=== PATIENT | female | born 1940 ===

== ENCOUNTER 2017-04-15 13:18 | Emergency (ER) | payer MEDICARE ==
[2017-04-15 13:19] VITALS: PULSE 72
[2017-04-15 13:28] VITALS: BP 117/62; PULSE 80; RESP 20; TEMP 98.1; O2SAT 99; BMI 23.0
--- NOTE | 2017-04-15 13:42 | ED PDOC ---
Arrival/HPI - General Historian: Patient - General Chief Complaint: Trauma Time Seen by Provider: 04/15/17 13:34 - History of Present Illness Narrative History of Present Illness (Text): 04/15/17 13:38 77 y/o female, pmh including htn/gerd/chf/copd, allergic to sulfa medication, c/ o lt. wrist injury and pain s/p fall and landed on the lt. wrist last night while slipped in the bathroom. Pt. has no head or neck injury, no numbness or tingling, no palpitation, no rash, no dizziness, no difficulty moving the lt. hand and lt. hand 5 digits, no palpitation, no chest pain or shortness of breath , no change in vision, no other medical or psychological complaints. (José Miguel Og) Past Medical History - Provider Review Nursing Documentation Reviewed: Yes - Infectious Disease Hx of Infectious Diseases: None - Tetanus Immunization Tetanus Immunization: Unknown - Cardiac Hx Pacemaker: Yes - Pulmonary Hx Asthma: Yes Hx Chronic Obstructive Pulmonary Disease (COPD): Yes - Neurological Hx Seizures: Yes - HEENT Hx HEENT Disorder: Yes Hx Cataracts: Yes (sx b/l) Other/Comment: eye glasses - Renal Hx Renal Disorder: No - Endocrine/Metabolic Hx Diabetes Mellitus Type 1: Yes Hx Diabetes Mellitus Type 2: Yes Hx Hypothyroidism: Yes - Hematological/Oncological Hx Blood Disorders: Yes Hx Anemia: Yes (iron deficiency-IRON INFUSIONS) - Integumentary Hx Dermatological Disorder: No - Musculoskeletal/Rheumatological Hx Arthritis: Yes - Gastrointestinal Hx Gastrointestinal Disorders: Yes (gastritis/ hiatal hernia, gi bleed) - Genitourinary/Gynecological Hx Genitourinary Disorders: No - Psychiatric Hx Psychophysiologic Disorder: Yes (SMOKES 5 CIG A DAY. SMOKED FOR 50 YRS) Hx Anxiety: Yes Hx Substance Use: No - Surgical History Hx Cardiac Catheterization: Yes (5 stents) - Anesthesia Hx Anesthesia Reactions: No Hx Malignant Hyperthermia: No - Suicidal Assessment Feels Threatened In Home Enviroment: No Family/Social History - Physician Review Nursing Documentation Reviewed: Yes Family/Social History: Unknown Family HX Smoking Status: Current Some Days Smoker Hx Alcohol Use: No Hx Substance Use: No Hx Substance Use Treatment: No Allergies/Home Meds Allergies/Adverse Reactions: Allergies Sulfa (Sulfonamide Antibiotics) Allergy (Mild, Verified 08/08/16 02:44) RASH Home Medications: Home Meds Medication Instructions Recorded Confirmed Furosemide [Lasix] 40 mg PO QAM 05/26/12 03/13/17 Levothyroxine Sodium 75 mcg PO QAM 05/26/12 03/13/17 Warfarin [Coumadin] 4 mg PO DAILY 05/26/12 03/13/17 Gabapentin [Neurontin] 100 mg PO TID 05/22/15 03/13/17 Omeprazole [PrilOSEC] 40 mg PO DAILY 05/22/15 03/13/17 Simvastatin 40 mg PO QAM 05/22/15 03/13/17 ALPRAZolam [Xanax] 1 tab PO QPM 12/01/15 03/13/17 Carvedilol [Coreg] 1 tab PO BID 12/01/15 03/13/17 Cyclobenzaprine [Flexeril] 1 tab PO DAILY 12/01/15 03/13/17 Digoxin [Digitek] 1 tab PO DAILY 12/01/15 03/13/17 Isosorbide Mononitrate [Imdur] 2 tab PO DAILY 12/01/15 03/13/17 Lisinopril [Zestril] 1 tab PO DAILY 12/01/15 03/13/17 Meclizine [Antivert] 2.5 mg PO TID 12/01/15 03/13/17 Metformin HCl [Glucophage] 500 mg PO BID 12/01/15 03/13/17 Montelukast [Singulair] 1 tab PO HS 12/01/15 03/13/17 Naproxen Sodium [Naproxen Sodium 1 tab PO BID 12/01/15 03/13/17 ER] Oxycodone HCl/Acetaminophen 1 tab PO Q6H PRN 12/01/15 03/13/17 [Oxycodone-Acetaminophen 5-325] Prednisone 5 mg PO DAILY 12/01/15 03/13/17 Prochlorperazine [Compazine Tab] 5 tab PO Q4 12/01/15 03/13/17 Zolpidem [Ambien] 10 mg PO HS 12/01/15 03/13/17 Ergocalciferol (Vitamin D2) 50,000 units PO .WEEKLY 08/02/16 03/13/17 [Vitamin D] amLODIPine [Norvasc] 5 mg PO DAILY 08/02/16 03/13/17 traMADol [Ultram] 50 mg PO DAILY 08/02/16 03/13/17 Albuterol HFA [Ventolin HFA 90 0.09 mg IH Q8 PRN 03/13/17 03/13/17 mcg/actuation (8 g)] Review of Systems - Review of Systems Constitutional: absent: Fatigue, Fevers Eyes: absent: Vision Changes ENT: absent: Hearing Changes Respiratory: absent: SOB, Cough Cardiovascular: absent: Chest Pain Gastrointestinal: absent: Abdominal Pain, Diarrhea, Nausea, Vomiting Musculoskeletal: Arthralgias. absent: Back Pain, Neck Pain, Joint Swelling, Myalgias Skin: absent: Rash, Pruritis, Skin Lesions, Laceration, Abscess, Ulcer, Cellulitis Neurological: absent: Headache, Dizziness, Focal Weakness Psychiatric: absent: Anxiety, Depression, Suicidal Ideation Physical Exam Appearance: Positive for: Well-Appearing, Non-Toxic, Comfortable Pain Distress: Mild - Systems Exam Head: Present: Atraumatic, Normocephalic Pupils: Present: PERRL Extroacular Muscles: Present: EOMI Conjunctiva: Present: Normal Mouth: Present: Moist Mucous Membranes Neck: Present: Normal Range of Motion Respiratory/Chest: Present: Clear to Auscultation, Good Air Exchange. No: Respiratory Distress, Accessory Muscle Use Cardiovascular: Present: Regular Rate and Rhythm, Normal S1, S2. No: Murmurs Abdomen: Present: Normal Bowel Sounds. No: Tenderness, Distention, Peritoneal Signs Back: Present: Normal Inspection Upper Extremity: Present: Normal Inspection, Other (Lt. wrist/hand: +ttp on the distal radial region with skin intact, visible ecchymosis, no scaphoid tenderness, no hand or finger tenderness, FROM without limitation, sensation intact, motor 5/5, +radial pulse, capillary refill< 2 seconds, neurovascular intact. ). No: Cyanosis, Edema Lower Extremity: Present: Normal Inspection. No: Edema Neurological: Present: GCS=15, CN II-XII Intact, Speech Normal Skin: Present: Warm, Dry, Normal Color. No: Rashes Psychiatric: Present: Alert, Oriented x 3, Normal Insight, Normal Concentration Vital Signs Temp Pulse Resp BP Pulse Ox 04/15/17 13:26 98.1 F 80 20 117/62 99 04/15/17 13:23 80 18 100 Medical Decision Making - RAD Interpretation Hall Manager: Radiologist ED Course and Treatment: I was available for consultation during PA evaluation. The chart was reviewed by me, and I agree with disposition. The documented history was done by the physician retail manager in training. The documented physical exam was done by the physician retail manager in training. The documented procedures were done by the physician retail manager in training. (Aaron Bañuelos) 04/15/17 13:41 -pt. refused pain meds -Lt. wrist xray ordered. -acewrap applied with neurovascular intact, closed skin injury -Discharge home with brant wrap, sling, ice compression, tylenol for pain, follow up with your own pmd and orthopedic within 2 days, return to the ER for any new or worsening signs or symptoms. (José Miguel Og) - RAD Interpretation Radiology Orders: 04/15/17 13:38 WRIST, LEFT 3 VIEWS [RAD] Stat HISTORY: lt. wrist injury s/p fall last night COMPARISON: None. FINDINGS: BONES: Normal. No fracture. JOINTS: Normal. No dislocation. SOFT TISSUES: Normal. OTHER FINDINGS: None. IMPRESSION: Normal left wrist radiographs. (José Miguel Og) - PA / TAFFY PULLER / Resident Statement / has reviewed & agrees with the documentation as recorded. Disposition/Present on Arrival - Present on Arrival Any Indicators Present on Arrival: No History of DVT/PE: No History of Uncontrolled Diabetes: Yes Urinary Catheter: No History of Decub. Ulcer: No History Surgical Site Infection Following: None - Disposition Have Diagnosis and Disposition been Completed?: Yes Disposition Time: 13:42 Patient Plan: Discharge - Disposition Diagnosis: Accidental fall, Wrist pain Disposition: HOME/ ROUTINE Patient Problems: Current Active Problems Problem Status Onset Accidental fall Acute Condition: GOOD Additional Instructions: -Discharge home with brant wrap, sling, ice compression, tylenol for pain, follow up with your own pmd and orthopedic within 2 days, return to the ER for any new or worsening signs or symptoms. Prescriptions: Acetaminophen [Tylenol 325mg tab] 2 tab PO QID PRN #30 tab PRN Reason: Other Referrals: Christian Oliveros MD [Primary Care Provider] - Follow up with primary Rod Leiva DO [Staff Provider] - Follow up with primary Forms: WORK NOTE
--- NOTE | 2017-04-15 14:43 | RAD ---
PROCEDURE: Left Wrist Radiographs. HISTORY: lt. wrist injury s/p fall last night COMPARISON: None. FINDINGS: BONES: Normal. No fracture. JOINTS: Normal. No dislocation. SOFT TISSUES: Normal. OTHER FINDINGS: None. IMPRESSION: Normal left wrist radiographs.
== END 2017-04-15 15:38 | disposition home or self-care (01) ==
LOC: ED 13:18
DX: M25.532 Pain in left wrist (principal); W01.0XXA Fall on same level from slipping, tripping and stumbling without subsequent striking against object, initial encounter; Y93.E8 Activity, other personal hygiene; Y92.002 Bathroom of unspecified non-institutional (private) residence as the place of occurrence of the external cause

== ENCOUNTER 2017-08-26 16:25 | Observation (INO) | payer MEDICARE, MEDICAID ==
[2017-08-26 16:31] VITALS: BMI 22.6
[2017-08-26] MEDS ORDERED: Albuterol-Ipratrop 3 mg / 0.5 (3 ml) UD IH STA ×4 (16:38→18:58)
--- NOTE | 2017-08-26 17:00 | ED PDOC ---
Arrival/HPI - General Time Seen by Provider: 08/26/17 16:26 Historian: Patient - History of Present Illness Narrative History of Present Illness (Text): 08/26/17 16:55 A 77 year old female, whose past medical history includes COPD and CHF, brought into the emergency department by EMS for shortness of breath. Patient reports she was feeling fine until yesterday when she developed a non-productive cough. She states while ambulating around her shortness of breath worsened causing her to call EMS. Patient received Duoneb treatments on route to emergency room with mild improvement of symptoms. Patient notes chest tightness which is consistent with prior COPD exacerbations. Patient denies any fever, chills, nausea, vomiting, abdominal pain or any other complaints. PMD: Dr. Oliveros Hemtaologist: Dr. Newman Time/Duration: Other (yesterday) Symptom Course: Worsening Quality: Other Context: Home Past Medical History - Provider Review Nursing Documentation Reviewed: Yes - Infectious Disease Hx of Infectious Diseases: None - Tetanus Immunization Tetanus Immunization: Unknown - Cardiac Hx Pacemaker: Yes - Pulmonary Hx Asthma: Yes Hx Chronic Obstructive Pulmonary Disease (COPD): Yes - Neurological Hx Seizures: Yes - HEENT Hx HEENT Disorder: Yes Hx Cataracts: Yes (sx b/l) Other/Comment: eye glasses - Renal Hx Renal Disorder: No - Endocrine/Metabolic Hx Diabetes Mellitus Type 1: Yes Hx Diabetes Mellitus Type 2: Yes Hx Hypothyroidism: Yes - Hematological/Oncological Hx Blood Disorders: Yes Hx Anemia: Yes (iron deficiency-IRON INFUSIONS) - Integumentary Hx Dermatological Disorder: No - Musculoskeletal/Rheumatological Hx Arthritis: Yes - Gastrointestinal Hx Gastrointestinal Disorders: Yes (gastritis/ hiatal hernia, gi bleed) - Genitourinary/Gynecological Hx Genitourinary Disorders: No - Psychiatric Hx Psychophysiologic Disorder: Yes (SMOKES 5 CIG A DAY. SMOKED FOR 50 YRS) Hx Anxiety: Yes Hx Substance Use: No - Surgical History Hx Cardiac Catheterization: Yes (5 stents) - Anesthesia Hx Anesthesia Reactions: No Hx Malignant Hyperthermia: No - Suicidal Assessment Feels Threatened In Home Enviroment: No Family/Social History - Physician Review Nursing Documentation Reviewed: Yes Family/Social History: No Known Family HX Smoking Status: Current Some Days Smoker Hx Alcohol Use: No Hx Substance Use: No Hx Substance Use Treatment: No Allergies/Home Meds Allergies/Adverse Reactions: Allergies Sulfa (Sulfonamide Antibiotics) Allergy (Mild, Verified 08/08/16 02:44) RASH Home Medications: Home Meds Medication Instructions Recorded Confirmed Furosemide [Lasix] 40 mg PO DAILY 05/26/12 08/26/17 Levothyroxine Sodium 50 mcg PO DAILY 05/26/12 08/26/17 Warfarin [Coumadin] 4 mg PO DAILY 05/26/12 08/26/17 Omeprazole [PrilOSEC] 40 mg PO DAILY 05/22/15 08/26/17 Simvastatin 40 mg PO QAM 05/22/15 08/26/17 ALPRAZolam [Xanax] 1 tab PO QPM 12/01/15 08/26/17 Carvedilol [Coreg] 1 tab PO BID 12/01/15 08/26/17 Cyclobenzaprine [Flexeril] 1 tab PO DAILY 12/01/15 08/26/17 Digoxin [Digitek] 1 tab PO DAILY 12/01/15 08/26/17 Isosorbide Mononitrate [Imdur] 60 mg PO DAILY 12/01/15 08/26/17 Lisinopril [Zestril] 1 tab PO DAILY 12/01/15 08/26/17 Meclizine [Antivert] 2.5 mg PO TID 12/01/15 08/26/17 Metformin HCl [Glucophage] 500 mg PO BID 12/01/15 08/26/17 Montelukast [Singulair] 1 tab PO HS 12/01/15 08/26/17 Naproxen Sodium [Naproxen Sodium 1 tab PO BID 12/01/15 08/26/17 ER] Oxycodone HCl/Acetaminophen 1 tab PO Q6H PRN 12/01/15 08/26/17 [Oxycodone-Acetaminophen 5-325] Prochlorperazine [Compazine Tab] 5 tab PO Q4 12/01/15 08/26/17 Zolpidem [Ambien] 10 mg PO HS 12/01/15 08/26/17 Ergocalciferol (Vitamin D2) 50,000 units PO .WEEKLY 08/02/16 08/26/17 [Vitamin D] amLODIPine [Norvasc] 5 mg PO DAILY 08/02/16 08/26/17 traMADol [Ultram] 50 mg PO DAILY 08/02/16 08/26/17 Albuterol HFA [Ventolin HFA 90 0.09 mg IH Q8 PRN 03/13/17 08/26/17 mcg/actuation (8 g)] Allopurinol [Zyloprim] 100 mg PO BID 08/26/17 08/26/17 Lubiprostone [Amitiza] 24 mcg PO BID 08/26/17 08/26/17 Potassium Chloride [K-Dur 20] 20 meq PO DAILY 08/26/17 08/26/17 Sucralfate [Carafate] 1 gm PO Q12H 08/26/17 08/26/17 Review of Systems - Physician Review All systems were reviewed & negative as marked: Yes - Review of Systems Constitutional: absent: Fevers, Night Sweats Respiratory: SOB, Cough. absent: Sputum Cardiovascular: Chest Pain Gastrointestinal: absent: Abdominal Pain, Nausea, Vomiting Physical Exam Vital Signs Reviewed: Yes Vital Signs Temp Pulse Resp BP Pulse Ox 08/26/17 17:02 12 100 08/26/17 16:25 98.2 F 80 12 126/71 100 Temperature: Afebrile Blood Pressure: Normal Pulse: Regular Respiratory Rate: Normal Appearance: Positive for: Well-Appearing, Non-Toxic, Comfortable Pain Distress: None Mental Status: Positive for: Alert and Oriented X 3 - Systems Exam Head: Present: Atraumatic, Normocephalic Pupils: Present: PERRL Extroacular Muscles: Present: EOMI Conjunctiva: Present: Normal Mouth: Present: Moist Mucous Membranes Neck: Present: Normal Range of Motion Respiratory/Chest: Present: Good Air Exchange, Wheezes (wheezing bilaterally, speaking in full sentences), Other ([place] to right chest wall). No: Respiratory Distress, Accessory Muscle Use Cardiovascular: Present: Regular Rate and Rhythm, Normal S1, S2. No: Murmurs Abdomen: Present: Normal Bowel Sounds. No: Tenderness, Distention, Peritoneal Signs Back: Present: Normal Inspection Upper Extremity: Present: Normal Inspection, NORMAL PULSES. No: Cyanosis, Edema Lower Extremity: Present: Normal Inspection, NORMAL PULSES. No: Edema, CALF TENDERNESS Neurological: Present: GCS=15, CN II-XII Intact, Speech Normal Skin: Present: Warm, Dry, Normal Color. No: Rashes Psychiatric: Present: Alert, Oriented x 3, Normal Insight, Normal Concentration Medical Decision Making ED Course and Treatment: 08/26/17 16:55 Impression: A 77 year old female with shortness of breath. Patient notes non-productive cough and chest tightness. Plan: -- Chest xray -- EKG -- Labs -- Duoneb, Aspirin and Solumedrol -- Reassess and disposition Progress Notes: EKG shows paced rhythm at 80 BPM with no acute changes from prior on 08/02/16. Interpreted by me. 08/26/17 18:04 Chest xray read and interpreted by me, which shows negative for pneumonia or pulmonary venous congestion. Patients wheezing has improved after duoneb treatments. Labs reviewed, normal wbc, troponin x1 negative, although BNP elevated. Symptoms consistent more with COPD rather than CHF. Case discussed with Dr. Lincoln, states to admit to telemetry observation. - Lab Interpretations Lab Results: 08/26/17 16:57 08/26/17 16:57 Lab Results 08/26/17 16:57: Sodium 141, Potassium 4.0, Chloride 105, Carbon Dioxide 30, Anion Gap 10, BUN 23 H, Creatinine 1.2, Est GFR ( Amer) 53, Est GFR (Non- Af Amer) 44, Random Glucose 99, Calcium 9.6, Phosphorus 2.4 L, Magnesium 1.7, Total Bilirubin 1.4 H, AST 22, ALT 29, Alkaline Phosphatase 162 H, Total Creatine Kinase 23 L, Troponin I < 0.01 D, NT-Pro-B Natriuret Pep 6530 H, Total Protein 6.9, Albumin 4.1, Globulin 2.8, Albumin/Globulin Ratio 1.5 08/26/17 16:57: PT 15.8 H, INR 1.44 H, APTT 36.8 H 08/26/17 16:57: WBC 5.0, RBC 3.64, Hgb 12.2, Hct 37.3, MCV 102.5, MCH 33.5, MCHC 32.7, RDW 15.4 H, Plt Count 124, MPV 9.6, Gran % 74.6 H, Lymph % (Auto) 17.0 L, [place] % (Auto) 4.6, Eos % (Auto) 3.6, Baso % (Auto) 0.2, Gran # 3.73, Lymph # 0.9 L, [place] # 0.2, Eos # 0.2, Baso # 0.01 I have reviewed the lab results: Yes - RAD Interpretation Radiology Orders: 08/26/17 16:35 CHEST PORTABLE [RAD] Stat - Medication Orders Current Medication Orders: Discontinued Medications Albuterol/Ipratropium (Duoneb 3 Mg/0.5 Mg (3 Ml) Ud) 3 ml IH STAT STA Stop: 08/26/17 16:39 Last Admin: 08/26/17 16:38 Dose: 3 ml Albuterol/Ipratropium (Duoneb 3 Mg/0.5 Mg (3 Ml) Ud) 3 ml IH STAT STA Stop: 08/26/17 16:40 Last Admin: 08/26/17 17:00 Dose: 3 ml Albuterol/Ipratropium (Duoneb 3 Mg/0.5 Mg (3 Ml) Ud) 3 ml IH STAT STA Stop: 08/26/17 18:05 Aspirin (Aspirin Chewable) 324 mg PO STAT STA Stop: 08/26/17 16:41 Last Admin: 08/26/17 17:11 Dose: 324 mg Methylprednisolone (Solu-Medrol) 125 mg IVP STAT STA Stop: 08/26/17 16:39 Last Admin: 08/26/17 17:10 Dose: IVP Administration Document 08/26/17 17:10 RG (Rec: 08/26/17 17:10 RG [id number]) Charges for Administration # of IVP Administrations 1 - Scribe Statement The provider has reviewed the documentation as recorded by the Lolis Gilbert Provider Scribe Attestation: All medical record entries made by the Scribe were at my direction and personally dictated by me. I have reviewed the chart and agree that the record accurately reflects my personal performance of the history, physical exam, medical decision making, and the department course for this patient. I have also personally directed, reviewed, and agree with the discharge instructions and disposition. Disposition/Present on Arrival - Present on Arrival Any Indicators Present on Arrival: No History of DVT/PE: No History of Uncontrolled Diabetes: Yes Urinary Catheter: No History Surgical Site Infection Following: None - Disposition Have Diagnosis and Disposition been Completed?: Yes Diagnosis: COPD exacerbation Disposition: HOSPITALIZED Disposition Time: 18:04 Patient Plan: Observation Condition: FAIR Referrals: Alexandra Newman MD [Primary Care Provider] - Follow up with primary
[2017-08-26 17:25] LABS: BASO # 0.01 K/mm3 (0.0-2.0); BASO % 0.2 % (0.0-3.0); EOS # 0.2 (0.0-0.7); EOS % 3.6 % (1.5-5.0); GRAN # 3.73 (1.4-6.5); GRAN % 74.6 % (50.0-68.0); HEMATOCRIT 37.3 % (36.0-48.0); LYMPH # 0.9 (1.2-3.4); MEAN CELL VOLUME 102.5 fl (80.0-105.0); MEAN CORPUSCULAR HEMOGLOBIN 33.5 pg (25.0-35.0); MEAN CORPUSCULAR HGB CONC 32.7 g/dl (31.0-37.0); MEAN PLATELET VOLUME 9.6 fl (7.0-11.0); MONO # 0.2 (0.1-0.6); MONO % 4.6 % (1.0-6.0); RED CELL DISTRIBUTION WIDTH 15.4 % (11.5-14.5)
[2017-08-26 17:28] LABS: ALB/GLOB RATIO 1.5 (1.1-1.8); ALKALINE PHOSPHATASE 162 U/L (38-126); ALT/SGPT 29 U/L (7-56); AST/SGOT 22 U/L (14-36); BILIRUBIN,TOTAL 1.4 mg/dL (0.2-1.3); BLOOD UREA NITROGEN 23 mg/dL (7-21); CALCIUM 9.6 mg/dL (8.4-10.5); CARBON DIOXIDE 30 mmol/L (21-33); CHLORIDE 105 mmol/L (98-107); GFR AFRICAN-AMERICAN 53; GLUCOSE,RANDOM 99 mg/dL (70-110); MAGNESIUM 1.7 mg/dL (1.7-2.2); PHOSPHOROUS 2.4 mg/dL (2.5-4.5); SODIUM 141 mmol/L (132-148); TOTAL PROTEIN 6.9 g/dL (5.8-8.3)
[2017-08-26 17:37] LABS: INR 1.44 (0.93-1.08); PARTIAL THROMBOPLASTIN TIME 36.8 Seconds (25.1-36.5)
[2017-08-26 17:40] LABS: TROPONIN I < 0.01 ng/mL
--- NOTE | 2017-08-26 18:22 | RAD ---
HISTORY: Shortness of breath. COMPARISON: No prior. FINDINGS: LUNGS: No active pulmonary disease. PLEURA: No significant pleural effusion identified, no pneumothorax apparent. CARDIOVASCULAR: No radiographic findings to suggest acute or significant cardiovascular disease. Venous access catheter in stable, satisfactory position. Position/ configuration of pacemaker device: Satisfactory. OSSEOUS STRUCTURES: No significant abnormalities. VISUALIZED UPPER ABDOMEN: Normal. OTHER FINDINGS: None. IMPRESSION: No active disease. No significant interval change compared to the prior examination(s).
[2017-08-26] MEDS ORDERED: Albuterol-Ipratrop 3 mg / 0.5 (3 ml) UD IH PRN (21:23)
[2017-08-26] MEDS ORDERED: Albuterol-Ipratrop 3 mg / 0.5 (3 ml) UD IH SCH (21:30)
[2017-08-26 23:44] VITALS: RESP 20
[2017-08-27 00:09] VITALS: O2SAT 96
[2017-08-27 06:28] VITALS: BP 130/66; TEMP 98.5
[2017-08-27 09:33] VITALS: PULSE 80
[2017-08-27] MEDS ORDERED: Levothyroxine 50 MCG TAB PO SCH (10:00)
[2017-08-27] MEDS ORDERED: Digoxin 125 mcg (0.125 mg) Tab PO SCH (10:00)
[2017-08-27] MEDS ORDERED: Furosemide 40 mg/5 mL Oral Soln UD PO SCH (10:00)
[2017-08-27] MEDS ORDERED: MethylPREDNISolone 40 mg Vial IVP SCH (10:00)
--- NOTE | 2017-08-27 22:27 | CARD ---
APPROVED REPORT EKG Measurement Heart [id number] <Conclusion> Biventricular paced rhythm. Abnormal ECG
--- NOTE | 2017-08-28 00:08 | HP ---
CHIEF COMPLAINT AND HISTORY OF PRESENT ILLNESS: This is a 77-year-old female who is coming into the hospital with complaints of shortness of breath. She has history of COPD and CHF. The patient states that she became short of breath. She was feeling well up until yesterday before she came in to the ER. She was started developing a cough that was nonproductive. She was able to walk, but was having more shortness of breath. She was concerned about her breathing, so came in for further evaluation. The patient was found to be wheezing and had been given nebulizer treatments. She was not improving as quickly as anticipated. So, she was admitted to the hospice for further evaluation. She said this morning that she is feeling much better. Her breathing has improved. She has no complaint of any chest pain. No shortness of breath after she received morning treatment of her DuoNeb. She has no nausea or vomiting. No fever or chills. The patient is feeling comfortable. She is asking to be discharged home. She states she has nebulizers at home that she can use. She states she feels well. She will follow up with her primary care doctor. REVIEW OF SYSTEMS: All other review of systems are within normal limits except as mentioned. ALLERGIES: SHE IS ALLERGIC TO SULFA. SOCIAL HISTORY: The patient was a smoker, 5 cigarettes a day, but she quit about 50 years ago. HOME MEDICATIONS: Reviewed on the [facility]. PAST MEDICAL HISTORY: 1. Coronary artery disease, status post CABG with stents, pacemaker defibrillator. 2. Dyslipidemia. 3. Hypertension. 4. Atrial fibrillation. 5. Diabetes type 2. 6. Anxiety. 7. Iron deficiency. FAMILY HISTORY: Noncontributory. PHYSICAL EXAMINATION VITAL SIGNS: She has a temperature of 98.5, pulse of 80, blood pressure 130/66, respiration is 20. GENERAL: The patient lying in bed, uncomfortable, and in no acute distress. HEENT: Atraumatic and normocephalic. Anicteric sclerae. Moist mucosa. [place] conjunctivae. No oral lesions. NECK: No JVD, anterior and posterior adenopathy, thyromegaly, or bruits. CARDIOVASCULAR: S1 and S2 regular. No murmur, rubs, or gallop. LUNGS: Clear to auscultation bilaterally. No wheezes, rales, or rhonchi. ABDOMEN: Bowel sounds are positive. Soft, nontender and nondistended. No hepatosplenomegaly. No rebound and no guarding EXTREMITIES: No cyanosis, clubbing, or edema. NEUROLOGIC: No facial asymmetry. Tongue is midline. No uvula deviation. Power is 5/5 upper extremity and lower extremity. Sensation intact in upper extremity and lower extremity. PSYCHIATRIC: She is awake, alert and oriented x3. No anxiety or depression. She has normal affect. GENITOURINARY: No CVA tenderness. VASCULAR: 2+ pulses in the carotid pulses and pedal pulses. SKIN: No erythema or nodules SPINE: Shows normal curvature. EXTREMITIES: No Cyanosis and clubbing, no edema. LABORATORY DATA: Labs have been reviewed. Her white count is 5.0, she had hemoglobin of 12.2. Creatinine is 1.2. She has INR 1.44. Chest x-ray done shows no acute disease. EKG shows paced rhythm at 80. ASSESSMENT: 1. Acute chronic obstructive pulmonary exacerbation. 2. Atrial fibrillation, on Coumadin. 3. Diabetes type 2. 4. Coronary artery disease. 5. Hypothyroidism. 6. Hypertension. PLAN: The patient is currently comfortable after receiving nebulizer treatment. She will continue her nebulizer treatment. I will give her IV steroids. She states she is able to ambulate and her breathing has much improved. She is asking being discharged home. I will discharge the patient to home today. She will get her morning IV steroids and then follow up with Dr. Oliveros. I will give her Medrol Dosepak and she will continue to use nebulizers at home. She was advised to follow up and back to the ER if her symptoms worsen. She is going to continue her amlodipine for her hypertension. She is on levothyroxine for her hypothyroidism. The patient is continuing on her carvedilol for her coronary artery disease. She is on simvastatin for her dyslipidemia. She is going to get insulin sliding scale and fingerstick. CONDITION: Stable. ACTIVITIES: Increase as tolerated. Joaquín Lincoln MD
== END 2017-08-27 12:17 | disposition home or self-care (01) ==
LOC: ED 16:25 → ERH 18:03 → 2RNO 22:19
PROVIDERS: ADMIT Internal Medicine Nephrology; ATTEND Internal Medicine Nephrology
DX: J44.1 Chronic obstructive pulmonary disease with (acute) exacerbation (principal); I50.9 Heart failure, unspecified; I25.10 Atherosclerotic heart disease of native coronary artery without angina pectoris; I11.0 Hypertensive heart disease with heart failure; E78.5 Hyperlipidemia, unspecified; E11.9 Type 2 diabetes mellitus without complications; I48.91 Unspecified atrial fibrillation; Z79.01 Long term (current) use of anticoagulants; F41.9 Anxiety disorder, unspecified; E03.9 Hypothyroidism, unspecified; Z95.1 Presence of aortocoronary bypass graft; Z87.891 Personal history of nicotine dependence; Z95.0 Presence of cardiac pacemaker
CPT/HCPCS: 71010; 80053; 82550; 83735; 83880; 84100; 84484; 85025; 85610; 85730; 93005; 94640; 96374; 99285; G0378; J1940; J2920

== ENCOUNTER 2018-01-29 13:27 | Emergency (ER) | payer MEDICARE, MEDICAID ==
[2018-01-29 13:27] VITALS: PULSE 80
--- NOTE | 2018-01-29 13:52 | ED PDOC ---
Arrival/HPI - General Time Seen by Provider: 01/29/18 13:35 Historian: Patient - History of Present Illness Narrative History of Present Illness (Text): 01/29/18 13:49 A 77 year old female, whose past medical history includes CHF, COPD, pacemaker and defibrillator, open heart surgery (few years ago), presents to the emergency department complaining of weakness. Patient reports also experiencing bilateral arm pain, lower back pain, and wheezing. Patient denies any other complaints at this time. PMD: Dr. Oliveros Oncologist: Dr. Newman Past Medical History - Provider Review Nursing Documentation Reviewed: Yes - Infectious Disease Hx of Infectious Diseases: None - Tetanus Immunization Tetanus Immunization: Unknown - Cardiac Hx Cardiac Arrhythmia: Yes (afib) Hx Circulatory Problems: Yes Hx Congestive Heart Failure: Yes Hx Hypertension: Yes Hx Internal Defibrillator: Yes Hx Pacemaker: Yes - Pulmonary Hx Asthma: Yes Hx Chronic Obstructive Pulmonary Disease (COPD): Yes - Neurological Hx Seizures: Yes Hx Transient Ischemic Attacks (TIA): Yes - HEENT Hx HEENT Disorder: Yes Hx Cataracts: Yes (sx b/l) Other/Comment: eye glasses - Renal Hx Renal Disorder: No Hx Renal Failure: Yes - Endocrine/Metabolic Hx Diabetes Mellitus Type 1: Yes Hx Diabetes Mellitus Type 2: Yes Hx Hypothyroidism: Yes - Hematological/Oncological Hx Blood Disorders: Yes Hx Anemia: Yes (iron deficiency-IRON INFUSIONS) - Integumentary Hx Dermatological Disorder: No - Musculoskeletal/Rheumatological Hx Arthritis: Yes Hx Back Pain: Yes Hx Falls: Yes Hx Unsteady Gait: Yes - Gastrointestinal Hx Gastrointestinal Disorders: Yes (gastritis/ hiatal hernia, gi bleed) Other/Comment: hiatal hernia:GI Bleed;gastritis - Genitourinary/Gynecological Hx Genitourinary Disorders: No - Psychiatric Hx Psychophysiologic Disorder: Yes (SMOKES 5 CIG A DAY. SMOKED FOR 50 YRS) Hx Anxiety: Yes Hx Depression: Yes Hx Substance Use: No - Surgical History Hx Cardiac Catheterization: Yes (5 stents) Hx Coronary Stent: Yes (5) Hx Open Heart Surgery: Yes - Anesthesia Hx Anesthesia Reactions: No Hx Malignant Hyperthermia: No - Suicidal Assessment Feels Threatened In Home Enviroment: No Family/Social History - Physician Review Nursing Documentation Reviewed: Yes Family/Social History: No Known Family HX Smoking Status: Current Some Days Smoker Hx Alcohol Use: No Hx Substance Use: No Hx Substance Use Treatment: No Allergies/Home Meds Allergies/Adverse Reactions: Allergies Sulfa (Sulfonamide Antibiotics) Allergy (Mild, Verified 01/29/18 15:09) RASH Home Medications: Home Meds Medication Instructions Recorded Confirmed Furosemide [Lasix] 40 mg PO DAILY 05/26/12 01/29/18 Levothyroxine Sodium 50 mcg PO DAILY 05/26/12 01/29/18 Warfarin [Coumadin] 4 mg PO DAILY 05/26/12 01/29/18 Omeprazole [PrilOSEC] 40 mg PO DAILY 05/22/15 01/29/18 Simvastatin 40 mg PO QAM 05/22/15 01/29/18 ALPRAZolam [Xanax] 1 tab PO QPM 12/01/15 01/29/18 Carvedilol [Coreg] 1 tab PO BID 12/01/15 01/29/18 Cyclobenzaprine [Flexeril] 1 tab PO DAILY 12/01/15 01/29/18 Digoxin [Digitek] 1 tab PO DAILY 12/01/15 01/29/18 Isosorbide Mononitrate [Imdur] 60 mg PO DAILY 12/01/15 01/29/18 Lisinopril [Zestril] 1 tab PO DAILY 12/01/15 01/29/18 Meclizine [Antivert] 2.5 mg PO TID 12/01/15 01/29/18 Metformin HCl [Glucophage] 500 mg PO BID 12/01/15 01/29/18 Montelukast [Singulair] 1 tab PO HS 12/01/15 01/29/18 Naproxen Sodium [Naproxen Sodium 1 tab PO BID 12/01/15 01/29/18 ER] Oxycodone HCl/Acetaminophen 1 tab PO Q6H PRN 12/01/15 01/29/18 [Oxycodone-Acetaminophen 5-325] Prochlorperazine [Compazine Tab] 5 tab PO Q4 12/01/15 01/29/18 Zolpidem [Ambien] 10 mg PO HS 12/01/15 01/29/18 Ergocalciferol (Vitamin D2) 50,000 units PO .WEEKLY 08/02/16 01/29/18 [Vitamin D] amLODIPine [Norvasc] 5 mg PO DAILY 08/02/16 01/29/18 traMADol [Ultram] 50 mg PO DAILY 08/02/16 01/29/18 Albuterol HFA [Ventolin HFA 90 0.09 mg IH Q8 PRN 03/13/17 01/29/18 mcg/actuation (8 g)] Allopurinol [Zyloprim] 100 mg PO BID 08/26/17 01/29/18 Lubiprostone [Amitiza] 24 mcg PO BID 08/26/17 01/29/18 Potassium Chloride [K-Dur 20] 20 meq PO DAILY 08/26/17 01/29/18 Sucralfate [Carafate] 1 gm PO Q12H 08/26/17 01/29/18 Review of Systems - Physician Review All systems were reviewed & negative as marked: Yes - Review of Systems Constitutional: Normal Eyes: Normal ENT: Normal Respiratory: Wheezing Cardiovascular: Normal Gastrointestinal: Normal Genitourinary Female: Normal Musculoskeletal: Back Pain (lower), Other (bilateral arm pain) Skin: Normal Neurological: Normal Endocrine: Normal Hemo/Lymphatic: Normal Psychiatric: Normal Physical Exam Vital Signs Reviewed: Yes Vital Signs Temp Pulse Resp BP Pulse Ox 01/29/18 15:28 79 18 141/63 98 01/29/18 14:20 146/65 01/29/18 13:57 98.0 F 86 18 146/65 98 Temperature: Afebrile Blood Pressure: Normal Pulse: Regular Respiratory Rate: Normal Appearance: Positive for: Well-Appearing, Non-Toxic, Comfortable Pain Distress: None Mental Status: Positive for: Alert and Oriented X 3 - Systems Exam Head: Present: Atraumatic, Normocephalic Pupils: Present: PERRL Extroacular Muscles: Present: EOMI Conjunctiva: Present: Other (pale) Mouth: Present: Moist Mucous Membranes Neck: Present: Normal Range of Motion Respiratory/Chest: Present: Good Air Exchange, Wheezes (bilaterally). No: Clear to Auscultation, Respiratory Distress, Accessory Muscle Use, Rales, Rhonchi Cardiovascular: Present: Regular Rate and Rhythm, Normal S1, S2. No: Murmurs Abdomen: No: Tenderness, Distention, Peritoneal Signs Back: Present: Paraspinal Tenderness (right lower lumbar bilaterally). No: CVA Tenderness Upper Extremity: Present: Normal Inspection. No: Cyanosis, Edema Lower Extremity: Present: Normal Inspection. No: Edema Neurological: Present: GCS=15, CN II-XII Intact, Speech Normal Skin: Present: Warm, Normal Color. No: Rashes Psychiatric: Present: Alert, Oriented x 3, Normal Insight, Normal Concentration Medical Decision Making ED Course and Treatment: 01/29/18 13:54 Impression: 77 year old female with weakness, bilateral arm pain, and lower back pain. Physical exam shows bilateral wheezing, no rhonchi/rales; bilateral paraspinal tenderness to right lower lumbar region. Differential Diagnosis included but are not limited to: Anemia; COPD; Lumbar Strain Plan: -- EKG -- Chest X-ray -- Labs -- Venous Blood Gas -- Tylenol -- Duoneb -- Lasix -- SOLU-Medrol -- Urinalysis -- Blood Culture -- Urine Culture -- Reassess and disposition Progress Notes: EKG: Ordered, reviewed, and independently interpreted the EKG. Rate : 80 BPM Rhythm : Pacemaker Interpretation : No ST-segment elevations or depressions, no T-wave inversions, normal intervals. Comparison : No previous EKG for comparison. Report Date : 01/29/2018 15:34:52 Procedure: Chest xray Dictator : Daniel Carlson MD IMPRESSION: No active disease. No significant interval change compared to the prior examination(s). Case discussed with Dr. Newman, agrees with patient admission to telemetry for observation. The patient is choosing to leave against medical advice. She has capacity to make decisions as based by my evaluation. I have personally explained to the patient that choosing to do so may result in permanent bodily harm or . I have discussed at great length that without further evaluation and monitoring there may be unforeseen circumstances and/or deterioration causing permanent bodily harm or as a result of their choice. The patient is alert, oriented , and shows the mental capacity to make clear decisions regarding the patients health care at this time. The patient continues to wish to leave against medical advice. In light of the patients decision to leave against medical advice, follow-up has been arranged and the patient is aware of the importance to following up as instructed. The patient has been advised that they should return to the emergency room immediately if they change their mind at any time, or if their condition begins to change or worsen in any way. Dr. Oneal informed that patient was leaving AMA. - Lab Interpretations Lab Results: 01/29/18 15:14 01/29/18 15:14 Lab Results 01/29/18 16:46: Urine Color Yellow, Urine Appearance Sl cloudy, Urine pH 6.0, Ur Specific Raymond 1.010, Urine Protein Negative, Urine Glucose (UA) Negative, Urine Ketones Negative, Urine Blood Negative, Urine Nitrate Negative, Urine Bilirubin Negative, Urine Urobilinogen 0.2, Ur Leukocyte Esterase Small H, Urine RBC Negative, Urine WBC 5 - 10, Ur Epithelial Cells 3 - 4, Urine Bacteria Few 01/29/18 15:18: Blood Type AB POSITIVE, Antibody Screen Negative, BBK History Checked Patient has bt 01/29/18 15:14: Sodium 134, Chloride 92 L, Potassium 3.9, Carbon Dioxide 32, Anion Gap 14, BUN 37 H, Creatinine 1.8 H, Est GFR ( Amer) 33, Est GFR ( Non-Af Amer) 27, Random Glucose 109, Calcium 9.0, Total Bilirubin 1.6 H, AST 25 , ALT 32, Alkaline Phosphatase 157 H D, Lactate Dehydrogenase 606, Total Creatine Kinase 22 L, Troponin I 0.06 D, NT-Pro-B Natriuret Pep 5250 H, Total Protein 7.2, Albumin 4.2, Globulin 2.9, Albumin/Globulin Ratio 1.4 01/29/18 15:14: pO2 117 H, VBG pH 7.41, VBG pCO2 54.0, VBG HCO3 34.2 H, VBG Total CO2 35.9 H, VBG O2 Sat (Calc) 98.7 H, VBG Base Excess 7.8 H, VBG Potassium 3.8, Sodium 134.0, Chloride 96.0 L, Glucose 110 H, Lactate 0.8, FiO2 21.0, Venous Blood Potassium 3.8 01/29/18 15:14: PT 26.3 H, INR 2.27 H, APTT 40.8 H 01/29/18 15:14: WBC 7.3 D, RBC 3.68, Hgb 12.5, Hct 35.5 L, MCV 96.5 D, MCH 34.0, MCHC 35.2, RDW 13.4, Plt Count 160, MPV 10.0, Gran % 80.9 H, Lymph % (Auto ) 11.8 L, [place] % (Auto) 7.1 H, Eos % (Auto) 0.1 L, Baso % (Auto) 0.1, Gran # 5.91, Lymph # (Auto) 0.9 L, [place] # (Auto) 0.5, Eos # (Auto) 0.0, Baso # (Auto) 0.01 - RAD Interpretation Radiology Orders: 01/29/18 13:58 CHEST PORTABLE [RAD] Stat - Medication Orders Current Medication Orders: Discontinued Medications Acetaminophen (Tylenol 325mg Tab) 650 mg PO STAT STA Stop: 01/29/18 13:59 Last Admin: 01/29/18 14:17 Dose: 650 mg MAR Pain/Vitals Document 01/29/18 14:17 JOVITA (Rec: 01/29/18 14:18 JOVITA [id number]) Pain Reassessment Is This A Pain ReAssessment? Yes Presence of Pain Presence of Pain Yes Pain Scale Used Pain Scale Used Numeric Location Pain Location Body Site low back Description Acute Intensity 6 Albuterol/Ipratropium (Duoneb 3 Mg/0.5 Mg (3 Ml) Ud) 3 ml IH Q15M HECTOR Stop: 01/29/18 14:31 Last Admin: 01/29/18 15:00 Dose: 3 ml Furosemide (Lasix) 40 mg IVP STAT STA Stop: 01/29/18 13:59 Last Admin: 01/29/18 14:20 Dose: 40 mg MAR Blood Pressure Document 01/29/18 14:20 JOVITA (Rec: 01/29/18 14:21 JOVITA [id number]) Blood Pressure Blood Pressure (100/60-150/90) 146/65 IVP Administration Document 01/29/18 14:20 JOVITA (Rec: 01/29/18 14:21 JOVITA [id number]) Charges for Administration # of IVP Administrations 1 Methylprednisolone (Solu-Medrol) 125 mg IVP STAT STA Stop: 01/29/18 13:59 Last Admin: 01/29/18 14:17 Dose: 125 mg IVP Administration Document 01/29/18 14:17 JOVITA (Rec: 01/29/18 14:19 JOVITA [id number]) Charges for Administration # of IVP Administrations 1 - Scribe Statement The provider has reviewed the documentation as recorded by the Lolis Morgan Provider Scribe Attestation: All medical record entries made by the Leonelibe were at my direction and personally dictated by me. I have reviewed the chart and agree that the record accurately reflects my personal performance of the history, physical exam, medical decision making, and the department course for this patient. I have also personally directed, reviewed, and agree with the discharge instructions and disposition. Disposition/Present on Arrival - Present on Arrival Any Indicators Present on Arrival: Yes History of DVT/PE: No History of Uncontrolled Diabetes: Yes Urinary Catheter: No History Surgical Site Infection Following: None - Disposition Have Diagnosis and Disposition been Completed?: Yes Diagnosis: COPD exacerbation, CHF (congestive heart failure) Disposition: AGAINST MEDICAL ADVICE Disposition Time: 16:50 Patient Problems: Current Active Problems Problem Status Onset CHF (congestive heart failure) Acute COPD exacerbation Acute Condition: FAIR
[2018-01-29 13:57] VITALS: BMI 22.8
[2018-01-29] MEDS: Albuterol-Ipratrop 3 mg / 0.5 (3 ml) UD IH SCH ×3 (14:18→15:00)
[2018-01-29 15:18] LABS: BASO # 0.01 K/mm3 (0.0-2.0); BASO % 0.1 % (0.0-3.0); EOS % 0.1 % (1.5-5.0); GRAN # 5.91 (1.4-6.5); GRAN % 80.9 % (50.0-68.0); HEMOGLOBIN 12.5 g/dL (12.0-16.0); LYMPH # 0.9 (1.2-3.4); LYMPH % 11.8 % (22.0-35.0); MEAN CELL VOLUME 96.5 fl (80.0-105.0); MEAN CORPUSCULAR HGB CONC 35.2 g/dl (31.0-37.0); MONO # 0.5 (0.1-0.6); MONO % 7.1 % (1.0-6.0); RBC 3.68 10^6/uL (3.5-6.1); RED CELL DISTRIBUTION WIDTH 13.4 % (11.5-14.5); WHITE BLOOD COUNT 7.3 10^3/ul (4.5-11.0)
[2018-01-29 15:22] LABS: VENOUS BLOOD GAS BASE EXCESS 7.8 mmol/L (0.0-2.0); VENOUS BLOOD GAS PO2 117 mm/Hg (30-55); VENOUS BLOOD PH 7.41 (7.32-7.43)
[2018-01-29 15:37] LABS: ALB/GLOB RATIO 1.4 (1.1-1.8); ALBUMIN 4.2 g/dL (3.0-4.8)
[2018-01-29 15:43] LABS: TROPONIN I 0.06 ng/mL
[2018-01-29 15:45] LABS: INR 2.27 (0.93-1.08); PARTIAL THROMBOPLASTIN TIME 40.8 Seconds (25.1-36.5); PROTHROMBIN TIME 26.3 SECONDS (9.4-12.5)
--- NOTE | 2018-01-29 15:48 | RAD ---
HISTORY: sob COMPARISON: 08/26/2017. FINDINGS: LUNGS: No active pulmonary disease. PLEURA: No significant pleural effusion identified, no pneumothorax apparent. CARDIOVASCULAR: Shortness of breath Cardiomegaly. No evidence of acute, significant cardiovascular disease. Position/ configuration of pacemaker device: Satisfactory. Venous access catheter in stable, satisfactory position. OSSEOUS STRUCTURES: No significant abnormalities. VISUALIZED UPPER ABDOMEN: Normal. OTHER FINDINGS: None. IMPRESSION: No active disease. No significant interval change compared to the prior examination(s).
[2018-01-29 17:04] LABS: URINE BILIRUBIN NEGATIVE (NEGATIVE); URINE BLOOD NEGATIVE (NEGATIVE); URINE GLUCOSE (UA) NEGATIVE (NEGATIVE); URINE LEUKOCYTE ESTERASE SMALL Leu/uL (NEGATIVE); URINE PROTEIN NEGATIVE mg/dL (<30 mg/dL); URINE UROBILINOGEN 0.2 E.U./dL (<1 E.U./dL)
[2018-01-29 17:09] LABS: URINE APPEARANCE SL CLOUDY (CLEAR); URINE COLOR YELLOW (YELLOW)
[2018-01-29 17:20] LABS: URINE BACTERIA FEW (NEG); URINE RBC NEGATIVE /hpf (0-2)
[2018-01-29 17:56] VITALS: BP 139/88; PULSE 82; RESP 16; TEMP 97.9; O2SAT 96
--- NOTE | 2018-01-29 22:09 | CARD ---
APPROVED REPORT EKG Measurement Heart [id number] <Conclusion> Biventricular paced rhythm. Abnormal ECG
== END 2018-01-29 17:20 | disposition left against medical advice (07) ==
LOC: ED 13:27 → ERH 16:54 → UNDOADMOB 16:54 → ED 17:20
DX: M54.5 Low back pain (principal); M79.601 Pain in right arm; J44.1 Chronic obstructive pulmonary disease with (acute) exacerbation; I50.9 Heart failure, unspecified; I10 Essential (primary) hypertension; E11.9 Type 2 diabetes mellitus without complications; F17.200 Nicotine dependence, unspecified, uncomplicated; I48.91 Unspecified atrial fibrillation; E03.9 Hypothyroidism, unspecified
CPT/HCPCS: 71045; 80053; 81001; 82550; 82803; 83615; 83880; 84484; 85025; 85610; 85730; 86850; 86900; 87040; 87086; 93005; 96374; 96375; 99285; J1940; J2930

== ENCOUNTER 2018-01-30 13:21 | Inpatient (IN) | payer MEDICARE, MEDICAID ==
[2018-01-30 13:22] VITALS: PULSE 80
[2018-01-30] MEDS ORDERED: Sodium Chloride 0.9% 500 ML IV STA (13:42)
[2018-01-30] MEDS ORDERED: Morphine 4 mg/ml ISec IVP STA (13:43)
[2018-01-30] MEDS ORDERED: Sodium Chloride 0.9% 1,000 ML IV SCH (13:45)
--- NOTE | 2018-01-30 13:46 | ED PDOC ---
Arrival/HPI - General Chief Complaint: Back Pain Time Seen by Provider: 01/30/18 13:38 Historian: Patient - History of Present Illness Narrative History of Present Illness (Text): 01/30/18 13:30 77 year old female, whose PMH includes CHF, COPD, hypertension, and diabetes, who presents to the emergency department complaining of severe lower back pain since one day ago and became worse this morning. Patient rates pain greater than 10 out 10 and states she currently cannot move from the bed due to worsening pain and discomfort. Pt states any movement, position changes, causes her back pain to act up; pt took her medications without any relief; Patient denies fever, shortness of breath, chest pain, abd pain, nausea/vomiting, dysuria, hematuria, flank pain, urinary bowel inconsistency, rectal or vaginal tingling or other complaints. Additionally, patient states her home medication is not helping her relief pain. pt is here for further eval pt's without other complaints. PMD: Dr. Domo Hernandez pt lives alone with caregiver occasionally Time/Duration: 24 hours Symptom Onset: Sudden Symptom Course: Worsening Severity Level: Severe Activities at Onset: Rest Context: Home Past Medical History - Provider Review Nursing Documentation Reviewed: Yes - Travel History Have you recently traveled outside [place] w/in the past 3 mons?: No - Past History Past History: No Previous - Infectious Disease Hx of Infectious Diseases: None - Tetanus Immunization Tetanus Immunization: Unknown - Reproductive Menopause: Yes Currently : No - Cardiac Hx Cardiac Disorders: Yes Hx Cardiac Arrhythmia: Yes (afib) Hx Circulatory Problems: Yes Hx Congestive Heart Failure: Yes Hx Hypertension: Yes Hx Internal Defibrillator: Yes Hx Pacemaker: Yes - Pulmonary Hx Respiratory Disorders: Yes Hx Asthma: Yes Hx Chronic Obstructive Pulmonary Disease (COPD): Yes - Neurological Hx Neurological Disorder: Yes Hx Seizures: Yes Hx Transient Ischemic Attacks (TIA): Yes - HEENT Hx HEENT Disorder: Yes Hx Cataracts: Yes (sx b/l) Other/Comment: eye glasses - Renal Hx Renal Disorder: Yes Hx Renal Failure: Yes - Endocrine/Metabolic Hx Endocrine Disorders: Yes Hx Diabetes Mellitus Type 1: Yes Hx Diabetes Mellitus Type 2: Yes Hx Hypothyroidism: Yes - Hematological/Oncological Hx Blood Disorders: Yes Hx Anemia: Yes (iron deficiency-IRON INFUSIONS) - Integumentary Hx Dermatological Disorder: No - Musculoskeletal/Rheumatological Hx Arthritis: Yes Hx Back Pain: Yes Hx Falls: Yes Hx Unsteady Gait: Yes - Gastrointestinal Hx Gastrointestinal Disorders: Yes (gastritis/ hiatal hernia, gi bleed) Other/Comment: hiatal hernia:GI Bleed;gastritis - Genitourinary/Gynecological Hx Genitourinary Disorders: No - Psychiatric Hx Psychophysiologic Disorder: Yes (SMOKES 5 CIG A DAY. SMOKED FOR 50 YRS) Hx Anxiety: Yes Hx Depression: Yes Hx Substance Use: No - Surgical History Hx Cardiac Catheterization: Yes (5 stents) Hx Coronary Stent: Yes (5) Hx Open Heart Surgery: Yes - Anesthesia Hx Anesthesia Reactions: No Hx Malignant Hyperthermia: No - Suicidal Assessment Feels Threatened In Home Enviroment: No Family/Social History - Physician Review Nursing Documentation Reviewed: Yes Family/Social History: Unknown Family HX Smoking Status: Current Some Days Smoker Hx Alcohol Use: No Hx Substance Use: No Hx Substance Use Treatment: No Allergies/Home Meds Allergies/Adverse Reactions: Allergies Sulfa (Sulfonamide Antibiotics) Allergy (Mild, Verified 01/29/18 15:09) RASH Home Medications: Home Meds Medication Instructions Recorded Confirmed Furosemide [Lasix] 40 mg PO DAILY 05/26/12 01/29/18 Levothyroxine Sodium 50 mcg PO DAILY 05/26/12 01/29/18 Warfarin [Coumadin] 4 mg PO DAILY 05/26/12 01/29/18 Omeprazole [PrilOSEC] 40 mg PO DAILY 05/22/15 01/29/18 Simvastatin 40 mg PO QAM 05/22/15 01/29/18 ALPRAZolam [Xanax] 1 tab PO QPM 12/01/15 01/29/18 Carvedilol [Coreg] 1 tab PO BID 12/01/15 01/29/18 Cyclobenzaprine [Flexeril] 1 tab PO DAILY 12/01/15 01/29/18 Digoxin [Digitek] 1 tab PO DAILY 12/01/15 01/29/18 Isosorbide Mononitrate [Imdur] 60 mg PO DAILY 12/01/15 01/29/18 Lisinopril [Zestril] 1 tab PO DAILY 12/01/15 01/29/18 Meclizine [Antivert] 2.5 mg PO TID 12/01/15 01/29/18 Metformin HCl [Glucophage] 500 mg PO BID 12/01/15 01/29/18 Montelukast [Singulair] 1 tab PO HS 12/01/15 01/29/18 Naproxen Sodium [Naproxen Sodium 1 tab PO BID 12/01/15 01/29/18 ER] Oxycodone HCl/Acetaminophen 1 tab PO Q6H PRN 12/01/15 01/29/18 [Oxycodone-Acetaminophen 5-325] Prochlorperazine [Compazine Tab] 5 tab PO Q4 12/01/15 01/29/18 Zolpidem [Ambien] 10 mg PO HS 12/01/15 01/29/18 Ergocalciferol (Vitamin D2) 50,000 units PO .WEEKLY 08/02/16 01/29/18 [Vitamin D] amLODIPine [Norvasc] 5 mg PO DAILY 08/02/16 01/29/18 traMADol [Ultram] 50 mg PO DAILY 08/02/16 01/29/18 Albuterol HFA [Ventolin HFA 90 0.09 mg IH Q8 PRN 03/13/17 01/29/18 mcg/actuation (8 g)] Allopurinol [Zyloprim] 100 mg PO BID 08/26/17 01/29/18 Lubiprostone [Amitiza] 24 mcg PO BID 08/26/17 01/29/18 Potassium Chloride [K-Dur 20] 20 meq PO DAILY 08/26/17 01/29/18 Sucralfate [Carafate] 1 gm PO Q12H 08/26/17 01/29/18 Review of Systems - Review of Systems Constitutional: absent: Fevers Eyes: absent: Vision Changes ENT: absent: Sore Throat Respiratory: absent: SOB, Cough Cardiovascular: absent: Chest Pain Gastrointestinal: absent: Abdominal Pain, Nausea Genitourinary Female: absent: Dysuria, Frequency, Vaginal Bleeding, Vaginal Discharge Musculoskeletal: Back Pain (lower back pain ) Skin: absent: Rash Neurological: absent: Headache Endocrine: absent: Diaphoresis Hemo/Lymphatic: Normal Psychiatric: Normal Physical Exam Vital Signs Reviewed: Yes Vital Signs Temp Pulse Resp BP Pulse Ox 01/30/18 14:11 80 18 125/68 95 01/30/18 13:30 98.4 F 80 18 123/62 95 Temperature: Afebrile Blood Pressure: Normal Pulse: Regular Respiratory Rate: Normal Appearance: Positive for: Well-Appearing, Non-Toxic, Uncomfortable, Other (alert /awake, uncomfortable, resting in bed, cooperative, oriented x 3; moderate distress due to pain) Pain Distress: Moderate Mental Status: Positive for: Alert and Oriented X 3 - Systems Exam Head: Present: Atraumatic, Normocephalic, Other (bi-temporal wasting) Pupils: Present: PERRL, Other (no nystagmus, no photophobia, sclera anicteric, visual field intact b/l) Extroacular Muscles: Present: EOMI Conjunctiva: Present: Normal Ears: Present: Normal Mouth: Present: Dry, Other (dry oral mucosa, fair dentitions, no drooling/ stridor, no exudate/lesions, uvula/tongue are midline) Pharnyx: Present: Normal Nose (External): Present: Atraumatic Nose (Internal): Present: Normal Inspection Neck: Present: Normal Range of Motion, Trachea Midline, Other (intact ROM, no midline tenderness, no nuchal rigidity, no meningeal signs; no step off). No: Meningeal Signs, MIDLINE TENDERNESS Respiratory/Chest: Present: Clear to Auscultation, Good Air Exchange, Other ( CTA b/l, no w/r/r, no tachypenia). No: Respiratory Distress, Accessory Muscle Use, Wheezes, Rales, Rhonchi Cardiovascular: Present: Regular Rate and Rhythm, Normal S1, S2, Other (+ left upper chest cardiac device placement; right vanessa-cath placement - well healed skin, no skin erythema noted). No: Murmurs Abdomen: Present: Normal Bowel Sounds, Other (thin female, no focal tenderness, no meléndez's sign, no mcburney's point tenderness, no masses/rebound/guarding/ rigidity). No: Tenderness, Distention, Peritoneal Signs, Rebound, Guarding Back: Present: Paraspinal Tenderness, Pain with Leg Raise, Other (slight kyphotic, no midline tenderness, no step off; diffuse lower lumbar/para-lumbar tenderness, no gross deformities, no ecchymosis noted). No: CVA Tenderness Upper Extremity: Present: Normal Inspection, Normal ROM, NORMAL PULSES, Neurovascularly Intact. No: Deformity Lower Extremity: Present: Normal Inspection, NORMAL PULSES, Normal ROM, Neurovascularly Intact. No: Deformity Neurological: Present: GCS=15, CN II-XII Intact, Speech Normal Skin: Present: Warm, Dry, Other (cap refill < 1sec, no ulcerations, no petechiae , no rashes, no lesions, mild pallor). No: Rashes Psychiatric: Present: Alert, Oriented x 3, Normal Insight, Normal Concentration Medical Decision Making ED Course and Treatment: 01/30/18 Impression: 77 year old female complaining of lower back severe pain for one day Differential Diagnosis included but are not limited to: r/o acute changes (fx) ; r/o infection Plan: -- EKG -- CT Lumbar spin -- Labs -- Morphine, Toradol, Sodium Chloride -- Urinalysis -- Reassess and disposition Progress Notes: 01/30/18 15:44 pt felt no gross improvement from medications prescribed for her low back pain from the ED pt states her pain remains ~ 9-10/10 given patient's continued discomfort and inability to stand/walk, with abnl lab results, will recommend patient for admission pt is made aware of her medical results pt agrees with admission I spoke to Dr Hernandez, made aware, agrees with ED mgt/txt, agrees with admission (likely obs admission), would like patient admitted to Dr Vega 1600 pt's vital signs are stable currently Re-evaluation Time: 15:50 Reassessment Condition: Unchanged - Lab Interpretations Lab Results: 01/30/18 14:07 01/30/18 14:07 Lab Results 01/30/18 14:07: pO2 66 H, VBG pH 7.43, VBG pCO2 48.0, VBG HCO3 31.9 H, VBG Total CO2 33.4 H, VBG O2 Sat (Calc) 95.8 H, VBG Base Excess 6.4 H, VBG Potassium 4.0, Sodium 133.0, Chloride 96.0 L, Glucose 120 H, Lactate 1.5, FiO2 21.0, Venous Blood Potassium 4.0 01/30/18 14:07: Digoxin 3.9 H* 01/30/18 14:07: Sodium 133, Chloride 93 L, Potassium 4.2, Carbon Dioxide 30, Anion Gap 15, BUN 49 H, Creatinine 2.1 H, Est GFR ( Amer) 28, Est GFR ( Non-Af Amer) 23, Random Glucose 116 H, Calcium 8.8, Total Bilirubin 0.9, AST 30 , ALT 27, Alkaline Phosphatase 153 H, Troponin I 0.08 D, Total Protein 6.9, Albumin 4.2, Globulin 2.7, Albumin/Globulin Ratio 1.6, Lipase 65 01/30/18 14:07: PT 27.2 H, INR 2.34 H, APTT 38.2 H 01/30/18 14:07: WBC 10.5 D, RBC 3.61, Hgb 12.3, Hct 34.3 L, MCV 95.0, MCH 34.1 , MCHC 35.9, RDW 13.3, Plt Count 182, MPV 10.2, Gran % 91.4 H, Lymph % (Auto) 4.5 L, [place] % (Auto) 4.1, Eos % (Auto) 0.0 L, Baso % (Auto) 0.0, Gran # 9.56 H, Lymph # (Auto) 0.5 L, [place] # (Auto) 0.4, Eos # (Auto) 0.0, Baso # (Auto) 0.00, Neutrophils % (Manual) 91 H, Lymphocytes % (Manual) 5 L, Monocytes % (Manual) 4 , Platelet Evaluation Normal, Anisocytosis (manual) Slight I have reviewed the lab results: Yes Interpretation: Abnormal lab values (elevated TROP/dig; elevated BUN/creat ( chronic)) - RAD Interpretation Narrative RAD Interpretations (Text): 01/30/18 16:57 PROCEDURE: CT Lumbar Spine without contrast HISTORY: lower back pain, severe COMPARISON: Lumbar spine radiographs 07/03/[address] examination 06/07/2016. TECHNIQUE: Axial computed tomography images were obtained of the lumbar spine without the use of intravenous contrast. Coronal and sagittal reformatted images were created and reviewed. Radiation dose: Total exam DLP = 294.37 mGy-cm. This CT exam was performed using one or more of the following dose reduction techniques: Automated exposure control, adjustment of the mA and/or kV according to patient size, and/or use of iterative reconstruction technique. FINDINGS: VERTEBRAE: Normal lumbar curvature is reiterated. There is a subtle anterior wedge compression fracture of the L1 vertebral body in the interval with remaining lumbar vertebral bodies normal in height overall. No fragmentation or retropulsion is identified related to this fracture. Local soft tissues grossly appear unremarkable as imaged. MRI is more sensitive and can be performed for additional detailed evaluation if clinically warranted. No spondylolisthesis. No destructive bony changes are appreciated otherwise with the posterior elements reflecting multilevel facet arthropathy concentrated at the lower lumbar levels. Intervertebral disc heights are normal above L5 with marked disc height loss identified at L5-S1 including vacuum disc changes. Prevertebral paraspinal soft tissues reflect non aneurysmal atherosclerotic aortic changes. DISCS/SPINAL CANAL/NEURAL FORAMINA: L1-2: Unremarkable. L2-3: Limited disc bulging is appreciated combining with facet arthropathy encroaching the lateral recesses without generalized central canal stenosis resulting. Borderline bilateral degenerative neural foraminal stenosis noted. L3-4: Minimal generalized disc bulging combines with mild facet to moderate facet joint degenerative changes encroaching the lateral recesses bilaterally without significant central stenosis otherwise evident. Borderline bilateral degenerative foraminal stenosis evident. L4-5: Prominent disc osteophyte complex is appreciated circumferential at this level combined with facet joint arthropathy causing mild central canal stenosis and moderate bilateral neural foraminal stenosis. L5-S1: A stable generalized disc bulge is appreciate with marked disc height loss and osteophyte development resulting in [id number] bilateral neural foraminal stenoses and left greater than right lateral recess stenosis. Borderline generalized central canal stenosis. PARASPINAL SOFT TISSUES: Unremarkable. OTHER FINDINGS: None. IMPRESSION: 1. A minimal compression fracture of L1 is suspected, age indeterminate but occurring in the interval compared to 06/07/2016 CT Lumbar Spine. No spondylolisthesis or retropulsion of fracture fragment. 2. Multilevel degenerative disc disease without severe stenosis resulting. Facet arthropathy combines with degenerative disc bulging at multiple levels. A mild central stenosis identified at L4-5 with moderate bilateral neural foraminal stenoses with stable [id number] bilateral neural foraminal stenosis at L5-S1, also on a degenerative basis. Radiology Orders: 01/30/18 13:42 LUMBAR SPINE W/O CONTRAST [CT] Stat Head Of Mobile: Radiologist - EKG Interpretation EKG Interpretation (Text): 01/30/18 15:36 paced rhythm at 80 bpm, RBBB?, no ectopy, ABNL EKG; unchanged compare with old ekg 01/2018 Interpreted by ED Physician: Yes Type: 12 lead EKG Comparison: Similar to previous EKG - Medication Orders Current Medication Orders: Sodium Chloride (Sodium Chloride 0.9%) 1,000 mls @ 100 mls/hr IV .Q10H HECTOR Last Admin: 01/30/18 14:14 Dose: 100 mls/hr eMAR Start Stop Document 01/30/18 14:14 SF (Rec: 01/30/18 14:15 SF [email or web address] Intravenous Solution Start Date 01/30/18 Start Time 14:15 End Date 01/30/18 Discontinued Medications Diazepam (Valium) 2 mg PO ONCE ONE PRN Reason: Protocol Stop: 01/30/18 13:44 Last Admin: 01/30/18 14:12 Dose: 2 mg Sodium Chloride (Sodium Chloride 0.9%) 500 mls @ 999 mls/hr IV .Q31M STA Stop: 01/30/18 14:12 Last Admin: 01/30/18 14:00 Dose: 999 mls/hr eMAR Start Stop Document 01/30/18 14:00 SF (Rec: 01/30/18 14:50 SF [email or web address] Intravenous Solution Start Date 01/30/18 Start Time 14:00 End Date 01/30/18 End time 14:30 Total Infusion Time 30 Ketorolac Tromethamine (Toradol) 15 mg IVP STAT STA Stop: 01/30/18 13:44 Last Admin: 01/30/18 14:12 Dose: 15 mg MAR Pain Assessment Document 01/30/18 14:12 SF (Rec: 01/30/18 14:13 SF [email or web address] Pain Reassessment Is this a pain reassessment? Yes Sleep Is patient sleeping during reassessment? No Presence of Pain Presence of Pain Yes IVP Administration Document 01/30/18 14:12 SF (Rec: 01/30/18 14:13 SF [email or web address] Charges for Administration # of IVP Administrations 1 Lidocaine (Lidoderm) 1 ea TD ONCE ONE Stop: 01/30/18 16:03 Morphine Sulfate (Morphine) 4 mg IVP STAT STA Stop: 01/30/18 13:44 Last Admin: 01/30/18 14:12 Dose: 4 mg MAR Pain Assessment Document 01/30/18 14:12 SF (Rec: 01/30/18 14:12 SF [email or web address] Pain Reassessment Is this a pain reassessment? Yes Sleep Is patient sleeping during reassessment? No Presence of Pain Presence of Pain Yes IVP Administration Document 01/30/18 14:12 SF (Rec: 01/30/18 14:12 SF [email or web address] Charges for Administration # of IVP Administrations 1 Oxycodone/Acetaminophen (Percocet 5/325 Mg Tab) 2 tab PO STAT STA Stop: 01/30/18 15:55 - Scribe Statement The provider has reviewed the documentation as recorded by the Scribe Vinita Gregorio Provider Scribe Attestation: All medical record entries made by the Scribe were at my direction and personally dictated by me. I have reviewed the chart and agree that the record accurately reflects my personal performance of the history, physical exam, medical decision making, and the department course for this patient. I have also personally directed, reviewed, and agree with the discharge instructions and disposition. Disposition/Present on Arrival - Present on Arrival Any Indicators Present on Arrival: No History of DVT/PE: No History of Uncontrolled Diabetes: Yes Urinary Catheter: No History of Decub. Ulcer: No History Surgical Site Infection Following: None - Disposition Have Diagnosis and Disposition been Completed?: Yes Diagnosis: Intractable low back pain, Ambulatory dysfunction, Elevated digoxin level, Weakness, Dehydration, Elevated troponin, Chronic renal insufficiency Diagnosis: (Ruled Out): Dehydration due to radiation Disposition: HOSPITALIZED Disposition Time: 16:00 Patient Plan: Admission, Observation Patient Problems: Current Active Problems Problem Status Onset Dehydration Acute Intractable low back pain Acute Ambulatory dysfunction Acute Elevated digoxin level Acute Weakness Acute Elevated troponin Acute Condition: STABLE Discharge Instructions (ExitCare): Weakness (ED) Forms: [employer] (Urdu)
[2018-01-30 14:16] LABS: VENOUS BLOOD GAS BASE EXCESS 6.4 mmol/L (0.0-2.0); VENOUS BLOOD GAS PO2 66 mm/Hg (30-55); VENOUS BLOOD PH 7.43 (7.32-7.43)
[2018-01-30 14:25] LABS: GRAN # 9.56 (1.4-6.5); GRAN % 91.4 % (50.0-68.0); HEMOGLOBIN 12.3 g/dL (12.0-16.0); LYMPH # 0.5 (1.2-3.4); LYMPH % 4.5 % (22.0-35.0); MEAN CORPUSCULAR HEMOGLOBIN 34.1 pg (25.0-35.0); MEAN CORPUSCULAR HGB CONC 35.9 g/dl (31.0-37.0); MEAN PLATELET VOLUME 10.2 fl (7.0-11.0); MONO # 0.4 (0.1-0.6); MONO % 4.1 % (1.0-6.0); PLATELET COUNT 182 10^3/uL (120.0-450.0); RBC 3.61 10^6/uL (3.5-6.1); RED CELL DISTRIBUTION WIDTH 13.3 % (11.5-14.5); WHITE BLOOD COUNT 10.5 10^3/ul (4.5-11.0)
[2018-01-30 14:31] LABS: ALB/GLOB RATIO 1.6 (1.1-1.8); ALBUMIN 4.2 g/dL (3.0-4.8); CALCIUM 8.8 mg/dL (8.4-10.5); INR 2.34 (0.93-1.08); PARTIAL THROMBOPLASTIN TIME 38.2 Seconds (25.1-36.5); PROTHROMBIN TIME 27.2 SECONDS (9.4-12.5)
[2018-01-30 14:37] LABS: TROPONIN I 0.08 ng/mL
[2018-01-30 14:44] LABS: ANISOCYTOSIS SLIGHT; LYMPHOCYTE 5 % (22.0-35.0); MONOCYTE 4 % (1.0-6.0); NEUTROPHIL 91 % (50.0-70.0); PLATELET ESTIMATE NORMAL (NORMAL)
--- NOTE | 2018-01-30 15:27 | CT ---
PROCEDURE: CT Lumbar Spine without contrast HISTORY: lower back pain, severe COMPARISON: Lumbar spine radiographs 07/03/[address] examination 06/07/2016. TECHNIQUE: Axial computed tomography images were obtained of the lumbar spine without the use of intravenous contrast. Coronal and sagittal reformatted images were created and reviewed. Radiation dose: Total exam DLP = 294.37 mGy-cm. This CT exam was performed using one or more of the following dose reduction techniques: Automated exposure control, adjustment of the mA and/or kV according to patient size, and/or use of iterative reconstruction technique. FINDINGS: VERTEBRAE: Normal lumbar curvature is reiterated. There is a subtle anterior wedge compression fracture of the L1 vertebral body in the interval with remaining lumbar vertebral bodies normal in height overall. No fragmentation or retropulsion is identified related to this fracture. Local soft tissues grossly appear unremarkable as imaged. MRI is more sensitive and can be performed for additional detailed evaluation if clinically warranted. No spondylolisthesis. No destructive bony changes are appreciated otherwise with the posterior elements reflecting multilevel facet arthropathy concentrated at the lower lumbar levels. Intervertebral disc heights are normal above L5 with marked disc height loss identified at L5-S1 including vacuum disc changes. Prevertebral paraspinal soft tissues reflect non aneurysmal atherosclerotic aortic changes. DISCS/SPINAL CANAL/NEURAL FORAMINA: L1-2: Unremarkable. L2-3: Limited disc bulging is appreciated combining with facet arthropathy encroaching the lateral recesses without generalized central canal stenosis resulting. Borderline bilateral degenerative neural foraminal stenosis noted. L3-4: Minimal generalized disc bulging combines with mild facet to moderate facet joint degenerative changes encroaching the lateral recesses bilaterally without significant central stenosis otherwise evident. Borderline bilateral degenerative foraminal stenosis evident. L4-5: Prominent disc osteophyte complex is appreciated circumferential at this level combined with facet joint arthropathy causing mild central canal stenosis and moderate bilateral neural foraminal stenosis. L5-S1: A stable generalized disc bulge is appreciate with marked disc height loss and osteophyte development resulting in [id number] bilateral neural foraminal stenoses and left greater than right lateral recess stenosis. Borderline generalized central canal stenosis. PARASPINAL SOFT TISSUES: Unremarkable. OTHER FINDINGS: None. IMPRESSION: 1. A minimal compression fracture of L1 is suspected, age indeterminate but occurring in the interval compared to 06/07/2016 CT Lumbar Spine. No spondylolisthesis or retropulsion of fracture fragment. 2. Multilevel degenerative disc disease without severe stenosis resulting. Facet arthropathy combines with degenerative disc bulging at multiple levels. A mild central stenosis identified at L4-5 with moderate bilateral neural foraminal stenoses with stable [id number] bilateral neural foraminal stenosis at L5-S1, also on a degenerative basis.
[2018-01-30] MEDS ORDERED: Oxycodone/Acetaminophen 5/325 mg Tab PO STA (15:54)
[2018-01-30] MEDS ORDERED: Lidocaine 5% Patch TD ONE (16:02)
--- NOTE | 2018-01-30 21:11 | CARD ---
APPROVED REPORT EKG Measurement Heart [id number] <Conclusion> Biventricular paced rhythm. Abnormal ECG
[2018-01-30] MEDS: Sodium Chloride 0.9% 1,000 ML IV SCH (21:45)
[2018-01-30] MEDS: Insulin Reg-LOW-Coverage SC SCH (22:30)
[2018-01-30] MEDS: Sucralfate 1 gm/10 ml Oral Susp UD PO SCH (22:34)
[2018-01-30] MEDS: Morphine 5 MG/ML SYRINGE IVP PRN (22:34)
[2018-01-31 01:10] VITALS: BMI 23.0
[2018-01-31] MEDS: Morphine 5 MG/ML SYRINGE IVP PRN ×2 (05:57→18:17)
[2018-01-31] MEDS ORDERED: Levothyroxine 50 MCG TAB PO SCH (06:00)
[2018-01-31 07:10] LABS: EOS % 0.2 % (1.5-5.0); GRAN # 5.37 (1.4-6.5); GRAN % 83.4 % (50.0-68.0); HEMOGLOBIN 10.7 g/dL (12.0-16.0); LYMPH # 0.7 (1.2-3.4); MEAN CELL VOLUME 96.3 fl (80.0-105.0); MEAN CORPUSCULAR HEMOGLOBIN 33.1 pg (25.0-35.0); MEAN CORPUSCULAR HGB CONC 34.4 g/dl (31.0-37.0); MEAN PLATELET VOLUME 10.2 fl (7.0-11.0); MONO # 0.4 (0.1-0.6); MONO % 5.4 % (1.0-6.0); RBC 3.23 10^6/uL (3.5-6.1); RED CELL DISTRIBUTION WIDTH 13.5 % (11.5-14.5); WHITE BLOOD COUNT 6.4 10^3/ul (4.5-11.0)
[2018-01-31 07:21] LABS: INR 2.47 (0.93-1.08); PROTHROMBIN TIME 28.9 SECONDS (9.4-12.5)
[2018-01-31 07:35] LABS: TROPONIN I 0.07 ng/mL
[2018-01-31 07:36] LABS: ALB/GLOB RATIO 1.3 (1.1-1.8); ALBUMIN 3.4 g/dL (3.0-4.8); CALCIUM 7.8 mg/dL (8.4-10.5)
[2018-01-31] MEDS ORDERED: Arformoterol 15 mcg/2 ml Inh Sol IH SCH (08:00)
--- NOTE | 2018-01-31 08:35 | HP ---
For Dr. Newman. CHIEF COMPLAINT: Intractable pain of her back. HISTORY OF PRESENT ILLNESS: The patient is a 77-year-old female admitted by the emergency room today after signing against medical advice yesterday, now complaining of severe back pain, which is intractable despite her use of narcotic analgesics to control it. Yesterday, the patient was recommended for admission after a troponin was noted to be elevated with the patient then insisting on discharge home, however, relenting today, coming back because of severe pain in her back. She was known to have a history of severe anemia with angiodysplasias in the past, has a hypercoagulable state on Coumadin with a significant cardiac history for which she sees Dr. Naranjo and Dr. Ferrari. With this, patient is otherwise now feeling minimally improved after narcotic analgesics were given for her pain. ALLERGIES: SULFA MEDICATIONS: Her medicines at this point after review of medications from [facility] include morphine sulfate, Ambien, metformin, Carafate, Percocet, Synthroid, omeprazole, digoxin, Imdur, Coumadin, Xanax, prednisone, Lasix, carvedilol, Amitiza, Zofran. She also was taking vitamin D with nebulizer treatment, which she at times is not compliant with. PAST MEDICAL HISTORY: As above with history of transfusions and IV iron given for severe angiodysplasia of bowel with severe anemia, now corrected recently with PPIs and Carafate. She also has a history of pacemaker, defibrillator, COPD, diabetes mellitus, peripheral neuropathy, status post mastectomy for breast cancer with compression fractures, on Coumadin for hypercoagulable state, history of MO, history of CVA. SOCIAL HISTORY: Patient is a non-ethanolic, nonsmoker, former [employer] [facility] [employer]3] employee, otherwise noncontributory. REVIEW OF SYSTEMS: Twelve-point review of systems is done, which is negative to questioning except for items mentioned in history of present illness as above. OBJECTIVE AND PHYSICAL EXAMINATION VITAL SIGNS: Temperature is 98.3, pulse 81, respirations 18, blood pressure 127/66, pulse ox of 95%. HEENT: Unremarkable. NECK: Supple. HEART: Paced, regular rate. LUNGS: Rare rhonchi. ABDOMEN: Soft, nontender. EXTREMITIES: No edema. SKIN: Warm and dry. NEUROLOGIC: Awake, alert with significant pain, with decreased range of motion to lower extremities for she cannot stand due to pain in her lower back. LABORATORY DATA: Patient's labs were done. White blood cell count of 10.5, hemoglobin 12.3, hematocrit of 34.3, platelet count of 182,000. INR of 2.34. Chem metabolic panel showed a BUN of 49, creatinine of 2.1 with a digoxin level of 3.9 for which dig will be held. It should be noted that the patient did have a B-natriuretic peptide done yesterday of 5250 with a troponin level that was elevated at 0.06 and 0.08 on repeat today with a T bili of 1.6 yesterday and 0.9 today. Patient had chest x-ray done yesterday, was read as no active disease, no significant interval change compared to prior examinations. Her EKG will be read today. A CT scan of her lumbar spine was read as a minimal compression fracture at L1, suspected age indeterminate, but compared to 06/07/2016. No spondylosis or retropulsed fracture fragment, multilevel degenerative disk disease without severe stenosis resulting. Facet arthropathy combined with degenerative disk bulging at multiple levels, mild central canal stenosis L4-L5 with degenerative changes. Her EKG from yesterday was read as biventricular paced rhythm, abnormal EKG. ASSESSMENT: The assessment for this patient is that of intractable pain of compression fracture, unrelieved by oral narcotic analgesics with intravenous analgesics needed to control her pain. Severe chronic obstructive pulmonary disease; anemia of chronic disease, now corrected; atherosclerotic cardiovascular disease with pacer; insomnia; anxiety; prosthetic valve metallic stent; hypercoagulable state; gait disturbance; rule out myocardial infarction. PLAN: After conversation with doctor is to admit to the remote telemetry floor. We will ask for consult with Dr. Naranjo, Cardiology; Dr. Schwartz, Neurology; Dr. Justice, Pulmonary. We will continue present medical regimen. We will do fingerstick blood sugars with sliding scale coverage with low-flow IV fluids for now. We will be rechecking her labs in the morning and monitoring clinically. We will also give her morphine sulfate 5 mg IV every 6 hours for her severe pain or Percocet 10/325 p.r.n. for her moderate pain with Tylenol for mild pain. With this, the patient's condition is guarded. She is complex patient with a comprehensive medically necessary and appropriate visit carried out in excess of 1 hour [id number] time including yesterday's visit when the patient signed against medical advice. Conversations were held with her pharmacy where her medicines were obtained, in addition to conversation with Dr. Walden, Niall Vega MD
[2018-01-31] MEDS: Insulin Reg-LOW-Coverage SC SCH ×2 (08:46→18:38)
[2018-01-31] MEDS ORDERED: Potassium Chloride 20 mEq ER Tab PO ONE (09:40)
[2018-01-31] MEDS: Oxycodone/Acetaminophen 10/325 mg Tab PO PRN (10:24)
[2018-01-31] MEDS: Sucralfate 1 gm/10 ml Oral Susp UD PO SCH ×2 (11:07→18:18)
[2018-01-31] MEDS: POLYETHYLENE GLYCOL 3350 17 GM/Dose PACKET PO SCH (11:07)
[2018-01-31] MEDS: Pantoprazole 40 mg EC Tab PO SCH (11:08)
--- NOTE | 2018-01-31 12:14 | RAD ---
HISTORY: constipation COMPARISON: No prior. FINDINGS: BOWEL: Normal. No obstruction. No free air. BONES: Normal. OTHER FINDINGS: None. IMPRESSION: No significant or acute findings to account for/ related to the clinical presentation.
--- NOTE | 2018-01-31 12:17 | CP.PCM.PN ---
Subjective - Date & Time of Evaluation Date of Evaluation: 01/31/18 Time of Evaluation: 08:00 - Subjective Subjective: PGY-[address] Newman's service Patient seen and examined at bedside. No acute distress. Patient states that she is in alot of pain and can not moev without shooting pain. She also states that she has not had bowel movement in 5 days and is uncertain of the last time she urinated. Patient states that she is forgetful. She states that she has not been able to urinate or pass stool, despite the feeling of having to go. she states that her abd is somewhat tender. She denies pain anywhere else. She denies fever, chills, chest pain, sob, abd pain, n/v. Objective - Vital Signs/Intake and Output Vital Signs (last 24 hours): Temp Pulse Resp BP Pulse Ox 97.8 F 79 20 130/70 96 01/31/18 06:00 01/31/18 06:00 01/31/18 06:00 01/31/18 11:07 01/31/18 06:00 Intake and Output: 01/31/18 01/31/18 06:59 18:59 Intake Total 240 Balance 240 - Medications Medications: Current Medications Acetaminophen (Tylenol 325mg Tab) 650 mg PO Q4 PRN PRN Reason: Fever >100.4 F Alprazolam (Xanax) 0.25 mg PO Q8H PRN; Protocol PRN Reason: Anxiety Stop: 02/06/18 19:57 Arformoterol Tartrate (Brovana) 15 mcg IH [id number] [facility] Carvedilol (Coreg) 3.125 mg PO BID [facility] Last Admin: 01/31/18 11:07 Dose: 3.125 mg Digoxin (Digoxin) 0.125 mg PO 1400 [facility] Docusate Sodium (Colace) 100 mg PO DAILY [facility] Last Admin: 01/31/18 11:07 Dose: 100 mg Furosemide (Lasix) 40 mg PO DAILY [facility] Last Admin: 01/31/18 11:07 Dose: 40 mg Sodium Chloride (Sodium Chloride 0.9%) 1,000 mls @ 50 mls/hr IV .Q20H [facility] Last Admin: 01/30/18 21:45 Dose: 50 mls/hr Insulin Human Regular (Humulin R Low) 0 units SC ACHS [facility] PRN Reason: Protocol Last Admin: 01/31/18 08:46 Dose: Not Given Isosorbide Mononitrate (Imdur) 60 mg PO DAILY [facility] Last Admin: 01/31/18 11:07 Dose: 60 mg Levothyroxine Sodium (Synthroid) 125 mcg PO 0600 [facility] Morphine Sulfate (Morphine) 5 mg IVP Q6H PRN PRN Reason: Pain, severe (8-10) Last Admin: 01/31/18 05:57 Dose: 5 mg Oxycodone/Acetaminophen (Percocet 10/325 Mg Tab) 1 tab PO Q6H PRN PRN Reason: Pain, moderate (4-7) Last Admin: 01/31/18 10:24 Dose: 1 tab Oxycodone/Acetaminophen (Percocet 5/325 Mg Tab) 1 tab PO Q4H PRN PRN Reason: Pain, moderate (4-7) Stop: 02/03/18 09:53 Pantoprazole Sodium (Protonix Ec Tab) 40 mg PO DAILY [facility] Last Admin: 01/31/18 11:08 Dose: 40 mg Polyethylene Glycol (Miralax) 17 gm PO DAILY [facility] Last Admin: 01/31/18 11:07 Dose: 17 gm Prednisone (Prednisone Tab) 10 mg PO DAILY [facility] Last Admin: 01/31/18 11:08 Dose: 10 mg Sucralfate (Carafate Oral Susp) 1 gm PO BID [facility] Last Admin: 01/31/18 11:07 Dose: 1 gm Warfarin Sodium (Coumadin) 4 mg PO 1800 [facility] PRN Reason: Protocol Zolpidem Tartrate (Ambien) 5 mg PO HS PRN; Protocol PRN Reason: Insomnia Last Admin: 01/31/18 00:23 Dose: 5 mg - Labs Labs: 01/31/18 05:50 01/31/18 05:50 PT 28.9 SECONDS (9.4-12.5) H 01/31/18 05:50 INR 2.47 (0.93-1.08) H 01/31/18 05:50 APTT 38.2 Seconds (25.1-36.5) H 01/30/18 14:07 - Constitutional Appears: Other (uncomfortable) - Head Exam Head Exam: ATRAUMATIC, NORMOCEPHALIC - Eye Exam Eye Exam: Normal appearance Pupil Exam: NORMAL ACCOMODATION - ENT Exam ENT Exam: Mucous Membranes Moist - Respiratory Exam Respiratory Exam: Clear to Ausculation Bilateral, NORMAL BREATHING PATTERN. absent: Rhonchi, Wheezes, Respiratory Distress - Cardiovascular Exam Cardiovascular Exam: REGULAR RHYTHM, +S1, +S2. absent: Tachycardia, Murmur - GI/Abdominal Exam GI & Abdominal Exam: Distended, Tenderness, Normal Bowel Sounds. absent: Firm - Extremities Exam Extremities Exam: Normal Inspection. absent: Pedal Edema, Tenderness - Neurological Exam Neurological Exam: Alert, Awake, Oriented x3 - Skin Skin Exam: Dry, Intact, Normal Color, Warm Assessment and Plan - Assessment and Plan (Free Text) Assessment: 77 yo female with PMH of CHF, CPOD, diabetes, a. fib, iron deficiency anemia, pacemaker, defibrillator, CAD, seizure , hypothyroidism presented with intractable back pain with compression fracture unrelieved by oral narcotic compression fracture of L1 urinary retention copd CHF CPOD diabetes A. fib iron deficiency anemia Plan: CT lumbar spine showed minimal compression fracture of L1, multilevel degenerative disc disease without severe stenosis, mild central stenosis at L4- 5 can not get MRI due to pacemaker bone scan pending IR consulted Morphine 5mg q6h, percocet 10/325 will add lidoderm patch 2 side by side to lumbar back will consult pain management Neurology consulted ISS with finger stick achs Cardiology consulted, h/o pacemaker, cad, chf Echo pending urinary retention, bladder scan showed more then 1 l Fritz catheter inserted elevated creatinine on admission, improved nephrology consult Pulmonary consulted PT evaluation case reviewed and discussed with Dr. Newman
[2018-01-31] MEDS ORDERED: Digoxin 125 mcg (0.125 mg) Tab PO SCH (14:00)
--- NOTE | 2018-01-31 17:52 | CARD ---
APPROVED REPORT EXAM: Two-dimensional and M-mode echocardiogram with Doppler and color Doppler. INDICATION 2D DIMENSIONS Left Atrium (2D)4.4 (1.6-4.0cm)IVSd1.4 (0.7-1.1cm) LVDd4.8 (3.9-5.9cm)LVOT Diameter1.9 (1.8-2.4cm) PWd0.9 (0.7-1.1cm)LVDs3.7 (2.5-4.0cm) FS (%) 23.5 %LVEF (%)46.9 (>50%) M-Mode DIMENSIONS Aortic Root2.50 (2.2-3.7cm)Aortic Cusp Exc.1.10 (1.5-2.0cm) Aortic Valve AoV Peak Qfpwctwi344.0cm/sAoV VTI34.5cmAO Peak GR.20mmHg LVOT Peak Cdsujaor45.7cm/sLVOT VTI10.60cmAO Mean GR.8mmHg LIGIA (VMAX)0.96bd9RWA (VTI)0.26vb5BM P 1/2 Ffwe699or Mitral Valve MV E Bbfoaaow722.0cm/sMV E Peak Gr.223mmHg TDI Lateral E' Peak V8.19cm/sMedial E' Peak V9.55cm/sE/Lateral E'14.4 E/Medial E'12.4 Tricuspid Valve TR Peak Vdqmzflk740hl/sRAP KPCCELVT24cqDnDP Peak Gr.32mmHg [id number] LEFT VENTRICLE The left ventricle is normal size. There is mild concentric left ventricular hypertrophy. The systolic function is mildly impaired.EF-40-45% M<ultiple wall motion abnormalities C/w CAD Septal motion consistent with conduction abnormality. There is severe hypokinesis in the basal anterolateral wall. A fib, V -paced rhythm No left ventricle thrombus noted on this study. There is no ventricular septal defect visualized. There is no left ventricular aneurysm. There is no mass noted in the left ventricle. RIGHT VENTRICLE The right ventricle is normal size. There is normal right ventricular wall thickness. Systolic function is borderline reduced. There is a pacemaker lead in the right ventricle. ATRIA The left atrium is moderately dilated. The right atrium is borderline dilated. There is a catheter/pacemaker lead seen in the right atrium. The interatrial septum is intact with no evidence for an atrial septal defect. AORTIC VALVE The aortic valve is calcified and displays decreased opening. There is mild aortic regurgitation. There is moderate valvular aortic stenosis. There is no aortic valvular vegetation. MITRAL VALVE Mitral regurgitation is trace. There is a mechanical mitral valve., normal functioning TRICUSPID VALVE The tricuspid valve leaflets are thickened or calcified, but open well. There is mild to moderate tricuspid regurgitation.RVSP-42 mm of hg. There is mild pulmonary hypertension. There is no tricuspid valve stenosis. There is no tricuspid valve prolapse or vegetation. PULMONIC VALVE The pulmonary valve is normal in structure. There is trace pulmonic valvular regurgitation. There is no pulmonic valvular stenosis. GREAT VESSELS The aortic root is normal in size. The ascending aorta is normal in size. The pulmonary artery is normal. The IVC is normal in size and collapses >50% with inspiration. PERICARDIAL EFFUSION There is no pleural effusion. There is no pericardial effusion. <Conclusion> The left ventricle is normal size. There is mild concentric left ventricular hypertrophy. The systolic function is mildly impaired.EF-40-45% There is mild aortic regurgitation. There is moderate valvular aortic stenosis. There is a mechanical mitral valve., normal functioning Mitral regurgitation is trace. There is mild to moderate tricuspid regurgitation.RVSP-42 mm of hg. There is mild pulmonary hypertension. The IVC is normal in size and collapses >50% with inspiration. There is no pericardial effusion. No vegetation or thrombus noted. AICD lead in Ra/RV noted.
--- NOTE | 2018-01-31 21:16 | CON ---
DATE: 01/31/2018 CARDIOLOGY CONSULTATION REASON FOR CONSULTATION AND FOLLOWUP: Intractable back pain, status post fall; coronary artery disease, CABG, status post AICD. BRIEF CLINICAL HISTORY: This is a 77-year-old female with past medical history significant for coronary artery disease, status post CABG, status post AICD, history of angiodysplasias, multiple GI bleed, on IV blood product infusion, who fell down over a period of one week twice and now admitted with intractable back pain. Denies any chest pain. Denies shortness of breath. Denies any palpitations. PAST MEDICAL HISTORY: Significant for coronary artery disease; history of myocardial infarction; history of chronic atrial fibrillation; history of cardiomyopathy, ischemic; status post AICD; status post mechanical valve repair; multiple packed RBC transfusion; infusion of blood and blood products, iron at Hem/Onc clinic; history of angiodysplasia of colon; history of multiple GI bleed; hypertension; hyperlipidemia; history of CVA; history of TIA; history of diabetes; history of peripheral neuropathy; history of mastectomy and breast CA. PREVIOUS CARDIAC WORKUP: As follows: History of atrial fibrillation, history of multiple failed VIMAL cardioversion. Most recent echo 03/24/2015, ejection fraction 25% to 30%, trace aortic regurgitation, oros-[id number] aortic stenosis, trace mitral regurgitation, status post MVR mechanical, moderate tricuspid regurgitation, RV systolic pressure of 40, pacemaker/AICD lead noted in RA and RV. Last stress test on 04/25/2015 shows multiple fixed defect, no reversible ischemia, ejection fraction of 25%; history of chronic atrial fibrillation. EKG shows V-paced rhythm. Patient's repeat stress test dated 03/13/2017, that showed abnormal myocardial perfusion study, fixed defect, no reversible ischemia, severe LV dysfunction, ejection fraction 20%. CURRENT MEDICATIONS: Patient at home was taking tramadol, amlodipine, Zolpidem, Ambien 4 mg, Coumadin, Carafate, simvastatin, potassium chloride, oxycodone, omeprazole, Naprosyn, Singulair, metformin, meclizine, lisinopril, levothyroxine, isosorbide , Lasix, vitamin D, Coreg. REVIEW OF SYSTEMS: As per HPI. PHYSICAL EXAMINATION: VITAL SIGNS: Temperature afebrile, heart rate 79, blood pressure 189/84. HEENT: PERRLA. Extraocular muscles intact. NECK: Supple. No carotid bruit or thyromegaly. CHEST: Clear to auscultation. HEART: S1 and S2, regular. ABDOMEN: Soft. EXTREMITIES: Clubbing and cyanosis negative. LABORATORY DATA: Blood workup as follows: WBC 6.4, hemoglobin 10, hematocrit 31.1, platelet count 138. Chemistry shows sodium 137, potassium 3.6, chloride 91, carbon dioxide 31, BUN 40, creatinine 1.4. TSH 72.3. IMPRESSION: Acute kidney injury, yesterday patient came in with creatinine of 2.1, today is 1.4, INR therapeutic; diabetes; hypertension; hyperlipidemia; coronary artery disease, status post coronary artery bypass graft, status post mechanical valve repair; angiodysplasia; multiple blood product transfusion; history of multiple transfusions; history of multiple gastrointestinal bleed; angiodysplasia of the colon; cardiomyopathy, ischemic; last stress test in 2016, essentially fixed defect, no reversible ischemia; status post mitral valve repair for mitral regurgitation, acute kidney injury, severe hypothyroidism. RECOMMENDATIONS: We will get lipid profile. Continue Coumadin. Continue Coreg. Continue gentle hydration. Patient with 50 mcg of Levoxyl. We will increase to 125 because TSH is very high. Borderline troponin, secondary to acute kidney injury. No evidence of ischemia. We will get echo to assess LV function and we will repeat TSH in three to four days. We will get lipid profile and hemoglobin A1c. We will follow with you. We will supplement potassium as well and will discontinue levothyroxine 50 and increase to 125. Thank you, Dr. Vega, for providing us the opportunity in taking care of the patient, Franchesca Ohara. Cyril Naranjo MD
--- NOTE | 2018-02-01 00:26 | CON ---
DATE: 01/31/2018 PULMONARY CONSULT REFERRING PHYSICIAN: Niall Vega MD. REASON FOR CONSULT: Chronic obstructive lung disease. HISTORY OF PRESENT ILLNESS: This is a 77-year-old female with multiple medical issues including chronic obstructive lung disease; severe anemia; history of angiodysplasia, on anticoagulation; cardiac arrhythmia requiring pacemaker; chronic obstructive lung disease; diabetes; peripheral neuropathy; history of breast cancer requiring mastectomy; multiple compression fractures; history of stroke; PR. Comes in to emergency room with intractable pain while on opioids, short of breath with exertion. No nausea. No vomiting. No diarrhea. No leg swelling. PAST MEDICAL HISTORY: As per history present illness. ALLERGY: SULFA. SOCIAL HISTORY: She is smoker. Denies any alcohol use. FAMILY HISTORY: No significant cardiopulmonary disease reported. MEDICATIONS: She is on Ambien 5 mg at bedtime p.r.n., Brovana inhaled twice a day, Carafate 1 g twice a day, Colace 100 mg daily, Coreg 3.125 mg twice a day, Coumadin 4 mg will be given today, digoxin 0.125 mg daily, insulin coverage, Imdur 60 mg daily, Lasix 40 mg daily, lidocaine patch to affected area daily, MiraLax 17 g daily morphine 5 mg IV every 6 hours p.r.n., Percocet 10/325 one tab every 6 hours p.r.n., prednisone 10 mg daily, Protonix 40 mg daily, IV fluid normal saline 50 mL/hour, Synthroid 125 mcg daily, Tylenol p.r.n., Xanax 0.25 mg every 8 hours p.r.n. REVIEW OF SYSTEMS: No headache. No rhinitis. Mild cough and shortness of breath. No chest pain. No nausea. No vomiting. No abdominal pain. Has a back pain. No dysuria. No leg swelling. PHYSICAL EXAMINATION: GENERAL: Lying in the bed, no acute distress. VITAL SIGNS: Temp is 98, heart rate is 80, respiratory rate is 20, blood pressure 113/58, pulse ox 94% on room air. HEENT: Moist mucous membrane. Crowded airway. NECK: Supple. No JVD. LUNGS: Have a few scattered rhonchi. HEART: S1 and S2. ABDOMEN: Soft, nontender. No organomegaly. EXTREMITIES: There is no edema. NEUROLOGICAL: Awake, alert. Follows simple command, but forgetful. LABORATORY DATA: Shows hemoglobin 10.7, hematocrit 31.1, WBC 6.4, platelet count is 138. INR is 2.47. VBG on admission was pH 7.43, pCO2 of 48, O2 of 66. Sodium 137, potassium 3.6, chloride 98, bicarbonate 31, BUN 40, creatinine 1.4, glucose is 88, calcium is 7.8, AST 22, ALT 29, alk phos is 117, albumin is 3.4. TSH is 72. Digoxin level 3.1. IMPRESSION AND PLAN: Chronic obstructive lung disease; history of obstructive sleep apnea syndrome in the past, but noncompliant with the continuous positive airway pressure; cardiomyopathy; diabetes; atrial fibrillation; anemia; cardiac arrhythmia requiring pacemaker; seizure disorder; hypothyroid; history of stroke in the remote past; multiple compression fractures; steroids dependent; opioids dependent. Case discussed with Dr. Newman. Pulmonary point of view, she is doing well. Continue steroids, inhaled bronchodilator. Keep head at 45 degrees. Gastric prophylaxis. On anticoagulation. Follow up H and H. May benefit from therapy. Thank you and we will follow with you. Cyril Justice MD
[2018-02-01] MEDS: Levothyroxine 125 MCG TAB PO SCH (05:32)
[2018-02-01 06:54] LABS: EOS % 0.2 % (1.5-5.0); GRAN # 4.99 (1.4-6.5); GRAN % 89.6 % (50.0-68.0); HEMOGLOBIN 11.5 g/dL (12.0-16.0); LYMPH # 0.3 (1.2-3.4); LYMPH % 6.1 % (22.0-35.0); MEAN CELL VOLUME 97.7 fl (80.0-105.0); MEAN CORPUSCULAR HEMOGLOBIN 33.4 pg (25.0-35.0); MEAN CORPUSCULAR HGB CONC 34.2 g/dl (31.0-37.0); MEAN PLATELET VOLUME 10.1 fl (7.0-11.0); MONO # 0.2 (0.1-0.6); MONO % 4.1 % (1.0-6.0); RBC 3.44 10^6/uL (3.5-6.1); RED CELL DISTRIBUTION WIDTH 13.8 % (11.5-14.5); WHITE BLOOD COUNT 5.6 10^3/ul (4.5-11.0)
[2018-02-01 06:55] LABS: ALB/GLOB RATIO 1.4 (1.1-1.8); ALBUMIN 3.8 g/dL (3.0-4.8); CALCIUM 8.6 mg/dL (8.4-10.5)
[2018-02-01 07:12] LABS: INR 2.32 (0.93-1.08); PROTHROMBIN TIME 27.1 SECONDS (9.4-12.5)
[2018-02-01] MEDS: Pantoprazole 40 mg EC Tab PO SCH (09:27)
[2018-02-01] MEDS: Lidocaine 5% Patch TD SCH (09:27)
[2018-02-01] MEDS: POLYETHYLENE GLYCOL 3350 17 GM/Dose PACKET PO SCH (09:27)
[2018-02-01] MEDS: Insulin Reg-LOW-Coverage SC SCH ×4 (09:28→21:54)
[2018-02-01] MEDS: Sucralfate 1 gm/10 ml Oral Susp UD PO SCH ×2 (09:39→18:13)
[2018-02-01] MEDS: Sodium Chloride 0.9% 1,000 ML IV SCH (13:10)
--- NOTE | 2018-02-01 15:26 | PN ---
DATE: 02/01/2018 PULMONARY PROGRESS NOTE REFERRING PHYSICIAN: Niall Vega MD SUBJECTIVE: She is lying in the bed, head at 45 degrees. Night was unremarkable, having still low back pain, also have requiring Fritz catheter. No leg pain or leg swelling. OBJECTIVE: GENERAL: In no acute distress. VITAL SIGNS: Temperature is 98, heart rate is 80, respiratory rate is 20, blood pressure 110/60, pulse ox 94% on room air. HEENT: Moist mucous membrane. Crowded airway. NECK: Supple. No JVD. LUNGS: Fair airflow with rhonchi. HEART: S1 and S2. ABDOMEN: Soft, nontender. No organomegaly. EXTREMITIES: No edema. NEUROLOGIC: Awake and alert, follows simple command. MEDICATIONS: She is on Ambien 5 mg at bedtime p.r.n., Brovana inhaled twice a day, Carafate 1 g twice a day, Colace 100 mg daily, Coreg 3.125 mg twice a day, Coumadin 4 mg will be given tonight, digoxin 0.125 mg daily, Imdur 60 mg daily, Lasix 40 mg daily, lidocaine patch daily, MiraLax 17 g daily, morphine 5 mg IV every 6 hours p.r.n., Percocet one tablet every 6 hours p.r.n., prednisone 10 mg daily, Protonix 40 mg daily, IV flow normal saline 50 mL per hour, Synthroid 125 mcg daily, Tylenol p.r.n., Xanax 0.25 mg every 8 hours p.r.n. LABORATORY DATA: Shows hemoglobin 11.5, hematocrit 33.6, WBC 5.6, platelets 157. INR 2.32. Sodium 138, potassium 2.9, chloride 100, bicarbonate 29. BUN 28, creatinine 1.1. Glucose is 108. Calcium is 8.6, phosphorus 2.7, magnesium 1.6. AST 23, ALT 29, alk phos is 125, albumin is 3.8. IMPRESSION AND PLAN: Chronic obstructive lung disease, obstructive sleep apnea syndrome, noncompliant with continuous positive airway pressure, cardiomyopathy, diabetes, atrial fibrillation, anemia, cardiac arrhythmia requiring pacemaker, seizure disorder, hypothyroid, history of stroke in the past, multiple compression fractures, steroids dependent, opioids dependent. Pulmonary point of view, doing okay. Keep head at 45 degrees. Sleep apnea precautions, sedation, continue anticoagulation. Gastric prophylaxis. Fall precaution. Thank you and we will follow with you. Cyril Justice MD
--- NOTE | 2018-02-01 20:58 | PN ---
DATE: ONCOLOGY PROGRESS NOTE LOCATION: Patient is in room 370, bed 2. PROBLEM: This is a 77-year-old female who was admitted to the hospital with multiple medical issues with worsening back pain; chronic obstructive lung disease; severe anemia; history of angiodysplasia; on anticoagulation for mechanical prosthetic valve; cardiac arrhythmia, requiring pacemaker; chronic diabetes; peripheral neuropathy; history of massive stroke with left-sided weakness; history of breast cancer, requiring mastectomy; multiple compression fractures of lower back associated with spinal stenosis; history of stroke; history of [place], came into the ER complaining of significant severe back pain while on opioids; short of breath with minimal exertion. No nausea. No vomiting. No diarrhea. No leg swelling. SUBJECTIVE: Patient feels better. She is sitting out of bed in the chair with a combination of medicines she is getting including the lidocaine patch. Patient did not even get out of bed or could not even have the head end of bed raised yesterday because of severe pain. With the combination of the Lidoderm patches and the IV narcotics, patient feels a whole lot improved today. OBJECTIVE: GENERAL: Patient is awake, alert, and oriented. She tells me her vision is not the greatest and she would like to have her eyes checked out. I told her we will have her do that once she gets discharged after this acute situation that she can be seen by an lvn. VITAL SIGNS: Stable. T-max is 98.4, heart rate is 80, respirations 20, blood pressure is 120/58, pulse ox is 98% on room air. HEENT: Head is normocephalic, atraumatic. Conjunctivae pale. Sclerae are anicteric. Pupils are equally reactive to light and accommodation. Examination of the oropharynx reveals no oropharyngeal lesion. Tongue is moist. No ulcerations are noted. NECK: Supple. There is no adenopathy. Jugular venous distention noted. LUNGS: Relatively clear to percussion and auscultation with prolonged expiratory phase. Scattered wheezes are heard. HEART: Reveals S1 and S2 to be normal. Patient has a pacemaker in the left upper chest wall. ABDOMEN: Soft, nontender, scaphoid. Liver and spleen are not palpable. EXTREMITIES: Reveal no cyanosis, clubbing, or edema. SPINE: Reveals significant improvement of the pain. Patient has a Lidoderm patch through side by side for the lumbosacral area. NEUROLOGIC: Patient is awake, alert, and oriented. Responsive to time, place, and person. Patient is forgetful, but overall significantly improved. LABORATORY DATA: Shows hemoglobin of 10, hematocrit 31, white count 6.4, platelet count is 138. INR is 2.43. Sodium is 137, K is 3.6, chloride is 98, bicarbonate 31. BUN is 40, creatinine 1.4, glucose is 88, calcium is 7.8. AST 12, ALT 19, alk phos is 107, albumin is 3.4. TSH is 72, which is being corrected . Digoxin level is 3.1. Patient's digoxin level was high and the medication is on hold. TSH was high; patient's Synthroid levels have been increased. Patient is on bronchial toilet. ASSESSMENT NOTES AND PLAN: Patient has chronic obstructive lung disease; sleep apnea at home, noncompliant; cardiomyopathy; diabetes; atrial fibrillation; prosthetic valve; anemia. Pacemaker; seizure disorder; hypothyroid; history of stroke; multiple compression fractures with spinal stenosis. Opioid dependent, steroid dependent. Continue inhaled bronchodilators. Synthroid has been increased by Cardiology. We will continue to monitor her pain medication intake and follow the patient's hemoglobin and hematocrit. Once the patient's condition improves, we will sign the patient for transfer to TCU for further physical rehab prior to discharge. talking to the patient. Patient had requested a consultation with both Neurology and pain specialist, which have been obtained while continuing our treatment plan. Labs for the a.m. have been requested. PT/INR will be monitored on a careful basis. Patient's medications also include Ambien, Brovana, Carafate, Colace, Coreg, warfarin 4 mg daily, digoxin is on hold, insulin coverage, Imdur, Lasix. We will try to keep her on minimum medication for pain as needed at this point in time not to increase. If necessary, we will give her morphine or Percocet as needed. Routine post-exam instructions have been given to the patient. Alexandra Newman MD
[2018-02-01 21:35] LABS: PH,URINE 5.5 (4.7-8.0); URINE BILIRUBIN NEGATIVE (NEGATIVE); URINE BLOOD MODERATE (NEGATIVE); URINE GLUCOSE (UA) NEGATIVE (NEGATIVE); URINE LEUKOCYTE ESTERASE SMALL Leu/uL (NEGATIVE); URINE PROTEIN NEGATIVE mg/dL (<30 mg/dL); URINE UROBILINOGEN 0.2 E.U./dL (<1 E.U./dL)
[2018-02-01 21:38] LABS: URINE APPEARANCE CLEAR (CLEAR); URINE COLOR YELLOW (YELLOW)
[2018-02-01 21:46] LABS: URINE BACTERIA MOD (NEG)
--- NOTE | 2018-02-02 00:57 | CON ---
DATE: 02/01/2018 REASON FOR CONSULTATION: Acute kidney injury, low back pain, dehydration. HISTORY OF PRESENT ILLNESS: This 77-year lady, previously unknown to me, was admitted on 01/30 with complaints of severe low back pain. Patient reports fall at home. Patient gives a history of severe anemia, angiodysplasia, hypercoagulable state. In the emergency room, she was found to have an elevated creatinine of 2.1. Hence consultation is requested. Currently, patient feels better. She reports that her back is feeling better. She denies any chest tightness. She denies any palpitations. She denies any nausea, vomiting, or diarrhea. PAST MEDICAL AND SURGICAL HISTORY: Severe anemia, angiodysplasias of the bowel, NIDDM, COPD, AICD, mastectomy for breast cancer, compression fractures, chronic back pain, hypercoagulable state, CAD, CVA. FAMILY HISTORY: Noncontributory. SOCIAL HISTORY: No smoking, no alcohol use, no IV drug abuse. ALLERGIES: SULFA. CURRENT MEDICATIONS: Ambien, Brovana, Carafate, Colace, Coumadin 4 mg, digoxin, insulin, Lasix 40 p. o. daily, MiraLax, morphine, Percocet, prednisone, Protonix, normal saline at 50, Synthroid, Tylenol, Xanax. REVIEW OF SYSTEMS: All systems are reviewed, pertinent positives as mentioned in the history of presenting illness, rest unremarkable. PHYSICAL EXAMINATION: GENERAL: Elderly lady sitting in bed, in no acute distress at this time. VITAL SIGNS: Blood pressure 110/60, heart rate 80, respiratory rate 20, temperature 98.7. HEENT: Normocephalic, atraumatic. NECK: Supple, no JVD. LUNGS: Bilateral equal air entry, bilateral equal expansion, no rales. CARDIAC: S1, S2, regular rate and rhythm, no murmur, no rubs. ABDOMEN: Soft, nondistended, nontender, bowel sounds present. EXTREMITIES: No lower extremity edema. INTAKE AND OUTPUT: Not charted. LABORATORY DATA: WBC 5.6, hemoglobin 11.5, hematocrit 34, platelets 157; INR 2.3. Sodium 138, potassium 3.9, chloride 100, CO2 of 29, BUN 28, creatinine 1.1, glucose 108, calcium 8.6, phosphorus 2.7, magnesium 1.6, troponin 0.08 at the time of admission. Albumin 3.8, triglycerides 390, cholesterol 322, LDL 184. CT of the lumbar spine, minimal compression fracture of L1, multilevel DJD, central stenosis identified between L4-L5, moderate bilateral neuroforaminal stenosis. ASSESSMENT: 1. Acute kidney injury superimposed on chronic kidney disease stage II, resolved/resolving acute kidney injury. Creatinine has come down from 2.1 to 1.1. 2. Prerenal azotemia suspect in the setting of severe chronic back pain, fall. 3. Hypertension. 4. History of coronary artery disease. 5. History of breast cancer. 6. History of anemia with angiodysplasias. 7. Severe hyperlipidemia. 8. History of hypercoagulable state. PLAN: 1. Okay to discontinue IV fluids, patient appears euvolemic now, creatinine has come down from 2.1 to 1.1. 2. Okay to restart lisinopril in a.m. 3. Avoid nephrotoxins. 4. Continue lipid lowering therapy. Thank you for the courtesy of this consultation. We will follow this patient closely with you. Litzy Ocasio MD
[2018-02-02] MEDS: Oxycodone/Acetaminophen 10/325 mg Tab PO PRN (02:14)
[2018-02-02] MEDS: Levothyroxine 125 MCG TAB PO SCH (05:28)
[2018-02-02 06:49] LABS: ALB/GLOB RATIO 1.4 (1.1-1.8); ALBUMIN 3.7 g/dL (3.0-4.8)
[2018-02-02 06:55] LABS: INR 3.13 (0.93-1.08); PROTHROMBIN TIME 36.9 SECONDS (9.4-12.5)
[2018-02-02 07:01] LABS: EOS # 0.1 (0.0-0.7); EOS % 1.2 % (1.5-5.0); GRAN # 3.78 (1.4-6.5); GRAN % 72.6 % (50.0-68.0); LYMPH # 0.9 (1.2-3.4); LYMPH % 17.9 % (22.0-35.0); MEAN CELL VOLUME 95.8 fl (80.0-105.0); MEAN CORPUSCULAR HEMOGLOBIN 33.3 pg (25.0-35.0); MEAN CORPUSCULAR HGB CONC 34.8 g/dl (31.0-37.0); MEAN PLATELET VOLUME 9.9 fl (7.0-11.0); MONO # 0.4 (0.1-0.6); MONO % 8.3 % (1.0-6.0); RBC 3.3 10^6/uL (3.5-6.1); RED CELL DISTRIBUTION WIDTH 13.4 % (11.5-14.5); WHITE BLOOD COUNT 5.2 10^3/ul (4.5-11.0)
[2018-02-02] MEDS: Insulin Reg-LOW-Coverage SC SCH ×4 (07:55→22:08)
[2018-02-02] MEDS: Sucralfate 1 gm/10 ml Oral Susp UD PO SCH ×2 (09:22→17:54)
[2018-02-02] MEDS: Pantoprazole 40 mg EC Tab PO SCH (09:40)
[2018-02-02] MEDS: POLYETHYLENE GLYCOL 3350 17 GM/Dose PACKET PO SCH (09:44)
[2018-02-02] MEDS: Lidocaine 5% Patch TD SCH (09:45)
[2018-02-02] MEDS ORDERED: Sodium Chloride 0.9% 1,000 ML IV STA (12:33)
[2018-02-02] MEDS: Oxycodone/Acetaminophen 5/325 mg Tab PO PRN ×2 (13:02→22:10)
--- NOTE | 2018-02-02 16:14 | PN ---
DATE: 02/02/2018 SUBJECTIVE: The patient is seen lying in bed. Family member is at bedside. The patient has a poor appetite. She did not eat breakfast. PHYSICAL EXAMINATION: GENERAL: Elderly lady, lying in bed. VITAL SIGNS: Blood pressure 121/80, heart rate 80, respiratory rate 18, temperature 98. HEENT: Normocephalic, atraumatic. NECK: Supple, no JVD. LUNGS: Bilateral equal air entry, bilateral equal expansion, no rales. CARDIAC: S1 and S2, regular rate and rhythm, no murmur, no rub. ABDOMEN: Soft, nondistended, nontender, bowel sounds present. EXTREMITIES: No lower extremity edema. INTAKE AND OUTPUT: Not charted. LABORATORY DATA: WBC 5, hemoglobin 11, hematocrit 32, platelets 138. Sodium 136, potassium 4, chloride 96, CO2 of 33, BUN 32, creatinine 1.4, glucose 92, calcium 9, albumin 3.7. Urinalysis: Yellow, clear, pH 5.5, specific gravity 1.020, protein negative, glucose negative, ketones negative, blood moderate, leukocyte esterase small. CURRENT MEDICATIONS: Ambien, Brovana, Carafate, Colace, Coreg 3.125 b.i.d., Coumadin, digoxin, insulin, Imdur, Lasix, Lidoderm, MiraLax, morphine, Protonix, normal saline started this afternoon, Synthroid, Tylenol, Xanax, Zestril. ASSESSMENT: 1. Acute kidney injury, prerenal azotemia, the patient has a poor p.o. intake. 2. History of chronic obstructive pulmonary disease. 3. History of chronic back pain. 4. Remote history of breast cancer. 5. Compression fractures. PLAN: 1. Push p.o. intake. 2. Agree with interim IV fluids. 3. Perhaps hold Lasix. 4. Okay to continue lisinopril. 5. Avoid nephrotoxins. Litzy Ocasio MD
--- NOTE | 2018-02-02 22:02 | PN ---
DATE: 02/02/2018 PULMONARY PROGRESS NOTE REFERRING PHYSICIAN: Niall Vega MD SUBJECTIVE: She is lying in the bed, head at 45 degrees. Refused to use CPAP and BiPAP. Tired and sleepy. No nausea, no vomiting or diarrhea. No leg pain or leg swelling. OBJECTIVE: GENERAL: In no acute distress. VITAL SIGNS: Temperature is 98, heart rate is 66, respiratory rate is 20, blood pressure 98/52. HEENT: Moist mucous membrane. No ulcer or thrush. NECK: Supple. No JVD. LUNGS: Fair airflow with rhonchi. HEART: S1 and S2. ABDOMEN: Soft, nontender. No organomegaly. EXTREMITIES: No edema. NEUROLOGIC: Awake, alert, and follows simple command. MEDICATIONS: She is on Ambien 5 mg at bedtime p.r.n., Brovana inhaled twice a day, Carafate 1 g twice a day, Colace 100 mg daily, Coreg 3.125 mg twice a day, Coumadin 4 mg daily, digoxin 0.125 mg daily, insulin coverage, Imdur 60 mg daily, Lasix 40 mg daily, lidocaine patch to affected area, MiraLax 17 g p.o. daily, morphine 5 mg every 6 hours p.r.n., Percocet 10/325 one tab every 6 hours p.r.n., also Percocet 5/325 one tab every 4 hours p.r.n., prednisone 10 mg daily, Protonix 40 mg daily, IV fluid normal saline 60 mL per hour, Synthroid 125 mcg daily, Tylenol p.r.n., Xanax 0.25 mg every 8 hours p.r.n., Zestril 5 mg daily, Zofran p.r.n. basis. LABORATORY DATA: Shows hemoglobin 11, hematocrit 31.6, WBC of 5.2, platelet is 138. INR 3.13. Sodium 136, potassium 4.0, chloride 96, bicarbonate 33. BUN 32, creatinine 1.4. Glucose 108. Calcium 9. AST 22, ALT 25, alk phos is 118, albumin is 3.7. IMPRESSION AND PLAN: Chronic obstructive lung disease, obstructive sleep apnea syndrome, noncompliant with continuous positive airway pressure, cardiomyopathy, diabetes, atrial fibrillation, anemia, cardiac arrhythmia requiring pacemaker, seizure disorder, hypothyroid, history of stroke, multiple compression fractures, steroid dependent, opioids dependent, benzodiazepine dependent. Pulmonary point of view, she is doing okay. Continue gastric prophylaxis, anticoagulation. We will try to decrease some of the benzodiazepine. Fall precaution. Out of bed to chair though. Thank you and we will follow with you. Cyril Justice MD cc:
[2018-02-03] MEDS: Levothyroxine 125 MCG TAB PO SCH (05:06)
[2018-02-03 06:58] LABS: EOS # 0.1 (0.0-0.7); EOS % 1.6 % (1.5-5.0); GRAN # 2.75 (1.4-6.5); GRAN % 71.8 % (50.0-68.0); LYMPH # 0.8 (1.2-3.4); LYMPH % 19.8 % (22.0-35.0); MEAN CORPUSCULAR HEMOGLOBIN 33.8 pg (25.0-35.0); MEAN CORPUSCULAR HGB CONC 34.8 g/dl (31.0-37.0); MEAN PLATELET VOLUME 9.9 fl (7.0-11.0); MONO # 0.3 (0.1-0.6); MONO % 6.8 % (1.0-6.0); RBC 2.96 10^6/uL (3.5-6.1); RED CELL DISTRIBUTION WIDTH 13.7 % (11.5-14.5); WHITE BLOOD COUNT 3.8 10^3/ul (4.5-11.0)
[2018-02-03 07:34] LABS: ALB/GLOB RATIO 1.3 (1.1-1.8); ALBUMIN 3.2 g/dL (3.0-4.8); CALCIUM 8.1 mg/dL (8.4-10.5)
--- NOTE | 2018-02-03 07:48 | CP.PCM.PN ---
Subjective - Date & Time of Evaluation Date of Evaluation: 02/03/18 Time of Evaluation: 06:45 - Subjective Subjective: Denies chest pain, denies shortness of breath, looks better than last saturday, feels better Reason for consult and follow up: Intractable back pain, status post fall, history of coronary artery disease,post CABG,post AICD. History of myocardial infarction, ischemic cardiomyopathy,mechanical valve repai, multiple blood transfusion, Iron/oncology clinic, history of angioplasia of colon, hypertension , hyperlipidemia, CVA left side weakness, TIA, diabetes mellitus, peripheral neuropathy, breast cancer post mastectomy. right subclavian vanessa cath. Objective - Vital Signs/Intake and Output Vital Signs (last 24 hours): Temp Pulse Resp BP Pulse Ox 98.1 F 80 18 98/52 L 95 02/02/18 08:12 02/02/18 18:00 02/02/18 08:12 02/02/18 17:54 02/02/18 08:12 Intake and Output: 02/03/18 02/03/18 06:59 18:59 Intake Total 0 Output Total 475 Balance -475 - Medications Medications: Current Medications Acetaminophen (Tylenol 325mg Tab) 650 mg PO Q4 PRN PRN Reason: Fever >100.4 F Alprazolam (Xanax) 0.125 mg PO Q8H PRN; Protocol PRN Reason: Anxiety Stop: 02/06/18 19:57 Arformoterol Tartrate (Brovana) 15 mcg IH [id number] [facility] Last Admin: 02/03/18 07:37 Dose: 15 mcg Calcium/Vitamin D (Oscal-D 250 Mg-125 Units Tab) 1 tab PO DAILY [facility] Carvedilol (Coreg) 3.125 mg PO BID [facility] Last Admin: 02/02/18 17:54 Dose: Not Given Digoxin (Digoxin) 0.125 mg PO 1400 [facility] Docusate Sodium (Colace) 100 mg PO DAILY [facility] Last Admin: 02/02/18 09:38 Dose: 100 mg Furosemide (Lasix) 40 mg PO DAILY [facility] Last Admin: 02/02/18 09:41 Dose: 40 mg Insulin Human Regular (Humulin R Low) 0 units SC ACHS [facility] PRN Reason: Protocol Last Admin: 02/02/18 22:08 Dose: Not Given Isosorbide Mononitrate (Imdur) 60 mg PO DAILY [facility] Last Admin: 02/02/18 09:39 Dose: 60 mg Levothyroxine Sodium (Synthroid) 125 mcg PO 0600 [facility] Last Admin: 02/03/18 05:06 Dose: 125 mcg Lidocaine (Lidoderm) 2 ea TD DAILY [facility] Last Admin: 02/02/18 09:45 Dose: 2 ea Lisinopril (Zestril) 5 mg PO DAILY [facility] Last Admin: 02/02/18 09:39 Dose: 5 mg Morphine Sulfate (Morphine) 5 mg IVP Q6H PRN PRN Reason: Pain, severe (8-10) Last Admin: 01/31/18 18:17 Dose: 5 mg Ondansetron HCl (Zofran Inj) 4 mg IVP Q6H PRN PRN Reason: Nausea/Vomiting Last Admin: 02/02/18 13:01 Dose: 4 mg Oxycodone/Acetaminophen (Percocet 5/325 Mg Tab) 1 tab PO Q4H PRN PRN Reason: Pain, moderate (4-7) Stop: 02/03/18 09:53 Last Admin: 02/02/18 22:10 Dose: 1 tab Pantoprazole Sodium (Protonix Ec Tab) 40 mg PO DAILY [facility] Last Admin: 02/02/18 09:40 Dose: 40 mg Polyethylene Glycol (Miralax) 17 gm PO DAILY [facility] Last Admin: 02/02/18 09:44 Dose: 17 gm Prednisone (Prednisone Tab) 10 mg PO DAILY [facility] Last Admin: 02/02/18 09:39 Dose: 10 mg Sucralfate (Carafate Oral Susp) 1 gm PO BID [facility] Last Admin: 02/02/18 17:54 Dose: 1 gm Warfarin Sodium (Coumadin) 2 mg PO 1800 [facility] PRN Reason: Protocol Zolpidem Tartrate (Ambien) 5 mg PO HS PRN; Protocol PRN Reason: Insomnia Last Admin: 02/01/18 21:53 Dose: 5 mg - Labs Labs: 02/03/18 05:45 02/03/18 05:45 PT 36.9 SECONDS (9.4-12.5) H 02/02/18 05:30 INR 3.13 (0.93-1.08) H 02/02/18 05:30 APTT 38.2 Seconds (25.1-36.5) H 01/30/18 14:07 - Constitutional Appears: No Acute Distress - Head Exam Head Exam: NORMAL INSPECTION - Eye Exam Eye Exam: Normal appearance Pupil Exam: NORMAL ACCOMODATION - ENT Exam ENT Exam: Mucous Membranes Moist, Normal Exam - Respiratory Exam Respiratory Exam: Clear to Ausculation Bilateral, NORMAL BREATHING PATTERN - Cardiovascular Exam Cardiovascular Exam: +S1, +S2 Additional comments: right subclavian vanessa cath accessed IV infusing - GI/Abdominal Exam GI & Abdominal Exam: Soft, Normal Bowel Sounds - Extremities Exam Extremities Exam: Normal Capillary Refill Additional comments: left sided weakness due to history of CVA - Back Exam Additional comments: lower back pain due to history of fall - Neurological Exam Neurological Exam: Alert, Awake, Oriented x3 - Psychiatric Exam Psychiatric exam: Normal Affect, Normal Mood - Skin Skin Exam: Dry, Intact, Normal Color Assessment and Plan - Assessment and Plan (Free Text) Assessment: IMPRESSION:Intractable back pain, status post fall, history of coronary artery disease,post CABG,post AICD. History of myocardial infarction, ischemic cardiomyopathy,mechanical valve repai, multiple blood transfusion, Iron/ oncology clinic, history of angioplasia of colon, hypertension, hyperlipidemia, CVA left side weakness, TIA, diabetes mellitus, peripheral neuropathy, breast cancer post mastectomy. right subclavian vanessa cath. Plan: Stable cardiac status Back pain claimed to be better ECHO done 01/31/18-LVEF- 40-45%, mild aortic regurgitation, moderate valvular aortic stenosis, mild to moderate tricuspid regurgitation, No vwegetation, AICD lead intact ( full report in chart) Continue current medications Will repeat TSH on Saturday Continue current treatment Potassium level today 3.4, will cover with KCL 40 meq today Will follow up Plan and treatment discussed with Dr. Naranjo
[2018-02-03] MEDS ORDERED: Potassium Chloride 40 mEq/30 ml LIQ UD PO ONE (08:06)
[2018-02-03] MEDS ORDERED: Potassium Chloride 20 mEq ER Tab PO ONE (09:16)
[2018-02-03] MEDS: Sucralfate 1 gm/10 ml Oral Susp UD PO SCH ×2 (09:37→18:34)
[2018-02-03] MEDS: Insulin Reg-LOW-Coverage SC SCH ×4 (09:41→22:19)
[2018-02-03] MEDS: Lidocaine 5% Patch TD SCH (09:42)
[2018-02-03] MEDS: POLYETHYLENE GLYCOL 3350 17 GM/Dose PACKET PO SCH (09:42)
[2018-02-03] MEDS: Pantoprazole 40 mg EC Tab PO SCH (09:43)
[2018-02-03] MEDS: Morphine 5 MG/ML SYRINGE IVP PRN (09:43)
[2018-02-03] MEDS: Calcium-Vit D 250 mg-125 Units Tab UD PO SCH (09:43)
--- NOTE | 2018-02-03 10:43 | NM ---
PROCEDURE: Whole Body Bone Scan HISTORY: Severe back pain. Eval L1 comp fx for uptake COMPARISON: 11/01/2017 CT lumbar spine TECHNIQUE: Following administration of 15.6 miCu of Tc MDP multiplanar whole body images were obtained. FINDINGS: Evidence for bony metastatic disease: None. Degenerative uptake: None. Physiologic uptake: Normal physiologic activity in the kidneys. Other findings: Faint increased uptake in the L1 vertebral body consistent with old compression fracture. IMPRESSION: No evidence of acute osseous abnormality. Faint increased uptake L1 compared remaining thoracolumbar vertebral bodies consistent with old fracture.
--- NOTE | 2018-02-03 10:53 | CP.PCM.PN ---
Subjective - Date & Time of Evaluation Date of Evaluation: 02/03/18 Time of Evaluation: 09:00 - Subjective Subjective: PGY-[address] Newman's service Patient seen and examined at bedside. No acute distress. Patient states that her back pain has greatly improved and she can now move without great pain. She denies abd pain, and is tolertaing her diet. She denies pain. She denies fever, chills, chest pain, sob, abd pain, n/v. Objective - Vital Signs/Intake and Output Vital Signs (last 24 hours): Temp Pulse Resp BP Pulse Ox 98.2 F 82 20 140/77 96 02/03/18 08:13 02/03/18 08:13 02/03/18 08:13 02/03/18 09:41 02/03/18 08:13 Intake and Output: 02/03/18 02/03/18 06:59 18:59 Intake Total 0 Output Total 475 Balance -475 - Medications Medications: Current Medications Acetaminophen (Tylenol 325mg Tab) 650 mg PO Q4 PRN PRN Reason: Fever >100.4 F Alprazolam (Xanax) 0.125 mg PO Q8H PRN; Protocol PRN Reason: Anxiety Stop: 02/06/18 19:57 Arformoterol Tartrate (Brovana) 15 mcg IH [id number] [facility] Calcium/Vitamin D (Oscal-D 250 Mg-125 Units Tab) 1 tab PO DAILY [facility] Last Admin: 02/03/18 09:43 Dose: 1 tab Carvedilol (Coreg) 3.125 mg PO BID [facility] Last Admin: 02/03/18 09:40 Dose: 3.125 mg Digoxin (Digoxin) 0.125 mg PO 1400 [facility] Docusate Sodium (Colace) 100 mg PO DAILY [facility] Last Admin: 02/03/18 09:38 Dose: 100 mg Furosemide (Lasix) 40 mg PO DAILY [facility] Last Admin: 02/03/18 09:41 Dose: 40 mg Insulin Human Regular (Humulin R Low) 0 units SC ACHS [facility] PRN Reason: Protocol Last Admin: 02/03/18 09:41 Dose: Not Given Isosorbide Mononitrate (Imdur) 60 mg PO DAILY [facility] Last Admin: 02/03/18 09:41 Dose: 60 mg Levothyroxine Sodium (Synthroid) 125 mcg PO 0600 [facility] Last Admin: 02/03/18 05:06 Dose: 125 mcg Lidocaine (Lidoderm) 2 ea TD DAILY [facility] Last Admin: 02/03/18 09:42 Dose: 2 ea Lisinopril (Zestril) 5 mg PO DAILY [facility] Last Admin: 02/03/18 09:44 Dose: 5 mg Morphine Sulfate (Morphine) 5 mg IVP Q6H PRN PRN Reason: Pain, severe (8-10) Last Admin: 02/03/18 09:43 Dose: 5 mg Ondansetron HCl (Zofran Inj) 4 mg IVP Q6H PRN PRN Reason: Nausea/Vomiting Last Admin: 02/02/18 13:01 Dose: 4 mg Pantoprazole Sodium (Protonix Ec Tab) 40 mg PO DAILY [facility] Last Admin: 02/03/18 09:43 Dose: 40 mg Polyethylene Glycol (Miralax) 17 gm PO DAILY [facility] Last Admin: 02/03/18 09:42 Dose: 17 gm Prednisone (Prednisone Tab) 10 mg PO DAILY [facility] Last Admin: 02/03/18 09:43 Dose: 10 mg Sucralfate (Carafate Oral Susp) 1 gm PO BID [facility] Last Admin: 02/03/18 09:37 Dose: 1 gm Warfarin Sodium (Coumadin) 2 mg PO 1800 [facility] PRN Reason: Protocol Zolpidem Tartrate (Ambien) 5 mg PO HS PRN; Protocol PRN Reason: Insomnia Last Admin: 02/01/18 21:53 Dose: 5 mg - Labs Labs: 02/03/18 05:45 02/03/18 05:45 PT 36.9 SECONDS (9.4-12.5) H 02/02/18 05:30 INR 3.13 (0.93-1.08) H 02/02/18 05:30 APTT 38.2 Seconds (25.1-36.5) H 01/30/18 14:07 - Constitutional Appears: No Acute Distress - Head Exam Head Exam: ATRAUMATIC, NORMOCEPHALIC - Eye Exam Eye Exam: EOMI, Normal appearance - ENT Exam ENT Exam: Mucous Membranes Moist - Respiratory Exam Respiratory Exam: Clear to Ausculation Bilateral, NORMAL BREATHING PATTERN. absent: Rales, Rhonchi, Wheezes, Respiratory Distress - Cardiovascular Exam Cardiovascular Exam: REGULAR RHYTHM, +S1, +S2. absent: Bradycardia, Tachycardia , Irregular Rhythm, Murmur - GI/Abdominal Exam GI & Abdominal Exam: Soft, Normal Bowel Sounds. absent: Distended, Firm, Tenderness - Extremities Exam Extremities Exam: Normal Inspection. absent: Pedal Edema, Tenderness - Neurological Exam Neurological Exam: Alert, Oriented x3 - Skin Skin Exam: Dry, Intact, Normal Color, Warm Assessment and Plan - Assessment and Plan (Free Text) Assessment: 77 yo female with PMH of CHF, CPOD, diabetes, a. fib, iron deficiency anemia, pacemaker, defibrillator, CAD, seizure , hypothyroidism presented with intractable back pain with compression fracture unrelieved by oral narcotic compression fracture of L1 urinary retention copd CHF CPOD diabetes A. fib iron deficiency anemia Plan: CT lumbar spine showed minimal compression fracture of L1, multilevel degenerative disc disease without severe stenosis, mild central stenosis at L4- 5 can not get MRI due to pacemaker bone scan showed old fracture of L1 IR consulted Morphine 5mg q6h, percocet 10/325 continue lidoderm patch 2 side by side to lumbar back pain management consulted Neurology consulted ISS with finger stick achs Cardiology consulted, h/o pacemaker, cad, chf Echo showed E of 40-45%, moderate aortic stenosis Synthriod was increased due to elevated TSH levels urinary retention, s/p Cordova catheter inserted consider d/c cordova elevated creatinine on admission, nephrology consult, recommended to hold lasix and lisinopril and encourage PO intake for prerenal azotemia Pulmonary consulted PT evaluation pending case reviewed and discussed with Dr. Newman
[2018-02-03] MEDS ORDERED: Morphine 5 MG/ML SYRINGE IVP PRN (16:17)
[2018-02-03] MEDS ORDERED: Phytonadione 10 mg/ml Inj (Adult) SC ONE (16:55)
--- NOTE | 2018-02-03 19:48 | PN ---
DATE: 02/03/2018 SUBJECTIVE: The patient is seen lying in bed. She is awake. She is alert. She reports her pain is somewhat better today. She reports that she ate. PHYSICAL EXAMINATION: GENERAL: Elderly lady, lying in bed. VITAL SIGNS: Blood pressure 140/77, heart rate 82, respiratory rate 20, temperature 98.2. HEENT: Normocephalic, atraumatic. NECK: Supple, no JVD. LUNGS: Bilateral equal air entry, bilateral equal expansion. CARDIAC: S1 and S2, regular rate and rhythm, no murmur, no rub. ABDOMEN: Soft, nondistended, nontender, bowel sounds present. EXTREMITIES: No lower extremity edema. INTAKE AND OUTPUT: 600/925. LABORATORY DATA: Hemoglobin 10. Sodium 139, potassium 3.4, BUN 29, creatinine 1.3, glucose 81, calcium 8.1. CURRENT MEDICATIONS: Ambien, Brovana, Carafate, Colace, Coreg 3.125 b.i.d., Coumadin 2 mg, digoxin 0.125, insulin, Imdur 60, Lasix 40, MiraLax 17 g, morphine, Os-Dhaval, prednisone, Protonix, Synthroid, lisinopril 5, Zofran. ASSESSMENT: 1. Acute kidney injury superimposed on chronic kidney disease stage 2/3, mild acute kidney injury. 2. Hypokalemia. 3. Chronic pain. 4. Congestive heart failure. 5. Chronic obstructive pulmonary disease. PLAN: 1. Replace potassium. 2. Avoid nephrotoxins. 3. Okay to continue CHRYSTAL inhibitor. 4. Pain management. 5. Monitor fingersticks and continue insulin. 6. Continue . Litzy Ocasio MD
[2018-02-03] MEDS: Morphine 15 mg SR Tab PO SCH (22:15)
--- NOTE | 2018-02-04 03:26 | CON ---
DATE: 02/03/2018 CHIEF COMPLAINT/HISTORY OF PRESENT ILLNESS: This is a 77-year-old female with multiple medial problems, who was admitted to the hospital post fall with severe lumbar back pain. She has a history of compression fractures. Her recent imaging includes a CT scan which demonstrates a linear compression fracture in the superior aspect of the L1 vertebral body, which is mild. She cannot have an MRI due to a defibrillator. Bone scan revealed increased uptake at L1. The patient has significant tenderness of the mid lumbar spine. She is requiring Lidoderm patches and opiates. I spoke with Dr. Newman. If we could get her some relief and improve her mobility, he would like to consider a kyphoplasty. PAST MEDICAL HISTORY: Significant for a mechanical prosthetic valve on anticoagulation. She has a history of angiodysplasias and severe anemia. Other issues include COPD, previous stroke, history of breast cancer requiring mastectomy, and multiple compression fractures. PLAN: I will speak with the patient about an L1 kyphoplasty. This is a relatively noninvasive procedure, which could give her some relief from her acute L1 fracture. Unfortunately, this will not change her issues with her chronic degenerative changes of the lower lumbar spine. Hopefully, we will improve her pain and increase her mobility. Marcial Childers MD [facility]
[2018-02-04] MEDS: Sodium Chloride 0.45% 1,000 ML IV SCH ×2 (05:12→17:37)
[2018-02-04] MEDS: Levothyroxine 125 MCG TAB PO SCH (05:15)
--- NOTE | 2018-02-04 06:05 | CP.PCM.PN ---
Subjective - Date & Time of Evaluation Date of Evaluation: 02/04/18 Time of Evaluation: 06:40 - Subjective Subjective: Feels better, less back pain, denies chest pain, denies shortness of breath, verbalized going for procedure for her back Reason for consult and follow up: Intractable back pain, history of coronary artery disease,post CABG, post AICD. History of myocardial infarction, ischemic cardiomyopathy,mechanical valve repair ,multiple blood transfusion, Iron/ oncology clinic, history of angioplasia of colon, hypertension, hyperlipidemia, CVA left side weakness, TIA, diabetes mellitus, peripheral neuropathy, breast cancer post mastectomy. right subclavian vanessa cath. Seen and examined by me and Dr. Naranjo Objective - Vital Signs/Intake and Output Vital Signs (last 24 hours): Temp Pulse Resp BP Pulse Ox 98.2 F 80 20 109/58 L 95 02/04/18 00:00 02/04/18 02:00 02/04/18 00:00 02/04/18 00:00 02/04/18 00:00 Intake and Output: 02/03/18 02/04/18 18:59 06:59 Intake Total 540 Output Total 1000 Balance -460 - Medications Medications: Current Medications Acetaminophen (Tylenol 325mg Tab) 650 mg PO Q4 PRN PRN Reason: Fever >100.4 F Alprazolam (Xanax) 0.125 mg PO Q8H PRN; Protocol PRN Reason: Anxiety Stop: 02/06/18 19:57 Arformoterol Tartrate (Brovana) 15 mcg IH [id number] [facility] Calcium/Vitamin D (Oscal-D 250 Mg-125 Units Tab) 1 tab PO DAILY [facility] Last Admin: 02/03/18 09:43 Dose: 1 tab Carvedilol (Coreg) 3.125 mg PO BID [facility] Last Admin: 02/03/18 18:34 Dose: Not Given Digoxin (Digoxin) 0.125 mg PO 1400 [facility] Docusate Sodium (Colace) 100 mg PO DAILY [facility] Last Admin: 02/03/18 09:38 Dose: 100 mg Furosemide (Lasix) 40 mg PO DAILY [facility] Last Admin: 02/03/18 09:41 Dose: 40 mg Sodium Chloride (Sodium Chloride 0.45%) 1,000 mls @ 80 mls/hr IV .[id number] [facility] Last Admin: 02/04/18 05:12 Dose: 80 mls/hr Insulin Human Regular (Humulin R Low) 0 units SC ACHS [facility] PRN Reason: Protocol Last Admin: 02/03/18 22:19 Dose: Not Given Isosorbide Mononitrate (Imdur) 60 mg PO DAILY [facility] Last Admin: 02/03/18 09:41 Dose: 60 mg Levothyroxine Sodium (Synthroid) 125 mcg PO 0600 [facility] Last Admin: 02/04/18 05:15 Dose: 125 mcg Lidocaine (Lidoderm) 2 ea TD DAILY [facility] Last Admin: 02/03/18 09:42 Dose: 2 ea Lisinopril (Zestril) 5 mg PO DAILY [facility] Last Admin: 02/03/18 09:44 Dose: 5 mg Morphine Sulfate (Morphine Extended Release Tab) 15 mg PO Q12 [facility] Last Admin: 02/03/18 22:15 Dose: 15 mg Morphine Sulfate (Morphine) 2 mg IVP Q6H PRN PRN Reason: Pain, severe (8-10) Ondansetron HCl (Zofran Inj) 4 mg IVP Q6H PRN PRN Reason: Nausea/Vomiting Last Admin: 02/02/18 13:01 Dose: 4 mg Pantoprazole Sodium (Protonix Ec Tab) 40 mg PO DAILY [facility] Last Admin: 02/03/18 09:43 Dose: 40 mg Polyethylene Glycol (Miralax) 17 gm PO DAILY [facility] Last Admin: 02/03/18 09:42 Dose: 17 gm Prednisone (Prednisone Tab) 10 mg PO DAILY [facility] Last Admin: 02/03/18 09:43 Dose: 10 mg Sucralfate (Carafate Oral Susp) 1 gm PO BID [facility] Last Admin: 02/03/18 18:34 Dose: 1 gm Warfarin Sodium (Coumadin) 2 mg PO 1800 [facility] PRN Reason: Protocol Zolpidem Tartrate (Ambien) 5 mg PO HS PRN; Protocol PRN Reason: Insomnia Last Admin: 02/01/18 21:53 Dose: 5 mg - Labs Labs: 02/03/18 05:45 02/03/18 05:45 PT 36.9 SECONDS (9.4-12.5) H 02/02/18 05:30 INR 3.13 (0.93-1.08) H 02/02/18 05:30 APTT 38.2 Seconds (25.1-36.5) H 01/30/18 14:07 - Constitutional Appears: No Acute Distress - Head Exam Head Exam: NORMAL INSPECTION - Eye Exam Eye Exam: Normal appearance Pupil Exam: NORMAL ACCOMODATION - ENT Exam ENT Exam: Mucous Membranes Moist - Respiratory Exam Respiratory Exam: Clear to Ausculation Bilateral, NORMAL BREATHING PATTERN - Cardiovascular Exam Cardiovascular Exam: REGULAR RHYTHM, +S1, +S2 - GI/Abdominal Exam GI & Abdominal Exam: Soft, Normal Bowel Sounds - Extremities Exam Extremities Exam: Full ROM, Normal Capillary Refill - Neurological Exam Neurological Exam: Alert, Awake, Oriented x3 - Psychiatric Exam Psychiatric exam: Normal Affect, Normal Mood - Skin Skin Exam: Intact, Normal Color, Warm Assessment and Plan - Assessment and Plan (Free Text) Assessment: IMPRESSION: Intractable back pain, status post fall, history of coronary artery disease,post CABG,post AICD. History of myocardial infarction, ischemic cardiomyopathy,mechanical valve repair,hypertension, hyperlipidemia, CVA left side weakness, TIA, diabetes mellitus, peripheral neuropathy, breast cancer post mastectomy. right subclavian vanessa cath. multiple blood transfusion, Iron/ oncology clinic, history of angioplasia of colon, Plan: Less pain on her back Stable cardiac status Seen by IR for her back and possible L1 Kyphoplasty Will repeat TSH on tomorrow (synthroid dose increased few day ago) Continue current treatment Potassium level today 3.9. Will follow up Plan and treatment discussed with Dr. Naranjo
[2018-02-04 06:24] LABS: EOS % 0.7 % (1.5-5.0); GRAN # 3.35 (1.4-6.5); GRAN % 74.7 % (50.0-68.0); HEMOGLOBIN 10.5 g/dL (12.0-16.0); LYMPH # 0.8 (1.2-3.4); LYMPH % 18.8 % (22.0-35.0); MEAN CELL VOLUME 97.4 fl (80.0-105.0); MEAN CORPUSCULAR HEMOGLOBIN 33.5 pg (25.0-35.0); MEAN CORPUSCULAR HGB CONC 34.4 g/dl (31.0-37.0); MONO # 0.3 (0.1-0.6); MONO % 5.8 % (1.0-6.0); RBC 3.13 10^6/uL (3.5-6.1); RED CELL DISTRIBUTION WIDTH 13.6 % (11.5-14.5); WHITE BLOOD COUNT 4.5 10^3/ul (4.5-11.0)
[2018-02-04 06:49] LABS: CALCIUM 8.9 mg/dL (8.4-10.5)
[2018-02-04 07:03] LABS: INR 1.93 (0.93-1.08); PARTIAL THROMBOPLASTIN TIME 42.5 Seconds (25.1-36.5); PROTHROMBIN TIME 22.5 SECONDS (9.4-12.5)
[2018-02-04] MEDS: Insulin Reg-LOW-Coverage SC SCH ×4 (08:05→22:00)
--- NOTE | 2018-02-04 08:24 | PN ---
DATE: 02/03/2018 PULMONARY PROGRESS NOTE REFERRING PHYSICIAN: Niall Vega MD. SUBJECTIVE: She is sitting at the side of the bed, having dinner. Night was unremarkable. Feels a little better today. No headache, no rhinitis. No nausea, no vomiting, no diarrhea. No leg pain or leg swelling. OBJECTIVE: GENERAL: In no acute distress. VITAL SIGNS: Temperature is 98, heart rate is 80, respiratory rate is 20, blood pressure 103/66, pulse ox 95% on room air. HEENT: Moist mucous membranes. No ulcer or thrush. NECK: Supple. No JVD. LUNGS: Have fair airflow with a few rhonchi. HEART: S1, S2. ABDOMEN: Soft, nontender. No organomegaly. EXTREMITIES: There is no edema. NEUROLOGIC: Awake, alert, follows simple command. MEDICATIONS: She is on Ambien 5 mg at bedtime p.r.n., Brovana inhaled twice a day, Carafate 1 g twice a day, Colace 100 mg daily, Coreg 3.125 mg twice a day, Coumadin 3 mg which is held today, digoxin 0.125 mg daily, insulin coverage,Imdur 60 mg daily, Lasix 40 mg daily, lidocaine patch to the affected area, MiraLax 17 g daily, morphine 2 mg IV every 6 hour p.r.n. and also morphine extended release 50 mg every 12 hour, calcium plus vitamin D daily, prednisone 10 mg daily, Protonix 40 mg daily, IV fluid half-normal saline 80 mL/hour, Synthroid 125 mcg daily, Tylenol p.r.n. basis, Xanax 0.125 mg every 8 hour p.r.n., Zestril 5 mg daily, Zofran on a p.r.n. basis. LABORATORY DATA: Shows hemoglobin 10, hematocrit 28.7, WBC 3.8, platelet is 123. Sodium 139, potassium 3.4, chloride 101, bicarbonate 28, BUN 29, creatinine 1.3, glucose 134, calcium is 8.1. AST 20, ALT 26, alk phos is 107. Albumin is 3.2. IMPRESSION AND PLAN: Chronic obstructive lung disease, obstructive sleep apnea syndrome, noncompliant with the CPAP/BiPAP, cardiomyopathy, diabetes, atrial fibrillation, anemia, cardiac arrhythmia requiring pacemaker, seizure disorder, hypothyroid, history of stroke, multiple compression fracture of the spine, steroids dependent, opiate dependent, benzodiazepine dependent. From pulmonary point of view, she feels little better. Keep head elevated at 45 degrees. Bronchodilator, fall precaution. High risk for thromboembolic disease because of atrial fibrillation, also recurrent anemia. Follow up labs in the morning. Thank you and we will follow with you. Cyril Justice MD
[2018-02-04] MEDS ORDERED: Magnesium Sulfate 2 GM in Sodium Chloride 0.9% 100 ML IVPB ONE (09:11)
[2018-02-04] MEDS ORDERED: Morphine 4 mg/ml ISec IVP PRN (09:32)
[2018-02-04] MEDS: Sucralfate 1 gm/10 ml Oral Susp UD PO SCH ×2 (09:41→17:31)
[2018-02-04] MEDS: Lidocaine 5% Patch TD SCH (09:43)
[2018-02-04] MEDS: POLYETHYLENE GLYCOL 3350 17 GM/Dose PACKET PO SCH (09:43)
[2018-02-04] MEDS: Calcium-Vit D 250 mg-125 Units Tab UD PO SCH (09:44)
[2018-02-04] MEDS: Pantoprazole 40 mg EC Tab PO SCH (09:44)
[2018-02-04] MEDS: Morphine 15 mg SR Tab PO SCH ×2 (09:44→21:28)
[2018-02-04] MEDS ORDERED: Lidocaine 2% Inj (20ml) ONE (12:54)
[2018-02-04] MEDS ORDERED: Midazolam 2 MG/2 ML VIAL ONE ×2 (12:55→13:06)
[2018-02-04] MEDS ORDERED: Iodixanol 320 MG/ML 100 ML BOTTLE IV ONE (13:02)
[2018-02-04] MEDS ORDERED: Flumazenil 0.1 mg/ml Inj (5ml) IVP ONE (13:37)
[2018-02-04] MEDS ORDERED: Naloxone 0.4 mg/ml Inj (Adult) ONE (13:39)
--- NOTE | 2018-02-04 14:05 | VASCULAR ---
PROCEDURE: 1. L1 kyphoplasty. 2. L1 vertebral body biopsy. HISTORY: Severe, refractory back pain. Unresponsive to bed rest and analgesics. Acute L1 compression fracture on CT imaging and bone scan PHYSICIAN(S): Marcial Childers MD. TECHNIQUE: he relative risks and indications of the procedure were explained to the patient and informed written consent obtained. The patient was placed prone on the arteriography table and the thoracolumbar spine prepped and draped in the usual sterile fashion. Conscious sedation and monitoring were provided throughout the procedure by a nurse. The L1 vertebral body was carefully localized with fluoroscopy. The skin and soft tissues were anesthetized with 1% Xylocaine. Under direct fluoroscopic guidance, bilateral transpedicular bone needles were placed into the posterior aspect of the L1 vertebral body. Through the right needle, a biopsy of the [id number] body was performed. The specimen was sent to histology. Next bilateral 15mm bone balloons were placed in the superior and anterior portion of the L1 vertebral body. They were inflated to approximately 3 cc apiece with dilute contrast. The balloons were removed and 4.5 cc of barium-impregnated PMMA cement instilled into the L1 vertebral body. No extravasation was seen. The bone needles were removed. The patient tolerated the procedure well. IMPRESSION: 1. Fluoroscopically-guided L1 kyphoplasty. 2. Fluoroscopic L1 vertebral body biopsy.
[2018-02-04] MEDS: Magnesium Oxide 400 mg Tab UD PO SCH (17:34)
[2018-02-04] MEDS: Potassium & Sodium Phosphate PO SCH (17:35)
[2018-02-04] MEDS ORDERED: Levothyroxine 175 MCG TAB PO SCH (22:36)
[2018-02-05 02:51] VITALS: RESP 16
[2018-02-05 03:01] VITALS: TEMP 98.3
--- NOTE | 2018-02-05 04:13 | PN ---
DATE: ONCOLOGY PROGRESS NOTE LOCATION: The patient is in room 370, bed 2. SUBJECTIVE: A 77-year-old female, who has history of CA of the breast, history of multiple angiodysplasias of bowel with iron deficiency, declining intermittent IV iron therapy and blood transfusion, history of coronary artery disease, post coronary artery bypass surgery, post AICD, history of myocardial infarction, ischemic cardiomyopathy, mechanical valve repair, multiple blood transfusions, hypertension, hyperlipidemia, status post CVA with left-sided weakness, TIA, diabetes mellitus, peripheral neuropathy, right subclavian Port-A-Cath, who was admitted to the hospital with progressively worsening back pain that has been not manageable at all at home with a pain at pain scale of 0 to 10 being 10/10. Workup in the hospital revealed the patient has compression fracture at L1-L2 and bone scan was positive in that area. The patient could not be a candidate for an MRI because of the ICD, and after discussions with Dr. Marcial Childers in Vascular, we thought the patient will be a candidate for kyphoplasty to alleviate the severe pain the patient was having. The patient could not be even made to sit up in the bed; as soon as the head of the bed was raised to more than 45 degrees, the patient will be in excruciating pain. She has been receiving IV narcotics for pain and the patient is currently status post kyphoplasty done earlier this afternoon. The patient feels that pain is significantly better since it came back, though it is too soon to say. The patient still has a Fritz catheter in place, which has not been removed. PHYSICAL EXAMINATION: VITAL SIGNS: Stable. T-max is 98.4, pulse is 80, respirations 20, blood pressure 109/58, pulse ox is 96%. The patient is on nasal cannula. GENERAL: The patient is in no acute distress. Vital signs are stable. HEENT: Head is normocephalic, atraumatic. Conjunctivae pale. Sclerae are anicteric. Pupils are equally reactive to light and accommodation. Examination of the oropharynx reveals no oropharyngeal lesions. The patient has poor dentition. NECK: Supple. There is no adenopathy. No jugular venous distention noted. LUNGS: Clear to percussion and auscultation. HEART: Reveals S1 and S2 to be normal. The patient has a prosthetic valve sound. ABDOMEN: Soft, nontender. Bowel sounds are present. The patient is status post mastectomy on the left side. Right breast is unremarkable. Abdominal exam reveals liver and spleen to be not palpable. No rebound, rigidity or guarding is noted. Bowel sounds are present and normal. EXTREMITIES: Reveal full range of motions. No cyanosis, clubbing or edema is noted. NEUROLOGIC: Reveals higher functions to be normal. No focal deficits are noted. The patient has mild left-sided weakness that is old. The patient complained that she is forgetting a lot, especially recent events. PSYCHIATRIC: The patient has normal affect and normal mood. SKIN: Turgor is normal. No skin lesions are noted. ASSESSMENT, NOTES AND PLAN: The patient has intractable back pain secondary to post fall, status post kyphoplasty, history of coronary artery disease, status post coronary artery bypass graft, post automatic implantable cardioverter-defibrillator, history of myocardial infarction, ischemic cardiomyopathy, mechanical valve repair, hypertension, hyperlipidemia, cerebrovascular accident, left-sided weakness, transient ischemic attack, diabetes mellitus, peripheral neuropathy, breast cancer, status post mastectomy, right subclavian port, status post multiple transfusions, status post IV iron therapy. Plan, we will continue narcotics for pain control now. I told the patient that with the kyphoplasty over the next 48 to 72 hours, she should start feeling better. We will start mobilizing and moving, and the patient is being assessed for transitional care unit post-kyphoplasty. The patient's TSH, which was elevated, is being replaced with Synthroid, and we will check a repeat TSH to see if TSH has come down. Currently, otherwise we will continue the current treatments. Potassium within normal range at this point in time. Plan, routine post exam instructions have been given to the patient. We will continue to monitor the blood counts and follow the patient. Time spent with the patient was greater than 45 minutes. Alexandra Newman MD
--- NOTE | 2018-02-05 04:19 | PN ---
DATE: PULMONPULMONARY PROGRESS NOTE REFERRING PHYSICIAN: Dr. Newman SUBJECTIVE: She is lying in the bed, head at 45 degrees. Night was unremarkable. Status post kyphoplasty. No nausea. No vomiting, diarrhea. No leg pain or leg swelling. OBJECTIVE: GENERAL: In no acute distress. VITAL SIGNS: Temp is 98, heart rate is 80, respiratory rate is 20, blood pressure 115/60, pulse ox 92% on 2 liter nasal cannula. HEENT: Moist mucous membrane. No ulcer or thrush noted. NECK: Supple. No JVD. LUNGS: Have fair airflow with rhonchi. HEART: S1 and S2. ABDOMEN: Soft, nontender. No organomegaly. EXTREMITIES: No edema. NEUROLOGIC: Awake, alert. Follows simple command. MEDICATIONS: She is on Ambien is 5 mg at bedtime p.r.n., Brovana inhaled twice a day, Carafate 1 twice a day, Colace 100 mg twice a day, Coreg 3.125 mg twice a day, Coumadin 2 mg will be given today, digoxin 0.125 mg daily, insulin coverage, Imdur 60 mg daily, Lasix 40 mg daily, Lidoderm patch to the affected area, magnesium oxide 400 mg twice a day, MiraLax 17 g daily, morphine 2 mg every 6 hours p.r.n., morphine extended release 50 mg twice a day, K-Phos 1 pack twice a day, calcium plus vitamin one tab daily, Protonix 40 mg daily, IV fluid half-normal saline 80 mL/hour, Synthroid 125 mcg daily, Tylenol p.r.n. basis, Xanax 0.125 mg every 8 hours p.r.n., Zestril 5 mg daily and Zofran p.r.n. basis. LABORATORY DATA: Shows hemoglobin 10.5, hematocrit 30.5, WBC 4.5, platelet count is 143. INR 1.93, PTT 42. Sodium 136, potassium 2.9, chloride 97, bicarbonate 32, BUN 26, creatinine 1.1, glucose 134, calcium 8.9, phosphorus 2.4, magnesium 1.5. TSH is 62.6. IMPRESSION AND PLAN: Chronic obstructive lung disease, obstructive sleep apnea syndrome, noncompliant with the continuous positive airway pressure/bilevel positive airway pressure, cardiomyopathy, diabetes, atrial fibrillation, anemia, cardiac arrhythmia requiring pacemaker, seizure disorder, hypothyroid, history of smoking, multiple compression fractures of spine, steroids dependent, opiate dependent, benzodiazepine dependent, status post kyphoplasty. Pulmonary point of view, doing okay. May give Coumadin. Follow up INR in the morning. Bronchodilator. Fall precaution. Follow up labs in the morning. Thank you and we will follow with you. Cyril Justice MD
[2018-02-05 06:27] LABS: EOS # 0.1 (0.0-0.7); EOS % 0.9 % (1.5-5.0); GRAN # 4.61 (1.4-6.5); HEMOGLOBIN 10.4 g/dL (12.0-16.0); LYMPH # 0.7 (1.2-3.4); MEAN CELL VOLUME 96.5 fl (80.0-105.0); MEAN CORPUSCULAR HEMOGLOBIN 33.5 pg (25.0-35.0); MEAN CORPUSCULAR HGB CONC 34.8 g/dl (31.0-37.0); MEAN PLATELET VOLUME 9.8 fl (7.0-11.0); MONO # 0.3 (0.1-0.6); MONO % 5.1 % (1.0-6.0); RBC 3.1 10^6/uL (3.5-6.1); RED CELL DISTRIBUTION WIDTH 13.7 % (11.5-14.5); WHITE BLOOD COUNT 5.7 10^3/ul (4.5-11.0)
[2018-02-05 06:39] LABS: ALB/GLOB RATIO 1.3 (1.1-1.8); ALBUMIN 3.4 g/dL (3.0-4.8); CALCIUM 8.7 mg/dL (8.4-10.5)
[2018-02-05 06:42] LABS: INR 1.16 (0.93-1.08); PARTIAL THROMBOPLASTIN TIME 30.8 Seconds (25.1-36.5); PROTHROMBIN TIME 13.4 SECONDS (9.4-12.5)
--- NOTE | 2018-02-05 07:03 | CP.PCM.PN ---
Subjective - Date & Time of Evaluation Date of Evaluation: 02/05/18 Time of Evaluation: 06:45 - Subjective Subjective: Sleeping but easily awaken, less back pain, went to IR for procedure, denies chest pain, denies shortness of breath Reason for consult and follow up: Intractable back pain, history of coronary artery disease,post CABG, post AICD. History of myocardial infarction, ischemic cardiomyopathy,mechanical valve repair ,multiple blood transfusion, Iron/ oncology clinic, history of angioplasia of colon, hypertension, hyperlipidemia, CVA left side weakness, TIA, diabetes mellitus, peripheral neuropathy, breast cancer post mastectomy. right subclavian vanessa cath. Seen and examined by me and Dr. Naranjo Objective - Vital Signs/Intake and Output Vital Signs (last 24 hours): Temp Pulse Resp BP Pulse Ox 98.3 F 80 16 119/69 98 02/05/18 00:00 02/05/18 05:11 02/05/18 00:00 02/05/18 00:00 02/05/18 00:00 Intake and Output: 02/04/18 02/05/18 18:59 06:59 Intake Total 2160 Output Total 1400 Balance 760 - Medications Medications: Current Medications Acetaminophen (Tylenol 325mg Tab) 650 mg PO Q4 PRN PRN Reason: Fever >100.4 F Alprazolam (Xanax) 0.125 mg PO Q8H PRN; Protocol PRN Reason: Anxiety Stop: 02/06/18 19:57 Arformoterol Tartrate (Brovana) 15 mcg IH [id number] [facility] Calcium/Vitamin D (Oscal-D 250 Mg-125 Units Tab) 1 tab PO DAILY [facility] Last Admin: 02/04/18 09:44 Dose: 1 tab Carvedilol (Coreg) 3.125 mg PO BID [facility] Last Admin: 02/04/18 17:33 Dose: 3.125 mg Digoxin (Digoxin) 0.125 mg PO 1400 [facility] Docusate Sodium (Colace) 100 mg PO DAILY [facility] Last Admin: 02/04/18 09:42 Dose: 100 mg Furosemide (Lasix) 40 mg PO DAILY [facility] Last Admin: 02/04/18 09:43 Dose: 40 mg Insulin Human Regular (Humulin R Low) 0 units SC ACHS [facility] PRN Reason: Protocol Last Admin: 02/04/18 22:00 Dose: Not Given Isosorbide Mononitrate (Imdur) 60 mg PO DAILY [facility] Last Admin: 02/04/18 09:42 Dose: 60 mg Levothyroxine Sodium (Synthroid) 175 mcg PO 0600 [facility] Last Admin: 02/05/18 05:46 Dose: 175 mcg Lidocaine (Lidoderm) 2 ea TD DAILY [facility] Last Admin: 02/04/18 09:43 Dose: 2 ea Lisinopril (Zestril) 5 mg PO DAILY [facility] Last Admin: 02/04/18 09:44 Dose: 5 mg Magnesium Oxide (Mag-Ox) 400 mg PO BID [facility] Last Admin: 02/04/18 17:34 Dose: 400 mg Morphine Sulfate (Morphine Extended Release Tab) 15 mg PO Q12 [facility] Last Admin: 02/04/18 21:28 Dose: 15 mg Morphine Sulfate (Morphine) 2 mg IVP Q6H PRN PRN Reason: Pain, severe (8-10) Ondansetron HCl (Zofran Inj) 4 mg IVP Q6H PRN PRN Reason: Nausea/Vomiting Last Admin: 02/02/18 13:01 Dose: 4 mg Pantoprazole Sodium (Protonix Ec Tab) 40 mg PO DAILY [facility] Last Admin: 02/04/18 09:44 Dose: 40 mg Polyethylene Glycol (Miralax) 17 gm PO DAILY [facility] Last Admin: 02/04/18 09:43 Dose: 17 gm Potassium Phos/Sodium Phos (Neutra-Phos) 1 pkt PO BID [facility] Last Admin: 02/04/18 17:35 Dose: 1 pkt Prednisone (Prednisone Tab) 5 mg PO DAILY [facility] Prednisone (Prednisone Tab) 2 mg PO DAILY [facility] Sucralfate (Carafate Oral Susp) 1 gm PO BID [facility] Last Admin: 02/04/18 17:31 Dose: 1 gm Warfarin Sodium (Coumadin) 2 mg PO 1800 [facility] PRN Reason: Protocol Last Admin: 02/04/18 17:34 Dose: Not Given Zolpidem Tartrate (Ambien) 5 mg PO HS PRN; Protocol PRN Reason: Insomnia Last Admin: 02/01/18 21:53 Dose: 5 mg - Labs Labs: 02/05/18 06:00 02/05/18 06:00 PT 13.4 SECONDS (9.4-12.5) H 02/05/18 06:00 INR 1.16 (0.93-1.08) H 02/05/18 06:00 APTT 30.8 Seconds (25.1-36.5) 02/05/18 06:00 - Constitutional Appears: No Acute Distress - Head Exam Head Exam: NORMAL INSPECTION - Eye Exam Eye Exam: Normal appearance - ENT Exam ENT Exam: Mucous Membranes Moist - Respiratory Exam Respiratory Exam: Clear to Ausculation Bilateral, NORMAL BREATHING PATTERN - Cardiovascular Exam Cardiovascular Exam: +S1, +S2 Additional comments: right subclavian vanessa cath, left subclavian AICD/PPM - GI/Abdominal Exam GI & Abdominal Exam: Soft, Normal Bowel Sounds - Exam Additional comments: cordova catheter - Extremities Exam Extremities Exam: Normal Capillary Refill - Back Exam Additional comments: some mild back pain - Neurological Exam Neurological Exam: Alert, Awake, Oriented x3 - Psychiatric Exam Psychiatric exam: Normal Affect, Normal Mood - Skin Skin Exam: Intact, Normal Color, Warm Assessment and Plan - Assessment and Plan (Free Text) Assessment: IMPRESSION: Intractable back pain, status post fall, history of coronary artery disease,post CABG,post AICD. History of myocardial infarction, ischemic cardiomyopathy,mechanical valve repair,hypertension, hyperlipidemia, CVA left side weakness, TIA, diabetes mellitus, peripheral neuropathy, breast cancer post mastectomy. right subclavian vanessa cath. multiple blood transfusion, Iron/ oncology clinic, history of angioplasia of colon, Post L1 kyphoplasty. Plan: Post L1 Kyphoplasty yesterday Less pain on her back Stable cardiac status TSH level yesterday-62.60, Synthroid dose was increased to 175mcg daily On Coreg 3.125 mg BID, digoxin 0.125 mg daily, Lasix 40 mg daily,Imdur 60 mg daily,Zestril 5 mg daily, Coumadin 2 mg daily Continue current medications Physical therapy Will follow up Plan and treatment discussed with Dr. Naranjo
[2018-02-05] MEDS ORDERED: Arformoterol 15 mcg/2 ml Inh Sol IH SCH (08:00)
[2018-02-05] MEDS: Insulin Reg-LOW-Coverage SC SCH ×2 (08:03→11:38)
--- NOTE | 2018-02-05 08:05 | CP.PCM.PN ---
Subjective - Date & Time of Evaluation Date of Evaluation: 02/05/18 Time of Evaluation: 08:02 - Subjective Subjective: PGY-[address] Newman's service Patient seen and examined at bedside. No acute distress. Patient states that her back pain has greatly improved and is 3/10. She states that she has not been ambulating much because of the pain however she reports that the pain medication does help. She continues to have cordova in place but report constipation. She denies abd pain, N/V and is tolerating her diet. She denies fever, chills, dizziness, chest pain, sob. Objective - Vital Signs/Intake and Output Vital Signs (last 24 hours): Temp Pulse Resp BP Pulse Ox 98.3 F 80 16 119/69 98 02/05/18 00:00 02/05/18 05:11 02/05/18 00:00 02/05/18 00:00 02/05/18 00:00 Intake and Output: 02/05/18 02/05/18 06:59 18:59 Intake Total 2160 Output Total 1400 Balance 760 - Medications Medications: Current Medications Acetaminophen (Tylenol 325mg Tab) 650 mg PO Q4 PRN PRN Reason: Fever >100.4 F Alprazolam (Xanax) 0.125 mg PO Q8H PRN; Protocol PRN Reason: Anxiety Stop: 02/06/18 19:57 Arformoterol Tartrate (Brovana) 15 mcg IH [id number] [facility] Last Admin: 02/05/18 07:55 Dose: Not Given Calcium/Vitamin D (Oscal-D 250 Mg-125 Units Tab) 1 tab PO DAILY [facility] Last Admin: 02/04/18 09:44 Dose: 1 tab Carvedilol (Coreg) 3.125 mg PO BID [facility] Last Admin: 02/04/18 17:33 Dose: 3.125 mg Digoxin (Digoxin) 0.125 mg PO 1400 [facility] Docusate Sodium (Colace) 100 mg PO DAILY [facility] Last Admin: 02/04/18 09:42 Dose: 100 mg Furosemide (Lasix) 40 mg PO DAILY [facility] Last Admin: 02/04/18 09:43 Dose: 40 mg Insulin Human Regular (Humulin R Low) 0 units SC ACHS [facility] PRN Reason: Protocol Last Admin: 02/04/18 22:00 Dose: Not Given Isosorbide Mononitrate (Imdur) 60 mg PO DAILY [facility] Last Admin: 02/04/18 09:42 Dose: 60 mg Levothyroxine Sodium (Synthroid) 175 mcg PO 0600 [facility] Last Admin: 02/05/18 05:46 Dose: 175 mcg Lidocaine (Lidoderm) 2 ea TD DAILY [facility] Last Admin: 02/04/18 09:43 Dose: 2 ea Lisinopril (Zestril) 5 mg PO DAILY [facility] Last Admin: 02/04/18 09:44 Dose: 5 mg Magnesium Oxide (Mag-Ox) 400 mg PO BID [facility] Last Admin: 02/04/18 17:34 Dose: 400 mg Morphine Sulfate (Morphine Extended Release Tab) 15 mg PO Q12 [facility] Last Admin: 02/04/18 21:28 Dose: 15 mg Morphine Sulfate (Morphine) 2 mg IVP Q6H PRN PRN Reason: Pain, severe (8-10) Ondansetron HCl (Zofran Inj) 4 mg IVP Q6H PRN PRN Reason: Nausea/Vomiting Last Admin: 02/02/18 13:01 Dose: 4 mg Pantoprazole Sodium (Protonix Ec Tab) 40 mg PO DAILY [facility] Last Admin: 02/04/18 09:44 Dose: 40 mg Polyethylene Glycol (Miralax) 17 gm PO DAILY [facility] Last Admin: 02/04/18 09:43 Dose: 17 gm Potassium Phos/Sodium Phos (Neutra-Phos) 1 pkt PO BID [facility] Last Admin: 02/04/18 17:35 Dose: 1 pkt Prednisone (Prednisone Tab) 5 mg PO DAILY [facility] Prednisone (Prednisone Tab) 2 mg PO DAILY [facility] Sucralfate (Carafate Oral Susp) 1 gm PO BID [facility] Last Admin: 02/04/18 17:31 Dose: 1 gm Warfarin Sodium (Coumadin) 2 mg PO 1800 [facility] PRN Reason: Protocol Last Admin: 02/04/18 17:34 Dose: Not Given Zolpidem Tartrate (Ambien) 5 mg PO HS PRN; Protocol PRN Reason: Insomnia Last Admin: 02/01/18 21:53 Dose: 5 mg - Labs Labs: 02/05/18 06:00 02/05/18 06:00 PT 13.4 SECONDS (9.4-12.5) H 02/05/18 06:00 INR 1.16 (0.93-1.08) H 02/05/18 06:00 APTT 30.8 Seconds (25.1-36.5) 02/05/18 06:00 - Constitutional Appears: Well, No Acute Distress - Head Exam Head Exam: ATRAUMATIC, NORMOCEPHALIC - Eye Exam Eye Exam: Normal appearance - ENT Exam ENT Exam: Mucous Membranes Moist - Respiratory Exam Respiratory Exam: Clear to Ausculation Bilateral, NORMAL BREATHING PATTERN. absent: Rhonchi, Wheezes, Respiratory Distress - Cardiovascular Exam Cardiovascular Exam: REGULAR RHYTHM, +S1, +S2. absent: Bradycardia, Tachycardia , Murmur - GI/Abdominal Exam GI & Abdominal Exam: Normal Bowel Sounds. absent: Distended, Firm, Soft, Tenderness - Extremities Exam Extremities Exam: Normal Inspection. absent: Pedal Edema - Neurological Exam Neurological Exam: Alert, Awake, Oriented x3 - Skin Skin Exam: Dry, Normal Color, Warm Assessment and Plan - Assessment and Plan (Free Text) Assessment: 77 yo female with PMH of CHF, CPOD, diabetes, a. fib, iron deficiency anemia, pacemaker, defibrillator, CAD, seizure , hypothyroidism presented with intractable back pain with compression fracture unrelieved by oral narcotic. Patient is s/p kyphoplasty. compression fracture of L1 urinary retention copd CHF CPOD diabetes A. fib iron deficiency anemia Plan: CT lumbar spine showed minimal compression fracture of L1, multilevel degenerative disc disease without severe stenosis, mild central stenosis at L4- 5 patient is unable to have MRI due to pacemaker, bone scan was done showed old fracture of L1 IR consulted patient s/p kyphoplasty POD #1 Continue pain managements with morphine ER 15mg q12 and Morphine 2mg q6h continue lidoderm patch pain management consulted Neurology consulted ISS with finger stick achs Cardiology consulted, h/o pacemaker, cad, chf Echo showed EF of 40-45%, moderate aortic stenosis Synthriod was increased due to elevated TSH levels, repeat TSH is down trending urinary retention, s/p Cordova catheter inserted consider d/c cordova once patient is in TCU elevated creatinine on admission, nephrology consult, recommended encourage PO intake for prerenal azotemia Pulmonary consulted patient warfarin was reduced yesterday due to blood tinged urine. patient is no longer having blood tinged urine INR 1.16 this morning will increase warfarin to 3mg for today, and start 2mg tomorrow PT evaluation recommended TCU pending TCU case reviewed and discussed with Dr. Newman
--- NOTE | 2018-02-05 08:30 | PN ---
DATE: 02/04/2018 SUBJECTIVE: The patient is currently seen leaving for a planned kyphoplasty with Dr. Marcial Childers. Her creatinine is back to her baseline at 1.1. MEDICATIONS: Medication list reviewed. The patient is currently on Ambien, Brovana is on hold, Carafate, Colace, Coreg, Coumadin, digoxin on hold, insulin, Imdur, oral Lasix, Lidoderm, MiraLax, morphine, Os-Dhaval, prednisone, Protonix, half normal saline 80 mL an hour, Synthroid, Tylenol, Xanax, Zestril, and Zofran p.r.n. OBJECTIVE: INTAKE/OUTPUT: Intake 540, output 1000. VITAL SIGNS: Blood pressure is 145/80, temperature 98, respiratory rate 20 with a pulse of 81. HEENT: Normocephalic, atraumatic. Conjunctivae are pink. Sclerae are nonicteric. NECK: Supple. No neck vein distention. CHEST: Clear to auscultation and percussion. No rales, rhonchi or wheezing. CARDIOVASCULAR: Shows a regular rate and rhythm without murmurs, rubs or gallops. ABDOMEN: Soft. Bowel sounds normal. No rebound, guarding or masses. EXTREMITIES: Show no lower extremity edema. No cyanosis or clubbing. LABORATORY DATA AND IMAGING: CBC, white blood cell count today 4.5, hemoglobin 10.5 with a platelet count of 143,000. Chemistry showed normal electrolytes. BUN is 26, down from a high of 49, this at only her baseline range. Creatinine is down from a high of 2.1 to 1.1, this is at her baseline range. Calcium was 8.9. Phosphorus was low at 2.4 with magnesium level of 1.5. TSH was elevated at 62. The patient is apparently back on Levoxyl at 125 mcg a day. ASSESSMENT: 1. Acute renal failure superimposed on chronic kidney disease stage II. The patient is back to baseline levels. She remains on hydration IV for her procedure today, her kyphoplasty. 2. Status post mild hypokalemia. Potassium level today is excellent at 3.9. 3. History of hypophosphatemia and hypomagnesemia. These will be supplemented. 4. History of low back pain secondary to degenerative disc disease of lumbar sacral spine. The patient is going for her planned kyphoplasty. The patient remains on pain medications. 5. History of congestive heart failure with arteriosclerotic heart disease, currently stable. 6. History of chronic obstructive lung disease, currently stable. PLAN: 1. Continue to monitor labs over the next couple of days. 2. Supplement phosphorus and magnesium in light of the low levels. 3. From my standpoint, may discontinue half normal saline post procedure. 4. Continue present blood pressure medication. 5. Continue low-dose Lasix therapy. Danielito Son MD
[2018-02-05] MEDS ORDERED: POLYETHYLENE GLYCOL 3350 17 GM/Dose PACKET PO SCH (10:00)
[2018-02-05] MEDS: Sucralfate 1 gm/10 ml Oral Susp UD PO SCH (11:03)
[2018-02-05] MEDS: Lidocaine 5% Patch TD SCH (11:04)
[2018-02-05] MEDS: Morphine 15 mg SR Tab PO SCH (11:05)
[2018-02-05] MEDS: Pantoprazole 40 mg EC Tab PO SCH (11:05)
[2018-02-05] MEDS: Magnesium Oxide 400 mg Tab UD PO SCH (11:06)
[2018-02-05] MEDS: Potassium & Sodium Phosphate PO SCH (11:06)
[2018-02-05] MEDS: Calcium-Vit D 250 mg-125 Units Tab UD PO SCH (11:06)
[2018-02-05 11:07] VITALS: BP 112/57; PULSE 79
[2018-02-05 13:10] VITALS: O2SAT 99
--- NOTE | 2018-02-05 14:35 | PN ---
DATE: 02/05/2018 SUBJECTIVE: The patient is seen lying in bed. She is awake. She is alert. She is comfortable. PHYSICAL EXAMINATION: VITAL SIGNS: Blood pressure 112/57, heart rate 79, respiratory rate 18, temperature 98. HEENT: Normocephalic, atraumatic. NECK: Supple, no JVD. LUNGS: Bilateral equal air entry, bilateral equal expansion. EXTREMITIES: No lower extremity edema. INTAKE AND OUTPUT: 2160/1400. LABORATORY DATA: WBC 5.7, hemoglobin 10.4, hematocrit 30, platelets 142. Sodium 133, potassium 3.8, chloride 94, CO2 of 31, BUN 24, creatinine 1.1, glucose 90, calcium 8.7, phosphorus 2.4, magnesium 1.9, albumin 3.4. TSH 62.6. CURRENT MEDICATIONS: Ambien, Brovana, Carafate, Colace, Coreg, Coumadin, digoxin, insulin, mag oxide, Os-Dhaval, prednisone, Synthroid, Tylenol, Xanax, Zestril. ASSESSMENT: 1. Acute kidney injury, mild, resolving. 2. Resolved hypokalemia. 3. Mild hypophosphatemia. 4. Chronic low back pain secondary to disk disease. 5. Congestive heart failure. 6. Chronic obstructive pulmonary disease. PLAN: 1. Start Neutra-Phos. 2. Push p.o. intake. 3. Increase Synthroid. Litzy Ocasio MD
--- NOTE | 2018-02-05 16:18 | PN ---
DATE: 02/05/2018 PULMONARY PROGRESS NOTE REFERRING PHYSICIAN: Dr. Newman. SUBJECTIVE: The patient is sitting side of the bed, having lunch. Night was unremarkable. Feels much better, status post kyphoplasty. Pain is much better. No cough, no sputum production, no nausea, no leg pain or leg swelling. PHYSICAL EXAMINATION: GENERAL: In no acute distress. VITAL SIGNS: Temperature is 98, heart rate is 79, respiratory rate is 16, blood pressure 112/57, pulse ox 99% on room air. HEENT: Moist mucous membrane. Small oral cavity. Crowded airway. NECK: Supple. No JVD. LUNGS: Have a fair airflow with rhonchi. HEART: S1 and S2. ABDOMEN: Soft, nontender. No organomegaly. EXTREMITIES: No edema. NEUROLOGIC: Awake, alert, follows simple command. MEDICATIONS: She is on Ambien 5 mg at bedtime p.r.n., Brovana inhaled twice a day, Carafate 1 g twice a day, Colace 100 mg daily, Coreg 3.125 mg twice a day, Coumadin 3 mg will be given tonight, digoxin 0.125 mg daily, insulin coverage, Imdur 60 mg daily, Lasix 40 mg daily, lidocaine patch daily, magnesium oxide 400 mg twice a day, MiraLax 17 g twice a day, morphine 2 mg every 6 hours p.r.n., morphine extended release 50 mg every 12 hours, Neutra-Phos one pack twice a day, calcium plus vitamin one tablet daily, prednisone is decreased to 7 mg daily, Protonix 40 mg daily, Synthroid 175 mcg daily, Tylenol p.r.n., Xanax 0.125 mg every 8 hours, Zestril 5 mg daily, and Zofran p.r.n. basis. LABORATORY DATA: Shows hemoglobin 10.4, hematocrit 29.9, WBC 5.7, platelet count is 142. INR 1.16. PTT is 31. Sodium 133, potassium 2.8, chloride 94, bicarbonate 31, BUN 24, creatinine 1.1, glucose is 90, calcium is 8.7, phosphorus 2.4, magnesium 1.9. AST 26, ALT is 21, alkaline phosphatase is 130. Albumin is 3.4. IMPRESSION AND PLAN: Chronic obstructive lung disease; obstructive sleep apnea syndrome, noncompliant with CPAP; cardiomyopathy; diabetes; atrial fibrillation; anemia; cardiac arrhythmia requiring pacemaker; seizure disorder; hypothyroid; history of smoking; multiple compression fractures, status post kyphoplasty. Pulmonary point of view, she is doing pretty well. I will suggest to keep prednisone 7 if tolerates okay. Getting steroid-induced complications including osteoporosis, fractures, and high risk for fall. Also, need to continue work to cut down benzodiazepine and pain medication as much possible. Sleep apnea precaution, fall precaution. Thank you and we will follow with you. Cyril Justice MD
--- NOTE | 2018-02-06 02:22 | CON ---
DATE: ENDOCRINOLOGY CONSULTATION LOCATION: Room 370. HISTORY OF PRESENT ILLNESS: This is a 77-year-old female with known history of type 2 diabetes and hypertension, presenting here with severe lower back pain intractable to outpatient pain management, and is being referred now for endocrine evaluation because of abnormal thyroid function studies. PAST MEDICAL HISTORY: As mentioned above, history of type 2 diabetes, on metformin given as 500 mg b.i.d., history of hypertension and dyslipidemia, history of cardiac tachyarrhythmias with chronic atrial fibrillation and previous admissions for congestive heart failure. She has to receive since then a pacemaker and an internal defibrillator as noted. History of sudden onset of severe lower back pain intractable in nature with apparent no relief from [id number] and prescription narcotic analgesics as given. There is a recent evaluation for generalized osteoporosis and the MRI evidence of compression fracture in the lumbar vertebrae. She also has significant history of diffuse osteoarthritis in multiple vertebrae disc levels. History of hypothyroidism, taking levothyroxine at 50 mcg once daily. History of COPD with previous admissions for exacerbations of the same. FAMILY HISTORY: Positive for hypertension and diabetes. SOCIAL HISTORY: The patient is admitted to ongoing nicotine dependence and daily use of cigarettes. REVIEW OF SYSTEMS: As mentioned above, admits to generalized body weakness with episodic bouts of dizziness and lightheadedness, worse on the day of admission. No chest pains or palpitations, but admits to progressive shortness of breath, especially on exertion. Her oral intake has been variable with nausea, dyspepsia and habitual constipation. No recent alterations of bowel and urinary patterns. Admits to severe sudden onset of lower back pain localized in the lumbar vertebral area as noted. Also admits to episodic bouts of painful radiculopathy in both lower extremities. PHYSICAL EXAMINATION: GENERAL: Average built female, in no apparent distress. VITAL SIGNS: Blood pressure of 140/80, pulse of 70 beats per minute and regular, temperature 98, respirations 20, height is 5 feet 2 inches, weight is 126 pounds. HEENT: Head normocephalic. Eyes anicteric with pink conjunctivae. Funduscopy not possible at this time. Ears, nose and throat otherwise normal. NECK: Supple. Thyroid gland is normal in size. No carotid bruits or any cervical adenopathy. CARDIOPULMONARY: Some adynamic precordium. S1 and S2 is rapid and regular. LUNGS: Clear to auscultation. ABDOMEN: Flat, soft, with positive bowel sounds. EXTREMITIES: No peripheral edema. Pulses are +2 bilaterally. LABORATORIES: Her chemistry showed a BUN of 24, sodium 133, potassium 3.8, chloride 94, CO2 of 31, glucose 90, creatinine 1.1. Her TSH is 62.6. ASSESSMENT: This is a 77-year-old female with overt hypothyroidism both historically, clinically and biochemically, most likely related to subtherapeutic levothyroxine replacement therapy with some degree of drug omission as the patient admits to occasional bouts of forgetfulness regarding the intake of her thyroid medications at home. She most likely has underlying autoimmune thyroiditis with no overt palpable thyroid nodules or thyromegaly. PLAN OF MANAGEMENT: We will continue the low-dose correction scale using regular insulin as given and observe her glycemic fluctuations, and if hyperglycemic levels supervene, then we will start her on a low-dose oral hypoglycemic therapy as indicated. We will hold off metformin especially with advanced age of the patient and previous history of nephropathy. We will start her on levothyroxine given at a higher dose of 75 mcg daily before breakfast to start tomorrow morning. With the underlying cardiac tachyarrhythmias and previous history of congestive heart failure, we will be very prudent in giving her a much higher dosing of the levothyroxine replacement therapy to obviate cardiac decompensation. We will discontinue the levothyroxine given as 175 mcg daily as ordered. We will obtain a comprehensive thyroid hormonal profile to include thyroid antibodies, which will confirm and/or indicate the presence of thyroid autoimmunity. We will obtain serial chemistries and supplement accordingly needed. We will follow. Emelia Tracey MD
[2018-02-06] MEDS ORDERED: Levothyroxine 25 MCG TAB PO SCH (06:00)
[2018-02-06] MEDS ORDERED: Levothyroxine 75 MCG TAB PO SCH (06:30)
--- NOTE | 2018-02-06 09:02 | PN ---
DATE: 02/05/2018 SUBJECTIVE: The patient is seen lying in bed. PHYSICAL EXAMINATION: VITAL SIGNS: Blood pressure 112/57, heart rate 79, respiratory rate 16, temperature 98.3. HEENT: Normocephalic, atraumatic, positive pallor. NECK: Supple, no JVD. LUNGS: Bilateral equal air entry, no rales. EXTREMITIES: No lower extremity edema. INTAKE AND OUTPUT: 2160/1400. LABORATORY DATA: WBC 7, hemoglobin 9.5, hematocrit 30, platelets 214. Sodium 142, potassium 4.1, chloride 101, CO2 26, BUN 32, creatinine 6.6, glucose 119, calcium 7, phosphorus 4.7, magnesium 1.8, albumin 4.3. 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 CURRENT MEDICATIONS: Drisdol, Hectorol, insulin, Lipitor, Lopressor, PhosLo, Protonix, Zofran. ASSESSMENT: 1.. End-stage renal disease, secondary to focal segmental glomerulosclerosis, which was untreated. 2. Anemia of chronic kidney disease. 3. Secondary hyperparathyroidism. 4. Hypertension. 5. Hyperphosphatemia. PLAN: 1. Discontinue oral Hectorol. 2. Need outpatient hemodialysis spot. 3. Stable for discharge from renal standpoint. Litzy Ocasio MD
== END 2018-02-05 15:53 | DRG 477 ==
LOC: ED 13:21 → ERH 15:55 → OBSVTOIN 17:54 → ERH 20:34 → 3RSO 21:53
PROVIDERS: ADMIT Family Medicine; ATTEND Family Medicine
PROC: 0QS03ZZ Reposition Lumbar Vertebra, Percutaneous Approach (ICD-10-PCS; principal; 2018-02-04)
PROC: 0QB03ZX Excision of Lumbar Vertebra, Percutaneous Approach, Diagnostic (ICD-10-PCS; 2018-02-04)
PROC: 0QU03JZ Supplement Lumbar Vertebra with Synthetic Substitute, Percutaneous Approach (ICD-10-PCS; 2018-02-04)
DX: M48.56XA Collapsed vertebra, not elsewhere classified, lumbar region, initial encounter for fracture (principal); N18.6 End stage renal disease; N17.9 Acute kidney failure, unspecified; I13.2 Hypertensive heart and chronic kidney disease with heart failure and with stage 5 chronic kidney disease, or end stage renal disease; D68.59 Other primary thrombophilia; F11.20 Opioid dependence, uncomplicated; I69.354 Hemiplegia and hemiparesis following cerebral infarction affecting left non-dominant side; N25.81 Secondary hyperparathyroidism of renal origin; I50.9 Heart failure, unspecified; D50.9 Iron deficiency anemia, unspecified; D63.1 Anemia in chronic kidney disease; E06.3 Autoimmune thyroiditis; E10.22 Type 1 diabetes mellitus with diabetic chronic kidney disease; E10.42 Type 1 diabetes mellitus with diabetic polyneuropathy; E78.5 Hyperlipidemia, unspecified; E83.39 Other disorders of phosphorus metabolism; E86.0 Dehydration; E87.6 Hypokalemia; F17.200 Nicotine dependence, unspecified, uncomplicated; F41.9 Anxiety disorder, unspecified; G40.909 Epilepsy, unspecified, not intractable, without status epilepticus; G47.00 Insomnia, unspecified; G47.33 Obstructive sleep apnea (adult) (pediatric); G89.29 Other chronic pain; I25.10 Atherosclerotic heart disease of native coronary artery without angina pectoris; I25.2 Old myocardial infarction; I25.5 Ischemic cardiomyopathy; I48.2 Chronic atrial fibrillation; J44.9 Chronic obstructive pulmonary disease, unspecified; K59.00 Constipation, unspecified; M46.90 Unspecified inflammatory spondylopathy, site unspecified; M48.061 Spinal stenosis, lumbar region without neurogenic claudication; N26.9 Renal sclerosis, unspecified; T38.0X5A Adverse effect of glucocorticoids and synthetic analogues, initial encounter; W19.XXXA Unspecified fall, initial encounter; Y92.009 Unspecified place in unspecified non-institutional (private) residence as the place of occurrence of the external cause; Z79.01 Long term (current) use of anticoagulants; Z79.4 Long term (current) use of insulin; Z79.52 Long term (current) use of systemic steroids; Z85.3 Personal history of malignant neoplasm of breast; Z90.10 Acquired absence of unspecified breast and nipple; Z91.19 Patient's noncompliance with other medical treatment and regimen; Z95.0 Presence of cardiac pacemaker; Z95.1 Presence of aortocoronary bypass graft; Z95.5 Presence of coronary angioplasty implant and graft; Z95.810 Presence of automatic (implantable) cardiac defibrillator; I08.3 Combined rheumatic disorders of mitral, aortic and tricuspid valves

== ENCOUNTER 2018-02-05 15:53 | Inpatient (IN) | payer MEDICARE, MEDICAID ==
[2018-02-05 16:17] VITALS: RESP 18
[2018-02-05] MEDS ORDERED: Morphine 2 mg/2 mL syringe IVP PRN (16:53)
[2018-02-05] MEDS: Insulin Reg-LOW-Coverage SC SCH ×2 (17:22→21:56)
[2018-02-05] MEDS ORDERED: Morphine 4 mg/ml ISec IVP PRN (17:25)
[2018-02-05] MEDS: POLYETHYLENE GLYCOL 3350 17 GM/Dose PACKET PO SCH (17:41)
[2018-02-05] MEDS: Potassium & Sodium Phosphate PO SCH (18:06)
[2018-02-05] MEDS: Magnesium Oxide 400 mg Tab UD PO SCH (18:06)
[2018-02-05] MEDS: Morphine 15 mg SR Tab PO SCH (21:58)
[2018-02-05] MEDS: Arformoterol 15 mcg/2 ml Inh Sol IH SCH (22:00)
[2018-02-06] MEDS: Levothyroxine 175 MCG TAB PO SCH (05:40)
[2018-02-06] MEDS: Pantoprazole 40 mg EC Tab PO SCH (05:40)
[2018-02-06] MEDS: Insulin Reg-LOW-Coverage SC SCH ×4 (06:47→21:45)
[2018-02-06 08:39] LABS: EOS # 0.1 (0.0-0.7); EOS % 0.9 % (1.5-5.0); GRAN # 5.75 (1.4-6.5); GRAN % 83.4 % (50.0-68.0); HEMOGLOBIN 10.9 g/dL (12.0-16.0); LYMPH # 0.8 (1.2-3.4); LYMPH % 11.5 % (22.0-35.0); MEAN CELL VOLUME 96.9 fl (80.0-105.0); MEAN CORPUSCULAR HEMOGLOBIN 33.6 pg (25.0-35.0); MEAN CORPUSCULAR HGB CONC 34.7 g/dl (31.0-37.0); MEAN PLATELET VOLUME 9.8 fl (7.0-11.0); MONO # 0.3 (0.1-0.6); MONO % 4.2 % (1.0-6.0); RBC 3.24 10^6/uL (3.5-6.1); RED CELL DISTRIBUTION WIDTH 13.7 % (11.5-14.5); WHITE BLOOD COUNT 6.9 10^3/ul (4.5-11.0)
--- NOTE | 2018-02-06 08:53 | CP.PCM.CON ---
History of Present Illness - History of Present Illness History of Present Illness: I feel okay, denies chest pain and shortness of breath Reason for consult: Continuity of care in TCU. Initially admitted for intractable back pain due to lumbar fracture unrelieved with oral pain medicines. L1 Kyphoplasty which relieved some of the back pain, history of breast cancer with mastectomy, Atrial fibrillation, AICD/PPM, seizure disorder , COPD,cardiomyopathy,steroid induced osteoporosis, IDDM, hyperthyroidism, now transferred to TCU for deconditioning Review of Systems - Review of Systems Review of Systems: no distress - Breasts Additional comments: history of mastectomy - Cardiovascular Additional comments: denies chest pain, denies shortness of breath - Respiratory Additional comments: denies dyspnea, - Gastrointestinal Additional comments: denies nausea and vomiting, addomen soft non tender - Genitourinary Genitourinary: Difficulty Urinating Additional comments: with cordova catheter - Reproductive: Female Reproductive:Female: Post Menopausal - Musculoskeletal Musculoskeletal: Back Pain - Integumentary Additional comments: no lesions or rashes - Neurological Additional comments: weakness on lower extremities Past Patient History - Infectious Disease Hx of Infectious Diseases: None - Tetanus Immunizations Tetanus Immunization: Unknown - Past Social History Smoking Status: Former Smoker - CARDIAC Hx Cardiac Disorders: Yes Hx Congestive Heart Failure: Yes Hx Hypertension: Yes - PULMONARY Hx Chronic Obstructive Pulmonary Disease (COPD): Yes - NEUROLOGICAL HX Cerebrovascular Accident: Yes - HEENT Hx HEENT Problems: Yes Hx Cataracts: Yes (sx b/l) Other/Comment: eye glasses - RENAL Hx Renal Failure: No (denied) - ENDOCRINE/METABOLIC Hx Diabetes Mellitus Type 1: Yes Hx Diabetes Mellitus Type 2: Yes Hx Hypothyroidism: Yes - HEMATOLOGICAL/ONCOLOGICAL Hx Blood Disorders: Yes Hx Anemia: Yes (iron deficiency-IRON INFUSIONS) - INTEGUMENTARY Hx Dermatological Problems: No - MUSCULOSKELETAL/RHEUMATOLOGICAL Hx Arthritis: Yes Hx Falls: Yes - GASTROINTESTINAL Hx Gastrointestinal Disorders: Yes (gastritis/ hiatal hernia, gi bleed) Hx Pancreatitis: Yes Other/Comment: hiatal hernia:GI Bleed;gastritis - GENITOURINARY/GYNECOLOGICAL Hx Genitourinary Disorders: No - PSYCHIATRIC Hx Psychophysiologic Disorder: Yes (SMOKES 5 CIG A DAY. SMOKED FOR 50 YRS) Hx Anxiety: Yes Hx Depression: Yes - SURGICAL HISTORY Hx Surgeries: Yes - ANESTHESIA Hx Anesthesia Reactions: No Hx Malignant Hyperthermia: No Meds Allergies/Adverse Reactions: Allergies Allergy/AdvReac Type Severity Reaction Status Date / Time Sulfa (Sulfonamide Allergy Mild RASH Verified 01/29/18 15:09 Antibiotics) - Medications Medications: Current Medications Alprazolam (Xanax) 0.125 mg PO Q8H PRN; Protocol PRN Reason: Anxiety Stop: 02/12/18 16:10 Arformoterol Tartrate (Brovana) 15 mcg IH [id number] [facility] PRN Reason: Protocol Last Admin: 02/05/18 22:00 Dose: Not Given Calcium/Vitamin D (Oscal-D 250 Mg-125 Units Tab) 1 tab PO DAILY [facility] PRN Reason: Protocol Carvedilol (Coreg) 3.125 mg PO 0800,1800 [facility] PRN Reason: Protocol Last Admin: 02/05/18 17:22 Dose: Not Given Docusate Sodium (Colace) 100 mg PO DAILY [facility] PRN Reason: Protocol Furosemide (Lasix) 40 mg PO 0630 [facility] PRN Reason: Protocol Last Admin: 02/06/18 05:40 Dose: 40 mg Insulin Human Regular (Humulin R Low) 0 units SC ACHS [facility] PRN Reason: Protocol Last Admin: 02/06/18 06:47 Dose: Not Given Isosorbide Mononitrate (Imdur) 60 mg PO 0630 [facility] PRN Reason: Protocol Last Admin: 02/06/18 05:39 Dose: 60 mg Levothyroxine Sodium (Synthroid) 175 mcg PO 0600 [facility] PRN Reason: Protocol Last Admin: 02/06/18 05:40 Dose: 175 mcg Lidocaine (Lidoderm) 2 ea TD DAILY [facility] PRN Reason: Protocol Lisinopril (Zestril) 5 mg PO DAILY [facility] PRN Reason: Protocol Magnesium Oxide (Mag-Ox) 400 mg PO BID [facility] PRN Reason: Protocol Last Admin: 02/05/18 18:06 Dose: 400 mg Morphine Sulfate (Morphine Extended Release Tab) 15 mg PO 1000,2200 [facility] PRN Reason: Protocol Last Admin: 02/05/18 21:58 Dose: 15 mg Morphine Sulfate (Morphine) 2 mg IVP Q6 PRN; Protocol PRN Reason: PAIN,SEVERE [8-10] Ondansetron HCl (Zofran Inj) 4 mg IVP Q6H PRN; Protocol PRN Reason: Nausea/Vomiting Pantoprazole Sodium (Protonix Ec Tab) 40 mg PO 0600 [facility] PRN Reason: Protocol Last Admin: 02/06/18 05:40 Dose: 40 mg Polyethylene Glycol (Miralax) 17 gm PO BID [facility] PRN Reason: Protocol Last Admin: 02/05/18 17:41 Dose: Not Given Potassium Phos/Sodium Phos (Neutra-Phos) 1 pkt PO BID [facility] PRN Reason: Protocol Last Admin: 02/05/18 18:06 Dose: 1 pkt Prednisone (Prednisone Tab) 7 mg PO 0800 [facility] PRN Reason: Protocol Sucralfate (Carafate Tab) 1 gm PO 0600,2000 [facility] PRN Reason: Protocol Last Admin: 02/06/18 05:39 Dose: 1 gm Warfarin Sodium (Coumadin) 2 mg PO 1800 [facility] PRN Reason: Protocol Zolpidem Tartrate (Ambien) 10 mg PO HS [facility] PRN Reason: Protocol Last Admin: 02/05/18 23:59 Dose: Not Given Physical Exam - Constitutional Appears: No Acute Distress - Eye Exam Eye Exam: Normal appearance - ENT Exam ENT Exam: Mucous Membranes Moist - Respiratory Exam Respiratory Exam: Decreased Breath Sounds, Clear to Auscultation Bilateral, NORMAL BREATHING PATTERN - Cardiovascular Exam Cardiovascular Exam: +S1, +S2 Additional comments: No JVD - GI/Abdominal Exam GI & Abdominal Exam: Normal Bowel Sounds, Soft - Extremities Exam Extremities exam: Positive for: normal capillary refill - Neurological Exam Neurological exam: Alert, Oriented x3 - Psychiatric Exam Psychiatric exam: Normal Affect, Normal Mood - Skin Skin Exam: Intact, Normal Color, Warm Results - Vital Signs Recent Vital Signs: Last Vital Signs Temp 98.2 F 02/05/18 16:05 Pulse 80 02/05/18 17:22 Resp 18 02/05/18 16:05 BP 103/64 02/06/18 05:40 Pulse Ox - Labs Result Diagrams: 02/06/18 08:30 Labs: Laboratory Results - last 24 hr 02/05/18 02/06/18 02/06/18 21:46 04:38 08:30 WBC 6.9 D RBC 3.24 L Hgb 10.9 L Hct 31.4 L MCV 96.9 MCH 33.6 MCHC 34.7 RDW 13.7 Plt Count 168 MPV 9.8 Gran % 83.4 H Lymph % (Auto) 11.5 L Crowley % (Auto) 4.2 Eos % (Auto) 0.9 L Baso % (Auto) 0.0 Gran # 5.75 Lymph # (Auto) 0.8 L Crowley # (Auto) 0.3 Eos # (Auto) 0.1 Baso # (Auto) 0.00 POC Glucose (mg/dL) 115 H 89 Assessment & Plan - Assessment and Plan (Free Text) Assessment: IMPRESSION: Deconditioning, continuity of care in TCU. Initially admitted for intractable back pain due to lumbar fracture unrelieved with oral pain medicines. L1 Kyphoplasty which relieved some of the back pain, history of breast cancer with mastectomy, Atrial fibrillation, AICD/PPM, seizure disorder COPD,cardiomyopathy,steroid induced osteoporosis, hyperthyroidism,IDDM. Plan: Physical therapy Cardiac status stable Back pain better after kyphoplasty Continue Coreg 3.125 mg BID,Lasix 40 mg daily,Imdur 60 mg daily,Zestril 5 mg daily Coumadin 2 mg OD, Synthroid 175 mcg daily Stable blood pressure Continue current medications Continue current treatment Will repeat TSH level in few days Will follow up Plan and treatment discussed with Dr. Naranjo - Date & Time Date: 02/06/18 Time: 06:50
[2018-02-06 09:01] LABS: ALB/GLOB RATIO 1.3 (1.1-1.8); ALBUMIN 3.6 g/dL (3.0-4.8)
[2018-02-06] MEDS: Arformoterol 15 mcg/2 ml Inh Sol IH SCH ×3 (09:15→20:22)
--- NOTE | 2018-02-06 10:03 | CP.PCM.PN ---
Subjective - Date & Time of Evaluation Date of Evaluation: 02/06/18 Time of Evaluation: 09:00 - Subjective Subjective: PGY-[address] Newman's service Patient seen and examined at bedside in TCU. No acute distress. Patient states that her back pain is a 3/10. She states that she is ready to go home. She in encouraged to participate in PT. She continues to have cordova in place. She denies abd pain, N/V and is tolerating her diet. She denies fever, chills, dizziness, chest pain, sob. Objective - Vital Signs/Intake and Output Vital Signs (last 24 hours): Temp Pulse Resp BP Pulse Ox 98.2 F 80 18 59/47 L 02/05/18 16:05 02/05/18 17:22 02/05/18 16:05 02/06/18 09:01 Intake and Output: 02/06/18 02/06/18 06:59 18:59 Intake Total 240 Output Total 300 Balance -60 - Medications Medications: Current Medications Alprazolam (Xanax) 0.125 mg PO Q8H PRN; Protocol PRN Reason: Anxiety Stop: 02/12/18 16:10 Arformoterol Tartrate (Brovana) 15 mcg IH [id number] HECTOR PRN Reason: Protocol Last Admin: 02/06/18 09:19 Dose: Not Given Calcium/Vitamin D (Oscal-D 250 Mg-125 Units Tab) 1 tab PO DAILY HECTOR PRN Reason: Protocol Carvedilol (Coreg) 3.125 mg PO 0800,1800 HECTOR PRN Reason: Protocol Last Admin: 02/06/18 09:01 Dose: Not Given Docusate Sodium (Colace) 100 mg PO DAILY HECTOR PRN Reason: Protocol Furosemide (Lasix) 40 mg PO 0630 HECTOR PRN Reason: Protocol Last Admin: 02/06/18 05:40 Dose: 40 mg Insulin Human Regular (Humulin R Low) 0 units SC ACHS HECTOR PRN Reason: Protocol Last Admin: 02/06/18 06:47 Dose: Not Given Isosorbide Mononitrate (Imdur) 60 mg PO 0630 HECTOR PRN Reason: Protocol Last Admin: 02/06/18 05:39 Dose: 60 mg Levothyroxine Sodium (Synthroid) 175 mcg PO 0600 HECTOR PRN Reason: Protocol Last Admin: 02/06/18 05:40 Dose: 175 mcg Lidocaine (Lidoderm) 2 ea TD DAILY HECTOR PRN Reason: Protocol Lisinopril (Zestril) 5 mg PO DAILY HECTOR PRN Reason: Protocol Magnesium Oxide (Mag-Ox) 400 mg PO BID HECTOR PRN Reason: Protocol Last Admin: 02/05/18 18:06 Dose: 400 mg Morphine Sulfate (Morphine Extended Release Tab) 15 mg PO 1000,2200 [facility] PRN Reason: Protocol Last Admin: 02/05/18 21:58 Dose: 15 mg Morphine Sulfate (Morphine) 2 mg IVP Q6 PRN; Protocol PRN Reason: PAIN,SEVERE [8-10] Ondansetron HCl (Zofran Inj) 4 mg IVP Q6H PRN; Protocol PRN Reason: Nausea/Vomiting Pantoprazole Sodium (Protonix Ec Tab) 40 mg PO 0600 [facility] PRN Reason: Protocol Last Admin: 02/06/18 05:40 Dose: 40 mg Polyethylene Glycol (Miralax) 17 gm PO BID [facility] PRN Reason: Protocol Last Admin: 02/05/18 17:41 Dose: Not Given Potassium Phos/Sodium Phos (Neutra-Phos) 1 pkt PO BID [facility] PRN Reason: Protocol Last Admin: 02/05/18 18:06 Dose: 1 pkt Prednisone (Prednisone Tab) 7 mg PO 0800 [facility] PRN Reason: Protocol Sucralfate (Carafate Tab) 1 gm PO 0600,2000 [facility] PRN Reason: Protocol Last Admin: 02/06/18 05:39 Dose: 1 gm Warfarin Sodium (Coumadin) 2 mg PO 1800 [facility] PRN Reason: Protocol Zolpidem Tartrate (Ambien) 10 mg PO HS [facility] PRN Reason: Protocol Last Admin: 02/05/18 23:59 Dose: Not Given - Labs Labs: 02/06/18 08:30 02/06/18 08:30 - Constitutional Appears: No Acute Distress - Head Exam Head Exam: ATRAUMATIC, NORMOCEPHALIC - Eye Exam Eye Exam: Normal appearance - ENT Exam ENT Exam: Mucous Membranes Moist - Respiratory Exam Respiratory Exam: Clear to Ausculation Bilateral, NORMAL BREATHING PATTERN. absent: Decreased Breath Sounds, Rales, Rhonchi, Wheezes, Respiratory Distress - Cardiovascular Exam Cardiovascular Exam: REGULAR RHYTHM, +S1, +S2. absent: Bradycardia, Tachycardia , Murmur - GI/Abdominal Exam GI & Abdominal Exam: Soft, Normal Bowel Sounds. absent: Distended, Firm, Tenderness - Extremities Exam Extremities Exam: Normal Inspection. absent: Pedal Edema, Tenderness - Neurological Exam Neurological Exam: Alert, Awake, Oriented x3 - Skin Skin Exam: Dry, Intact, Normal Color, Warm Assessment and Plan - Assessment and Plan (Free Text) Assessment: 77 yo female with PMH of CHF, CPOD, diabetes, a. fib, iron deficiency anemia, pacemaker, defibrillator, CAD, seizure , hypothyroidism presented with intractable back pain with compression fracture unrelieved by oral narcotic. Patient is s/p kyphoplasty. compression fracture of L1 urinary retention copd CHF CPOD diabetes A. fib iron deficiency anemia Plan: CT lumbar spine showed minimal compression fracture of L1, multilevel degenerative disc disease without severe stenosis, mild central stenosis at L4- 5 bone scan was done showed old fracture of L1 IR consulted patient s/p kyphoplasty POD #2 Continue pain managements with morphine ER 15mg q12 and Morphine 2mg q6h continue lidoderm patch ISS with finger stick achs Cardiology consulted, h/o pacemaker, cad, chf Echo showed EF of 40-45%, moderate aortic stenosis Synthriod was increased due to elevated TSH levels, repeat TSH is down trending urinary retention, s/p Cordova catheter inserted d/c cordova will continue to monitor for urinary retention, bladder scan prn yesterday INR was 1.16 and warfarin to 3mg for today, will start warfarin 2mg today continue PT case reviewed and discussed with Dr. Newman
[2018-02-06] MEDS: Lidocaine 5% Patch TD SCH (10:24)
[2018-02-06] MEDS: POLYETHYLENE GLYCOL 3350 17 GM/Dose PACKET PO SCH ×2 (10:25→17:47)
[2018-02-06] MEDS: Magnesium Oxide 400 mg Tab UD PO SCH ×2 (10:25→17:47)
[2018-02-06] MEDS: Morphine 15 mg SR Tab PO SCH ×2 (10:27→21:42)
[2018-02-06] MEDS: Potassium & Sodium Phosphate PO SCH ×2 (10:27→17:47)
[2018-02-06] MEDS: Calcium-Vit D 250 mg-125 Units Tab UD PO SCH (10:27)
[2018-02-06 11:38] LABS: INR 1.04 (0.93-1.08)
[2018-02-06] MEDS ORDERED: Morphine 2 mg/2 mL syringe IVP PRN (13:36)
--- NOTE | 2018-02-06 19:32 | PN ---
DATE: 02/06/2018 ENDOCRINOLOGY FOLLOWUP NOTE LOCATION: In room 313. SUBJECTIVE: This is a 77-year-old female with intractable lower back pain despite outpatient medical pain management and also epidural injections and yet continues to have the lower back pain as noted thereof. She is being followed closely also along for recent management of overt hypothyroidism, most likely related to drug omission as noted. There was a correction as to her previous dosing because the prior medical record in the medical floor showed that she was only taking low-dose levothyroxine given as 50 mcg daily, but it was clarified that she was actually taking levothyroxine 150 mcg daily as noted. However, we need to see the documentation thereof. She remains hemodynamically stable at this time. Her latest chemistries showed a BUN of 29, sodium 133, potassium 3.94, CO2 of 31, glucose 143 and creatinine 1.2 with glucose levels have ranged from 89 to mg/dL. The last TSH is 62.6. ASSESSMENT: A 77-year-old female with overt hypothyroidism both historically and biochemically related to drug omission with concomitant underlying autoimmune thyroiditis as noted thereof. There are no overt palpable thyroid nodules at this time present. PLAN OF MANAGEMENT: As discussed with the patient and the staff. We will continue the levothyroxine given as 175 mcg daily as ordered. We will titrate incrementally as indicated to optimize metabolic control. We will obtain serial chemistries and supplement accordingly as needed. We will also obtain thyroid antibodies to include a thyroid peroxidase and thyroglobulin antibody, which will confirm and/or indicate the presence of underlying thyroid autoimmunity. We will obtain serial chemistries and supplement accordingly as needed. We will follow. Emelia Tracey MD
[2018-02-07] MEDS: Pantoprazole 40 mg EC Tab PO SCH (05:32)
[2018-02-07] MEDS: Levothyroxine 175 MCG TAB PO SCH (05:32)
--- NOTE | 2018-02-07 06:01 | CP.PCM.PN ---
Subjective - Date & Time of Evaluation Date of Evaluation: 02/07/18 Time of Evaluation: 07:05 - Subjective Subjective: Lying in bed, comfortable, easily awaken, denies shortness of breath,denies chest pain Reason for consult and follow up: Continuity of care in TCU, Atrial fibrillation, AICD/PPM, seizure disorder ,COPD,cardiomyopathy, Seen and examined by me and Dr. Naranjo Objective - Vital Signs/Intake and Output Vital Signs (last 24 hours): Temp Pulse Resp BP Pulse Ox 98.2 F 81 18 102/52 L 95 02/06/18 17:57 02/06/18 17:57 02/06/18 17:57 02/07/18 05:32 02/06/18 17:57 Intake and Output: 02/06/18 02/07/18 18:59 06:59 Intake Total 240 240 Output Total 400 400 Balance -160 -160 - Medications Medications: Current Medications Alprazolam (Xanax) 0.125 mg PO Q8H PRN; Protocol PRN Reason: Anxiety Stop: 02/12/18 16:10 Arformoterol Tartrate (Brovana) 15 mcg IH [id number] HECTOR PRN Reason: Protocol Last Admin: 02/06/18 20:22 Dose: Not Given Calcium/Vitamin D (Oscal-D 250 Mg-125 Units Tab) 1 tab PO DAILY HECTOR PRN Reason: Protocol Last Admin: 02/06/18 10:27 Dose: 1 tab Carvedilol (Coreg) 3.125 mg PO 0800,1800 HECTOR PRN Reason: Protocol Last Admin: 02/06/18 17:46 Dose: Not Given Docusate Sodium (Colace) 100 mg PO DAILY HECTOR PRN Reason: Protocol Last Admin: 02/06/18 10:24 Dose: 100 mg Furosemide (Lasix) 40 mg PO 0630 HECTOR PRN Reason: Protocol Last Admin: 02/07/18 05:32 Dose: 40 mg Insulin Human Regular (Humulin R Low) 0 units SC ACHS HECTOR PRN Reason: Protocol Last Admin: 02/06/18 21:45 Dose: Not Given Isosorbide Mononitrate (Imdur) 60 mg PO 0630 HECTOR PRN Reason: Protocol Last Admin: 02/07/18 05:32 Dose: 60 mg Levothyroxine Sodium (Synthroid) 175 mcg PO 0600 [facility]ECTOR PRN Reason: Protocol Last Admin: 02/07/18 05:32 Dose: 175 mcg Lidocaine (Lidoderm) 2 ea TD DAILY HECTOR PRN Reason: Protocol Last Admin: 02/06/18 10:24 Dose: 2 ea Lisinopril (Zestril) 5 mg PO DAILY HECTOR PRN Reason: Protocol Last Admin: 02/06/18 10:28 Dose: Not Given Magnesium Oxide (Mag-Ox) 400 mg PO BID HECTOR PRN Reason: Protocol Last Admin: 02/06/18 17:47 Dose: 400 mg Morphine Sulfate (Morphine Extended Release Tab) 15 mg PO 1000,2200 HECTOR PRN Reason: Protocol Last Admin: 02/06/18 21:42 Dose: 15 mg Morphine Sulfate (Morphine) 2 mg IVP Q6 PRN; Protocol PRN Reason: PAIN,SEVERE [8-10] Ondansetron HCl (Zofran Inj) 4 mg IVP Q6H PRN; Protocol PRN Reason: Nausea/Vomiting Pantoprazole Sodium (Protonix Ec Tab) 40 mg PO 0600 HECTOR PRN Reason: Protocol Last Admin: 02/07/18 05:32 Dose: 40 mg Polyethylene Glycol (Miralax) 17 gm PO BID HECTOR PRN Reason: Protocol Last Admin: 02/06/18 17:47 Dose: 17 gm Potassium Phos/Sodium Phos (Neutra-Phos) 1 pkt PO BID HECTOR PRN Reason: Protocol Last Admin: 02/06/18 17:47 Dose: 1 pkt Prednisone (Prednisone Tab) 7 mg PO 0800 HECTOR PRN Reason: Protocol Sucralfate (Carafate Tab) 1 gm PO 0600,2000 HECTOR PRN Reason: Protocol Last Admin: 02/07/18 05:32 Dose: 1 gm Warfarin Sodium (Coumadin) 2 mg PO 1800 HECTOR PRN Reason: Protocol Last Admin: 02/06/18 17:46 Dose: 2 mg Zolpidem Tartrate (Ambien) 10 mg PO HS HECTOR PRN Reason: Protocol Last Admin: 02/06/18 21:41 Dose: 10 mg - Labs Labs: 02/06/18 08:30 02/06/18 08:30 PT 12.0 SECONDS (9.4-12.5) 02/06/18 11:00 INR 1.04 (0.93-1.08) 02/06/18 11:00 - Constitutional Appears: No Acute Distress - Head Exam Head Exam: NORMAL INSPECTION, NORMOCEPHALIC - Eye Exam Eye Exam: Normal appearance - ENT Exam ENT Exam: Mucous Membranes Moist - Respiratory Exam Respiratory Exam: Clear to Ausculation Bilateral, NORMAL BREATHING PATTERN - Cardiovascular Exam Cardiovascular Exam: +S1, +S2 Additional comments: Left subclavian AICD/PPM, right subclavian vanessa cath - GI/Abdominal Exam GI & Abdominal Exam: Soft, Normal Bowel Sounds - Extremities Exam Extremities Exam: Normal Capillary Refill - Back Exam Additional comments: mild to moderate back pain - Neurological Exam Neurological Exam: Alert, Awake, Oriented x3 - Psychiatric Exam Psychiatric exam: Normal Affect, Normal Mood - Skin Skin Exam: Intact, Normal Color, Warm Assessment and Plan - Assessment and Plan (Free Text) Assessment: Continuity of care in TCU. Initially admitted for intractable back pain due to lumbar fracture unrelieved with oral pain medicines. L1 Kyphoplasty which relieved some of the back pain, history of breast cancer with mastectomy, Atrial fibrillation, AICD/PPM, seizure disorder ,COPD,cardiomyopathy,steroid induced osteoporosis, IDDM, hyperthyroidism, now transferred to TCU for deconditioning Plan: Cardiac status stable Back pain better after kyphoplasty Continue Coreg 3.125 mg BID,Lasix 40 mg daily,Imdur 60 mg daily,Zestril 5 mg daily Coumadin 2 mg OD, Synthroid 175 mcg daily Stable blood pressure Physical therapy Continue current medications Continue current treatment Endocrine on consult for elevated TSH Will follow up Plan and treatment discussed with Dr. Naranjo
[2018-02-07] MEDS: Insulin Reg-LOW-Coverage SC SCH ×4 (06:31→21:42)
[2018-02-07 07:04] LABS: ALB/GLOB RATIO 1.3 (1.1-1.8); ALBUMIN 3.4 g/dL (3.0-4.8); CALCIUM 8.8 mg/dL (8.4-10.5)
[2018-02-07 07:05] LABS: FREE T4 1.2 ng/dL (0.78-2.19); T4 7.1 ug/dL (5.5-11.0)
[2018-02-07] MEDS: Arformoterol 15 mcg/2 ml Inh Sol IH SCH ×2 (07:30→21:09)
--- NOTE | 2018-02-07 11:02 | CON ---
DATE: 02/06/2018 PULMONARY CONSULTATION REFERRING PHYSICIAN: Niall Vega MD. REASON FOR CONSULTATION: Chronic lung disease, steroids dependent. She also has sleep apnea syndrome, refused CPAP. HISTORY OF PRESENT ILLNESS: This is a 77-year-old female, well known to me from office on previous admission, with a known history of chronic lung disease, obstructive sleep apnea syndrome, severe anemia, history of GI angiodysplasia with recurrent bleed, requiring transfusion in the past; cardiac arrhythmia, has a pacemaker; chronic lung disease, diabetes, peripheral neuropathy, history of breast cancer with mastectomy, multiple compression fractures, history of strokes, [place], history of steroids, opiates and benzodiazepine dependent, presently admitted on TICU for continued care. She is lying in the bed, head at 45 degrees. Night was unremarkable. Short of breath, exertion. No chest pain. No nausea. No vomiting. No abdominal pain. No dysuria. No leg pain or leg swelling. PAST MEDICAL HISTORY: As per history present illness. ALLERGIES: TO SULFA. SOCIAL HISTORY: She is a smoker. Denying any alcohol use. FAMILY HISTORY: No significant cardiopulmonary disease reported. MEDICATIONS: She is on Ambien 10 mg at bedtime p.r.n., Brovana inhaled twice a day, Carafate 1 g twice a day, Colace 100 mg daily, Coreg 3.125 mg twice a day, Coumadin 2 mg given tonight, insulin coverage, Imdur 60 mg daily, Lasix 40 mg daily, lidocaine patch to the affected area, magnesium oxide 400 mg twice a day, MiraLax 17 g twice a day, morphine 2 mg every 6 hours p.r.n., also morphine extended release 15 mg twice a day, K-Phos 1 pack twice a day, calcium/vitamin D 1 tablet daily, prednisone 7 mg daily, Protonix 40 mg daily, Synthroid 175 mcg daily, Xanax 0.125 mg every 8 hours p.r.n., Zestril 5 mg daily and Zofran p.r.n. basis. REVIEW OF SYSTEMS: No headache. No rhinitis. No cough. No chest pain. Short of breath with exertion. No nausea. No leg pain, no leg swelling. PHYSICAL EXAMINATION: GENERAL: Lying in the bed, in no acute distress. VITAL SIGNS: Temp is 98, heart rate 81, respiratory rate is 18, blood pressure 95/51, pulse ox 95% on room air. HEENT: Moist mucous membranes. No ulcer or thrush noted. NECK: Supple. No JVD. LUNGS: Have a few scattered rhonchi. HEART: S1 and S2. ABDOMEN: Soft, nontender. No organomegaly. EXTREMITIES: No edema. NEUROLOGIC: Awake, alert. Follows simple command. LABORATORY DATA: Shows hemoglobin 10.9, hematocrit 31.4, WBC 6.9, platelet count is 168. INR 1.04. Sodium 133, potassium 3.8, chloride 94, bicarbonate 31, BUN 29, creatinine 1.2, glucose 143 and calcium 9. AST 25, ALT 30, alk phos is 156. Albumin is 3.6. IMPRESSION AND PLAN: Chronic obstructive lung disease, obstructive sleep apnea syndrome, noncompliant with the continuous positive airway pressure, cardiomyopathy, diabetes, atrial fibrillation, anemia, cardiac arrhythmia requiring pacemaker, seizure disorder, hypothyroid, history of active smoking, vertebral compression fracture status post kyphoplasty. Pulmonary point of view, we will continue to see if we can try to decrease as much prednisone as possible. Continue close monitor of hypotension, bronchodilator, pain management. Fall precaution, sleep apnea precaution. Thank you and we will follow with you. Cyrli Justice MD
[2018-02-07] MEDS: Magnesium Oxide 400 mg Tab UD PO SCH ×2 (11:08→17:42)
[2018-02-07] MEDS: Lidocaine 5% Patch TD SCH (11:08)
[2018-02-07] MEDS: POLYETHYLENE GLYCOL 3350 17 GM/Dose PACKET PO SCH ×2 (11:09→17:42)
[2018-02-07] MEDS: Calcium-Vit D 250 mg-125 Units Tab UD PO SCH (11:10)
[2018-02-07] MEDS: Potassium & Sodium Phosphate PO SCH ×2 (11:10→17:43)
[2018-02-07] MEDS: Morphine 15 mg SR Tab PO SCH ×2 (11:15→21:41)
[2018-02-07 18:03] VITALS: TEMP 98.6; O2SAT 99
--- NOTE | 2018-02-07 18:45 | PN ---
DATE: 02/07/2018 This is Franchesca Ohara's hospital visit on the TCU floor. For Dr. Newman. SUBJECTIVE: The patient is a 77-year-old female, now seen on the TCU floor for reconditioning after significant improvement in her presentation for which she was hospitalized initially with her pain now better. At this time, as when she was admitted, she had signed against medical advice initially and then came back next day due to severe intractable back pain with significant anemic indices with compression fractures noted. The patient also has significant cardiovascular issues with a pacer, prosthetic metallic stent and hypocoagulable state. At present, she is participating with reconditioning and is anxious to go home to take care of her pets. OBJECTIVE: VITAL SIGNS: Temperature 98.1, pulse 80, respirations 18, blood pressure 119/56, pulse ox 98%. HEENT: Unremarkable. NECK: Supple. HEART: Regular rate. LUNGS: Rare rhonchi. ABDOMEN: Soft, nontender. EXTREMITIES: No edema. SKIN: Warm and dry. NEUROLOGIC: Awake and alert with decreased pain to range of motion to low back. LABORATORY DATA: Patient's labs were done yesterday with a white blood cell count of 6.9, hemoglobin 10.9, hematocrit of 31.4, platelet count of 168,000 with INR yesterday of 1.04 with chem metabolic panel showing a BUN of 29, creatinine of 1.2 with a TSH of 60.6. ASSESSMENT: The assessment for this patient is that of deconditioning; hypothyroidism; hypertension; chronic obstructive pulmonary disease; atherosclerotic cardiovascular disease, stats post stenting; anticoagulation on Coumadin for history of atrial fibrillation. The patient also has a pacemaker. PLAN: The plan for this patient after conversation with Dr. Newman is to continue present medical regimen with her Synthroid adjusted as per Dr. Emelia Tracey, Endocrinology. We will monitor her PT/INR with adjustment of her Coumadin dose as indicated with discharged home once the patient is stable. The prognosis for this patient is guarded. We will monitor clinically and with labs. INR not therapeutic, will give Coumadin 10mg tonight, check in am. This is a complex patient with a comprehensive medically necessary and appropriate visit carried out in excess of 30 minutes [id number] time with recommendations as above. Niall MD Gary Daniel # [id number] MARLON
--- NOTE | 2018-02-07 21:28 | PN ---
DATE: 02/07/2018 ENDOCRINOLOGY FOLLOWUP NOTE LOCATION: In room 313, [facility]. SUBJECTIVE: This is a 77-year-old female with intractable lower back pain and concomitant COPD and is now being followed closely for metabolic management. She also has overt hypothyroidism both historically, clinically, and biochemically as noted. Her latest chemistry shows a BUN of 29. Sodium 135, potassium 3.9, chloride 94, CO2 of 34. Glucose 90. Creatinine 1.2. Repeat thyroid study shows a T4 of 7.1 with a TSH of 60.6 and a free T4 of 1.20. Her latest glucose levels have ranged from mg/dL. ASSESSMENT: This is a 77-year-old female with overt hypothyroidism, noted historically, clinically, and biochemically; most likely related to recent drug omission and resulting in marked accelerations of the TSH values as expected. She also has intractable lower back pain as noted with underlying diffuse osteoarthritis and osteoporosis as noted thereof. PLAN OF MANAGEMENT: As discussed with the patient is that we will continue the same levothyroxine given as 175 mcg once daily as ordered. It takes 4 to 6 weeks for dose equilibration, so the modified dose was given and ordered. We will obtain serial chemistries and supplement accordingly as needed. We will follow up. Emelia Tracey MD
--- NOTE | 2018-02-07 23:02 | PN ---
DATE: 02/07/2018 PULMONARY PROGRESS NOTE REFERRING PHYSICIAN: Niall Vega MD SUBJECTIVE: The patient is lying in the bed, head at 45 degrees, sleepy, arousable, done well in therapy today, short of breath with exertion. No nausea, no vomiting. No diarrhea. No leg pain or leg swelling. OBJECTIVE: GENERAL: In no distress. VITAL SIGNS: Temperature is 98, heart rate is 80, respiratory rate is 18, blood pressure 119/56, pulse of 93% room air. HEENT: Moist mucous membranes. No ulcer or thrush noted. NECK: Supple. No JVD. LUNGS: Fair airflow with rhonchi. HEART: S1, S2. ABDOMEN: Soft, nontender, no organomegaly. EXTREMITIES: No edema. NEUROLOGIC: Awake and follows simple commands. MEDICATIONS: She is on Ambien 10 mg at bedtime p.r.n., Brovana inhaled twice a day, Carafate 1 g twice a day, Colace 100 mg daily, Coreg 3.125 mg twice a day, Coumadin 10 mg will be given today, insulin coverage, Imdur 60 mg daily, Lasix 40 mg daily, Lidoderm patch at affected area, mag oxide 40 mg twice a day, MiraLax 17 g twice a day, morphine 2 mg every 6 hours p.r.n. and morphine extended release 50 mg every 12 hours, K-Phos one pack twice a day, calcium plus vitamin D one tablet daily, prednisone mg daily, Protonix 40 mg daily, Synthroid 175 mcg daily, Xanax 0.125 mg every 8 hours p.r.n., Zestril 5 mg daily, Zofran p.r.n. basis. LABORATORY DATA: Reviewed and noted. Sodium 135, potassium 3.9, chloride 94, bicarbonate 34. BUN 29, creatinine 1.2. Glucose 90. Calcium is 8.8. AST 23, ALT 27, alk phos is 147. Albumin is 3.4. TSH is 60. IMPRESSION AND PLAN: Chronic obstructive lung disease, obstructive sleep apnea syndrome, noncompliant with CPAP, diabetes, atrial fibrillation, anemia, cardiac arrhythmia requiring pacemaker, seizure disorder, hypothyroid, active smoker, vertebral compression fracture, status post kyphoplasty, activities of daily living dysfunction. Pulmonary point view, doing okay. We will continue bronchodilator. Keep head at 45 degrees. Sleep apnea precaution. Continue prednisone for now. Being followed by Endocrinology. Slowly need to decrease prednisone a little bit, she had been on it for years now. Definitely has renal insufficiency. Thank you and we will follow with you. Cyril Justice MD
[2018-02-08] MEDS: Pantoprazole 40 mg EC Tab PO SCH (05:47)
[2018-02-08] MEDS: Levothyroxine 175 MCG TAB PO SCH (05:48)
[2018-02-08 06:26] LABS: EOS # 0.1 (0.0-0.7); EOS % 1.3 % (1.5-5.0); GRAN # 3.51 (1.4-6.5); GRAN % 73.9 % (50.0-68.0); HEMOGLOBIN 9.5 g/dL (12.0-16.0); LYMPH # 0.7 (1.2-3.4); LYMPH % 14.7 % (22.0-35.0); MEAN CELL VOLUME 98.6 fl (80.0-105.0); MEAN CORPUSCULAR HEMOGLOBIN 34.1 pg (25.0-35.0); MEAN CORPUSCULAR HGB CONC 34.5 g/dl (31.0-37.0); MEAN PLATELET VOLUME 9.9 fl (7.0-11.0); MONO # 0.5 (0.1-0.6); MONO % 10.1 % (1.0-6.0); RBC 2.79 10^6/uL (3.5-6.1); RED CELL DISTRIBUTION WIDTH 13.6 % (11.5-14.5); WHITE BLOOD COUNT 4.8 10^3/ul (4.5-11.0)
[2018-02-08] MEDS: Insulin Reg-LOW-Coverage SC SCH ×2 (06:33→11:20)
[2018-02-08 06:52] LABS: INR 1.1 (0.93-1.08); PROTHROMBIN TIME 12.7 SECONDS (9.4-12.5)
[2018-02-08] MEDS: Arformoterol 15 mcg/2 ml Inh Sol IH SCH (07:12)
[2018-02-08 07:53] LABS: ALB/GLOB RATIO 1.2 (1.1-1.8); ALBUMIN 3.2 g/dL (3.0-4.8); CALCIUM 8.9 mg/dL (8.4-10.5)
--- NOTE | 2018-02-08 08:52 | CP.PCM.PN ---
Subjective - Subjective Subjective: Sleeping, comfortable, easily awaken, denies shortness of breath,denies chest pain Reason for consult and follow up: Continuity of care in TCU, Atrial fibrillation, AICD/PPM, seizure disorder ,COPD,cardiomyopathy, Seen and examined by me and Dr. Naranjo Objective - Vital Signs/Intake and Output Vital Signs (last 24 hours): Temp Pulse Resp BP Pulse Ox 98.6 F 79 18 92/63 L 99 02/07/18 18:03 02/07/18 19:23 02/07/18 18:03 02/08/18 08:14 02/07/18 18:03 - Medications Medications: Current Medications Alprazolam (Xanax) 0.125 mg PO Q8H PRN; Protocol PRN Reason: Anxiety Stop: 02/12/18 16:10 Arformoterol Tartrate (Brovana) 15 mcg IH [id number] [facility] PRN Reason: Protocol Last Admin: 02/08/18 07:12 Dose: Not Given Calcium/Vitamin D (Oscal-D 250 Mg-125 Units Tab) 1 tab PO DAILY [facility] PRN Reason: Protocol Last Admin: 02/07/18 11:10 Dose: 1 tab Carvedilol (Coreg) 3.125 mg PO 0800,1800 [facility] PRN Reason: Protocol Last Admin: 02/08/18 08:14 Dose: Not Given Docusate Sodium (Colace) 100 mg PO DAILY [facility] PRN Reason: Protocol Last Admin: 02/07/18 11:07 Dose: Not Given Furosemide (Lasix) 40 mg PO 0630 [facility] PRN Reason: Protocol Last Admin: 02/08/18 05:50 Dose: Not Given Insulin Human Regular (Humulin R Low) 0 units SC ACHS [facility] PRN Reason: Protocol Last Admin: 02/08/18 06:33 Dose: Not Given Isosorbide Mononitrate (Imdur) 60 mg PO 0630 [facility] PRN Reason: Protocol Last Admin: 02/08/18 05:47 Dose: 60 mg Levothyroxine Sodium (Synthroid) 175 mcg PO 0600 [facility] PRN Reason: Protocol Last Admin: 02/08/18 05:48 Dose: 175 mcg Lidocaine (Lidoderm) 2 ea TD DAILY [facility] PRN Reason: Protocol Last Admin: 02/07/18 11:08 Dose: 2 ea Lisinopril (Zestril) 5 mg PO DAILY [facility] PRN Reason: Protocol Last Admin: 02/07/18 11:11 Dose: 5 mg Magnesium Oxide (Mag-Ox) 400 mg PO BID [facility] PRN Reason: Protocol Last Admin: 02/07/18 17:42 Dose: 400 mg Morphine Sulfate (Morphine Extended Release Tab) 15 mg PO 1000,2200 [facility] PRN Reason: Protocol Last Admin: 02/07/18 21:41 Dose: 15 mg Morphine Sulfate (Morphine) 2 mg IVP Q6 PRN; Protocol PRN Reason: PAIN,SEVERE [8-10] Ondansetron HCl (Zofran Inj) 4 mg IVP Q6H PRN; Protocol PRN Reason: Nausea/Vomiting Pantoprazole Sodium (Protonix Ec Tab) 40 mg PO 0600 [facility] PRN Reason: Protocol Last Admin: 02/08/18 05:47 Dose: 40 mg Polyethylene Glycol (Miralax) 17 gm PO BID [facility] PRN Reason: Protocol Last Admin: 02/07/18 17:42 Dose: Not Given Potassium Phos/Sodium Phos (Neutra-Phos) 1 pkt PO BID [facility] PRN Reason: Protocol Last Admin: 02/07/18 17:43 Dose: 1 pkt Prednisone (Prednisone Tab) 7 mg PO 0800 [facility] PRN Reason: Protocol Last Admin: 02/08/18 08:37 Dose: 7 mg Sucralfate (Carafate Tab) 1 gm PO 0600,2000 [facility] PRN Reason: Protocol Last Admin: 02/08/18 05:47 Dose: 1 gm Warfarin Sodium (Coumadin) 5 mg PO 1800 [facility] PRN Reason: Protocol Zolpidem Tartrate (Ambien) 10 mg PO HS [facility] PRN Reason: Protocol Last Admin: 02/07/18 21:41 Dose: 10 mg - Labs Labs: 02/08/18 06:00 02/08/18 06:00 PT 12.7 SECONDS (9.4-12.5) H 02/08/18 06:00 INR 1.10 (0.93-1.08) H 02/08/18 06:00 - Constitutional Appears: No Acute Distress - Head Exam Head Exam: NORMOCEPHALIC - Eye Exam Eye Exam: Normal appearance - ENT Exam ENT Exam: Mucous Membranes Moist - Respiratory Exam Respiratory Exam: Clear to Ausculation Bilateral, NORMAL BREATHING PATTERN - Cardiovascular Exam Cardiovascular Exam: +S1, +S2 Additional comments: AICD/PPM on rightsubclavian, left subclavian vanessa cath - Neurological Exam Neurological Exam: Alert, Awake, Oriented x3 - Psychiatric Exam Psychiatric exam: Normal Affect, Normal Mood - Skin Skin Exam: Intact, Normal Color, Warm Assessment and Plan - Assessment and Plan (Free Text) Assessment: Continuity of care in TCU. Initially admitted for intractable back pain due to lumbar fracture unrelieved with oral pain medicines. L1 Kyphoplasty which relieved some of the back pain, history of breast cancer with mastectomy, Atrial fibrillation, AICD/PPM, seizure disorder ,COPD,cardiomyopathy,steroid induced osteoporosis, IDDM, hyperthyroidism, now transferred to TCU for deconditioning Plan: Cardiac status stable Back pain better after kyphoplasty Continue Coreg 3.125 mg BID,Lasix 40 mg daily,Imdur 60 mg daily,Zestril 5 mg daily Coumadin 2 mg OD, Synthroid 175 mcg daily Stable blood pressure Physical therapy Continue current medications Continue current treatment Endocrine on consult for elevated TSH Will follow up Plan and treatment discussed with Dr. Naranjo Plan: Wanted to go home In TCU for reconditioning Cardiac status stable Back pain better after kyphoplasty Coumadin 10 mg given yesterday Continue Coreg 3.125 mg BID,Lasix 40 mg daily,Imdur 60 mg daily,Zestril 5 mg daily Coumadin 5 mg OD, Synthroid 175 mcg daily Stable blood pressure Physical therapy in progress Endocrine on consult for elevated TSH Continue current medications Continue current treatment Will follow up Plan and treatment discussed with Dr. Naranjo
[2018-02-08] MEDS: Magnesium Oxide 400 mg Tab UD PO SCH (11:02)
[2018-02-08] MEDS: Lidocaine 5% Patch TD SCH (11:02)
[2018-02-08] MEDS: POLYETHYLENE GLYCOL 3350 17 GM/Dose PACKET PO SCH (11:02)
[2018-02-08] MEDS: Morphine 15 mg SR Tab PO SCH (11:03)
[2018-02-08] MEDS: Potassium & Sodium Phosphate PO SCH (11:03)
[2018-02-08] MEDS: Calcium-Vit D 250 mg-125 Units Tab UD PO SCH (11:04)
[2018-02-08 11:11] VITALS: BP 86/52
[2018-02-08 12:18] VITALS: PULSE 75
--- NOTE | 2018-02-08 19:12 | PN ---
DATE: 02/08/2018 ENDOCRINOLOGY FOLLOWUP NOTE LOCATION: In room [facility], [facility]. SUBJECTIVE: This is a 77-year-old female with recent overt hypothyroidism and is now being followed closely for metabolic management. She presented here with severe intractable lower back pain and associated radiculopathy and has been followed closely for metabolic management. Her glycemic levels are fluctuating, but improved as noted and the latest thyroid study showed a TSH of 60.6 with a total T4 of 7.1. Her latest chemistry showed BUN of 34. Sodium 135, potassium 4, chloride 92, CO2 of 36. Glucose 91. Creatinine 1.3. So at this time, we will continue the levothyroxine given as 175 mcg once daily in the morning as ordered. We will titrate incrementally as indicated to optimize metabolic control. We will obtain serial chemistries and supplement accordingly as needed. We will follow. Emelia Tracey MD
--- NOTE | 2018-02-09 12:56 | DS ---
For Dr. Newman. SUBJECTIVE: The patient is a 77-year-old female being discharged today home from the TCU after participating in TCU protocol for approximately three days. The patient is insistent on discharge home as she tried to sign against medical advice as she needs to take care of her pets, she reports. However, she is status post laminectomy with good effect with her pain significantly improved. However, her INR is subtherapeutic with Coumadin dosing given yesterday 10 mg, we will also give 5 mg today with recommendations for her to continue present regimen of 2 mg a day as an outpatient with followup with Dr. Newman for testing on Saturday or Saturday of next week. With this, the patient is otherwise in no acute distress, anxious for discharge home. OBJECTIVE: VITAL SIGNS: Temperature 98.6, pulse 79, respirations 18, blood pressure 94/56, pulse ox of 99% GENERAL: She appears frail. HEENT: Unremarkable. NECK: Supple. LUNGS: Clear. HEART: Regular rate. Occasional ectopic beat with the patient known to have a pacer. ABDOMEN: Soft, nontender. EXTREMITIES: No edema. SKIN: Warm and dry. NEUROLOGIC: Awake and alert. LABORATORY DATA: The patient's labs were done. White blood cell count of 4.8, hemoglobin of 9.5, hematocrit 27.5, platelet count 144,000 with a chem metabolic panel showing a BUN of 34, creatinine of 1.3 with an, otherwise, normal chem metabolic panel. Her INR today is 1.1; however, 10 mg of Coumadin was given yesterday with the patient usually taking 2 mg on a daily basis with the patient known to have a labile reaction with the value possibly due to spike once it becomes . With this, we will give her 5 mg today prior to discharge home rather than having the patient sign against medical advice with recommendations for her to continue 2 mg on a daily basis and strict followup in approximately 5 days time in the office with Dr. Newman. ASSESSMENT: For this patient is that of deconditioning; hypothyroidism; chronic obstructive pulmonary disease; atherosclerotic cardiovascular disease, status post stenting; hypertension; anticoagulation on Coumadin for her atrial fibrillation with pacer with her intractable pain of recent compression fractures at L1 repaired by kyphoplasty on 02/05/[address] Marcial Childers with good effect for her severe pain there. MEDICATIONS: The patient's medications were reviewed. They include Synthroid now at 175 mcg daily; however, the patient has 50 mcg at home, we will ask for [facility], to which a phone call was placed to give her 150 mcg tablets so that we may eventually cut back once her TSH becomes therapeutic. At present, she will take 150 mcg daily of the Synthroid. She also was taking Norvasc, Ambien, Coumadin as described above 5 mg today prior to discharge, then 2 mg daily at home with followup PT/INR in 5 days' time. Carafate, simvastatin, Percocet, Singulair, Glucophage, Antivert, Zestril, Lidoderm, Imdur, digoxin, Coreg, Brovana, and Xanax p.r.n. PLAN: The plan for this patient after conversation with Dr. Newman is to send her home with maximal assist including homemaker, home-visiting nurse, home physiotherapy as indicated by her insurance and social workers prior to discharge home. Her followup will be in approximately 5 days' time in the office or earlier. We will monitor clinically with labs with the patient to come in earlier should it be necessary. This is a complex patient with a comprehensive medical necessity and appropriate visit carried out in excess of 40 minutes [id number] time with the patient, phone call conversations were held with [facility] along with recommendations from Dr. Justice, her vfx artist, with her questions answered to her satisfaction. The patient was also to continue her prednisone 10 mg daily at home to be cut back as an outpatient. Niall Vega MD
== END 2018-02-08 12:08 | disposition home or self-care (01) | DRG 191 ==
LOC: TRCU 15:53
PROVIDERS: ADMIT Family Medicine; ATTEND Family Medicine
PROC: F07Z9FZ Gait Training/Functional Ambulation Treatment using Assistive, Adaptive, Supportive or Protective Equipment (ICD-10-PCS; principal; 2018-02-06)
PROC: F07M6ZZ Therapeutic Exercise Treatment of Musculoskeletal System - Whole Body (ICD-10-PCS; 2018-02-06)
PROC: F08Z1ZZ Dressing Techniques Treatment (ICD-10-PCS; 2018-02-06)
PROC: F08Z2ZZ Grooming/Personal Hygiene Treatment (ICD-10-PCS; 2018-02-06)
PROC: F08Z0ZZ Bathing/Showering Techniques Treatment (ICD-10-PCS; 2018-02-06)
PROC: F08Z4ZZ Home Management Treatment (ICD-10-PCS; 2018-02-06)
DX: J44.9 Chronic obstructive pulmonary disease, unspecified (principal); I42.9 Cardiomyopathy, unspecified; M48.56XA Collapsed vertebra, not elsewhere classified, lumbar region, initial encounter for fracture; I25.10 Atherosclerotic heart disease of native coronary artery without angina pectoris; D50.9 Iron deficiency anemia, unspecified; E06.3 Autoimmune thyroiditis; E10.42 Type 1 diabetes mellitus with diabetic polyneuropathy; F17.200 Nicotine dependence, unspecified, uncomplicated; G40.909 Epilepsy, unspecified, not intractable, without status epilepticus; G47.33 Obstructive sleep apnea (adult) (pediatric); I11.0 Hypertensive heart disease with heart failure; I48.91 Unspecified atrial fibrillation; I50.9 Heart failure, unspecified; M54.10 Radiculopathy, site unspecified; M81.8 Other osteoporosis without current pathological fracture; N28.9 Disorder of kidney and ureter, unspecified; Z79.01 Long term (current) use of anticoagulants; Z79.4 Long term (current) use of insulin; Z79.52 Long term (current) use of systemic steroids; Z79.899 Other long term (current) drug therapy; Z85.3 Personal history of malignant neoplasm of breast; Z90.10 Acquired absence of unspecified breast and nipple; Z86.73 Personal history of transient ischemic attack (TIA), and cerebral infarction without residual deficits; Z91.19 Patient's noncompliance with other medical treatment and regimen; Z95.0 Presence of cardiac pacemaker

== ENCOUNTER 2018-07-20 08:01 | Inpatient (IN) | payer MEDICARE, MEDICAID ==
[2018-07-20 08:01] VITALS: PULSE 80
[2018-07-20 08:05] VITALS: BMI 21.7
[2018-07-20] MEDS ORDERED: MethylPREDNISolone 40 mg Vial IVP STA (08:20)
--- NOTE | 2018-07-20 08:20 | ED PDOC ---
Arrival/HPI - General Chief Complaint: Shortness Of Breath Time Seen by Provider: 07/20/18 08:14 Historian: Patient - History of Present Illness Narrative History of Present Illness (Text): 07/20/18 08:16 A 78 year old female, whose past medical history icnludes CHF, COPD, asthma, pacemaker, defibrillator, presents to the emergency department with a complaint of shortness of breath. The patient states that the shortness of breath began last night and became worse this morning. She notes that she took a shower this morning because she was feeling "run down" and gave herself a breathing treatment with no improvement of her symptoms. She states that she feels a heaviness in her chest. The patient denies fevers, chills, headache, dizziness, abdominal pain, nausea, vomiting, diarrhea, back pain, neck pain, chest pain, or any other complaint. PMD: Dr. Oliveros Oncologist: Dr. Newman Pin Maker: Dr. Ferrari Time/Duration: Other (Last Night) Symptom Onset: Sudden Symptom Course: Unchanged Activities at Onset: Rest, Light Context: Home Past Medical History - Provider Review Nursing Documentation Reviewed: Yes - Past History Past History: No Previous - Infectious Disease Hx of Infectious Diseases: None - Tetanus Immunization Tetanus Immunization: Unknown - Reproductive Menopause: Yes - Cardiac Hx Cardiac Disorders: Yes (5 stents) Hx Congestive Heart Failure: Yes Hx Hypertension: Yes - Pulmonary Hx Chronic Obstructive Pulmonary Disease (COPD): Yes - Neurological HX Cerebrovascular Accident: Yes - HEENT Hx HEENT Disorder: Yes Hx Cataracts: Yes (sx b/l) Other/Comment: eye glasses - Renal Hx Renal Failure: Yes - Endocrine/Metabolic Hx Diabetes Mellitus Type 2: Yes Hx Hypothyroidism: Yes - Hematological/Oncological Hx Blood Disorders: Yes Hx Anemia: Yes (iron deficiency-IRON INFUSIONS) - Integumentary Hx Dermatological Disorder: No - Musculoskeletal/Rheumatological Hx Arthritis: Yes - Gastrointestinal Hx Gastrointestinal Disorders: Yes (gastritis/ hiatal hernia, gi bleed) Hx Pancreatitis: Yes Other/Comment: hiatal hernia:GI Bleed;gastritis - Genitourinary/Gynecological Hx Genitourinary Disorders: No - Psychiatric Hx Psychophysiologic Disorder: Yes (SMOKES 5 CIG A DAY. SMOKED FOR 50 YRS) Hx Anxiety: Yes Hx Depression: Yes Hx Substance Use: No - Surgical History Hx Cardiac Catheterization: Yes (5 stents) Hx Coronary Stent: Yes (5) Hx Inguinal Hernia Repair: Yes (bilateral) Hx Open Heart Surgery: Yes - Anesthesia Hx Anesthesia Reactions: No Hx Malignant Hyperthermia: No - Suicidal Assessment Feels Threatened In Home Enviroment: No Family/Social History - Physician Review Nursing Documentation Reviewed: Yes Family/Social History: No Known Family HX Smoking Status: Former Smoker Hx Alcohol Use: No Hx Substance Use: No Hx Substance Use Treatment: No Allergies/Home Meds Allergies/Adverse Reactions: Allergies Sulfa (Sulfonamide Antibiotics) Allergy (Mild, Verified 01/29/18 15:09) RASH Home Medications: Home Meds Medication Instructions Recorded Confirmed Warfarin [Coumadin] 4 mg PO DAILY 05/26/12 01/29/18 Omeprazole [PrilOSEC] 40 mg PO DAILY 05/22/15 01/29/18 Simvastatin 40 mg PO QAM 05/22/15 01/29/18 Cyclobenzaprine [Flexeril] 1 tab PO DAILY 12/01/15 01/29/18 Digoxin [Digitek] 1 tab PO DAILY 12/01/15 01/29/18 Meclizine [Antivert] 2.5 mg PO TID 12/01/15 01/29/18 Metformin HCl [Glucophage] 500 mg PO BID 12/01/15 01/29/18 Montelukast [Singulair] 1 tab PO HS 12/01/15 01/29/18 Naproxen Sodium [Naproxen Sodium 1 tab PO BID 12/01/15 01/29/18 ER] Oxycodone HCl/Acetaminophen 1 tab PO Q6H PRN 12/01/15 01/29/18 [Oxycodone-Acetaminophen 5-325] Prochlorperazine [Compazine Tab] 5 tab PO Q4 12/01/15 01/29/18 Zolpidem [Ambien] 10 mg PO HS 12/01/15 01/29/18 Ergocalciferol (Vitamin D2) 50,000 units PO .WEEKLY 08/02/16 01/29/18 [Vitamin D] amLODIPine [Norvasc] 5 mg PO DAILY 08/02/16 01/29/18 traMADol [Ultram] 50 mg PO DAILY 08/02/16 01/29/18 Albuterol HFA [Ventolin HFA 90 0.09 mg IH Q8 PRN 03/13/17 01/29/18 mcg/actuation (8 g)] Allopurinol [Zyloprim] 100 mg PO BID 08/26/17 01/29/18 Lubiprostone [Amitiza] 24 mcg PO BID 08/26/17 01/29/18 Potassium Chloride [K-Dur 20 mEq 20 meq PO DAILY 08/26/17 01/29/18 ER Tab] Sucralfate [Carafate] 1 gm PO Q12H 08/26/17 01/29/18 Review of Systems - Physician Review All systems were reviewed & negative as marked: Yes - Review of Systems Constitutional: absent: Fevers ENT: absent: Sore Throat Respiratory: SOB Cardiovascular: absent: Chest Pain Gastrointestinal: absent: Abdominal Pain, Diarrhea, Nausea, Vomiting Musculoskeletal: absent: Back Pain, Neck Pain Neurological: absent: Headache, Dizziness Physical Exam - Physical Exam Narrative Physical Exam (Text): 07/20/18 08:33 Gen: VS reviewed, alert, well developed, well nourished, nontoxic, mild distress. ENT: normal pharynx. Eye: EOMI, PERRL. Neck: no JVD, supple, no adenopathy. CV: regular rate, regular rhythm, no rubs, no murmur, no gallops, S1, S2, pulses equal and strong. Pulm: No distress. Bilateral expiratory wheeze with fair air exchange bilaterally. No rhonchi. No rales. Abd: soft, nontender, no guarding, no rebound, no rigidity, normal bowel sounds. Ext: no edema. Skin: good color, no rash, no cyanosis. Psych: responds appropriately to questions, normal affect. Neuro: oriented x 3, CN2-12 intact grossly, motor intact, sensation intact. Vital Signs Reviewed: Yes Vital Signs Temp Pulse Resp BP Pulse Ox 07/20/18 08:11 98.4 F 98 H 24 173/90 H 99 07/20/18 08:02 98.4 F 97 H 21 173/90 H 96 Temperature: Hypothermic Blood Pressure: Hypertensive Pulse: Regular Respiratory Rate: Normal Appearance: Positive for: Well-Appearing, Non-Toxic, Comfortable Pain Distress: None Mental Status: Positive for: Alert and Oriented X 3 Medical Decision Making ED Course and Treatment: 07/20/18 08:24 Impression: A 78 year old female presents to [facility] emergency department with a complaint of worsening shortness of breath since last night. Plan: -- EKG -- Chest X-Ray -- Labs -- Blood Culture -- Duoneb and SOLU- Medrol -- Reassess and disposition Prior Visits: Notes and results from previous visits were reviewed. Progress Notes: 07/20/18 08:25 07/20/18 09:40 On re-eval, patient is less tachypneic, good air exchange bilaterally, minor wheeze in the bilat lung michael. Patient reports significant improvement in chest tightness at this time. 07/20/18 10:12: Case discussed in detail with Dr. Lincoln who accepts patient to his service for admission. Patient to be admitted to the hospital for IV antibiotics, COPD exacerbation, and possible CHF exacerbation. - Lab Interpretations I have reviewed the lab results: Yes - EKG Interpretation Interpreted by ED Physician: Yes Type: 12 lead EKG - Scribe Statement The provider has reviewed the documentation as recorded by the Leonelibe Elsie Pool Provider Scribe Attestation: All medical record entries made by the Scribe were at my direction and person ally dictated by me. I have reviewed the chart and agree that the record accurately reflects my personal performance of the history, physical exam, medical decision making, and the department course for this patient. I have also personally directed, reviewed, and agree with the discharge instructions and disposition Disposition/Present on Arrival - Present on Arrival Any Indicators Present on Arrival: No History of DVT/PE: No History of Uncontrolled Diabetes: No Urinary Catheter: Yes History of Decub. Ulcer: No History Surgical Site Infection Following: None - Disposition Have Diagnosis and Disposition been Completed?: Yes Diagnosis: COPD (chronic obstructive pulmonary disease), CHF (congestive heart failure) Disposition: HOSPITALIZED Disposition Time: 09:42 Patient Plan: Admission Patient Problems: Current Active Problems Problem Status Onset COPD (chronic obstructive pulmonary disease) Acute CHF (congestive heart failure) Acute Condition: IMPROVED Discharge Instructions (ExitCare): Heart Failure (ED) Forms: [employer] (Estonian)
[2018-07-20] MEDS: Albuterol-Ipratrop 3 mg / 0.5 (3 ml) UD IH SCH ×5 (08:30→19:42)
[2018-07-20 09:10] LABS: BASO # 0.02 K/mm3 (0.0-2.0); BASO % 0.6 % (0.0-3.0); EOS # 0.1 (0.0-0.7); EOS % 2.1 % (1.5-5.0); GRAN # 2.66 (1.4-6.5); GRAN % 80.4 % (50.0-68.0); HEMOGLOBIN 9.6 g/dL (12.0-16.0); LYMPH # 0.4 (1.2-3.4); LYMPH % 11.8 % (22.0-35.0); MEAN CELL VOLUME 100.3 fl (80.0-105.0); MEAN CORPUSCULAR HEMOGLOBIN 32.5 pg (25.0-35.0); MEAN CORPUSCULAR HGB CONC 32.4 g/dl (31.0-37.0); MEAN PLATELET VOLUME 10.3 fl (7.0-11.0); MONO # 0.2 (0.1-0.6); MONO % 5.1 % (1.0-6.0); RBC 2.95 10^6/uL (3.5-6.1); RED CELL DISTRIBUTION WIDTH 14.9 % (11.5-14.5); WHITE BLOOD COUNT 3.3 10^3/ul (4.5-11.0)
[2018-07-20 09:11] LABS: VENOUS BLOOD GAS BASE EXCESS -3.9 mmol/L (0.0-2.0); VENOUS BLOOD GAS PO2 49 mm/Hg (30-55); VENOUS BLOOD PH 7.32 (7.32-7.43)
[2018-07-20 09:17] LABS: INR 1.33; PARTIAL THROMBOPLASTIN TIME 36.4 Seconds (25.1-36.5); PROTHROMBIN TIME 15.4 SECONDS (9.4-12.5)
[2018-07-20 09:29] LABS: B-TYPE NATRIURETIC PEPTIDE 9030 pg/mL (0-450); TROPONIN I < 0.01 ng/mL
[2018-07-20 09:31] LABS: ALB/GLOB RATIO 1.4 (1.1-1.8); ALBUMIN 3.9 g/dL (3.0-4.8); ALT/SGPT 23 U/L (7-56); AST/SGOT 18 U/L (14-36); BLOOD UREA NITROGEN 18 mg/dL (7-21); CALCIUM 8.7 mg/dL (8.4-10.5); GFR NON-AFRICAN AMERICAN 34
[2018-07-20] MEDS ORDERED: Azithromycin 500MG/NS 250ml 500 MG/250 ML BAG IVPB STA (09:42)
[2018-07-20] MEDS ORDERED: cefTRIAXone 1 gm 1 GM/100 ML BAG IVPB STA (09:44)
--- NOTE | 2018-07-20 10:39 | RAD ---
Date of service: 07/20/2018 HISTORY: chest pain COMPARISON: 01/29/2018 FINDINGS: LUNGS: No active pulmonary disease. PLEURA: No significant pleural effusion identified, no pneumothorax apparent. CARDIOVASCULAR: Mild to moderate cardiomegaly with mild vascular and interstitial congestion OSSEOUS STRUCTURES: No significant abnormalities. VISUALIZED UPPER ABDOMEN: Normal. OTHER FINDINGS: Pacemaker. Port-A-Cath IMPRESSION: Mild to moderate cardiomegaly with mild vascular and interstitial congestion
--- NOTE | 2018-07-20 10:40 | CP.PCM.HP ---
<MarilouGladys - Last Filed: 07/20/18 12:15> History of Present Illness - History of Present Illness History of Present Illness: H&P for Barber Mercado PGY3 This is a 78yo female with extensive past medical history including CAD, A.fib (on coumadin), mechanical mitral valve, AICD/Pacer, HTN, dyslipidemia, CVA, DMII, compression fractures, CKD IIIA, GI bleed from angiodysplasia, COPD who came to ED for shortness of breath x 2 days. Patient states for the past 2 days she has been having productive cough with shortness of breath. She reports her health aid was sick at home and she has been coughing yellow tinged mucus. Patient also reports feeling warm, but denies having fevers, chest pain, vomiting/diarrhea, numbness/tingling, abdominal pain, dysuria or hematuria. Patient states she has been feeling weak and is nauseous when she eats which has been chronic for the past few months. Patient is some what of a poor historian. Medications were confirmed with [facility]'s pharmacy. Of note, past records report patient had history of breast cancer s/p mastectomy and radiation. Patient denies having history of cancer. Past medical history: CAD s/p CABG, A.fib (on coumadin), AICD, angiodysplasia of colon, GI bleed, hx of multiple blood transfusions, HTN, HLD, CVA, DM-II, peripheral neuropathy, COPD, mechanical mitral valve, compression fracture on chronic pain medicine, CKD IIIA, Ischemic cardiomyopathy s/p pacer/AICD, hypothyroidism Past surgical history: CABG, AICD/pacer, mitral Mechanical valve placement, femoral stents? as per patient, bilateral neck surgery- but not sure what kind Home meds: Reviewed as per MAR Allergies: Sulfa Social history: Smokes 1 cigg per day x >50yrs, Denies EtOH or drug use. Lives alone and has a health aid. Walks with cane Family history: Dad- from heart problems, Mom- from heart problems PMD: Dr. Oliveros Heme: Dr. Newman Cardiology: Dr. Ferrari Present on Admission - Present on Admission Any Indicators Present on Admission: No Review of Systems - Review of Systems All systems: reviewed and no additional remarkable complaints except Review of Systems: 12 point ROS reviewed as per HPI and is otherwise negative Past Patient History - Infectious Disease Hx of Infectious Diseases: None - Tetanus Immunizations Tetanus Immunization: Unknown - Past Social History Smoking Status: Former Smoker - CARDIAC Hx Cardiac Disorders: Yes (5 stents) Hx Congestive Heart Failure: Yes Hx Hypertension: Yes - PULMONARY Hx Chronic Obstructive Pulmonary Disease (COPD): Yes - NEUROLOGICAL HX Cerebrovascular Accident: Yes - HEENT Hx HEENT Problems: Yes Hx Cataracts: Yes (sx b/l) Other/Comment: eye glasses - RENAL Hx Renal Failure: Yes - ENDOCRINE/METABOLIC Hx Diabetes Mellitus Type 2: Yes Hx Hypothyroidism: Yes - HEMATOLOGICAL/ONCOLOGICAL Hx Blood Disorders: Yes Hx Anemia: Yes (iron deficiency-IRON INFUSIONS) - INTEGUMENTARY Hx Dermatological Problems: No - MUSCULOSKELETAL/RHEUMATOLOGICAL Hx Arthritis: Yes - GASTROINTESTINAL Hx Gastrointestinal Disorders: Yes (gastritis/ hiatal hernia, gi bleed) Hx Pancreatitis: Yes Other/Comment: hiatal hernia:GI Bleed;gastritis - GENITOURINARY/GYNECOLOGICAL Hx Genitourinary Disorders: No - PSYCHIATRIC Hx Psychophysiologic Disorder: Yes (SMOKES 5 CIG A DAY. SMOKED FOR 50 YRS) Hx Anxiety: Yes Hx Depression: Yes Hx Substance Use: No - SURGICAL HISTORY Hx Cardiac Catheterization: Yes (5 stents) Hx Coronary Stent: Yes (5) Hx Open Heart Surgery: Yes - ANESTHESIA Hx Anesthesia Reactions: No Hx Malignant Hyperthermia: No Meds Allergies/Adverse Reactions: Allergies Allergy/AdvReac Type Severity Reaction Status Date / Time Sulfa (Sulfonamide Allergy Mild RASH Verified 01/29/18 15:09 Antibiotics) Physical Exam - Constitutional Appears: No Acute Distress - Head Exam Head Exam: ATRAUMATIC, NORMAL INSPECTION, NORMOCEPHALIC - Eye Exam Eye Exam: Normal appearance, PERRL Pupil Exam: NORMAL ACCOMODATION - ENT Exam ENT Exam: Mucous Membranes Moist - Neck Exam Neck exam: Positive for: Full Rom, Normal Inspection. Negative for: Meningismus, Tenderness Additional comments: bilateral lateral transverse neck scars - Respiratory Exam Respiratory Exam: Rhonchi, Wheezes (bilaterally ), NORMAL BREATHING PATTERN. absent: Rales, Respiratory Distress, Stridor - Cardiovascular Exam Cardiovascular Exam: REGULAR RHYTHM, +S1, +S2. absent: Gallop, Rubs, Systolic Murmur - GI/Abdominal Exam GI & Abdominal Exam: Normal Bowel Sounds, Soft. absent: Guarding, Mass, Rebound, Rigid, Tenderness - Extremities Exam Extremities exam: Positive for: normal inspection. Negative for: calf tenderness, pedal edema - Neurological Exam Neurological exam: Alert, CN II-XII Intact, Oriented x3 - Psychiatric Exam Psychiatric exam: Normal Affect, Normal Mood - Skin Skin Exam: Dry, Intact, Normal Color, Warm Results - Vital Signs Recent Vital Signs: Last Vital Signs Temp 98.4 F 07/20/18 08:11 Pulse 106 H 07/20/18 10:04 Resp 25 H 07/20/18 10:04 BP 159/86 H 07/20/18 10:09 Pulse Ox 95 07/20/18 10:04 - Labs Result Diagrams: 07/20/18 08:35 07/20/18 08:35 Labs: Laboratory Results - last 24 hr 07/20/18 07/20/18 07/20/18 08:35 08:35 08:35 WBC 3.3 L D RBC 2.95 L Hgb 9.6 L Hct 29.6 L MCV 100.3 MCH 32.5 MCHC 32.4 RDW 14.9 H Plt Count 119 L MPV 10.3 Gran % 80.4 H Lymph % (Auto) 11.8 L Barber % (Auto) 5.1 Eos % (Auto) 2.1 Baso % (Auto) 0.6 Gran # 2.66 Lymph # (Auto) 0.4 L Barber # (Auto) 0.2 Eos # (Auto) 0.1 Baso # (Auto) 0.02 PT INR APTT pO2 49 VBG pH 7.32 VBG pCO2 43.0 VBG HCO3 22.2 VBG Total CO2 23.5 VBG O2 Sat (Calc) 86.3 H VBG Base Excess -3.9 L VBG Potassium 3.9 Sodium 140.0 139 Chloride 111.0 H 109 H Glucose 91 Lactate 1.1 FiO2 21.0 Potassium 4.0 Carbon Dioxide 21 Anion Gap 13 BUN 18 Creatinine 1.5 H Est GFR ( Amer) 41 Est GFR (Non-Af Amer) 34 Random Glucose 94 Calcium 8.7 Magnesium 1.9 Total Bilirubin 0.6 AST 18 ALT 23 Alkaline Phosphatase 138 H Troponin I < 0.01 D NT-Pro-B Natriuret Pep 9030 H Total Protein 6.8 Albumin 3.9 Globulin 2.8 Albumin/Globulin Ratio 1.4 Venous Blood Potassium 3.9 07/20/18 08:35 WBC RBC Hgb Hct MCV MCH MCHC RDW Plt Count MPV Gran % Lymph % (Auto) Barber % (Auto) Eos % (Auto) Baso % (Auto) Gran # Lymph # (Auto) Barber # (Auto) Eos # (Auto) Baso # (Auto) PT 15.4 H INR 1.33 APTT 36.4 pO2 VBG pH VBG pCO2 VBG HCO3 VBG Total CO2 VBG O2 Sat (Calc) VBG Base Excess VBG Potassium Sodium Chloride Glucose Lactate FiO2 Potassium Carbon Dioxide Anion Gap BUN Creatinine Est GFR ( Amer) Est GFR (Non-Af Amer) Random Glucose Calcium Magnesium Total Bilirubin AST ALT Alkaline Phosphatase Troponin I NT-Pro-B Natriuret Pep Total Protein Albumin Globulin Albumin/Globulin Ratio Venous Blood Potassium Assessment & Plan - Assessment and Plan (Free Text) Assessment: 1. Shortness of breath - can be secondary to COPD exacerbation 2. GEORGE on CKD IIIA - can be pre-renal 3. CAD s/p CABG 4. A.fib (on Coumadin) 5. Mechanical mitral valve 6. Ischemic cardiomyopathy s/p pacer/AICD 7. HTN 8. HLD 9. DM II 10. Compression fractures on chronic pain medication 11. Iron deficiency Anemia- stable - secondary to hx of GI bleed from angiodysplasia 12. CVA 13. Peripheral neuropathy 14. Hypothyroidism Plan: Labs and imaging reviewed. Patient will be placed on Zithromax, Duonebs, Robitussin, Solumedrol as well as Brovana and Pulmicort for COPD exacerbation. CXR did not show evidence of pneumonia. Patient has extensive cardiac history and is not on BP medications at home. Will consult cardiology. Will continue confirmed medications of Lipitor, Coumadin, Imdur. INR is subtherapeutic. Metformin on hold and will place patient on insulin sliding scale. Will continue patient home pain medications: Morphine instant release and percocet. Continue Synthroid for hypothyroidism. Patient is on Pepcid and Zofran for nausea. Will get PT eval. Case seen, discussed and reviewed with Dr. Latonia Zamarripa PGY3 - Date & Time Date: 07/20/18 Time: 12:40 <Joaquín Lincoln S - Last Filed: 07/22/18 20:03> Results - Vital Signs Recent Vital Signs: Last Vital Signs Temp 97.5 F L 07/22/18 09:06 Pulse 80 07/22/18 09:06 Resp 18 07/22/18 09:06 BP 116/85 07/22/18 09:06 Pulse Ox 99 07/22/18 09:06 - Labs Result Diagrams: 07/22/18 06:10 07/22/18 06:10 Labs: Laboratory Results - last 24 hr 07/21/18 07/22/18 07/22/18 21:03 06:10 06:10 WBC 3.8 L RBC 2.75 L Hgb 8.8 L Hct 27.3 L MCV 99.3 MCH 32.0 MCHC 32.2 RDW 15.0 H Plt Count 121 MPV 10.6 Gran % 94.5 H Lymph % (Auto) 3.7 L Barber % (Auto) 1.8 Eos % (Auto) 0.0 L Baso % (Auto) 0.0 Gran # 3.60 Lymph # (Auto) 0.1 L Barber # (Auto) 0.1 Eos # (Auto) 0.0 Baso # (Auto) 0.00 Neutrophils % (Manual) 97 H Lymphocytes % (Manual) 1 L Monocytes % (Manual) 2 Platelet Evaluation Normal Retic Count 1.71 H PT 18.6 H INR 1.60 APTT Sodium Potassium Chloride Carbon Dioxide Anion Gap BUN Creatinine Est GFR ( Amer) Est GFR (Non-Af Amer) POC Glucose (mg/dL) 112 H Random Glucose Hemoglobin A1c Calcium Phosphorus Magnesium Iron TIBC % Saturation Transferrin Ferritin Total Bilirubin AST ALT Alkaline Phosphatase Total Protein Albumin Globulin Albumin/Globulin Ratio Triglycerides Cholesterol LDL Cholesterol Direct HDL Cholesterol Vitamin B12 TSH 3rd Generation Influenza Typ A,B (EIA) 07/22/18 07/22/18 07/22/18 06:10 06:10 06:10 WBC RBC Hgb Hct MCV MCH MCHC RDW Plt Count MPV Gran % Lymph % (Auto) Barber % (Auto) Eos % (Auto) Baso % (Auto) Gran # Lymph # (Auto) Barber # (Auto) Eos # (Auto) Baso # (Auto) Neutrophils % (Manual) Lymphocytes % (Manual) Monocytes % (Manual) Platelet Evaluation Retic Count PT INR APTT Sodium 137 Potassium 5.1 H Chloride 103 Carbon Dioxide 23 Anion Gap 15 BUN 40 H Creatinine 2.0 H Est GFR ( Amer) 29 Est GFR (Non-Af Amer) 24 POC Glucose (mg/dL) Random Glucose 125 H Hemoglobin A1c 5.1 Calcium 8.8 Phosphorus 4.2 Magnesium 1.9 Iron TIBC % Saturation Transferrin 162.99 L Ferritin 2080.0 Total Bilirubin 0.6 AST 26 ALT 22 Alkaline Phosphatase 114 Total Protein 6.5 Albumin 3.7 Globulin 2.8 Albumin/Globulin Ratio 1.3 Triglycerides 128 Cholesterol 198 LDL Cholesterol Direct 100 HDL Cholesterol 55 Vitamin B12 211 L TSH 3rd Generation 33.30 H Influenza Typ A,B (EIA) 07/22/18 07/22/18 07/22/18 06:10 06:15 07:35 WBC RBC Hgb Hct MCV MCH MCHC RDW Plt Count MPV Gran % Lymph % (Auto) Barber % (Auto) Eos % (Auto) Baso % (Auto) Gran # Lymph # (Auto) Barber # (Auto) Eos # (Auto) Baso # (Auto) Neutrophils % (Manual) Lymphocytes % (Manual) Monocytes % (Manual) Platelet Evaluation Retic Count PT INR APTT Sodium Potassium Chloride Carbon Dioxide Anion Gap BUN Creatinine Est GFR ( Amer) Est GFR (Non-Af Amer) POC Glucose (mg/dL) 105 Random Glucose Hemoglobin A1c Calcium Phosphorus Magnesium Iron 77 TIBC 207 L % Saturation 37 Transferrin Ferritin Total Bilirubin AST ALT Alkaline Phosphatase Total Protein Albumin Globulin Albumin/Globulin Ratio Triglycerides Cholesterol LDL Cholesterol Direct HDL Cholesterol Vitamin B12 TSH 3rd Generation Influenza Typ A,B (EIA) Negative for flu a/b 07/22/18 07/22/18 09:45 11:29 WBC RBC Hgb Hct MCV MCH MCHC RDW Plt Count MPV Gran % Lymph % (Auto) Barber % (Auto) Eos % (Auto) Baso % (Auto) Gran # Lymph # (Auto) Barber # (Auto) Eos # (Auto) Baso # (Auto) Neutrophils % (Manual) Lymphocytes % (Manual) Monocytes % (Manual) Platelet Evaluation Retic Count PT INR APTT 26.8 Sodium Potassium Chloride Carbon Dioxide Anion Gap BUN Creatinine Est GFR ( Amer) Est GFR (Non-Af Amer) POC Glucose (mg/dL) 120 H Random Glucose Hemoglobin A1c Calcium Phosphorus Magnesium Iron TIBC % Saturation Transferrin Ferritin Total Bilirubin AST ALT Alkaline Phosphatase Total Protein Albumin Globulin Albumin/Globulin Ratio Triglycerides Cholesterol LDL Cholesterol Direct HDL Cholesterol Vitamin B12 TSH 3rd Generation Influenza Typ A,B (EIA) Assessment & Plan - Assessment and Plan (Free Text) Plan: Pt seen and examined by me. This is a late entry.I have reviewed the note by the neuropsychology medical consultant. The case was discussed and reviewed with the resident. I reviewed the medications and labs. Pt with acute COPD and will be placed on Zithromax, Solumderol and Duoneb. She does not have pneumonia. She is subtherapeutic on her coumadin. She may not be be taking her medications. Percocet and Morphine for pain. Will be placed on Lipitor for dyslipidemia. ISS with insulin coverage.
[2018-07-20] MEDS ORDERED: Oxycodone/Acetaminophen 10/325 mg Tab PO PRN (11:27)
[2018-07-20] MEDS ORDERED: Albuterol-Ipratrop 3 mg / 0.5 (3 ml) UD IH PRN (11:33)
--- NOTE | 2018-07-20 16:29 | CARD ---
APPROVED REPORT Date of service: 07/20/2018 EKG Measurement Heart [id number] <Conclusion> Atrial fibrillation with premature ventricular or aberrantly conducted complexes Left bundle branch block Abnormal ECG
[2018-07-20] MEDS: Benzocaine/Menthol (Cepacol) Lozenge MT PRN ×2 (17:57→23:30)
[2018-07-20] MEDS: guaiFENesin 100 mg/5 ml Syrup UD PO PRN (17:57)
[2018-07-20] MEDS: Morphine 15 mg Immediate Release Tab PO SCH (17:57)
[2018-07-20] MEDS: LUBIPROSTONE 24 MCG PO SCH (17:57)
[2018-07-20] MEDS: Arformoterol 15 mcg/2 ml Inh Sol IH SCH (19:42)
[2018-07-20] MEDS: MethylPREDNISolone 40 mg Vial IVP SCH (21:11)
[2018-07-21] MEDS: Albuterol-Ipratrop 3 mg / 0.5 (3 ml) UD IH SCH ×4 (01:31→19:38)
[2018-07-21 06:03] LABS: HEMOGLOBIN 10.2 g/dL (12.0-16.0); MEAN CELL VOLUME 99.7 fl (80.0-105.0); MEAN CORPUSCULAR HEMOGLOBIN 32.7 pg (25.0-35.0); MEAN CORPUSCULAR HGB CONC 32.8 g/dl (31.0-37.0); MEAN PLATELET VOLUME 10.9 fl (7.0-11.0); RBC 3.12 10^6/uL (3.5-6.1); RED CELL DISTRIBUTION WIDTH 14.9 % (11.5-14.5); WHITE BLOOD COUNT 3.9 10^3/ul (4.5-11.0)
[2018-07-21 06:06] LABS: INR 1.4; PROTHROMBIN TIME 16.2 SECONDS (9.4-12.5)
[2018-07-21 07:01] LABS: ALB/GLOB RATIO 1.3 (1.1-1.8); ALBUMIN 4.1 g/dL (3.0-4.8); CALCIUM 9.1 mg/dL (8.4-10.5)
[2018-07-21] MEDS: Insulin Reg-LOW-Coverage SC SCH ×4 (07:57→21:52)
[2018-07-21] MEDS: Arformoterol 15 mcg/2 ml Inh Sol IH SCH ×2 (08:32→19:38)
[2018-07-21] MEDS: MethylPREDNISolone 40 mg Vial IVP SCH ×2 (09:12→21:54)
[2018-07-21] MEDS: Azithromycin 500MG/NS 250ml 500 MG/250 ML BAG IVPB SCH (09:12)
[2018-07-21] MEDS: LUBIPROSTONE 24 MCG PO SCH ×2 (09:13→17:10)
[2018-07-21] MEDS: guaiFENesin 100 mg/5 ml Syrup UD PO PRN (09:22)
[2018-07-21] MEDS ORDERED: Enoxaparin 60 mg Syringe SC STA (09:31)
[2018-07-21] MEDS ORDERED: Levothyroxine 75 MCG TAB PO SCH (10:00)
--- NOTE | 2018-07-21 11:05 | CP.PCM.PN ---
<Phuong Dillon - Last Filed: 07/21/18 14:01> Subjective - Date & Time of Evaluation Date of Evaluation: 07/21/18 Time of Evaluation: 07:00 - Subjective Subjective: PGY-[address] Lincoln's service Patient seen and evaluated at bedside. No acute distress. Nurse reports no acute events over night. Patient states she she still has some sob. She denies any abd pain, flank pain, chest pain. She reports chronic back pain. She is tolerating diet. Objective - Vital Signs/Intake and Output Vital Signs (last 24 hours): Temp Pulse Resp BP Pulse Ox 97.8 F 95 H 20 146/96 H 99 07/21/18 08:52 07/21/18 10:00 07/21/18 08:52 07/21/18 08:52 07/21/18 08:52 Intake and Output: 07/21/18 07/21/18 06:59 18:59 Intake Total 600 Output Total 360 Balance 240 - Medications Medications: Current Medications Albuterol/Ipratropium (Duoneb 3 Mg/0.5 Mg (3 Ml) Ud) 3 ml IH Q2H PRN PRN Reason: Shortness of Breath Last Admin: 07/20/18 23:37 Dose: 3 ml Albuterol/Ipratropium (Duoneb 3 Mg/0.5 Mg (3 Ml) Ud) 3 ml IH [id number] [facility] Last Admin: 07/21/18 08:32 Dose: 3 ml Arformoterol Tartrate (Brovana) 15 mcg IH [id number] [facility] Last Admin: 07/21/18 08:32 Dose: 15 mcg Atorvastatin Calcium (Lipitor) 10 mg PO DIN [facility] Last Admin: 07/20/18 17:57 Dose: 10 mg Benzocaine/Menthol (Cepacol Sore Throat) 1 stephanie MT Q2H PRN PRN Reason: Sore Throat Last Admin: 07/20/18 23:30 Dose: 1 stephanie Clonidine HCl (Catapres) 0.1 mg PO BID PRN PRN Reason: Systolic Blood Pressure Famotidine (Pepcid) 20 mg PO BID [facility] Last Admin: 07/21/18 09:12 Dose: 20 mg Guaifenesin (Robitussin) 100 mg PO Q4H PRN PRN Reason: Cough Last Admin: 07/21/18 09:22 Dose: 100 mg Azithromycin (Zithromax 500mg In Ns) 500 mg in 250 mls @ 167 mls/hr IVPB DAILY [facility]; Protocol Last Admin: 07/21/18 09:12 Dose: 167 mls/hr Insulin Human Regular (Humulin R Low) 0 units SC ACHS [facility]; Protocol Last Admin: 07/21/18 07:57 Dose: Not Given Isosorbide Mononitrate (Imdur) 60 mg PO DAILY [facility] Last Admin: 07/21/18 09:12 Dose: 60 mg Levothyroxine Sodium (Synthroid) 75 mcg PO DAILY [facility] Last Admin: 07/21/18 09:12 Dose: 75 mcg Methylprednisolone (Solu-Medrol) 40 mg IVP Q12 [facility] Last Admin: 07/21/18 09:12 Dose: 40 mg Morphine Sulfate (Morphine Immediate Release Tab) 15 mg PO BID [facility] Last Admin: 07/20/18 17:57 Dose: 15 mg Lubiprostone [ Amitiza] 24 Mcg ( Home Med) 24 mcg PO BID [facility] Last Admin: 07/21/18 09:13 Dose: Not Given Ondansetron HCl (Zofran Inj) 4 mg IVP Q6H PRN PRN Reason: Nausea/Vomiting Oxycodone/Acetaminophen (Percocet 10/325 Mg Tab) 1 tab PO TID PRN PRN Reason: Pain, moderate (4-7) Last Admin: 07/21/18 08:03 Dose: 1 tab Warfarin Sodium (Coumadin) 4 mg PO DAILY [facility]; Protocol Last Admin: 07/21/18 09:12 Dose: 4 mg Zolpidem Tartrate (Ambien) 5 mg PO HS [facility]; Protocol Last Admin: 07/20/18 21:11 Dose: 5 mg - Labs Labs: 07/21/18 05:30 07/21/18 05:30 PT 16.2 SECONDS (9.4-12.5) H 07/21/18 05:30 INR 1.40 07/21/18 05:30 APTT 36.4 Seconds (25.1-36.5) 07/20/18 08:35 - Additional Findings Additional findings: - Constitutional Appears: No Acute Distress - Head Exam Head Exam: ATRAUMATIC, NORMAL INSPECTION, NORMOCEPHALIC - Eye Exam Eye Exam: Normal appearance, PERRL - ENT Exam ENT Exam: Mucous Membranes Moist - Neck Exam Neck exam: Positive for: Full Rom, Normal Inspection. Negative for: Meningismus, Tenderness Additional comments: bilateral neck scars - Respiratory Exam Respiratory Exam: Rhonchi, Wheezes (bilaterally ), NORMAL BREATHING PATTERN. absent: Rales, Respiratory Distress, Stridor - Cardiovascular Exam Cardiovascular Exam: REGULAR RHYTHM, +S1, +S2. absent: Gallop, Rubs, Systolic Murmur - GI/Abdominal Exam GI & Abdominal Exam: Normal Bowel Sounds, Soft. absent: Guarding, Mass, Rebound, Rigid, Tenderness - Extremities Exam Extremities exam: Positive for: normal inspection. Negative for: calf tenderness, pedal edema - Neurological Exam Neurological exam: Alert, CN II-XII Intact, Oriented x3 - Psychiatric Exam Psychiatric exam: Normal Affect, Normal Mood - Skin Skin Exam: Dry, Intact, Normal Color, Warm Assessment and Plan - Assessment and Plan (Free Text) Assessment: Shortness of breath - most likely secondary to COPD exacerbation GEORGE on CKD IIIA - possibly pre-renal CAD s/p CABG A.fib (on Coumadin) Mechanical mitral valve Ischemic cardiomyopathy s/p pacer/AICD HTN HLD DM II Compression fractures on chronic pain medication Iron deficiency Anemia- stable CVA Peripheral neuropathy Hypothyroidism Plan: Labs and imaging reviewed. Patient is on Zithromax, Duonebs, Robitussin, Solumedrol 40 mg q12 as well as Brovana and Pulmicort for COPD exacerbation. CXR did not show evidence of pneumonia but showed mild to moderate cardiomegatly with mild vascular and interstitial congestion. Patient has extensive cardiac history, cardiology consulted. Will continue medications of Lipitor, Coumadin, Imdur. INR is subtherapeutic, continue to monitor. Will consult heme/ocn Dr Newman. Metformin on hold and will place patient on insulin sliding scale. Will continue patient home pain medications, Morphine instant release and percocet. Continue Synthroid for hypothyroidism. Patient is on Pepcid and Zofran for nausea. Will get PT eval. Case seen, discussed and reviewed with Dr. Lincoln <Joaquín Lincoln S - Last Filed: 07/22/18 18:15> Objective - Vital Signs/Intake and Output Vital Signs (last 24 hours): Temp Pulse Resp BP Pulse Ox 97.5 F L 80 18 116/85 99 07/22/18 09:06 07/22/18 09:06 07/22/18 09:06 07/22/18 09:06 07/22/18 09:06 Intake and Output: 07/22/18 07/22/18 06:59 18:59 Intake Total 60 Balance 60 - Labs Labs: 07/22/18 06:10 07/22/18 06:10 PT 18.6 SECONDS (9.4-12.5) H 07/22/18 06:10 INR 1.60 07/22/18 06:10 APTT 26.8 Seconds (25.1-36.5) 07/22/18 09:45 Assessment and Plan - Assessment and Plan (Free Text) Plan: Pt seen and examined by me. This is a late entry. I have reviewed the note by the medical device sales consultant. The case was discussed and reviewed with the resident. I reviewed the medications and labs. Pt with acute COPD. She will be placed on Solumedrol and Duoneb. Pt had a CXR and it did not show a pneumonia. Pt will need Oncology evaluation. She will have to be placed on ISS and have insulin coverage. She will be on Synthroid for hypothyroisdism. Pt will need to be seen by PT and may need TCU vs [facility].
[2018-07-21] MEDS: Morphine 15 mg Immediate Release Tab PO SCH ×2 (11:26→17:12)
--- NOTE | 2018-07-21 13:15 | CP.PCM.CON ---
History of Present Illness - History of Present Illness History of Present Illness: Tristan Mayersguis PGY2 Heme/Onc Consult Note for Dr. Newman Ms. Ohara is a 78-year-old female with a PMH of breast CA s/p right breast mastectomy with compression fractures, anemia, A. fib and with a mechanical mitral valve (on Coumadin), AICD, CAD, CVA with residual left-sided weakness, DM 2, CKD stage III, angiodysplasia with GI bleed, COPD who presented to the ED for shortness of breath, productive cough and weakness. Oncology service consulted for history of breast CA. when asked, the patient denies the history of CA, however according to Dr. Newman, the patient, who is well known to him and was last seen in the office about 2 weeks ago does have a confirmed history of breast CA post right mastectomy and XRT. On evaluation, the patient states that her breathing has slightly improved since being in the hospital and receiving treatments. She denies any fever/chills, difficulty swallowing, headaches, dizziness, chest pain or abdominal pain or dysuria. 12 point ROS was reviewed and is otherwise unremarkable PMH: As above PSH: CABG, AICD, mechanical MV replacement, Meds: Reviewed, as per MAR Allergies: Sulfa drugs SHX: Uses tobacco daily >50 years, denies EtOH or drug use. Lives alone, has home health aide. States she would like a motorized electric wheelchair. SHX: Heart disease PMD: Dr. waite Cardiology: Dr. Pedro Review of Systems - Review of Systems All systems: reviewed and no additional remarkable complaints except (as per HPI) Past Patient History - Infectious Disease Hx of Infectious Diseases: None - Tetanus Immunizations Tetanus Immunization: Unknown - Past Social History Smoking Status: Light Smoker < 10 Cigarettes Daily Alcohol: None Drugs: Denies Home Situation {Lives}: Alone - CARDIAC Hx Cardiac Disorders: Yes (5 stents; CABG) Hx Congestive Heart Failure: Yes Hx Hypertension: Yes - PULMONARY Hx Chronic Obstructive Pulmonary Disease (COPD): Yes - NEUROLOGICAL HX Cerebrovascular Accident: Yes - HEENT Hx HEENT Problems: Yes Hx Cataracts: Yes (sx b/l) Other/Comment: eye glasses - RENAL Hx Renal Failure: Yes - ENDOCRINE/METABOLIC Hx Diabetes Mellitus Type 2: Yes Hx Hypothyroidism: Yes - HEMATOLOGICAL/ONCOLOGICAL Hx Blood Disorders: Yes Hx Anemia: Yes (iron deficiency-IRON INFUSIONS) - INTEGUMENTARY Hx Dermatological Problems: No - MUSCULOSKELETAL/RHEUMATOLOGICAL Hx Arthritis: Yes - GASTROINTESTINAL Hx Gastrointestinal Disorders: Yes (gastritis/ hiatal hernia, gi bleed) Hx Pancreatitis: Yes Other/Comment: hiatal hernia:GI Bleed;gastritis - GENITOURINARY/GYNECOLOGICAL Hx Genitourinary Disorders: No - PSYCHIATRIC Hx Psychophysiologic Disorder: Yes (SMOKES 5 CIG A DAY. SMOKED FOR 50 YRS) Hx Anxiety: Yes Hx Depression: Yes - SURGICAL HISTORY Hx Cardiac Catheterization: Yes (5 stents) Hx Coronary Stent: Yes (5) Hx Open Heart Surgery: Yes - ANESTHESIA Hx Anesthesia Reactions: No Hx Malignant Hyperthermia: No Meds Allergies/Adverse Reactions: Allergies Allergy/AdvReac Type Severity Reaction Status Date / Time Sulfa (Sulfonamide Allergy Mild RASH Verified 01/29/18 15:09 Antibiotics) - Medications Medications: Current Medications Albuterol/Ipratropium (Duoneb 3 Mg/0.5 Mg (3 Ml) Ud) 3 ml IH Q2H PRN PRN Reason: Shortness of Breath Last Admin: 07/20/18 23:37 Dose: 3 ml Albuterol/Ipratropium (Duoneb 3 Mg/0.5 Mg (3 Ml) Ud) 3 ml IH [id number] [facility] Last Admin: 07/21/18 08:32 Dose: 3 ml Arformoterol Tartrate (Brovana) 15 mcg IH [id number] [facility] Last Admin: 07/21/18 08:32 Dose: 15 mcg Atorvastatin Calcium (Lipitor) 10 mg PO DIN [facility] Last Admin: 07/20/18 17:57 Dose: 10 mg Benzocaine/Menthol (Cepacol Sore Throat) 1 stephanie MT Q2H PRN PRN Reason: Sore Throat Last Admin: 07/20/18 23:30 Dose: 1 stephanie Clonidine HCl (Catapres) 0.1 mg PO BID PRN PRN Reason: Systolic Blood Pressure Famotidine (Pepcid) 20 mg PO BID [facility] Last Admin: 07/21/18 09:12 Dose: 20 mg Guaifenesin (Robitussin) 100 mg PO Q4H PRN PRN Reason: Cough Last Admin: 07/21/18 09:22 Dose: 100 mg Azithromycin (Zithromax 500mg In Ns) 500 mg in 250 mls @ 167 mls/hr IVPB DAILY [facility]; Protocol Last Admin: 07/21/18 09:12 Dose: 167 mls/hr Insulin Human Regular (Humulin R Low) 0 units SC ACHS [facility]; Protocol Last Admin: 07/21/18 11:47 Dose: Not Given Isosorbide Mononitrate (Imdur) 60 mg PO DAILY [facility] Last Admin: 07/21/18 09:12 Dose: 60 mg Levothyroxine Sodium (Synthroid) 75 mcg PO DAILY [facility] Last Admin: 07/21/18 09:12 Dose: 75 mcg Methylprednisolone (Solu-Medrol) 40 mg IVP Q12 [facility] Last Admin: 07/21/18 09:12 Dose: 40 mg Morphine Sulfate (Morphine Immediate Release Tab) 15 mg PO BID [facility] Last Admin: 07/21/18 11:26 Dose: Not Given Lubiprostone [ Amitiza] 24 Mcg ( Home Med) 24 mcg PO BID [facility] Last Admin: 07/21/18 09:13 Dose: Not Given Ondansetron HCl (Zofran Inj) 4 mg IVP Q6H PRN PRN Reason: Nausea/Vomiting Oxycodone/Acetaminophen (Percocet 10/325 Mg Tab) 1 tab PO TID PRN PRN Reason: Pain, moderate (4-7) Last Admin: 07/21/18 08:03 Dose: 1 tab Warfarin Sodium (Coumadin) 4 mg PO DAILY [facility]; Protocol Last Admin: 07/21/18 09:12 Dose: 4 mg Zolpidem Tartrate (Ambien) 5 mg PO HS [facility]; Protocol Last Admin: 07/20/18 21:11 Dose: 5 mg Physical Exam - Constitutional Appears: Well, Non-toxic, No Acute Distress - Head Exam Head Exam: NORMAL INSPECTION - Eye Exam Eye Exam: Normal appearance - ENT Exam ENT Exam: Mucous Membranes Moist - Neck Exam Neck exam: Positive for: Normal Inspection - Respiratory Exam Respiratory Exam: Rales, Wheezes (diffuse), NORMAL BREATHING PATTERN. absent: Respiratory Distress - Cardiovascular Exam Cardiovascular Exam: Irregular Rhythm, +S1, +S2 Additional comments: mechanical valve auscultated - GI/Abdominal Exam GI & Abdominal Exam: Soft. absent: Distended, Tenderness - Extremities Exam Extremities exam: Positive for: normal inspection. Negative for: full ROM (limited but capable of moving left sided extremities, full ROM right side), pedal edema - Neurological Exam Neurological exam: Alert Additional comments: oriented x2 (person and place) - Psychiatric Exam Psychiatric exam: Normal Mood - Skin Skin Exam: Normal Color Results - Vital Signs Recent Vital Signs: Last Vital Signs Temp 97.8 F 07/21/18 08:52 Pulse 95 H 07/21/18 10:00 Resp 20 07/21/18 08:52 BP 146/96 H 07/21/18 08:52 Pulse Ox 99 07/21/18 08:52 - Labs Result Diagrams: 07/21/18 05:30 07/21/18 05:30 Labs: Laboratory Results - last 24 hr 07/21/18 07/21/18 07/21/18 05:30 05:30 05:30 WBC 3.9 L RBC 3.12 L Hgb 10.2 L Hct 31.1 L MCV 99.7 MCH 32.7 MCHC 32.8 RDW 14.9 H Plt Count 135 MPV 10.9 PT 16.2 H INR 1.40 Sodium 138 Potassium 5.1 H Chloride 106 Carbon Dioxide 23 Anion Gap 15 BUN 24 H Creatinine 1.6 H Est GFR ( Amer) 38 Est GFR (Non-Af Amer) 31 POC Glucose (mg/dL) Random Glucose 147 H Calcium 9.1 Total Bilirubin 0.9 AST 27 ALT 22 Alkaline Phosphatase 128 H Total Protein 7.2 Albumin 4.1 Globulin 3.1 Albumin/Globulin Ratio 1.3 07/21/18 07/21/18 07:09 11:23 WBC RBC Hgb Hct MCV MCH MCHC RDW Plt Count MPV PT INR Sodium Potassium Chloride Carbon Dioxide Anion Gap BUN Creatinine Est GFR ( Amer) Est GFR (Non-Af Amer) POC Glucose (mg/dL) 134 H 139 H Random Glucose Calcium Total Bilirubin AST ALT Alkaline Phosphatase Total Protein Albumin Globulin Albumin/Globulin Ratio Assessment & Plan - Assessment and Plan (Free Text) Assessment: 78-year-old female with a PMH of breast CA s/p right breast mastectomy with compression fractures, anemia, A. fib and with a mechanical mitral valve (on Coumadin), AICD, CAD, CVA with residual left-sided weakness, DM 2, CKD stage III, angiodysplasia with GI bleed, COPD who presented to the ED for shortness of breath, productive cough and weakness. Oncology service consulted for history of breast CA. Given her Afib and mechanical valve, the patient 's goal INR is optimally 3, however, given her hx of supratherapeutic INR and age, INR of at least 2.5 should be sufficient. Labs, VS and other notes in chart were reviewed. Patient is started on Lovenox with increased Coumadin to bridge her back to a therapeutic INR. Plan: Cont Lovenox as per Cardio recs Cont Coumadin w/ goal INR at least 2.5, optimal target 3 daily INR check Labs order for anemia: retic count, ferritin, transferrin, B12, folate PT evaluation appreciated No further recs regarding her breast CA at this time Management per primary team Further recs per Dr. Newman Case was reviewed and discussed with attending, Dr. Paty Matias PGY2
--- NOTE | 2018-07-21 22:46 | CON ---
DATE: 07/21/2018 REASON FOR CONSULTATION: Cardiac evaluation, history of coronary artery disease with CABG, history of AICD placed, history of mechanical mitral valve placement. Cardiac evaluation, admitted with shortness of breath, possible acute bronchitis, COPD exacerbation. BRIEF CLINICAL HISTORY: This is a 78-year-old female with past medical history significant for coronary artery disease, status post CABG, status post AICD, history of angiodysplasia, multiple GI bleed in the past. History of chronic atrial fibrillation, history of cardiomyopathy, ischemia, status post AICD, history of mechanical mitral valve replacement, history of multiple transfusions, as mentioned with history of angiodysplasia of colon, history of CVA, history of hypertension, hyperlipidemia, history of CVA, history of TIA, history of diabetes, history of peripheral neuropathy, history of mastectomy and breast CA. PREVIOUS CARDIAC WORKUP: As follows, history of atrial fibrillation, history of multiple failed VIMAL cardioversion, most recently echo, 03/24/2015, ejection fraction 25-30%, trace aortic regurgitation, [id number] aortic stenosis, trace mitral regurgitation, status post MVR mechanical, moderate tricuspid regurgitation, RV systolic pressure of 40, history of pacemaker, AICD lead noted in RA and RV. Last stress test on 04/25/2015 shows multiple fixed defects, no reversible ischemia. Ejection fraction 25%. EKG shows V-paced rhythm. The patient repeated stress test on 03/13/2017 that shows abnormal myocardial perfusion study, fixed defect, no reversible ischemia, severe LV dysfunction, ejection fraction 20% dated 03/13/2017 and most recent echo of the patient dated 01/31/2018 that shows ejection fraction 45%, mild aortic regurgitation and moderate valvular aortic stenosis, mechanical mitral valve normal functioning, trace mitral regurgitation, [id number] tricuspid regurgitation, RV systolic pressure of 42. Mild pulmonary hypertension, ejection fraction calculated 40-45% dated 01/31/2018. SOCIAL HISTORY: Denies any history of alcohol abuse. CURRENT MEDICATIONS: Patient at home was taking levothyroxine, acetaminophen, Coumadin 1 mg and 4 mg alternate, metformin, Amitiza, isosorbide nitrate. REVIEW OF SYSTEMS: As per HPI. ALLERGIES: ALLERGIC TO SULFA. PHYSICAL EXAMINATION: VITAL SIGNS: Temperature afebrile, heart rate 95, blood pressure 142/96. HEENT: PERRLA. Extraocular muscles intact. NECK: Supple. No carotid bruit or thyromegaly. CHEST: Clear to auscultation. Scattered rhonchi noted all over the chest. ABDOMEN: Soft. EXTREMITIES: Clubbing and cyanosis negative. EKG shows V-paced rhythm, underlying atrial fibrillation. LABORATORY DATA: Blood workup, WBC 3.9, hemoglobin 10.2, hematocrit 31.1, platelet count 135. Chemistry shows sodium 130, potassium 5.1, chloride 106, carbon dioxide 23, anion gap of 15, BUN 24, creatinine 1.6. INR subtherapeutic at 1.4. IMPRESSION: A 78-year-old seen with past medical history significant for coronary artery disease, status post coronary artery bypass graft, status post mechanical valve repair; history of cerebrovascular accident, transient ischemic attack, history of multiple gastrointestinal bleeds, angiodysplasia of the colon; history of automatic implantable cardioverter-defibrillator placement, history of breast carcinoma, status post mastectomy, supratherapeutic INR, admitted with acute exacerbation of congestive heart failure. RECOMMENDATIONS: The patient has renal insufficiency with the creatinine clearance of 31 mL, so we will give 1 dose of Lovenox 1 mg/kg every 24 hours until the INR gets therapeutic. First dose now and repeat another second dose of Lovenox tomorrow. Increase the Coumadin to 5 mg daily. Monitor PT/INR. Interim, continue Lovenox as a bridge. Agreed to continue gentle diuretics, aggressive treatment for COPD. We will follow with you. Chest x-ray reviewed, minimal congestion. We will also put 40 mg of Lasix today followed by 40 in morning. Thank you, for the opportunity in taking care of the patient, Franchesca Ohara. I will follow with you. Cyril Naranjo MD
[2018-07-22] MEDS: Albuterol-Ipratrop 3 mg / 0.5 (3 ml) UD IH SCH ×3 (02:14→13:38)
[2018-07-22 06:38] LABS: GRAN % 94.5 % (50.0-68.0); HEMOGLOBIN 8.8 g/dL (12.0-16.0); LYMPH # 0.1 (1.2-3.4); LYMPH % 3.7 % (22.0-35.0); MEAN CELL VOLUME 99.3 fl (80.0-105.0); MEAN CORPUSCULAR HGB CONC 32.2 g/dl (31.0-37.0); MEAN PLATELET VOLUME 10.6 fl (7.0-11.0); MONO # 0.1 (0.1-0.6); MONO % 1.8 % (1.0-6.0); PLATELET COUNT 121 10^3/uL (120.0-450.0); RBC 2.75 10^6/uL (3.5-6.1); WHITE BLOOD COUNT 3.8 10^3/ul (4.5-11.0)
[2018-07-22 06:47] LABS: INR 1.6; PROTHROMBIN TIME 18.6 SECONDS (9.4-12.5)
[2018-07-22 07:09] LABS: IRON 77 ug/dL (45-180)
[2018-07-22 07:15] LABS: ALB/GLOB RATIO 1.3 (1.1-1.8); ALBUMIN 3.7 g/dL (3.0-4.8); CALCIUM 8.8 mg/dL (8.4-10.5)
[2018-07-22 07:18] LABS: % IRON SATURATION 37 % (20-55); TOTAL IRON BINDING CAPACITY 207 ug/dL (265-497)
[2018-07-22] MEDS: Arformoterol 15 mcg/2 ml Inh Sol IH SCH (07:31)
--- NOTE | 2018-07-22 07:38 | CP.PCM.PN ---
Subjective - Date & Time of Evaluation Date of Evaluation: 07/22/18 Time of Evaluation: 06:25 - Subjective Subjective: Awake, alert, no distress Reason for consultation and follow up:Cardiac evaluation of shortness of breath, history of coronary artery disease, status post coronary artery bypass grafting,status post mechanical mitral valve replacement, AICD. See and examined by me and Dr. Naranjo Objective - Vital Signs/Intake and Output Vital Signs (last 24 hours): Temp Pulse Resp BP Pulse Ox 98.6 F 88 20 120/83 98 07/21/18 17:37 07/21/18 17:37 07/21/18 17:37 07/21/18 17:37 07/21/18 17:37 Intake and Output: 07/22/18 07/22/18 06:59 18:59 Intake Total 60 Balance 60 - Medications Medications: Current Medications Albuterol/Ipratropium (Duoneb 3 Mg/0.5 Mg (3 Ml) Ud) 3 ml IH Q2H PRN PRN Reason: Shortness of Breath Last Admin: 07/20/18 23:37 Dose: 3 ml Albuterol/Ipratropium (Duoneb 3 Mg/0.5 Mg (3 Ml) Ud) 3 ml IH [id number] [facility] Last Admin: 07/22/18 07:31 Dose: 3 ml Arformoterol Tartrate (Brovana) 15 mcg IH [id number] [facility] Last Admin: 07/22/18 07:31 Dose: 15 mcg Atorvastatin Calcium (Lipitor) 10 mg PO DIN [facility] Last Admin: 07/21/18 17:10 Dose: 10 mg Benzocaine/Menthol (Cepacol Sore Throat) 1 stephanie MT Q2H PRN PRN Reason: Sore Throat Last Admin: 07/20/18 23:30 Dose: 1 stephanie Clonidine HCl (Catapres) 0.1 mg PO BID PRN PRN Reason: Systolic Blood Pressure Enoxaparin Sodium (Lovenox) 50 mg SC DAILY [facility]; Protocol Stop: 07/23/18 23:59 Famotidine (Pepcid) 20 mg PO BID [facility] Last Admin: 07/21/18 17:10 Dose: 20 mg Furosemide (Lasix) 40 mg PO DAILY [facility] Guaifenesin (Robitussin) 100 mg PO Q4H PRN PRN Reason: Cough Last Admin: 07/21/18 09:22 Dose: 100 mg Azithromycin (Zithromax 500mg In Ns) 500 mg in 250 mls @ 167 mls/hr IVPB DAILY [facility]; Protocol Last Admin: 07/21/18 09:12 Dose: 167 mls/hr Insulin Human Regular (Humulin R Low) 0 units SC ACHS [facility]; Protocol Last Admin: 07/21/18 21:52 Dose: Not Given Isosorbide Mononitrate (Imdur) 60 mg PO DAILY [facility] Last Admin: 07/21/18 09:12 Dose: 60 mg Levothyroxine Sodium (Synthroid) 75 mcg PO DAILY [facility] Last Admin: 07/21/18 09:12 Dose: 75 mcg Methylprednisolone (Solu-Medrol) 40 mg IVP Q12 [facility] Last Admin: 07/21/18 21:54 Dose: 40 mg Morphine Sulfate (Morphine Immediate Release Tab) 15 mg PO BID [facility] Last Admin: 07/21/18 17:12 Dose: 15 mg Lubiprostone [ Amitiza] 24 Mcg ( Home Med) 24 mcg PO BID [facility] Last Admin: 07/21/18 17:10 Dose: Not Given Ondansetron HCl (Zofran Inj) 4 mg IVP Q6H PRN PRN Reason: Nausea/Vomiting Oxycodone/Acetaminophen (Percocet 10/325 Mg Tab) 1 tab PO TID PRN PRN Reason: Pain, moderate (4-7) Last Admin: 07/21/18 08:03 Dose: 1 tab Warfarin Sodium (Coumadin) 5 mg PO DAILY [facility]; Protocol Zolpidem Tartrate (Ambien) 5 mg PO HS [facility]; Protocol Last Admin: 07/21/18 21:51 Dose: 5 mg - Labs Labs: 07/22/18 06:10 07/22/18 06:10 PT 18.6 SECONDS (9.4-12.5) H 07/22/18 06:10 INR 1.60 07/22/18 06:10 APTT 36.4 Seconds (25.1-36.5) 07/20/18 08:35 - Constitutional Appears: Non-toxic, No Acute Distress - Head Exam Head Exam: NORMOCEPHALIC - ENT Exam ENT Exam: Mucous Membranes Dry - Respiratory Exam Respiratory Exam: Decreased Breath Sounds, Rhonchi, NORMAL BREATHING PATTERN - Cardiovascular Exam Cardiovascular Exam: +S1, +S2 Additional comments: AICD Right chest port - GI/Abdominal Exam GI & Abdominal Exam: Soft, Normal Bowel Sounds - Neurological Exam Neurological Exam: Alert, Awake, Oriented x3 - Psychiatric Exam Psychiatric exam: Normal Affect, Normal Mood - Skin Skin Exam: Dry, Normal Color, Warm Assessment and Plan - Assessment and Plan (Free Text) Assessment: A 78 year old female who came in to the ER due to shortness of breath for 2 days. with productive cough. History of coronary artery disease, status post coronary artery bypass grafting,status post mechanical mitral valve replacement,PPM/ AICD, Atrial fibrillation (on Coumadin),multiple failed VIMAL cardioversion, hypertension, hypothyroidism,hyperlipidemia, former smoker,CVA, diabetes mellitus type 2,GI bleed from angiodysplasia, COPD,compression fractures (chronic pain) chronic kidney disease, peripheral neuropathy,breast cancer s/p mastectomy and radiation. Exacerbation of COPD ,Subtherapeutic INR, started on Lovenox with Coumadin until INR therapeutic. Plan: No distress,awake Heart rate and blood pressure stable Continue to diurese with Lasix Continue Lovenox until INR therapeutic with Coumadin Continue nebulizer treatments Continue IV antibiotics as ordered Continue current treatment On Catapres 0.1 mg BID PRN,Lovenox 50 mg SQ daily, Lasix 40 mg daily,Imdur 60 mg daily,Synthroid 75 mcg daily, Coumadin 5 mg daily TSH 33.3 today, will increase Synthroid. Chart reviewed Will follow up Plan and treatment discussed with Dr. Naranjo
[2018-07-22 07:52] LABS: LYMPHOCYTE 1 % (22.0-35.0); MONOCYTE 2 % (1.0-6.0); NEUTROPHIL 97 % (50.0-70.0)
[2018-07-22 07:53] LABS: PLATELET ESTIMATE NORMAL (NORMAL)
[2018-07-22] MEDS: Insulin Reg-LOW-Coverage SC SCH ×2 (08:00→12:30)
[2018-07-22] MEDS ORDERED: Heparin25000 units/250ml 1/2NS 25,000 UNITS/250 ML BAG IV PRN (08:29)
[2018-07-22 09:07] VITALS: BP 116/85; PULSE 80; RESP 18; TEMP 97.5; O2SAT 99
--- NOTE | 2018-07-22 09:17 | CP.PCM.PN ---
<Phuong Dillon - Last Filed: 07/22/18 12:29> Subjective - Date & Time of Evaluation Date of Evaluation: 07/22/18 Time of Evaluation: 07:00 - Subjective Subjective: PGY-[address] Lincoln's service Patient seen and evaluated at bedside. No acute distress. Nurse reports no acute events over night. Patient states that her sob is better. She denies any abd pain, flank pain, chest pain. She is tolerating diet. Objective - Vital Signs/Intake and Output Vital Signs (last 24 hours): Temp Pulse Resp BP Pulse Ox 97.5 F L 80 18 116/85 99 07/22/18 09:06 07/22/18 09:06 07/22/18 09:06 07/22/18 09:06 07/22/18 09:06 Intake and Output: 07/22/18 07/22/18 06:59 18:59 Intake Total 60 Balance 60 - Medications Medications: Current Medications Albuterol/Ipratropium (Duoneb 3 Mg/0.5 Mg (3 Ml) Ud) 3 ml IH Q2H PRN PRN Reason: Shortness of Breath Last Admin: 07/20/18 23:37 Dose: 3 ml Albuterol/Ipratropium (Duoneb 3 Mg/0.5 Mg (3 Ml) Ud) 3 ml IH [id number] [facility] Last Admin: 07/22/18 07:31 Dose: 3 ml Arformoterol Tartrate (Brovana) 15 mcg IH [id number] [facility] Last Admin: 07/22/18 07:31 Dose: 15 mcg Atorvastatin Calcium (Lipitor) 10 mg PO DIN [facility] Last Admin: 07/21/18 17:10 Dose: 10 mg Benzocaine/Menthol (Cepacol Sore Throat) 1 stephanie MT Q2H PRN PRN Reason: Sore Throat Last Admin: 07/20/18 23:30 Dose: 1 stephanie Clonidine HCl (Catapres) 0.1 mg PO BID PRN PRN Reason: Systolic Blood Pressure Famotidine (Pepcid) 20 mg PO BID [facility] Last Admin: 07/21/18 17:10 Dose: 20 mg Guaifenesin (Robitussin) 100 mg PO Q4H PRN PRN Reason: Cough Last Admin: 07/21/18 09:22 Dose: 100 mg Azithromycin (Zithromax 500mg In Ns) 500 mg in 250 mls @ 167 mls/hr IVPB DAILY [facility]; Protocol Last Admin: 07/21/18 09:12 Dose: 167 mls/hr Heparin Sodium/Sodium Chloride (Heparin 47383 Units/250ml 1/2 Normal Saline) 25,000 units in 250 mls @ 9.716 mls/hr IV .Q24H PRN; Protocol PRN Reason: ADJUST RATE PER PROTOCOL Insulin Human Regular (Humulin R Low) 0 units SC ACHS [facility]; Protocol Last Admin: 07/22/18 08:00 Dose: Not Given Isosorbide Mononitrate (Imdur) 60 mg PO DAILY [facility] Last Admin: 07/21/18 09:12 Dose: 60 mg Levothyroxine Sodium (Synthroid) 100 mcg PO 0600 [facility] Methylprednisolone (Solu-Medrol) 40 mg IVP Q12 [facility] Last Admin: 07/21/18 21:54 Dose: 40 mg Morphine Sulfate (Morphine Immediate Release Tab) 15 mg PO BID [facility] Last Admin: 07/21/18 17:12 Dose: 15 mg Lubiprostone [ Amitiza] 24 Mcg ( Home Med) 24 mcg PO BID [facility] Last Admin: 07/21/18 17:10 Dose: Not Given Ondansetron HCl (Zofran Inj) 4 mg IVP Q6H PRN PRN Reason: Nausea/Vomiting Oxycodone/Acetaminophen (Percocet 10/325 Mg Tab) 1 tab PO TID PRN PRN Reason: Pain, moderate (4-7) Last Admin: 07/21/18 08:03 Dose: 1 tab Warfarin Sodium (Coumadin) 5 mg PO DAILY [facility]; Protocol Zolpidem Tartrate (Ambien) 5 mg PO HS [facility]; Protocol Last Admin: 07/21/18 21:51 Dose: 5 mg - Labs Labs: 07/22/18 06:10 07/22/18 06:10 PT 18.6 SECONDS (9.4-12.5) H 07/22/18 06:10 INR 1.60 07/22/18 06:10 APTT 36.4 Seconds (25.1-36.5) 07/20/18 08:35 - Additional Findings Additional findings: - Constitutional Appears: No Acute Distress - Head Exam Head Exam: ATRAUMATIC, NORMAL INSPECTION, NORMOCEPHALIC - Eye Exam Eye Exam: Normal appearance, PERRL - ENT Exam ENT Exam: Mucous Membranes Moist - Neck Exam Neck exam: Positive for: Full Rom, Normal Inspection. Negative for: Meningismus, Tenderness Additional comments: bilateral neck scars - Respiratory Exam Respiratory Exam: Rhonchi, Wheezes (bilaterally, improved), NORMAL BREATHING PATTERN. absent: Rales, Respiratory Distress, Stridor - Cardiovascular Exam Cardiovascular Exam: REGULAR RHYTHM, +S1, +S2. absent: Gallop, Rubs, Systolic Murmur - GI/Abdominal Exam GI & Abdominal Exam: Normal Bowel Sounds, Soft. absent: Guarding, Mass, Rebound, Rigid, Tenderness - Extremities Exam Extremities exam: Positive for: normal inspection. Negative for: calf tenderness, pedal edema - Neurological Exam Neurological exam: Alert, CN II-XII Intact, Oriented x3 - Psychiatric Exam Psychiatric exam: Normal Affect, Normal Mood - Skin Skin Exam: Dry, Intact, Normal Color, Warm Assessment and Plan - Assessment and Plan (Free Text) Assessment: Shortness of breath - most likely secondary to COPD exacerbation GEORGE on CKD IIIA - possibly pre-renal CAD s/p CABG A.fib (on Coumadin) Mechanical mitral valve Ischemic cardiomyopathy s/p pacer/AICD HTN HLD DM II Compression fractures on chronic pain medication Iron deficiency Anemia- stable CVA Peripheral neuropathy Hypothyroidism Plan: Labs and imaging reviewed. Patient is on Zithromax, Duonebs, Robitussin, Brovana and Pulmicort for COPD exacerbation. Patient continues to have significant wheezing will continue Solumedrol 40 mg q12. CXR did not show evidence of pneumonia but showed mild to moderate cardiomegaly with mild va scular and interstitial congestion. Patient has extensive cardiac history, cardiology consulted, recommended warfarin 5mg daily and lovenix until therapeutic however will start heparin due to renal function. TSH elevated most likely due to nonadherence of medications will continue Synthroid. continue medications of Lipitor, Coumadin, Imdur. heme/onc Dr Newman consulted. Metformin on hold and will place patient on insulin sliding scale. Will continue patient home pain medications, Morphine instant release and percocet. Patient is on Pepcid and Zofran for nausea. PT recommended TCU, waiting for approval. Case seen, discussed and reviewed with Dr. Lincoln <Joaquín Lincoln S - Last Filed: 07/22/18 16:11> Objective - Vital Signs/Intake and Output Vital Signs (last 24 hours): Temp Pulse Resp BP Pulse Ox 97.5 F L 80 18 116/85 99 07/22/18 09:06 07/22/18 09:06 07/22/18 09:06 07/22/18 09:06 07/22/18 09:06 Intake and Output: 07/22/18 07/22/18 06:59 18:59 Intake Total 60 Balance 60 - Medications Medications: Current Medications Albuterol/Ipratropium (Duoneb 3 Mg/0.5 Mg (3 Ml) Ud) 3 ml IH Q2H PRN PRN Reason: Shortness of Breath Last Admin: 07/20/18 23:37 Dose: 3 ml Albuterol/Ipratropium (Duoneb 3 Mg/0.5 Mg (3 Ml) Ud) 3 ml IH [id number] [facility] Last Admin: 07/22/18 13:38 Dose: 3 ml Arformoterol Tartrate (Brovana) 15 mcg IH [id number] [facility] Last Admin: 07/22/18 07:31 Dose: 15 mcg Atorvastatin Calcium (Lipitor) 10 mg PO DIN [facility] Last Admin: 07/21/18 17:10 Dose: 10 mg Benzocaine/Menthol (Cepacol Sore Throat) 1 stephanie MT Q2H PRN PRN Reason: Sore Throat Last Admin: 07/20/18 23:30 Dose: 1 stephanie Clonidine HCl (Catapres) 0.1 mg PO BID PRN PRN Reason: Systolic Blood Pressure Famotidine (Pepcid) 20 mg PO BID [facility] Last Admin: 07/22/18 09:34 Dose: 20 mg Guaifenesin (Robitussin) 100 mg PO Q4H PRN PRN Reason: Cough Last Admin: 07/21/18 09:22 Dose: 100 mg Azithromycin (Zithromax 500mg In Ns) 500 mg in 250 mls @ 167 mls/hr IVPB DAILY [facility]; Protocol Last Admin: 07/22/18 14:05 Dose: 167 mls/hr Heparin Sodium/Sodium Chloride (Heparin 75231 Units/250ml 1/2 Normal Saline) 25,000 units in 250 mls @ 9.716 mls/hr IV .Q24H PRN; Protocol PRN Reason: ADJUST RATE PER PROTOCOL Last Admin: 07/22/18 10:35 Dose: 18 units/kg/hr, 9.716 mls/hr Insulin Human Regular (Humulin R Low) 0 units SC ACHS [facility]; Protocol Last Admin: 07/22/18 12:30 Dose: Not Given Isosorbide Mononitrate (Imdur) 60 mg PO DAILY [facility] Last Admin: 07/22/18 09:34 Dose: 60 mg Levothyroxine Sodium (Synthroid) 100 mcg PO 0600 [facility] Methylprednisolone (Solu-Medrol) 40 mg IVP Q12 [facility] Last Admin: 07/22/18 09:33 Dose: 40 mg Morphine Sulfate (Morphine Immediate Release Tab) 15 mg PO BID [facility] Last Admin: 07/22/18 09:34 Dose: 15 mg Lubiprostone [ Amitiza] 24 Mcg ( Home Med) 24 mcg PO BID [facility] Last Admin: 07/22/18 09:35 Dose: Not Given Ondansetron HCl (Zofran Inj) 4 mg IVP Q6H PRN PRN Reason: Nausea/Vomiting Oxycodone/Acetaminophen (Percocet 10/325 Mg Tab) 1 tab PO TID PRN PRN Reason: Pain, moderate (4-7) Last Admin: 07/21/18 08:03 Dose: 1 tab Warfarin Sodium (Coumadin) 5 mg PO DAILY [facility]; Protocol Last Admin: 07/22/18 09:34 Dose: 5 mg Zolpidem Tartrate (Ambien) 5 mg PO HS [facility]; Protocol Last Admin: 07/21/18 21:51 Dose: 5 mg - Labs Labs: 07/22/18 06:10 07/22/18 06:10 PT 18.6 SECONDS (9.4-12.5) H 07/22/18 06:10 INR 1.60 07/22/18 06:10 APTT 26.8 Seconds (25.1-36.5) 07/22/18 09:45 Assessment and Plan - Assessment and Plan (Free Text) Plan: Pt seen and examined by me. I have reviewed the note by the medical director occupational health. The case was discussed and reviewed with the resident. I reviewed the medications and labs. Pt with acute COPD. She is on Solumedrol and Duoneb for tr eatment. She is on anticoagulation. She has not been adherent to her medication. Her TSH is elevated. She has hypothyroidism. Pt is being followed by Paty. FS and ISS with insulin coverage. Pt will need PT and probable TCU.
[2018-07-22] MEDS: MethylPREDNISolone 40 mg Vial IVP SCH (09:33)
[2018-07-22] MEDS: Morphine 15 mg Immediate Release Tab PO SCH (09:34)
[2018-07-22] MEDS: LUBIPROSTONE 24 MCG PO SCH (09:35)
--- NOTE | 2018-07-22 09:40 | CP.PCM.PN ---
Subjective - Date & Time of Evaluation Date of Evaluation: 07/22/18 Time of Evaluation: 09:19 - Subjective Subjective: Tristan Matias PGY2 Heme/Onc Progress Note for Dr. Newman Patient was seen and examined at bedside. She states that she is still short of breath and wheezing on exertion, and therefore not able to get out of bed. Otherwise, she denies any headaches, dizziness, chest pain, fevers/chills, nausea/vomiting/diarrhea. Objective - Vital Signs/Intake and Output Vital Signs (last 24 hours): Temp Pulse Resp BP Pulse Ox 97.5 F L 80 18 116/85 99 07/22/18 09:06 07/22/18 09:06 07/22/18 09:06 07/22/18 09:06 07/22/18 09:06 Intake and Output: 07/22/18 07/22/18 06:59 18:59 Intake Total 60 Balance 60 - Medications Medications: Current Medications Albuterol/Ipratropium (Duoneb 3 Mg/0.5 Mg (3 Ml) Ud) 3 ml IH Q2H PRN PRN Reason: Shortness of Breath Last Admin: 07/20/18 23:37 Dose: 3 ml Albuterol/Ipratropium (Duoneb 3 Mg/0.5 Mg (3 Ml) Ud) 3 ml IH [id number] [facility] Last Admin: 07/22/18 07:31 Dose: 3 ml Arformoterol Tartrate (Brovana) 15 mcg IH [id number] [facility] Last Admin: 07/22/18 07:31 Dose: 15 mcg Atorvastatin Calcium (Lipitor) 10 mg PO DIN [facility] Last Admin: 07/21/18 17:10 Dose: 10 mg Benzocaine/Menthol (Cepacol Sore Throat) 1 stephanie MT Q2H PRN PRN Reason: Sore Throat Last Admin: 07/20/18 23:30 Dose: 1 stephanie Clonidine HCl (Catapres) 0.1 mg PO BID PRN PRN Reason: Systolic Blood Pressure Famotidine (Pepcid) 20 mg PO BID [facility] Last Admin: 07/22/18 09:34 Dose: 20 mg Guaifenesin (Robitussin) 100 mg PO Q4H PRN PRN Reason: Cough Last Admin: 07/21/18 09:22 Dose: 100 mg Azithromycin (Zithromax 500mg In Ns) 500 mg in 250 mls @ 167 mls/hr IVPB DAILY [facility]; Protocol Last Admin: 07/21/18 09:12 Dose: 167 mls/hr Heparin Sodium/Sodium Chloride (Heparin 95801 Units/250ml 1/2 Normal Saline) 25,000 units in 250 mls @ 9.716 mls/hr IV .Q24H PRN; Protocol PRN Reason: ADJUST RATE PER PROTOCOL Insulin Human Regular (Humulin R Low) 0 units SC ACHS [facility]; Protocol Last Admin: 07/22/18 08:00 Dose: Not Given Isosorbide Mononitrate (Imdur) 60 mg PO DAILY [facility] Last Admin: 07/22/18 09:34 Dose: 60 mg Levothyroxine Sodium (Synthroid) 100 mcg PO 0600 [facility] Methylprednisolone (Solu-Medrol) 40 mg IVP Q12 [facility] Last Admin: 07/22/18 09:33 Dose: 40 mg Morphine Sulfate (Morphine Immediate Release Tab) 15 mg PO BID [facility] Last Admin: 07/22/18 09:34 Dose: 15 mg Lubiprostone [ Amitiza] 24 Mcg ( Home Med) 24 mcg PO BID [facility] Last Admin: 07/22/18 09:35 Dose: Not Given Ondansetron HCl (Zofran Inj) 4 mg IVP Q6H PRN PRN Reason: Nausea/Vomiting Oxycodone/Acetaminophen (Percocet 10/325 Mg Tab) 1 tab PO TID PRN PRN Reason: Pain, moderate (4-7) Last Admin: 07/21/18 08:03 Dose: 1 tab Warfarin Sodium (Coumadin) 5 mg PO DAILY [facility]; Protocol Last Admin: 07/22/18 09:34 Dose: 5 mg Zolpidem Tartrate (Ambien) 5 mg PO HS [facility]; Protocol Last Admin: 07/21/18 21:51 Dose: 5 mg - Labs Labs: 07/22/18 06:10 07/22/18 06:10 PT 18.6 SECONDS (9.4-12.5) H 07/22/18 06:10 INR 1.60 07/22/18 06:10 APTT 36.4 Seconds (25.1-36.5) 07/20/18 08:35 - Additional Findings Additional findings: - Constitutional Appears: Well, Non-toxic, No Acute Distress - Head Exam Head Exam: NORMAL INSPECTION - Eye Exam Eye Exam: Normal appearance - ENT Exam ENT Exam: Mucous Membranes Moist - Neck Exam Neck exam: Positive for: Normal Inspection - Respiratory Exam Respiratory Exam: Rales, Wheezes (diffuse), NORMAL BREATHING PATTERN. absent: Respiratory Distress - Cardiovascular Exam Cardiovascular Exam: Irregular Rhythm, +S1, +S2 Additional comments: mechanical valve auscultated - GI/Abdominal Exam GI & Abdominal Exam: Soft. absent: Distended, Tenderness - Extremities Exam Extremities exam: Positive for: normal inspection. Negative for: full ROM (limited but capable of moving left sided extremities, full ROM right side), pedal edema - Neurological Exam Neurological exam: Alert Additional comments: oriented x2 (person and place) - Psychiatric Exam Psychiatric exam: Normal Mood - Skin Skin Exam: Normal Color Assessment and Plan - Assessment and Plan (Free Text) Assessment: 78-year-old female with a PMH of breast CA s/p right breast mastectomy with compression fractures, anemia, A. fib and with a mechanical mitral valve (on Coumadin), AICD, CAD, CVA with residual left-sided weakness, DM 2, CKD stage III, angiodysplasia with GI bleed, COPD who presented to the ED for shortness of breath, productive cough and weakness. Oncology service consulted for history of breast CA. Given her Afib and mechanical valve, the patient 's goal INR is optimally 3, however, given her hx of supratherapeutic INR and age, INR of at least 2.5 should be sufficient. Labs, VS and other notes in chart were reviewed. Patient is started on Lovenox with increased Coumadin to bridge her back to a therapeutic INR. Plan: Cont Lovenox as per Cardio recs Cont Coumadin w/ goal INR at least 2.5, optimal target 3 daily INR check Labs order for anemia will be reviewed PT evaluation appreciated No further recs regarding her breast CA at this time Management per primary team Further recs per Dr. Newman Case was reviewed and discussed with attending, Dr. Paty Matias PGY2
[2018-07-22] MEDS ORDERED: Enoxaparin 60 mg Syringe SC SCH (10:00)
[2018-07-22 11:42] LABS: TRANSFERRIN 162.99 mg/dL (206-381)
--- NOTE | 2018-07-22 12:01 | PQF ---
PROVIDER RESPONSE TEXT: Acute on Ch CHF secondary to systolic dyx function. REVIEWER QUERY TEXT: CHF Acuity and Type Congestive Heart Failure is documented in the Medical Record. Please document the type and acuity (in cludes probable or suspected) Such as: Type: -- Systolic -- Diastolic -- Combined -- Other, please specify Acuity: -- Acute -- Chronic -- Acute on chronic -- Other, please specify Also please document the underlying cause of the CHF (includes probable or suspected) The patient's Clinical Indicators include: 07/21 Card consult notes, " acute exacerbation of CHF". Please indicate Type CHF present on admission Query created by: Merle Anton on 07/22/2018 11:17 AM Electronically signed by: Cyril Naranjo 07/22/2018 11:57 AM
[2018-07-22] MEDS: Azithromycin 500MG/NS 250ml 500 MG/250 ML BAG IVPB SCH (14:05)
--- NOTE | 2018-07-22 14:13 | CP.PCM.DIS ---
Provider - Provider Date of Admission: 07/20/18 10:24 Attending physician: Joaquín Lincoln MD Time Spent in preparation of Discharge (in minutes): 45 Hospital Course - Lab Results Lab Results: Micro Results 07/20/18 08:15 Blood-Venous Blood Culture - Preliminary NO GROWTH AFTER 48 HOURS 07/20/18 08:35 Blood-Venous Blood Culture - Preliminary NO GROWTH AFTER 48 HOURS Most Recent Lab Values WBC 3.8 10^3/ul (4.5-11.0) L 07/22/18 06:10 RBC 2.75 10^6/uL (3.5-6.1) L 07/22/18 06:10 Hgb 8.8 g/dL (12.0-16.0) L 07/22/18 06:10 Hct 27.3 % (36.0-48.0) L 07/22/18 06:10 MCV 99.3 fl (80.0-105.0) 07/22/18 06:10 MCH 32.0 pg (25.0-35.0) 07/22/18 06:10 MCHC 32.2 g/dl (31.0-37.0) 07/22/18 06:10 RDW 15.0 % (11.5-14.5) H 07/22/18 06:10 Plt Count 121 10^3/uL (120.0-450.0) 07/22/18 06:10 MPV 10.6 fl (7.0-11.0) 07/22/18 06:10 Gran % 94.5 % (50.0-68.0) H 07/22/18 06:10 Lymph % (Auto) 3.7 % (22.0-35.0) L 07/22/18 06:10 [place] % (Auto) 1.8 % (1.0-6.0) 07/22/18 06:10 Eos % (Auto) 0.0 % (1.5-5.0) L 07/22/18 06:10 Baso % (Auto) 0.0 % (0.0-3.0) 07/22/18 06:10 Gran # 3.60 (1.4-6.5) 07/22/18 06:10 Lymph # (Auto) 0.1 (1.2-3.4) L 07/22/18 06:10 [place] # (Auto) 0.1 (0.1-0.6) 07/22/18 06:10 Eos # (Auto) 0.0 (0.0-0.7) 07/22/18 06:10 Baso # (Auto) 0.00 K/mm3 (0.0-2.0) 07/22/18 06:10 Neutrophils % (Manual) 97 % (50.0-70.0) H 07/22/18 06:10 Lymphocytes % (Manual) 1 % (22.0-35.0) L 07/22/18 06:10 Monocytes % (Manual) 2 % (1.0-6.0) 07/22/18 06:10 Platelet Evaluation Normal (NORMAL) 07/22/18 06:10 Retic Count 1.71 % (0.5-1.5) H 07/22/18 06:10 PT 18.6 SECONDS (9.4-12.5) H 07/22/18 06:10 INR 1.60 07/22/18 06:10 APTT 26.8 Seconds (25.1-36.5) 07/22/18 09:45 pO2 49 mm/Hg (30-55) 07/20/18 08:35 VBG pH 7.32 (7.32-7.43) 07/20/18 08:35 VBG pCO2 43.0 (40-60) 07/20/18 08:35 VBG HCO3 22.2 mmol/l (21-28) 07/20/18 08:35 VBG Total CO2 23.5 mmol.L (22-28) 07/20/18 08:35 VBG O2 Sat (Calc) 86.3 % (40-65) H 07/20/18 08:35 VBG Base Excess -3.9 mmol/L (0.0-2.0) L 07/20/18 08:35 VBG Potassium 3.9 mmol/L (3.6-5.2) 07/20/18 08:35 Sodium 140.0 mmol/L (132-148) 07/20/18 08:35 Chloride 111.0 mmol/L (98-107) H 07/20/18 08:35 Glucose 91 mg/dl (65-105) 07/20/18 08:35 Lactate 1.1 mmol/L (0.7-2.1) 07/20/18 08:35 FiO2 21.0 % 07/20/18 08:35 Sodium 137 mmol/L (132-148) 07/22/18 06:10 Potassium 5.1 mmol/L (3.6-5.0) H 07/22/18 06:10 Chloride 103 mmol/L (98-107) 07/22/18 06:10 Carbon Dioxide 23 mmol/L (21-33) 07/22/18 06:10 Anion Gap 15 (10-20) 07/22/18 06:10 BUN 40 mg/dL (7-21) H 07/22/18 06:10 Creatinine 2.0 mg/dl (0.7-1.2) H 07/22/18 06:10 Est GFR ( Amer) 29 07/22/18 06:10 Est GFR (Non-Af Amer) 24 07/22/18 06:10 POC Glucose (mg/dL) 120 mg/dL (65-110) H 07/22/18 11:29 Random Glucose 125 mg/dL (70-110) H 07/22/18 06:10 Hemoglobin A1c 5.1 % (4.2-6.5) 07/22/18 06:10 Calcium 8.8 mg/dL (8.4-10.5) 07/22/18 06:10 Phosphorus 4.2 mg/dL (2.5-4.5) 07/22/18 06:10 Magnesium 1.9 mg/dL (1.7-2.2) 07/22/18 06:10 Iron 77 ug/dL (45-180) 07/22/18 06:10 TIBC 207 ug/dL (265-497) L 07/22/18 06:10 % Saturation 37 % (20-55) 07/22/18 06:10 Transferrin 162.99 mg/dL (206-381) L 07/22/18 06:10 Ferritin 2080.0 ng/mL 07/22/18 06:10 Total Bilirubin 0.6 mg/dL (0.2-1.3) 07/22/18 06:10 AST 26 U/L (14-36) 07/22/18 06:10 ALT 22 U/L (7-56) 10/09/18 06:10 Alkaline Phosphatase 114 U/L (38-126) 07/22/18 06:10 Troponin I < 0.01 ng/mL D 07/20/18 08:35 NT-Pro-B Natriuret Pep 9030 pg/mL (0-450) H 07/20/18 08:35 Total Protein 6.5 g/dL (5.8-8.3) 07/22/18 06:10 Albumin 3.7 g/dL (3.0-4.8) 07/22/18 06:10 Globulin 2.8 gm/dL 07/22/18 06:10 Albumin/Globulin Ratio 1.3 (1.1-1.8) 07/22/18 06:10 Triglycerides 128 mg/dL (35-160) 07/22/18 06:10 Cholesterol 198 mg/dL (130-200) 07/22/18 06:10 LDL Cholesterol Direct 100 mg/dL (0-129) 07/22/18 06:10 HDL Cholesterol 55 mg/dL (29-60) 07/22/18 06:10 Vitamin B12 211 pg/mL (239-931) L 07/22/18 06:10 TSH 3rd Generation 33.30 mIU/mL (0.46-4.68) H 07/22/18 06:10 Venous Blood Potassium 3.9 mmol/L (3.6-5.2) 07/20/18 08:35 Digoxin < 0.4 ng/mL (0.8-2.0) L 07/20/18 10:00 Influenza Typ A,B (EIA) Negative for flu a/b (NEGATIVE) 07/22/18 06:15 - Hospital Course Hospital Course: 78 yo female with extensive past medical history including CAD, A.fib (on coumadin), mechanical mitral valve, AICD/Pacer, HTN, dyslipidemia, CVA, DMII, compression fractures, CKD IIIA, GI bleed from angiodysplasia, COPD who came to ED for shortness of breath and productive cough for 2 days. Patient was be placed on Zithromax, Duonebs, Robitussin, Solumedrol as well as Brovana and Pulmicort for COPD exacerbation. CXR did not show evidence of pneumonia but showed mild to moderate cardiomegaly with mild vascular and interstitial congestion. Patient has extensive cardiac history, cardiology consulted, rec ommended warfarin 5mg daily, patients INR was subtheraputic. She was started on heparin until warfarin becomes therapeutic. TSH was elevated most likely due to nonadherence of medications will continue Synthroid. Continues home medications. PT recommended TCU. Patient will be discharged to TCU. Discharge Exam - Additional Findings Additional findings: - Constitutional Appears: No Acute Distress - Head Exam Head Exam: ATRAUMATIC, NORMAL INSPECTION, NORMOCEPHALIC - Eye Exam Eye Exam: Normal appearance, PERRL - ENT Exam ENT Exam: Mucous Membranes Moist - Neck Exam Neck exam: Positive for: Full Rom, Normal Inspection. Negative for: Meningismus, Tenderness Additional comments: bilateral neck scars - Respiratory Exam Respiratory Exam: Rhonchi, Wheezes (bilaterally, improved), NORMAL BREATHING PATTERN. absent: Rales, Respiratory Distress, Stridor - Cardiovascular Exam Cardiovascular Exam: REGULAR RHYTHM, +S1, +S2. absent: Gallop, Rubs, Systolic Murmur - GI/Abdominal Exam GI & Abdominal Exam: Normal Bowel Sounds, Soft. absent: Guarding, Mass, Rebound, Rigid, Tenderness - Extremities Exam Extremities exam: Positive for: normal inspection. Negative for: calf tenderness, pedal edema - Neurological Exam Neurological exam: Alert, CN II-XII Intact, Oriented x3 - Psychiatric Exam Psychiatric exam: Normal Affect, Normal Mood - Skin Skin Exam: Dry, Intact, Normal Color, Warm Discharge Plan - Follow Up Plan Condition: IMPROVED Disposition: TRANSF TO SNF Instructions: Atrial Fibrillation (DC), COPD Including Emphysema (DC), Heart Failure, Adult (DC) Additional Instructions: Patient discharged to TCU for continued antibiotic therapy, heparin infusion management, and physical therapy, continue medications as prescribed, follow-up with PCP within1 week of discharge. Return to ED if experiencing worsening of symptoms.
--- NOTE | 2018-07-22 16:30 | PN ---
DATE: 07/22/2018 REASON FOR THE CONSULTATION: Followup cardiac evaluation, history of coronary artery disease, rule out CHF, COPD exacerbation. SUBJECTIVE: The patient denies any chest pain, shortness of breath or any palpitation. OBJECTIVE: GENERAL: Not in any apparent distress. VITAL SIGNS: Temperature afebrile, heart rate 80, blood pressure 106/85. HEENT: PERRLA. Extraocular muscles intact. NECK: Supple. No carotid bruit. No thyromegaly. CHEST: Clear to auscultation. HEART: S1 and S2 regular. ABDOMEN: Soft. EXTREMITIES: Clubbing and cyanosis negative. LABORATORY DATA: Blood workup as follows; WBC 3.8, hemoglobin 8.8, hematocrit 27.3, platelet count 121. Chemistry shows sodium 137, potassium 5.1, chloride 103, carbon dioxide 23, anion gap of 15, BUN 40, creatinine 2. INR is 1.6. IMPRESSION: Subtherapeutic INR, acute exacerbation of chronic obstructive pulmonary disease, history of congestive heart failure, acute on chronic secondary to systolic dysfunction, ejection fraction severely decreased, status post automatic implantable cardioverter-defibrillator, history of coronary artery disease, history of coronary artery bypass graft in the past. Recent defibrillator interrogation done reaching end of the life. Treat aggressively for chronic obstructive pulmonary disease. Continue Lovenox as a bridge 1 mg/kg every 24 until the patient gets subtherapeutic because the patient has mechanical valve as well as atrial fibrillation. Goal is to keep INR between 2.5. Once the INR is reached 2.5, we will discontinue Lovenox. Coumadin continued as 5 mg daily. Continue Duo nebulizer treatment. Continue IV Lasix. Continue isosorbide dinitrate. As mentioned, once the patient gets discharged, we will arrange for automatic implantable cardioverter-defibrillator generator change by office. We will follow with you. We will repeat PT/INR tomorrow Thank you, Dr. Lincoln for providing us opportunity in taking care of the patient, Franchesca Ohara. Cyril Naranjo MD [facility] # [id number]
[2018-07-23] MEDS ORDERED: Levothyroxine 100 MCG TAB PO SCH (06:00)
== END 2018-07-22 16:11 | DRG 190 ==
LOC: ED 08:01 → ERH 10:24 → 3RSO 14:27
PROVIDERS: ADMIT Internal Medicine Nephrology; ATTEND Internal Medicine Nephrology
DX: J44.1 Chronic obstructive pulmonary disease with (acute) exacerbation (principal); I50.23 Acute on chronic systolic (congestive) heart failure; I13.0 Hypertensive heart and chronic kidney disease with heart failure and stage 1 through stage 4 chronic kidney disease, or unspecified chronic kidney disease; I69.354 Hemiplegia and hemiparesis following cerebral infarction affecting left non-dominant side; N17.9 Acute kidney failure, unspecified; I50.9 Heart failure, unspecified; D50.9 Iron deficiency anemia, unspecified; N18.3 Chronic kidney disease, stage 3 (moderate); E11.22 Type 2 diabetes mellitus with diabetic chronic kidney disease; Z87.891 Personal history of nicotine dependence; F45.9 Somatoform disorder, unspecified; Z79.01 Long term (current) use of anticoagulants; Z79.84 Long term (current) use of oral hypoglycemic drugs; Z79.899 Other long term (current) drug therapy; Z95.2 Presence of prosthetic heart valve; I48.91 Unspecified atrial fibrillation; I25.10 Atherosclerotic heart disease of native coronary artery without angina pectoris; E78.5 Hyperlipidemia, unspecified; Z85.3 Personal history of malignant neoplasm of breast; Z90.10 Acquired absence of unspecified breast and nipple; Z92.3 Personal history of irradiation; I25.5 Ischemic cardiomyopathy; K55.20 Angiodysplasia of colon without hemorrhage; G62.9 Polyneuropathy, unspecified; G89.29 Other chronic pain; M54.9 Dorsalgia, unspecified; R79.1 Abnormal coagulation profile; I48.2 Chronic atrial fibrillation; Z95.1 Presence of aortocoronary bypass graft; E03.9 Hypothyroidism, unspecified; E11.42 Type 2 diabetes mellitus with diabetic polyneuropathy; I08.3 Combined rheumatic disorders of mitral, aortic and tricuspid valves; I27.20 Pulmonary hypertension, unspecified; I45.9 Conduction disorder, unspecified; Z90.11 Acquired absence of right breast and nipple; Z91.14 Patient's other noncompliance with medication regimen; Z95.5 Presence of coronary angioplasty implant and graft; Z95.810 Presence of automatic (implantable) cardiac defibrillator; Z98.42 Cataract extraction status, left eye; Z98.41 Cataract extraction status, right eye; M19.90 Unspecified osteoarthritis, unspecified site; Z87.19 Personal history of other diseases of the digestive system; Z88.2 Allergy status to sulfonamides

== ENCOUNTER 2018-07-22 16:16 | Inpatient (IN) | payer MEDICARE, MEDICAID ==
[2018-07-22] MEDS ORDERED: Oxycodone/Acetaminophen 10/325 mg Tab PO PRN (16:21)
[2018-07-22 16:22] VITALS: BMI 23.3
[2018-07-22] MEDS: Morphine 15 mg Immediate Release Tab PO SCH (16:30)
[2018-07-22] MEDS ORDERED: Benzocaine/Menthol (Cepacol) Lozenge MT PRN (16:36)
[2018-07-22] MEDS ORDERED: Heparin25000 units/250ml 1/2NS 25,000 UNITS/250 ML BAG IV PRN (16:50)
[2018-07-22] MEDS: MethylPREDNISolone 40 mg Vial IVP SCH (18:14)
[2018-07-22] MEDS: Albuterol-Ipratrop 3 mg / 0.5 (3 ml) UD IH SCH (21:32)
[2018-07-22] MEDS: Arformoterol 15 mcg/2 ml Inh Sol IH SCH (21:32)
[2018-07-22] MEDS: Insulin Reg-LOW-Coverage SC SCH (22:07)
[2018-07-22] MEDS ORDERED: Pneumococcal 23-Valent Vaccine IM ONE (23:06)
[2018-07-22] MEDS ORDERED: Influenza Vaccine 60 mcg/0.5 mL SYR (4YR UP) IM ONE (23:06)
[2018-07-23] MEDS: Albuterol-Ipratrop 3 mg / 0.5 (3 ml) UD IH SCH ×4 (02:10→21:00)
[2018-07-23] MEDS: Levothyroxine 100 MCG TAB PO SCH (05:28)
[2018-07-23] MEDS: MethylPREDNISolone 40 mg Vial IVP SCH ×2 (05:29→17:47)
[2018-07-23] MEDS ORDERED: Azithromycin 500MG/NS 250ml 500 MG/250 ML BAG IVPB SCH (06:00)
[2018-07-23] MEDS: Albuterol-Ipratrop 3 mg / 0.5 (3 ml) UD IH PRN (06:05)
[2018-07-23] MEDS: Insulin Reg-LOW-Coverage SC SCH ×4 (06:34→21:54)
[2018-07-23] MEDS: Arformoterol 15 mcg/2 ml Inh Sol IH SCH ×2 (07:13→21:00)
[2018-07-23 07:26] LABS: GRAN # 6.94 (1.4-6.5); GRAN % 95.6 % (50.0-68.0); HEMOGLOBIN 10.4 g/dL (12.0-16.0); LYMPH # 0.2 (1.2-3.4); LYMPH % 2.5 % (22.0-35.0); MEAN CORPUSCULAR HEMOGLOBIN 31.9 pg (25.0-35.0); MEAN CORPUSCULAR HGB CONC 31.9 g/dl (31.0-37.0); MEAN PLATELET VOLUME 10.8 fl (7.0-11.0); MONO # 0.1 (0.1-0.6); MONO % 1.9 % (1.0-6.0); RBC 3.26 10^6/uL (3.5-6.1); RED CELL DISTRIBUTION WIDTH 15.3 % (11.5-14.5); WHITE BLOOD COUNT 7.3 10^3/ul (4.5-11.0)
[2018-07-23 07:28] LABS: INR 1.88; PARTIAL THROMBOPLASTIN TIME 84.1 Seconds (25.1-36.5); PROTHROMBIN TIME 21.9 SECONDS (9.4-12.5)
--- NOTE | 2018-07-23 07:41 | CP.PCM.HP ---
<Phuong Dillon - Last Filed: 07/23/18 10:07> History of Present Illness - History of Present Illness History of Present Illness: 78 yo female with extensive past medical history including CAD, A.fib (on coumadin), mechanical mitral valve, AICD/Pacer, HTN, dyslipidemia, CVA, DMII, compression fractures, CKD IIIA, GI bleed from angiodysplasia, COPD who initially came to ED for shortness of breath and productive cough for 2 days. She reports her health aid was sick at home and she has been coughing yellow tinged mucus. Patient continues to report SOB. Patient denies having fevers, chest pain, vomiting/diarrhea, numbness/tingling, abdominal pain, dysuria or hematuria. Medications were confirmed with [facility]'s pharmacy while patient was in the hospital. Patient was transferred to TCU for further PT. PMH: CAD s/p CABG, A.fib (on coumadin), AICD, angiodysplasia of colon, GI bleed, hx of multiple blood transfusions, HTN, HLD, CVA, DM-II, peripheral neuropathy, COPD, mechanical mitral valve, compression fracture on chronic pain medicine, CKD IIIA, Ischemic cardiomyopathy s/p pacer/AICD, hypothyroidism , breast ca PSH: CABG, AICD/pacer, mitral Mechanical valve placement, femoral stents? as per patient, bilateral neck surgery- but not sure what kind Allergies: Sulfa Social history: Smokes 1 cigg per day x >50yrs, Denies EtOH or drug use. Lives alone and has a health aid. Walks with cane Family history: Dad- from heart problems, Mom- from heart problems Present on Admission - Present on Admission Any Indicators Present on Admission: No Review of Systems - Review of Systems All systems: reviewed and no additional remarkable complaints except Past Patient History - Infectious Disease Hx of Infectious Diseases: None - Tetanus Immunizations Tetanus Immunization: Unknown - Past Social History Smoking Status: Light Smoker < 10 Cigarettes Daily - CARDIAC Hx Cardiac Disorders: Yes (5 stents; CABG) Hx Congestive Heart Failure: Yes Hx Hypertension: Yes - PULMONARY Hx Chronic Obstructive Pulmonary Disease (COPD): Yes - NEUROLOGICAL HX Cerebrovascular Accident: Yes - HEENT Hx HEENT Problems: Yes Hx Cataracts: Yes (sx b/l) Other/Comment: eye glasses - RENAL Hx Renal Failure: Yes - ENDOCRINE/METABOLIC Hx Diabetes Mellitus Type 2: Yes Hx Hypothyroidism: Yes - HEMATOLOGICAL/ONCOLOGICAL Hx Blood Disorders: Yes Hx Anemia: Yes (iron deficiency-IRON INFUSIONS) - INTEGUMENTARY Hx Dermatological Problems: No - MUSCULOSKELETAL/RHEUMATOLOGICAL Hx Falls: Yes - GASTROINTESTINAL Hx Gastrointestinal Disorders: Yes (GI BLEED) - GENITOURINARY/GYNECOLOGICAL Hx Genitourinary Disorders: No Hx Reproductive Disorders: No - PSYCHIATRIC Hx Psychophysiologic Disorder: Yes (SMOKES 5 CIG A DAY. SMOKED FOR 50 YRS) Hx Anxiety: Yes Hx Depression: Yes - SURGICAL HISTORY Hx Cardiac Catheterization: Yes (5 stents) Hx Coronary Stent: Yes (5) Hx Open Heart Surgery: Yes - ANESTHESIA Hx Anesthesia Reactions: No Hx Malignant Hyperthermia: No Meds Allergies/Adverse Reactions: Allergies Allergy/AdvReac Type Severity Reaction Status Date / Time Sulfa (Sulfonamide Allergy Mild RASH Verified 07/22/18 22:49 Antibiotics) Physical Exam - Constitutional Appears: No Acute Distress - Head Exam Head Exam: ATRAUMATIC, NORMAL INSPECTION, NORMOCEPHALIC - Eye Exam Eye Exam: EOMI, Normal appearance - ENT Exam ENT Exam: Mucous Membranes Moist, Normal External Ear Exam. absent: Mucous Membranes Dry - Neck Exam Neck exam: Positive for: Full Rom. Negative for: Meningismus Additional comments: bilateral scars - Respiratory Exam Respiratory Exam: Wheezes, NORMAL BREATHING PATTERN. absent: Accessory Muscle Use, Chest Wall Tenderness, Decreased Breath Sounds, Rales, Rhonchi, Respiratory Distress Additional comments: on nasal cannula - Cardiovascular Exam Cardiovascular Exam: REGULAR RHYTHM, +S1, +S2. absent: Bradycardia, Tachycardia, Diastolic murmur, Systolic Murmur - GI/Abdominal Exam GI & Abdominal Exam: Normal Bowel Sounds, Soft. absent: Diminished Bowel Sounds, Distended, Firm, Guarding, Tenderness - Extremities Exam Extremities exam: Positive for: normal inspection. Negative for: calf tenderness, pedal edema, tenderness - Neurological Exam Neurological exam: Alert, CN II-XII Intact, Oriented x3 Additional comments: strength 5/5 in all extremities - Psychiatric Exam Psychiatric exam: Normal Affect, Normal Mood Additional comments: no agitation, anxiety, depression - Skin Skin Exam: Dry, Intact, Normal Color, Warm Results - Vital Signs Recent Vital Signs: Last Vital Signs Temp 97.5 F L 07/22/18 22:50 Pulse 80 07/22/18 22:50 Resp 18 07/22/18 22:50 BP 126/90 07/22/18 22:50 Pulse Ox 100 07/22/18 17:00 - Labs Result Diagrams: 07/23/18 07:00 07/23/18 07:00 Labs: Laboratory Results - last 24 hr 07/22/18 07/22/18 07/22/18 16:39 17:22 20:54 WBC RBC Hgb Hct MCV MCH MCHC RDW Plt Count MPV Gran % Lymph % (Auto) Rolette % (Auto) Eos % (Auto) Baso % (Auto) Gran # Lymph # (Auto) Rolette # (Auto) Eos # (Auto) Baso # (Auto) PT INR APTT 72.9 H POC Glucose (mg/dL) 118 H 117 H 07/22/18 07/23/18 07/23/18 23:30 00:52 05:28 WBC RBC Hgb Hct MCV MCH MCHC RDW Plt Count MPV Gran % Lymph % (Auto) Rolette % (Auto) Eos % (Auto) Baso % (Auto) Gran # Lymph # (Auto) Rolette # (Auto) Eos # (Auto) Baso # (Auto) PT INR APTT 87.4 H POC Glucose (mg/dL) 143 H 107 07/23/18 07/23/18 07:00 07:00 WBC 7.3 D RBC 3.26 L Hgb 10.4 L Hct 32.6 L MCV 100.0 MCH 31.9 MCHC 31.9 RDW 15.3 H Plt Count 162 MPV 10.8 Gran % 95.6 H Lymph % (Auto) 2.5 L Rolette % (Auto) 1.9 Eos % (Auto) 0.0 L Baso % (Auto) 0.0 Gran # 6.94 H Lymph # (Auto) 0.2 L Rolette # (Auto) 0.1 Eos # (Auto) 0.0 Baso # (Auto) 0.00 PT 21.9 H INR 1.88 APTT 84.1 H POC Glucose (mg/dL) Assessment & Plan - Assessment and Plan (Free Text) Assessment: COPD exacerbation GEORGE on CKD IIIA - possibly pre-renal A.fib (on Coumadin) sub therapeutic INR CAD s/p CABG Mechanical mitral valve Ischemic cardiomyopathy s/p pacer/AICD HTN HLD DM II Compression fractures on chronic pain medication Iron deficiency Anemia- stable CVA Peripheral neuropathy Hypothyroidism Plan: Labs and imaging reviewed. Patient is on Zithromax will change to PO for 3 more days. cont Duonebs, Robitussin, Brovana and Pulmicort for COPD exacerbation. Patient continues to have wheezing will continue Solumedrol 40 mg q12 and get pulmonary consult. CXR did not show evidence of pneumonia but showed mild to moderate cardiomegaly with mild vascular and interstitial congestion. Patient has extensive cardiac history, cardiology consulted, recommended warfarin 5mg daily and heparin until therapeutic. Cardiology also recommended evaluation of pacemaker for end of life once patient is discharged. TSH elevated most likely due to nonadherence of medications will continue current dose of Synthroid. Continue medications of Lipitor, Coumadin, Imdur. Metformin on hold and will place patient on insulin sliding scale. Will continue patient home pain medications, Morphine instant release and percocet. Patient is on Pepcid and Zofran for nausea. Continue PT while patient in TCU. . Case seen, discussed and reviewed with Dr. Lincoln <Joaquín Lincoln S - Last Filed: 07/29/18 19:57> Results - Vital Signs Recent Vital Signs: Last Vital Signs Temp 97.5 F L 07/29/18 16:00 Pulse 83 07/29/18 16:00 Resp 16 07/29/18 16:00 BP 130/81 07/29/18 16:00 Pulse Ox 97 07/29/18 16:00 - Labs Result Diagrams: 07/29/18 06:45 07/29/18 06:45 Labs: Laboratory Results - last 24 hr 07/28/18 07/29/18 07/29/18 21:19 05:17 06:45 WBC RBC Hgb Hct MCV MCH MCHC RDW Plt Count MPV Gran % Lymph % (Auto) Rolette % (Auto) Eos % (Auto) Baso % (Auto) Gran # Lymph # (Auto) Rolette # (Auto) Eos # (Auto) Baso # (Auto) Neutrophils % (Manual) Band Neutrophils % Lymphocytes % (Manual) Monocytes % (Manual) Platelet Evaluation PT 27.4 H INR 2.34 Sodium Potassium Chloride Carbon Dioxide Anion Gap BUN Creatinine Est GFR ( Amer) Est GFR (Non-Af Amer) POC Glucose (mg/dL) 99 101 Random Glucose Calcium Phosphorus Magnesium 1007/29/18 07/29/18 06:45 06:45 11:03 WBC 6.1 D RBC 3.35 L Hgb 11.0 L Hct 33.4 L MCV 99.7 MCH 32.8 MCHC 32.9 RDW 15.5 H Plt Count 105 L MPV 10.2 Gran % 90.4 H Lymph % (Auto) 5.2 L Rolette % (Auto) 4.4 Eos % (Auto) 0.0 L Baso % (Auto) 0.0 Gran # 5.54 Lymph # (Auto) 0.3 L Rolette # (Auto) 0.3 Eos # (Auto) 0.0 Baso # (Auto) 0.00 Neutrophils % (Manual) 91 H Band Neutrophils % 1 Lymphocytes % (Manual) 5 L Monocytes % (Manual) 3 Platelet Evaluation Normal PT INR Sodium 135 Potassium 4.4 Chloride 95 L Carbon Dioxide 32 Anion Gap 12 BUN 55 H Creatinine 1.5 H Est GFR ( Amer) 41 Est GFR (Non-Af Amer) 34 POC Glucose (mg/dL) 83 Random Glucose 99 Calcium 9.3 Phosphorus 3.6 Magnesium 2.3 H 07/29/18 17:44 WBC RBC Hgb Hct MCV MCH MCHC RDW Plt Count MPV Gran % Lymph % (Auto) Rolette % (Auto) Eos % (Auto) Baso % (Auto) Gran # Lymph # (Auto) Rolette # (Auto) Eos # (Auto) Baso # (Auto) Neutrophils % (Manual) Band Neutrophils % Lymphocytes % (Manual) Monocytes % (Manual) Platelet Evaluation PT INR Sodium Potassium Chloride Carbon Dioxide Anion Gap BUN Creatinine Est GFR ( Amer) Est GFR (Non-Af Amer) POC Glucose (mg/dL) 125 H Random Glucose Calcium Phosphorus Magnesium Assessment & Plan - Assessment and Plan (Free Text) Plan: Pt seen and examined. This is a late entry. I have reviewed the note of the internist medical doctor md and agree with it. I have discussed the assessment and plan with the resident. I have reviewed the patient's labs and medications.Pt with COPD and is on Solumedrol and Duoneb. Brovana will be continued. Pt is nonadherent to her Synthroid and Coumadin. Pain is controlled with Morphine and Percocet. Cardiology consulted.
[2018-07-23 07:47] LABS: ALB/GLOB RATIO 1.4 (1.1-1.8); ALBUMIN 4.4 g/dL (3.0-4.8); CALCIUM 9.2 mg/dL (8.4-10.5)
[2018-07-23] MEDS ORDERED: Heparin25000 units/250ml 1/2NS 25,000 UNITS/250 ML BAG IV PRN (08:18)
[2018-07-23] MEDS: Morphine 15 mg Immediate Release Tab PO SCH ×2 (10:03→21:58)
[2018-07-23] MEDS: Budesonide 0.5 mg/2 ml Inhal Susp UD IH SCH (21:00)
[2018-07-23] MEDS: guaiFENesin 100 mg/5 ml Syrup UD PO PRN (21:53)
--- NOTE | 2018-07-23 22:29 | CON ---
DATE: 07/23/2018 PULMONARY CONSULTATION REASON FOR PULMONARY CONSULTATION: Chronic obstructive pulmonary disease. REFERRING PHYSICIAN: Joaquín Lincoln MD HISTORY OF PRESENT ILLNESS: The patient is a chronically ill 78-year-old female, with past medical history significant for chronic obstructive pulmonary disease, positive extensive smoking history - still smokes, extensive coronary artery disease, ischemic cardiomyopathy, atrial fibrillation, mechanical mitral valve repair, status post AICD placement, who presented to [facility] - originally on 07/20/2018 - with a 2-day history of increasing pulmonary symptoms. In the Emergency Room, the patient was noted to have an acute bronchitis. She was thus admitted for additional evaluation. Apparently, the patient did well clinically and was transferred to the transitional unit. I am thus asked to evaluate on this case for additional management. I did speak with the patient at length. The patient is not short of breath at rest. She does state to chronic shortness of breath with exertion. The patient does state that her cough and sputum have decreased since admission. There is no history of chest pain, coughing up of blood, or chest pain - made worse with deep respirations. There is no history of temperatures, chills, or infectious exposure. There is no history of night sweats, weight loss, or appetite change prior to the above events. No history of calf pains. No history of syncope or diaphoresis. No history of recent travel or trauma. REVIEW OF SYSTEMS: No history of nausea, vomiting, or diarrhea. No acute urinary symptoms. No new musculoskeletal complaints. Rest of the review of systems is negative. ALLERGIES: SULFONAMIDE ANTIBIOTICS. SOCIAL HISTORY: Positive for extensive tobacco usage - still smokes, no alcohol. FAMILY HISTORY: No inheritable diseases. HOME MEDICATIONS: Include Ambien, Coumadin, Glucophage, Synthroid, Imdur, Advair, Lipitor, albuterol HFA, and Percocet. PHYSICAL EXAMINATION: GENERAL: The patient appears comfortable this morning. She is not short of breath at rest. VITAL SIGNS: Temperature is 97.5, pulse 80, respirations 18, blood pressure 126/90. Oxygen saturation on nasal cannula is 100%. HEENT: Normocephalic, atraumatic. NECK: No JVD. CARDIOVASCULAR: Systolic ejection murmur at the lower left sternal border. Questionable S3 gallop. LUNGS: Decreased breath sounds at the bases with minimal crackles. Mild bilateral rhonchi and wheezing are also appreciated. EXTREMITIES: No clubbing, cyanosis, or edema. Calves are nontender to palpation. GI: Abdomen is soft, nontender, and nondistended. Bowel sounds are positive. SKIN: No acute rash. NEUROLOGIC: Limited at the present time. PERTINENT LABORATORY DATA: Chest x-ray was done on 07/20/2018, and reviewed. There is mild pulmonary vascular congestion noted. CBC: White count 7.3K, hemoglobin 10.4, hematocrit 32.6, and platelets of 162,000. Complete metabolic profile: BUN 48, creatinine 2.1. Glucose 138. Magnesium 2.3. Rest of the metabolic profile is within normal limits. Initial B-type natriuretic peptide 9030. IMPRESSION: 1. Acute bronchitis. 2. Chronic obstructive pulmonary disease. 3. Mild congestive heart failure. 4. Cardiomyopathy. 5. Atrial fibrillation. 6. Mild bronchospasm. PLAN: The patient presented to [facility] - originally on 07/20/2018 - with a 2-day history of worsening pulmonary symptoms. In the Emergency Room, the patient was noted to have an acute bronchitis. She was thus admitted for additional evaluation. Again, I did discuss the case with the patient at length. The patient does state to feeling better overall. She has less cough and sputum. She has chronic dyspnea on exertion. She offers no other pulmonary symptoms. I did review the chest x-ray as above. The chest x-ray does reveal mild pulmonary vascular congestion. I have also reviewed the laboratory data. There is a significant rise in the B-type natriuretic peptide. I did review the input by Cardiology (Dr. Naranjo). Depending on the clinical status and laboratory evaluation, a reintroduction of diuretics may be useful. On physical exam, the patient is in [id number] bronchospasm. I will continue with the current nebulizer treatments and low-dose intravenous steroids for now. I will also add inhaled Pulmicort this morning. Repeat a.m. labs are ordered. The clinical status of the patient certainly appears improved - compared to the initial presentation. However, the future status/prognosis for this patient does remain guarded. I will discuss the above with Dr. Lincoln in the next few moments. Thank you very much for this pulmonary consultation. Karl Gomez MD [facility] # [id number] MARL[place]
--- NOTE | 2018-07-24 02:51 | CON ---
DATE: 07/23/2018 SERVICE: CARDIOLOGY REASON FOR CONSULTATION: Continuity of care in Transitional Care Unit, history of coronary artery disease, history of CABG, history of atrial fibrillation on Coumadin, subtherapeutic INR, status post AICD. BRIEF CLINICAL HISTORY: A 78-year-old female with past medical history significant for coronary artery disease, status post CABG, status post AICD, history of angiodysplasia, multiple GI bleed in the past, history of chronic atrial fibrillation, history of cardiomyopathy ischemic, status post AICD, history of mechanical mitral valve replacement, history of multiple transfusions, history of angiodysplasia of colon, history of CVA, history of hypertension, hyperlipidemia, history of TIA as well, history of diabetes, hypertension, peripheral neuropathy, history of mastectomy for breast CA. PAST MEDICAL HISTORY: As above mentioned in detail. PREVIOUS CARDIAC WORKUP: As follows, patient has atrial fibrillation, chronic AFib, multiple failed VIMAL cardioversion. Most recently echo 03/24/2015, ejection fraction 25% to 30%, trace aortic regurgitation, [id number] aortic stenosis, trace mitral regurgitation, status post MVR mechanical, moderate tricuspid regurgitation, RV systolic pressure of 40, history of pacemaker/AICD lead in the RV, RA. Last stress test on 04/25/2015 shows multiple defect, no reversible ischemia, ejection fraction of 25%. EKG shows V-paced rhythm. Repeat stress test on 03/13/2017, shows abnormal myocardial perfusion study, fixed defect, no reversible ischemia, ejection fraction 20%, dated 03/13/2017. Most recent echo patient has on 01/31/2018 that showed ejection fraction of 45%, mild aortic regurgitation, moderate valvular aortic stenosis, mechanical mitral prosthesis functioning normal, trace mitral regurgitation, [id number] tricuspid regurgitation, RV systolic pressure of 42, mild pulmonary hypertension, ejection fraction 40% to 45%, dated 01/31/2018. SOCIAL HISTORY: Smoking. No history of alcohol abuse. CURRENT MEDICATIONS: Patient is taking levothyroxine, acetaminophen, Coumadin 1 mg alternate with 4 mg, metformin, Amitiza, isosorbide dinitrate. REVIEW OF SYSTEMS: As per HPI. PHYSICAL EXAMINATION: VITAL SIGNS: As follows, temperature afebrile, heart rate 80, blood pressure 124/84. HEENT: PERRLA. Extraocular muscles intact. NECK: Supple. No carotid bruit or thyromegaly. CHEST: Clear to auscultation. HEART: S1 and S2, regular. ABDOMEN: Soft. EXTREMITIES: Clubbing and cyanosis negative. LABORATORY DATA: Blood workup, WBC 7.3, hemoglobin 10, hematocrit 32.6, platelet count 164. Chemistry shows sodium 138, potassium 5, chloride 103, carbon dioxide 21, anion gap of 15, BUN 20, creatinine 2.1. IMPRESSION: A 78-year-old female with past medical history significant for chronic atrial fibrillation on anticoagulation, today her INR is 1.88, subtherapeutic INR, admitted with acute exacerbation of chronic obstructive pulmonary disease, history of multiple cerebrovascular accident, history of transient ischemic attack, history of mechanical mitral prosthesis in position, [id number] aortic stenosis as per echocardiogram, mild mitral regurgitation, [id number] tricuspid regurgitation, right ventricular systolic pressure 42, history of breast cancer. RECOMMENDATIONS: Pacemaker interrogation was done, found to be end of the life. Since the patient has a subtherapeutic INR and admitted with acute exacerbation of COPD, we will treat aggressively COPD in transitional care unit. Continue heparin until INR get 2.5 above. Once the INR get 2.5 above, we will discontinue heparin. After the patient completed her rehab, we will send the patient to as outpatient for replacement of [facility] defibrillator service. We will follow with you. Interim, continue Coumadin to keep the INR 2.5 to 3. Continue heparin until INR get therapeutic. Continue isosorbide dinitrate. Continue atorvastatin. Continue gentle diuretics, starting from 40 mg from tomorrow. Monitor INR. Monitor CBC. We will follow with you. Patient's admitting creatinine is 1.5, now is 2.1. We will hold Lasix for now but once patient get euvolemic, we will start Lasix again. This bump in creatinine is secondary to diuretics plus as well as steroid, patient is getting for COPD exacerbation. We will start Lasix 40 from Saturday. Thank you, Dr. Lincoln for providing us opportunity in taking care of patient, Franchesca Ohara. Cyril Naranjo MD [facility] # [id number]
[2018-07-24] MEDS: Albuterol-Ipratrop 3 mg / 0.5 (3 ml) UD IH SCH ×4 (03:12→20:22)
[2018-07-24] MEDS: Levothyroxine 100 MCG TAB PO SCH (05:14)
[2018-07-24] MEDS: MethylPREDNISolone 40 mg Vial IVP SCH ×2 (05:15→17:40)
[2018-07-24] MEDS: guaiFENesin 100 mg/5 ml Syrup UD PO PRN ×2 (05:15→21:34)
[2018-07-24] MEDS: Albuterol-Ipratrop 3 mg / 0.5 (3 ml) UD IH PRN (05:15)
[2018-07-24] MEDS: Insulin Reg-LOW-Coverage SC SCH ×4 (06:47→22:18)
[2018-07-24] MEDS: Arformoterol 15 mcg/2 ml Inh Sol IH SCH ×2 (07:30→20:21)
[2018-07-24] MEDS: Budesonide 0.5 mg/2 ml Inhal Susp UD IH SCH ×2 (07:31→20:22)
[2018-07-24 08:11] LABS: HEMOGLOBIN 10.9 g/dL (12.0-16.0); MEAN CELL VOLUME 99.4 fl (80.0-105.0); MEAN CORPUSCULAR HEMOGLOBIN 32.7 pg (25.0-35.0); MEAN CORPUSCULAR HGB CONC 32.9 g/dl (31.0-37.0); MEAN PLATELET VOLUME 10.6 fl (7.0-11.0); RBC 3.33 10^6/uL (3.5-6.1); RED CELL DISTRIBUTION WIDTH 15.1 % (11.5-14.5); WHITE BLOOD COUNT 8.2 10^3/ul (4.5-11.0)
[2018-07-24 08:26] LABS: ALB/GLOB RATIO 1.5 (1.1-1.8); ALBUMIN 4.7 g/dL (3.0-4.8); CALCIUM 9.6 mg/dL (8.4-10.5)
[2018-07-24 08:49] LABS: INR 2.09; PARTIAL THROMBOPLASTIN TIME 54.1 Seconds (25.1-36.5); PROTHROMBIN TIME 24.4 SECONDS (9.4-12.5)
[2018-07-24] MEDS: Morphine 15 mg Immediate Release Tab PO SCH ×2 (10:26→22:18)
--- NOTE | 2018-07-24 15:05 | PN ---
DATE: 07/24/2018 PULMONARY PROGRESS NOTE SUBJECTIVE: The patient was seen by Dr. Gomez yesterday for COPD. The patient is comfortable this morning. She 78 years old. She has no acute respiratory distress. She continues to smoke. She is in TCU. The patient has a history of cough, expectoration, but feels well at this time. OBJECTIVE: VITAL SIGNS: Remain stable. The patient is afebrile. Respiratory rate 16, blood pressure 130/80, oxygen saturation 100% on nasal cannula. HEENT: Normocephalic, atraumatic. NECK: Supple. No JVD. No bruit. No thyromegaly. CARDIOVASCULAR: Regular rhythm. S1, S2. Soft systolic ejection murmur. No gallop appreciated. LUNGS: Global decrease in breath sounds. Minimal rhonchi. Minimal wheezing. ABDOMEN: Soft. Bowel sounds normoactive without mass, guarding, rebound or organomegaly. EXTREMITIES: Reveal no clubbing, cyanosis or edema. There is no Homans' sign. SKIN: No rash or excoriation. NEUROLOGIC: No focal findings noted. LABORATORY DATA: Chest x-ray shows mild pulmonary vascular congestion. No change in other parameters. CLINICAL IMPRESSION: 1. Status post bronchitis. 2. Chronic obstructive pulmonary disease. 3. Pulmonary vascular congestion. 4. Cardiomyopathy. 5. Atrial fibrillation. PLAN: Agree with the use of inhaled bronchodilators and corticosteroids. Continue diuretic therapy. Follow chest x-ray to resolution of pulmonary vascular congestion. The patient will require vigorous outpatient treatment. We will decide on the need for further intervention as things continue. We would continue Brovana and budesonide in the hospital. The patient should have a lower dose of methylprednisolone as tolerated. An anticholinergic such as Spiriva should be added. In view of the patient's atrial fibrillation, this will need to be discussed with Cardiology first. We will follow closely with you and decide on the need for further intervention as the patient continues to hopefully improve. Thank you for the opportunity to continue to care for this patient. Dung Mejía MD
--- NOTE | 2018-07-24 19:39 | PN ---
DATE: 07/24/2018 REASON FOR CONSULTATION AND FOLLOWUP: Continuity of care in transitional care unit, history of coronary artery disease, history of CABG, history of atrial fibrillation, on Coumadin, subtherapeutic INR, status post AICD, history of mechanical mitral valve. SUBJECTIVE: The patient denies any chest pain, shortness of breath, or any palpitation. OBJECTIVE GENERAL: Not in apparent distress. VITAL SIGNS: Temperature afebrile, heart rate 94, and blood pressure 124/84. HEENT: PERRLA. Extraocular muscles intact. NECK: Supple. No carotid bruit or thyromegaly. CHEST: Clear to auscultation. HEART: S1 and S2, regular. ABDOMEN: Soft. EXTREMITIES: Clubbing and cyanosis negative. LABORATORY DATA: Blood workup as follows: WBC 8.8, hemoglobin 10.9, hematocrit 33.1, and platelet count 165. Chemistry showed sodium 136, potassium 5.3, chloride 102, carbon dioxide 24, anion gap of 17. BUN 52, creatinine 2. IMPRESSION: A 78-year-old female with past medical history significant for coronary artery disease, status post coronary artery bypass surgery; history of mechanical mitral valve replacement; history of gastrointestinal bleed; history of angiodysplasia of the colon; history of cerebrovascular accident; history of hypertension; hyperlipidemia; history of transient ischemic attack; status post automatic implantable cardioverter-defibrillator; who was admitted with subtherapeutic INR. Now, the patient is on heparin and Coumadin. Today, INR is 2.05. We will discontinue heparin. Continue Coumadin. Pacemaker was interrogated. Automatic implantable cardioverter-defibrillator, [facility] end of the life upon discharge. The patient was admitted this time with acute bronchitis symptom. Once the symptom subsided, the patient is able to be discharged and we will schedule outpatient defibrillator battery change by office. We will follow with you. Interim, continue gentle Lasix, continue atorvastatin, continue clonidine. Continue 5 mg of Coumadin. We will discontinue heparin at 6 p.m. PT/INR in the morning. We will also start since the heparin is going to be discontinued, but we will continue to monitor PT/INR. Thank you, Dr. Lincoln, for providing us the opportunity in taking care of the patient, Franchesca Ohara. Cyril Naranjo MD
[2018-07-25] MEDS: Levothyroxine 100 MCG TAB PO SCH (05:25)
[2018-07-25] MEDS: MethylPREDNISolone 40 mg Vial IVP SCH ×2 (05:25→17:32)
[2018-07-25] MEDS: guaiFENesin 100 mg/5 ml Syrup UD PO PRN (05:30)
[2018-07-25 07:11] LABS: INR 2.44; PROTHROMBIN TIME 28.6 SECONDS (9.4-12.5)
--- NOTE | 2018-07-25 07:52 | CP.PCM.PN ---
<Phuong Dillon - Last Filed: 07/25/18 09:43> Subjective - Date & Time of Evaluation Date of Evaluation: 07/25/18 Time of Evaluation: 07:00 - Subjective Subjective: PGY-[address] Lincoln's service Patient seen and examined at bedside in TCU. No acute distress. Patient states her breathing has improved. Patient was confused of her COPD, all her questions wee answered. Yesterday nurse reported that patient had not urinated and bladder scan showed over 500cc, patient was straight cath. Patient had not had BM in a few days. Patient denies chest pain, abd pain, headache, n/v, urinary symptoms. She denies any complaints. Objective - Vital Signs/Intake and Output Vital Signs (last 24 hours): Temp Pulse Resp BP Pulse Ox 97.6 F 81 20 134/81 96 07/25/18 06:00 07/25/18 06:00 07/25/18 06:00 07/25/18 06:00 07/25/18 06:00 - Medications Medications: Current Medications Albuterol/Ipratropium (Duoneb 3 Mg/0.5 Mg (3 Ml) Ud) 3 ml IH [id number] HECTOR; Protocol Last Admin: 07/24/18 20:22 Dose: 3 ml Albuterol/Ipratropium (Duoneb 3 Mg/0.5 Mg (3 Ml) Ud) 3 ml IH Q2H PRN; Protocol PRN Reason: Shortness of Breath Last Admin: 07/24/18 05:15 Dose: 3 ml Arformoterol Tartrate (Brovana) 15 mcg IH [id number] HECTOR; Protocol Last Admin: 07/24/18 20:21 Dose: 15 mcg Atorvastatin Calcium (Lipitor) 10 mg PO DIN HECTOR; Protocol Last Admin: 07/24/18 17:39 Dose: 10 mg Azithromycin (Zithromax) 500 mg PO DAILY HECTOR; Protocol Stop: 07/27/18 10:01 Last Admin: 07/24/18 10:16 Dose: 500 mg Benzocaine/Menthol (Cepacol Sore Throat) 1 stephanie MT Q2H PRN; Protocol PRN Reason: Sore Throat Budesonide (Pulmicort Respules) 0.5 mg IH [id number] HECTOR Last Admin: 07/24/18 20:22 Dose: 0.5 mg Clonidine HCl (Catapres) 0.1 mg PO BID PRN; Protocol PRN Reason: Systolic Blood Pressure Last Admin: 07/24/18 06:49 Dose: 0.1 mg Docusate Sodium (Colace) 100 mg PO BID [facility] Last Admin: 07/24/18 18:43 Dose: 100 mg Famotidine (Pepcid) 20 mg PO 1000,2200 HECTOR; Protocol Last Admin: 07/24/18 21:34 Dose: 20 mg Furosemide (Lasix) 40 mg PO DAILY [facility] Guaifenesin (Robitussin) 100 mg PO Q4H PRN; Protocol PRN Reason: Cough Last Admin: 07/25/18 05:30 Dose: 100 mg Insulin Human Regular (Humulin R Low) 0 units SC [facility]; Protocol Last Admin: 07/24/18 22:18 Dose: Not Given Isosorbide Mononitrate (Imdur) 60 mg PO 0600 HECTOR; Protocol Last Admin: 07/25/18 05:25 Dose: 60 mg Levothyroxine Sodium (Synthroid) 100 mcg PO 0600 HECTOR; Protocol Last Admin: 07/25/18 05:25 Dose: 100 mcg Methylprednisolone (Solu-Medrol) 40 mg IVP 0600,1800 HECTOR; Protocol Last Admin: 07/25/18 05:25 Dose: 40 mg Morphine Sulfate (Morphine Immediate Release Tab) 15 mg PO 1000,2200 HECTOR; Protocol Last Admin: 07/24/18 22:18 Dose: Not Given Ondansetron HCl (Zofran Inj) 4 mg IVP Q6H PRN PRN Reason: Nausea/Vomiting Last Admin: 07/24/18 10:25 Dose: 4 mg Oxycodone/Acetaminophen (Percocet 10/325 Mg Tab) 1 tab PO TID PRN; Protocol PRN Reason: Pain, moderate (4-7) Last Admin: 07/24/18 05:14 Dose: 1 tab Warfarin Sodium (Coumadin) 5 mg PO DAILY [facility]; Protocol Last Admin: 07/24/18 10:16 Dose: 5 mg Zolpidem Tartrate (Ambien) 5 mg PO HS [facility]; Protocol Last Admin: 07/24/18 21:34 Dose: 5 mg - Labs Labs: 07/24/18 08:00 07/24/18 08:00 PT 28.6 SECONDS (9.4-12.5) H 07/25/18 06:30 INR 2.44 07/25/18 06:30 APTT 54.1 Seconds (25.1-36.5) H 07/24/18 08:00 - Additional Findings Additional findings: - Constitutional Appears: No Acute Distress - Head Exam Head Exam: ATRAUMATIC, NORMAL INSPECTION, NORMOCEPHALIC - Eye Exam Eye Exam: EOMI, Normal appearance - ENT Exam ENT Exam: Mucous Membranes Moist, Normal External Ear Exam. absent: Mucous Membranes Dry - Neck Exam Neck exam: Positive for: Full Rom. Negative for: Meningismus Additional comments: bilateral scars - Respiratory Exam Respiratory Exam: Wheezes, NORMAL BREATHING PATTERN. absent: Accessory Muscle Use, Chest Wall Tenderness, Decreased Breath Sounds, Rales, Rhonchi, Respiratory Distress Additional comments: on nasal cannula - Cardiovascular Exam Cardiovascular Exam: REGULAR RHYTHM, +S1, +S2. absent: Bradycardia, Tachycardia, Diastolic murmur, Systolic Murmur - GI/Abdominal Exam GI & Abdominal Exam: Normal Bowel Sounds, Soft. absent: Diminished Bowel Sounds, Distended, Firm, Guarding, Tenderness - Extremities Exam Extremities exam: Positive for: normal inspection. Negative for: calf tenderness, pedal edema, tenderness - Neurological Exam Neurological exam: Alert, CN II-XII Intact, Oriented x3 Additional comments: strength 5/5 in all extremities - Psychiatric Exam Psychiatric exam: absent: agitation, anxiety, depression - Skin Skin Exam: Dry, Intact, Normal Color, Warm Assessment and Plan - Assessment and Plan (Free Text) Assessment: COPD exacerbation GEORGE on CKD IIIA - possibly pre-renal A.fib (on Coumadin) sub therapeutic INR CAD s/p CABG Mechanical mitral valve Ischemic cardiomyopathy s/p pacer/AICD HTN HLD DM II Compression fractures on chronic pain medication Iron deficiency Anemia- stable CVA Peripheral neuropathy Hypothyroidism Labs and imaging reviewed. Patient is on Zithromax PO, cont Duonebs, Robitussin and Pulmicort for COPD exacerbation. will continue Solumedrol 30 mg q12. pulmonary consulted. CXR on 07/20 did not show evidence of pneumonia but showed mild to moderate cardiomegaly with mild vascular and interstitial congestion. Patient has extensive cardiac history, cardiology consulted, recommended follow up with [facility] [facility] for end of life of her pacemaker. Patient INR is 2.4, continue warfarin 5mg and discontinue heparin. TSH was low most likely due to nonadherence of medications will continue current dose of Synthroid. Continue medications of Lipitor, Coumadin, Imdur. Metformin on hold and will place pat ient on insulin sliding scale. Will continue patient home pain medications, Morphine instant release and percocet. Patient is on Pepcid and Zofran for nausea. Continue PT while patient in TCU. Case seen, discussed and reviewed with Dr. Lincoln <Joaquín Lincoln - Last Filed: 07/28/18 21:31> Objective - Vital Signs/Intake and Output Vital Signs (last 24 hours): Temp Pulse Resp BP Pulse Ox 98.1 F 81 18 120/68 95 07/28/18 16:00 07/28/18 17:22 07/28/18 16:00 07/28/18 16:00 07/28/18 17:22 - Medications Medications: Current Medications Albuterol/Ipratropium (Duoneb 3 Mg/0.5 Mg (3 Ml) Ud) 3 ml IH [id number] HECTOR; Protocol Last Admin: 07/28/18 20:50 Dose: Not Given Albuterol/Ipratropium (Duoneb 3 Mg/0.5 Mg (3 Ml) Ud) 3 ml IH Q2H PRN; Protocol PRN Reason: Shortness of Breath Last Admin: 07/24/18 05:15 Dose: 3 ml Arformoterol Tartrate (Brovana) 15 mcg IH [id number] HECTOR; Protocol Last Admin: 07/28/18 20:50 Dose: Not Given Atorvastatin Calcium (Lipitor) 10 mg PO DIN HECTOR; Protocol Last Admin: 07/28/18 17:17 Dose: 10 mg Benzocaine/Menthol (Cepacol Sore Throat) 1 stephanie MT Q2H PRN; Protocol PRN Reason: Sore Throat Budesonide (Pulmicort Respules) 0.5 mg IH [id number] HECTOR Last Admin: 07/28/18 20:50 Dose: Not Given Clonidine HCl (Catapres) 0.1 mg PO BID PRN; Protocol PRN Reason: Systolic Blood Pressure Last Admin: 07/25/18 09:34 Dose: 0.1 mg Docusate Sodium (Colace) 100 mg PO BID HECTOR Last Admin: 07/28/18 17:17 Dose: 100 mg Famotidine (Pepcid) 20 mg PO 1000,2200 HECTOR; Protocol Last Admin: 07/28/18 10:29 Dose: 20 mg Furosemide (Lasix) 40 mg PO DAILY [facility] Last Admin: 07/28/18 10:30 Dose: 40 mg Guaifenesin (Robitussin) 100 mg PO Q4H PRN; Protocol PRN Reason: Cough Last Admin: 07/25/18 05:30 Dose: 100 mg Insulin Human Regular (Humulin R Low) 0 units SC ACHS [facility]; Protocol Last Admin: 07/28/18 17:17 Dose: Not Given Isosorbide Mononitrate (Imdur) 60 mg PO 0600 HECTOR; Protocol Last Admin: 07/28/18 05:10 Dose: 60 mg Levothyroxine Sodium (Synthroid) 100 mcg PO 0600 HECTOR; Protocol Last Admin: 07/28/18 05:10 Dose: 100 mcg Lorazepam (Ativan) 1 mg PO Q6H PRN; Protocol PRN Reason: Agitation Morphine Sulfate (Morphine Immediate Release Tab) 15 mg PO 1000,2200 HECTOR; Protocol Last Admin: 07/28/18 10:30 Dose: Not Given Ondansetron HCl (Zofran Inj) 4 mg IVP Q6H PRN PRN Reason: Nausea/Vomiting Last Admin: 07/24/18 10:25 Dose: 4 mg Prednisone (Prednisone Tab) 20 mg PO DAILY [facility] Last Admin: 07/28/18 10:29 Dose: 20 mg Warfarin Sodium (Coumadin) 1 mg PO 1800 HECTOR; Protocol Last Admin: 07/28/18 17:18 Dose: 1 mg Zolpidem Tartrate (Ambien) 5 mg PO HS HECTOR; Protocol Last Admin: 07/27/18 22:28 Dose: Not Given - Labs Labs: 07/24/18 08:00 07/24/18 08:00 PT 36.6 SECONDS (9.4-12.5) H 07/28/18 06:00 INR 3.11 07/28/18 06:00 APTT 54.1 Seconds (25.1-36.5) H 07/24/18 08:00 Assessment and Plan - Assessment and Plan (Free Text) Assessment: Pt seen and examined. I have reviewed the note of the medical billing manager and agree with it. I have discussed the assessment and plan with the resident. I have reviewed the patient's labs and medications. Pt with COPD with Duoneb and Solumedrol. Pt with [facility] valve and INR is acceptable. Will continue with Lipitor for dyslipidemia. She is on Zofran for nausea. PT to continue.
[2018-07-25] MEDS: Insulin Reg-LOW-Coverage SC SCH ×4 (08:00→21:43)
[2018-07-25] MEDS: Morphine 15 mg Immediate Release Tab PO SCH ×2 (09:38→21:42)
--- NOTE | 2018-07-25 09:50 | PN ---
DATE: 07/25/2018 PULMONARY PROGRESS NOTE SUBJECTIVE: The patient was seen and examined in Transitional Care Unit. She is receiving nebulizer treatment with Brovana and budesonide. She is still on Solu-Medrol at 40 mg and she is on antibiotics orally daily. PHYSICAL EXAMINATION VITAL SIGNS: Her temperature is 98.2, pulse 81, respirations 20, pulse oximetry is 96% on room air. HEENT: Examination of head, ear, nose and throat is within normal limits. NECK: Supple with no jugular vein distentions. CARDIOVASCULAR: S1 and S2. No S3. Regular. PULMONARY: Diminished breath sounds bilaterally with few rhonchi. No wheezing. GASTROINTESTINAL: Soft and nontender. There is no organomegaly. EXTREMITIES: No pedal edema. SKIN: No acute skin rash. NEUROLOGIC: Limited at the present time. LABORATORY DATA: There is no new laboratory data today. ASSESSMENT: 1. Chronic obstructive pulmonary disease exacerbation. 2. Pulmonary vascular congestion. 3. Cardiomyopathy. PLAN: The patient is on inhalant bronchodilators and inhalant steroids as well as intravenous steroids. Intravenous steroids can be switched to oral and taper. Her condition is gradually improving. We will follow intermittently. Barrera Gama MD
[2018-07-25] MEDS: Arformoterol 15 mcg/2 ml Inh Sol IH SCH (20:08)
[2018-07-25] MEDS: Albuterol-Ipratrop 3 mg / 0.5 (3 ml) UD IH SCH ×2 (20:09→20:16)
[2018-07-25] MEDS: Budesonide 0.5 mg/2 ml Inhal Susp UD IH SCH ×2 (20:09→20:16)
--- NOTE | 2018-07-25 20:55 | PN ---
DATE: 07/25/2018 REASON FOR CONSULTATION AND FOLLOWUP: Continuity of care in transitional care unit, coronary artery disease, history of CABG, history of atrial fibrillation on Coumadin, subtherapeutic INR, status post AICD, has a history of mechanical valve replacement. PHYSICAL EXAMINATION: VITAL SIGNS: Temperature afebrile, heart rate 80, blood pressure 132/80. HEENT: PERRLA. Extraocular muscles intact. NECK: Supple. No carotid bruit or thyromegaly. CHEST: Clear to auscultation. HEART: S1 and S2, regular. ABDOMEN: Soft. EXTREMITIES: Clubbing and cyanosis negative. LABORATORY DATA: Blood workup as follows: WBC 8.8, hemoglobin 10.9, hematocrit 33.1 and platelet count 165. INR 2.44. Chemistry showed sodium 135, potassium 5.3, chloride 102, carbon dioxide 24, anion gap of 17, BUN 52, creatinine 2. IMPRESSION: A 78-year-old female with past medical history significant for coronary artery disease, status post coronary artery bypass surgery, status post mechanical valve replacement, atrial fibrillation, history of multiple cerebrovascular accident, history of breast cancer, status post right mastectomy, history of automatic implantable cardioverter-defibrillator, end of the life interrogation done. RECOMMENDATION: Continue Coumadin. Goal is to keep INR between 2 to 2.5. Discontinue Coumadin since she has therapeutic INR. Defibrillator, [facility]. Discussed with Dr. Esteves's office. Once the patient goes home, we will arrange for pacemaker, AICD generator change because of end of the life. Discontinue heparin and we will change the Coumadin to 3 mg from tomorrow because it will overshoot. Since the INR today is 2.44 so I will put 2.5 mg daily and the daily PT/INR. We will discontinue Coumadin 5 from today and change to 2.5. Daily PT/INR. Cyril Naranjo MD
[2018-07-26] MEDS: Albuterol-Ipratrop 3 mg / 0.5 (3 ml) UD IH SCH ×4 (01:50→19:36)
[2018-07-26] MEDS: MethylPREDNISolone 40 mg Vial IVP SCH ×2 (05:34→17:25)
[2018-07-26] MEDS: Levothyroxine 100 MCG TAB PO SCH (05:35)
[2018-07-26 06:54] LABS: INR 3.27; PROTHROMBIN TIME 38.5 SECONDS (9.4-12.5)
[2018-07-26] MEDS: Arformoterol 15 mcg/2 ml Inh Sol IH SCH ×2 (07:45→19:36)
[2018-07-26] MEDS: Budesonide 0.5 mg/2 ml Inhal Susp UD IH SCH ×2 (07:45→19:36)
[2018-07-26] MEDS: Insulin Reg-LOW-Coverage SC SCH ×4 (09:29→21:47)
[2018-07-26] MEDS: Morphine 15 mg Immediate Release Tab PO SCH ×2 (09:30→21:34)
--- NOTE | 2018-07-26 11:37 | PN ---
DATE: 07/26/2018 PULMONARY PROGRESS NOTE SUBJECTIVE: The patient remains awake and alert, in Transitional Care Unit. She is feeling markedly improved. She remains on vigorous inhalation therapy. She remains on corticosteroids, which need to be discontinued. She continues to receive antibiotics for by Infectious Disease. The patient states that she is markedly improved and awaiting discharge. She is not aware of that exact date, but is anxious to leave the hospital. PHYSICAL EXAMINATION: GENERAL: The patient remains comfortable, in no acute distress. VITAL SIGNS: Stable. She is afebrile. Temperature 98.6, pulse 80, respiratory rate 18, pulse oximetry 96% on room air. HEENT: Normocephalic, atraumatic. NECK: Supple. No jugular venous distention. No lymphadenopathy. No bruit. CARDIOVASCULAR: Regular rhythm. S1, S2 without murmur, gallop or rub. CHEST: Global decrease in breath sounds. Minimal rhonchi appreciated. No wheezing noted. ABDOMEN: Soft. Bowel sounds normoactive without mass, guarding, rebound or organomegaly. EXTREMITIES: Reveal no clubbing, cyanosis or edema. There is no Homans' sign. SKIN: No rash or excoriation. NEUROLOGIC: Awake, alert, oriented. No focal findings noted. LABORATORY DATA: No new data is available today. ASSESSMENT: 1. Chronic obstructive pulmonary disease. 2. Status post exacerbation. 3. Pulmonary vascular congestion in resolution. 4. Cardiomyopathy. PLAN: 1. Continue vigorous bronchodilators and corticosteroids. Decrease corticosteroids as tolerated. 2. We will continue diuretic therapy. The patient is to be followed as an outpatient. Arrangements will be made prior to discharge for this to take place. We will discuss with Dr. Garcia regarding long-term followup. Must follow chest x-ray to complete resolution. Thank you for the opportunity to evaluate this patient and continue to care for her. Please feel free to contact us if we can be of continued help in her care. Dung Mejía MD
--- NOTE | 2018-07-26 23:36 | PN ---
DATE: 07/26/2018 SUBJECTIVE: The patient is 78 years old, seen and examined. The patient seems to be in discomfort. She was having difficulty voiding. Nurse called Dr. Lincoln and had received order for straight Fritz catheter and more than 500 mL of the urine was drained. The patient felt good relief. PHYSICAL EXAMINATION: GENERAL: On examination, otherwise, she is awake, alert, oriented, communicative. VITAL SIGNS: She is afebrile, pulse 79, respirations 20, blood pressure 136/88. LUNGS: Bilateral good airflow. No rhonchi or crackle. HEART: S1 and S2 audible. ABDOMEN: Soft. Had suprapubic discomfort. This seems to be resolved after . EXTREMITIES: Bilateral leg, no edema. LABORATORY EXAM: PT 38.5, INR 3.27. Chemistry: Blood sugar is 126. ASSESSMENT: 1. Status post urinary retention. 2. Coronary artery disease, status post angioplasty. 3. Chronic atrial fibrillation. 4. History of cerebrovascular accident. 5. History of cancer of breast, status post mastectomy. 6. Status post defibrillator placement. 7. The patient does have a history of chronic obstructive pulmonary disease. PLAN: The patient is currently on Brovana. She is on Coumadin 2.5 daily. I will hold her Coumadin for today. Currently, she is on Solu-Medrol 40 mg every 12. We will change it to p.o. prednisone. She is on p.o. Zithromax. We will follow up PT, INR in the a.m. Madeline Bach MD
[2018-07-27] MEDS: Albuterol-Ipratrop 3 mg / 0.5 (3 ml) UD IH SCH ×4 (01:25→19:24)
[2018-07-27] MEDS: Levothyroxine 100 MCG TAB PO SCH (05:32)
[2018-07-27] MEDS: Insulin Reg-LOW-Coverage SC SCH ×4 (06:29→22:29)
[2018-07-27 06:50] LABS: PROTHROMBIN TIME 43.8 SECONDS (9.4-12.5)
[2018-07-27 07:00] LABS: INR 3.71
[2018-07-27] MEDS: Arformoterol 15 mcg/2 ml Inh Sol IH SCH ×2 (07:27→19:23)
[2018-07-27] MEDS: Budesonide 0.5 mg/2 ml Inhal Susp UD IH SCH ×2 (07:28→19:24)
[2018-07-27] MEDS: Morphine 15 mg Immediate Release Tab PO SCH ×2 (09:37→21:42)
--- NOTE | 2018-07-27 20:55 | PN ---
DATE: 07/27/2018 SUBJECTIVE: The patient is 78 years old, seen and examined, doing well, ambulating; had urinary retention yesterday, Fritz was placed and drained more than 700 mL of urine. Offers no complaint. PHYSICAL EXAMINATION VITAL SIGNS: She is afebrile, pulse 78, respirations 18, blood pressure 118/65. LUNGS: Bilateral fair airflow. No rhonchi or crackle. HEART: S1 and S2 audible. ABDOMEN: Soft, nontender. No rebound. No guarding. NEUROLOGIC: The patient is alert, awake, oriented, communicative, ambulatory. LABORATORY DATA: Blood sugar is 116. PT 43.8, INR 3.71. ASSESSMENT: 1. Status post urinary retention. 2. Coronary artery disease status post angioplasty. 3. Chronic atrial fibrillation. 4. History of cerebrovascular accident. 5. History of chronic obstructive pulmonary disease. PLAN: Continue her on nebulizer treatment. We will hold her Coumadin. Continue her on IV diuretics. Analgesics as needed. She is on prednisone 20 b.i.d. She has no active wheezing, her prednisone can be tapered down further to 20 daily. Madeline Bach MD
[2018-07-28] MEDS: Albuterol-Ipratrop 3 mg / 0.5 (3 ml) UD IH SCH ×4 (01:10→20:50)
[2018-07-28] MEDS: Levothyroxine 100 MCG TAB PO SCH (05:10)
[2018-07-28] MEDS: Insulin Reg-LOW-Coverage SC SCH ×4 (06:40→21:38)
[2018-07-28 06:41] LABS: INR 3.11; PROTHROMBIN TIME 36.6 SECONDS (9.4-12.5)
[2018-07-28] MEDS: Arformoterol 15 mcg/2 ml Inh Sol IH SCH ×2 (07:24→20:50)
[2018-07-28] MEDS: Budesonide 0.5 mg/2 ml Inhal Susp UD IH SCH ×2 (07:24→20:50)
--- NOTE | 2018-07-28 07:48 | PN ---
DATE: 07/28/2018 PULMONARY NOTE DICTATION SUBJECTIVE: The patient appears comfortable this morning. She is not short of breath at rest. PHYSICAL EXAMINATION: VITAL SIGNS: Temperature 98.6, pulse 80, respirations 18, blood pressure 127/83. Oxygen saturation on nasal cannula is 97%. HEENT: Normocephalic, atraumatic. No JVD. CARDIOVASCULAR: Systolic ejection murmur at the lower left sternal border. Questionable S3 gallop. LUNGS: Decreased breath sounds at the bases with minimal crackles. Much less/minimal rhonchi. No wheezing. EXTREMITIES: No clubbing, cyanosis or edema. Calves are nontender to palpation. GI: Abdomen is soft, nontender and nondistended. Bowel sounds are positive. SKIN: No acute rash. NEUROLOGIC: Exam limited at the present time. IMPRESSION: 1. Acute bronchitis. 2. Chronic obstructive pulmonary disease. 3. Mild congestive heart failure. 4. Cardiomyopathy. 5. Atrial fibrillation. 6. Mild bronchospasm. PLAN The patient appears very comfortable this morning. She is not short of breath at rest. She does state to feeling much better overall. On physical exam, her bronchospasm continues to resolve. In addition, the alveolar-arterial gradient also continues to resolve. I will continue with the current nebulizer treatments and jes dose oral steroids for now. Input by Cardiology is also noted. Clinical status of the patient is certainly improved - compared to her initial presentation. However, again, the future status/prognosis for this patient does remain somewhat guarded. I will discuss the above with the attending physician. Karl Gomez MD [facility]
[2018-07-28] MEDS: Morphine 15 mg Immediate Release Tab PO SCH ×2 (10:30→21:39)
--- NOTE | 2018-07-28 14:12 | PN ---
DATE: 07/28/2018 REASON FOR CONSULTATION AND FOLLOWUP: Continuity of care in transitional care unit, history of CABG, history of atrial fibrillation, on Coumadin, subtherapeutic INR, status post AICD, history of mechanical mitral valve replacement, end of the life of AICD. SUBJECTIVE: The patient denies any chest pain, shortness of breath, or any palpitation. OBJECTIVE: GENERAL: Not in apparent distress. Denies any chest pain. VITAL SIGNS: Temperature afebrile, heart rate 80, blood pressure 127/83. HEENT: PERRLA. Extraocular muscles intact. NECK: Supple. No carotid bruit or thyromegaly. CHEST: Clear to auscultation. HEART: S1 and S2, regular. ABDOMEN: Soft. EXTREMITIES: Clubbing and cyanosis negative. LABORATORY DATA: Blood workup as follows, WBC 8.2, hemoglobin 10.9, hematocrit 33.1, and platelet count 165 as of 07/24/2018. As of 07/24/2018, chemistry showed sodium 136, potassium 5.3, chloride 102, carbon dioxide 24, anion gap of 17. BUN 52, creatinine 2. INR today 3.1. IMPRESSION: Supratherapeutic INR, history of chronic atrial fibrillation, history of coronary artery bypass graft, history of ischemic cardiomyopathy, status post automatic implantable cardioverter-defibrillator, end of the life of automatic implantable cardioverter-defibrillator, status post mechanical mitral valve placement in the past, history of cerebrovascular accident, history of atrial fibrillation, history of chronic obstructive pulmonary disease exacerbation. RECOMMENDATION: Hold Coumadin. Continue . Continue p.o. Lasix. Continue atorvastatin. Continue aggressive treatment for COPD. Now keep INR on 2.5. Arrangement has been made with Dr. Esteves's office for AICD generator change upon discharge. Patient will see Dr. Esteves and will schedule for generator change. We will put on 1 mg of Coumadin today because INR is 3, tomorrow will dip down. PT/INR tomorrow. Coumadin yesterday was 3.2 and today is 3.1, so we will give 1 mg from today. Cyril Naranjo MD [facility] # [id number]
[2018-07-28] MEDS: guaiFENesin 100 mg/5 ml Syrup UD PO PRN (21:39)
[2018-07-29] MEDS: Albuterol-Ipratrop 3 mg / 0.5 (3 ml) UD IH SCH ×3 (02:47→13:32)
[2018-07-29] MEDS: Levothyroxine 100 MCG TAB PO SCH (05:22)
[2018-07-29] MEDS: Insulin Reg-LOW-Coverage SC SCH ×4 (06:44→21:21)
[2018-07-29 07:12] LABS: GRAN # 5.54 (1.4-6.5); GRAN % 90.4 % (50.0-68.0); LYMPH # 0.3 (1.2-3.4); LYMPH % 5.2 % (22.0-35.0); MEAN CELL VOLUME 99.7 fl (80.0-105.0); MEAN CORPUSCULAR HEMOGLOBIN 32.8 pg (25.0-35.0); MEAN CORPUSCULAR HGB CONC 32.9 g/dl (31.0-37.0); MEAN PLATELET VOLUME 10.2 fl (7.0-11.0); MONO # 0.3 (0.1-0.6); MONO % 4.4 % (1.0-6.0); PLATELET COUNT 105 10^3/uL (120.0-450.0); RBC 3.35 10^6/uL (3.5-6.1); RED CELL DISTRIBUTION WIDTH 15.5 % (11.5-14.5); WHITE BLOOD COUNT 6.1 10^3/ul (4.5-11.0)
[2018-07-29 07:18] LABS: INR 2.34; PROTHROMBIN TIME 27.4 SECONDS (9.4-12.5)
[2018-07-29 07:35] LABS: CALCIUM 9.3 mg/dL (8.4-10.5)
--- NOTE | 2018-07-29 07:48 | PN ---
DATE: 07/29/2018 PULMONARY NOTE DICTATION SUBJECTIVE: The patient appears very comfortable this morning. She is not short of breath at rest. She is out of bed, sitting in the chair. PHYSICAL EXAMINATION: VITAL SIGNS: (Last noted in the computer): Temperature is 98.1, pulse 81, respirations 18, blood pressure 120/68. Oxygen saturation on room air is 95%. HEENT: Normocephalic, atraumatic. No JVD. CARDIOVASCULAR: Systolic ejection murmur at the lower left sternal border. Questionable S3 gallop. LUNGS: Decreased breath sounds at the bases with minimal crackles. Very minimal/less rhonchi. No wheezing. EXTREMITIES: No clubbing, cyanosis or edema. Calves are nontender to palpation. GI: Abdomen is soft, nontender and nondistended. Bowel sounds are positive. SKIN: No acute rash. NEUROLOGIC: Exam limited at the present time. IMPRESSION: 1. Acute bronchitis. 2. Chronic obstructive pulmonary disease. 3. Mild congestive heart failure. 4. Cardiomyopathy. 5. Atrial fibrillation. 6. Mild bronchospasm. PLAN: The patient appears very comfortable this morning. She is not short of breath at rest. She does state to feeling much better overall. I did discuss the case with the night nurse at length. The night nurse stated that the patient is doing very well overall. On physical exam, her bronchospasm continues to resolve. In addition, the oxygen saturation on room air is now 95%. I will continue the current nebulizer treatments and low-dose oral steroids for now. Input by Cardiology is also noted. The patient remains on low-dose oral Lasix. Repeat a.m. labs are pending. Clinical status of the patient is significantly improved - compared to last week. However, again, the future status/prognosis for this patient does remain guarded. I will discuss the above with Dr. Lincoln. Karl Gomez MD [facility]
[2018-07-29 07:53] LABS: BAND 1 % (0-2); LYMPHOCYTE 5 % (22.0-35.0); MONOCYTE 3 % (1.0-6.0); NEUTROPHIL 91 % (50.0-70.0)
[2018-07-29 07:54] LABS: PLATELET ESTIMATE NORMAL (NORMAL)
[2018-07-29] MEDS: Budesonide 0.5 mg/2 ml Inhal Susp UD IH SCH (08:34)
[2018-07-29] MEDS: Arformoterol 15 mcg/2 ml Inh Sol IH SCH (08:34)
[2018-07-29] MEDS: Morphine 15 mg Immediate Release Tab PO SCH ×2 (09:45→21:21)
--- NOTE | 2018-07-29 10:06 | CP.PCM.PN ---
<Phuong Dillon - Last Filed: 07/29/18 10:53> Subjective - Date & Time of Evaluation Date of Evaluation: 07/29/18 Time of Evaluation: 07:00 - Subjective Subjective: PGY-[address] Lincoln's service Patient seen and examined at bedside in TCU. No acute distress. Patient states her breathing has improved. Patient wants to go home, she denies chest pain, sob, cough, abd pain, weakness, dysuria. Nurse reports overnight patient was retaining urine requiring cordova to be reinserted. Objective - Vital Signs/Intake and Output Vital Signs (last 24 hours): Temp Pulse Resp BP Pulse Ox 98.1 F 81 18 139/84 95 07/28/18 16:00 07/28/18 17:22 07/28/18 16:00 07/29/18 09:45 07/28/18 17:22 Intake and Output: 07/29/18 07/29/18 06:59 18:59 Output Total 2100 Balance -2100 - Medications Medications: Current Medications Albuterol/Ipratropium (Duoneb 3 Mg/0.5 Mg (3 Ml) Ud) 3 ml IH [id number] HECTOR; Protocol Last Admin: 07/29/18 08:34 Dose: Not Given Albuterol/Ipratropium (Duoneb 3 Mg/0.5 Mg (3 Ml) Ud) 3 ml IH Q2H PRN; Protocol PRN Reason: Shortness of Breath Last Admin: 07/24/18 05:15 Dose: 3 ml Arformoterol Tartrate (Brovana) 15 mcg IH [id number] HECTOR; Protocol Last Admin: 07/29/18 08:34 Dose: Not Given Atorvastatin Calcium (Lipitor) 10 mg PO DIN HECTOR; Protocol Last Admin: 07/28/18 17:17 Dose: 10 mg Benzocaine/Menthol (Cepacol Sore Throat) 1 stephanie MT Q2H PRN; Protocol PRN Reason: Sore Throat Budesonide (Pulmicort Respules) 0.5 mg IH [id number] HECTOR Last Admin: 07/29/18 08:34 Dose: Not Given Clonidine HCl (Catapres) 0.1 mg PO BID PRN; Protocol PRN Reason: Systolic Blood Pressure Last Admin: 07/25/18 09:34 Dose: 0.1 mg Docusate Sodium (Colace) 100 mg PO BID [facility] Last Admin: 07/29/18 09:44 Dose: 100 mg Famotidine (Pepcid) 20 mg PO 1000,2200 HECTOR; Protocol Last Admin: 07/29/18 09:45 Dose: 20 mg Furosemide (Lasix) 40 mg PO DAILY [facility] Last Admin: 07/29/18 09:45 Dose: 40 mg Guaifenesin (Robitussin) 100 mg PO Q4H PRN; Protocol PRN Reason: Cough Last Admin: 07/28/18 21:39 Dose: 100 mg Insulin Human Regular (Humulin R Low) 0 units SC ACHS HECTOR; Protocol Last Admin: 07/29/18 06:44 Dose: Not Given Isosorbide Mononitrate (Imdur) 60 mg PO 0600 HECTOR; Protocol Last Admin: 07/29/18 05:22 Dose: 60 mg Levothyroxine Sodium (Synthroid) 100 mcg PO 0600 HECTOR; Protocol Last Admin: 07/29/18 05:22 Dose: 100 mcg Lorazepam (Ativan) 1 mg PO Q6H PRN; Protocol PRN Reason: Agitation Morphine Sulfate (Morphine Immediate Release Tab) 15 mg PO 1000,2200 HECTOR; Protocol Last Admin: 07/29/18 09:45 Dose: Not Given Ondansetron HCl (Zofran Inj) 4 mg IVP Q6H PRN PRN Reason: Nausea/Vomiting Last Admin: 07/24/18 10:25 Dose: 4 mg Prednisone (Prednisone Tab) 20 mg PO DAILY [facility] Last Admin: 07/29/18 09:45 Dose: 20 mg Warfarin Sodium (Coumadin) 1 mg PO 1800 HECTOR; Protocol Last Admin: 07/28/18 17:18 Dose: 1 mg Zolpidem Tartrate (Ambien) 5 mg PO HS HECTOR; Protocol Last Admin: 07/28/18 21:38 Dose: Not Given - Labs Labs: 07/29/18 06:45 07/29/18 06:45 PT 27.4 SECONDS (9.4-12.5) H 07/29/18 06:45 INR 2.34 07/29/18 06:45 APTT 54.1 Seconds (25.1-36.5) H 07/24/18 08:00 - Additional Findings Additional findings: - Constitutional Appears: No Acute Distress - Head Exam Head Exam: ATRAUMATIC, NORMAL INSPECTION, NORMOCEPHALIC - Eye Exam Eye Exam: EOMI, Normal appearance - ENT Exam ENT Exam: Mucous Membranes Moist, Normal External Ear Exam. absent: Mucous Membranes Dry - Neck Exam Neck exam: Positive for: Full Rom. Negative for: Meningismus Additional comments: bilateral scars - Respiratory Exam Respiratory Exam: Wheezes (mild), NORMAL BREATHING PATTERN. absent: Accessory Muscle Use, Chest Wall Tenderness, Decreased Breath Sounds, Rales, Rhonchi, Respiratory Distress Additional comments: on nasal cannula - Cardiovascular Exam Cardiovascular Exam: REGULAR RHYTHM, Regular rate, +S1, +S2. absent: Bradycardi a, Tachycardia, Diastolic murmur, Systolic Murmur - GI/Abdominal Exam GI & Abdominal Exam: Normal Bowel Sounds, Soft. absent: Diminished Bowel Sounds, Distended, Firm, Guarding, Tenderness - Extremities Exam Extremities exam: Positive for: normal inspection. Negative for: calf tenderness, pedal edema, tenderness - Neurological Exam Neurological exam: Alert, CN II-XII Intact, Oriented x3, stable gait Additional comments: strength 5/5 in all extremities - Psychiatric Exam Psychiatric exam: absent: agitation, anxiety, depression - Skin Skin Exam: Dry, Intact, Normal Color, Warm Assessment and Plan - Assessment and Plan (Free Text) Assessment: COPD exacerbation- improved urinary retension GEORGE on CKD IIIA - possibly pre-renal A.fib (on Coumadin) sub therapeutic INR CAD s/p CABG Mechanical mitral valve Ischemic cardiomyopathy s/p pacer/AICD HTN HLD DM II Compression fractures on chronic pain medication Iron deficiency Anemia- stable CVA Peripheral neuropathy Hypothyroidism Labs and imaging reviewed. Patient was found to be retenting urine overnight with bladder scan showing 500cc. Cordova was reinserted and urologist was consulted. Patient completed antibiotics. Continue Duonebs, Robitussin and Pulmicort for COPD exacerbation. Steroids decreased to prednisone 20mg daily. pulmonary following. cardiology consulted, recommended follow up with Dr. Esteves's office for end of life of her pacemaker. Patient INR is 2.34, patient was placed on warfarin 1 mg and discontinue heparin. TSH was low most likely due to nonadherence of medications will continue current dose of Synthroid. Continue medications of Lipitor, Coumadin, Imdur. Metformin on hold and will place patient on insulin sliding scale. Will continue patient home pain medications, Morphine instant release and percocet. Patient is on Pepcid and Zofran for nausea. Continue PT while patient in TCU. Case seen, discussed and reviewed with Dr. Lincoln <Joaquín Lincoln - Last Filed: 07/29/18 17:44> Objective - Vital Signs/Intake and Output Vital Signs (last 24 hours): Temp Pulse Resp BP Pulse Ox 97.5 F L 83 16 130/81 97 07/29/18 16:00 07/29/18 16:00 07/29/18 16:00 07/29/18 16:00 07/29/18 16:00 Intake and Output: 07/29/18 07/29/18 06:59 18:59 Output Total 2100 Balance -2100 - Medications Medications: Current Medications Albuterol/Ipratropium (Duoneb 3 Mg/0.5 Mg (3 Ml) Ud) 3 ml IH [id number] HECTOR; Protocol Last Admin: 07/29/18 13:32 Dose: Not Given Albuterol/Ipratropium (Duoneb 3 Mg/0.5 Mg (3 Ml) Ud) 3 ml IH Q2H PRN; Protocol PRN Reason: Shortness of Breath Last Admin: 07/24/18 05:15 Dose: 3 ml Arformoterol Tartrate (Brovana) 15 mcg IH [id number] HECTOR; Protocol Last Admin: 07/29/18 08:34 Dose: Not Given Atorvastatin Calcium (Lipitor) 10 mg PO DIN HECTOR; Protocol Last Admin: 07/28/18 17:17 Dose: 10 mg Benzocaine/Menthol (Cepacol Sore Throat) 1 stephanie MT Q2H PRN; Protocol PRN Reason: Sore Throat Budesonide (Pulmicort Respules) 0.5 mg IH [id number] HECTOR Last Admin: 07/29/18 08:34 Dose: Not Given Clonidine HCl (Catapres) 0.1 mg PO BID PRN; Protocol PRN Reason: Systolic Blood Pressure Last Admin: 07/25/18 09:34 Dose: 0.1 mg Docusate Sodium (Colace) 100 mg PO BID HECTOR Last Admin: 07/29/18 09:44 Dose: 100 mg Famotidine (Pepcid) 20 mg PO 1000,2200 HECTOR; Protocol Last Admin: 07/29/18 09:45 Dose: 20 mg Furosemide (Lasix) 40 mg PO DAILY [facility]ECTOR Last Admin: 07/29/18 09:45 Dose: 40 mg Guaifenesin (Robitussin) 100 mg PO Q4H PRN; Protocol PRN Reason: Cough Last Admin: 07/28/18 21:39 Dose: 100 mg Insulin Human Regular (Humulin R Low) 0 units SC ACHS HECTOR; Protocol Last Admin: 07/29/18 11:33 Dose: Not Given Isosorbide Mononitrate (Imdur) 60 mg PO 0600 HECTOR; Protocol Last Admin: 07/29/18 05:22 Dose: 60 mg Levothyroxine Sodium (Synthroid) 100 mcg PO 0600 HECTOR; Protocol Last Admin: 07/29/18 05:22 Dose: 100 mcg Lorazepam (Ativan) 1 mg PO Q6H PRN; Protocol PRN Reason: Agitation Morphine Sulfate (Morphine Immediate Release Tab) 15 mg PO 1000,2200 HECTOR; Protocol Last Admin: 07/29/18 09:45 Dose: Not Given Ondansetron HCl (Zofran Inj) 4 mg IVP Q6H PRN PRN Reason: Nausea/Vomiting Last Admin: 07/24/18 10:25 Dose: 4 mg Prednisone (Prednisone Tab) 20 mg PO DAILY [facility]ECTOR Last Admin: 07/29/18 09:45 Dose: 20 mg Warfarin Sodium (Coumadin) 2 mg PO 1800 HECTOR; Protocol Zolpidem Tartrate (Ambien) 5 mg PO HS HECTOR; Protocol Last Admin: 07/28/18 21:38 Dose: Not Given - Labs Labs: 07/29/18 06:45 07/29/18 06:45 PT 27.4 SECONDS (9.4-12.5) H 07/29/18 06:45 INR 2.34 07/29/18 06:45 APTT 54.1 Seconds (25.1-36.5) H 07/24/18 08:00 Assessment and Plan - Assessment and Plan (Free Text) Assessment: Pt seen and examined. I have reviewed the note of the medical collections and agree with it. I have discussed the assessment and plan with the resident. I have reviewed the patient's labs and medications. Pt with urinary retention and had a cordova placed. She has completed her Abx. She is on Warfarin and INR is therapeutic. Pt is on TCU and getting PT. Urologist consulted. She is aware about her pacemaker that needs follow up. She is on decreasing dose of Prednisone.
[2018-07-29 16:39] VITALS: PULSE 83; RESP 16; TEMP 97.5; O2SAT 97
--- NOTE | 2018-07-29 17:02 | PN ---
DATE: 07/29/2018 REASON FOR CONSULTATION AND FOLLOWUP: Continuity of care in the transitional care unit, history of CABG, history of atrial fibrillation, history of MV mechanical prosthesis with mitral valve replacement, end of the life of AICD. SUBJECTIVE: Patient denies any chest pain, shortness of breath, or any palpitation. OBJECTIVE: GENERAL: Not in apparent distress. VITAL SIGNS: Temperature afebrile, heart rate 81, and blood pressure 139/84. HEENT: PERRLA. Extraocular muscles intact. NECK: Supple. No carotid bruit or thyromegaly. CHEST: Clear to auscultation. HEART: S1 and S2, regular. ABDOMEN: Soft. EXTREMITIES: Clubbing and cyanosis negative. LABORATORY DATA: Blood workup as follows; WBC 6.8, hemoglobin 11, hematocrit 33.4, platelet count 105. Chemistry shows sodium 135, potassium 4.4, chloride 97, carbon dioxide 32, anion gap of 12. BUN 55,creatinine 1.5. Magnesium 2.3. IMPRESSION AND PLAN: A 78-year-old female with past medical history significant for coronary artery disease, coronary artery bypass graft, status post mitral valve mechanical prosthesis, status post automatic implantable cardioverter-defibrillator, end of the life of pacemaker, history of cerebrovascular accident, history of atrial fibrillation, history of chronic obstructive pulmonary disease, history of breast carcinoma and status post mastectomy. Last INR 2.34, dropped from 3.11. We will increase Coumadin to 2 mg from today and continue to monitor INR. Goal is to keep INR around 2.5. Arrangement has been made upon discharge . Patient will be seeing Dr. Esteves for generator change. Already arrangement has been made and informed the patient as well as Dr. Esteves's office. We will follow with you. We will increase Coumadin to 2 mg anticipating that tomorrow will further dip down because INR is decreasing. Initially, patient admitted with supratherapeutic INR. Monitor INR accordingly. Adjust the Coumadin dose accordingly. History of multiple cerebrovascular accident in the past and transient ischemic attack. Thank you, Dr. Lincoln, for providing us the opportunity in taking care of the patient, Franchesca Ohara. Cyril Naranjo MD
[2018-07-30] MEDS: Albuterol-Ipratrop 3 mg / 0.5 (3 ml) UD IH SCH ×2 (01:49→08:12)
[2018-07-30] MEDS: Levothyroxine 100 MCG TAB PO SCH (05:57)
[2018-07-30] MEDS: Insulin Reg-LOW-Coverage SC SCH ×2 (06:59→12:08)
[2018-07-30] MEDS: Arformoterol 15 mcg/2 ml Inh Sol IH SCH (08:12)
[2018-07-30] MEDS: Budesonide 0.5 mg/2 ml Inhal Susp UD IH SCH (08:12)
--- NOTE | 2018-07-30 08:30 | PN ---
DATE: 07/30/2018 PULMONARY NOTE SUBJECTIVE: The patient appears comfortable this morning. She is not short of breath at rest. PHYSICAL EXAMINATION: VITAL SIGNS: (Last noted in the computer): Temperature is 97.5, pulse 83, respirations 16, blood pressure 130/81. Oxygen saturation on room air is 97%. HEENT: Normocephalic, atraumatic. No JVD. CARDIOVASCULAR: Systolic ejection murmur at the lower left sternal border. Questionable S3 gallop. LUNGS: Improved breath sounds at the bases with less crackles. Very minimal/less rhonchi. No wheezing. EXTREMITIES: No clubbing, cyanosis or edema. Calves are nontender to palpation. GI: Abdomen is soft, nontender and nondistended. Bowel sounds are positive. SKIN: No acute rash. NEUROLOGIC: Limited at the present time. IMPRESSION: 1. Acute bronchitis. 2. Chronic obstructive pulmonary disease. 3. Mild congestive heart failure. 4. Cardiomyopathy. 5. Atrial fibrillation. 6. Mild bronchospasm. PLAN: The patient appears very comfortable this morning. She is not short of breath at rest. She does state to feeling much better overall. I did discuss the case with the night nurse at length. The night nurse stated that the patient had a good night. On physical exam, her bronchospasm continues to resolve. In addition, the oxygen saturation on room air is now 97%. I will continue the current nebulizer treatments and decrease the oral steroids this morning. The patient also remains on low-dose oral Lasix. Input by Cardiology (Dr. Naranjo) is noted. Clinical status of the patient is significantly improved - compared to her initial presentation. However, again, the overall status/prognosis for this patient does remain guarded. I will discuss the above with Dr. Lincoln. Karl Gomez MD [facility]
[2018-07-30 08:51] LABS: INR 1.71; PROTHROMBIN TIME 19.9 SECONDS (9.4-12.5)
[2018-07-30] MEDS: Morphine 15 mg Immediate Release Tab PO SCH (10:15)
[2018-07-30 10:19] VITALS: BP 128/73
--- NOTE | 2018-07-30 16:31 | PN ---
DATE: 07/30/2018 LOCATION: Patient in room 322, bed 1. REASON FOR CONSULTATION AND FOLLOWUP: Coronary artery disease, COPD, status post mitral valve replacement, mechanical prosthetic valve, history of atrial fibrillation, end of life of AICD. SUBJECTIVE: Patient lying flat in bed without any chest pain, shortness of breath, or palpitation. PHYSICAL EXAMINATION VITAL SIGNS: Blood pressure 120/73, respirations 16, pulse 83, temperature 97.5. HEENT: Head is normocephalic. Eyes: Pupils normal. Conjunctivae slightly pale. NECK: JVP low. Carotid equal. Thorax AP diameter normal. LUNGS: Clear. CARDIOVASCULAR: S1, S2. Mechanical mitral valve sounds, systolic murmur. No rub. ABDOMEN: Soft, bowel sounds normal. EXTREMITIES: No clubbing, no cyanosis. LABORATORY DATA: WBC 6.1, hemoglobin 11, hematocrit 33.4, platelets 105. Sodium 135, potassium 4.4. BUN 55, creatinine 1.5. . Magnesium 2.3, phosphorous 2.6, calcium 9.3. Random glucose 99. Prothrombin time 19.9, INR 1.71. DIAGNOSES: Coronary artery disease, status post coronary artery bypass graft, status post mitral valve mechanical prostatic, status post automatic implantable cardioverter-defibrillator insertion, end of life of automatic implantable cardioverter-defibrillator battery, history of cerebrovascular accident, history of atrial fibrillation, history of chronic obstructive pulmonary disease, history of breast carcinoma, status post mastectomy. PLAN: Patient will follow as outpatient with Dr. Esteves for battery change for AICD. Arrangements for appointment had been already made and patient had been made aware of all appointments. Patient is on warfarin 2 mg p.o. daily, will give another 2 mg extra today because INR is lower today. Patient on DuoNeb hand nebulizer therapy, isosorbide mono 60 daily, furosemide 40 p.o. daily, atorvastatin 10 daily, Pepcid 20 mg b.i.d., prednisone 10 daily, levothyroxine 100 mg p.o. daily. We will monitor PT/INR. Patient getting physical therapy for deconditioning and will follow with you. Cyril Ferrari MD
--- NOTE | 2018-07-31 07:47 | CP.PCM.DIS ---
<Phuong Dillon - Last Filed: 07/31/18 13:34> Provider - Provider Date of Admission: 07/22/18 16:16 Attending physician: Joaquín Lincoln MD Time Spent in preparation of Discharge (in minutes): 60 Hospital Course - Lab Results Lab Results: Most Recent Lab Values WBC 6.1 10^3/ul (4.5-11.0) D 07/29/18 06:45 RBC 3.35 10^6/uL (3.5-6.1) L 07/29/18 06:45 Hgb 11.0 g/dL (12.0-16.0) L 07/29/18 06:45 Hct 33.4 % (36.0-48.0) L 07/29/18 06:45 MCV 99.7 fl (80.0-105.0) 07/29/18 06:45 MCH 32.8 pg (25.0-35.0) 07/29/18 06:45 MCHC 32.9 g/dl (31.0-37.0) 07/29/18 06:45 RDW 15.5 % (11.5-14.5) H 07/29/18 06:45 Plt Count 105 10^3/uL (120.0-450.0) L 07/29/18 06:45 MPV 10.2 fl (7.0-11.0) 07/29/18 06:45 Gran % 90.4 % (50.0-68.0) H 07/29/18 06:45 Lymph % (Auto) 5.2 % (22.0-35.0) L 07/29/18 06:45 [place] % (Auto) 4.4 % (1.0-6.0) 07/29/18 06:45 Eos % (Auto) 0.0 % (1.5-5.0) L 07/29/18 06:45 Baso % (Auto) 0.0 % (0.0-3.0) 07/29/18 06:45 Gran # 5.54 (1.4-6.5) 07/29/18 06:45 Lymph # (Auto) 0.3 (1.2-3.4) L 07/29/18 06:45 [place] # (Auto) 0.3 (0.1-0.6) 07/29/18 06:45 Eos # (Auto) 0.0 (0.0-0.7) 07/29/18 06:45 Baso # (Auto) 0.00 K/mm3 (0.0-2.0) 07/29/18 06:45 Neutrophils % (Manual) 91 % (50.0-70.0) H 07/29/18 06:45 Band Neutrophils % 1 % (0-2) 07/29/18 06:45 Lymphocytes % (Manual) 5 % (22.0-35.0) L 07/29/18 06:45 Monocytes % (Manual) 3 % (1.0-6.0) 07/29/18 06:45 Platelet Evaluation Normal (NORMAL) 07/29/18 06:45 PT 19.9 SECONDS (9.4-12.5) H 07/30/18 08:30 INR 1.71 07/30/18 08:30 APTT 54.1 Seconds (25.1-36.5) H 07/24/18 08:00 Sodium 135 mmol/L (132-148) 07/29/18 06:45 Potassium 4.4 mmol/L (3.6-5.0) 07/29/18 06:45 Chloride 95 mmol/L (98-107) L 07/29/18 06:45 Carbon Dioxide 32 mmol/L (21-33) 07/29/18 06:45 Anion Gap 12 (10-20) 07/29/18 06:45 BUN 55 mg/dL (7-21) H 07/29/18 06:45 Creatinine 1.5 mg/dl (0.7-1.2) H 07/29/18 06:45 Est GFR ( Amer) 41 07/29/18 06:45 Est GFR (Non-Af Amer) 34 07/29/18 06:45 POC Glucose (mg/dL) 86 mg/dL (65-110) 07/30/18 11:23 Random Glucose 99 mg/dL (70-110) 07/29/18 06:45 Calcium 9.3 mg/dL (8.4-10.5) 07/29/18 06:45 Phosphorus 3.6 mg/dL (2.5-4.5) 07/29/18 06:45 Magnesium 2.3 mg/dL (1.7-2.2) H 07/29/18 06:45 Total Bilirubin 0.9 mg/dL (0.2-1.3) 07/24/18 08:00 AST 37 U/L (14-36) H 07/24/18 08:00 ALT 28 U/L (7-56) 07/24/18 08:00 Alkaline Phosphatase 141 U/L (38-126) H 07/24/18 08:00 Total Protein 7.9 g/dL (5.8-8.3) 07/24/18 08:00 Albumin 4.7 g/dL (3.0-4.8) 07/24/18 08:00 Globulin 3.2 gm/dL 07/24/18 08:00 Albumin/Globulin Ratio 1.5 (1.1-1.8) 07/24/18 08:00 - Hospital Course Hospital Course: 78 yo female with extensive past medical history including CAD, A.fib (on coumadin), mechanical mitral valve, AICD/Pacer, HTN, dyslipidemia, CVA, DMII, compression fractures, CKD IIIA, GI bleed from angiodysplasia, COPD who initially came to ED for shortness of breath and productive cough for 2 days. Patient was treated for COPD exacerbation. Patient was transferred to TCU for further PT. Patient completed antibiotics course and was given Duonebs, Robitussin and Pulmicort for COPD exacerbation. She also received course of Steroids pulmonary was consulted. Cardiology was also consulted for pacemaker and sub therapeutic INR. They recommended outpatient follow up with Dr. Esteves's office for end of life of her pacemaker. Patient was bridged to warfarin with heparin, INR was theraputic. TSH was low most likely due to non adherence of medications current dose of Synthroid was continued. Other chronic conditions were managed. Patient and niece at bedside were educated on medication adherence and follow up. While in the TCU patient was retening urine. Urology was consulted and cordova was discontinued. Patient continued PT while in TCU. Discharge plan and instructions were discussed with patient, she is in agreement. Discharge Exam - Additional Findings Additional findings: Cordova in place - Constitutional Appears: No Acute Distress - Head Exam Head Exam: ATRAUMATIC, NORMAL INSPECTION, NORMOCEPHALIC - Eye Exam Eye Exam: EOMI, Normal appearance - ENT Exam ENT Exam: Mucous Membranes Moist, Normal External Ear Exam. absent: Mucous Membranes Dry - Neck Exam Neck exam: Positive for: Full Rom. Negative for: Meningismus Additional comments: bilateral scars - Respiratory Exam Respiratory Exam: NORMAL BREATHING PATTERN. absent: Accessory Muscle Use, Chest Wall Tenderness, Decreased Breath Sounds, Rales, Rhonchi, wheezing, Respiratory Distress - Cardiovascular Exam Cardiovascular Exam: REGULAR RHYTHM, Regular rate, +S1, +S2. absent: Bradycardia, Tachycardia, Diastolic murmur, Systolic Murmur - GI/Abdominal Exam GI & Abdominal Exam: Normal Bowel Sounds, Soft. absent: Diminished Bowel Sounds, Distended, Firm, Guarding, Tenderness - Extremities Exam Extremities exam: Positive for: normal inspection. Negative for: calf tenderness, pedal edema, tenderness - Neurological Exam Neurological exam: Alert, CN II-XII Intact, Oriented x3, stable gait - Psychiatric Exam Psychiatric exam: absent: agitation, anxiety, depression - Skin Skin Exam: Dry, Intact, Normal Color, Warm Discharge Plan - Follow Up Plan Condition: GOOD Disposition: HOME/ ROUTINE Instructions: Preventing Falls, Exacerbation of COPD (DC), Urinary Retention (DC) Additional Instructions: Follow up with Dr. Oliveros in 3-5 days for discharge Follow up with Dr. Esteves's office for replacement of pacemaker. Referrals: Christian Oliveros MD [Staff Provider] - <Joaquín Lincoln - Last Filed: 07/31/18 16:25> Provider - Provider Date of Admission: 07/22/18 16:16 Attending physician: Joaquín Lincoln MD Hospital Course - Lab Results Lab Results: Most Recent Lab Values WBC 6.1 10^3/ul (4.5-11.0) D 07/29/18 06:45 RBC 3.35 10^6/uL (3.5-6.1) L 07/29/18 06:45 Hgb 11.0 g/dL (12.0-16.0) L 07/29/18 06:45 Hct 33.4 % (36.0-48.0) L 07/29/18 06:45 MCV 99.7 fl (80.0-105.0) 07/29/18 06:45 MCH 32.8 pg (25.0-35.0) 07/29/18 06:45 MCHC 32.9 g/dl (31.0-37.0) 07/29/18 06:45 RDW 15.5 % (11.5-14.5) H 07/29/18 06:45 Plt Count 105 10^3/uL (120.0-450.0) L 07/29/18 06:45 MPV 10.2 fl (7.0-11.0) 07/29/18 06:45 Gran % 90.4 % (50.0-68.0) H 07/29/18 06:45 Lymph % (Auto) 5.2 % (22.0-35.0) L 07/29/18 06:45 [place] % (Auto) 4.4 % (1.0-6.0) 07/29/18 06:45 Eos % (Auto) 0.0 % (1.5-5.0) L 07/29/18 06:45 Baso % (Auto) 0.0 % (0.0-3.0) 07/29/18 06:45 Gran # 5.54 (1.4-6.5) 07/29/18 06:45 Lymph # (Auto) 0.3 (1.2-3.4) L 07/29/18 06:45 [place] # (Auto) 0.3 (0.1-0.6) 07/29/18 06:45 Eos # (Auto) 0.0 (0.0-0.7) 07/29/18 06:45 Baso # (Auto) 0.00 K/mm3 (0.0-2.0) 07/29/18 06:45 Neutrophils % (Manual) 91 % (50.0-70.0) H 07/29/18 06:45 Band Neutrophils % 1 % (0-2) 07/29/18 06:45 Lymphocytes % (Manual) 5 % (22.0-35.0) L 07/29/18 06:45 Monocytes % (Manual) 3 % (1.0-6.0) 07/29/18 06:45 Platelet Evaluation Normal (NORMAL) 07/29/18 06:45 PT 19.9 SECONDS (9.4-12.5) H 07/30/18 08:30 INR 1.71 07/30/18 08:30 APTT 54.1 Seconds (25.1-36.5) H 07/24/18 08:00 Sodium 135 mmol/L (132-148) 07/29/18 06:45 Potassium 4.4 mmol/L (3.6-5.0) 07/29/18 06:45 Chloride 95 mmol/L (98-107) L 07/29/18 06:45 Carbon Dioxide 32 mmol/L (21-33) 07/29/18 06:45 Anion Gap 12 (10-20) 07/29/18 06:45 BUN 55 mg/dL (7-21) H 07/29/18 06:45 Creatinine 1.5 mg/dl (0.7-1.2) H 07/29/18 06:45 Est GFR ( Amer) 41 07/29/18 06:45 Est GFR (Non-Af Amer) 34 07/29/18 06:45 POC Glucose (mg/dL) 86 mg/dL (65-110) 07/30/18 11:23 Random Glucose 99 mg/dL (70-110) 07/29/18 06:45 Calcium 9.3 mg/dL (8.4-10.5) 07/29/18 06:45 Phosphorus 3.6 mg/dL (2.5-4.5) 07/29/18 06:45 Magnesium 2.3 mg/dL (1.7-2.2) H 07/29/18 06:45 Total Bilirubin 0.9 mg/dL (0.2-1.3) 07/24/18 08:00 AST 37 U/L (14-36) H 07/24/18 08:00 ALT 28 U/L (7-56) 07/24/18 08:00 Alkaline Phosphatase 141 U/L (38-126) H 07/24/18 08:00 Total Protein 7.9 g/dL (5.8-8.3) 07/24/18 08:00 Albumin 4.7 g/dL (3.0-4.8) 07/24/18 08:00 Globulin 3.2 gm/dL 07/24/18 08:00 Albumin/Globulin Ratio 1.5 (1.1-1.8) 07/24/18 08:00 - Hospital Course Hospital Course: Pt seen and examined. I have reviewed the note of the medical administrator and agree with it. I have discussed the assessment and plan with the resident. I have reviewed the patient's labs and medications. Pt was discharged home yesterday. I did speak to the family member. Pt will have assistance at home. He COPD has improved. She has finished her Abx. She will need to f/u with cardiology for her pacemaker. She was advised about follow up. She has a cordova due ot retention and was advised to f/u with Dr Louis.
== END 2018-07-30 13:19 | disposition home health service (06) | DRG 191 ==
LOC: TRCU 16:16
PROVIDERS: ADMIT Internal Medicine Nephrology; ATTEND Internal Medicine Nephrology
PROC: F08Z3FZ Feeding/Eating Treatment using Assistive, Adaptive, Supportive or Protective Equipment (ICD-10-PCS; 2018-07-24)
PROC: F07Z5ZZ Bed Mobility Treatment (ICD-10-PCS; principal; 2018-07-25)
PROC: F07L6YZ Therapeutic Exercise Treatment of Musculoskeletal System - Lower Back / Lower Extremity using Other Equipment (ICD-10-PCS; 2018-07-25)
PROC: F07Z9FZ Gait Training/Functional Ambulation Treatment using Assistive, Adaptive, Supportive or Protective Equipment (ICD-10-PCS; 2018-07-26)
PROC: F07Z8FZ Transfer Training Treatment using Assistive, Adaptive, Supportive or Protective Equipment (ICD-10-PCS; 2018-07-26)
PROC: F08Z1FZ Dressing Techniques Treatment using Assistive, Adaptive, Supportive or Protective Equipment (ICD-10-PCS; 2018-07-26)
PROC: 0T9B70Z Drainage of Bladder with Drainage Device, Via Natural or Artificial Opening (ICD-10-PCS; 2018-07-26)
PROC: F08Z1FZ Dressing Techniques Treatment using Assistive, Adaptive, Supportive or Protective Equipment (ICD-10-PCS; 2018-07-27)
PROC: F08Z2FZ Grooming/Personal Hygiene Treatment using Assistive, Adaptive, Supportive or Protective Equipment (ICD-10-PCS; 2018-07-27)
DX: J44.1 Chronic obstructive pulmonary disease with (acute) exacerbation (principal); I13.0 Hypertensive heart and chronic kidney disease with heart failure and stage 1 through stage 4 chronic kidney disease, or unspecified chronic kidney disease; J44.0 Chronic obstructive pulmonary disease with (acute) lower respiratory infection; J20.9 Acute bronchitis, unspecified; E11.22 Type 2 diabetes mellitus with diabetic chronic kidney disease; N18.3 Chronic kidney disease, stage 3 (moderate); I50.9 Heart failure, unspecified; E11.42 Type 2 diabetes mellitus with diabetic polyneuropathy; I25.10 Atherosclerotic heart disease of native coronary artery without angina pectoris; I08.3 Combined rheumatic disorders of mitral, aortic and tricuspid valves; I25.5 Ischemic cardiomyopathy; F17.200 Nicotine dependence, unspecified, uncomplicated; I48.2 Chronic atrial fibrillation; D50.9 Iron deficiency anemia, unspecified; E03.9 Hypothyroidism, unspecified; E78.5 Hyperlipidemia, unspecified; M48.50XD Collapsed vertebra, not elsewhere classified, site unspecified, subsequent encounter for fracture with routine healing; G89.29 Other chronic pain; R33.9 Retention of urine, unspecified; Z85.3 Personal history of malignant neoplasm of breast; Z90.11 Acquired absence of right breast and nipple; Z79.01 Long term (current) use of anticoagulants; Z95.1 Presence of aortocoronary bypass graft; Z95.2 Presence of prosthetic heart valve; Z95.810 Presence of automatic (implantable) cardiac defibrillator; Z86.73 Personal history of transient ischemic attack (TIA), and cerebral infarction without residual deficits; Z95.5 Presence of coronary angioplasty implant and graft

== ENCOUNTER 2018-09-06 22:36 | Inpatient (IN) | payer MEDICARE, MEDICAID ==
[2018-09-07 00:04] LABS: EOS % 0.8 % (1.5-5.0); GRAN # 4.21 (1.4-6.5); HEMOGLOBIN 9.3 g/dL (12.0-16.0); LYMPH # 0.3 (1.2-3.4); LYMPH % 6.8 % (22.0-35.0); MEAN CELL VOLUME 101.1 fl (80.0-105.0); MEAN CORPUSCULAR HEMOGLOBIN 32.9 pg (25.0-35.0); MEAN CORPUSCULAR HGB CONC 32.5 g/dl (31.0-37.0); MEAN PLATELET VOLUME 10.8 fl (7.0-11.0); MONO # 0.3 (0.1-0.6); MONO % 5.4 % (1.0-6.0); RBC 2.83 10^6/uL (3.5-6.1); RED CELL DISTRIBUTION WIDTH 15.1 % (11.5-14.5); WHITE BLOOD COUNT 4.8 10^3/uL (4.5-11.0)
[2018-09-07 00:06] LABS: INR 1.32; PARTIAL THROMBOPLASTIN TIME 32.3 Seconds (25.1-36.5); PROTHROMBIN TIME 15.1 SECONDS (9.4-12.5)
[2018-09-07 00:08] LABS: ALB/GLOB RATIO 1.2 (1.1-1.8); ALBUMIN 3.5 g/dL (3.0-4.8); CALCIUM 8.4 mg/dL (8.4-10.5)
[2018-09-07 00:18] LABS: TROPONIN I 0.02 ng/mL
--- NOTE | 2018-09-07 00:51 | ED PDOC ---
Arrival/HPI - General Chief Complaint: Trauma Time Seen by Provider: 09/06/18 22:55 Historian: Patient - History of Present Illness Narrative History of Present Illness (Text): 09/07/18 00:39 78yr old female presents today s/p fall. pt states that she took an ambien and got out of bed started walking and fell hitting the head. pt denies loc. pt is c/o left shoulder pain, low back pain. pt denies cp or sob. pt states she has be en feeling dizzy occasionally and unsteady on her feet. pt denies urinary symptoms. pt states she had recent battery change in pace maker and is having increased pain over the pacemaker. pt c/o headache. no vomiting. no other complaints . Past Medical History - Provider Review Nursing Documentation Reviewed: Yes - Travel History Have you recently traveled outside [place] w/in the past 3 mons?: No - Past History Past History: No Previous - Infectious Disease Hx of Infectious Diseases: None - Tetanus Immunization Tetanus Immunization: Unknown - Cardiac Hx Cardiac Disorders: Yes (5 stents) Hx Congestive Heart Failure: Yes Hx Hypertension: Yes Hx Internal Defibrillator: Yes - Pulmonary Hx Chronic Obstructive Pulmonary Disease (COPD): Yes - Neurological HX Cerebrovascular Accident: Yes - HEENT Hx HEENT Disorder: Yes Hx Cataracts: Yes (sx b/l) Other/Comment: eye glasses - Renal Hx Renal Failure: Yes - Endocrine/Metabolic Hx Diabetes Mellitus Type 2: Yes Hx Hypothyroidism: Yes - Hematological/Oncological Hx Blood Disorders: Yes Hx Anemia: Yes (iron deficiency-IRON INFUSIONS) - Integumentary Hx Dermatological Disorder: No - Musculoskeletal/Rheumatological Hx Arthritis: Yes - Gastrointestinal Hx Gastrointestinal Disorders: Yes (GI BLEED) - Genitourinary/Gynecological Hx Genitourinary Disorders: No Hx Reproductive Disorders: No - Psychiatric Hx Psychophysiologic Disorder: Yes (SMOKES 5 CIG A DAY. SMOKED FOR 50 YRS) Hx Anxiety: Yes Hx Depression: Yes Hx Substance Use: No - Surgical History Hx Cardiac Catheterization: Yes (5 stents) Hx Coronary Stent: Yes (5) Hx Open Heart Surgery: Yes Hx Vascular Access Device: Yes (R side chest port) - Anesthesia Hx Anesthesia: No Hx Anesthesia Reactions: No Hx Malignant Hyperthermia: No - Suicidal Assessment Feels Threatened In Home Enviroment: No Family/Social History - Physician Review Nursing Documentation Reviewed: Yes Family/Social History: Unknown Family HX Smoking Status: Light Smoker < 10 Cigarettes Daily Hx Alcohol Use: No Hx Substance Use: No Hx Substance Use Treatment: No Allergies/Home Meds Allergies/Adverse Reactions: Allergies Sulfa (Sulfonamide Antibiotics) Allergy (Mild, Verified 09/06/18 22:48) RASH Home Medications: Home Meds Medication Instructions Recorded Confirmed Metformin HCl [Glucophage] 500 mg PO BID 12/01/15 07/22/18 Zolpidem [Ambien] 10 mg PO HS 12/01/15 07/22/18 Lubiprostone [Amitiza] 24 mcg PO BID 08/26/17 07/22/18 Acetaminophen/Oxycodone Hydr 1 tab PO TID PRN 07/20/18 07/22/18 [Percocet 10/325 mg Tab] Albuterol HFA [Ventolin HFA 90 1 puff IH DAILY PRN 07/20/18 07/22/18 mcg/actuation (8 g)] Atorvastatin [Lipitor] 10 mg PO DIN 07/20/18 07/22/18 Fluticasone/Salmeterol 250/50 1 puff IH Q12 07/20/18 07/22/18 [Advair Diskus 250/50] Morphine [Morphine Immediate 15 mg PO BID 07/20/18 07/22/18 Release Tab] Warfarin [Coumadin] 1 mg PO 1800 07/20/18 07/22/18 Review of Systems - Review of Systems Constitutional: Fatigue. absent: Fevers Eyes: absent: Vision Changes, Photophobia, Eye Pain ENT: absent: Sore Throat, Sinus Congestion Respiratory: absent: SOB, Cough Cardiovascular: absent: Chest Pain, Palpitations Gastrointestinal: absent: Abdominal Pain, Nausea, Vomiting Musculoskeletal: Arthralgias, Back Pain, Neck Pain Skin: absent: Rash, Pruritis Neurological: Headache, Dizziness Psychiatric: absent: Anxiety, Depression Physical Exam Vital Signs Reviewed: Yes Vital Signs Temp Pulse Resp BP Pulse Ox 09/06/18 22:53 98.0 F 106 H 18 142/86 97 Temperature: Afebrile Blood Pressure: Normal Pulse: Tachycardic Respiratory Rate: Normal Appearance: Positive for: Well-Appearing, Non-Toxic, Comfortable Pain Distress: None Mental Status: Positive for: Alert and Oriented X 3 - Systems Exam Head: Present: Laceration (2cm linear laceration noted to posterior scalp). No: Atraumatic Pupils: Present: PERRL Extroacular Muscles: Present: EOMI Conjunctiva: Present: Normal Mouth: Present: Moist Mucous Membranes Pharnyx: Present: Normal Nose (External): Present: Atraumatic Nose (Internal): Present: Normal Inspection Neck: Present: Normal Range of Motion, MIDLINE TENDERNESS, Paraspinal Tenderness, Trachea Midline Respiratory/Chest: Present: Good Air Exchange, Decreased Breath Sounds, Rhonchi, Tender to Palpation (+erythema and tenderness over pacemaker site. ). No: Respiratory Distress, Accessory Muscle Use, Wheezes, Tachypneic Cardiovascular: Present: Irregular Rhythm, Tachycardic Abdomen: No: Tenderness, Distention, Rebound, Guarding Back: Present: Normal Inspection, Midline Tenderness (+ midline lumbar tenderness) Upper Extremity: Present: NORMAL PULSES, Tenderness (+ ttp over left anterior shoulder; limited abduction; sensation and distal pulses intact. ) Lower Extremity: Present: NORMAL PULSES, Normal ROM. No: Tenderness, Swelling, Erythema Neurological: Present: GCS=15, Speech Normal Skin: Present: Warm, Dry, Normal Color Psychiatric: Present: Alert, Oriented x 3 Medical Decision Making ED Course and Treatment: 09/07/18 01:20 78-year-old female presents today with head injury, laceration status post fall. Complaining of dizziness and unsteady on her feet EKG shows atrial fibrillation at 106 bpm with a left dental branch block cxr; + vascular congestion, ? effusion cbc; hcg; 9.3 cmp; wnl trop; 0.[address]; FINDINGS: BRAIN Chronic periventricular and subcortical microvascular disease is seen. VENTRICLES: There is generalized parenchymal atrophy noted as demonstrated by symmetrical dilatation of ventricles and sulci. ORBITS: The orbits are unremarkable. SINUSES AND MASTOIDS: The paranasal sinuses and mastoid air cells are clear. BONES: No fracture. SOFT TISSUES: Unremarkable. MISCELLANEOUS: No acute intracranial pathology. IMPRESSION: 1. There is generalized parenchymal atrophy noted as demonstrated by symmetrical dilatation of ventricles and sulci. 2. Chronic periventricular and subcortical microvascular disease is seen. 3. No acute intracranial pathology. c spine ct; COMMENTS: There is no fracture visualized. The paraspinal soft tissues are unremarkable. There are no lytic or blastic lesions. Straightening of cervical lordosis is seen, suggesting muscular spasm. There is evidence of severe multilevel disk disease, demonstrated by prominent anterior and posterior marginal osteophytosis and endplate sclerosis. Grade 1 anterolisthesis of C4 on C5 is seen. Grade 1 retrolisthesis of C5 on C6 is seen. S/p median sternotomy and CABG. Dual-lead pacemaker is noted in the left chest wall. Large right and small left pleural effusions are seen. IMPRESSION: 1. Multilevel disk pathology. 2. Straightening of cervical lordosis is seen, suggesting muscular spasm. 3. Grade 1 anterolisthesis of C4 on C5. Grade 1 retrolisthesis of C5 on C6. 4. Large right and small left pleural effusions are seen. lspine ct; COMMENTS: Status post kyphoplasty involving L1 vertebral body with an underlying moderate chronic compression fracture. There is no fracture visualized. The paraspinal soft tissues are unremarkable. There are no lytic or blastic lesions. Straightening of lumbar lordosis is seen, suggesting muscular spasm. There is evidence of multilevel disk disease, demonstrated by osteophytosis and endplate sclerosis. Vacuum disc phenomena and severe disc space height loss at L5-S1. Evaluation of individual levels reveals the following: At L4-L5 and L5-S1, broad-based disk protrusion in conjunction with hypertrophic facet disease results in moderate to severe bilateral foraminal narrowing. lateralized to the right is seen, producing mild to moderate right foraminal narrowing. Canal is mildly stenotic. At L3-L4, broad-based disk bulge, results in mild to moderate bilateral foraminal narrowing. Canal is patent. L1-L2 and L2-L3 levels are unremarkable. IMPRESSION: 1. No fracture or spondylolisthesis. 2. Straightening of lumbar lordosis is seen, suggesting muscular spasm. 3. At L4-L5 and L5-S1, broad-based disk protrusion in conjunction with h ypertrophic facet disease results in moderate to severe bilateral foraminal narrowing. lateralized to the right is seen, producing mild to moderate right foraminal narrowing. Canal is mildly stenotic left shoulder xray; no fracture wound irrigated with copious amounts of normal saline using high-pressure irrigation laceration repair; 2 wayne placed. will give a dose of rocephin for possible infection to site of pacemaker. pt reassessment; pt is non toxic well appearing; no distress; stable vitals. resting comfortably. case discussed with dr. mcginnis covering for dr. baljinder; will admit observational status to remote tele. impression; dizziness, fall, head injury, laceration scalp, pleural effusions admit observational status to remote tele. Reassessment Condition: Re-examined, Improved - Lab Interpretations Lab Results: 09/06/18 23:50 09/06/18 23:50 Lab Results 09/06/18 23:50: WBC 4.8 D, RBC 2.83 L, Hgb 9.3 L, Hct 28.6 L, MCV 101.1, MCH 32.9, MCHC 32.5, RDW 15.1 H, Plt Count 122, MPV 10.8, Gran % 87.0 H, Lymph % (Auto) 6.8 L, [place] % (Auto) 5.4, Eos % (Auto) 0.8 L, Baso % (Auto) 0.0, Gran # 4.21, Lymph # (Auto) 0.3 L, [place] # (Auto) 0.3, Eos # (Auto) 0.0, Baso # (Auto) 0.00 09/06/18 23:50: Sodium 137, Potassium 3.6, Chloride 105, Carbon Dioxide 26, Anion Gap 10, BUN 20, Creatinine 1.2, Est GFR ( Amer) 53, Est GFR (Non-Af Amer) 44, Random Glucose 133 H, Calcium 8.4, Total Bilirubin 1.0, AST 26, ALT 25, Alkaline Phosphatase 200 H D, Lactate Dehydrogenase 593, Total Creatine Kinase 63, Troponin I 0.02 D, Total Protein 6.4, Albumin 3.5, Globulin 2.9, Albumin/Globulin Ratio 1.2 09/06/18 23:50: PT 15.1 H, INR 1.32, APTT 32.3 - RAD Interpretation Radiology Orders: 09/06/18 23:09 CERVICAL SPINE W/O CONTRAST [CT] Stat HEAD W/O CONTRAST [CT] Stat 09/06/18 23:42 SHOULDER LEFT [RAD] Stat 09/06/18 23:43 LUMBAR SPINE W/O CONTRAST [CT] Stat 09/07/18 00:28 CHEST PORTABLE [RAD] Stat Procedure: Wound Repair - Procedure Procedure: Wound Repair: posterior scalp laceration - Performed by Performed by: Mid-level Provider - Indications Indication(s):: Laceration - Location Location:: Posterior, Scalp Shape:: Linear Dimensions Length cm: 2cm Depth:: Epidermis - Anesthetic Technique Local/Regional Anesthetic:: Other (NONE) - Debris Debris:: None - Irrigated Irrigated with ml of normal saline: copious amounts of NS using high pressure irrigation - Complexity Complexity:: Simple (one layer) - Wound repair method Sutures:: # (2 wayne placed) - Complications Complications: none - Patient tolerated procedure Patient Tolerated Procedure:: Well Disposition/Present on Arrival - Present on Arrival Any Indicators Present on Arrival: No History of DVT/PE: No History of Uncontrolled Diabetes: No Urinary Catheter: No History of Decub. Ulcer: No History Surgical Site Infection Following: None - Disposition Have Diagnosis and Disposition been Completed?: Yes Diagnosis: Head injury, Dizziness, Scalp laceration, Shoulder pain, Neck pain, Back pain Disposition: HOSPITALIZED Disposition Time: 01:40 Patient Plan: Observation Patient Problems: Current Active Problems Problem Status Onset Back pain Acute Dizziness Acute Head injury Acute Neck pain Acute Scalp laceration Acute Shoulder pain Acute Condition: FAIR Forms: [employer] (Albanian)
[2018-09-07] MEDS ORDERED: TDAP Vaccine 0.5 mL Syr IM ONE (02:07)
[2018-09-07] MEDS ORDERED: cefTRIAXone 1 gm 1 GM/100 ML BAG IVPB STA (02:47)
[2018-09-07 06:37] VITALS: BMI 23.4
--- NOTE | 2018-09-07 08:01 | CARD ---
APPROVED REPORT Date of service: 09/06/2018 EKG Measurement Heart [id number] <Conclusion> Atrial fibrillation with rapid ventricular response Left bundle branch block No change
--- NOTE | 2018-09-07 10:10 | RAD ---
PROCEDURE: Radiographs of the Left Shoulder HISTORY: fall COMPARISON: None available. FINDINGS: BONES: High-riding humeral head may be seen in the setting of chronic rotator cuff injury. No acute displaced fracture. The distal clavicle and underlying ribs appear intact. JOINTS: No acute dislocation. SOFT TISSUES: Soft tissues appear unremarkable. No evidence of radiopaque foreign body. Left-sided pacemaker with leads partially imaged. Median sternotomy wires. Partially imaged cardiomegaly. Dense atherosclerotic calcification present. IMPRESSION: No acute displaced fracture or dislocation evident.If high clinical index of suspicion, cross-sectional imaging may be considered. Otherwise if symptoms persist or if there is continued clinical concern, x-ray follow-up in 7-10 days should be considered. High-riding humeral head may be seen in the setting of chronic rotator cuff injury. Additional findings as above.
--- NOTE | 2018-09-07 10:16 | CT ---
Date of service: 09/07/2018 PROCEDURE: CT HEAD WITHOUT CONTRAST. HISTORY: headache COMPARISON: Noncontrast head CT performed 08/02/16 TECHNIQUE: Axial computed tomography images were obtained through the head/brain without intravenous contrast. Radiation dose: Total exam DLP = 1024.11 mGy-cm. This CT exam was performed using one or more of the following dose reduction techniques: Automated exposure control, adjustment of the mA and/or kV according to patient size, and/or use of iterative reconstruction technique. FINDINGS: HEMORRHAGE: No intracranial hemorrhage. BRAIN: Diffuse atrophy with prominence of the ventricles and sulci noted. No mass effect or edema. Focal regions of encephalomalacia noted within the right posterior parietal lobe as on prior study. Scattered periventricular and subcortical white matter hypodensities, which are nonspecific, but often seen with chronic microvascular ischemic disease. Please note that MRI with diffusion imaging is more sensitive in the detection of acute ischemic event. VENTRICLES: No hydrocephalus. CALVARIUM: Unremarkable. PARANASAL SINUSES: Unremarkable as visualized. No significant inflammatory changes. MASTOID AIR CELLS: Unremarkable as visualized. No inflammatory changes. OTHER FINDINGS: None. IMPRESSION: Generalized atrophy. Nonspecific white matter changes. Chronic encephalomalacia right posterior parietal lobe as on prior imaging. Preliminary impression was provided by [employer].
--- NOTE | 2018-09-07 10:45 | HP ---
DATE OF EXAM: 09/07/2018 HISTORY OF PRESENT ILLNESS: Ms. Ohara is a 78-year-old female admitted to the hospital after she had a fall at home. She tried to get out of the bed and fell hitting her head. Complaining of left shoulder pain, left back pain. She had a pacemaker, battery was changed recently. No pain or tenderness around the pacemaker. She also has history of chronic anemia and received IV iron transfusion in the past. Hemoglobin/hematocrit is decreased but stable right now at 9.3 g/dl. She also has a history of GI bleed in the past, none recent. History of hypothyroidism, currently controlled with current medication, diabetes mellitus type 2, currently controlled with current medication. Also, has anxiety, depression. PAST MEDICAL HISTORY: As per HPI. PAST SURGICAL HISTORY: Cardiac open heart surgery, coronary stent placement, cardiac catheterization. PERSONAL HISTORY: Light smoker, smokes less than 10 cigarettes a day. No history of substance abuse. ALLERGIES: SULFA. HOME MEDICATIONS: Metformin 500 mg p.o. twice daily, Ambien 10 mg p.o. at bedtime, and Amitiza 24 mcg p.o. twice daily, Percocet p.r.n. for pain, albuterol inhalation p.r.n., Advair, Coumadin 1 mg daily, morphine 15 mg p.o. twice daily. PHYSICAL EXAMINATION: GENERAL: Comfortable in bed, in no acute distress. VITAL SIGNS: Temperature 98, heart rate 106, respiratory rate 18 per minute, blood pressure 140/80, oxygen saturation 97% room air. HEENT: Pallor positive. NECK: No lymphadenopathy. She has air entry present and equal bilaterally. No added sounds. CARDIOVASCULAR: S1, S2 normal. No murmur. No gallop. ABDOMEN: Soft, nontender. No hepatosplenomegaly. EXTREMITIES: No rash, no edema. SPINE: Nontender. POTLINE MONITOR: Alert and alert x3. No focal sensory motor deficit. He has a laceration noted on the posterior scalp. It was sutured. CT scan of the head, generalized parenchymal atrophy, chronic periventricular subcortical microvascular disease, no acute pathology. No bleeding. CT spine, multilevel disc pathology and degenerative disc disease and bilateral pleural effusion noted. Lumbar spine, no fracture. Left shoulder x-ray, no fracture. LABORATORY DATA: White count 4.8, hemoglobin 9.3, hematocrit 28.6, platelet count 122,000. Sodium 137, potassium 3.6, BUN 20, creatinine 1.2, glucose 133. ASSESSMENT AND PLAN: 1. Syncope. 2. Fall, lacerated wound on the scalp. 3. Iron-deficiency anemia, chronic. 4. History of gastrointestinal bleed. 5. Hypertension. 6. Pacemaker placement, coronary artery disease. PLAN: She will be admitted to the hospital telemonitoring. Imaging done of the head and the spine and shoulder, no fracture dislocation. Percocet p.r.n. for pain, DuoNeb p.r.n. for bronchospasm, isosorbide 60 mg daily, Synthroid 100 mcg daily, metformin 500 mg p.o. twice daily, Coumadin 1 mg daily, Ambien 10 mg p.o. at bedtime p.r.n. Neurology consultation, Dr. Schwartz requested. Cardiology consultation Dr. Ferrari requested. Bessie Mata MD
--- NOTE | 2018-09-07 12:16 | RAD ---
HISTORY: fall COMPARISON: Chest x-ray performed 07/20/18 TECHNIQUE: Chest, one view. FINDINGS: Examination limited by habitus and hypoinflation. Right IJ approach MediPort with distal tip extending to the expected location of the cavoatrial junction, somewhat obscured by overlying pacer leads. LUNGS: Small right pleural effusion. Bibasilar atelectasis. Small right lower lobe infiltrate not excluded in the proper clinical setting. CARDIOVASCULAR: Left-sided AICD. Median sternotomy wires. Cardiomegaly. Atherosclerotic calcification present. OSSEOUS STRUCTURES: Degenerative changes. VISUALIZED UPPER ABDOMEN: Unremarkable. OTHER FINDINGS: None. IMPRESSION: Right IJ approach MediPort with distal tip extending to the expected location of the cavoatrial junction, somewhat obscured by overlying pacer leads. Cardiomegaly. Small right pleural effusion. Bibasilar atelectasis. Small right lower lobe infiltrate not excluded in the proper clinical setting.
[2018-09-07] MEDS: Oxycodone/Acetaminophen 10/325 mg Tab PO PRN (14:04)
--- NOTE | 2018-09-07 15:19 | CT ---
Date of service: 09/07/2018 CT cervical spine without IV contrast Indication: neck pain Comparison: Noncontrast CT spine CT performed 06/07/16 Technique: Axial computed tomography images were obtained of the cervical spine without the use of intravenous contrast. Coronal and sagittal reformatted images were created and reviewed. This CT exam was performed using 1 or more of the following dose reduction techniques: Automated exposure control, adjustment of the MAA and/or kV according to patient size, and/or use of iterative reconstruction technique. Radiation dose: Total exam DLP = 609.32 mGy-cm. Findings: Straightening of the normal cervical lordosis may be related to muscle spasm or positioning. Curvature of the cervical spine may be positional. Multilevel degenerative changes. There is no evidence of acute fracture.The prevertebral soft tissues and spinolaminar lines appear intact. Grade 1 anterolisthesis of C4 on C5 and C5 on C6. Lateral masses are preserved. The dens tip is intact. There is proper alignment of the lateral masses of C1 with the C2 vertebral body. Included portions of the thyroid gland appear unremarkable. Included portions of lung apices; azygos lobe, variant anatomy. Partially imaged dual lead AICD. Median sternotomy wires. Right IJ approach central venous catheter. Cardiomegaly. Large right and small left pleural effusions. Right apical pleural thickening or fluid. Impression: No evidence of acute fracture. Straightening of the normal cervical lordosis may be related to muscle spasm or positioning. Grade 1 anterolisthesis of C4 on C5 and C5 on C6. Included portions of lung apices; azygos lobe, variant anatomy. Partially imaged dual lead AICD. Median sternotomy wires. Right IJ approach central venous catheter. Cardiomegaly. Large right and small left pleural effusions. Right apical pleural thickening or fluid. Preliminary impression was provided by [employer].
--- NOTE | 2018-09-07 15:57 | CT ---
Date of service: 09/07/2018 CT lumbar spine without IV contrast Indication: fall/ back pain Comparison: Noncontrast lumbar spine CT performed 01/30/18 Technique: Noncontrast axial images of the lumbar spine were provided. Sagittal and coronal reformatted images were generated and reviewed. This CT exam was performed using 1 or more of the following dose reduction techniques: Automated exposure control, adjustment of the MAA and/or kV according to patient size, and/or use of iterative reconstruction technique. Total exam DLP: 1380.7 MGy-cm Findings: L1 compression fracture deformity with evidence of vertebroplasty. Vertebral body heights appear otherwise within normal limits. Mild degenerative changes including small osteophyte formation. L5-S1 intervertebral disc space narrowing and vacuum disc phenomenon. Small posterior disc bulges likely at L2-L3, L4-L5, and L5-S1. No acute displaced fracture or subluxation evident. Paraspinal soft tissues appear unremarkable. Limited visualization of the intrathoracic, intra-abdominal, and intrapelvic contents: Dense atherosclerotic calcifications of the aorta. Partially imaged small right pleural effusion. Bilateral adrenal gland hypertrophy. Atrophic right kidney with high density focus, possibly hemorrhagic or proteinaceous cyst and renal scarring. Impression: Multilevel degenerative changes. L1 compression fracture deformity has progressed since CT performed 01/30/18 with interval vertebroplasty. No acute fracture or subluxation identified. Limited visualization of the intrathoracic, intra-abdominal, and intrapelvic contents: Dense atherosclerotic calcifications of the aorta. Partially imaged small right pleural effusion. Bilateral adrenal gland hypertrophy. Atrophic right kidney with high density focus, possibly hemorrhagic or proteinaceous cyst and renal scarring. Preliminary impression was provided by [employer].
--- NOTE | 2018-09-07 21:38 | CON ---
DATE: 09/07/2018 The patient is seen in 376, bed #2. CHIEF COMPLAINT: Left chest wall pacemaker site pain and confusion x1 day. HISTORY OF PRESENT ILLNESS: This is a 78-year-old female with a history of coronary artery disease, cardiac arrhythmias, congestive heart failure, myocardial infarction, has had a pacemaker in the past, also has a Port-A-Cath and had cardiac cath in the past with a stent. The patient had a pacemaker replacement, she states 3 days ago, and the patient was found to be more confused and admitted with erythema at the pacemaker site, and there have been no fevers reported. No chills reported. No chest pain other than the pain at the insertion site of the pacemaker. No diarrhea or constipation. No cough or shortness of breath. REVIEW OF SYSTEMS: Fourteen-point review of systems is performed. PAST MEDICAL HISTORY: Significant for angiodysplasia of the GI tract, hypercoagulable state, cardiac arrhythmia, GI bleed, coronary artery disease, myocardial infarction, congestive heart failure, anxiety, depression. PAST SURGICAL HISTORY: Significant for Port-A-Cath. The patient has a right-sided Port-A-Cath and pacemaker and a cardiac catheterization with stent placement. ALLERGIES: THE PATIENT IS ALLERGIC TO SULFA. MEDICATIONS: Medications at home are reviewed. PHYSICAL EXAMINATION: GENERAL: She is in bed, appearing chronically ill, weak. VITAL SIGNS: A temperature of 97, blood pressure is 120/70, respiratory rate of 20, and heart rate of 82. HEENT: Examination of HEENT is unremarkable. NECK: Supple. CHEST: Lungs have decreased breath sounds. Examination of the new pacemaker site, there is mild erythema, it is tender to touch. No discharge. CARDIOVASCULAR: Heart exam reveals normal S1, S2. ABDOMEN: Soft, nontender. No rebound or guarding. LABORATORY EXAMINATION: Revealed a white count of 4.8, hemoglobin of 9. Chemistries are BUN of 20, creatinine of 1.2, alk phos is 200. Microbiology is noted. ASSESSMENT AND PLAN: This is a 78-year-old female with angiodysplasia of gastrointestinal tract, hypercoagulable state, cardiac arrhythmia, coronary artery disease, myocardial infarction, congestive heart failure, pacemaker, anxiety, depression, now admitted with change of mental status. She is confused. She knows who she is and where she is. She does not know what year it is, and the nursing staff states that the patient's neighbors found her to be confused with #1 is a left pacemaker site cellulitis, status post new pacemaker placement in a patient with adrenal insufficiency. We will treat with Teflaro pending blood cultures and the clinical response, and we will follow closely with you. Diego Kelley MD
--- NOTE | 2018-09-07 23:01 | CON ---
DATE OF CONSULTATION: 09/07/2018 REASON FOR CONSULTATION: Fall episode. HISTORY OF PRESENT ILLNESS: The patient is a 78-year-old female, who has a history of coronary artery bypass surgery and mechanical valve replacement about 10 years ago according to the patient with history of cardiomyopathy and ICD, biventricular pacemaker placement with recent replacement of the battery at [facility], and the patient presented because of a fall episode. The patient stated that she got up around midnight to go to the bathroom and she fell and hit her head. The patient was helped by her live-in friend who works as an EMS. The patient denies any chest pain. SOCIAL HISTORY: Nonsmoker. Nondrinker. MEDICATIONS: Ambien 10 mg h.s. daily, ceftaroline 400 mg intravenously every 12 hours, Coumadin 1 mg daily, metformin 500 mg twice a day, Imdur 60 mg once a day, Lipitor 10 mg once a day, Synthroid 100 mcg once a day, Percocet 1 tablet t.i.d. REVIEW OF SYSTEMS: No recent nausea or vomiting. No recent diarrhea. No history of substernal chest pain. The patient does not report any recent discharge from her fibrillator. PHYSICAL EXAMINATION: GENERAL: The patient is an elderly female who does not appear to be in any distress. VITAL SIGNS: Blood pressure 120/76, heart rate 78, temperature 97.6, respirations 20. HEENT: Pale conjunctivae with ecchymosis involving the back of the head. The patient stated that she had scalp stitches recently. NECK: No JVD. CHEST: Diminished breath sounds at bases. HEART: S1 and S2 regular. ABDOMEN: Soft. EXTREMITIES: Trace edema. LABORATORY DATA: Hemoglobin and hematocrit 9.3 and 28.6. White count and platelet count are within normal limits. SMA-7 is within normal limits except for glucose of 133. Troponin 0.02. INR is 1.32. Head CT scan revealed generalized atrophy, nonspecific white matter changes, chronic encephalomalacia, right posterior parietal lobe. Echocardiographic study in 01/2018 revealed ejection fraction of 40% to 45%, mild aortic insufficiency, moderate valvular aortic stenosis, mechanical mitral valve functioning normally, AICD lead in the right ventricle noted. EKG revealed atrial fibrillation with rapid ventricular response at the rate of 106, left bundle-branch block. Shoulder x-ray, no acute displaced or dislocation evident. Chest x-ray, right IJ approach, MediPort was dissected extending to the expected location, cardiomegaly, small right pleural effusion and bibasilar atelectasis, small left lower lobe infiltrate not excluded. Cervical spine x-ray, impression, no evidence of acute fracture. ASSESSMENT: 1. Syncopal episode with a fall and lacerated scalp wound. 2. Chronic atrial fibrillation. 3. Cardiomyopathy, status post ICD placement. 4. Atrial fibrillation. 5. Hypertension. 6. History of coronary artery disease, status post coronary artery bypass surgery as well as mechanical mitral valve replacement. RECOMMENDATIONS: Continue Coumadin at 1 mg daily, ceftaroline 400 mg intravenously every 12 hours, Imdur 60 mg once a day, Synthroid 100 mcg once a day. Consider initiating therapeutic subcutaneous Lovenox therapy, as there is no neurological contraindication until a therapeutic INR is achieved. Oswald Albert MD
[2018-09-08] MEDS: Levothyroxine 100 MCG TAB PO SCH (06:10)
--- NOTE | 2018-09-08 07:49 | CON ---
DATE: 09/07/2018 HISTORY OF PRESENT ILLNESS: This is a 78 year old white female with a past medical history, had a pacemaker and patient was trying to get out of the bed, fell and hit her head, had 2 stitches in the ER in the back of the head. CAT scan of the head was done, which did not show any bleed. PAST MEDICAL HISTORY: Hypothyroidism, diabetes, cardiac open heart surgery, and stent. ALLERGIES: SULFA. PHYSICAL EXAMINATION HEENT: Normocephalic. Patient had a trauma to the back of the head with 2 stitches. NECK: Supple. NEUROLOGIC: Alert, awake, oriented x3. No aphasia. Cranial nerves II to XII were tested. Pupils reactive. EOM intact. Visual field full. No facial asymmetry. Tongue midline. Motor examination: Moves all the extremities spontaneously. Deep tendon reflexes 1+. Plantars downgoing. There is also swelling of both the feet that is possibly due to coronary artery disease, CHF. ASSESSMENT AND PLAN: Continue present management. We will follow up. Marc Schwartz MD
[2018-09-08] MEDS ORDERED: cefTRIAXone 1 gm 1 GM/100 ML BAG IVPB SCH (10:00)
--- NOTE | 2018-09-08 10:17 | CP.PCM.PN ---
<Feliz Moran - Last Filed: 09/08/18 16:49> Subjective - Date & Time of Evaluation Date of Evaluation: 09/08/18 Time of Evaluation: 07:30 - Subjective Subjective: Progress Note for Dr. Lincoln Service Patient seen and examined at bedside. Initially this AM, no complaints, and no reported acute overnight events. However, later this AM, called by nursing with report patient complaining of shortness of breath, asking for her home Atrovent. At time of exam, patient placed on Duoneb treatment, reported breathing felt improved, but then complained of chest pressure sensation. Stat CXR, EKG, and Trop were obtained; CXR appeared unchanged, and EKG did not show any acute ST- segment changes, but trop returned positive at 0.25 (was 0.02 two days prior). Cardio notified, who recommended continuing with therapeutic lovenox for AC and will take patient to landscape and yardwork laborer tomorrow for assessment. Trops trended q8. Objective - Vital Signs/Intake and Output Vital Signs (last 24 hours): Temp Pulse Resp BP Pulse Ox 97.3 F L 85 20 133/73 98 09/08/18 08:51 09/08/18 08:51 09/08/18 08:51 09/08/18 08:51 09/08/18 08:51 Intake and Output: 09/08/18 09/08/18 06:59 18:59 Intake Total 0 Balance 0 - Medications Medications: Current Medications Atorvastatin Calcium (Lipitor) 10 mg PO DIN [facility] Last Admin: 09/07/18 17:59 Dose: 10 mg Ceftaroline Fosamil 400 mg/ (Sodium Chloride) 100 mls @ 100 mls/hr IVPB Q12 [facility]; Protocol Stop: 09/16/18 13:16 Last Admin: 09/08/18 09:47 Dose: 100 mls/hr Isosorbide Mononitrate (Imdur) 60 mg PO 0600 [facility] Last Admin: 09/08/18 06:09 Dose: 60 mg Levothyroxine Sodium (Synthroid) 100 mcg PO 0600 [facility] Last Admin: 09/08/18 06:10 Dose: 100 mcg Metformin HCl (Glucophage) 500 mg PO BID [facility] Last Admin: 09/08/18 09:46 Dose: 500 mg Non-Formulary Medication (Lubiprostone [Amitiza]) 24 mcg PO BID [facility] Last Admin: 09/08/18 09:47 Dose: Not Given Oxycodone/Acetaminophen (Percocet 10/325 Mg Tab) 1 tab PO TID PRN PRN Reason: Pain, moderate (4-7) Last Admin: 09/07/18 14:04 Dose: 1 tab Warfarin Sodium (Coumadin) 1 mg PO 1800 [facility]; Protocol Last Admin: 09/07/18 18:01 Dose: 1 mg Zolpidem Tartrate (Ambien) 10 mg PO HS [facility]; Protocol Last Admin: 09/07/18 21:40 Dose: 10 mg - Labs Labs: 09/06/18 23:50 09/06/18 23:50 PT 15.1 SECONDS (9.4-12.5) H 09/06/18 23:50 INR 1.32 09/06/18 23:50 APTT 32.3 Seconds (25.1-36.5) 09/06/18 23:50 - Constitutional Appears: Non-toxic, Other (Initially in no acute distress, then distress 2/2 shortness of breath resolved after breathing tx) - Head Exam Head Exam: ATRAUMATIC, NORMAL INSPECTION, NORMOCEPHALIC - Eye Exam Eye Exam: EOMI, Normal appearance. absent: Conjunctival injection, Scleral icterus Pupil Exam: absent: Irregular, Unequal - ENT Exam ENT Exam: Mucous Membranes Moist - Neck Exam Neck Exam: Full ROM. absent: Lymphadenopathy - Respiratory Exam Respiratory Exam: Clear to Ausculation Bilateral, NORMAL BREATHING PATTERN. absent: Accessory Muscle Use, Chest Wall Tenderness, Decreased Breath Sounds, Rales, Rhonchi, Wheezes Additional comments: No appreciable wet breath sounds on initial exam or when called with reported shortness of breath, normal breathing pattern both times patient examined by typewriter assembler Left chest wall erythema without blisters or bullae appreciated around site of incision for pacer placement - Cardiovascular Exam Cardiovascular Exam: REGULAR RHYTHM, RRR, +S1, +S2. absent: Bradycardia, Tachycardia, Irregular Rhythm, JVD, +S4 Additional comments: no chest pain, but sensation of chest pressure (non-reproducible) at time of repeat examination - GI/Abdominal Exam GI & Abdominal Exam: Soft, Normal Bowel Sounds. absent: Distended, Firm, Rigid, Tenderness, Diminished Bowel Sounds, Hyperactive Bowel Sounds, Hypoactive Bowel Sounds - Extremities Exam Extremities Exam: Full ROM, Normal Capillary Refill, Normal Inspection. absent: Pedal Edema, Tenderness - Neurological Exam Additional comments: awake and alert, moving all extremities spontaneously, following commands appropriately, sitting up in bed without issue - Psychiatric Exam Psychiatric exam: Normal Affect, Normal Mood - Skin Additional comments: except as documented in chest wall section, dry/intact/warm/normal color Assessment and Plan - Assessment and Plan (Free Text) Assessment: This is a 78 yo F with PMH of CAD s/p stenting and PPM, s/p CABG and mechanical mitral valve, DMII, HTN, Hypothyroid, COPD, GI bleed, anemia, and anxiety/depression who presented to [facility] initially s/p fall with head trauma but no LOC. She was found today to have elevated trop without ST elevations on EKG concerning for NSTEMI. Plan: 1) Fall with head trauma -ddx: syncopal/near-syncopal event, medication-induced (ambien) vs arrhythmia vs 2/2 sepsis -CT head negative for bleed -Neuro following, appreciate their recs -Cardio following, appreciate their recs; restart anticoagulation given no signs of bleed on head imaging 2) Chest wall cellulitis -on Teflaro as per ID -blood cx negative at 24 hrs -ID following, appreciate their recs 3) Elevated trop without ST-segment changes -Trop 0.25 after reported episode chest pressure and shortness of breath -Cardio aware, recs continuing therapeutic AC (lovenox dosed daily in setting of renal insufficiency), pending Cardiac cath tomorrow 4) Chronic issues -HTN: continue imdur -CAD with stents/CABG: continue ASA/Plavix and Lipitor -DM: hold metformin prior to cardiac cath -Hypothyroid: continue synthroid Dispo: Pending cardiac cath for NSTEMI Ppx: Lovenox covers for DVT, Protonix for GI Reviewed and discussed with attending, Dr. Lincoln <Joaquín Lincoln - Last Filed: 09/08/18 21:32> Objective - Vital Signs/Intake and Output Vital Signs (last 24 hours): Temp Pulse Resp BP Pulse Ox 97.6 F 83 19 117/74 96 09/08/18 16:29 09/08/18 16:29 09/08/18 16:29 09/08/18 16:29 09/08/18 16:29 Intake and Output: 09/08/18 09/09/18 18:59 06:59 Intake Total 340 Balance 340 - Medications Medications: Current Medications Atorvastatin Calcium (Lipitor) 10 mg PO DIN [facility] Last Admin: 09/08/18 17:09 Dose: 10 mg Clopidogrel Bisulfate (Plavix) 75 mg PO DAILY [facility] Enoxaparin Sodium (Lovenox) 50 mg SC DAILY [facility]; Protocol Stop: 09/08/18 23:59 Last Admin: 09/08/18 12:44 Dose: 50 mg Ceftaroline Fosamil 400 mg/ (Sodium Chloride) 100 mls @ 100 mls/hr IVPB Q12 [facility]; Protocol Stop: 09/16/18 13:16 Last Admin: 09/08/18 21:26 Dose: 100 mls/hr Isosorbide Mononitrate (Imdur) 60 mg PO 0600 [facility] Last Admin: 09/08/18 06:09 Dose: 60 mg Levothyroxine Sodium (Synthroid) 100 mcg PO 0600 [facility] Last Admin: 09/08/18 06:10 Dose: 100 mcg Metformin HCl (Glucophage) 500 mg PO BID [facility] Non-Formulary Medication (Lubiprostone [Amitiza]) 24 mcg PO BID [facility] Last Admin: 09/08/18 17:09 Dose: Not Given Oxycodone/Acetaminophen (Percocet 10/325 Mg Tab) 1 tab PO TID PRN PRN Reason: Pain, moderate (4-7) Last Admin: 09/08/18 17:14 Dose: 1 tab Pantoprazole Sodium (Protonix Ec Tab) 40 mg PO [facility] Last Admin: 09/08/18 21:25 Dose: 40 mg Zolpidem Tartrate (Ambien) 10 mg PO HS [facility]; Protocol Last Admin: 09/07/18 21:40 Dose: 10 mg - Labs Labs: 09/08/18 18:30 09/08/18 18:30 PT 14.2 SECONDS (9.4-12.5) H 09/08/18 12:50 INR 1.23 09/08/18 12:50 APTT 34.5 Seconds (25.1-36.5) 09/08/18 12:50 Assessment and Plan - Assessment and Plan (Free Text) Plan: Pt seen and examined. I have reviewed the note of the medical reception and agree with it. I have discussed the assessment and plan with the resident. I have reviewed the patient's labs and medications. Pt with fall. Neuro evaluated pt. Pt with NSTEMI and will get a cath in the am. Cardio is following the pt. HTN is controlled on medications. DM-2, will hold Metformin. Hypothyroidism is being treated with Synthroid.
[2018-09-08] MEDS ORDERED: Albuterol-Ipratrop 3 mg / 0.5 (3 ml) UD IH STA (10:54)
--- NOTE | 2018-09-08 12:05 | RAD ---
Date of service: 09/08/2018 HISTORY: acute shortness of breath, wet sounds COMPARISON: 09/07/2018 FINDINGS: LUNGS: Patchy infiltrate at the right lung base PLEURA: Small bilateral pleural effusions CARDIOVASCULAR: Aortic calcification Moderate cardiomegaly no pulmonary vascular congestion. OSSEOUS STRUCTURES: No significant abnormalities. VISUALIZED UPPER ABDOMEN: Normal. OTHER FINDINGS: Dual lead pacemaker. IMPRESSION: Patchy infiltrate at the right lung base. Small bilateral pleural effusions
[2018-09-08] MEDS ORDERED: Enoxaparin 60 mg Syringe SC SCH (12:30)
[2018-09-08 13:10] LABS: INR 1.23; PARTIAL THROMBOPLASTIN TIME 34.5 Seconds (25.1-36.5); PROTHROMBIN TIME 14.2 SECONDS (9.4-12.5)
--- NOTE | 2018-09-08 13:30 | PN ---
DATE: 09/08/2018 REASON FOR CONSULTATION AND FOLLOWUP: Coronary artery disease status post fall, admitted after a fall. SUBJECTIVE: Patient denies any chest pain, shortness of breath or any palpitation. OBJECTIVE: GENERAL: Not in apparent distress. VITAL SIGNS: Temperature afebrile, heart rate 85, blood pressure 133/73. HEENT: PERRLA. Extraocular muscles intact. NECK: Supple. No carotid bruits or thyromegaly. CHEST: Clear to auscultation. HEART: S1 and S2 regular. ABDOMEN: Soft. EXTREMITIES: Clubbing and cyanosis negative. LABORATORY DATA: WBC 4.8, hemoglobin 9.3, hematocrit 28.6, platelet count 122,000. Chemistry shows sodium 130, potassium 3.6, chloride 105, carbon dioxide 26, anion gap of 10, BUN 20, creatinine 1.2. Troponin remains 0.02, negative. IMPRESSION: A 78-year-old female with past medical history significant for chronic atrial fibrillation, cardioversion, ejection fraction of 25-30 percent, recent [id number] aortic stenosis, mitral regurgitation status post AVR mechanical, moderate tricuspid regurgitation, history of coronary artery disease, coronary artery bypass graft, history of automatic implantable cardioverter-defibrillator in the past, history of recent generator change a week ago at [facility], admitted after a fall. Denies any chest pain, shortness of breath or any palpitation. Most recent echo dated 01/31/2018 showed ejection fraction of 45 percent, mild aortic regurgitation, moderate valvular aortic stenosis mechanical, mitral prosthesis functioning normal, trace mitral regurgitation, [id number] tricuspid regurgitation, RV systolic pressure 42, mild pulmonary hypertension, ejection fraction 40 to 45 percent. History of prior TIA and CVA. History of neuropathy. History of mastectomy for breast carcinoma, hypertension, hyperlipidemia on anticoagulation, Coumadin. Admitted with 5.6 for supratherapeutic INR, today it is 1.32. History of coronary artery disease, coronary artery bypass graft as mentioned, history of mechanical mitral valve prosthesis. RECOMMENDATION: Since the INR is subtherapeutic, we will give Lovenox as a bridge for atrial fibrillation and mechanical mitral prosthesis. Gave 2 mg of Coumadin today and we will continue until the INR gets therapeutic. So, we will give 50 mg subcutaneous every 24 because 40 mL an hour and increase Coumadin to 2 mg. We will give Lovenox as a bridge to prevent thromboembolic complications. We will follow with you. Thank you Dr. Mata for providing us the opportunity in taking care of the patient. Cyril Naranjo MD
--- NOTE | 2018-09-08 14:05 | CP.PCM.PN ---
Subjective - Date & Time of Evaluation Date of Evaluation: 09/08/18 Time of Evaluation: 09:45 - Subjective Subjective: Less pain in the chest wall, no fevers. Objective - Vital Signs/Intake and Output Vital Signs (last 24 hours): Temp Pulse Resp BP Pulse Ox 97.3 F L 85 20 133/73 98 09/08/18 08:51 09/08/18 08:51 09/08/18 08:51 09/08/18 08:51 09/08/18 08:51 Intake and Output: 09/08/18 09/08/18 06:59 18:59 Intake Total 0 Balance 0 - Medications Medications: Current Medications Atorvastatin Calcium (Lipitor) 10 mg PO DIN [facility] Last Admin: 09/07/18 17:59 Dose: 10 mg Clopidogrel Bisulfate (Plavix) 75 mg PO DAILY [facility] Enoxaparin Sodium (Lovenox) 50 mg SC DAILY [facility]; Protocol Stop: 09/08/18 23:59 Last Admin: 09/08/18 12:44 Dose: 50 mg Ceftaroline Fosamil 400 mg/ (Sodium Chloride) 100 mls @ 100 mls/hr IVPB Q12 [facility]; Protocol Stop: 09/16/18 13:16 Last Admin: 09/08/18 09:47 Dose: 100 mls/hr Isosorbide Mononitrate (Imdur) 60 mg PO 0600 [facility] Last Admin: 09/08/18 06:09 Dose: 60 mg Levothyroxine Sodium (Synthroid) 100 mcg PO 0600 [facility] Last Admin: 09/08/18 06:10 Dose: 100 mcg Metformin HCl (Glucophage) 500 mg PO BID [facility] Last Admin: 09/08/18 09:46 Dose: 500 mg Non-Formulary Medication (Lubiprostone [Amitiza]) 24 mcg PO BID [facility] Last Admin: 09/08/18 09:47 Dose: Not Given Oxycodone/Acetaminophen (Percocet 10/325 Mg Tab) 1 tab PO TID PRN PRN Reason: Pain, moderate (4-7) Last Admin: 09/07/18 14:04 Dose: 1 tab Zolpidem Tartrate (Ambien) 10 mg PO HS [facility]; Protocol Last Admin: 09/07/18 21:40 Dose: 10 mg - Labs Labs: 09/06/18 23:50 09/06/18 23:50 PT 14.2 SECONDS (9.4-12.5) H 09/08/18 12:50 INR 1.23 09/08/18 12:50 APTT 34.5 Seconds (25.1-36.5) 09/08/18 12:50 - Constitutional Appears: Chronically Ill - Head Exam Head Exam: NORMAL INSPECTION - Neck Exam Neck Exam: absent: Meningismus - Respiratory Exam Respiratory Exam: Decreased Breath Sounds Additional comments: decreased erythema over the left chest wall area - Cardiovascular Exam Cardiovascular Exam: +S1, +S2 - GI/Abdominal Exam GI & Abdominal Exam: Soft. absent: Tenderness Assessment and Plan - Assessment and Plan (Free Text) Plan: Assessment Left chest wall pacemaker site cellulitis, slowly improving history of GI angiodysplasia cardiac arrhythmia S/P pacemaker placement CAD chronci CHF anxiety depression Plan continue Teflaro day 2 and will continue to monitor clinical response
[2018-09-08] MEDS: Oxycodone/Acetaminophen 10/325 mg Tab PO PRN (17:14)
--- NOTE | 2018-09-08 17:47 | PN ---
DATE: 09/08/2018 REASON FOR EVALUATION: Chest pain, abnormal troponin. After I saw the patient at 7:30, the patient around 10:30 complained of some shortness of breath and seen by resident since the troponin was 0.25 and now the patient denies any chest pain now. INR yesterday was supratherapeutic and today INR was 1.23 started on Lovenox because of subtherapeutic INR and we will keep NPO and start load with aspirin, Plavix and possible cardiac catheterization tomorrow. Further recommendation depending on hospital course. We will follow with you. We will hold Coumadin for now. Cyril Naranjo MD
[2018-09-08 18:47] LABS: ALB/GLOB RATIO 1.2 (1.1-1.8); ALBUMIN 3.2 g/dL (3.0-4.8); CALCIUM 8.6 mg/dL (8.4-10.5)
[2018-09-08 18:49] LABS: BASO # 0.02 K/mm3 (0.0-2.0); BASO % 0.6 % (0.0-3.0); EOS # 0.1 (0.0-0.7); EOS % 3.2 % (1.5-5.0); GRAN # 2.32 (1.4-6.5); GRAN % 74.2 % (50.0-68.0); HEMOGLOBIN 8.6 g/dL (12.0-16.0); LYMPH # 0.5 (1.2-3.4); MEAN CELL VOLUME 103.1 fl (80.0-105.0); MEAN CORPUSCULAR HEMOGLOBIN 32.8 pg (25.0-35.0); MEAN CORPUSCULAR HGB CONC 31.9 g/dl (31.0-37.0); MEAN PLATELET VOLUME 10.4 fl (7.0-11.0); MONO # 0.2 (0.1-0.6); RBC 2.62 10^6/uL (3.5-6.1); RED CELL DISTRIBUTION WIDTH 15.4 % (11.5-14.5); WHITE BLOOD COUNT 3.1 10^3/uL (4.5-11.0)
--- NOTE | 2018-09-08 19:21 | CARD ---
APPROVED REPORT Date of service: 09/08/2018 EKG Measurement Heart [id number] <Conclusion> Bi-Ventricular paced rhythm, Underlying rhythm is A Fib Nonspecific intraventricular block Abnormal ECG
--- NOTE | 2018-09-08 19:24 | CARD ---
APPROVED REPORT Date of service: 09/08/2018 EKG Measurement Heart [id number] <Conclusion> Bi-Ventricular paced rhythm, underlying rhythm is A Fib. Abnormal ECG
[2018-09-08 20:15] LABS: TROPONIN I 0.24 ng/mL
[2018-09-08] MEDS: Pantoprazole 40 mg EC Tab PO SCH (21:25)
[2018-09-09] MEDS ORDERED: Albuterol-Ipratrop 3 mg / 0.5 (3 ml) UD IH STA (04:57)
[2018-09-09 06:37] LABS: INR 1.11; PROTHROMBIN TIME 12.8 SECONDS (9.4-12.5)
[2018-09-09 06:45] LABS: CALCIUM 8.5 mg/dL (8.4-10.5)
[2018-09-09 06:47] LABS: IRON 39 ug/dL (45-180)
[2018-09-09] MEDS: Levothyroxine 100 MCG TAB PO SCH (06:48)
[2018-09-09] MEDS ORDERED: Lidocaine 2% Inj (20ml) ONE (06:51)
[2018-09-09] MEDS ORDERED: Phenylephrine 10 mg/ml Inj ONE (06:51)
[2018-09-09] MEDS ORDERED: Iodixanol 320 MG/ML 200 ML BOTTLE IV ONE (06:52)
[2018-09-09] MEDS ORDERED: Iodixanol 320 MG/ML 100 ML BOTTLE IV ONE (06:52)
[2018-09-09] MEDS ORDERED: Iohexol 350mgl/ml 50 ML ONE (06:52)
[2018-09-09 06:56] LABS: % IRON SATURATION 20 % (20-55); TOTAL IRON BINDING CAPACITY 198 ug/dL (265-497)
[2018-09-09 06:59] LABS: TROPONIN I 0.18 ng/mL
[2018-09-09 07:03] LABS: EOS # 0.1 (0.0-0.7); EOS % 2.5 % (1.5-5.0); GRAN # 2.58 (1.4-6.5); GRAN % 79.3 % (50.0-68.0); HEMOGLOBIN 9.1 g/dL (12.0-16.0); LYMPH # 0.4 (1.2-3.4); LYMPH % 11.1 % (22.0-35.0); MEAN CELL VOLUME 103.9 fl (80.0-105.0); MEAN CORPUSCULAR HEMOGLOBIN 32.2 pg (25.0-35.0); MEAN PLATELET VOLUME 10.6 fl (7.0-11.0); MONO # 0.2 (0.1-0.6); MONO % 7.1 % (1.0-6.0); RBC 2.83 10^6/uL (3.5-6.1); RED CELL DISTRIBUTION WIDTH 15.6 % (11.5-14.5); WHITE BLOOD COUNT 3.3 10^3/uL (4.5-11.0)
--- NOTE | 2018-09-09 07:19 | CP.PCM.PN ---
<Feliz Moran - Last Filed: 09/09/18 18:39> Subjective - Date & Time of Evaluation Date of Evaluation: 09/09/18 Time of Evaluation: 07:10 - Subjective Subjective: Progress Note for Dr. Lincoln Service Patient seen and examined at bedside. No acute events reported overnight. Only complaint is shortness of breath with ambulation to bathroom (refuses to use bedside commode as per nursing). Pending cardiac cath today. Objective - Vital Signs/Intake and Output Vital Signs (last 24 hours): Temp Pulse Resp BP Pulse Ox 97.4 F L 83 20 130/80 100 09/09/18 05:58 09/09/18 05:58 09/09/18 05:58 09/09/18 05:58 09/09/18 05:58 Intake and Output: 09/09/18 09/09/18 06:59 18:59 Intake Total 340 Balance 340 - Medications Medications: Current Medications Atorvastatin Calcium (Lipitor) 10 mg PO DIN [facility] Last Admin: 09/08/18 17:09 Dose: 10 mg Clopidogrel Bisulfate (Plavix) 75 mg PO DAILY [facility] Last Admin: 09/09/18 06:48 Dose: 75 mg Ceftaroline Fosamil 400 mg/ (Sodium Chloride) 100 mls @ 100 mls/hr IVPB Q12 [facility]; Protocol Stop: 09/16/18 13:16 Last Admin: 09/08/18 21:26 Dose: 100 mls/hr Isosorbide Mononitrate (Imdur) 60 mg PO 0600 [facility] Last Admin: 09/09/18 06:48 Dose: 60 mg Levothyroxine Sodium (Synthroid) 100 mcg PO 0600 [facility] Last Admin: 09/09/18 06:48 Dose: 100 mcg Non-Formulary Medication (Lubiprostone [Amitiza]) 24 mcg PO BID [facility] Last Admin: 09/08/18 17:09 Dose: Not Given Oxycodone/Acetaminophen (Percocet 10/325 Mg Tab) 1 tab PO TID PRN PRN Reason: Pain, moderate (4-7) Last Admin: 09/08/18 17:14 Dose: 1 tab Pantoprazole Sodium (Protonix Ec Tab) 40 mg PO [facility] Last Admin: 09/08/18 21:25 Dose: 40 mg Zolpidem Tartrate (Ambien) 10 mg PO [facility]; Protocol Last Admin: 09/07/18 21:40 Dose: 10 mg - Labs Labs: 09/09/18 06:00 09/09/18 06:00 PT 12.8 SECONDS (9.4-12.5) H 09/09/18 06:00 INR 1.11 09/09/18 06:00 APTT 34.5 Seconds (25.1-36.5) 09/08/18 12:50 - Additional Findings Additional findings: - Constitutional Appears: Non-toxic, No acute distress - Head Exam Head Exam: ATRAUMATIC, NORMAL INSPECTION, NORMOCEPHALIC - Eye Exam Eye Exam: EOMI, Normal appearance. absent: Conjunctival injection, Scleral icterus Pupil Exam: absent: Irregular, Unequal - ENT Exam ENT Exam: Mucous Membranes Moist - Neck Exam Neck Exam: Full ROM. absent: Lymphadenopathy - Respiratory Exam Respiratory Exam: Clear to Ausculation Bilateral, NORMAL BREATHING PATTERN. absent: Accessory Muscle Use, Chest Wall Tenderness, Decreased Breath Sounds, Rales, Rhonchi, Wheezes Additional comments: Left chest wall erythema without blisters or bullae appreciated around site of incision for pacer placement - Cardiovascular Exam Cardiovascular Exam: REGULAR RHYTHM, RRR, +S1, +S2. absent: Bradycardia, Tachycardia, Irregular Rhythm, JVD, +S4 - GI/Abdominal Exam GI & Abdominal Exam: Soft, Normal Bowel Sounds. absent: Distended, Firm, Rigid, Tenderness, Diminished Bowel Sounds, Hyperactive Bowel Sounds, Hypoactive Bowel Sounds - Extremities Exam Extremities Exam: Full ROM, Normal Capillary Refill, Normal Inspection. absent: Pedal Edema, Tenderness - Neurological Exam awake and alert, moving all extremities spontaneously, following commands appropriately - Psychiatric Exam Psychiatric exam: Normal Affect, Normal Mood - Skin except as documented in chest wall section, dry/intact/warm/normal color Assessment and Plan - Assessment and Plan (Free Text) Assessment: This is a 78 yo F with PMH of CAD s/p stenting and PPM, s/p CABG and mechanical mitral valve, DMII, HTN, Hypothyroid, COPD, GI bleed, anemia, and anxiety/depression who presented to [facility] initially s/p fall with head trauma but no LOC. She was found today to have elevated trop without ST elevations on EKG concerning for NSTEMI. Pending cardiac cath this AM. Plan: 1) Fall with head trauma -ddx: syncopal/near-syncopal event, medication-induced (ambien) vs arrhythmia vs 2/2 sepsis -CT head negative for bleed -Neuro following, appreciate their recs -Cardio following, appreciate their recs; restart anticoagulation given no signs of bleed on head imaging 2) NSTEMI -Trop 0.25 after reported episode chest pressure and shortness of breath yesterday, downtrended after (0.24 -> 0.24 -> 0.18) -Pending Cath today -On therapeutic lovenox dosing 3) Chest wall cellulitis -on Teflaro as per ID -blood cx negative at 48 hrs -ID following, appreciate their recs 4) Chronic issues -HTN: continue imdur -CAD with stents/CABG: continue ASA/Plavix and Lipitor -DM: hold metformin prior to cardiac cath -Hypothyroid: continue synthroid Dispo: Pending cardiac cath for NSTEMI Ppx: Lovenox covers for DVT, Protonix for GI Reviewed and discussed with attending, Dr. Lincoln <Joaquín Lincoln S - Last Filed: 09/09/18 19:58> Objective - Vital Signs/Intake and Output Vital Signs (last 24 hours): Temp Pulse Resp BP Pulse Ox 97 F L 80 20 107/57 L 100 09/09/18 17:43 09/09/18 18:06 09/09/18 17:43 09/09/18 17:43 09/09/18 08:31 Intake and Output: 09/09/18 09/10/18 18:59 06:59 Intake Total 1060 Balance 1060 - Medications Medications: Current Medications Albuterol/Ipratropium (Duoneb 3 Mg/0.5 Mg (3 Ml) Ud) 3 ml IH [id number] PRN PRN Reason: Shortness of Breath Atorvastatin Calcium (Lipitor) 10 mg PO DIN [facility] Last Admin: 09/09/18 17:27 Dose: 10 mg Carvedilol (Coreg) 3.125 mg PO BID [facility] Last Admin: 09/09/18 17:27 Dose: 3.125 mg Clopidogrel Bisulfate (Plavix) 75 mg PO DAILY [facility] Last Admin: 09/09/18 14:15 Dose: Not Given Digoxin (Digoxin) 0.125 mg PO 1400 [facility] Last Admin: 09/09/18 13:57 Dose: 0.125 mg Furosemide (Lasix) 40 mg PO DAILY [facility] Ceftaroline Fosamil 400 mg/ (Sodium Chloride) 100 mls @ 100 mls/hr IVPB Q12 [facility]; Protocol Stop: 09/16/18 13:16 Last Admin: 09/09/18 13:58 Dose: 100 mls/hr Isosorbide Mononitrate (Imdur) 60 mg PO 0600 [facility] Last Admin: 09/09/18 06:48 Dose: 60 mg Levothyroxine Sodium (Synthroid) 100 mcg PO 0600 [facility] Last Admin: 09/09/18 06:48 Dose: 100 mcg Lisinopril (Zestril) 2.5 mg PO DAILY [facility] Non-Formulary Medication (Lubiprostone [Amitiza]) 24 mcg PO BID [facility] Last Admin: 09/09/18 17:29 Dose: Not Given Oxycodone/Acetaminophen (Percocet 10/325 Mg Tab) 1 tab PO TID PRN PRN Reason: Pain, moderate (4-7) Last Admin: 09/08/18 17:14 Dose: 1 tab Pantoprazole Sodium (Protonix Ec Tab) 40 mg PO HS [facility] Last Admin: 09/08/18 21:25 Dose: 40 mg Spironolactone (Aldactone) 25 mg PO DAILY [facility] Warfarin Sodium (Coumadin) 1 mg PO 1800 [facility]; Protocol Last Admin: 09/09/18 17:28 Dose: 1 mg Zolpidem Tartrate (Ambien) 10 mg PO HS [facility]; Protocol Last Admin: 09/07/18 21:40 Dose: 10 mg - Labs Labs: 09/09/18 06:00 09/09/18 06:00 PT 12.8 SECONDS (9.4-12.5) H 09/09/18 06:00 INR 1.11 09/09/18 06:00 APTT 34.5 Seconds (25.1-36.5) 09/08/18 12:50 Assessment and Plan - Assessment and Plan (Free Text) Plan: Pt seen and examined. I have reviewed the note of the medical record assistant and agree with it. I have discussed the assessment and plan with the resident. I have reviewed the patient's labs and medications. Pt with NSTEMI and had cath done today. I spoke to Dr Naranjo about the case. She was on IVF during the procedure. She has DM-2 and is on ISS with Insulin coverage. HTN is controlled. She had a fall. She is asking to go home after work up is done. Synthroid for hypothyroidism.
[2018-09-09] MEDS ORDERED: Midazolam 2 MG/2 ML VIAL ONE (07:55)
[2018-09-09] MEDS ORDERED: Eptifibatide 20 mg/10mL Inj IVP ONE (08:44)
[2018-09-09] MEDS ORDERED: Sodium Chloride 0.9% 1,000 ML IV SCH (10:15)
--- NOTE | 2018-09-09 12:12 | CPOSTOP ---
CARDIOVASCULAR LAB POSTPROCEDURE NOTE DATE: 09/09/2018 PHYSICIAN: Dr. Edson Naranjo. COMMERCIAL BAKER HELPER: Audrey library media technician. PRE-PROCEDURE DIAGNOSES: Unstable angina and non-ST segment myocardial infarction, history of coronary artery disease, history of coronary artery bypass graft. TYPE OF ANESTHESIA: Moderate conscious sedation, total 2 mg of Versed and 100 of fentanyl given. PRE-PROCEDURE DIAGNOSES: Unstable angina, coronary artery disease, coronary artery bypass graft and cardiomyopathy, ischemic. PROCEDURE PERFORMED: 1. Left heart catheterization. 2. Left internal mammary artery injection. 3. injection. 4. Percutaneous transluminal coronary angioplasty of chronic total occlusion of right coronary artery. FINDINGS: 100% RCA occluded. FINAL DIAGNOSIS: Multivessel coronary artery disease, occluded graft. VASCULAR ACCESS SITE: Left femoral artery. CLOSURE DEVICE: Manual compression. TOTAL RADIATION DOSE: 89276.4 milligray unit. TOTAL FLUORO TIME: 39.1 minute. Cyril Naranjo MD
--- NOTE | 2018-09-09 13:33 | PN ---
DATE: 09/09/2018 REASON FOR CONSULTATION: Coronary artery disease, unstable angina, admitted after a fall. SUBJECTIVE: Patient denies any chest pain, shortness of breath or any palpitation. OBJECTIVE: GENERAL: Not in apparent distress. VITAL SIGNS: Temperature afebrile, heart rate is 85, blood pressure 133/77. HEENT: PERRLA, intact. NECK: Supple. No carotid bruits or thyromegaly. CHEST: Clear to auscultation. HEART: S1, S2 regular. ABDOMEN: Soft. EXTREMITIES: Clubbing and cyanosis negative. LABORATORY DATA: Blood workup as follows: WBC 3.3, hemoglobin 9.2, hematocrit 29.4 and platelet count 123,000. INR 1.11. Sodium 140, potassium 4.2, chloride 108, carbon dioxide 36, anion gap of 11, BUN of 21 and creatinine of 1.1. Troponin is 0.18. IMPRESSION: A 78-year-old female with past medical history significant for coronary artery disease, status post coronary artery bypass graft, status post mechanical mitral valve prosthesis, status post automatic implantable cardioverter-defibrillator, status post recent degenerative change, history of severe peripheral artery disease status right femoral popliteal bypass and left crossover femoral bypass. Yesterday, patient was admitted after a fall; later on at around 10 o'clock, patient developed chest pain, troponin positive, non-ST segment myocardial infarction. Today, patient underwent cardiac catheterization that revealed left main disease, ostial circ disease, ostia totally occluded, all occluded. Decreased left ventricular function. Subsequently, patient underwent very complex percutaneous transluminal coronary angioplasty of totally occluded right coronary artery with two bare mental stents, proximal and distal and multiple plain balloon angioplasties for in-stent stenosis of right coronary artery. Bare mental stent was done because patient had a history gastrointestinal bleed multiple times. Patient cannot continue dual antiplatelet therapy and Coumadin. Patient needs Coumadin because of mechanical prosthetic mitral valve. So, plan is to continue Plavix for 4 weeks. If she remains stable, we will possibly discharge her home tomorrow. We will start typical heart failure therapy including digoxin, Lasix once a day 40, spironolactone 25 mg daily, Coreg 3.125 mg daily and lisinopril 2.5 mg daily as blood pressure is tolerated. Also, we will start Coumadin 1 mg, followup PT/INR tomorrow. Continue Plavix for [address] Lincoln for providing us the opportunity in taking care of the patient, Franchesca Ohaar. Cyril Naranjo MD cc: Dr. Lincoln
[2018-09-09] MEDS ORDERED: Digoxin 125 mcg (0.125 mg) Tab PO SCH (14:00)
[2018-09-09 14:12] VITALS: PULSE 81
[2018-09-09 17:44] VITALS: RESP 20
[2018-09-09 18:09] VITALS: PULSE 80
--- NOTE | 2018-09-09 19:33 | CARD ---
APPROVED REPORT Date of service: 09/09/2018 EKG Measurement Heart [id number] <Conclusion> BiVentricular paced rhythm Abnormal ECG
[2018-09-09] MEDS: Albuterol-Ipratrop 3 mg / 0.5 (3 ml) UD IH PRN (20:06)
--- NOTE | 2018-09-09 20:21 | CARD ---
APPROVED REPORT Date of service: 09/09/2018 Procedure(s) performed: Left Heart Catheterization ALMEIDA Angiogram SVG Angiogram PTCA with Stenting of Proximal and Distal RCA with BMS PTCA with Balloon Angioplasty of Mid RCA for Instent Restenosis, HISTORY The patient is a 78 year-old female with a history of : previous AK (> 7 days), previous CHF, previous CVA , diabetes mellitus with oral treatment , chronic lung disease, previous diagnostic cath, tobacco history() : The patient is a current smoker , previous PCI (The PCI date was ), hypertension , previous CABG (The CABG date was ), dyslipidemia , previous valve surgery (The previous valve surgery date was ), cerebrovascular disease , Hx of CABG and [facility] MVR approximately 20 years ago, Multiple PTCAs, Ischemic CMP, S/p AICD, S/p AICD Gen change one weeka ago, Hx of PAD S/p Right Fem pop and left Fem-Fem Cross over admitted after mechanical Fall, during hospitalization experienced Cp/ Sob and Positive troponin, which was negative on Admission (NSTEMI), HX of Multiple GI Bleed requiring RBCs transfusion in recent Past.Hx of Ch A fib on Coumadin for [facility] Mitral valve, Hx of Multiple TIA/ CVA.. INDICATION The indication(s) include : non-STEMI . CASE TECHNIQUE The patient was brought urgently to the Cardiac Catheterization Laboratory in a fasting state and was prepped and draped in a sterile manner. The right femoral groin was infiltrated with 2% Lidocaine subcutaneous anesthesia. A 6 Fr x 11 cm Maria Del Carmen sheath was inserted into the right femoral artery without difficulty. Coronary angiography was performed using coronary diagnostic catheters. The left coronary system was accessed and visualized with a Diagnostic , 5F JL 4 CATH DXT 100 CM catheter. The right coronary system was accessed and visualized with a Diagnostic ,5F JR 4 CATH DXT 100 CM catheter. The left ventricle was accessed and visualized with a 5F JL 4 CATH DXT 100 CM catheter. The left internal mammary artery was accessed and visualized with a Diagnostic ,5 Fr IM catheter. The saphenous vein graft was accessed and visualized with a Diagnostic , 5F JR 4 CATH DXT 100 CM catheter. The saphenous vein graft was accessed and visualized with a Diagnostic ,6 Fr MPA 1 catheter. Left ventricular/Aortic Valve gradient assessed on pullback. Left ventriculogram was performed in FERNANDEZ projection. Hemostasis was obtained with manual pressure following sheath removal without any complications. The patient tolerated the procedure well and there were no complications associated with the procedure. Vessel Analysis The patient's coronary anatomy is right dominant. The left main coronary artery is a large size vessel with diffuse calcification noted throughout this vessel and with significant stenosis. There is a 30-40% stenosis in the proximal segment. and also Distal 30-40 % stenosis The left main bifurcates to the left anterior descending and circumflex. The left anterior descending artery is a medium size vessel with diffuse calcification noted throughout this vessel and without significant stenosis. There is a 30-40% stenosis in the mid segment. multiple stanoses The first diagonal branch is a small size vessel with diffuse calcification noted throughout this vessel and without significant stenosis. The second diagonal branch is a small size vessel with diffuse calcification noted throughout this vessel and without significant stenosis. The third diagonal branch is a small size vessel with diffuse calcification noted throughout this vessel and without significant stenosis. The circumflex artery is a medium size vessel with diffuse calcification noted throughout this vessel and with significant stenosis. There is a 80% stenosis in the ostial segment. Multiple Stenoses in Proximal to Mid segments with 80-90% stenoses and very tortous vessel The first obtuse marginal branch is a medium size vessel with diffuse calcification noted throughout this vessel and without significant stenosis. Very tortous vessel The right coronary artery is a medium size vessel with diffuse calcification noted throughout this vessel and with significant stenosis. There is a 100% stenosis in the proximal segment. RCA has Instent restenosis and very well collateralized from LAD and CX. The left internal mammary artery to the Free to chest wall not used. The saphenous vein graft to the mid circumflex artery segment Occluded . The saphenous vein graft to the distal right coronary artery Occluded . Left Ventricle The left ventricle is enlared in size with Severely decreased contractility. Ischemic cardiomyopathy. The left ventricular ejection fraction is estimated to be 25%. The left ventricular end diastolic pressure is 20-21 mmHg. There was no gradient across the aortic valve upon pullback. PCI Technique Lesion Anticoagulation was achieved with Heparin and integrellin two bolluses only . Percutaneous coronary intervention was performed on the mid right coronary artery. The lesion stenosis prior to intervention was 100% with ROSA 0 flow. A 6 Fr 3DRC Guide Catheter was used to engage the ostium. A Luge 182 Interventional Guidewire was used to cross the lesion. BALLOON DILATION A Balloon catheter 1.5 x 10 mm Sprinter RX was inserted and inflated up to 6.00atm for 12seconds. after crossing HUMANITIES PROFESSOR of instent restenosis, upsizes to multiple balloon from 1.5/10 ,2.12,2.5/15 and 2.75/15at 18-20 atmospheres Final angiography reveals 0 % stenosis with ROSA 3 flow. PCI Technique Lesion 2 Percutaneous Coronary Intervention was performed on the Dstal right coronary artery. The lesion stenosis prior to intervention was 100% with ROSA 0 flow. A 6 Fr 3DRC Guide Catheter was used to engage the ostium. BALLOON DILATION A Balloon catheter 2.0 x 12 mm Sprinter RX was inserted and inflated up to 9.00atm for 30seconds. STENT DEPLOYMENT A bare metal stent 2.5 x 15 mm Mini Vision BMS was inserted and inflated up to 14.00atm for 23seconds. POST STENT DEPLOYMENT BALLOON DILATION A Balloon catheter 2.5 x 15 mm Sprinter RX was inserted and inflated up to 14.00atm for 23seconds. Final angiography reveals 0 % stenosis with ROSA 3 flow. PCI Technique Lesion 3 Percutaneous Coronary Intervention was performed on the proximal right coronary artery. The lesion stenosis prior to intervention was 100% with ROSA 0 flow. A 6 Fr 3DRC Guide Catheter was used to engage the ostium. BALLOON DILATION A Balloon catheter 2.5 x 15 mm Sprinter RX was inserted and inflated up to 12atm for 20seconds. STENT DEPLOYMENT A bare metal stent 2.75 x 15 mm Vision BMS was inserted and inflated up to 1420atm for seconds. Final angiography reveals 0 % stenosis with ROSA 3 flow. Conclusion [place] triple vessel Disease Occluded grafts decreased LV Fx. EF-25%,EDP_20 mm of Hg. Hx of Mech MVR and a Fib requiring Coumadin Hx of multiple GI Bleed, requiring Multiple PRBCS Can not continue Antiplateltes Therapy in addition to coumadin for extended period of time. Successful PTCA of HUMANITIES PROFESSOR RCA done with placement of Two BMS Proximal and Distal, and POBA of Mid RCA done. Recommendations Plavix and Coumadin for four weeks, followed by baby Asa and coumadin. CC; Gomez Ng/ David / Vega
[2018-09-09] MEDS: Pantoprazole 40 mg EC Tab PO SCH (22:32)
--- NOTE | 2018-09-10 03:11 | PN ---
DATE: 09/09/2018 SUBJECTIVE: The patient is seen in bed, in no acute distress, nontoxic. PHYSICAL EXAMINATION: VITAL SIGNS: Temperature is 97, blood pressure is 107/50 and respiratory rate of 18. HEENT: Unremarkable. NECK: Supple. LUNGS: Decreased breath sounds. HEART: Normal S1 and S2. ABDOMEN: Soft and nontender. LABORATORY DATA: Reveals a white count of 3.3. Hemoglobin is noted. Chemistries are reviewed. Creatinine is 1.1. Microbiology is noted. The blood cultures no growth. ASSESSMENT AND PLAN: A 78-year-old female seen earlier this morning with left chest wall pacemaker site cellulitis, improving; history of angiodysplasia; cardiac arrhythmias with pacemaker; coronary artery disease; chronic congestive heart failure; anxiety and depression. Day #3 of Teflaro cultures are negative, and we will follow clinically. The wound appears to be improving and review of the medications reveal that the Teflaro is still for cardiac catheterization today. We will follow with you. Diego Kelley MD
[2018-09-10] MEDS: Levothyroxine 100 MCG TAB PO SCH (06:19)
[2018-09-10 07:03] LABS: INR 1.24; PROTHROMBIN TIME 14.3 SECONDS (9.4-12.5)
[2018-09-10 07:07] VITALS: O2SAT 96
[2018-09-10 07:14] LABS: BASO # 0.01 K/mm3 (0.0-2.0); BASO % 0.4 % (0.0-3.0); EOS # 0.1 (0.0-0.7); EOS % 3.4 % (1.5-5.0); GRAN # 1.96 (1.4-6.5); GRAN % 74.5 % (50.0-68.0); HEMOGLOBIN 8.2 g/dL (12.0-16.0); LYMPH # 0.4 (1.2-3.4); LYMPH % 13.7 % (22.0-35.0); MEAN CORPUSCULAR HEMOGLOBIN 32.3 pg (25.0-35.0); MEAN CORPUSCULAR HGB CONC 31.7 g/dl (31.0-37.0); MEAN PLATELET VOLUME 10.4 fl (7.0-11.0); MONO # 0.2 (0.1-0.6); RBC 2.54 10^6/uL (3.5-6.1); RED CELL DISTRIBUTION WIDTH 15.3 % (11.5-14.5); WHITE BLOOD COUNT 2.6 10^3/uL (4.5-11.0)
[2018-09-10 07:47] LABS: ALB/GLOB RATIO 1.1 (1.1-1.8); ALBUMIN 2.9 g/dL (3.0-4.8); CALCIUM 8.7 mg/dL (8.4-10.5)
[2018-09-10 09:36] VITALS: BP 115/68
[2018-09-10 10:19] VITALS: TEMP 97.5
--- NOTE | 2018-09-10 11:15 | CP.PCM.DIS ---
Provider - Provider Date of Admission: 09/08/18 22:00 Attending physician: Joaquín Lincoln MD Primary care physician: Dr. Oliveros Consults: Cardio: Jose A Neuro: Lana ID: [email or web address] Time Spent in preparation of Discharge (in minutes): 45 Diagnosis - Discharge Diagnosis (1) NSTEMI (non-ST elevated myocardial infarction) Status: Acute Priority: High (2) GEORGE (acute kidney injury) Status: Resolved Priority: Medium (3) CHF (congestive heart failure) Status: Chronic Priority: Medium (4) COPD (chronic obstructive pulmonary disease) Status: Chronic Priority: Medium Hospital Course - Lab Results Lab Results: Micro Results 09/08/18 05:15 Blood-Venous Blood Culture - Preliminary NO GROWTH AFTER 48 HOURS 09/07/18 01:34 Blood Blood Culture - Preliminary NO GROWTH AFTER 3 DAYS 09/07/18 00:34 Blood Blood Culture - Preliminary NO GROWTH AFTER 3 DAYS Most Recent Lab Values WBC 2.6 10^3/uL (4.5-11.0) L D 09/10/18 06:35 RBC 2.54 10^6/uL (3.5-6.1) L 09/10/18 06:35 Hgb 8.2 g/dL (12.0-16.0) L 09/10/18 06:35 Hct 25.9 % (36.0-48.0) L 09/10/18 06:35 MCV 102.0 fl (80.0-105.0) 09/10/18 06:35 MCH 32.3 pg (25.0-35.0) 09/10/18 06:35 MCHC 31.7 g/dl (31.0-37.0) 09/10/18 06:35 RDW 15.3 % (11.5-14.5) H 09/10/18 06:35 Plt Count 125 10^3/uL (120.0-450.0) 09/10/18 06:35 MPV 10.4 fl (7.0-11.0) 09/10/18 06:35 Gran % 74.5 % (50.0-68.0) H 09/10/18 06:35 Lymph % (Auto) 13.7 % (22.0-35.0) L 09/10/18 06:35 Camas % (Auto) 8.0 % (1.0-6.0) H 09/10/18 06:35 Eos % (Auto) 3.4 % (1.5-5.0) 09/10/18 06:35 Baso % (Auto) 0.4 % (0.0-3.0) 09/10/18 06:35 Gran # 1.96 (1.4-6.5) 09/10/18 06:35 Lymph # (Auto) 0.4 (1.2-3.4) L 09/10/18 06:35 Camas # (Auto) 0.2 (0.1-0.6) 09/10/18 06:35 Eos # (Auto) 0.1 (0.0-0.7) 09/10/18 06:35 Baso # (Auto) 0.01 K/mm3 (0.0-2.0) 09/10/18 06:35 PT 14.3 SECONDS (9.4-12.5) H 09/10/18 06:35 INR 1.24 09/10/18 06:35 APTT 34.5 Seconds (25.1-36.5) 09/08/18 12:50 Sodium 139 mmol/L (132-148) 09/10/18 06:35 Potassium 3.8 mmol/L (3.6-5.0) 09/10/18 06:35 Chloride 101 mmol/L (98-107) 09/10/18 06:35 Carbon Dioxide 34 mmol/L (21-33) H 09/10/18 06:35 Anion Gap 7 (10-20) L 09/10/18 06:35 BUN 18 mg/dL (7-21) 09/10/18 06:35 Creatinine 1.1 mg/dl (0.7-1.2) 09/10/18 06:35 Est GFR ( Amer) 58 09/10/18 06:35 Est GFR (Non-Af Amer) 48 09/10/18 06:35 POC Glucose (mg/dL) 77 mg/dL (65-110) 09/10/18 07:23 Random Glucose 84 mg/dL (70-110) 09/10/18 06:35 Calcium 8.7 mg/dL (8.4-10.5) 09/10/18 06:35 Phosphorus 2.7 mg/dL (2.5-4.5) 09/10/18 06:35 Magnesium 1.4 mg/dL (1.7-2.2) L 09/10/18 06:35 Iron 39 ug/dL (45-180) L 09/09/18 06:00 TIBC 198 ug/dL (265-497) L 09/09/18 06:00 % Saturation 20 % (20-55) 09/09/18 06:00 Ferritin 735.0 ng/mL 09/09/18 06:00 Total Bilirubin 0.9 mg/dL (0.2-1.3) 09/10/18 06:35 AST 18 U/L (14-36) 09/10/18 06:35 ALT 21 U/L (7-56) 09/10/18 06:35 Alkaline Phosphatase 134 U/L (38-126) H 09/10/18 06:35 Lactate Dehydrogenase 568 U/L (333-699) 09/09/18 06:00 Total Creatine Kinase 35 U/L (35-230) 09/09/18 06:00 Troponin I 0.18 ng/mL H* D 09/09/18 06:00 Total Protein 5.6 g/dL (5.8-8.3) L 09/10/18 06:35 Albumin 2.9 g/dL (3.0-4.8) L 09/10/18 06:35 Globulin 2.7 gm/dL 09/10/18 06:35 Albumin/Globulin Ratio 1.1 (1.1-1.8) 09/10/18 06:35 - Hospital Course Hospital Course: This is a 78 yo F with PMH of CAD s/p stenting and PPM, s/p CABG and mechanical mitral valve, DMII, HTN, Hypothyroid, COPD, GI bleed, anemia, and anxiety/depression who presented to [facility] [place] initially s/p fall with head trauma but no LOC. While inpatient, she experienced an episode of chest pain/pressure and shortness of breath, and was found to have an elevated trop without ST-changes on EKG, concerning for NSTEMI. She was found to have extensive disease throughout her entire graft, with re-vascularization and bare-metal stenting of her [place] RCA. She was also found to have likely cellulitis around the incision site for her PPM insertion. While here, she was also seen by Cardio, ID, and Neuro. As per Neuro, no acute neurological issue. As per ID, patient was cleared for discharge on Doxycycline and Augmentin; scripts were called in to her preferred pharmacy ([email or web address]). As per Cardio, continue coumadin for mitral valve prophylaxis, and plavix for 4 weeks given bare metal stents, and follow up with Dr. Ferrari in 4 weeks. These instructions were relayed to the patient, as well as instructions to follow up with her PMD within 1 week, and to resume all prior home medications as prescribed. She expressed understanding and agreement with these instructions. She was then discharged to home. Reviewed and discussed with attending, Dr. Lincoln. Discharge Exam - Additional Findings Additional findings: - Constitutional Appears: Non-toxic, No acute distress - Head Exam Head Exam: ATRAUMATIC, NORMAL INSPECTION, NORMOCEPHALIC - Eye Exam Eye Exam: EOMI, Normal appearance. absent: Conjunctival injection, Scleral icterus Pupil Exam: absent: Irregular, Unequal - ENT Exam ENT Exam: Mucous Membranes Moist - Neck Exam Neck Exam: Full ROM. absent: Lymphadenopathy - Respiratory Exam Respiratory Exam: Clear to Ausculation Bilateral, NORMAL BREATHING PATTERN. absent: Accessory Muscle Use, Chest Wall Tenderness, Decreased Breath Sounds, Rales, Rhonchi, Wheezes Additional comments: Left chest wall erythema without blisters or bullae appreciated around site of incision for pacer placement - Cardiovascular Exam Cardiovascular Exam: REGULAR RHYTHM, RRR, +S1, +S2. absent: Bradycardia, Tachycardia, Irregular Rhythm, JVD, +S4 - GI/Abdominal Exam GI & Abdominal Exam: Soft, Normal Bowel Sounds. absent: Distended, Firm, Rigid, Tenderness, Diminished Bowel Sounds, Hyperactive Bowel Sounds, Hypoactive Bowel Sounds - Extremities Exam Extremities Exam: Full ROM, Normal Capillary Refill, Normal Inspection. absent: Pedal Edema, Tenderness - Neurological Exam awake and alert, moving all extremities spontaneously, following commands appropriately - Psychiatric Exam Psychiatric exam: Normal Affect, Normal Mood - Skin except as documented in chest wall section, dry/intact/warm/normal color Discharge Plan - Discharge Medications Prescriptions: Amoxicillin/Clavulanate [Augmentin 875 MG-125 MG] 1 tab PO BID #20 tab Clopidogrel [Plavix] 75 mg PO DAILY #30 tab Doxycycline Hyclate 100 mg PO BID #20 capsule - Follow Up Plan Condition: FAIR Disposition: HOME/ ROUTINE Instructions: Coronary Heart Disease (DC), Minor Head Injury (DC), Dizziness, Nonvertigo, (DC) Additional Instructions: Follow up with your primary doctor in 1-2 weeks. Take all medications as ordered. If you experience any reoccurring or worsening of symptoms return to the emergency department.
--- NOTE | 2018-09-10 12:01 | CARD ---
APPROVED REPORT Date of service: 09/10/2018 EKG Measurement Heart [id number] <Conclusion> BiVentricular paced rhythm Abnormal ECG
[2018-09-10] MEDS: Albuterol-Ipratrop 3 mg / 0.5 (3 ml) UD IH PRN (13:31)
--- NOTE | 2018-09-10 13:55 | CP.PCM.CON ---
History of Present Illness - History of Present Illness History of Present Illness: Teodoro Vicente Internal Medicine Resident- Consult Note Subjective: CC: Fall, anemia HPI: Patient is a 78 year old female with a past medical history of of CAD s/p stenting and PPM, s/p CABG and mechanical mitral valve, DMII, HTN, Hypothyroid, COPD, GI bleed, anemia, and anxiety/depression who was admitted for evaluation and treatment of fall. Heme/onc was consulted for management of anemia. Patient found to have NSTEMI during hospital stay. Cardiac cath revealed 100% RCA occlusion. Percutaneous transluminal coronary angioplasty of RCA was performed. Patient seen and examined at bedside. Offers no new complaints at this time. Denies fever, chills, chest pain, SOB, abdominal pain, nausea, vomiting, diarr hea, constipation, and urinary symptoms. 12 Point ROS negative except as indicated in HPI PMH: CAD s/p CABG, A.fib (on coumadin), AICD, angiodysplasia of colon, GI bleed, hx of multiple blood transfusions, HTN, HLD, CVA, DM-II, peripheral neuropathy, COPD, mechanical mitral valve, compression fracture on chronic pain medicine, CKD IIIA, Ischemic cardiomyopathy s/p pacer/AICD, hypothyroidism , breast ca PSH: CABG, AICD/pacer, mitral Mechanical valve placement, femoral stents? as per patient, bilateral neck surgery- but not sure what kind Allergies: Sulfa Social history: Smokes 1 cigg per day x >50yrs, Denies EtOH or drug use. Lives alone and has a health aid. Walks with cane Family history: Dad- from heart problems, Mom- from heart problems Physical Examination: - Constitutional Appears: Non-toxic, No acute distress - Head Exam Head Exam: ATRAUMATIC, NORMAL INSPECTION, NORMOCEPHALIC - Eye Exam Eye Exam: EOMI, Normal appearance. absent: Conjunctival injection, Scleral icterus - ENT Exam ENT Exam: Mucous Membranes Moist - Neck Exam Neck Exam: Full ROM. absent: Lymphadenopathy - Respiratory Exam Respiratory Exam: Clear to Ausculation Bilateral, NORMAL BREATHING PATTERN. absent: Accessory Muscle Use, Chest Wall Tenderness, Decreased Breath Sounds, Rales, Rhonchi, Wheezes Additional comments: Left chest wall erythema without blisters or bullae appreciated around site of incision for pacer placement - Cardiovascular Exam Cardiovascular Exam: REGULAR RHYTHM, RRR, +S1, +S2. absent: Bradycardia, Tachycardia, Irregular Rhythm, JVD, +S4 - GI/Abdominal Exam GI & Abdominal Exam: Soft, Normal Bowel Sounds. absent: Distended, Firm, Rigid, Tenderness, Diminished Bowel Sounds, Hyperactive Bowel Sounds, Hypoactive Bowel Sounds - Extremities Exam Extremities Exam: Full ROM, Normal Capillary Refill, Normal Inspection. absent: Pedal Edema, Tenderness - Neurological Exam awake and alert, orientated x 3, moving all extremities spontaneously, following commands appropriately - Psychiatric Exam Psychiatric exam: Normal Affect, Normal Mood - Skin except as documented in chest wall section, dry/intact/warm/normal color Assessment and Plan: Patient is a 78 year old female with a past mediaal history of of CAD s/p stenting and PPM, s/p CABG and mechanical mitral valve, DMII, HTN, Hypothyroid, COPD, GI bleed, anemia, and anxiety/depression who was admitted for evaluation and treatment of fall with head trauma. Heme/onc was consulted for management of anemia. Anemia - normocytic - Hgb reviewed, trended, appreciated, ~8.2 - tentative transfusions, iron infusions and procrit pending outpatient trend Patient seen, case discussed with, and plan approved by attending physician, Dr. Newman. Past Patient History - Infectious Disease Hx of Infectious Diseases: None - Tetanus Immunizations Tetanus Immunization: Unknown - Past Social History Smoking Status: Light Smoker < 10 Cigarettes Daily - CARDIAC Hx Cardiac Disorders: Yes (5 stents) Hx Congestive Heart Failure: Yes Hx Hypercholesterolemia: Yes Hx Hypertension: Yes Hx Internal Defibrillator: Yes Hx Pacemaker: Yes - PULMONARY Hx Respiratory Disorders: Yes Hx Asthma: Yes Hx Bronchitis: Yes Hx Chronic Obstructive Pulmonary Disease (COPD): Yes Hx Pneumonia: Yes - NEUROLOGICAL Hx Neurological Disorder: Yes HX Cerebrovascular Accident: Yes Hx Dementia: Yes Hx Dizziness: Yes - HEENT Hx HEENT Problems: Yes Hx Cataracts: Yes (b/l) Other/Comment: eye glasses - RENAL Hx Chronic Kidney Disease: No Hx Renal Failure: No (denied) - ENDOCRINE/METABOLIC Hx Endocrine Disorders: Yes Hx Diabetes Mellitus Type 2: Yes Hx Hypothyroidism: Yes - HEMATOLOGICAL/ONCOLOGICAL Hx Blood Disorders: Yes Hx Anemia: Yes (iron deficiency-IRON INFUSIONS) - INTEGUMENTARY Hx Dermatological Problems: No - MUSCULOSKELETAL/RHEUMATOLOGICAL Hx Musculoskeletal Disorders: Yes Hx Arthritis: Yes Hx Back Pain: Yes Hx Falls: Yes Hx Herniated Disk: Yes - GASTROINTESTINAL Hx Gastrointestinal Disorders: Yes (GI BLEED) Hx Crohn's Disease: Yes Hx Pancreatitis: Yes - GENITOURINARY/GYNECOLOGICAL Hx Genitourinary Disorders: No - PSYCHIATRIC Hx Psychophysiologic Disorder: Yes (SMOKES 5 CIG A DAY. SMOKED FOR 50 YRS) Hx Anxiety: Yes Hx Depression: Yes Hx Substance Use: No - SURGICAL HISTORY Hx Surgeries: Yes - ANESTHESIA Hx Anesthesia: No Hx Anesthesia Reactions: No Hx Malignant Hyperthermia: No Meds Home Medications: Home Medication List Medication Instructions Recorded Confirmed Type Clopidogrel [Plavix] 75 mg PO DAILY #30 tab 09/10/18 Rx Allergies/Adverse Reactions: Allergies Allergy/AdvReac Type Severity Reaction Status Date / Time Sulfa (Sulfonamide Allergy Mild RASH Verified 09/06/18 22:48 Antibiotics) - Medications Medications: Current Medications Albuterol/Ipratropium (Duoneb 3 Mg/0.5 Mg (3 Ml) Ud) 3 ml IH [id number] PRN PRN Reason: Shortness of Breath Last Admin: 09/10/18 13:31 Dose: 3 ml Atorvastatin Calcium (Lipitor) 10 mg PO DIN [facility] Last Admin: 09/09/18 17:27 Dose: 10 mg Carvedilol (Coreg) 3.125 mg PO BID [facility] Last Admin: 09/10/18 09:28 Dose: 3.125 mg Clopidogrel Bisulfate (Plavix) 75 mg PO DAILY [facility] Last Admin: 09/10/18 09:29 Dose: 75 mg Digoxin (Digoxin) 0.125 mg PO 1400 [facility] Last Admin: 09/09/18 13:57 Dose: 0.125 mg Furosemide (Lasix) 40 mg PO DAILY [facility] Last Admin: 09/10/18 09:29 Dose: 40 mg Ceftaroline Fosamil 400 mg/ (Sodium Chloride) 100 mls @ 100 mls/hr IVPB Q12 [facility]; Protocol Stop: 09/16/18 13:16 Last Admin: 09/10/18 09:30 Dose: 100 mls/hr Isosorbide Mononitrate (Imdur) 60 mg PO 0600 [facility] Last Admin: 09/10/18 06:19 Dose: 60 mg Levothyroxine Sodium (Synthroid) 100 mcg PO 0600 [facility] Last Admin: 09/10/18 06:19 Dose: 100 mcg Lisinopril (Zestril) 2.5 mg PO DAILY [facility] Last Admin: 09/10/18 09:31 Dose: Not Given Non-Formulary Medication (Lubiprostone [Amitiza]) 24 mcg PO BID [facility] Last Admin: 09/10/18 09:29 Dose: Not Given Oxycodone/Acetaminophen (Percocet 10/325 Mg Tab) 1 tab PO TID PRN PRN Reason: Pain, moderate (4-7) Last Admin: 09/08/18 17:14 Dose: 1 tab Pantoprazole Sodium (Protonix Ec Tab) 40 mg PO HS [facility] Last Admin: 09/09/18 22:32 Dose: 40 mg Spironolactone (Aldactone) 25 mg PO DAILY [facility] Last Admin: 09/10/18 09:28 Dose: 25 mg Warfarin Sodium (Coumadin) 1 mg PO 1800 [facility]; Protocol Last Admin: 09/09/18 17:28 Dose: 1 mg Zolpidem Tartrate (Ambien) 10 mg PO HS [facility]; Protocol Last Admin: 09/09/18 22:32 Dose: 10 mg Results - Vital Signs Recent Vital Signs: Last Vital Signs Temp 97.5 F L 09/10/18 06:00 Pulse 80 09/10/18 09:28 Resp 20 09/10/18 06:00 BP 115/68 09/10/18 09:31 Pulse Ox 96 09/10/18 06:00 - Labs Result Diagrams: 09/10/18 06:35 09/10/18 06:35 Labs: Laboratory Results - last 24 hr 09/09/18 09/09/18 09/09/18 16:33 18:07 21:29 WBC RBC Hgb Hct MCV MCH MCHC RDW Plt Count MPV Gran % Lymph % (Auto) Nelson % (Auto) Eos % (Auto) Baso % (Auto) Gran # Lymph # (Auto) Nelson # (Auto) Eos # (Auto) Baso # (Auto) PT INR Sodium Potassium Chloride Carbon Dioxide Anion Gap BUN Creatinine Est GFR ( Amer) Est GFR (Non-Af Amer) POC Glucose (mg/dL) 68 144 H 115 H Random Glucose Calcium Phosphorus Magnesium Total Bilirubin AST ALT Alkaline Phosphatase Total Protein Albumin Globulin Albumin/Globulin Ratio 09/10/18 09/10/18 09/10/18 06:35 06:35 06:35 WBC 2.6 L D RBC 2.54 L Hgb 8.2 L Hct 25.9 L MCV 102.0 MCH 32.3 MCHC 31.7 RDW 15.3 H Plt Count 125 MPV 10.4 Gran % 74.5 H Lymph % (Auto) 13.7 L Nelson % (Auto) 8.0 H Eos % (Auto) 3.4 Baso % (Auto) 0.4 Gran # 1.96 Lymph # (Auto) 0.4 L Nelson # (Auto) 0.2 Eos # (Auto) 0.1 Baso # (Auto) 0.01 PT 14.3 H INR 1.24 Sodium 139 Potassium 3.8 Chloride 101 Carbon Dioxide 34 H Anion Gap 7 L BUN 18 Creatinine 1.1 Est GFR ( Amer) 58 Est GFR (Non-Af Amer) 48 POC Glucose (mg/dL) Random Glucose 84 Calcium 8.7 Phosphorus 2.7 Magnesium 1.4 L Total Bilirubin 0.9 AST 18 ALT 21 Alkaline Phosphatase 134 H Total Protein 5.6 L Albumin 2.9 L Globulin 2.7 Albumin/Globulin Ratio 1.1 09/10/18 09/10/18 07:23 11:28 WBC RBC Hgb Hct MCV MCH MCHC RDW Plt Count MPV Gran % Lymph % (Auto) Nelson % (Auto) Eos % (Auto) Baso % (Auto) Gran # Lymph # (Auto) Nelson # (Auto) Eos # (Auto) Baso # (Auto) PT INR Sodium Potassium Chloride Carbon Dioxide Anion Gap BUN Creatinine Est GFR ( Amer) Est GFR (Non-Af Amer) POC Glucose (mg/dL) 77 114 H Random Glucose Calcium Phosphorus Magnesium Total Bilirubin AST ALT Alkaline Phosphatase Total Protein Albumin Globulin Albumin/Globulin Ratio
--- NOTE | 2018-09-10 14:55 | PN ---
DATE: 09/10/2018 REASON FOR CONSULTATION AND FOLLOWUP: History of coronary artery disease, history of CABG, history of cardiomyopathy, ischemic, status post AICD, subsequent [id number] myocardial infarction, status post complex intervention of right coronary artery of [place]. SUBJECTIVE: The patient denies any chest pain, shortness of breath, denies any palpitation, feels a lot better. OBJECTIVE: GENERAL: Not in apparent distress, lying flat in the bed. VITAL SIGNS: Temperature afebrile, heart rate 80, blood pressure 115/68. HEENT: PERRLA. Extraocular muscles are intact. NECK: Supple. No carotid bruits or thyromegaly. CHEST: Clear to auscultation. HEART: S1, S2 regular. ABDOMEN: Soft. EXTREMITIES: Clubbing and cyanosis negative. Left groin appears normal, no hematoma, distal left pulse dorsalis pedis is 1+. LABORATORY DATA: Blood workup: WBC 2.6, hemoglobin 8.2, hematocrit 25.9, and platelet count 125. Chemistries show sodium 113, potassium 3.8, chloride 101, carbon dioxide 34, anion gap of 7, BUN 18, and creatinine of 1.1. IMPRESSION: A 78-year-old female with a past medical history significant for coronary artery disease, status post coronary artery bypass graft 18 years ago, history of mitral valve replacement, mechanical, chronic atrial fibrillation, history of chronic obstructive pulmonary disease, status post femoral-popliteal bypass and left crossover femoral-femoral bypass, history of diabetes, hypertension, hyperlipidemia, history of ischemic cardiomyopathy, status post automatic implantable cardioverter-defibrillator recently, status post generator change a week ago, admitted here after a fall. During hospitalization, the patient developed chest pain, positive troponin, unstable angina. Yesterday, the patient underwent cardiac catheterization and a very complex intervention to total right coronary artery occluded, successful intervention was done with 2 drug-eluting stents proximal and distal right coronary artery and mid right coronary artery plain balloon angioplasties for in-stent re-stenosis, now the patient is comfortable. PLAN: To continue Coumadin for mitral valve mechanical prosthesis as well as atrial fibrillation and Plavix for 4 weeks. After this, the patient will continue Coumadin and baby aspirin, continue Coreg, continue spironolactone, continue Lasix, continue digoxin. Conventional heart failure therapy restarted yesterday, the patient was not appropriately stopped herself. So, we restarted Coreg yesterday, restarted digoxin, restarted spironolactone, Lasix, and lisinopril. Discussed with Dr. Lincoln possible discharge planning. Upon discharge, the patient will be followed up with Dr. Ferrari. Emphasis made to continue Plavix for 4 weeks, prescription given, and nurse taking care of the patient mentioned to give the prescription fill before the patient goes home. Cyril Naranjo MD
== END 2018-09-10 15:08 | disposition home health service (06) | DRG 249 ==
LOC: ED 22:36 → ERH 09-07 02:46 → 3RSO 09-07 03:59 → OBSVTOIN 09-08 22:00 → 2RSO 09-09 10:15 → 3RSO 09-09 19:10
PROVIDERS: ADMIT Internal Medicine Medical Oncology; ATTEND Internal Medicine Nephrology
PROC: 0HQ0XZZ Repair Scalp Skin, External Approach (ICD-10-PCS; 2018-09-07)
PROC: 3E0F7GC Introduction of Other Therapeutic Substance into Respiratory Tract, Via Natural or Artificial Opening (ICD-10-PCS; 2018-09-08)
PROC: 02703EZ Dilation of Coronary Artery, One Artery with Two Intraluminal Devices, Percutaneous Approach (ICD-10-PCS; principal; 2018-09-09)
PROC: 4A023N7 Measurement of Cardiac Sampling and Pressure, Left Heart, Percutaneous Approach (ICD-10-PCS; 2018-09-09)
PROC: B2111ZZ Fluoroscopy of Multiple Coronary Arteries using Low Osmolar Contrast (ICD-10-PCS; 2018-09-09)
PROC: B2151ZZ Fluoroscopy of Left Heart using Low Osmolar Contrast (ICD-10-PCS; 2018-09-09)
PROC: B2121ZZ Fluoroscopy of Single Coronary Artery Bypass Graft using Low Osmolar Contrast (ICD-10-PCS; 2018-09-09)
PROC: B2181ZZ Fluoroscopy of Left Internal Mammary Bypass Graft using Low Osmolar Contrast (ICD-10-PCS; 2018-09-09)
PROC: 3E033PZ Introduction of Platelet Inhibitor into Peripheral Vein, Percutaneous Approach (ICD-10-PCS; 2018-09-09)
DX: I21.4 Non-ST elevation (NSTEMI) myocardial infarction (principal); T82.855A Stenosis of coronary artery stent, initial encounter; N17.9 Acute kidney failure, unspecified; I13.0 Hypertensive heart and chronic kidney disease with heart failure and stage 1 through stage 4 chronic kidney disease, or unspecified chronic kidney disease; L03.313 Cellulitis of chest wall; T82.7XXA Infection and inflammatory reaction due to other cardiac and vascular devices, implants and grafts, initial encounter; I25.110 Atherosclerotic heart disease of native coronary artery with unstable angina pectoris; I50.9 Heart failure, unspecified; N18.3 Chronic kidney disease, stage 3 (moderate); J44.9 Chronic obstructive pulmonary disease, unspecified; S01.01XA Laceration without foreign body of scalp, initial encounter; W18.30XA Fall on same level, unspecified, initial encounter; I48.2 Chronic atrial fibrillation; E11.22 Type 2 diabetes mellitus with diabetic chronic kidney disease; E11.42 Type 2 diabetes mellitus with diabetic polyneuropathy; D50.9 Iron deficiency anemia, unspecified; I25.5 Ischemic cardiomyopathy; E03.9 Hypothyroidism, unspecified; K55.20 Angiodysplasia of colon without hemorrhage; F17.210 Nicotine dependence, cigarettes, uncomplicated; Y92.009 Unspecified place in unspecified non-institutional (private) residence as the place of occurrence of the external cause; Z95.810 Presence of automatic (implantable) cardiac defibrillator; Z95.2 Presence of prosthetic heart valve; Z95.1 Presence of aortocoronary bypass graft; Z79.01 Long term (current) use of anticoagulants; Y93.01 Activity, walking, marching and hiking; Y83.1 Surgical operation with implant of artificial internal device as the cause of abnormal reaction of the patient, or of later complication, without mention of misadventure at the time of the procedure; Z86.73 Personal history of transient ischemic attack (TIA), and cerebral infarction without residual deficits; Z85.3 Personal history of malignant neoplasm of breast; Z90.10 Acquired absence of unspecified breast and nipple; Z79.02 Long term (current) use of antithrombotics/antiplatelets

== ENCOUNTER 2018-11-10 13:52 | Outpatient (CLI) | payer MEDICARE, MEDICAID | END 2018-11-10 13:53 | disposition home or self-care (01) | LOC: OPLAB 13:52 ==

== ENCOUNTER 2018-11-24 16:36 | Outpatient (CLI) | payer MEDICARE, MEDICAID | END 2018-11-24 16:37 | disposition home or self-care (01) | LOC: OPLAB 16:36 ==

== ENCOUNTER 2018-12-01 12:07 | Outpatient (CLI) | payer MEDICARE, MEDICAID | END 2018-12-01 12:08 | disposition home or self-care (01) | LOC: OPLAB 12:07 ==

== ENCOUNTER 2019-01-01 14:03 | Outpatient (CLI) | payer MEDICARE, MEDICAID | END 2019-01-01 14:04 | disposition home or self-care (01) | LOC: OPLAB 14:03 | DX: D64.9 Anemia, unspecified (principal); E78.5 Hyperlipidemia, unspecified; E83.40 Disorders of magnesium metabolism, unspecified; M81.0 Age-related osteoporosis without current pathological fracture; Z79.01 Long term (current) use of anticoagulants ==

== ENCOUNTER 2019-01-08 16:19 | Outpatient (CLI) | payer MEDICARE, MEDICAID | END 2019-01-08 16:20 | disposition home or self-care (01) | LOC: OPLAB 16:19 ==

== ENCOUNTER 2019-01-26 17:11 | Outpatient (CLI) | payer MEDICARE, MEDICAID | END 2019-01-26 17:12 | disposition home or self-care (01) | LOC: OPLAB 17:11 ==

== ENCOUNTER 2019-02-01 14:02 | Emergency (ER) | payer MEDICARE, MEDICAID ==
[2019-02-01 14:02] VITALS: PULSE 81; BMI 23.4
[2019-02-01 14:27] VITALS: RESP 18
[2019-02-01] MEDS ORDERED: Sodium Chloride 0.9% 1,000 ML IV STA (15:10)
--- NOTE | 2019-02-01 15:29 | ED PDOC ---
Arrival/HPI - General Chief Complaint: Weakness/Neurological Deficit Historian: Patient, Family - History of Present Illness Narrative History of Present Illness (Text): 02/01/19 15:21 Franchesca Ohara is a 78 y.o female with past medical history of CAD s/p stenting and PPM, s/p CABG and mechanical mitral valve, DMII, HTN, Hypothyroid, COPD, GI bleed, anemia, and anxiety/depression, who presents to the emergency department brought by EMS complaining of pain in the upper abdomen associated with lack of appetite, nauseas, vomiting, and dizziness. Patient's friend states she has not been eating for the past three days. Patient denies having fever, chills, shortness of breath, or any other complaints. Time/Duration: < week (3 days. ) Symptom Onset: Gradual Activities at Onset: Light Context: Home Past Medical History - Provider Review Nursing Documentation Reviewed: Yes - Past History Past History: No Previous - Infectious Disease Hx of Infectious Diseases: None - Tetanus Immunization Tetanus Immunization: Unknown - Reproductive Menopause: Yes - Cardiac Hx Cardiac Disorders: Yes (5 stents) Hx Congestive Heart Failure: Yes Hx Hypertension: Yes Hx Internal Defibrillator: Yes Hx Pacemaker: Yes - Pulmonary Hx Bronchitis: Yes - Neurological Hx Neurological Disorder: Yes HX Cerebrovascular Accident: Yes Hx Dementia: Yes Hx Dizziness: Yes - HEENT Hx Cataracts: Yes (b/l) - Renal Hx Renal Disorder: No Hx Renal Failure: No (denied) - Endocrine/Metabolic Hx Endocrine Disorders: Yes Hx Diabetes Mellitus Type 2: Yes Hx Hypothyroidism: Yes - Hematological/Oncological Hx Blood Disorders: Yes Hx Anemia: Yes (iron deficiency-IRON INFUSIONS) - Integumentary Hx Dermatological Disorder: No - Musculoskeletal/Rheumatological Hx Musculoskeletal Disorders: Yes Hx Arthritis: Yes Hx Back Pain: Yes Hx Falls: Yes Hx Herniated Disk: Yes - Gastrointestinal Hx Crohn's Disease: Yes - Genitourinary/Gynecological Hx Genitourinary Disorders: No - Psychiatric Hx Psychophysiologic Disorder: Yes (SMOKES 5 CIG A DAY. SMOKED FOR 50 YRS) Hx Anxiety: Yes Hx Depression: Yes Hx Substance Use: No - Surgical History Hx Vascular Access Device: Yes (R side chest port) Other/Comment: removal of blockage in both groin, thyroid sx - Anesthesia Hx Anesthesia: No Hx Anesthesia Reactions: No Hx Malignant Hyperthermia: No - Suicidal Assessment Feels Threatened In Home Enviroment: No Family/Social History - Physician Review Nursing Documentation Reviewed: Yes Family/Social History: Unknown Family HX Smoking Status: Light Smoker < 10 Cigarettes Daily Hx Alcohol Use: No Hx Substance Use: No Hx Substance Use Treatment: No Allergies/Home Meds Allergies/Adverse Reactions: Allergies Sulfa (Sulfonamide Antibiotics) Allergy (Mild, Verified 02/01/19 14:14) RASH Home Medications: Home Meds Medication Instructions Recorded Confirmed Metformin HCl [Glucophage] 500 mg PO BID 12/01/15 02/01/19 Zolpidem [Ambien] 10 mg PO HS 12/01/15 02/01/19 Lubiprostone [Amitiza] 24 mcg PO BID 08/26/17 02/01/19 Acetaminophen/Oxycodone Hydr 1 tab PO TID PRN 07/20/18 02/01/19 [Percocet 10/325 mg Tab] Albuterol HFA [Ventolin HFA 90 1 puff IH DAILY PRN 07/20/18 02/01/19 mcg/actuation (8 g)] Atorvastatin [Lipitor] 10 mg PO DIN 07/20/18 02/01/19 Fluticasone/Salmeterol 250/50 1 puff IH Q12 07/20/18 02/01/19 [Advair Diskus 250/50] Morphine [Morphine Immediate 15 mg PO BID 07/20/18 02/01/19 Release Tab] Warfarin [Coumadin] 1 mg PO 1800 07/20/18 02/01/19 Aspirin [Adult Low Dose Aspirin EC] 81 mg PO DAILY 02/01/19 02/01/19 Carvedilol [Coreg] 3.125 mg PO DAILY 02/01/19 02/01/19 Digoxin 0.125 mg PO DAILY 02/01/19 02/01/19 Donepezil [Aricept] 10 mg PO DAILY 02/01/19 02/01/19 Escitalopram Oxalate [Lexapro] 5 mg PO DAILY 02/01/19 02/01/19 Furosemide [Lasix] 20 mg PO DAILY 02/01/19 02/01/19 Lisinopril [Zestril] 2.5 mg PO DAILY 02/01/19 02/01/19 Memantine [Namenda] 10 mg PO DAILY 02/01/19 02/01/19 Pantoprazole Sodium [Protonix] 20 mg PO DAILY 02/01/19 02/01/19 Spironolactone [Aldactone] 25 mg PO DAILY 02/01/19 02/01/19 Review of Systems - Physician Review All systems were reviewed & negative as marked: Yes - Review of Systems Constitutional: Weight Change. absent: Fevers Eyes: absent: Vision Changes ENT: absent: Hearing Changes Respiratory: absent: SOB Cardiovascular: absent: Chest Pain Gastrointestinal: Abdominal Pain (Upper abdominal pain.), Nausea, Vomiting, Appetite Changes Musculoskeletal: absent: Back Pain, Neck Pain Skin: absent: Rash Neurological: Dizziness. absent: Headache Physical Exam Vital Signs Reviewed: Yes Vital Signs Temp Pulse Resp BP Pulse Ox 02/01/19 14:27 97.8 F 80 18 117/52 L 98 Temperature: Afebrile Blood Pressure: Hypotensive Pulse: Regular Respiratory Rate: Normal Appearance: Positive for: Non-Toxic Pain Distress: None Mental Status: Positive for: Alert and Oriented X 3 - Systems Exam Head: Present: Other (Facial pallor. ) Pupils: Present: PERRL. No: Sluggish, Non-Reactive Extroacular Muscles: Present: EOMI Mouth: Present: Moist Mucous Membranes Neck: Present: Normal Range of Motion. No: Meningeal Signs, JVD Respiratory/Chest: Present: Clear to Auscultation, Good Air Exchange, Other (Right side pacemaker and left side port were pronounced.). No: Respiratory Distress, Wheezes, Decreased Breath Sounds, Rales, Rhonchi Abdomen: Present: Tenderness (Tenderness to palpatin of epigastric. ), Guarding. No: Rebound Medical Decision Making ED Course and Treatment: 02/01/19 15:46 Impression: 78 y.o female who presents to the emergency department complaining of pain to the upper abdomen. Differential Diagnosis included but are not limited to: Plan: -- Abdomen and pelvis CT -- EKG -- Labs -- Chest portable stat -- Pepcid -- IV fluids -- Zofran Inj -- Urinalysis stat -- Reassess and disposition Prior Visits: Notes and results from previous visits were reviewed. Progress Notes: 02/01/19 19:08 Patient noted to be ingesting food without difficulty - Lab Interpretations Narrative Lab Interpretation (Text): 02/01/19 16:45 02/01/19 15:30 02/01/19 15:30 Lab Results 02/01/19 15:30: Sodium 139, Potassium 4.5, Chloride 100, Carbon Dioxide 29, Anion Gap 14, BUN 73 H, Creatinine 1.9 H, Est GFR ( Amer) 31, Est GFR (Non-Af Amer) 26, Random Glucose 130 H, Calcium 9.7, Total Bilirubin 0.6, AST 22, ALT < 6 L, Alkaline Phosphatase 116, Total Protein 7.8, Albumin 4.3, Globulin 3.4, Albumin/Globulin Ratio 1.3, Lipase 217 02/01/19 15:30: PT Pending, INR Pending, APTT 59.0 H 02/01/19 15:30: WBC 3.7 L D, RBC 3.81, Hgb 12.6 D, Hct 36.9, MCV 96.9 D, MCH 33.1, MCHC 34.1, RDW 13.6, Plt Count 124, MPV 10.2, Neut % (Auto) 72.5 H, Lymph % (Auto) 16.4 L, Harvey % (Auto) 6.5 H, Eos % (Auto) 4.3, Baso % (Auto) 0.3, Lymph # (Auto) 0.6 L, Harvey # (Auto) 0.2, Eos # (Auto) 0.2, Baso # (Auto) 0.01, Absolute Neuts (auto) 2.69 Lab Results: 02/01/19 15:30 02/01/19 15:30 Lab Results 02/01/19 17:00: Urine Color Light yellow, Urine Appearance Clear, Urine pH 6.0, Ur Specific [place] 1.015, Urine Protein Negative, Urine Glucose (UA) Negative, Urine Ketones Negative, Urine Blood Negative, Urine Nitrate Negative, Urine Bilirubin Negative, Urine Urobilinogen 0.2, Ur Leukocyte Esterase Trace H, Urine RBC 0 - 2, Urine WBC 5 - 10 H, Ur Epithelial Cells 3 - 4, Urine Bacteria Few 02/01/19 15:30: Sodium 139, Potassium 4.5, Chloride 100, Carbon Dioxide 29, Anion Gap 14, BUN 73 H, Creatinine 1.9 H, Est GFR ( Amer) 31, Est GFR (Non-Af Amer) 26, Random Glucose 130 H, Calcium 9.7, Total Bilirubin 0.6, AST 22, ALT < 6 L, Alkaline Phosphatase 116, Total Protein 7.8, Albumin 4.3, Globulin 3.4, Albumin/Globulin Ratio 1.3, Lipase 217 02/01/19 15:30: PT Pending, INR Pending, APTT 59.0 H 02/01/19 15:30: WBC 3.7 L D, RBC 3.81, Hgb 12.6 D, Hct 36.9, MCV 96.9 D, MCH 33.1, MCHC 34.1, RDW 13.6, Plt Count 124, MPV 10.2, Neut % (Auto) 72.5 H, Lymph % (Auto) 16.4 L, Harvey % (Auto) 6.5 H, Eos % (Auto) 4.3, Baso % (Auto) 0.3, Lymph # (Auto) 0.6 L, Harvey # (Auto) 0.2, Eos # (Auto) 0.2, Baso # (Auto) 0.01, Absolute Neuts (auto) 2.69 I have reviewed the lab results: Yes - RAD Interpretation Narrative RAD Interpretations (Text): 02/01/2019 19:00 Abd/Pelvis CT IMPRESSION: No consolidation or atelectasis. Couple subcentimeter parenchymal nodules left lung base. Cardiac pacing wire noted. Lobulated liver with likely cirrhotic changes. Atrophic right kidney. Advanced atherosclerotic changes. Femoralfemoral bypass graft present. Advanced hypertrophic and degenerative changes lumbar spine. Clinical correlation advised. Dictator: Tristan Capps MD Radiology Orders: 02/01/19 15:08 CHEST PORTABLE [RAD] Stat 02/01/19 15:10 ABDOMEN & PELVIS [ABD & PELVIS IV CONTRAST ONLY] [CT] Stat - EKG Interpretation EKG Interpretation (Text): 02/01/19 14:12 EKG: Ordered, reviewed, and independently interpreted the EKG. Rate : 80 BPM Rhythm : Pacemaker Interpretation : Wide QRS. Comparison : No previous EKG for comparison. - Medication Orders Current Medication Orders: Sodium Chloride (Sodium Chloride 0.9%) 1,000 mls @ 999 mls/hr IV .Q1H1M STA Stop: 02/01/19 16:10 Discontinued Medications Famotidine (Pepcid) 20 mg IVP STAT STA Stop: 02/01/19 15:09 Ondansetron HCl (Zofran Inj) 4 mg IVP STAT STA Stop: 02/01/19 15:09 - Scribe Statement The provider has reviewed the documentation as recorded by the Scribe Analia Guevara All medical record entries made by the Scribe were at my direction and personally dictated by me. I have reviewed the chart and agree that the record accurately reflects my personal performance of the history, physical exam, medical decision making, and the department course for this patient. I have also personally directed, reviewed, and agree with the discharge instructions and disposition. Disposition/Present on Arrival - Present on Arrival Any Indicators Present on Arrival: Yes History of DVT/PE: No History of Uncontrolled Diabetes: Yes Urinary Catheter: No History of Decub. Ulcer: No History Surgical Site Infection Following: None - Disposition Have Diagnosis and Disposition been Completed?: Yes Diagnosis: Abdominal pain, Nausea & vomiting Disposition: HOME/ ROUTINE Disposition Time: 19:16 Patient Plan: Discharge Condition: IMPROVED Discharge Instructions (ExitCare): Nausea and Vomiting, Adult (DC) Print Language: SENEGALESE Additional Instructions: All medical record entries made by the Scribe were at my direction and personally dictated by me. I have reviewed the chart and agree that the record accurately reflects my personal performance of the history, physical exam, medical decision making, and the department course for this patient. I have also personally directed, reviewed, and agree with the discharge instructions and disposition. Please follow up with your PCP and oncologist in the next 3 days Take medications as prescribed Prescriptions: Ondansetron ODT [Zofran ODT] 4 mg PO Q6 #6 odt Referrals: Christian Oliveros MD [Primary Care Provider] - Follow up with primary Forms: [employer] (Nepali)
[2019-02-01 15:52] LABS: BASO # 0.01 K/mm3 (0.0-2.0); BASO % 0.3 % (0.0-3.0); EOS # 0.2 (0.0-0.7); EOS % 4.3 % (1.5-5.0); HEMOGLOBIN 12.6 g/dL (12.0-16.0); LYMPH # 0.6 (1.2-3.4); LYMPH % 16.4 % (22.0-35.0); MEAN CELL VOLUME 96.9 fl (80.0-105.0); MEAN CORPUSCULAR HEMOGLOBIN 33.1 pg (25.0-35.0); MEAN CORPUSCULAR HGB CONC 34.1 g/dl (31.0-37.0); MEAN PLATELET VOLUME 10.2 fl (7.0-11.0); MONO # 0.2 (0.1-0.6); MONO % 6.5 % (1.0-6.0); RBC 3.81 10^6/uL (3.5-6.1); RED CELL DISTRIBUTION WIDTH 13.6 % (11.5-14.5); WHITE BLOOD COUNT 3.7 10^3/uL (4.5-11.0)
[2019-02-01 15:59] LABS: ALB/GLOB RATIO 1.3 (1.1-1.8); ALBUMIN 4.3 g/dL (3.0-4.8); ALT/SGPT < 6 U/L (7-56); AST/SGOT 22 U/L (14-36); BLOOD UREA NITROGEN 73 mg/dL (7-21); CALCIUM 9.7 mg/dL (8.4-10.5); GFR NON-AFRICAN AMERICAN 26; LIPASE 217 U/L (23-300)
[2019-02-01 17:34] LABS: URINE BILIRUBIN NEGATIVE (NEGATIVE); URINE BLOOD NEGATIVE (NEGATIVE); URINE GLUCOSE (UA) NEGATIVE (NEGATIVE); URINE LEUKOCYTE ESTERASE TRACE Leu/uL (NEGATIVE); URINE PROTEIN NEGATIVE mg/dL (<30 mg/dL); URINE UROBILINOGEN 0.2 E.U./dL (<1 E.U./dL)
[2019-02-01 17:43] LABS: URINE APPEARANCE CLEAR (CLEAR); URINE COLOR LIGHT YELLOW (YELLOW)
[2019-02-01 18:05] LABS: URINE BACTERIA FEW /hpf; URINE RBC 0 - 2 /hpf (0-2)
[2019-02-01] MEDS ORDERED: Dextrose 5%/0.45% NS 1,000 ML IV SCH (20:00)
[2019-02-01 20:27] LABS: PROTHROMBIN TIME 44.3 SECONDS (9.4-12.5)
[2019-02-01 20:28] VITALS: BP 122/74; PULSE 78; TEMP 98.3; O2SAT 100
[2019-02-01 20:33] LABS: INR 3.99
--- NOTE | 2019-02-01 23:59 | CT ---
Date of service: 02/01/2019 PROCEDURE: CT Abdomen and Pelvis without intravenous contrast HISTORY: epigastric abdominal pain COMPARISON: Comparison is made with the previous study dated 08/03/2016 TECHNIQUE: Axial and reformatted coronal and sagittal CT images of the abdomen and pelvis were obtained without IV or oral contrast administration.. Contrast dose: 0 Radiation dose: Total exam DLP = 175.12 mGy-cm. This CT exam was performed using one or more of the following dose reduction techniques: Automated exposure control, adjustment of the mA and/or kV according to patient size, and/or use of iterative reconstruction technique. FINDINGS: LOWER THORAX: Again noted are few small noncalcified nodule at the left lower lobe which have not significantly changed since the previous exam. Cardiomegaly is again noted. Cardiac pacing wires are again noted in place. LIVER: Cirrhotic manifestation of the liver are noted. The assessment is suboptimal without IV contrast administration. No definite evidence of discrete mass lesion in this noncontrast study. GALLBLADDER AND BILE DUCTS: No definite evidence of acute cholecystitis or radiodense gallstones. PANCREAS: Unremarkable. No gross lesion or ductal dilatation. SPLEEN: The spleen is lobulated mildly enlarged. ADRENALS: Unremarkable. No mass. KIDNEYS AND URETERS: The right kidney is again small in size with foci of market cortical thinning. No evidence of hydronephrosis or obstructing renal calculi. The ureters are not dilated. VASCULATURE: No aortic aneurysm. Diffuse atherosclerotic calcification in the abdominal aorta and iliac arteries are noted. There is femoral femoral bypass graft in place. BOWEL: Unremarkable. No obstruction. No gross mural thickening. Colonic diverticulosis are noted without evidence of diverticulitis. APPENDIX: There is no evidence of appendicitis. PERITONEUM: Unremarkable. No free fluid. No free air. LYMPH NODES: Unremarkable. No enlarged lymph nodes. BLADDER: The urinary bladder is seen at somewhat low position suggestive of mild cystocele. REPRODUCTIVE: Unremarkable. BONES: The patient is status post kyphoplasty and segment ingestion at L1 vertebral body since the previous exam. Fggc-[id number] compression deformity in the mid and superior portion of L1 noted. Vlal-zk-[id number] degenerative changes. OTHER FINDINGS: None. IMPRESSION: No CT evidence of acute cholecystitis pancreatitis or appendicitis. Atrophy changes in the right kidney again noted. No evidence of nephrolithiasis or hydronephrosis. Cirrhosis and possible mild splenomegaly. Preliminary report was submitted by [facility] Radiology contains concordant findings.
[2019-02-02] MEDS ORDERED: Levothyroxine 100 MCG TAB PO SCH (06:00)
--- NOTE | 2019-02-02 06:10 | RAD ---
Date of service: 02/01/2019 HISTORY: abdominal pain COMPARISON: Comparison is made with 09/08/2018 TECHNIQUE: 1 view obtained. FINDINGS: LUNGS: No evidence of new infiltrate or consolidation in the lungs. PLEURA: No significant pleural effusion identified, no pneumothorax apparent. CARDIOVASCULAR: No aortic atherosclerotic calcification present. Normal cardiac size. Left-sided pacemaker wires are again seen in place. OSSEOUS STRUCTURES: No significant abnormalities. VISUALIZED UPPER ABDOMEN: Normal. OTHER FINDINGS: Right-sided Infusaport is again seen in place. IMPRESSION: No active disease. No significant interval changes noted since the prior exam.
--- NOTE | 2019-02-02 19:13 | CARD ---
APPROVED REPORT Date of service: 02/01/2019 EKG Measurement Heart [id number] <Conclusion> BiVentricular paced rhythm Abnormal ECG
== END 2019-02-01 20:28 | disposition home or self-care (01) ==
LOC: ED 14:02
DX: R11.2 Nausea with vomiting, unspecified (principal); R10.9 Unspecified abdominal pain; E03.9 Hypothyroidism, unspecified; I25.10 Atherosclerotic heart disease of native coronary artery without angina pectoris; E11.9 Type 2 diabetes mellitus without complications; F17.210 Nicotine dependence, cigarettes, uncomplicated; I50.9 Heart failure, unspecified; J44.9 Chronic obstructive pulmonary disease, unspecified; I10 Essential (primary) hypertension; Z86.73 Personal history of transient ischemic attack (TIA), and cerebral infarction without residual deficits
CPT/HCPCS: 71045; 74176; 80053; 80162; 81001; 83690; 85025; 85610; 85730; 87086; 93005; 96374; 96375; 99285; J2405; J7030

== ENCOUNTER 2019-02-03 14:55 | Outpatient (CLI) | payer MEDICARE, MEDICAID | END 2019-02-03 14:56 | disposition home or self-care (01) | LOC: LAB 14:55 ==

== ENCOUNTER 2019-02-06 10:32 | Inpatient (IN) | payer MEDICARE, MEDICAID ==
[2019-02-06 10:35] VITALS: BMI 19.7
[2019-02-06 12:29] LABS: ALB/GLOB RATIO 1.2 (1.1-1.8); ALBUMIN 3.8 g/dL (3.0-4.8); CALCIUM 9.3 mg/dL (8.4-10.5); URINE BILIRUBIN NEGATIVE (NEGATIVE); URINE BLOOD NEGATIVE (NEGATIVE); URINE GLUCOSE (UA) NEGATIVE (NEGATIVE); URINE LEUKOCYTE ESTERASE SMALL Leu/uL (NEGATIVE); URINE PROTEIN NEGATIVE mg/dL (<30 mg/dL); URINE UROBILINOGEN 0.2 E.U./dL (<1 E.U./dL)
[2019-02-06 12:30] LABS: BASO # 0.01 {null, K/mm3} (0.0-2.0); BASO % 0.3 % (0.0-3.0); EOS # 0.3 (0.0-0.7); EOS % 6.9 % (1.5-5.0); HEMOGLOBIN 10.3 g/dL (12.0-16.0); LYMPH # 0.7 (1.2-3.4); LYMPH % 17.2 % (22.0-35.0); MEAN CELL VOLUME 98.4 fl (80.0-105.0); MEAN CORPUSCULAR HGB CONC 32.5 g/dl (31.0-37.0); MEAN PLATELET VOLUME 10.4 fl (7.0-11.0); MONO # 0.2 (0.1-0.6); MONO % 6.3 % (1.0-6.0); RBC 3.22 {null, 10^6/uL} (3.5-6.1); RED CELL DISTRIBUTION WIDTH 13.7 % (11.5-14.5); URINE COLOR YELLOW (YELLOW); WHITE BLOOD COUNT 3.8 {null, 10^3/uL} (4.5-11.0)
[2019-02-06 12:31] LABS: URINE APPEARANCE SL CLOUDY (CLEAR)
[2019-02-06 12:38] LABS: URINE BACTERIA TRACE /hpf
--- NOTE | 2019-02-06 12:48 | RAD ---
Date of service: 02/06/2019 HISTORY: uti/fatigue COMPARISON: No prior. TECHNIQUE: 1 view obtained. FINDINGS: LUNGS: No active pulmonary disease. PLEURA: No significant pleural effusion identified, no pneumothorax apparent. CARDIOVASCULAR: Aortic calcification Moderate cardiomegaly no pulmonary vascular congestion. OSSEOUS STRUCTURES: Sternal wires VISUALIZED UPPER ABDOMEN: Normal. OTHER FINDINGS: Pacemaker and Port-A-Cath IMPRESSION: No active disease.
--- NOTE | 2019-02-06 12:59 | ED PDOC ---
Arrival/HPI - General Chief Complaint: Female Genitourinary Time Seen by Provider: 02/06/19 10:39 Historian: Patient - History of Present Illness Narrative History of Present Illness (Text): 02/06/19 12:34 78-year-old female with a history of COPD CHF with pacemaker, anemia presents today for admission for IV antibiotics for urinary tract infection. Patient states she was seen in the hospital for abdominal pain a few days ago and received a call for urinary tract infection. Patient states she has been feeling fatigued lately. Patient's friend states she has been having decreased appetite for the past few days. Patient denies dizziness. Patient denies chest pain. Patient denies shortness of breath outside of her usual. Past Medical History - Provider Review Nursing Documentation Reviewed: Yes - Travel History Have you recently traveled outside [place] w/in the past 3 mons?: No - Past History Past History: No Previous - Infectious Disease Hx of Infectious Diseases: None - Tetanus Immunization Tetanus Immunization: Unknown - Cardiac Hx Cardiac Disorders: Yes (5 stents) Hx Congestive Heart Failure: Yes Hx Hypertension: Yes Hx Internal Defibrillator: Yes Hx Pacemaker: Yes - Pulmonary Hx Bronchitis: Yes - Neurological Hx Neurological Disorder: Yes HX Cerebrovascular Accident: Yes Hx Dementia: Yes Hx Dizziness: Yes - HEENT Hx Cataracts: Yes (b/l) - Renal Hx Renal Disorder: No Hx Renal Failure: No (denied) - Endocrine/Metabolic Hx Endocrine Disorders: Yes Hx Diabetes Mellitus Type 2: Yes Hx Hypothyroidism: Yes - Hematological/Oncological Hx Blood Disorders: Yes Hx Anemia: Yes (iron deficiency-IRON INFUSIONS) - Integumentary Hx Dermatological Disorder: No - Musculoskeletal/Rheumatological Hx Musculoskeletal Disorders: Yes Hx Arthritis: Yes Hx Back Pain: Yes Hx Falls: Yes Hx Herniated Disk: Yes - Gastrointestinal Hx Crohn's Disease: Yes - Genitourinary/Gynecological Hx Genitourinary Disorders: No - Psychiatric Hx Psychophysiologic Disorder: Yes (SMOKES 5 CIG A DAY. SMOKED FOR 50 YRS) Hx Anxiety: Yes Hx Depression: Yes Hx Substance Use: No - Surgical History Hx Vascular Access Device: Yes (R side chest port) Other/Comment: removal of blockage in both groin, thyroid sx - Anesthesia Hx Anesthesia: No Hx Anesthesia Reactions: No Hx Malignant Hyperthermia: No - Suicidal Assessment Feels Threatened In Home Enviroment: No Family/Social History - Physician Review Nursing Documentation Reviewed: Yes Family/Social History: Unknown Family HX Smoking Status: Light Smoker < 10 Cigarettes Daily Hx Alcohol Use: No Hx Substance Use: No Hx Substance Use Treatment: No Allergies/Home Meds Allergies/Adverse Reactions: Allergies Sulfa (Sulfonamide Antibiotics) Allergy (Mild, Verified 02/01/19 14:14) RASH Home Medications: Home Meds Medication Instructions Recorded Confirmed Metformin HCl [Glucophage] 500 mg PO BID 12/01/15 02/01/19 Zolpidem [Ambien] 10 mg PO HS 12/01/15 02/01/19 Lubiprostone [Amitiza] 24 mcg PO BID 08/26/17 02/01/19 Acetaminophen/Oxycodone Hydr 1 tab PO TID PRN 07/20/18 02/01/19 [Percocet 10/325 mg Tab] Albuterol HFA [Ventolin HFA 90 1 puff IH DAILY PRN 07/20/18 02/01/19 mcg/actuation (8 g)] Atorvastatin [Lipitor] 10 mg PO DIN 07/20/18 02/01/19 Fluticasone/Salmeterol 250/50 1 puff IH Q12 07/20/18 02/01/19 [Advair Diskus 250/50] Morphine [Morphine Immediate 15 mg PO BID 07/20/18 02/01/19 Release Tab] Warfarin [Coumadin] 1 mg PO 1800 07/20/18 02/01/19 Aspirin [Adult Low Dose Aspirin EC] 81 mg PO DAILY 02/01/19 02/01/19 Carvedilol [Coreg] 3.125 mg PO DAILY 02/01/19 02/01/19 Digoxin 0.125 mg PO DAILY 02/01/19 02/01/19 Donepezil [Aricept] 10 mg PO DAILY 02/01/19 02/01/19 Escitalopram Oxalate [Lexapro] 5 mg PO DAILY 02/01/19 02/01/19 Furosemide [Lasix] 20 mg PO DAILY 02/01/19 02/01/19 Lisinopril [Zestril] 2.5 mg PO DAILY 02/01/19 02/01/19 Memantine [Namenda] 10 mg PO DAILY 02/01/19 02/01/19 Pantoprazole Sodium [Protonix] 20 mg PO DAILY 02/01/19 02/01/19 Spironolactone [Aldactone] 25 mg PO DAILY 02/01/19 02/01/19 Review of Systems - Review of Systems Constitutional: Fatigue. absent: Fevers Respiratory: absent: SOB, Cough Cardiovascular: absent: Chest Pain, Palpitations Gastrointestinal: Abdominal Pain. absent: Constipation, Diarrhea, Nausea, Vomiting Genitourinary Female: absent: Dysuria, Hematuria, Urine Output Changes Musculoskeletal: absent: Arthralgias, Back Pain, Neck Pain Skin: absent: Rash, Pruritis Neurological: absent: Headache, Dizziness Psychiatric: absent: Anxiety, Depression Physical Exam Vital Signs Reviewed: Yes Vital Signs Temp Pulse Resp BP Pulse Ox 02/06/19 10:33 97.2 F L 80 18 120/54 L 98 Temperature: Afebrile Blood Pressure: Normal Pulse: Regular Respiratory Rate: Normal Appearance: Positive for: Well-Appearing, Non-Toxic, Comfortable Pain Distress: None Mental Status: Positive for: Alert and Oriented X 3 - Systems Exam Head: Present: Atraumatic Mouth: Present: Moist Mucous Membranes Neck: Present: Normal Range of Motion Respiratory/Chest: Present: Good Air Exchange, Wheezes (slight wheezing noted bilaterally). No: Respiratory Distress, Accessory Muscle Use, Retracting Cardiovascular: Present: Regular Rate and Rhythm Abdomen: Present: Tenderness (minimal tenderness ). No: Distention, Rebound, Guarding Back: Present: Normal Inspection. No: CVA Tenderness, Midline Tenderness, Paraspinal Tenderness Upper Extremity: Present: Normal ROM Lower Extremity: Present: Normal ROM Neurological: Present: GCS=15, Speech Normal Skin: Present: Warm, Dry, Normal Color. No: Rashes Psychiatric: Present: Alert, Oriented x 3 Medical Decision Making ED Course and Treatment: 02/06/19 14:59 78yr old female sent in for admission for UTI. Patient was seen in the ER on 424 with a urinary tract infection urine culture showed E. coli which was sensitive to sulfa and Macrobid. Unfortunately the patient is allergic to sulfa and due to her kidney function she is unable to take Macrobid. CBC wbc; 3.8 CMP wnl cxr: wnl UA: Positive leukocytes The case was discussed with Dr. Lopez in depth patient started on 500 mg of meropenem IV for urinary tract infection. Consult Dr. Kelley Impression: Urinary tract infection Admit to [facility] [place] 02/06/19 15:02 - Lab Interpretations Lab Results: Total Bilirubin 0.5 mg/dL (0.2-1.3) 02/06/19 12:00 AST 24 U/L (14-36) 02/06/19 12:00 ALT 13 U/L (7-56) 02/06/19 12:00 Alkaline Phosphatase 114 U/L (38-126) 02/06/19 12:00 Total Protein 6.9 g/dL (5.8-8.3) 02/06/19 12:00 Albumin 3.8 g/dL (3.0-4.8) 02/06/19 12:00 Globulin 3.1 gm/dL 02/06/19 12:00 Albumin/Globulin Ratio 1.2 (1.1-1.8) 02/06/19 12:00 Urine Color Yellow (YELLOW) 02/06/19 12:00 Urine Appearance Sl cloudy (CLEAR) 02/06/19 12:00 Urine pH 6.0 (4.7-8.0) 02/06/19 12:00 Ur Specific [place] 1.020 (1.005-1.035) 02/06/19 12:00 Urine Protein Negative mg/dL (<30 mg/dL) 02/06/19 12:00 Urine Glucose (UA) Negative mg/dL (NEGATIVE) 02/06/19 12:00 Urine Ketones Negative mg/dL (NEGATIVE) 02/06/19 12:00 Urine Blood Negative (NEGATIVE) 02/06/19 12:00 Urine Nitrate Negative (NEGATIVE) 02/06/19 12:00 Urine Bilirubin Negative (NEGATIVE) 02/06/19 12:00 Urine Urobilinogen 0.2 E.U./dL (<1 E.U./dL) 02/06/19 12:00 Ur Leukocyte Esterase Small Ignacio/uL (NEGATIVE) H 02/06/19 12:00 - RAD Interpretation Radiology Orders: 02/06/19 11:13 CHEST PORTABLE [RAD] Stat Disposition/Present on Arrival - Present on Arrival Any Indicators Present on Arrival: Yes History of DVT/PE: No History of Uncontrolled Diabetes: Yes Urinary Catheter: No History of Decub. Ulcer: No History Surgical Site Infection Following: None - Disposition Have Diagnosis and Disposition been Completed?: Yes Diagnosis: Urinary tract infection Disposition: HOSPITALIZED Disposition Time: 12:02 Patient Plan: Admission Patient Problems: Current Active Problems Problem Status Onset Urinary tract infection Acute Condition: FAIR Forms: [employer] (Armenian)
[2019-02-06] MEDS ORDERED: MEROPENEM 500 MG in NS 500 MG/50 ML BAG IVPB STA (14:54)
[2019-02-06 15:29] LABS: INR 1.13; PARTIAL THROMBOPLASTIN TIME 37.7 Seconds (26.9-38.3); PROTHROMBIN TIME 12.5 SECONDS (9.4-12.5)
[2019-02-06] MEDS ORDERED: Pneumococcal 23-Valent Vaccine IM ONE (23:21)
[2019-02-07] MEDS: Levothyroxine 100 MCG TAB PO SCH (05:20)
[2019-02-07] MEDS: LUBIPROSTONE 24 MCG PO SCH ×2 (09:35→17:09)
--- NOTE | 2019-02-07 11:40 | CP.PCM.HP ---
<Leslie Morgan - Last Filed: 02/07/19 11:47> History of Present Illness - History of Present Illness History of Present Illness: H&P for Dr. Lincoln Service CC: UTI HPI: 78 F with a PMHx of COPD, CHF, AICD & pacemaker, Iron deficiency anemia with monthly infusions by vanessa cath, CAD s/p stents, cva with residual left sided weakness, DM2, mechanical mitral valve, CKD 3, atrophy of right kideny, and hx of ESBL presented to [place] [facility] for admission for IV antibiotics for urinary tract infection. Patient was seen in the ER on 02/04 with a urinary tract infection urine culture showed E. coli +ESBL which was sensitive to sulfa and Macrobid. Unfortunately the patient is allergic to sulfa and due to her kidney function she is unable to take Macrobid. Patient was advised to visit the nearest ED for urinary tract infection management and treatment. Patient states she has been feeling fatigued lately. Patient's friend states she has been having decreased appetite for the past few days. Patient denied fever, chills, shortness of breath, chest pains, nausea, vomiting, diarrhea, constipation, or dysuria. PMHx:COPD, CHF, AICD & pacemaker, Iron deficiency anemia, CAD s/p stents, cva wi th residual left sided weakness, DM2, mechanical mitral valve, CKD 3, atrophy of right kideny, and hx of ESBL PSHx: AICD/pacemaker, mechanical mitral valve, port a cath placement, thyroidectomy SHx; Admits to tobacco use, denied etoh or illicits FamHx: NC Meds: MAR reviewed Allergies: [place] drugs PMD: Dr. Oliveros Present on Admission - Present on Admission Any Indicators Present on Admission: No Review of Systems - Review of Systems Review of Systems: as per HPI otherwise negative Past Patient History - Infectious Disease Hx of Infectious Diseases: None - Tetanus Immunizations Tetanus Immunization: Unknown - Past Social History Smoking Status: Current Some Days Smoker - CARDIAC Hx Cardiac Disorders: Yes (5 stents) Hx Congestive Heart Failure: Yes Hx Hypertension: Yes Hx Internal Defibrillator: Yes Hx Pacemaker: Yes - PULMONARY Hx Respiratory Disorders: Yes (SMOKES CIGARETTES CURRENTLY. 5 CIG A DAY.) Hx Bronchitis: Yes - NEUROLOGICAL Hx Neurological Disorder: Yes HX Cerebrovascular Accident: Yes Hx Dementia: Yes Hx Dizziness: Yes - HEENT Hx HEENT Problems: Yes Hx Cataracts: Yes (b/l) - RENAL Hx Chronic Kidney Disease: No Hx Renal Failure: No (denied) - ENDOCRINE/METABOLIC Hx Endocrine Disorders: Yes Hx Diabetes Mellitus Type 2: Yes Hx Hypothyroidism: Yes - HEMATOLOGICAL/ONCOLOGICAL Hx Blood Disorders: Yes Hx Anemia: Yes (iron deficiency-IRON INFUSIONS Q MONTH) - INTEGUMENTARY Hx Dermatological Problems: No - MUSCULOSKELETAL/RHEUMATOLOGICAL Hx Musculoskeletal Disorders: Yes Hx Arthritis: Yes Hx Back Pain: Yes Hx Falls: Yes Hx Herniated Disk: Yes - GASTROINTESTINAL Hx Crohn's Disease: Yes - GENITOURINARY/GYNECOLOGICAL Hx Genitourinary Disorders: No - PSYCHIATRIC Hx Psychophysiologic Disorder: Yes (SMOKES 5 CIG A DAY. SMOKED FOR 50 YRS) Hx Anxiety: Yes Hx Depression: Yes Hx Substance Use: No - SURGICAL HISTORY Hx Surgeries: Yes (PORT RIGHT SIDE,PACEMAKER LCW) Other/Comment: removal of blockage in both groin, thyroid sx - ANESTHESIA Hx Anesthesia: No Hx Anesthesia Reactions: No Hx Malignant Hyperthermia: No Meds Allergies/Adverse Reactions: Allergies Allergy/AdvReac Type Severity Reaction Status Date / Time Sulfa (Sulfonamide Allergy Mild RASH Verified 02/06/19 19:41 Antibiotics) Physical Exam - Constitutional Appears: No Acute Distress - Head Exam Head Exam: ATRAUMATIC, NORMAL INSPECTION, NORMOCEPHALIC - Eye Exam Eye Exam: EOMI, Normal appearance, PERRL Pupil Exam: NORMAL ACCOMODATION, PERRL - ENT Exam ENT Exam: Mucous Membranes Moist, Normal Exam - Respiratory Exam Respiratory Exam: Clear to Auscultation Bilateral, NORMAL BREATHING PATTERN - Cardiovascular Exam Cardiovascular Exam: REGULAR RHYTHM, +S1, +S2 - GI/Abdominal Exam GI & Abdominal Exam: Normal Bowel Sounds, Soft. absent: Tenderness - Extremities Exam Extremities exam: Positive for: normal inspection - Neurological Exam Neurological exam: Alert, CN II-XII Intact, Normal Gait, Oriented x3, Reflexes Normal - Psychiatric Exam Psychiatric exam: Normal Affect, Normal Mood - Skin Skin Exam: Dry, Intact, Normal Color, Warm Results - Vital Signs Recent Vital Signs: Last Vital Signs Temp 98.5 F 02/07/19 07:54 Pulse 78 02/07/19 07:54 Resp 18 02/07/19 07:54 BP 100/56 L 02/07/19 09:31 Pulse Ox 96 02/07/19 07:54 - Labs Result Diagrams: 02/06/19 12:00 02/06/19 12:00 Labs: Laboratory Results - last 24 hr 02/06/19 02/06/19 02/06/19 12:00 12:00 12:00 WBC 3.8 L RBC 3.22 L Hgb 10.3 L D Hct 31.7 L MCV 98.4 MCH 32.0 MCHC 32.5 RDW 13.7 Plt Count 108 L MPV 10.4 Neut % (Auto) 69.3 H Lymph % (Auto) 17.2 L Collier % (Auto) 6.3 H Eos % (Auto) 6.9 H Baso % (Auto) 0.3 Lymph # (Auto) 0.7 L [place]lier # (Auto) 0.2 Eos # (Auto) 0.3 Baso # (Auto) 0.01 Absolute Neuts (auto) 2.62 PT INR APTT Sodium 139 Potassium 5.0 Chloride 104 Carbon Dioxide 28 Anion Gap 12 BUN 46 H Creatinine 1.5 H Est GFR ( Amer) 41 Est GFR (Non-Af Amer) 34 POC Glucose (mg/dL) Random Glucose 89 Calcium 9.3 Total Bilirubin 0.5 AST 24 ALT 13 Alkaline Phosphatase 114 NT-Pro-B Natriuret Pep 6610 H Total Protein 6.9 Albumin 3.8 Globulin 3.1 Albumin/Globulin Ratio 1.2 Urine Color Yellow Urine Appearance Sl cloudy Urine pH 6.0 Ur Specific [place] 1.020 Urine Protein Negative Urine Glucose (UA) Negative Urine Ketones Negative Urine Blood Negative Urine Nitrate Negative Urine Bilirubin Negative Urine Urobilinogen 0.2 Ur Leukocyte Esterase Small H Urine RBC None Urine WBC 5 - 10 H Ur Epithelial Cells 4 - 5 Urine Bacteria Trace 02/06/19 02/06/19 15:17 16:52 WBC RBC Hgb Hct MCV MCH MCHC RDW Plt Count MPV Neut % (Auto) Lymph % (Auto) Collier % (Auto) Eos % (Auto) Baso % (Auto) Lymph # (Auto) Collier # (Auto) Eos # (Auto) Baso # (Auto) Absolute Neuts (auto) PT 12.5 INR 1.13 APTT 37.7 Sodium Potassium Chloride Carbon Dioxide Anion Gap BUN Creatinine Est GFR ( Amer) Est GFR (Non-Af Amer) POC Glucose (mg/dL) 99 Random Glucose Calcium Total Bilirubin AST ALT Alkaline Phosphatase NT-Pro-B Natriuret Pep Total Protein Albumin Globulin Albumin/Globulin Ratio Urine Color Urine Appearance Urine pH Ur Specific [place] Urine Protein Urine Glucose (UA) Urine Ketones Urine Blood Urine Nitrate Urine Bilirubin Urine Urobilinogen Ur Leukocyte Esterase Urine RBC Urine WBC Ur Epithelial Cells Urine Bacteria Assessment & Plan - Assessment and Plan (Free Text) Assessment: ESBL UTI COPD GEORGE on CKD3 CHF s/p AICD and pacemaker Iron def anemia, monthly infusion by port-a cath hypothyroidism s/p throidectomy cva with residual left sided weakness DM2 Mechanical mitral valve kyphoplasty atrophy of right kidney Hx ESBL Plan: Patient is confortable. patient started on merrem for ESBL UTI and on contact precauctions. ID consulted, will appreciate further recommendations. Patient without leukocytosis, CXR was reviewed, UA/UCx reviewed. Patient to continue synthroid for hypothyroidism, lisinopril for HTN, amitiza for constipation, asa for cad, spironolactone nad dogixin for chf, aricept, memantine for dementia and lexapro for depression. Seen reviewed and discussed with Dr. Lincoln <Joaquín Lincoln S - Last Filed: 02/07/19 18:18> Results - Vital Signs Recent Vital Signs: Last Vital Signs Temp 97.6 F 02/07/19 14:00 Pulse 78 02/07/19 14:00 Resp 16 02/07/19 14:00 BP 114/58 L 02/07/19 14:00 Pulse Ox 95 02/07/19 14:00 - Labs Result Diagrams: 02/06/19 12:00 02/06/19 12:00 Labs: Laboratory Results - last 24 hr 02/06/19 16:52 POC Glucose (mg/dL) 99 Assessment & Plan - Assessment and Plan (Free Text) Assessment: Pt seen and examined by me. I have reviewed the note of the medical office assistant and I agree with it. I have discussed the assessment and plan with the resident. I have reviewed the medications and the last labs.
[2019-02-07] MEDS: Digoxin 125 mcg (0.125 mg) Tab PO SCH (13:24)
[2019-02-07] MEDS: Meropenem IV 1 gm in NS 1 GM/50 ML BAG IVPB SCH (21:21)
[2019-02-07 23:09] VITALS: RESP 18
--- NOTE | 2019-02-08 02:16 | HP ---
DATE OF EXAM: 02/07/2019 HISTORY OF PRESENT ILLNESS: The patient was seen and examined, I do agree with the note of the medical manager. I was involved in the plan of care. The patient has UTI secondary to ESBL. The patient was advised to come into the hospital 2 days ago but she refused, and decided to come in yesterday. She understood the risk of delaying the treatment for her ESBL and UTI. She has CKD stage III, and acute kidney injury. She has thyroidectomy and had hypothyroidism. She is going to be on Synthroid for her hypothyroidism. She is on lisinopril for her hypertension. She is going to continue with Amitiza for constipation. She is going to continue with aspirin for coronary artery disease. The patient is on digoxin and spironolactone for her CHF. She is on memantine for her dementia. She has depression and she is being treated for her depression with Lexapro. She is on daptomycin for IV antibiotic. The patient will be followed by ID, I do appreciate their input. We will continue with current treatment. Joaquín Lincoln MD
--- NOTE | 2019-02-08 02:33 | CON ---
DATE: 02/07/2019 The patient is in room 568, seen earlier today in bed 2. CHIEF COMPLAINT: Weakness. HISTORY OF PRESENT ILLNESS: This 78-year-old female with coronary artery disease, cardiac arrhythmia, congestive heart failure, myocardial infarction, hypercoagulable state, anxiety, who is admitted. The patient has right-sided Port-A-Cath and a left-sided chest wall pacemaker, who was admitted through the emergency room. In the emergency room, the patient has noted to have COPD, congestive heart failure, kidney disease, pacemaker, possible urinary tract infection although she denies any urinary symptoms. She states there is no dysuria. No frequency. She is complaining of pain at the right side of chest Port-A-Cath. REVIEW OF SYSTEMS: Reveals 12-point review of systems is noted. She denies any fevers and chills. PAST MEDICAL HISTORY: Significant for coronary artery disease, cardiac arrhythmia, congestive heart failure, myocardial infarction, kidney disease, COPD, GI angiodysplasia, hypercoagulable state, anxiety and depression. PAST SURGICAL HISTORY: Significant for left chest wall pacemaker, Port-A-Cath, cardiac catheterization with stent placement, thyroidectomy. ALLERGIES: SULFA. MEDICATIONS: Reviewed. PHYSICAL EXAMINATION: GENERAL: The patient is in bed. VITAL SIGNS: Temperature of 98, blood pressure 107/50, respiratory rate of 18, pulse of 78. HEENT: Unremarkable. NECK: Supple. LUNGS: Decreased breath sounds. HEART: Normal S1, S2. ABDOMEN: Soft and nontender. LABORATORY DATA: Reveals white count of , hemoglobin of 10, platelets of 108. Hypercoagulable state. Coagulation is noted. The patient's creatinine 1.5. She has elevated creatinine in the past. BNP is 6610. Urinalysis is unremarkable. Blood cultures are negative. Of note is that there is tenderness on the right Port-A-Cath. No break in skin. No discharge. Mild erythema; however, there is significant tenderness. The patient had a chest x-ray which is negative. ASSESSMENT AND PLAN: A 78-year-old female with: 1. Pancytopenia with possibly right Port-A-Cath infection, also the blood cultures are negative. We will treat the patient with daptomycin and meropenem. The patient does not have any urinary symptoms. Would not recommend treatment for asymptomatic bacteriuria; however, the pancytopenia mostly workup, we also order a human immunodeficiency virus test, review of the bone marrow, suppression. Pending final culture results. We will make further recommendations. Diego Kelley MD
[2019-02-08] MEDS: Levothyroxine 100 MCG TAB PO SCH (05:18)
[2019-02-08] MEDS: Meropenem IV 1 gm in NS 1 GM/50 ML BAG IVPB SCH ×3 (05:18→21:12)
[2019-02-08] MEDS: LUBIPROSTONE 24 MCG PO SCH ×2 (09:27→17:38)
--- NOTE | 2019-02-08 11:28 | CP.PCM.PN ---
<Leslie Morgan - Last Filed: 02/08/19 11:25> Subjective - Date & Time of Evaluation Date of Evaluation: 02/08/19 Time of Evaluation: 09:00 - Subjective Subjective: Progress Note for Dr. Lincoln Patient seen and examined at bedside. No acute complaints at this time. patient denied fever, chills, shortness of breath, chest pains, abdominal pains, rashes, nausea, vomiting, dysuria, diarrhea, or constipation Objective - Vital Signs/Intake and Output Vital Signs (last 24 hours): Temp Pulse Resp BP Pulse Ox 98.2 F 80 18 121/56 L 96 02/08/19 06:00 02/08/19 06:00 02/08/19 06:00 02/08/19 06:00 02/08/19 06:00 - Medications Medications: Current Medications Aspirin (Ecotrin) 81 mg PO DAILY [facility] Last Admin: 02/08/19 09:27 Dose: 81 mg Carvedilol (Coreg) 3.125 mg PO DAILY [facility] Last Admin: 02/08/19 09:27 Dose: 3.125 mg Digoxin (Digoxin) 0.125 mg PO 1400 [facility] Last Admin: 02/07/19 13:24 Dose: 0.125 mg Donepezil HCl (Aricept) 10 mg PO DAILY [facility] Last Admin: 02/08/19 09:27 Dose: 10 mg Escitalopram Oxalate (Lexapro) 5 mg PO DAILY [facility] Last Admin: 02/07/19 09:32 Dose: 5 mg Daptomycin 290 mg/ Sodium (Chloride) 100 mls @ 200 mls/hr IV Q24H [facility]; Protocol Stop: 02/16/19 13:31 Last Admin: 02/07/19 15:04 Dose: 200 mls/hr Meropenem (Merrem Iv 1 Gm Premix) 1 gm in 50 mls @ 100 mls/hr IVPB Q8 [facility]; Protocol Stop: 02/16/19 22:01 Last Admin: 02/08/19 05:18 Dose: 100 mls/hr Levothyroxine Sodium (Synthroid) 100 mcg PO 0600 [facility] Last Admin: 02/08/19 05:18 Dose: 100 mcg Lisinopril (Zestril) 2.5 mg PO DAILY [facility] Last Admin: 02/07/19 09:30 Dose: Not Given Memantine (Namenda) 10 mg PO DAILY [facility] Last Admin: 02/08/19 09:27 Dose: 10 mg Lubiprostone [ Amitiza] 24 Mcg ( Home Med) 24 mcg PO BID [facility] Last Admin: 02/08/19 09:27 Dose: Not Given Ondansetron HCl (Zofran Inj) 4 mg IVP Q6H PRN PRN Reason: Nausea/Vomiting Last Admin: 02/07/19 23:20 Dose: 4 mg Spironolactone (Aldactone) 25 mg PO DAILY [facility] Last Admin: 02/08/19 09:27 Dose: 25 mg - Labs Labs: 02/06/19 12:00 02/06/19 12:00 PT 12.5 SECONDS (9.4-12.5) 02/06/19 15:17 INR 1.13 02/06/19 15:17 APTT 37.7 Seconds (26.9-38.3) 02/06/19 15:17 - Constitutional Appears: No Acute Distress - Head Exam Head Exam: ATRAUMATIC, NORMAL INSPECTION, NORMOCEPHALIC - Eye Exam Eye Exam: EOMI, Normal appearance, PERRL Pupil Exam: NORMAL ACCOMODATION, PERRL - ENT Exam ENT Exam: Mucous Membranes Moist, Normal Exam - Respiratory Exam Respiratory Exam: Decreased Breath Sounds, NORMAL BREATHING PATTERN - Cardiovascular Exam Cardiovascular Exam: REGULAR RHYTHM, +S1, +S2 - GI/Abdominal Exam GI & Abdominal Exam: Soft, Normal Bowel Sounds. absent: Tenderness - Neurological Exam Neurological Exam: Alert, Awake, CN II-XII Intact, Oriented x3 - Psychiatric Exam Psychiatric exam: Normal Affect, Normal Mood - Skin Skin Exam: Dry, Intact, Normal Color, Warm Assessment and Plan - Assessment and Plan (Free Text) Assessment: pancytopenia with possible rt port a cath infx, bCx negative asymptomatic bacteruira ESBL UTI COPD GEORGE on CKD3 CHF s/p AICD and pacemaker Iron def anemia, monthly infusion by port-a cath hypothyroidism s/p throidectomy cva with residual left sided weakness DM2 Mechanical mitral valve kyphoplasty atrophy of right kidney Hx ESBL Plan: Patient is comfortable. patient started on merrem and dapto for ESBL UTI and possible rt port a cath infx. ID consulted, will appreciate further recommendations. CXR was reviewed, UA/UCx reviewed. Patient to continue synthroid for hypothyroidism, lisinopril for HTN, amitiza for constipation, asa for cad, spironolactone nad dogixin for chf, aricept, memantine for dementia and lexapro for depression. Seen reviewed and discussed with Dr. Lincoln <Joaquín Lincoln S - Last Filed: 02/08/19 18:01> Objective - Vital Signs/Intake and Output Vital Signs (last 24 hours): Temp Pulse Resp BP Pulse Ox 98.0 F 80 18 100/52 L 96 02/08/19 14:00 02/08/19 14:00 02/08/19 14:00 02/08/19 14:00 02/08/19 14:00 - Medications Medications: Current Medications Aspirin (Ecotrin) 81 mg PO DAILY [facility] Last Admin: 02/08/19 09:27 Dose: 81 mg Carvedilol (Coreg) 3.125 mg PO DAILY [facility] Last Admin: 02/08/19 09:27 Dose: 3.125 mg Digoxin (Digoxin) 0.125 mg PO 1400 [facility] Last Admin: 02/08/19 14:13 Dose: 0.125 mg Donepezil HCl (Aricept) 10 mg PO DAILY [facility] Last Admin: 02/08/19 09:27 Dose: 10 mg Escitalopram Oxalate (Lexapro) 5 mg PO DAILY [facility] Last Admin: 02/08/19 14:13 Dose: 5 mg Daptomycin 290 mg/ Sodium (Chloride) 100 mls @ 200 mls/hr IV Q24H [facility]; Protocol Stop: 02/16/19 13:31 Last Admin: 02/08/19 14:15 Dose: 200 mls/hr Meropenem (Merrem Iv 1 Gm Premix) 1 gm in 50 mls @ 100 mls/hr IVPB Q8 [facility]; Protocol Stop: 02/16/19 22:01 Last Admin: 02/08/19 14:14 Dose: 100 mls/hr Levothyroxine Sodium (Synthroid) 100 mcg PO 0600 [facility] Last Admin: 02/08/19 05:18 Dose: 100 mcg Lisinopril (Zestril) 2.5 mg PO DAILY [facility] Last Admin: 02/08/19 14:13 Dose: 2.5 mg Magnesium Oxide (Mag-Ox) 400 mg PO BID [facility] Last Admin: 02/08/19 17:39 Dose: 400 mg Memantine (Namenda) 10 mg PO DAILY [facility] Last Admin: 02/08/19 09:27 Dose: 10 mg Lubiprostone [ Amitiza] 24 Mcg ( Home Med) 24 mcg PO BID [facility] Last Admin: 02/08/19 17:38 Dose: Not Given Ondansetron HCl (Zofran Inj) 4 mg IVP Q6H PRN PRN Reason: Nausea/Vomiting Last Admin: 02/08/19 14:13 Dose: 4 mg Spironolactone (Aldactone) 25 mg PO DAILY [facility] Last Admin: 02/08/19 09:27 Dose: 25 mg - Labs Labs: 02/08/19 14:00 02/08/19 14:00 PT 12.5 SECONDS (9.4-12.5) 02/06/19 15:17 INR 1.13 02/06/19 15:17 APTT 37.7 Seconds (26.9-38.3) 02/06/19 15:17 Assessment and Plan - Assessment and Plan (Free Text) Assessment: Pt seen and examined by me. I have reviewed the note of the medical staff assistant and I agree with it. I have discussed the assessment and plan with the resident. I have reviewed the medications and the last labs.
--- NOTE | 2019-02-08 12:08 | PN ---
DATE: 02/08/2019 SUBJECTIVE: The patient is seen earlier today in room 568, bed 2. OBJECTIVE: VITAL SIGNS: Temperature is 98, blood pressure is 120/60, respiratory rate 18. HEENT: Unremarkable. NECK: Supple. LUNGS: Have decreased breath sounds. HEART: Normal, S1 and S2. ABDOMEN: Soft, nontender. No organomegaly, no rebound or guarding. No masses. She does have some tenderness at her Port-A-Cath site on the right chest. LABORATORY EXAMINATION: Reveals the patient to have a white count of 3.8 and hemoglobin of 10, platelets of 108. Chemistries reveals a creatinine is 1.5 and urinalysis is noted. Microbiology reveals the blood cultures are negative and urine cultures contamination. The patient is on daptomycin, meropenem. Chest x-ray is negative. Blood cultures are negative thus far. ASSESSMENT AND PLAN: This is 78-year-old female with a left chest wall pacemaker and a right Port-A-Cath and history of cardiac catheterization admitted with weakness. Does not have any urinary symptoms, asymptomatic, bacteriuria; however, I am concerned about the tenderness at the right Port-A-Cath, although the blood cultures are negative. We will follow with you. Diego Kelley MD
[2019-02-08] MEDS: Digoxin 125 mcg (0.125 mg) Tab PO SCH (14:13)
[2019-02-08 14:15] VITALS: PULSE 80
[2019-02-08 14:25] LABS: BASO # 0.01 {null, K/mm3} (0.0-2.0); BASO % 0.3 % (0.0-3.0); EOS # 0.2 (0.0-0.7); EOS % 6.3 % (1.5-5.0); LYMPH # 0.6 (1.2-3.4); LYMPH % 18.7 % (22.0-35.0); MEAN CELL VOLUME 98.2 fl (80.0-105.0); MEAN CORPUSCULAR HEMOGLOBIN 31.9 pg (25.0-35.0); MEAN CORPUSCULAR HGB CONC 32.5 g/dl (31.0-37.0); MONO # 0.3 (0.1-0.6); MONO % 9.5 % (1.0-6.0); RBC 2.82 {null, 10^6/uL} (3.5-6.1); RED CELL DISTRIBUTION WIDTH 13.5 % (11.5-14.5); WHITE BLOOD COUNT 3.2 {null, 10^3/uL} (4.5-11.0)
[2019-02-08 14:43] LABS: ALB/GLOB RATIO 1.1 (1.1-1.8); ALBUMIN 3.2 g/dL (3.0-4.8)
[2019-02-08] MEDS: Magnesium Oxide 400 mg Tab UD PO SCH (17:39)
--- NOTE | 2019-02-08 21:56 | PN ---
DATE: 02/08/2019 SUBJECTIVE: The patient was seen and examined. I do agree with the note of the behavioral medical director. I was involved in the plan of care. The patient has ESBL in her urine. She is currently comfortable. She has not complained of any pain. She is on Aricept for her dementia. She is on aspirin daily. She is going to be on meropenem for antibiotics and she is on Synthroid for hypothyroidism. She is being followed by Dr. Kelley from Infectious Disease. The patient has a Port-A-Cath. Joaquín Lincoln MD
[2019-02-09] MEDS: Meropenem IV 1 gm in NS 1 GM/50 ML BAG IVPB SCH ×2 (05:56→13:20)
[2019-02-09] MEDS: Levothyroxine 100 MCG TAB PO SCH (05:56)
[2019-02-09 08:25] LABS: BASO # 0.01 {null, K/mm3} (0.0-2.0); BASO % 0.3 % (0.0-3.0); EOS # 0.3 (0.0-0.7); EOS % 7.1 % (1.5-5.0); HEMOGLOBIN 9.2 g/dL (12.0-16.0); LYMPH # 0.8 (1.2-3.4); LYMPH % 21.9 % (22.0-35.0); MEAN CELL VOLUME 97.9 fl (80.0-105.0); MEAN CORPUSCULAR HEMOGLOBIN 32.6 pg (25.0-35.0); MEAN CORPUSCULAR HGB CONC 33.3 g/dl (31.0-37.0); MEAN PLATELET VOLUME 10.2 fl (7.0-11.0); MONO # 0.2 (0.1-0.6); MONO % 5.5 % (1.0-6.0); RBC 2.82 {null, 10^6/uL} (3.5-6.1); RED CELL DISTRIBUTION WIDTH 13.6 % (11.5-14.5); WHITE BLOOD COUNT 3.7 {null, 10^3/uL} (4.5-11.0)
[2019-02-09 08:42] LABS: ALB/GLOB RATIO 1.1 (1.1-1.8); ALBUMIN 3.2 g/dL (3.0-4.8); CALCIUM 9.1 mg/dL (8.4-10.5)
--- NOTE | 2019-02-09 08:51 | CP.PCM.PN ---
<Leslie Morgan - Last Filed: 02/09/19 08:48> Subjective - Date & Time of Evaluation Date of Evaluation: 02/09/19 Time of Evaluation: 09:25 - Subjective Subjective: Progress Note for Dr. Lincoln Patient seen and examined at bedside. No acute complaints at this time, however does note mild abdominal soreness and pain. patient denied fever, chills, shortness of breath, chest pains, rashes, nausea, vomiting, dysuria, diarrhea, or constipation Objective - Vital Signs/Intake and Output Vital Signs (last 24 hours): Temp Pulse Resp BP Pulse Ox 98.5 F 80 18 103/43 L 97 02/09/19 06:00 02/09/19 06:00 02/09/19 06:00 02/09/19 06:00 02/09/19 06:00 Intake and Output: 02/09/19 02/09/19 06:59 18:59 Intake Total 420 Balance 420 - Medications Medications: Current Medications Aspirin (Ecotrin) 81 mg PO DAILY [facility] Last Admin: 02/08/19 09:27 Dose: 81 mg Carvedilol (Coreg) 3.125 mg PO DAILY [facility] Last Admin: 02/08/19 09:27 Dose: 3.125 mg Digoxin (Digoxin) 0.125 mg PO 1400 [facility] Last Admin: 02/08/19 14:13 Dose: 0.125 mg Donepezil HCl (Aricept) 10 mg PO DAILY [facility] Last Admin: 02/08/19 09:27 Dose: 10 mg Escitalopram Oxalate (Lexapro) 5 mg PO DAILY [facility] Last Admin: 02/08/19 14:13 Dose: 5 mg Daptomycin 290 mg/ Sodium (Chloride) 100 mls @ 200 mls/hr IV Q24H [facility]; Protocol Stop: 02/16/19 13:31 Last Admin: 02/08/19 14:15 Dose: 200 mls/hr Meropenem (Merrem Iv 1 Gm Premix) 1 gm in 50 mls @ 100 mls/hr IVPB Q8 [facility]; Protocol Stop: 02/16/19 22:01 Last Admin: 02/09/19 05:56 Dose: 100 mls/hr Levothyroxine Sodium (Synthroid) 100 mcg PO 0600 [facility] Last Admin: 02/09/19 05:56 Dose: 100 mcg Lisinopril (Zestril) 2.5 mg PO DAILY [facility] Last Admin: 02/08/19 14:13 Dose: 2.5 mg Magnesium Oxide (Mag-Ox) 400 mg PO BID [facility] Last Admin: 02/08/19 17:39 Dose: 400 mg Memantine (Namenda) 10 mg PO DAILY [facility] Last Admin: 02/08/19 09:27 Dose: 10 mg Lubiprostone [ Amitiza] 24 Mcg ( Home Med) 24 mcg PO BID [facility] Last Admin: 02/08/19 17:38 Dose: Not Given Ondansetron HCl (Zofran Inj) 4 mg IVP Q6H PRN PRN Reason: Nausea/Vomiting Last Admin: 02/08/19 14:13 Dose: 4 mg Spironolactone (Aldactone) 25 mg PO DAILY [facility] Last Admin: 02/08/19 09:27 Dose: 25 mg - Labs Labs: 02/09/19 08:00 02/09/19 08:00 PT 12.5 SECONDS (9.4-12.5) 02/06/19 15:17 INR 1.13 02/06/19 15:17 APTT 37.7 Seconds (26.9-38.3) 02/06/19 15:17 - Constitutional Appears: No Acute Distress - Head Exam Head Exam: ATRAUMATIC, NORMAL INSPECTION, NORMOCEPHALIC - Eye Exam Eye Exam: EOMI, Normal appearance, PERRL Pupil Exam: NORMAL ACCOMODATION, PERRL - ENT Exam ENT Exam: Mucous Membranes Moist, Normal Exam - Respiratory Exam Respiratory Exam: Clear to Ausculation Bilateral, NORMAL BREATHING PATTERN Additional comments: Rt vanessa cath left AICD/pacemaker - Cardiovascular Exam Cardiovascular Exam: REGULAR RHYTHM, +S1, +S2. absent: Murmur - GI/Abdominal Exam GI & Abdominal Exam: Soft, Normal Bowel Sounds. absent: Tenderness - Neurological Exam Neurological Exam: Alert, Awake, CN II-XII Intact, Oriented x3 - Psychiatric Exam Psychiatric exam: Normal Affect, Normal Mood - Skin Skin Exam: Dry, Intact, Normal Color, Warm Assessment and Plan - Assessment and Plan (Free Text) Assessment: Abdominal pain pancytopenia with possible rt port a cath infx, bCx negative asymptomatic bacteruira ESBL UTI COPD GEORGE on CKD3 CHF s/p AICD and pacemaker Iron def anemia, monthly infusion by port-a cath hypothyroidism s/p throidectomy cva with residual left sided weakness DM2 Mechanical mitral valve kyphoplasty atrophy of right kidney Hx ESBL Plan: Patient is comfortable. Will order CT abdomen to evaluate abdominal pain. patient started on merrem and dapto for ESBL UTI and possible rt port a cath infx. Will clarify abx duration. ID consulted, will appreciate further recommendations. CXR was reviewed, UA/UCx reviewed. Patient to continue synthroid for hypothyroidism, lisinopril for HTN, amitiza for constipation, asa for cad, spironolactone and dogixin for chf, aricept, memantine for dementia and lexapro for depression. Seen reviewed and discussed with Dr. Lincoln <Joaquín Lincoln S - Last Filed: 02/09/19 16:27> Objective - Vital Signs/Intake and Output Vital Signs (last 24 hours): Temp Pulse Resp BP Pulse Ox 98.5 F 81 18 116/61 97 02/09/19 06:00 02/09/19 14:17 02/09/19 06:00 02/09/19 10:05 02/09/19 06:00 Intake and Output: 02/09/19 02/09/19 06:59 18:59 Intake Total 420 Balance 420 - Medications Medications: Current Medications Albuterol/Ipratropium (Duoneb 3 Mg/0.5 Mg (3 Ml) Ud) 3 ml IH Q2H PRN PRN Reason: Shortness of Breath Last Admin: 02/09/19 14:17 Dose: 3 ml Aspirin (Ecotrin) 81 mg PO DAILY [facility] Last Admin: 02/09/19 10:04 Dose: 81 mg Carvedilol (Coreg) 3.125 mg PO DAILY [facility] Last Admin: 02/09/19 10:03 Dose: 3.125 mg Digoxin (Digoxin) 0.125 mg PO 1400 [facility] Last Admin: 02/09/19 13:25 Dose: 0.125 mg Donepezil HCl (Aricept) 10 mg PO DAILY [facility] Last Admin: 02/09/19 10:03 Dose: 10 mg Escitalopram Oxalate (Lexapro) 5 mg PO DAILY [facility] Last Admin: 02/09/19 10:04 Dose: 5 mg Sodium Chloride (Sodium Chloride 0.9%) 250 mls @ 75 mls/hr IV .Q3H20M [facility] Levothyroxine Sodium (Synthroid) 100 mcg PO 0600 [facility] Last Admin: 02/09/19 05:56 Dose: 100 mcg Lisinopril (Zestril) 2.5 mg PO DAILY [facility] Last Admin: 02/09/19 10:05 Dose: 2.5 mg Magnesium Oxide (Mag-Ox) 400 mg PO BID [facility] Last Admin: 02/09/19 10:04 Dose: 400 mg Memantine (Namenda) 10 mg PO DAILY [facility] Last Admin: 02/09/19 10:04 Dose: 10 mg Lubiprostone [ Amitiza] 24 Mcg ( Home Med) 24 mcg PO BID [facility] Last Admin: 02/09/19 10:20 Dose: Not Given Ondansetron HCl (Zofran Inj) 4 mg IVP Q4H PRN PRN Reason: Nausea/Vomiting Spironolactone (Aldactone) 25 mg PO DAILY [facility] Last Admin: 02/09/19 10:03 Dose: 25 mg - Labs Labs: 02/09/19 08:00 02/09/19 08:00 PT 12.5 SECONDS (9.4-12.5) 02/06/19 15:17 INR 1.13 02/06/19 15:17 APTT 37.7 Seconds (26.9-38.3) 02/06/19 15:17 Assessment and Plan - Assessment and Plan (Free Text) Assessment: Pt seen and examined by me. I have reviewed the note of the medical fee clerk and I agree with it. I have discussed the assessment and plan with the resident. I have reviewed the medications and the last labs.
[2019-02-09] MEDS: Magnesium Oxide 400 mg Tab UD PO SCH ×2 (10:04→17:36)
--- NOTE | 2019-02-09 10:18 | CT ---
Date of service: 02/09/2019 PROCEDURE: CT Abdomen and Pelvis without intravenous contrast HISTORY: abdominal pain COMPARISON: 02/01/2019 TECHNIQUE: Without contrast.. Contrast dose: Radiation dose: Total exam DLP = 200.0 mGy-cm. This CT exam was performed using one or more of the following dose reduction techniques: Automated exposure control, adjustment of the mA and/or kV according to patient size, and/or use of iterative reconstruction technique. FINDINGS: LOWER THORAX: Unremarkable. LIVER: Unremarkable. No gross lesion or ductal dilatation. GALLBLADDER AND BILE DUCTS: Unremarkable. PANCREAS: Unremarkable. No gross lesion or ductal dilatation. SPLEEN: Unremarkable. ADRENALS: Unremarkable. No mass. KIDNEYS AND URETERS: There is atrophy of the right kidney VASCULATURE: Unremarkable. No aortic aneurysm. Extensive aortic calcification BOWEL: Unremarkable. No obstruction. No gross mural thickening. APPENDIX: Unremarkable. Normal appendix. PERITONEUM: Unremarkable. No free fluid. No free air. LYMPH NODES: Unremarkable. No enlarged lymph nodes. BLADDER: Unremarkable. REPRODUCTIVE: Unremarkable. BONES: No acute fracture. OTHER FINDINGS: None. IMPRESSION: No acute intra-abdominal findings
[2019-02-09] MEDS: LUBIPROSTONE 24 MCG PO SCH ×2 (10:20→21:34)
[2019-02-09] MEDS: Digoxin 125 mcg (0.125 mg) Tab PO SCH (13:25)
[2019-02-09] MEDS ORDERED: Alum-Mag Hydrox-Simethicone Susp (30 mL) PO ONE (14:04)
[2019-02-09] MEDS: Albuterol-Ipratrop 3 mg / 0.5 (3 ml) UD IH PRN (14:17)
[2019-02-09] MEDS ORDERED: Sodium Chloride 0.9% 250 ML IV SCH (14:30)
--- NOTE | 2019-02-09 20:23 | PN ---
DATE: 02/09/2019 SUBJECTIVE: The patient was seen and examined. I do agree with the note of the medical observer. I was involved in the plan of care. The patient is currently comfortable. She has ESBL in her urine. She is on daptomycin because she has a Port-A-Cath. She is being followed by Infectious Disease. The patient has hypothyroidism and is on replacement. She has hypertension. She is being treated for her hypertension with lisinopril. She is on IV fluids. The patient is on Synthroid for her hypothyroidism. She is on magnesium replacement. She is on memantine for dementia. She is on donepezil as well. She is going to continue with her current IV antibiotics. ID is following the case. We will await further input regarding any further intervention. She had a CT of the abdomen and pelvis done that showed no acute abdominal findings. Joaquín Lincoln MD
--- NOTE | 2019-02-09 23:44 | PN ---
DATE: 02/09/2019 SUBJECTIVE: The patient is in bed, in no acute distress, nontoxic. PHYSICAL EXAMINATION: VITAL SIGNS: Temperature is 98, blood pressure is 103/40, respiratory rate of 18, heart rate of 80. HEENT: Unremarkable. NECK: Supple. LUNGS: Have decreased breath sounds. HEART: Normal S1, S2. ABDOMEN: Soft, nontender. LABORATORY DATA: Reveals a white count of 3.7, hemoglobin 9, BUN of 25, creatinine of 1.2. Urinalysis is noted. All the cultures are negative, blood cultures, negative urine cultures. The patient also had a CAT scan of the abdomen and pelvis, which shows no acute findings. A chest x-ray which was negative. Dr. Lincoln's note is reviewed. ASSESSMENT AND PLAN: This is a 78-year-old, left chest wall pacemaker, right Port-A-Cath, history of cardiac catheterization, admitted with weakness, and examination of the Port-A-Cath, no evidence of infection at this point as the patient does have asymptomatic bacteriuria and blood cultures are negative. We will discontinue the antibiotics. No further antibiotics necessary. Diego Kelley MD
[2019-02-10] MEDS: Levothyroxine 100 MCG TAB PO SCH (06:00)
[2019-02-10] MEDS: Albuterol-Ipratrop 3 mg / 0.5 (3 ml) UD IH PRN (07:23)
[2019-02-10 07:40] VITALS: BP 136/68; PULSE 80; TEMP 97.8; O2SAT 96
[2019-02-10 08:33] LABS: BASO # 0.01 {null, K/mm3} (0.0-2.0); BASO % 0.3 % (0.0-3.0); EOS # 0.2 (0.0-0.7); EOS % 6.2 % (1.5-5.0); HEMOGLOBIN 9.5 g/dL (12.0-16.0); LYMPH # 0.6 (1.2-3.4); LYMPH % 20.6 % (22.0-35.0); MEAN CELL VOLUME 98.6 fl (80.0-105.0); MEAN CORPUSCULAR HGB CONC 33.5 g/dl (31.0-37.0); MEAN PLATELET VOLUME 9.9 fl (7.0-11.0); MONO # 0.2 (0.1-0.6); MONO % 7.2 % (1.0-6.0); RBC 2.88 {null, 10^6/uL} (3.5-6.1); RED CELL DISTRIBUTION WIDTH 13.5 % (11.5-14.5); WHITE BLOOD COUNT 2.9 {null, 10^3/uL} (4.5-11.0)
[2019-02-10 08:45] LABS: IRON 50 ug/dL (45-180)
[2019-02-10 08:54] LABS: % IRON SATURATION 21 % (20-55); ALB/GLOB RATIO 1.2 (1.1-1.8); ALBUMIN 3.3 g/dL (3.0-4.8); CALCIUM 9.3 mg/dL (8.4-10.5); TOTAL IRON BINDING CAPACITY 234 ug/dL (265-497)
[2019-02-10] MEDS: Magnesium Oxide 400 mg Tab UD PO SCH (09:13)
[2019-02-10] MEDS: LUBIPROSTONE 24 MCG PO SCH (11:03)
--- NOTE | 2019-02-10 11:35 | CP.PCM.DIS ---
<Leslie Morgan - Last Filed: 02/10/19 11:31> Provider - Provider Date of Admission: 02/06/19 14:53 Attending physician: Joaquín Lincoln MD Primary care physician: Christian Oliveros MD Consults: 02/06/19 15:30 Physician Consult Stat Comment: Consulting Provider: Diego Kelley Consulting Physician: Diego Kelley Reason for Consult: UTI 02/06/19 23:21 Case Management Referral Routine Comment: NEEDS ASSISTANCE AT HOME. Physician Instructions: Reason For Exam: EVALUATION Reason for Referral: Sanitation Manager Eval Diabetic Education Referral Routine Comment: Physician Instructions: Reason For Exam: EVALUATION Inpatient ETHNOGRAPHER Core Measures Referral Routine Comment: Physician Instructions: Reason For Exam: EVALUATION Transition In Care/Readmission Reduction Routine Comment: Physician Instructions: Reason For Exam: EVALUATION 02/06/19 23:26 Nursing Referral for Palliative Care Routine Comment: Physician Instructions: Reason For Exam: EVALUATION Social Work Referral Routine Comment: NEEDS ASSISTANCE AT HOME Physician Instructions: Reason For Exam: EVALUATION 02/07/19 12:24 Diabetic Education Referral Routine Comment: Physician Instructions: Reason For Exam: EVALUATION Time Spent in preparation of Discharge (in minutes): 45 Hospital Course - Lab Results Lab Results: Micro Results 02/06/19 13:05 Blood Blood Culture - Preliminary NO GROWTH AFTER 3 DAYS 02/06/19 12:00 Blood Blood Culture - Preliminary NO GROWTH AFTER 3 DAYS 02/06/19 12:00 Urine Random Urine Culture - Final <10,000 CFU/ML. MULTIPLE SPECIES. PROBABLE CONTAMINATION. Most Recent Lab Values WBC 2.9 10^3/uL (4.5-11.0) L D 02/10/19 05:50 RBC 2.88 10^6/uL (3.5-6.1) L 02/10/19 05:50 Hgb 9.5 g/dL (12.0-16.0) L 02/10/19 05:50 Hct 28.4 % (36.0-48.0) L 02/10/19 05:50 MCV 98.6 fl (80.0-105.0) 02/10/19 05:50 MCH 33.0 pg (25.0-35.0) 02/10/19 05:50 MCHC 33.5 g/dl (31.0-37.0) 02/10/19 05:50 RDW 13.5 % (11.5-14.5) 02/10/19 05:50 Plt Count 103 10^3/uL (120.0-450.0) L 02/10/19 05:50 MPV 9.9 fl (7.0-11.0) 02/10/19 05:50 Neut % (Auto) 65.7 % (50.0-68.0) 02/10/19 05:50 Lymph % (Auto) 20.6 % (22.0-35.0) L 02/10/19 05:50 [place] % (Auto) 7.2 % (1.0-6.0) H 02/10/19 05:50 Eos % (Auto) 6.2 % (1.5-5.0) H 02/10/19 05:50 Baso % (Auto) 0.3 % (0.0-3.0) 02/10/19 05:50 Lymph # (Auto) 0.6 (1.2-3.4) L 02/10/19 05:50 [place] # (Auto) 0.2 (0.1-0.6) 02/10/19 05:50 Eos # (Auto) 0.2 (0.0-0.7) 02/10/19 05:50 Baso # (Auto) 0.01 K/mm3 (0.0-2.0) 02/10/19 05:50 Absolute Neuts (auto) 1.91 (1.4-6.5) 02/10/19 05:50 PT 12.5 SECONDS (9.4-12.5) 02/06/19 15:17 INR 1.13 02/06/19 15:17 APTT 37.7 Seconds (26.9-38.3) 02/06/19 15:17 Sodium 138 mmol/L (132-148) 02/10/19 05:50 Potassium 5.7 mmol/L (3.6-5.0) H* 02/10/19 05:50 Chloride 105 mmol/L (98-107) 02/10/19 05:50 Carbon Dioxide 30 mmol/L (21-33) 02/10/19 05:50 Anion Gap 9 (10-20) L 02/10/19 05:50 BUN 22 mg/dL (7-21) H 02/10/19 05:50 Creatinine 1.2 mg/dl (0.7-1.2) 02/10/19 05:50 Est GFR ( Amer) 53 02/10/19 05:50 Est GFR (Non-Af Amer) 44 02/10/19 05:50 POC Glucose (mg/dL) 99 mg/dL (65-110) 02/06/19 16:52 Random Glucose 78 mg/dL (70-110) 02/10/19 05:50 Calcium 9.3 mg/dL (8.4-10.5) 02/10/19 05:50 Phosphorus 2.5 mg/dL (2.5-4.5) 02/10/19 05:50 Magnesium 1.8 mg/dL (1.7-2.2) 02/10/19 05:50 Iron 50 ug/dL (45-180) 02/10/19 05:50 TIBC 234 ug/dL (265-497) L 02/10/19 05:50 % Saturation 21 % (20-55) 02/10/19 05:50 Total Bilirubin 0.6 mg/dL (0.2-1.3) 02/10/19 05:50 AST 27 U/L (14-36) 02/10/19 05:50 ALT 15 U/L (7-56) 02/10/19 05:50 Alkaline Phosphatase 112 U/L (38-126) 02/10/19 05:50 NT-Pro-B Natriuret Pep 6610 pg/mL (0-450) H 02/06/19 12:00 Total Protein 6.2 g/dL (5.8-8.3) 02/10/19 05:50 Albumin 3.3 g/dL (3.0-4.8) 02/10/19 05:50 Globulin 2.8 gm/dL 02/10/19 05:50 Albumin/Globulin Ratio 1.2 (1.1-1.8) 02/10/19 05:50 TSH 3rd Generation 0.95 mIU/mL (0.46-4.68) 02/09/19 14:10 Urine Color Yellow (YELLOW) 02/06/19 12:00 Urine Appearance Sl cloudy (CLEAR) 02/06/19 12:00 Urine pH 6.0 (4.7-8.0) 02/06/19 12:00 Ur Specific [place] 1.020 (1.005-1.035) 02/06/19 12:00 Urine Protein Negative mg/dL (<30 mg/dL) 02/06/19 12:00 Urine Glucose (UA) Negative mg/dL (NEGATIVE) 02/06/19 12:00 Urine Ketones Negative mg/dL (NEGATIVE) 02/06/19 12:00 Urine Blood Negative (NEGATIVE) 02/06/19 12:00 Urine Nitrate Negative (NEGATIVE) 02/06/19 12:00 Urine Bilirubin Negative (NEGATIVE) 02/06/19 12:00 Urine Urobilinogen 0.2 E.U./dL (<1 E.U./dL) 02/06/19 12:00 Ur Leukocyte Esterase Small Ignacio/uL (NEGATIVE) H 02/06/19 12:00 Urine RBC None /hpf (0-2) 02/06/19 12:00 Urine WBC 5 - 10 /hpf (0-6) H 02/06/19 12:00 Ur Epithelial Cells 4 - 5 /hpf (0-5) 02/06/19 12:00 Urine Bacteria Trace /hpf (NONE) 02/06/19 12:00 - Hospital Course Hospital Course: HPI: 78 F with a PMHx of COPD, CHF, AICD & pacemaker, Iron deficiency anemia with monthly infusions by vanessa cath, CAD s/p stents, cva with residual left sided weakness, DM2, mechanical mitral valve, CKD 3, atrophy of right kideny, and hx of ESBL [place] [facility] [place] for IV antibiotics for urinary tract infection. ID was consulted, Dr. Kelley. Patient was started on merrem and dapto for ESBL UTI and possible rt port a cath infx. Cultures have been negative and subsequently antibiotics were discontinued. Patient with Asymptomatic bacteruria. Patient had abdominal soreness evaluated with a CT abdomen that was reviewed and did not demonstrate any acute intrabdominal pathology, and her pain has improved. CXR was reviewed, UA/UCx reviewed. Patient to continue synthroid for hypothyroidism, lisinopril for HTN, amitiza for constipation, asa for cad, spironolactone and dogixin for chf, aricept, memantine for dementia and lexapro for depression. Patient was hyperkalemic, kayexelate administered. Discharge Exam - Head Exam Head Exam: ATRAUMATIC, NORMAL INSPECTION, NORMOCEPHALIC - Eye Exam Eye Exam: EOMI, Normal appearance Pupil Exam: NORMAL ACCOMODATION, PERRL - ENT Exam ENT Exam: Mucous Membranes Moist - Respiratory Exam Respiratory Exam: Decreased Breath Sounds, Clear to PA & Lateral, NORMAL BREATHING PATTERN, UNREMARKABLE - Cardiovascular Exam Cardiovascular Exam: REGULAR RHYTHM, +S1, +S2 - GI/Abdominal Exam GI & Abdominal Exam: Normal Bowel Sounds, Soft. absent: Tenderness - Neurological Exam Neurological exam: Alert, CN II-XII Intact, Normal Gait, Oriented x3, Reflexes Normal - Psychiatric Exam Psychiatric exam: Normal Affect, Normal Mood - Skin Skin Exam: Dry, Intact, Normal Color, Warm Discharge Plan - Follow Up Plan Condition: FAIR Disposition: HOME/ ROUTINE Instructions: Heart Healthy Diet, Urinary Tract Infection, Adult (DC), Preventing Falls, Extended-Spectrum Beta Lactamase Infection Additional Instructions: PLEASE FOLLOW UP WITH PRIMARY PHYSICIAN CALL AND MAKE APPOINTMENT No new medications to go home with, please follow up with PMD within 1 week Referrals: Christian Oliveros MD [Primary Care Provider] - <Joaquín Lincoln - Last Filed: 02/10/19 12:52> Provider - Provider Date of Admission: 02/06/19 14:53 Attending physician: Joaquín Lincoln MD Primary care physician: Christian Oliveros MD Consults: 02/06/19 15:30 Physician Consult Stat Comment: Consulting Provider: Diego Kelley Consulting Physician: Diego Kelley Reason for Consult: UTI 02/06/19 23:21 Case Management Referral Routine Comment: NEEDS ASSISTANCE AT HOME. Physician Instructions: Reason For Exam: EVALUATION Reason for Referral: Sanitation Manager Eval Diabetic Education Referral Routine Comment: Physician Instructions: Reason For Exam: EVALUATION Inpatient ETHNOGRAPHER Core Measures Referral Routine Comment: Physician Instructions: Reason For Exam: EVALUATION Transition In Care/Readmission Reduction Routine Comment: Physician Instructions: Reason For Exam: EVALUATION 02/06/19 23:26 Nursing Referral for Palliative Care Routine Comment: Physician Instructions: Reason For Exam: EVALUATION Social Work Referral Routine Comment: NEEDS ASSISTANCE AT HOME Physician Instructions: Reason For Exam: EVALUATION 02/07/19 12:24 Diabetic Education Referral Routine Comment: Physician Instructions: Reason For Exam: EVALUATION Hospital Course - Lab Results Lab Results: Micro Results 02/06/19 12:00 Blood Blood Culture - Preliminary NO GROWTH AFTER 4 DAYS 02/06/19 13:05 Blood Blood Culture - Preliminary NO GROWTH AFTER 3 DAYS 02/06/19 12:00 Urine Random Urine Culture - Final <10,000 CFU/ML. MULTIPLE SPECIES. PROBABLE CONTAMINATION. Most Recent Lab Values WBC 2.9 10^3/uL (4.5-11.0) L D 02/10/19 05:50 RBC 2.88 10^6/uL (3.5-6.1) L 02/10/19 05:50 Hgb 9.5 g/dL (12.0-16.0) L 02/10/19 05:50 Hct 28.4 % (36.0-48.0) L 02/10/19 05:50 MCV 98.6 fl (80.0-105.0) 02/10/19 05:50 MCH 33.0 pg (25.0-35.0) 02/10/19 05:50 MCHC 33.5 g/dl (31.0-37.0) 02/10/19 05:50 RDW 13.5 % (11.5-14.5) 02/10/19 05:50 Plt Count 103 10^3/uL (120.0-450.0) L 02/10/19 05:50 MPV 9.9 fl (7.0-11.0) 02/10/19 05:50 Neut % (Auto) 65.7 % (50.0-68.0) 02/10/19 05:50 Lymph % (Auto) 20.6 % (22.0-35.0) L 02/10/19 05:50 [place] % (Auto) 7.2 % (1.0-6.0) H 02/10/19 05:50 Eos % (Auto) 6.2 % (1.5-5.0) H 02/10/19 05:50 Baso % (Auto) 0.3 % (0.0-3.0) 02/10/19 05:50 Lymph # (Auto) 0.6 (1.2-3.4) L 02/10/19 05:50 [place] # (Auto) 0.2 (0.1-0.6) 02/10/19 05:50 Eos # (Auto) 0.2 (0.0-0.7) 02/10/19 05:50 Baso # (Auto) 0.01 K/mm3 (0.0-2.0) 02/10/19 05:50 Absolute Neuts (auto) 1.91 (1.4-6.5) 02/10/19 05:50 PT 12.5 SECONDS (9.4-12.5) 02/06/19 15:17 INR 1.13 02/06/19 15:17 APTT 37.7 Seconds (26.9-38.3) 02/06/19 15:17 Sodium 138 mmol/L (132-148) 02/10/19 05:50 Potassium 5.7 mmol/L (3.6-5.0) H* 02/10/19 05:50 Chloride 105 mmol/L (98-107) 02/10/19 05:50 Carbon Dioxide 30 mmol/L (21-33) 02/10/19 05:50 Anion Gap 9 (10-20) L 02/10/19 05:50 BUN 22 mg/dL (7-21) H 02/10/19 05:50 Creatinine 1.2 mg/dl (0.7-1.2) 02/10/19 05:50 Est GFR ( Amer) 53 02/10/19 05:50 Est GFR (Non-Af Amer) 44 02/10/19 05:50 POC Glucose (mg/dL) 99 mg/dL (65-110) 02/06/19 16:52 Random Glucose 78 mg/dL (70-110) 02/10/19 05:50 Calcium 9.3 mg/dL (8.4-10.5) 02/10/19 05:50 Phosphorus 2.5 mg/dL (2.5-4.5) 02/10/19 05:50 Magnesium 1.8 mg/dL (1.7-2.2) 02/10/19 05:50 Iron 50 ug/dL (45-180) 02/10/19 05:50 TIBC 234 ug/dL (265-497) L 02/10/19 05:50 % Saturation 21 % (20-55) 02/10/19 05:50 Ferritin 791.0 ng/mL 02/10/19 05:50 Total Bilirubin 0.6 mg/dL (0.2-1.3) 02/10/19 05:50 AST 27 U/L (14-36) 02/10/19 05:50 ALT 15 U/L (7-56) 02/10/19 05:50 Alkaline Phosphatase 112 U/L (38-126) 02/10/19 05:50 NT-Pro-B Natriuret Pep 6610 pg/mL (0-450) H 02/06/19 12:00 Total Protein 6.2 g/dL (5.8-8.3) 02/10/19 05:50 Albumin 3.3 g/dL (3.0-4.8) 02/10/19 05:50 Globulin 2.8 gm/dL 02/10/19 05:50 Albumin/Globulin Ratio 1.2 (1.1-1.8) 02/10/19 05:50 TSH 3rd Generation 0.95 mIU/mL (0.46-4.68) 02/09/19 14:10 Urine Color Yellow (YELLOW) 02/06/19 12:00 Urine Appearance Sl cloudy (CLEAR) 02/06/19 12:00 Urine pH 6.0 (4.7-8.0) 02/06/19 12:00 Ur Specific [place] 1.020 (1.005-1.035) 02/06/19 12:00 Urine Protein Negative mg/dL (<30 mg/dL) 02/06/19 12:00 Urine Glucose (UA) Negative mg/dL (NEGATIVE) 02/06/19 12:00 Urine Ketones Negative mg/dL (NEGATIVE) 02/06/19 12:00 Urine Blood Negative (NEGATIVE) 02/06/19 12:00 Urine Nitrate Negative (NEGATIVE) 02/06/19 12:00 Urine Bilirubin Negative (NEGATIVE) 02/06/19 12:00 Urine Urobilinogen 0.2 E.U./dL (<1 E.U./dL) 02/06/19 12:00 Ur Leukocyte Esterase Small Ignacio/uL (NEGATIVE) H 02/06/19 12:00 Urine RBC None /hpf (0-2) 02/06/19 12:00 Urine WBC 5 - 10 /hpf (0-6) H 02/06/19 12:00 Ur Epithelial Cells 4 - 5 /hpf (0-5) 02/06/19 12:00 Urine Bacteria Trace /hpf (NONE) 02/06/19 12:00 HIV 1&2 Ag/Ab, 4th Gen Nonreactive (Nonreactive) 02/08/19 07:10 - Hospital Course Hospital Course: Patient was seen and examined by me. I have reviewed the note of the medical supply technician and have gone over the plan of care. I agree with the note. I have reviewed the medications and the last labs.
--- NOTE | 2019-02-10 12:22 | RAD ---
Date of service: 02/10/2019 HISTORY: sob COMPARISON: 02/06/2019 TECHNIQUE: 1 view obtained. FINDINGS: LUNGS: No active pulmonary disease. PLEURA: No significant pleural effusion identified, no pneumothorax apparent. CARDIOVASCULAR: Aortic calcification Moderate cardiomegaly no pulmonary vascular congestion. OSSEOUS STRUCTURES: Sternal wires VISUALIZED UPPER ABDOMEN: Normal. OTHER FINDINGS: Pacemaker IMPRESSION: No active disease.
--- NOTE | 2019-02-11 02:38 | PN ---
DATE: 02/10/2019 SUBJECTIVE: The patient is seen in bed, seen early this morning. No fevers. No chills. PHYSICAL EXAMINATION: VITAL SIGNS: Temperature is 97, blood pressure is 130/60, respiratory rate of 18. HEENT: Unremarkable. NECK: Supple. LUNGS: Have decreased breath sounds. HEART: Normal S1, S2. ABDOMEN: Soft. LABORATORY EXAMINATION: Reveals a white count of 2.9, hemoglobin of 9. Chemistries are noted. Urinalysis is noted. Serology is noted. Microbiology reveals the blood cultures are negative. Chest x-ray is noted. ASSESSMENT AND PLAN: This is a 78-year-old female who was seen early this morning in room 568, bed 2. Doing much better. She has had no fever, no chills. She has left chest wall pacemaker, right Port-A-Cath, history of cardiac catheterization. Admitted with just weakness and blood cultures negative and antibiotics off for 24 hours now. Still no fevers and no evidence of infection based on cultures. Diego Kelley MD
--- NOTE | 2019-02-11 04:37 | DS ---
HOSPITAL COURSE: The patient was seen and examined. I do agree with the note of the medical technologist. I was involved in the plan of care. The patient had a chest x-ray that shows no active disease. She finished her course of IV antibiotics. She has ESBL in her urine. She is going to be discharged home. She is hypokalemic and we will give her Kayexalate. She is Aldactone, I will discontinue her Aldactone. She is going to follow up with her primary care doctor as an outpatient. She is currently eating well and has no other complaints. Joaquín Lincoln MD
== END 2019-02-10 14:22 | disposition home or self-care (01) | DRG 690 ==
LOC: ED 10:32 → ERH 14:53 → 5RNO 19:27
PROVIDERS: ADMIT Internal Medicine Nephrology; ATTEND Internal Medicine Nephrology
DX: N39.0 Urinary tract infection, site not specified (principal); D61.818 Other pancytopenia; I69.354 Hemiplegia and hemiparesis following cerebral infarction affecting left non-dominant side; I13.0 Hypertensive heart and chronic kidney disease with heart failure and stage 1 through stage 4 chronic kidney disease, or unspecified chronic kidney disease; N17.9 Acute kidney failure, unspecified; D68.59 Other primary thrombophilia; N18.3 Chronic kidney disease, stage 3 (moderate); Z16.12 Extended spectrum beta lactamase (ESBL) resistance; J44.9 Chronic obstructive pulmonary disease, unspecified; I50.9 Heart failure, unspecified; F41.9 Anxiety disorder, unspecified; E11.22 Type 2 diabetes mellitus with diabetic chronic kidney disease; D50.9 Iron deficiency anemia, unspecified; I25.10 Atherosclerotic heart disease of native coronary artery without angina pectoris; N26.1 Atrophy of kidney (terminal); F03.90 Unspecified dementia, unspecified severity, without behavioral disturbance, psychotic disturbance, mood disturbance, and anxiety; F32.9 Major depressive disorder, single episode, unspecified; E89.0 Postprocedural hypothyroidism; I25.2 Old myocardial infarction; K59.00 Constipation, unspecified; E87.5 Hyperkalemia; Z95.810 Presence of automatic (implantable) cardiac defibrillator; Z95.5 Presence of coronary angioplasty implant and graft; Z95.2 Presence of prosthetic heart valve; Z79.01 Long term (current) use of anticoagulants; Z79.82 Long term (current) use of aspirin; Z87.891 Personal history of nicotine dependence

== ENCOUNTER 2019-02-28 10:06 | Inpatient (IN) | payer MEDICARE, MEDICAID ==
--- NOTE | 2019-02-28 10:14 | ED PDOC ---
Arrival/HPI - General Historian: Patient, Family - History of Present Illness Narrative History of Present Illness (Text): 02/28/19 10:33 78 year female, with a past medical history of CAD s/p stenting and PPM, s/p CABG and mechanical mitral valve, DM II, HTN, Hypothyroid, COPD, GI bleed, anemia, and anxiety/depression, who presents to the emergency department complaining of generalized weakness. As per family, patient was told she needed blood transfusion due to low blood count and was asked to come to the ER by Dr. Moya. Family reports patient's last blood transfusion was about 3 months ago. Patient endorses dizziness when attempting to walk, and abdominal pain. Patient has been to the ER before for similar symptoms, but she states it is now worsened. She denies any fever, nausea, vomiting, headache, chest pain, shortness of breath, or any other somatic complaints. PCP: Dr. Lazaro Time/Duration: < month Symptom Onset: Gradual Symptom Course: Unchanged Activities at Onset: Light Context: Home Past Medical History - Provider Review Nursing Documentation Reviewed: Yes - Past History Past History: No Previous - Infectious Disease Hx of Infectious Diseases: None - Tetanus Immunization Tetanus Immunization: Unknown - Cardiac Hx Cardiac Disorders: Yes (5 stents) Hx Congestive Heart Failure: Yes Hx Hypertension: Yes Hx Internal Defibrillator: Yes Hx Pacemaker: Yes - Pulmonary Hx Bronchitis: Yes - Neurological Hx Neurological Disorder: Yes HX Cerebrovascular Accident: Yes Hx Dementia: Yes Hx Dizziness: Yes - HEENT Hx Cataracts: Yes (b/l) - Renal Hx Renal Disorder: No Hx Renal Failure: No (denied) - Endocrine/Metabolic Hx Endocrine Disorders: Yes Hx Diabetes Mellitus Type 2: Yes Hx Hypothyroidism: Yes - Hematological/Oncological Hx Anemia: Yes (iron deficiency-IRON INFUSIONS Q MONTH) - Integumentary Hx Dermatological Disorder: No - Musculoskeletal/Rheumatological Hx Musculoskeletal Disorders: Yes Hx Arthritis: Yes Hx Back Pain: Yes Hx Falls: Yes Hx Herniated Disk: Yes - Gastrointestinal Hx Crohn's Disease: Yes - Genitourinary/Gynecological Hx Genitourinary Disorders: No - Psychiatric Hx Psychophysiologic Disorder: Yes (SMOKES 5 CIG A DAY. SMOKED FOR 50 YRS) Hx Anxiety: Yes Hx Depression: Yes Hx Substance Use: No - Surgical History Hx Vascular Access Device: Yes (R side chest port) Other/Comment: removal of blockage in both groin, thyroid sx - Anesthesia Hx Anesthesia: No Hx Anesthesia Reactions: No Hx Malignant Hyperthermia: No - Suicidal Assessment Feels Threatened In Home Enviroment: No Family/Social History - Physician Review Nursing Documentation Reviewed: Yes Family/Social History: Unknown Family HX Smoking Status: Current Some Days Smoker Hx Alcohol Use: No Hx Substance Use: No Hx Substance Use Treatment: No Allergies/Home Meds Allergies/Adverse Reactions: Allergies Sulfa (Sulfonamide Antibiotics) Allergy (Mild, Verified 02/06/19 19:41) RASH Home Medications: Home Meds Medication Instructions Recorded Confirmed Metformin HCl [Glucophage] 500 mg PO DAILY 12/01/15 02/07/19 Zolpidem [Ambien] 5 mg PO HS 12/01/15 02/07/19 Lubiprostone [Amitiza] 24 mcg PO BID 08/26/17 02/06/19 Albuterol HFA [Ventolin HFA 90 2 puff IH DAILY PRN 07/20/18 02/07/19 mcg/actuation (8 g)] Warfarin [Coumadin] 4 mg PO 1800 07/20/18 02/07/19 Aspirin [Adult Low Dose Aspirin EC] 81 mg PO DAILY 02/01/19 02/06/19 Carvedilol [Coreg] 3.125 mg PO BID 02/01/19 02/07/19 Digoxin 0.125 mg PO DAILY 02/01/19 02/06/19 Donepezil [Aricept] 10 mg PO DAILY 02/01/19 02/06/19 Furosemide [Lasix] 40 mg PO DAILY 02/01/19 02/07/19 Lisinopril [Zestril] 2.5 mg PO DAILY 02/01/19 02/06/19 Memantine [Namenda] 10 mg PO DAILY 02/01/19 02/06/19 Pantoprazole Sodium [Protonix] 40 mg PO DAILY 02/01/19 02/07/19 Spironolactone [Aldactone] 25 mg PO DAILY 02/01/19 02/06/19 ALPRAZolam [Xanax] 0.25 mg PO HS PRN 02/07/19 02/07/19 Atorvastatin [Lipitor] 40 mg PO DIN 02/07/19 02/07/19 Citalopram Hydrobromide [Celexa] 5 mg PO DAILY 02/07/19 02/07/19 traMADol [Ultram] 50 mg PO Q8 PRN 02/07/19 02/07/19 Review of Systems - Physician Review All systems were reviewed & negative as marked: Yes - Review of Systems Constitutional: absent: Fevers Respiratory: absent: SOB, Cough Cardiovascular: absent: Chest Pain Gastrointestinal: Abdominal Pain. absent: Nausea, Vomiting Musculoskeletal: absent: Back Pain, Neck Pain Neurological: Dizziness. absent: Headache Physical Exam Vital Signs Reviewed: Yes Appearance: Positive for: Well-Appearing, Non-Toxic, Comfortable, Other (+Pale) Pain Distress: None Mental Status: Positive for: Alert and Oriented X 3 - Systems Exam Head: Present: Atraumatic, Normocephalic Pupils: Present: PERRL Extroacular Muscles: Present: EOMI Conjunctiva: Present: Normal Mouth: Present: Dry (dry mucous membranes) Neck: Present: Normal Range of Motion Respiratory/Chest: Present: Clear to Auscultation, Good Air Exchange, Other (Palpable pacemaker noted to left side of chest. Port-A-Cath noted to right side of chest. ). No: Respiratory Distress, Accessory Muscle Use Cardiovascular: Present: Regular Rate and Rhythm, Normal S1, S2. No: Murmurs Abdomen: Present: Tenderness (mild epigastric tenderness to palpation ). No: Distention, Peritoneal Signs, Rebound, Guarding Back: Present: Normal Inspection Upper Extremity: Present: Normal Inspection. No: Cyanosis, Edema Lower Extremity: Present: Normal Inspection. No: Edema Neurological: Present: GCS=15, CN II-XII Intact, Speech Normal Skin: Present: Warm, Dry, Normal Color. No: Rashes Psychiatric: Present: Alert, Oriented x 3, Normal Insight, Normal Concentration Medical Decision Making ED Course and Treatment: 02/28/19 10:14 Impression: 78 year old female presents to the emergency department complaining of generalized weakness x 3 weeks. Plan: -- Labs -- Chest X-ray -- Iv fluids -- Urinalysis -- Type and screen -- Reassess and disposition Prior Visits: Notes and results from previous visits were reviewed. Progress Notes: 02/28/19 12:38 Labs reviewed with Hgb noted to be 11.6 with elevated creatinine of 2.6. Fluids initiated. Discussion with Dr. Moya(PCP) states patient may be discharged if she is able to tolerate PO within the Emergency Department. He states if patient is unable to eat, then she should be kept for observation. He also says Dr. Newman (oncology) is involved with the patient's care and is awaiting an update regarding the patient's clinical status. Call placed to Dr. Galvin(covering for Dr. Newsome). Meal tray ordered. 02/28/19 13:[address] Newman(oncology), patient had a past medical history of Achondroplasia and progressive decline of cognition, requests hospitalist admit. Call placed to Dr. Huynh(hospitalist). 02/28/19 13:[address] Godoy, who accepts patient. - Lab Interpretations Lab Results: 02/28/19 11:10 02/28/19 11:10 Lab Results 02/28/19 11:10: Blood Type AB POSITIVE, Antibody Screen Negative, BBK History Checked Patient has bt 02/28/19 11:10: Sodium 139, Potassium 4.8, Chloride 102, Carbon Dioxide 28, Anion Gap 14, BUN 65 H, Creatinine 2.3 H, Est GFR ( Amer) 25, Est GFR (Non-Af Amer) 21, Random Glucose 86, Calcium 9.3, Total Bilirubin 1.0, AST 26, ALT 20, Alkaline Phosphatase 136 H D, Troponin I 0.02 D, Total Protein 6.9, Albumin 3.8, Globulin 3.2, Albumin/Globulin Ratio 1.2, Lipase 176 02/28/19 11:10: PT 21.4 H, INR 1.89, APTT 43.5 H 02/28/19 11:10: WBC 4.6 D, RBC 3.63, Hgb 11.6 L D, Hct 34.5 L, MCV 95.0 D, MCH 32.0, MCHC 33.6, RDW 13.1, Plt Count 156, MPV 10.1, Neut % (Auto) 69.1 H, Lymph % (Auto) 20.8 L, [place] % (Auto) 7.1 H, Eos % (Auto) 2.6, Baso % (Auto) 0.4, Lymph # (Auto) 1.0 L, [place] # (Auto) 0.3, Eos # (Auto) 0.1, Baso # (Auto) 0.02, Absolute Neuts (auto) 3.19 I have reviewed the lab results: Yes - RAD Interpretation Narrative RAD Interpretations (Text): 02/28/19 11:16 Chest X-ray reviewed by radiologist, shows: No active disease. Tech Ed/Woodshop Teacher: Radiologist - EKG Interpretation EKG Interpretation (Text): 02/28/19 16:47 EKG reviewed, shows: paced at 80 bpm. Interpreted by ED Physician: Yes - Scribe Statement The provider has reviewed the documentation as recorded by the Leonelibviji Collier All medical record entries made by the Leonelibviji were at my direction and personall y dictated by me. I have reviewed the chart and agree that the record accurately reflects my personal performance of the history, physical exam, medical decision making, and the department course for this patient. I have also personally directed, reviewed, and agree with the discharge instructions and disposition. Disposition/Present on Arrival - Present on Arrival History of DVT/PE: No History of Uncontrolled Diabetes: Yes Urinary Catheter: No History Surgical Site Infection Following: None - Disposition Disposition: HOSPITALIZED
[2019-02-28] MEDS ORDERED: Sodium Chloride 0.9% 1,000 ML IV STA (10:41)
--- NOTE | 2019-02-28 11:04 | RAD ---
Date of service: 02/28/2019 HISTORY: dizziness COMPARISON: 02/10/2019 TECHNIQUE: 1 view obtained. FINDINGS: LUNGS: No active pulmonary disease. PLEURA: No significant pleural effusion identified, no pneumothorax apparent. CARDIOVASCULAR: No aortic atherosclerotic calcification present. Normal cardiac size. No pulmonary vascular congestion. OSSEOUS STRUCTURES: No significant abnormalities. VISUALIZED UPPER ABDOMEN: Normal. OTHER FINDINGS: Pacemaker. Port-A-Cath. IMPRESSION: No active disease.
[2019-02-28 11:20] LABS: BASO # 0.02 K/mm3 (0.0-2.0); BASO % 0.4 % (0.0-3.0); EOS # 0.1 (0.0-0.7); EOS % 2.6 % (1.5-5.0); HEMOGLOBIN 11.6 g/dL (12.0-16.0); LYMPH % 20.8 % (22.0-35.0); MEAN CORPUSCULAR HGB CONC 33.6 g/dl (31.0-37.0); MEAN PLATELET VOLUME 10.1 fl (7.0-11.0); MONO # 0.3 (0.1-0.6); MONO % 7.1 % (1.0-6.0); RBC 3.63 10^6/uL (3.5-6.1); RED CELL DISTRIBUTION WIDTH 13.1 % (11.5-14.5); WHITE BLOOD COUNT 4.6 10^3/uL (4.5-11.0)
[2019-02-28 11:28] LABS: INR 1.89; PARTIAL THROMBOPLASTIN TIME 43.5 Seconds (26.9-38.3); PROTHROMBIN TIME 21.4 SECONDS (9.4-12.5)
[2019-02-28 11:45] LABS: TROPONIN I 0.02 ng/mL
[2019-02-28 12:11] LABS: ALB/GLOB RATIO 1.2 (1.1-1.8); ALBUMIN 3.8 g/dL (3.0-4.8); CALCIUM 9.3 mg/dL (8.4-10.5)
[2019-02-28 21:55] VITALS: BMI 20.1
[2019-02-28] MEDS ORDERED: Pneumococcal 23-Valent Vaccine IM ONE (21:56)
--- NOTE | 2019-03-01 05:23 | CON ---
DATE: 02/28/2019 HEMATOLOGY AND ONCOLOGY CONSULTATION LOCATION: The patient is in room 378, bed 1. 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 The patient was told that she may need transfusion due to low blood count and was told to come the ER by her PMD, Dr. Ramirez. PAST MEDICAL HISTORY: Coronary artery disease status post stenting, status post coronary artery bypass surgery, mechanical mitral valve replacement, history of diabetes mellitus type 2, hypertension, hypothyroidism, COPD, history of discogenic disease and multiple kyphotic fractures in the past status post kyphoplasty, history of GI bleed and anemia. She is now admitted with the aforementioned complaints. The patient was seen in the ER with similar complaints in the past except now the symptoms have worsened, and in the ER, the patient was noted to have hemoglobin that was dropped but not significantly, but the patient's BUN and creatinine were elevated raising the issue the patient has acute on chronic kidney injury, and with all these factors, the patient was advised to be admitted for observation initially before making further recommendations from hematologic or cardiac point of view. REVIEW OF SYSTEMS: The patient does have progressive cognitive decline. She is able to remember me, but she really does not recall any of the other events. The patient has had a difficult time getting around medications and most of the time, the patient has to have her medications given to her by her caregivers at home. PAST SURGICAL HISTORY: Significant for surgery for her breast cancer, also the patient has a right-sided chest port. The patient also has a pacemaker with battery changed recently. The patient has history of in the past as documented. MEDICATIONS: The patient's home medications were reviewed. She is on metformin, Ambien, and Amitiza. She is on albuterol inhalers 2 puffs inhaled daily. She is on warfarin 4 mg daily, aspirin 81 mg daily, carvedilol 3.125 mg b.i.d., digoxin 0.125 mg daily, Aricept 10 mg p.o. daily, furosemide 40 mg p.o. daily, Zestril 2.5 mg p.o. daily, Namenda 10 mg p.o. daily, pantoprazole 40 mg p.o. daily, spironolactone 25 mg p.o. daily, Xanax 0.25 mg p.o. at bedtime p.r.n., Lipitor 40 mg p.o. daily, Celexa 5 mg p.o. daily, and Ultram 50 mg p.o. every 8 hours p.r.n. REVIEW OF SYSTEMS: A 12-system review is negative except for what is mentioned in the HPI. Please make a note that patient has become cognitively very much forgetful, so correct review is not possible except from the information that I have from to my office. PHYSICAL EXAMINATION GENERAL: The patient appears to be nontoxic, comfortable. The patient has no significant distress. The patient is able to recognize me, but confused. VITAL SIGNS: Stable. HEENT: Head is normocephalic and atraumatic. Conjunctivae clear. Sclerae nonicteric. Pupils are equally reactive to light and accommodation. Examination of the oropharynx reveals no oropharyngeal lesions. Tongue is somewhat dry. NECK: Supple. There is no adenopathy. LUNGS: Reveal it to be clear for percussion and auscultation. Decreased breath sounds are noted. Scattered wheezes are heard posteriorly. CHEST: The patient has a pacemaker on the left side, port on the right side. CARDIOVASCULAR SYSTEM: Reveals S1 and S2. Systolic ejection murmur in the lower left sternal border, ejection click. ABDOMEN: Soft with mild tenderness to palpation with no rebound, rigidity or guarding noted. BACK: Reveals no significant tenderness or guarding. EXTREMITIES: Upper and lower extremities reveal no cyanosis, clubbing or edema. NEUROLOGIC: Reveals the patient has residual effects, old hemiparesis on the left side. SKIN: Turgor is decreased. No skin lesions are noted. PSYCHIATRIC: The patient is awake. The patient is able to recognize me, but she is confused with steady cognitive decline over the last 2 years. LABORATORY DATA: The patient's labs were reviewed, that were done through the emergency room and they revealed the following: White count of 4.5, hemoglobin of 11.6, hematocrit 34.5, platelet count of 156,000. Chemistries reveal BUN of 65 with a creatinine of 2.3 and alkaline phosphatase of 136. The patient has acute on chronic kidney injury, may be the blood count is higher than what it should be because of dehydration. We will check with the family and follow the labs very carefully for the next 24 hours while the patient is in the hospital. The patient's INR is 1.3 and was recommended keeping the INR between 2.2 and 2.5, especially because of the mechanical valve and with a history of prior thromboembolic phenomenon. I requested for Cardiology to see the patient as well while she is in the hospital. Please make a note this is a complex patient with multiple comorbid medical issues. Time taken in correlating all the factors, reviewing the reports, discussing with the nurses on the floor more than 80 minutes. Thanking you for allowing me to participate in the management of this patient, very truly yours. Alexandra Newman MD
[2019-03-01 06:49] LABS: BASO # 0.01 K/mm3 (0.0-2.0); BASO % 0.3 % (0.0-3.0); EOS # 0.1 (0.0-0.7); EOS % 2.6 % (1.5-5.0); HEMOGLOBIN 9.8 g/dL (12.0-16.0); LYMPH # 0.7 (1.2-3.4); LYMPH % 17.6 % (22.0-35.0); MEAN CELL VOLUME 94.4 fl (80.0-105.0); MEAN CORPUSCULAR HEMOGLOBIN 32.1 pg (25.0-35.0); MEAN PLATELET VOLUME 10.4 fl (7.0-11.0); MONO # 0.4 (0.1-0.6); MONO % 9.6 % (1.0-6.0); RBC 3.05 10^6/uL (3.5-6.1); WHITE BLOOD COUNT 3.9 10^3/uL (4.5-11.0)
[2019-03-01] MEDS: Levothyroxine 100 MCG TAB PO SCH (06:53)
[2019-03-01 06:55] LABS: ALB/GLOB RATIO 1.2 (1.1-1.8); ALBUMIN 3.3 g/dL (3.0-4.8); CALCIUM 8.8 mg/dL (8.4-10.5)
[2019-03-01] MEDS: Digoxin 125 mcg (0.125 mg) Tab PO SCH ×2 (10:45→17:31)
[2019-03-01] MEDS: Pantoprazole 40 mg EC Tab PO SCH (12:31)
--- NOTE | 2019-03-01 13:31 | CARD ---
APPROVED REPORT Date of service: 02/28/2019 EKG Measurement Heart [id number] <Conclusion> BiVentricular paced rhythm Abnormal ECG
--- NOTE | 2019-03-01 22:38 | HP ---
DATE OF EXAM: 03/01/2019 HISTORY OF PRESENT ILLNESS: The patient is a 78-year-old, patient of Dr. Lincoln covering for him was brought in by family because of her poor oral intake and progressive weakness. She also has generalized weakness. She was also told that she might need blood transfusion when she was seen by . The patient complained of difficulty walking and complained of feeling dizzy. PAST MEDICAL HISTORY: She has significant past medical history of: 1. Coronary artery disease, status post angioplasty. 2. Status post pacemaker placement. 3. Mitral valve replacement. 4. Noninsulin-dependent diabetes. 5. Hypertension. 6. History of COPD. 7. History of anemia. 8. Hypothyroidism. 9. History of GI bleed. 10. History of CA of breast. PAST SURGICAL HISTORY: Significant for breast cancer, status post recent change of pacemaker battery and she has dressing on her left upper chest. ALLERGIES: SHE IS ALLERGIC TO SULFA MEDICATION. MEDICATIONS AT HOME: She is on Coumadin 4 mg daily, spironolactone 25 daily, Namenda 10 mg daily, levothyroxine 100 mcg daily, Aricept 10 mg daily, digoxin 0.125 daily, Celexa 5 mg daily, Coreg 3.125 daily, atorvastatin 40 mg daily, aspirin 81 daily, Ambien 5 mg at bedtime, Protonix 40 daily, metformin 500 daily, Amitiza, Zestril, Lasix, and Xanax. SOCIAL HISTORY: She lives with her family. She used to be a smoker in the past. PHYSICAL EXAMINATION: GENERAL: She looks pale. VITAL SIGNS: She is afebrile, pulse 79, respirations 20, and blood pressure 105/57. LUNGS: Bilateral fair air flow. No rhonchi or crackles. HEART: S1 and S2 audible. ABDOMEN: Soft and nontender. No rebound. No guarding. NEUROLOGIC: The patient is awake and alert, able to communicate, follow commands. LABORATORY DATA: WBC 3.9, hemoglobin 9.8, hematocrit 28.8, and platelet 118. PT 21.4 and INR 1.89. Chemistry; sodium 140, potassium 4.5, chloride 104, CO2 of 27, BUN 59, creatinine 1.9, blood sugar 121, and alk phos 136. X-ray of chest, no active disease. ASSESSMENT: 1. Generalized weakness and dizziness upon ambulation. 2. History of anemia and gastrointestinal bleed. 3. History of mitral valve replacement, on Coumadin. 4. History of coronary artery disease, status post angioplasty. 5. Poor oral intake. PLAN: Currently, the patient is on spironolactone. She is on Aricept. She has been started on Celexa and carvedilol. She is on Coumadin, digoxin, aspirin, atorvastatin, and she is on IV fluids. We will order for CBC, CMP and PT/INR in a.m. and physical therapy in a.m. Madeline Bach MD
--- NOTE | 2019-03-01 23:36 | CON ---
CARDIOLOGY CONSULTATION DATE: 03/01/2019 (Dr. Naranjo) HISTORY OF PRESENT ILLNESS: The patient is a 78-year-old woman who presents with generalized weakness. PAST MEDICAL HISTORY: Extensive including history of coronary bypass surgery, history of PTCA and stent, atrial fibrillation, history of pacemaker placement, history of mitral valve replacement and is currently on Coumadin. She denies chest pain. She denies shortness of breath. Her symptoms are predominant due to weakness. Her other comorbidities include chronic anemia, renal insufficiency as well as diabetes mellitus. Her ejection fraction is consistent with an ischemic cardiomyopathy with aortic valve disease as well. SOCIAL HISTORY: Denies smoking. REVIEW OF SYSTEMS: All covered above. PHYSICAL EXAMINATION: VITAL SIGNS: Stable, heart rate is in the 80s, paced rhythm. NECK: Negative JVD. LUNGS: Without rales. HEART: Revealed a 2/6 systolic ejection murmur. EXTREMITIES: Without edema. EKG is a paced rhythm. Laboratories were noted. IMPRESSION: 1. Weakness. 2. Ischemic dilated cardiomyopathy. 3. Coronary artery disease. 4. History of coronary artery bypass surgery. 5. History of percutaneous transluminal coronary angioplasty and stent. 6. Diabetes mellitus. 7. Renal insufficiency. 8. Atrial fibrillation with status post pacemaker placement. The patient on chronic anticoagulation. Given these findings, her weakness is clearly multifactorial with multiple comorbidities. However, critical aortic stenosis needs to be ruled out from her previous echocardiogram, which revealed an aortic valve of 0.87. We will review her previous echo. In the morning, we will return the case for continued care to Dr. Ferrari. Marcial Aguillon MD
[2019-03-02] MEDS: Levothyroxine 100 MCG TAB PO SCH (06:01)
[2019-03-02 07:22] LABS: INR 2.65; PROTHROMBIN TIME 29.9 SECONDS (9.4-12.5)
[2019-03-02 07:27] LABS: ALB/GLOB RATIO 1.2 (1.1-1.8); ALBUMIN 3.7 g/dL (3.0-4.8); CALCIUM 9.2 mg/dL (8.4-10.5)
[2019-03-02 07:33] LABS: HEMOGLOBIN 10.3 g/dL (12.0-16.0); MEAN CORPUSCULAR HEMOGLOBIN 32.1 pg (25.0-35.0); MEAN CORPUSCULAR HGB CONC 33.8 g/dl (31.0-37.0); MEAN PLATELET VOLUME 10.4 fl (7.0-11.0); RBC 3.21 10^6/uL (3.5-6.1); RED CELL DISTRIBUTION WIDTH 13.2 % (11.5-14.5); WHITE BLOOD COUNT 4.4 10^3/uL (4.5-11.0)
--- NOTE | 2019-03-02 08:28 | CP.PCM.PN ---
Subjective - Date & Time of Evaluation Date of Evaluation: 03/02/19 Time of Evaluation: 07:10 - Subjective Subjective: Awake, alert, no distress, feels okay Reason for consultation and follow up: Cardiac follow up of coronary artery disease, post CABG, post stents, admitted for generalized weakness, history of hypertension, hypothyroidism,, COPD, GI bleed, anemia, and anxiety/depression, Seen and examined by me and Dr. Naranjo Objective - Vital Signs/Intake and Output Vital Signs (last 24 hours): Temp Pulse Resp BP Pulse Ox 98 F 83 18 107/64 94 L 03/01/19 16:44 03/01/19 17:30 03/01/19 16:44 03/01/19 16:44 03/01/19 16:44 Intake and Output: 03/02/19 03/02/19 06:59 18:59 Intake Total 240 Balance 240 - Medications Medications: Current Medications Alprazolam (Xanax) 0.25 mg PO HS PRN; Protocol PRN Reason: Anxiety Stop: 03/08/19 12:38 Aspirin (Ecotrin) 81 mg PO DAILY [facility] Last Admin: 03/01/19 10:45 Dose: 81 mg Atorvastatin Calcium (Lipitor) 40 mg PO DIN [facility] Last Admin: 03/01/19 17:31 Dose: 40 mg Carvedilol (Coreg) 3.125 mg PO BID [facility] Last Admin: 03/01/19 17:30 Dose: 3.125 mg Citalopram Hydrobromide (Celexa) 5 mg PO DAILY [facility] Last Admin: 03/01/19 10:44 Dose: 5 mg Digoxin (Digoxin) 0.125 mg PO 1400 [facility] Last Admin: 03/01/19 17:31 Dose: Not Given Donepezil HCl (Aricept) 10 mg PO DAILY [facility] Last Admin: 03/01/19 10:44 Dose: 10 mg Levothyroxine Sodium (Synthroid) 100 mcg PO 0600 [facility] Last Admin: 03/02/19 06:01 Dose: 100 mcg Memantine (Namenda) 10 mg PO DAILY [facility] Last Admin: 03/01/19 10:46 Dose: 10 mg Pantoprazole Sodium (Protonix Ec Tab) 40 mg PO DAILY [facility] Last Admin: 03/01/19 12:31 Dose: 40 mg Spironolactone (Aldactone) 25 mg PO DAILY [facility] Last Admin: 03/01/19 10:44 Dose: 25 mg Warfarin Sodium (Coumadin) 4 mg PO 1800 [facility]; Protocol Last Admin: 03/01/19 17:30 Dose: 4 mg - Labs Labs: 03/02/19 06:50 03/02/19 06:50 PT 29.9 SECONDS (9.4-12.5) H 03/02/19 06:50 INR 2.65 03/02/19 06:50 APTT 43.5 Seconds (26.9-38.3) H 02/28/19 11:10 - Constitutional Appears: Non-toxic, No Acute Distress - Head Exam Head Exam: NORMAL INSPECTION, NORMOCEPHALIC - Eye Exam Eye Exam: Normal appearance Pupil Exam: NORMAL ACCOMODATION - ENT Exam ENT Exam: Mucous Membranes Dry - Respiratory Exam Respiratory Exam: Decreased Breath Sounds, NORMAL BREATHING PATTERN - Cardiovascular Exam Cardiovascular Exam: +S1, +S2 Additional comments: PPM/AICD - GI/Abdominal Exam GI & Abdominal Exam: Soft, Normal Bowel Sounds - Extremities Exam Extremities Exam: Full ROM, Normal Capillary Refill - Neurological Exam Neurological Exam: Alert, Awake - Psychiatric Exam Psychiatric exam: Normal Affect, Normal Mood - Skin Skin Exam: Dry, Normal Color, Warm Assessment and Plan - Assessment and Plan (Free Text) Assessment: A 78 year old female who came in to the ER due to generalized weakness. History of NH, CHF, TIA/ CVA, coronary artery disease, post CABG and mitral valve replacement 20 years ago, atrial fibrillation, on Coumadin , post stents, hypertension, hypothyroidism,breast cancer, COPD, GI bleed, anemia, and anxiety/depression,AICD/PPM, diabetes, renal insufficiency. Troponin normal. Echo done on 01/31/18 showed LVEF 40-45%, mild aortic regurgitation,moderate valvular aortic stenosis, mechanical mitral valve, normal functioning, trace MR, mild to moderate tricuspid regurgitation RVSP 42 mmHg, mild pulmonary hypertension, no vegetation. Cardiac cath done on 09/09/18 showed [place] triple vessel disease, LVEF 25%, successful PTCA of totally occluded RCA, proximal and distal, and POBA of mid RCA. Recently she had PPM change. Admitted for generalized weakness poor oral intake. Cardiac status stable. Plan: Denies chest pain No distress Heart rate stable Blood pressure stable Cardiac status stable On ASA 81 mg daily,Lipitor 40 mg daily, Coreg 3.125 mg BID, Digoxin 0.125 mg daily, Synthroid 100 mcg daily Aldactone 25 mg daily, Warfarin 4 mg daily Continue current treatment Continue current medications TSH.lipid panel, HgbA1c Digoxin level in am Nutritional support Will follow up Plan and treatment discussed with Dr. Naranjo
[2019-03-02] MEDS: Pantoprazole 40 mg EC Tab PO SCH (10:54)
[2019-03-02] MEDS: Digoxin 125 mcg (0.125 mg) Tab PO SCH (14:57)
--- NOTE | 2019-03-02 15:18 | CP.PCM.PN ---
<Romel Loredo - Last Filed: 03/02/19 15:14> Subjective - Date & Time of Evaluation Date of Evaluation: 03/02/19 Time of Evaluation: 08:00 - Subjective Subjective: Romel Loredo D.O. PGY-3, Internal Medicine Resident, Dr. Lincoln's Service, Progress Note 78 year old female with a PMH of CAD s/p CABG and MV replacement, HFrEF @47%, previous CVA, atrial fibrillation on Coumadin, hypertension, hypothyroidism, breast cancer, achondroplasia, COPD, previous GI bleed, chronic anemia, diabetes, and anxiety/depression who presented for weakness after being evaluated by her PMD. Patient was seen and examined at bedside. No acute complaints. Objective - Vital Signs/Intake and Output Vital Signs (last 24 hours): Temp Pulse Resp BP Pulse Ox 98.3 F 80 22 116/68 99 03/02/19 09:04 03/02/19 09:04 03/02/19 09:04 03/02/19 09:04 03/02/19 09:04 Intake and Output: 03/02/19 03/02/19 06:59 18:59 Intake Total 240 Balance 240 - Medications Medications: Current Medications Alprazolam (Xanax) 0.25 mg PO HS PRN; Protocol PRN Reason: Anxiety Stop: 03/08/19 12:38 Aspirin (Ecotrin) 81 mg PO DAILY [facility] Last Admin: 03/02/19 10:56 Dose: 81 mg Atorvastatin Calcium (Lipitor) 40 mg PO DIN [facility] Last Admin: 03/01/19 17:31 Dose: 40 mg Carvedilol (Coreg) 3.125 mg PO BID [facility] Last Admin: 03/02/19 10:54 Dose: 3.125 mg Citalopram Hydrobromide (Celexa) 5 mg PO DAILY [facility] Last Admin: 03/02/19 10:57 Dose: 5 mg Digoxin (Digoxin) 0.125 mg PO 1400 [facility] Last Admin: 03/02/19 14:57 Dose: 0.125 mg Donepezil HCl (Aricept) 10 mg PO DAILY [facility] Last Admin: 03/02/19 10:54 Dose: 10 mg Levothyroxine Sodium (Synthroid) 100 mcg PO 0600 [facility] Last Admin: 03/02/19 06:01 Dose: 100 mcg Memantine (Namenda) 10 mg PO DAILY [facility] Last Admin: 03/02/19 10:56 Dose: 10 mg Pantoprazole Sodium (Protonix Ec Tab) 40 mg PO DAILY [facility] Last Admin: 03/02/19 10:54 Dose: 40 mg Spironolactone (Aldactone) 25 mg PO DAILY [facility] Last Admin: 03/02/19 10:56 Dose: 25 mg Warfarin Sodium (Coumadin) 4 mg PO 1800 [facility]; Protocol Last Admin: 03/01/19 17:30 Dose: 4 mg - Labs Labs: 03/02/19 06:50 03/02/19 06:50 PT 29.9 SECONDS (9.4-12.5) H 03/02/19 06:50 INR 2.65 03/02/19 06:50 APTT 43.5 Seconds (26.9-38.3) H 02/28/19 11:10 - Constitutional Appears: Non-toxic, No Acute Distress - Head Exam Head Exam: NORMAL INSPECTION, NORMOCEPHALIC - Eye Exam Eye Exam: Normal appearance, EOMI - ENT Exam ENT Exam: Mucous Membranes Moist, Normal Oropharynx - Respiratory Exam Respiratory Exam: Decreased Breath Sounds, no wheezing, rhonchi or rales - Cardiovascular Exam Cardiovascular Exam: +S1, +S2, AICD on left chest wall - GI/Abdominal Exam GI & Abdominal Exam: Soft, Normal Bowel Sounds - Extremities Exam Extremities Exam: nontender - Neurological Exam Neurological Exam: Alert, Awake - Skin Skin Exam: Dry, Normal Color, Warm Assessment and Plan - Assessment and Plan (Free Text) Assessment: 78 year old female with a PMH of CAD s/p CABG and MV replacement, HFrEF @47%, p revious CVA, atrial fibrillation on Coumadin, hypertension, hypothyroidism, breast cancer, achondroplasia, COPD, previous GI bleed, chronic anemia, diabetes, and anxiety/depression who presented for weakness after being evaluated by her PMD. Plan: 1. Weakness/failure to thrive 2. CAD s/p CABG and MV replacement 3. Afib 4. HFrEF 5. HTN 6. COPD 7. Chronic anemia 8. Anxiety and depression 9. Hypothyroidism Patient not found to have any worsening anemia on evaluation. No active bleeding at this time. Hemodynamically stable. There is a concern now for well-being as the patient lives alone and has little to no family. Patient has a friend who comes to see her but apparently the friend is moving back to her country so she can no longer help take care of her. The friend expressed some concern as the patient apparently has not been eating much for the last 3 weeks and refuses to take her medications at home and also notes periods of confusion. The situation was discussed with the casey saw operator. They are aware of the situation. Psychiatry has been consulted with the patient has a make decisions competently. Hematology/oncology consultation also reviewed and appreciated. Cardiology consultation reviewed and appreciated. For her CAD she will be continued on aspirin and Lipitor. For heart failure she will be continued on carvedilol, digoxin, Aldactone. For atrial fibrillation she will be continued on warfarin. For her dementia she will be continued on Namenda and donepezil. For depression we will continue her home Celexa. Given her mechanical valve will continue her warfarin at the current dose and follow her PT and INR. For hypothyroidism we will continue home dose of 100 mcg. We will obtain a thyroid panel tomorrow morning. We will continue to monitor the patient closely. Patient was seen and examined and case was discussed at length with attending physician. <Joaquín Lincoln S - Last Filed: 03/02/19 17:59> Objective - Vital Signs/Intake and Output Vital Signs (last 24 hours): Temp Pulse Resp BP Pulse Ox 97.8 F 81 20 119/70 98 03/02/19 17:47 03/02/19 17:47 03/02/19 17:47 03/02/19 17:47 03/02/19 17:47 Intake and Output: 03/02/19 03/02/19 06:59 18:59 Intake Total 240 Balance 240 - Medications Medications: Current Medications Albuterol/Ipratropium (Duoneb 3 Mg/0.5 Mg (3 Ml) Ud) 3 ml IH Q2H PRN PRN Reason: Shortness of Breath Albuterol/Ipratropium (Duoneb 3 Mg/0.5 Mg (3 Ml) Ud) 3 ml IH [id number] HECTOR Alprazolam (Xanax) 0.25 mg PO HS PRN; Protocol PRN Reason: Anxiety Stop: 03/08/19 12:38 Aspirin (Ecotrin) 81 mg PO DAILY [facility] Last Admin: 03/02/19 10:56 Dose: 81 mg Atorvastatin Calcium (Lipitor) 40 mg PO DIN [facility] Last Admin: 03/02/19 17:51 Dose: 40 mg Carvedilol (Coreg) 3.125 mg PO BID [facility] Last Admin: 03/02/19 17:51 Dose: 3.125 mg Citalopram Hydrobromide (Celexa) 5 mg PO DAILY [facility] Last Admin: 03/02/19 10:57 Dose: 5 mg Cyanocobalamin (Vitamin B12 1000 Mcg Tab) 1,000 mcg PO DAILY [facility] Last Admin: 03/02/19 17:50 Dose: 1,000 mcg Digoxin (Digoxin) 0.125 mg PO 1400 [facility] Last Admin: 03/02/19 14:57 Dose: 0.125 mg Donepezil HCl (Aricept) 10 mg PO DAILY [facility] Last Admin: 03/02/19 10:54 Dose: 10 mg Sodium Chloride (Sodium Chloride 0.9%) 50 mls @ 50 mls/hr IV .Q1H [facility] Levothyroxine Sodium (Synthroid) 100 mcg PO 0600 [facility] Last Admin: 03/02/19 06:01 Dose: 100 mcg Megestrol Acetate (Megace) 40 mg PO DAILY [facility] Memantine (Namenda) 10 mg PO DAILY [facility] Last Admin: 03/02/19 10:56 Dose: 10 mg Methylprednisolone (Solu-Medrol) 40 mg IVP DAILY [facility] Last Admin: 03/02/19 17:50 Dose: 40 mg Pantoprazole Sodium (Protonix Ec Tab) 40 mg PO DAILY [facility] Last Admin: 03/02/19 10:54 Dose: 40 mg Spironolactone (Aldactone) 25 mg PO DAILY [facility] Last Admin: 03/02/19 10:56 Dose: 25 mg Warfarin Sodium (Coumadin) 4 mg PO SuMoWeFrSa@1800 [facility]; Protocol Warfarin Sodium (Coumadin) 2 mg PO TuTh@1800 [facility]; Protocol Warfarin Sodium (Coumadin) 2 mg PO 1800 ONE Stop: 03/02/19 18:01 - Labs Labs: 03/02/19 06:50 03/02/19 06:50 PT 29.9 SECONDS (9.4-12.5) H 03/02/19 06:50 INR 2.65 03/02/19 06:50 APTT 43.5 Seconds (26.9-38.3) H 02/28/19 11:10 Assessment and Plan - Assessment and Plan (Free Text) Plan: Pt seen and examined by me. I have reviewed the note of the biomedical engineering professor and I agree with it. I have discussed the assessment and plan with the resident. I have reviewed the medications and the last labs.
[2019-03-02] MEDS ORDERED: Sodium Chloride 0.9% 50 ML IV SCH (15:30)
[2019-03-02] MEDS ORDERED: Albuterol-Ipratrop 3 mg / 0.5 (3 ml) UD IH PRN (16:52)
--- NOTE | 2019-03-02 16:55 | CP.PCM.APN ---
Subjective - Date & Time of Evaluation Date of Evaluation: 03/02/19 Time of Evaluation: 13:00 - Subjective Subjective: Pt. seen in bed, complaints of left epigastric pain, and nausea, denied vomiting, states has poor appetite. Objective - Vital Signs/Intake and Output Vital Signs (last 24 hours): Temp Pulse Resp BP Pulse Ox 98.3 F 80 22 116/68 99 03/02/19 09:04 03/02/19 09:04 03/02/19 09:04 03/02/19 09:04 03/02/19 09:04 Intake and Output: 03/02/19 03/02/19 06:59 18:59 Intake Total 240 Balance 240 - Medications Medications: Current Medications Alprazolam (Xanax) 0.25 mg PO HS PRN; Protocol PRN Reason: Anxiety Stop: 03/08/19 12:38 Aspirin (Ecotrin) 81 mg PO DAILY [facility] Last Admin: 03/02/19 10:56 Dose: 81 mg Atorvastatin Calcium (Lipitor) 40 mg PO DIN [facility] Last Admin: 03/01/19 17:31 Dose: 40 mg Carvedilol (Coreg) 3.125 mg PO BID [facility] Last Admin: 03/02/19 10:54 Dose: 3.125 mg Citalopram Hydrobromide (Celexa) 5 mg PO DAILY [facility] Last Admin: 03/02/19 10:57 Dose: 5 mg Digoxin (Digoxin) 0.125 mg PO 1400 [facility] Last Admin: 03/02/19 14:57 Dose: 0.125 mg Donepezil HCl (Aricept) 10 mg PO DAILY [facility] Last Admin: 03/02/19 10:54 Dose: 10 mg Sodium Chloride (Sodium Chloride 0.9%) 50 mls @ 50 mls/hr IV .Q1H COUNT [facility]CLUDES [facility] Levothyroxine Sodium (Synthroid) 100 mcg PO 0600 [facility] Last Admin: 03/02/19 06:01 Dose: 100 mcg Megestrol Acetate (Megace) 40 mg PO DAILY [facility] Memantine (Namenda) 10 mg PO DAILY [facility] Last Admin: 03/02/19 10:56 Dose: 10 mg Pantoprazole Sodium (Protonix Ec Tab) 40 mg PO DAILY [facility] Last Admin: 03/02/19 10:54 Dose: 40 mg Spironolactone (Aldactone) 25 mg PO DAILY [facility] Last Admin: 03/02/19 10:56 Dose: 25 mg Warfarin Sodium (Coumadin) 4 mg PO 1800 HECTOR; Protocol Last Admin: 03/01/19 17:30 Dose: 4 mg - Labs Labs: 03/02/19 06:50 03/02/19 06:50 PT 29.9 SECONDS (9.4-12.5) H 03/02/19 06:50 INR 2.65 03/02/19 06:50 APTT 43.5 Seconds (26.9-38.3) H 02/28/19 11:10 - Constitutional Appears: Non-toxic - Head Exam Head Exam: NORMOCEPHALIC - Eye Exam Eye Exam: Normal appearance - ENT Exam ENT Exam: Mucous Membranes Dry - Neck Exam Neck Exam: Full ROM - Respiratory Exam Respiratory Exam: Clear to Ausculation Bilateral - Cardiovascular Exam Cardiovascular Exam: Irregular Rhythm, +S1, +S2 - GI/Abdominal Exam GI & Abdominal Exam: Tenderness - Rectal Exam Rectal Exam: Deferred - Exam Exam: absent: Circumcision, NORMAL INSPECTION, Scrotal Swelling, Testicular Tenderness, Uretheral Discharge, Testicular Vertical Lie, Bladder Distension External exam: absent: Ecchymosis, Erythema, Lacerations, Lesions, NORMAL EXTERNAL EXAM, Swelling Speculum exam: absent: Cervical Discharge, Erythema, Foreign Body, Laceration, NORMAL SPECULUM EXAM, Tissue, Vaginal Bleeding, Vaginal Discharge Bimanual exam: absent: Adenexal Mass, Adnexal, Cervical Motion Tendernes, NORMAL BIMANUAL EXAM, Uterine Enlargement, Uterine Tenderness - Back Exam Back Exam: Full ROM - Neurological Exam Neurological Exam: Alert, Awake - Psychiatric Exam Psychiatric exam: Flat Affect - Skin Skin Exam: Dry, Intact, Normal Color, Warm Assessment and Plan - Assessment and Plan (Free Text) Assessment: ITS Impressions Chest X-Ray 02/28/19 10:35 IMPRESSION: No active disease. Assessment: 78 year old female with a PMH of CAD s/p CABG and MV replacement, HFrEF @47%, previous CVA, atrial fibrillation on Coumadin, hypertension, hypothyroidism, breast cancer, achondroplasia, COPD, previous GI bleed, chronic anemia, diabetes, and anxiety/depression who presented for weakness after being evaluated by her PMD. Plan: 1. Weakness, likely r/t poor po intake- Megace added, continue encouraged PO intake, 2. GEORGE, likely r/t poor po intake- IVF at 50 ml / hr ordered,- monitor Bun/ Creatinine. 3. Abdominal Pain,left epigastric,- CTAbdomen without contrast pending. 4. Progressive cognitive decline, with periods of confusion- Psyche consult pending to eval competence, vs. depression, dementia. SW/CM for Dc planning, psych input pending. Will continue to monitor clinical status and follow closely.
[2019-03-02] MEDS ORDERED: MethylPREDNISolone 40 mg Vial IVP SCH (17:00)
[2019-03-02] MEDS ORDERED: Albuterol-Ipratrop 3 mg / 0.5 (3 ml) UD IH SCH (19:30)
--- NOTE | 2019-03-02 22:28 | PN ---
DATE: 03/02/2019 SUBJECTIVE: The patient was seen and examined. I do agree with the note of the medical planner. I was involved in the plan of care. The patient was seen by social work, I have concerns that the patient may not be safe to go home. The patient has a friend, name Jeet Mejia who has been involved in helping her at home. Apparently, she is going to be leaving the area. She is indicated to the transition social worker that she is moving to [place]. The patient states that she prefers to go home, but I do not feel that it is safe enough for her to be on her own as she has limited assistance. The patient denies any headaches or dizziness. No chest pain. She says that she has been eating and she has failure to thrive, but she is improving. She was given IV fluids. She has atrial fibrillation and she is on Coumadin for mechanical valve. She is on carvedilol, digoxin, and Aldactone for her CHF secondary to systolic dysfunction, stable. The patient is on aspirin for her coronary artery disease. She is on Lipitor for dyslipidemia. She is on her thyroid medications for her hypothyroidism. The patient is on Aricept for dementia. She is on IV Solu-Medrol. She had a CT scan of abdomen ordered because she was complaining of epigastric discomfort. The patient was seen by physical therapy and the patient was able to walk 110 feet with rolling walker as advised that she may benefit from Transitional Care Unit. If the patient is going to be long-term care, she may do better by going to the facility for her subacute stay. Joaquín Lincoln MD
--- NOTE | 2019-03-03 01:49 | CON ---
DATE OF CONSULTATION: 03/02/2019 PULMONARY CONSULTATION REFERRING PHYSICIAN: Dr. Joaquín Lincoln. REASON FOR CONSULTATION: Obstructive lung disease, history of sleep apnea syndrome. HISTORY OF PRESENT ILLNESS: This is a 78-year-old female, known history of coronary artery disease, history of coronary artery bypass surgery, mitral valve replacement, cardiomyopathy with decreased LV function, atrial fibrillation, history of stroke, hypertension, hypothyroid, history of breast cancer, chronic obstructive lung disease steroids-dependent, history of anemia, diabetes, anxiety, and depression disorder, comes into emergency room with cough and shortness of breath. No hemoptysis or emesis, no hematuria, no diarrhea, no leg pain or leg swelling. PAST MEDICAL HISTORY: As per history of present illness. ALLERGIES: SULFA. SOCIAL HISTORY: Nonsmoker, nondrinker. FAMILY HISTORY: No significant cardiopulmonary disease reported. MEDICATIONS: She is on Aldactone 25 mg daily; Aricept 10 mg daily; Celexa 5 mg daily; Coreg 3.125 mg daily; Coumadin 2 mg on Saturday and and 4 mg on Saturday, Saturday, Saturday, Saturday with Saturday; digoxin is 0.125 mg daily; albuterol/Atrovent nebulizer every 2 hours p.r.n. and every 4 hours [id number]; Ecotrin 81 mg daily; Lipitor 40 mg daily; Megace 40 mg daily, Namenda 10 mg daily; Protonix 40 mg daily; IV normal saline 50 mL/hour; Solu-Medrol 40 mg IV daily; Synthroid 100 mcg daily; vitamin B12 1000 mcg daily; Xanax 0.25 mg at bedtime p.r.n. REVIEW OF SYSTEMS: No headache, no rhinitis. Has a cough, shortness of breath. No chest pain. No nausea, no vomiting, no diarrhea, leg pain, or leg swelling. Feeling weak and tired, noncompliant with the CPAP. PHYSICAL EXAMINATION: VITAL SIGNS: Temperature 98, heart rate 81, respiratory rate is 20, blood pressure 119/70, pulse ox 98% on 2 liters nasal cannula. HEENT: Small oral cavity, crowded airway. NECK: Supple. No JVD. LUNGS: Have bilateral expiratory wheezing. HEART: S1 and S2. ABDOMEN: Soft, nontender, no organomegaly. EXTREMITIES: There is no edema. NEUROLOGIC: Awake and alert, and follows simple commands. LABORATORY DATA: Shows hemoglobin 10.3, hematocrit 30.5, WBC 4.4, platelet is 130, INR 2.65, sodium 141, potassium 4.5, chloride 103, bicarbonate 28, BUN 47, creatinine 1.5, glucose 146, calcium is 9.2, AST 26, ALT 19, alk phos is 128, albumin 3.7, vitamin B12 is 394. She had EKG done in the ER on admission shows biventricular paced rhythm. Chest x-ray done on 02/28 shows no active disease. IMPRESSION AND PLAN: Chronic obstructive lung disease, cardiomyopathy, coronary artery disease, history of valve replacement, atrial fibrillation with pacemaker, hypertension, anemia, hypothyroid steroids-dependent, history of breast cancer. From pulmonary point of view, continue bronchodilator. May increase Solu-Medrol to 40 twice a day, change inhaled bronchodilator, Brovana, Pulmicort, and Mucomyst, may continue DuoNeb on p.r.n. basis. Keep head at 45 degrees, sleep apnea precaution, careful with sedation. We will review her old echocardiogram also. We will suggest swallow evaluation to rule out oropharyngeal dysphagia. Thank you and we will follow with you. Cyril Justice MD
[2019-03-03] MEDS: Levothyroxine 100 MCG TAB PO SCH (06:22)
--- NOTE | 2019-03-03 06:52 | CP.PCM.PN ---
Subjective - Date & Time of Evaluation Date of Evaluation: 03/03/19 Time of Evaluation: 06:20 - Subjective Subjective: Awake, alert, no distress, wanted a cookie or crackers Reason for consultation and follow up: Cardiac follow up of coronary artery di sease, post CABG, post stents, admitted for generalized weakness, history of hypertension, hypothyroidism,, COPD, GI bleed, anemia, and anxiety/depression, Seen and examined by me and Dr. Naranjo Objective - Vital Signs/Intake and Output Vital Signs (last 24 hours): Temp Pulse Resp BP Pulse Ox 97.8 F 81 20 119/70 98 03/02/19 17:47 03/02/19 17:47 03/02/19 17:47 03/02/19 17:47 03/02/19 17:47 Intake and Output: 03/02/19 03/03/19 18:59 06:59 Intake Total 960 Balance 960 - Medications Medications: Current Medications Albuterol/Ipratropium (Duoneb 3 Mg/0.5 Mg (3 Ml) Ud) 3 ml IH Q2H PRN PRN Reason: Shortness of Breath Alprazolam (Xanax) 0.25 mg PO HS PRN; Protocol PRN Reason: Anxiety Stop: 03/08/19 12:38 Arformoterol Tartrate (Brovana) 15 mcg IH [id number] [facility] Aspirin (Ecotrin) 81 mg PO DAILY [facility] Last Admin: 03/02/19 10:56 Dose: 81 mg Atorvastatin Calcium (Lipitor) 40 mg PO DIN [facility] Last Admin: 03/02/19 17:51 Dose: 40 mg Budesonide (Pulmicort Respules) 0.5 mg IH [id number] [facility] Carvedilol (Coreg) 3.125 mg PO BID [facility] Last Admin: 03/02/19 17:51 Dose: 3.125 mg Citalopram Hydrobromide (Celexa) 5 mg PO DAILY [facility] Last Admin: 03/02/19 10:57 Dose: 5 mg Cyanocobalamin (Vitamin B12 1000 Mcg Tab) 1,000 mcg PO DAILY [facility] Last Admin: 03/02/19 17:50 Dose: 1,000 mcg Digoxin (Digoxin) 0.125 mg PO 1400 [facility] Last Admin: 03/02/19 14:57 Dose: 0.125 mg Donepezil HCl (Aricept) 10 mg PO DAILY [facility] Last Admin: 03/02/19 10:54 Dose: 10 mg Levothyroxine Sodium (Synthroid) 100 mcg PO 0600 [facility] Last Admin: 03/03/19 06:22 Dose: 100 mcg Megestrol Acetate (Megace) 40 mg PO DAILY [facility] Memantine (Namenda) 10 mg PO DAILY [facility] Last Admin: 03/02/19 10:56 Dose: 10 mg Methylprednisolone (Solu-Medrol) 40 mg IVP BID [facility] Pantoprazole Sodium (Protonix Ec Tab) 40 mg PO DAILY [facility] Last Admin: 03/02/19 10:54 Dose: 40 mg Spironolactone (Aldactone) 25 mg PO DAILY [facility] Last Admin: 03/02/19 10:56 Dose: 25 mg Warfarin Sodium (Coumadin) 4 mg PO SuMoWeFrSa@1800 HECTOR; Protocol Warfarin Sodium (Coumadin) 2 mg PO TuTh@1800 HECTOR; Protocol - Labs Labs: 03/02/19 06:50 03/02/19 06:50 PT 29.9 SECONDS (9.4-12.5) H 03/02/19 06:50 INR 2.65 03/02/19 06:50 APTT 43.5 Seconds (26.9-38.3) H 02/28/19 11:10 - Constitutional Appears: Non-toxic, No Acute Distress - Head Exam Head Exam: NORMAL INSPECTION, NORMOCEPHALIC - Eye Exam Eye Exam: Normal appearance Pupil Exam: NORMAL ACCOMODATION - ENT Exam ENT Exam: Mucous Membranes Moist, Normal Exam - Neck Exam Neck Exam: Full ROM, Normal Inspection - Respiratory Exam Respiratory Exam: Decreased Breath Sounds, Clear to Ausculation Bilateral, NORMAL BREATHING PATTERN - Cardiovascular Exam Cardiovascular Exam: +S1, +S2 Additional comments: PPM/AICD - GI/Abdominal Exam GI & Abdominal Exam: Soft, Normal Bowel Sounds - Extremities Exam Extremities Exam: Full ROM, Normal Capillary Refill - Neurological Exam Neurological Exam: Alert, Awake, Oriented x3 - Psychiatric Exam Psychiatric exam: Normal Affect, Normal Mood - Skin Skin Exam: Dry, Normal Color, Warm Assessment and Plan - Assessment and Plan (Free Text) Assessment: A 78 year old female who came in to the ER due to generalized weakness. History of [place], CHF, TIA/ CVA, coronary artery disease, post CABG and mitral valve replacement 20 years ago, atrial fibrillation, on Coumadin , post stents, hypertension, hypothyroidism,breast cancer, COPD, GI bleed, anemia, and anxiety/depression,AICD/PPM, diabetes, renal insufficiency. Troponin normal. Echo done on 01/31/18 showed LVEF 40-45%, mild aortic regurgitation,moderate valvular aortic stenosis, mechanical mitral valve, normal functioning, trace MR, mild to moderate tricuspid regurgitation RVSP 42 mmHg, mild pulmonary hypertension, no vegetation. Cardiac cath done on 09/09/18 showed lime triple vessel disease, LVEF 25%, successful PTCA of totally occluded RCA, proximal and distal, and POBA of mid RCA. Recently she had PPM change. Admitted for generalized weakness,poor oral intake. No follow up with Dr. Garrido regarding PPM/AICD ([place]). PPM/AICD and atrial fibrillation baseline heart rhythm, No evidence of Ventricular tachycardia. 5-9 years of battery life. Pulmonary on consult. Cardiac status stable. Discharge planning. Plan: Denies chest pain, feels hungry, cookie provided Heart rate stable Blood pressure stable Cardiac status stable AICD/PPM interrogated, no arrhythmias On ASA 81 mg daily,Lipitor 40 mg daily, Coreg 3.125 mg BID, Digoxin 0.125 mg daily, Synthroid 100 mcg daily Aldactone 25 mg daily, Warfarin 4 mg daily Continue current treatment Continue current medications Nutritional support Discharge planning Will follow up Plan and treatment discussed with Dr. Naranjo
[2019-03-03] MEDS: Arformoterol 15 mcg/2 ml Inh Sol IH SCH ×2 (07:25→20:31)
[2019-03-03] MEDS: Budesonide 0.5 mg/2 ml Inhal Susp UD IH SCH ×2 (07:25→20:31)
[2019-03-03 08:02] LABS: MEAN CELL VOLUME 94.9 fl (80.0-105.0); MEAN CORPUSCULAR HEMOGLOBIN 32.1 pg (25.0-35.0); MEAN CORPUSCULAR HGB CONC 33.8 g/dl (31.0-37.0); MEAN PLATELET VOLUME 10.4 fl (7.0-11.0); RBC 3.12 10^6/uL (3.5-6.1); RED CELL DISTRIBUTION WIDTH 13.1 % (11.5-14.5); WHITE BLOOD COUNT 3.8 10^3/uL (4.5-11.0)
--- NOTE | 2019-03-03 08:03 | CP.PCM.PN ---
<RaheemAnderson Cleveland - Last Filed: 03/03/19 08:00> Subjective - Date & Time of Evaluation Date of Evaluation: 03/02/19 Time of Evaluation: 08:00 - Subjective Subjective: Heme/onc progress note - Raheem, PGY - 2 Patient seen and examined at bedside, states she feels much better than she did when she came in. Does state that she feels confused though. Still complaining of shortness of breath. Objective - Vital Signs/Intake and Output Vital Signs (last 24 hours): Temp Pulse Resp BP Pulse Ox 97.8 F 81 20 119/70 98 03/02/19 17:47 03/02/19 17:47 03/02/19 17:47 03/02/19 17:47 03/02/19 17:47 Intake and Output: 03/03/19 03/03/19 06:59 18:59 Intake Total 960 Balance 960 - Medications Medications: Current Medications Albuterol/Ipratropium (Duoneb 3 Mg/0.5 Mg (3 Ml) Ud) 3 ml IH Q2H PRN PRN Reason: Shortness of Breath Alprazolam (Xanax) 0.25 mg PO HS PRN; Protocol PRN Reason: Anxiety Stop: 03/08/19 12:38 Arformoterol Tartrate (Brovana) 15 mcg IH [id number] [facility] Last Admin: 03/03/19 07:25 Dose: Not Given Aspirin (Ecotrin) 81 mg PO DAILY [facility] Last Admin: 03/02/19 10:56 Dose: 81 mg Atorvastatin Calcium (Lipitor) 40 mg PO DIN [facility] Last Admin: 03/02/19 17:51 Dose: 40 mg Budesonide (Pulmicort Respules) 0.5 mg IH [id number] [facility] Last Admin: 03/03/19 07:25 Dose: Not Given Carvedilol (Coreg) 3.125 mg PO BID [facility] Last Admin: 03/02/19 17:51 Dose: 3.125 mg Citalopram Hydrobromide (Celexa) 5 mg PO DAILY [facility] Last Admin: 03/02/19 10:57 Dose: 5 mg Cyanocobalamin (Vitamin B12 1000 Mcg Tab) 1,000 mcg PO DAILY [facility] Last Admin: 03/02/19 17:50 Dose: 1,000 mcg Digoxin (Digoxin) 0.125 mg PO 1400 [facility] Last Admin: 03/02/19 14:57 Dose: 0.125 mg Donepezil HCl (Aricept) 10 mg PO DAILY [facility] Last Admin: 03/02/19 10:54 Dose: 10 mg Levothyroxine Sodium (Synthroid) 100 mcg PO 0600 [facility] Last Admin: 03/03/19 06:22 Dose: 100 mcg Megestrol Acetate (Megace) 40 mg PO DAILY [facility] Memantine (Namenda) 10 mg PO DAILY [facility] Last Admin: 03/02/19 10:56 Dose: 10 mg Methylprednisolone (Solu-Medrol) 40 mg IVP BID [facility] Pantoprazole Sodium (Protonix Ec Tab) 40 mg PO DAILY [facility] Last Admin: 03/02/19 10:54 Dose: 40 mg Spironolactone (Aldactone) 25 mg PO DAILY [facility] Last Admin: 03/02/19 10:56 Dose: 25 mg Warfarin Sodium (Coumadin) 4 mg PO SuMoWeFrSa@1800 HECTOR; Protocol Warfarin Sodium (Coumadin) 2 mg PO TuTh@1800 HECTOR; Protocol - Labs Labs: 03/02/19 06:50 03/02/19 06:50 PT 29.9 SECONDS (9.4-12.5) H 03/02/19 06:50 INR 2.65 03/02/19 06:50 APTT 43.5 Seconds (26.9-38.3) H 02/28/19 11:10 - Constitutional Appears: Well - Head Exam Head Exam: ATRAUMATIC, NORMAL INSPECTION, NORMOCEPHALIC - Eye Exam Eye Exam: EOMI, Normal appearance, PERRL Pupil Exam: NORMAL ACCOMODATION, PERRL - ENT Exam ENT Exam: Mucous Membranes Moist, Normal Exam - Neck Exam Neck Exam: Full ROM, Normal Inspection. absent: Lymphadenopathy - Respiratory Exam Respiratory Exam: Decreased Breath Sounds, Wheezes - Cardiovascular Exam Cardiovascular Exam: REGULAR RHYTHM, +S1, +S2. absent: Murmur - GI/Abdominal Exam GI & Abdominal Exam: Soft, Normal Bowel Sounds. absent: Tenderness - Extremities Exam Extremities Exam: Full ROM, Normal Capillary Refill, Normal Inspection. absent: Joint Swelling, Pedal Edema - Back Exam Back Exam: NORMAL INSPECTION - Neurological Exam Neurological Exam: Alert, Awake, CN II-XII Intact, Normal Gait, Oriented x3 - Psychiatric Exam Psychiatric exam: Normal Affect, Normal Mood - Skin Skin Exam: Dry, Intact, Normal Color, Warm - Additional Findings Additional findings: Patient is A/OX2 - not oriented to time Assessment and Plan - Assessment and Plan (Free Text) Assessment: 78-year-old female with a pertinent history of breast CA s/p right danny ast mastectomy with compression fractures, anemia, and A. fib and with a mechanical mitral valve (on Coumadin), presented to the ED for shortness of breath, productive cough and weakness. Oncology service consulted for history of breast CA. Given her Afib and mechanical valve, the patient 's goal INR is 2.5- 3.5; she was subtherapeutic on admission but is at 2.65 today. Of note, patient had low B12 on last admission Plan - Give Vitamin B12 daily; obtain B12 levels - Change Coumadin to 2 mg PO T/Th and 4 mg PO [id number] - Start duonebs, solumederol as per orders <Alexandra Newman P - Last Filed: 03/04/19 16:14> Objective - Vital Signs/Intake and Output Vital Signs (last 24 hours): Temp Pulse Resp BP Pulse Ox 98.0 F 81 18 131/64 100 03/04/19 06:00 03/04/19 10:37 03/04/19 06:00 03/04/19 10:37 03/03/19 16:38 - Medications Medications: Current Medications Albuterol/Ipratropium (Duoneb 3 Mg/0.5 Mg (3 Ml) Ud) 3 ml IH Q2H PRN PRN Reason: Shortness of Breath Last Admin: 03/03/19 11:42 Dose: 3 ml Alprazolam (Xanax) 0.25 mg PO HS PRN; Protocol PRN Reason: Anxiety Stop: 03/08/19 12:38 Arformoterol Tartrate (Brovana) 15 mcg IH [id number] [facility] Last Admin: 03/04/19 07:28 Dose: Not Given Aspirin (Ecotrin) 81 mg PO DAILY [facility] Last Admin: 03/04/19 10:38 Dose: 81 mg Atorvastatin Calcium (Lipitor) 40 mg PO DIN [facility] Last Admin: 03/03/19 17:41 Dose: 40 mg Budesonide (Pulmicort Respules) 0.5 mg IH [id number] [facility] Last Admin: 03/04/19 07:28 Dose: Not Given Carvedilol (Coreg) 3.125 mg PO BID [facility] Last Admin: 03/04/19 10:37 Dose: 3.125 mg Digoxin (Digoxin) 0.125 mg PO MWF@1400 [facility] Last Admin: 03/04/19 14:23 Dose: 0.125 mg Donepezil HCl (Aricept) 10 mg PO DAILY [facility] Last Admin: 03/04/19 10:36 Dose: 10 mg Levothyroxine Sodium (Synthroid) 50 mcg PO ACB [facility] Megestrol Acetate (Megace) 40 mg PO DAILY [facility] Last Admin: 03/04/19 10:38 Dose: 40 mg Memantine (Namenda) 10 mg PO DAILY [facility] Last Admin: 03/04/19 10:38 Dose: 10 mg Methylprednisolone (Solu-Medrol) 40 mg IVP DAILY [facility] Pantoprazole Sodium (Protonix Ec Tab) 40 mg PO DAILY [facility] Last Admin: 03/04/19 10:40 Dose: 40 mg Spironolactone (Aldactone) 25 mg PO DAILY [facility] Last Admin: 03/04/19 10:36 Dose: 25 mg Tramadol HCl (Ultram) 50 mg PO TID [facility] Last Admin: 03/04/19 14:22 Dose: 50 mg Warfarin Sodium (Coumadin) 4 mg PO SuMoWeFrSa@1800 HECTOR; Protocol Warfarin Sodium (Coumadin) 2 mg PO TuTh@1800 HECTOR; Protocol Last Admin: 03/03/19 17:40 Dose: 2 mg - Labs Labs: 03/03/19 07:50 03/04/19 11:20 PT 37.0 SECONDS (9.4-12.5) H 03/04/19 06:30 INR 3.27 03/04/19 06:30 APTT 43.5 Seconds (26.9-38.3) H 02/28/19 11:10 Attending/Attestation - Attestation I have personally seen and examined this patient.: Yes I have fully participated in the care of the patient.: Yes I have reviewed all pertinent clinical information, including history, physical exam and plan: Yes
[2019-03-03 08:08] LABS: INR 3.03; PROTHROMBIN TIME 34.2 SECONDS (9.4-12.5)
[2019-03-03 08:15] LABS: ALB/GLOB RATIO 1.2 (1.1-1.8); ALBUMIN 3.9 g/dL (3.0-4.8); CALCIUM 9.3 mg/dL (8.4-10.5)
[2019-03-03] MEDS: MethylPREDNISolone 40 mg Vial IVP SCH ×2 (09:21→18:35)
[2019-03-03] MEDS: Pantoprazole 40 mg EC Tab PO SCH (09:21)
--- NOTE | 2019-03-03 10:47 | RAD ---
Date of service: 03/03/2019 HISTORY: SOB with high BNP COMPARISON: 02/28/2019 TECHNIQUE: 1 view obtained. FINDINGS: LUNGS: No active pulmonary disease. PLEURA: No significant pleural effusion identified, no pneumothorax apparent. CARDIOVASCULAR: No aortic atherosclerotic calcification present. Mild cardiomegaly. No pulmonary vascular congestion. OSSEOUS STRUCTURES: Sternal wires VISUALIZED UPPER ABDOMEN: Normal. OTHER FINDINGS: Pacemaker IMPRESSION: No active disease.
--- NOTE | 2019-03-03 10:49 | CT ---
Date of service: 03/02/2019 PROCEDURE: CT Abdomen and Pelvis without intravenous contrast HISTORY: left sided abdom. pain, COMPARISON: 02/09/2019 TECHNIQUE: Technique. Contrast dose: Radiation dose: Total exam DLP = 188.37 mGy-cm. This CT exam was performed using one or more of the following dose reduction techniques: Automated exposure control, adjustment of the mA and/or kV according to patient size, and/or use of iterative reconstruction technique. FINDINGS: LOWER THORAX: Cardiomegaly. LIVER: Lobulated contour of the liver suggesting underlying cirrhosis; correlate liver function studies. No gross lesion or ductal dilatation. GALLBLADDER AND BILE DUCTS: Unremarkable. PANCREAS: Unremarkable. No gross lesion or ductal dilatation. SPLEEN: Splenomegaly. ADRENALS: Unremarkable. No mass. KIDNEYS AND URETERS: Severe right renal atrophy. No hydronephrosis. No solid mass. VASCULATURE: No aortic aneurysm. Diffuse vascular calcifications with a femoral to femoral bypass graft. BOWEL: Unremarkable. No obstruction. No gross mural thickening. APPENDIX: Unremarkable. Normal appendix. PERITONEUM: Unremarkable. No free fluid. No free air. LYMPH NODES: Unremarkable. No enlarged lymph nodes. BLADDER: Unremarkable. REPRODUCTIVE: Unremarkable. BONES: No acute fracture. OTHER FINDINGS: None. IMPRESSION: Lobulated contour of the liver suggesting underlying cirrhosis; correlate liver function studies. Severe right renal atrophy. Diffuse vascular calcifications with a femoral to femoral bypass graft.
--- NOTE | 2019-03-03 11:29 | PN ---
DATE: 03/03/2019 SUBJECTIVE: The patient has no complaints of any chest pain or shortness of breath. No headaches. PHYSICAL EXAMINATION: VITAL SIGNS: Temperature is 97.9, pulse of 80, blood pressure is 111/65, respirations 20. GENERAL: The patient is lying in bed, flat, comfortable. HEENT: No oral lesion. Anicteric sclerae. Moist mucosa. NECK: No JVD, adenopathy, or thyromegaly. CARDIOVASCULAR: S1 and S2, regular. No murmurs, rubs, or gallops. LUNGS: Clear to auscultation bilaterally. No wheeze, rales, or rhonchi. ABDOMEN: Bowel sounds are positive, soft, nontender and nondistended. EXTREMITIES: No cyanosis, clubbing or edema. LABORATORY DATA: White count of 3.8, hemoglobin is 10, creatinine is 1.3. ASSESSMENT: 1. Failure to thrive. 2. Coronary artery disease status post coronary artery bypass graft. 3. Mitral valve replacement. 4. Atrial fibrillation, on anticoagulation with Coumadin 5. Hypertension. 6. Chronic obstructive pulmonary disease. 7. Chronic anemia. 8. Anxiety. 9. Depression. 10. Hypothyroidism. PLAN: The patient was able to ambulate fairly well. She may need subacute with long-term placement. She says that she prefers to go home, but it is unsafe for her. She does not remember all the medications that she takes. She says that she does have friends who check on her, but are not there all the time. The patient is on Aricept for dementia. She is going to be on Coumadin for anticoagulation. We going to continue with digoxin for the atrial fibrillation. The patient is on Lipitor for dyslipidemia. She has been started on Megace for appetite stimulation. The patient is on levothyroxine for hypothyroidism. A CT of the abdomen and pelvis has been ordered. The patient is on Xanax as needed. The patient had an ejection fraction of 35% from a cath done in 08/2018. Joaquín Lincoln MD
--- NOTE | 2019-03-03 12:42 | PN ---
DATE: 03/03/2019 REFERRING PHYSICIAN: Dr. Lincoln. SUBJECTIVE: The patient is seen lying in bed, no acute distress. No overnight events reported. She states she feels a little tried this morning. Reports having some shortness of breath with exertion. No coughing. No headache, rhinitis, chest pain, abdominal pain, nausea, vomiting, diarrhea, leg pain, or leg swelling reported. OBJECTIVE: VITAL SIGNS: Blood pressure 101/65, pulse 80, temperature 97.9, oxygen saturation 98% on room air. GENERAL: No acute distress. HEENT: Moist mucous membranes. Crowded airway. Small oral cavity. NECK: Supple. No JVD. LUNGS: Expiratory wheezing bilaterally. CARDIOVASCULAR: S1 and S2. ABDOMEN: Soft, nontender. No distention. No organomegaly. EXTREMITIES: No bilateral lower extremity edema. NEUROLOGIC: Awake, alert, and verbal. Following commands. MEDICATIONS: Reviewed. DuoNeb 3 mL inhalation every 12 hours p.r.n., Xanax 0.25 mg at bedtime p.r.n., Brovana 15 mcg every 12 hours, aspirin 81 mg daily, Lipitor 40 mg at dinner, Pulmicort 0.5 mg inhalation every 12 hours, Coreg 3.125 mg twice a day, Celexa 5 mg daily, vitamin B12 1000 mcg daily, digoxin 0.125 mg daily, Aricept 10 mg daily, Synthroid 100 mcg daily, Megace 40 mg daily, Namenda 10 mg daily, Solu-Medrol 40 mg IV push twice a day, Protonix 40 mg daily, spironolactone 25 mg daily, Coumadin 2 mg Saturday and , 4 mg Saturday, Saturday, Saturday, Saturday and Saturday. LABORATORY DATA: Reviewed. WBC 3.8, RBC 3.12, hemoglobin 10, hematocrit 29.6, and platelet 133. PT 34.2 and INR 3.03. Sodium 140, potassium 5, chloride 106, CO2 of 26, anion gap 13, BUN 40, creatinine 1.3, GFR 40, random glucose 166, calcium 9.3, total bilirubin 0.5, AST 22, ALT 24, alkaline phosphatase 133, ProBNP 16359, total protein 7.1, albumin 3.9, globulin 3.2, albumin-globulin ratio 1.2. Triglycerides 99, cholesterol 126, LDL cholesterol 66, HDL cholesterol 34. TSH 0.09, and vitamin B12 of 394. Chest x-ray, no active disease. Abdomen CT shows lobulated contour of the liver suggesting underlying cirrhosis, severe right renal atrophy, diffuse vascular calcification with a [id number] bypass graft. IMPRESSION AND PLAN: Chronic obstructive lung disease, cardiomyopathy, coronary artery disease, history of valve replacement, atrial fibrillation with pacemaker, hypertension, anemia, hypothyroidism steroid-dependent, history of breast cancer. Pulmonary point of view, continue inhaled bronchodilator. Continue steroids. Head of bed elevated 45 degrees. Sleep apnea precaution, careful with sedation. The patient has bronchial asthma, possible the patient may have cardiac asthma as well. Recommend that the patient be on diuretic afterload reducers. Procalcitonin pending. We will follow up when available. Continue Cardiology followup, out of bed to chair. Physical therapy recommended. The patient was seen and examined by Dr. Justice. Discussed assessment and plan as described above. The patient was seen and examined by Juan Knutson, nurse practitioner. Discussed assessment and plan as described above. Thank you for this consult, we will follow with you. Zenia Martinez APN Cyril Jutsice MD
[2019-03-03] MEDS: Digoxin 125 mcg (0.125 mg) Tab PO SCH (15:54)
--- NOTE | 2019-03-03 23:23 | CP.PCM.PN ---
<Anderson Maciel Megha - Last Filed: 03/03/19 23:19> Subjective - Date & Time of Evaluation Date of Evaluation: 03/03/19 Time of Evaluation: 23:20 - Subjective Subjective: Heme/onc progress note - Raheem PGY - 2 Patient seen and examined at bedside with no acute complaints. Discussion was had with patient about going to TCU. She states that she does not feel completely up to par yet. Objective - Vital Signs/Intake and Output Vital Signs (last 24 hours): Temp Pulse Resp BP Pulse Ox 98.2 F 80 20 141/66 100 03/03/19 16:38 03/03/19 16:38 03/03/19 16:38 03/03/19 16:38 03/03/19 16:38 Intake and Output: 03/03/19 03/04/19 18:59 06:59 Intake Total 1320 Balance 1320 - Medications Medications: Current Medications Albuterol/Ipratropium (Duoneb 3 Mg/0.5 Mg (3 Ml) Ud) 3 ml IH Q2H PRN PRN Reason: Shortness of Breath Last Admin: 03/03/19 11:42 Dose: 3 ml Alprazolam (Xanax) 0.25 mg PO HS PRN; Protocol PRN Reason: Anxiety Stop: 03/08/19 12:38 Arformoterol Tartrate (Brovana) 15 mcg IH [id number] [facility] Last Admin: 03/03/19 20:31 Dose: 15 mcg Aspirin (Ecotrin) 81 mg PO DAILY [facility] Last Admin: 03/03/19 09:21 Dose: 81 mg Atorvastatin Calcium (Lipitor) 40 mg PO DIN [facility] Last Admin: 03/03/19 17:41 Dose: 40 mg Budesonide (Pulmicort Respules) 0.5 mg IH [id number] [facility] Last Admin: 03/03/19 20:31 Dose: 0.5 mg Carvedilol (Coreg) 3.125 mg PO BID [facility] Last Admin: 03/03/19 17:40 Dose: 3.125 mg Citalopram Hydrobromide (Celexa) 5 mg PO DAILY [facility] Last Admin: 03/03/19 09:22 Dose: 5 mg Digoxin (Digoxin) 0.125 mg PO 1400 [facility] Last Admin: 05/21/19 15:54 Dose: 0.125 mg Donepezil HCl (Aricept) 10 mg PO DAILY [facility] Last Admin: 03/03/19 09:21 Dose: 10 mg Levothyroxine Sodium (Synthroid) 100 mcg PO 0600 [facility] Last Admin: 03/03/19 06:22 Dose: 100 mcg Megestrol Acetate (Megace) 40 mg PO DAILY [facility] Last Admin: 03/03/19 09:22 Dose: 40 mg Memantine (Namenda) 10 mg PO DAILY [facility] Last Admin: 03/03/19 09:31 Dose: 10 mg Methylprednisolone (Solu-Medrol) 40 mg IVP BID [facility] Last Admin: 03/03/19 18:35 Dose: 40 mg Pantoprazole Sodium (Protonix Ec Tab) 40 mg PO DAILY [facility] Last Admin: 03/03/19 09:21 Dose: 40 mg Spironolactone (Aldactone) 25 mg PO DAILY [facility] Last Admin: 03/03/19 09:22 Dose: 25 mg Tramadol HCl (Ultram) 50 mg PO TID [facility] Last Admin: 03/03/19 17:39 Dose: 50 mg Warfarin Sodium (Coumadin) 4 mg PO SuMoWeFrSa@1800 [facility]; Protocol Warfarin Sodium (Coumadin) 2 mg PO TuTh@1800 [facility]; Protocol Last Admin: 03/03/19 17:40 Dose: 2 mg - Labs Labs: 03/03/19 07:50 03/03/19 07:50 PT 34.2 SECONDS (9.4-12.5) H 03/03/19 07:50 INR 3.03 03/03/19 07:50 APTT 43.5 Seconds (26.9-38.3) H 02/28/19 11:10 - Constitutional Appears: Well - Head Exam Head Exam: ATRAUMATIC, NORMAL INSPECTION, NORMOCEPHALIC - Eye Exam Eye Exam: EOMI, Normal appearance, PERRL Pupil Exam: NORMAL ACCOMODATION, PERRL - ENT Exam ENT Exam: Mucous Membranes Moist, Normal Exam - Neck Exam Neck Exam: Full ROM, Normal Inspection. absent: Lymphadenopathy - Respiratory Exam Respiratory Exam: Clear to Ausculation Bilateral, NORMAL BREATHING PATTERN - Cardiovascular Exam Cardiovascular Exam: REGULAR RHYTHM, +S1, +S2. absent: Murmur - GI/Abdominal Exam GI & Abdominal Exam: Soft, Normal Bowel Sounds. absent: Tenderness - Extremities Exam Extremities Exam: Full ROM, Normal Capillary Refill, Normal Inspection. absent: Joint Swelling, Pedal Edema - Back Exam Back Exam: NORMAL INSPECTION - Neurological Exam Neurological Exam: Alert, Awake, CN II-XII Intact, Normal Gait, Oriented x3 - Psychiatric Exam Psychiatric exam: Normal Affect, Normal Mood - Skin Skin Exam: Dry, Intact, Normal Color, Warm Assessment and Plan - Assessment and Plan (Free Text) Assessment: 78-year-old female with a pertinent history of breast CA s/p right breast mastectomy with compression fractures, anemia, and A. fib and with a mechanical mitral valve (on Coumadin), presented to the ED for shortness of breath, productive cough and weakness. Oncology service consulted for history of breast CA. Given her Afib and mechanical valve, the patient 's goal INR is 2.5- 3.5; she was subtherapeutic on admission but is at 2.65 today. Of note, patient had low B12 on last admission Plan - Stop Vit B12 (new levels were normal) - Keep Coumadin at 2 mg PO / and 4 mg PO [id number] - Start duonebs, solumederol as per orders <Alexandra Newman P - Last Filed: 03/04/19 16:13> Objective - Vital Signs/Intake and Output Vital Signs (last 24 hours): Temp Pulse Resp BP Pulse Ox 98.0 F 81 18 131/64 100 03/04/19 06:00 03/04/19 10:37 03/04/19 06:00 03/04/19 10:37 03/03/19 16:38 - Medications Medications: Current Medications Albuterol/Ipratropium (Duoneb 3 Mg/0.5 Mg (3 Ml) Ud) 3 ml IH Q2H PRN PRN Reason: Shortness of Breath Last Admin: 03/03/19 11:42 Dose: 3 ml Alprazolam (Xanax) 0.25 mg PO HS PRN; Protocol PRN Reason: Anxiety Stop: 03/08/19 12:38 Arformoterol Tartrate (Brovana) 15 mcg IH [id number] [facility] Last Admin: 03/04/19 07:28 Dose: Not Given Aspirin (Ecotrin) 81 mg PO DAILY [facility] Last Admin: 03/04/19 10:38 Dose: 81 mg Atorvastatin Calcium (Lipitor) 40 mg PO DIN [facility] Last Admin: 03/03/19 17:41 Dose: 40 mg Budesonide (Pulmicort Respules) 0.5 mg IH [id number] [facility] Last Admin: 03/04/19 07:28 Dose: Not Given Carvedilol (Coreg) 3.125 mg PO BID [facility] Last Admin: 03/04/19 10:37 Dose: 3.125 mg Digoxin (Digoxin) 0.125 mg PO MWF@1400 [facility] Last Admin: 03/04/19 14:23 Dose: 0.125 mg Donepezil HCl (Aricept) 10 mg PO DAILY [facility] Last Admin: 03/04/19 10:36 Dose: 10 mg Levothyroxine Sodium (Synthroid) 50 mcg PO ACB [facility] Megestrol Acetate (Megace) 40 mg PO DAILY [facility] Last Admin: 03/04/19 10:38 Dose: 40 mg Memantine (Namenda) 10 mg PO DAILY [facility] Last Admin: 03/04/19 10:38 Dose: 10 mg Methylprednisolone (Solu-Medrol) 40 mg IVP DAILY [facility] Pantoprazole Sodium (Protonix Ec Tab) 40 mg PO DAILY [facility] Last Admin: 03/04/19 10:40 Dose: 40 mg Spironolactone (Aldactone) 25 mg PO DAILY [facility] Last Admin: 03/04/19 10:36 Dose: 25 mg Tramadol HCl (Ultram) 50 mg PO TID [facility] Last Admin: 03/04/19 14:22 Dose: 50 mg Warfarin Sodium (Coumadin) 4 mg PO SuMoWeFrSa@1800 [facility]; Protocol Warfarin Sodium (Coumadin) 2 mg PO TuTh@1800 [facility]; Protocol Last Admin: 03/03/19 17:40 Dose: 2 mg - Labs Labs: 03/03/19 07:50 03/04/19 11:20 PT 37.0 SECONDS (9.4-12.5) H 03/04/19 06:30 INR 3.27 03/04/19 06:30 APTT 43.5 Seconds (26.9-38.3) H 02/28/19 11:10 Attending/Attestation - Attestation I have personally seen and examined this patient.: Yes I have fully participated in the care of the patient.: Yes I have reviewed all pertinent clinical information, including history, physical exam and plan: Yes
--- NOTE | 2019-03-04 01:20 | CON ---
DATE: 03/03/2019 CONSULTATION NOTE HISTORY OF PRESENT ILLNESS: The patient is a 78-year-old female with reported history of coronary artery disease status post CABG and mechanical valve, diabetes type 2, hypertension, hypothyroidism, COPD, GI bleed, and anemia. The patient was admitted on the medical side for generalized weakness. The patient has a history of possible dementia. Psych consult was involved. For competency to make decisions, this lyric writer is not sure about what decisions this lyric writer needs to evaluate. This lyric writer had prolonged conversation with Se[employer] Stay Stitcher. As per Seam Stay Stitcher, the patient has supportive family/friend and family meeting took place today at the morning time with the patient's family as well as the patient's friend and medical proxy. At the present moment, Seam Stay Stitcher is trying to advocate for the patient to increase Home Health Services. The patient's family does not want the patient to be placed at the correction. This lyric writer evaluated the patient. The patient presented to be pleasantly confused about the date, but the patient knows that she is in the hospital. The patient has a tendency of confabulating, but did not present to be acutely psychotic. The patient denied that she feels depressed, hopeless, or helpless. The patient is aware of the reason for her admission to be on the medical side. The patient reported that she does not have history of mental illness. The patient reported that she does not have history of being depressed or hopeless or helpless. The patient denied suicidal attempts in the past and denied any active suicidal ideation at the moment of the interview. VITAL SIGNS: Reviewed. Temperature 97.9, pulse is 18, blood pressure 111/65, oxygen saturation is 98. Based on the reports from the medical side and Se[employer] Stay Stitcher, Medical team feels that the patient needs to be placed. Based on the report, the patient's friend who was supportive, right now she is planning on moving back to her country and will not be able to help take care of the patient. MEDICATIONS: Medications were reviewed. The patient is on DuoNeb, Xanax as needed, Brovana, aspirin, Lipitor, Pulmicort, Coreg, Celexa 5 mg daily, digoxin, Aricept, Synthroid, Megace, Namenda, Solu-Medrol, Protonix, Aldactone, warfarin, and Coumadin. Vital signs were reviewed, seem to be stable. LABORATORY DATA: Labs were reviewed. Coagulation was reviewed. Chemistry reviewed. Toxicology reviewed. Microbiology reviewed. MENTAL STATUS EXAMINATION: The patient presented to be pleasantly confused, intermittent eye contact. Mood described as okay. Affect was constricted, but at times reactive. Thought process: At times, the patient appears to be confabulating. The patient knows that she is in the hospital, but does not know what is the date today. Thought content: The patient denied any psychotic symptoms, denied feeling of hopelessness or helplessness, denied intent or plan to kill herself. Insight and judgment seem to be limited. Impulses are so far well controlled, but the patient has history of being noncompliant with the medications and as per director case management's note, the patient has history of increase of being noncompliant with the medications and combative at times and periods of confusion. IMPRESSION: Most likely, the patient has dementia. This lyric writer is not sure if the patient has history of depression, but at the same time, the patient denied feeling depressed. The patient appears more demented and confused rather than depressed and hopeless. In regard to the question about decision-making capacity, this lyric writer is not sure of what decisions we are talking about, whether it is disposition plan or whether it is medication management or whether to participate in regard of discharge planning. This lyric writer would get back to this patient, will speak to the primary care team and advise accordingly. Thank you very much for letting me participate in the care of your patient. Eveline Martin MD MTDD
[2019-03-04 07:01] LABS: INR 3.27
--- NOTE | 2019-03-04 07:03 | CP.PCM.PN ---
Subjective - Date & Time of Evaluation Date of Evaluation: 03/04/19 Time of Evaluation: 06:25 - Subjective Subjective: Awake, alert, no distress, feels okay, wanted to go home Reason for consultation and follow up: Cardiac follow up of coronary artery d isease, post CABG, post stents, admitted for generalized weakness, history of hypertension, hypothyroidism,, COPD, GI bleed, anemia, and anxiety/depression, Seen and examined by me and Dr. Naranjo Objective - Vital Signs/Intake and Output Vital Signs (last 24 hours): Temp Pulse Resp BP Pulse Ox 98.2 F 80 20 141/66 100 03/03/19 16:38 03/03/19 16:38 03/03/19 16:38 03/03/19 16:38 03/03/19 16:38 - Medications Medications: Current Medications Albuterol/Ipratropium (Duoneb 3 Mg/0.5 Mg (3 Ml) Ud) 3 ml IH Q2H PRN PRN Reason: Shortness of Breath Last Admin: 03/03/19 11:42 Dose: 3 ml Alprazolam (Xanax) 0.25 mg PO HS PRN; Protocol PRN Reason: Anxiety Stop: 03/08/19 12:38 Arformoterol Tartrate (Brovana) 15 mcg IH [id number] [facility] Last Admin: 03/03/19 20:31 Dose: 15 mcg Aspirin (Ecotrin) 81 mg PO DAILY [facility] Last Admin: 03/03/19 09:21 Dose: 81 mg Atorvastatin Calcium (Lipitor) 40 mg PO DIN [facility] Last Admin: 03/03/19 17:41 Dose: 40 mg Budesonide (Pulmicort Respules) 0.5 mg IH [id number] [facility] Last Admin: 03/03/19 20:31 Dose: 0.5 mg Carvedilol (Coreg) 3.125 mg PO BID [facility] Last Admin: 03/03/19 17:40 Dose: 3.125 mg Citalopram Hydrobromide (Celexa) 5 mg PO DAILY [facility] Last Admin: 03/03/19 09:22 Dose: 5 mg Digoxin (Digoxin) 0.125 mg PO 1400 [facility] Last Admin: 03/03/19 15:54 Dose: 0.125 mg Donepezil HCl (Aricept) 10 mg PO DAILY [facility] Last Admin: 03/03/19 09:21 Dose: 10 mg Levothyroxine Sodium (Synthroid) 100 mcg PO 0600 [facility] Last Admin: 03/03/19 06:22 Dose: 100 mcg Megestrol Acetate (Megace) 40 mg PO DAILY [facility] Last Admin: 03/03/19 09:22 Dose: 40 mg Memantine (Namenda) 10 mg PO DAILY [facility] Last Admin: 03/03/19 09:31 Dose: 10 mg Methylprednisolone (Solu-Medrol) 40 mg IVP BID [facility] Last Admin: 03/03/19 18:35 Dose: 40 mg Pantoprazole Sodium (Protonix Ec Tab) 40 mg PO DAILY [facility] Last Admin: 03/03/19 09:21 Dose: 40 mg Spironolactone (Aldactone) 25 mg PO DAILY [facility] Last Admin: 03/03/19 09:22 Dose: 25 mg Tramadol HCl (Ultram) 50 mg PO TID [facility] Last Admin: 03/03/19 17:39 Dose: 50 mg Warfarin Sodium (Coumadin) 4 mg PO SuMoWeFrSa@1800 [facility]; Protocol Warfarin Sodium (Coumadin) 2 mg PO TuTh@1800 [facility]; Protocol Last Admin: 03/03/19 17:40 Dose: 2 mg - Labs Labs: 03/03/19 07:50 03/03/19 07:50 PT 37.0 SECONDS (9.4-12.5) H 03/04/19 06:30 INR 3.27 03/04/19 06:30 APTT 43.5 Seconds (26.9-38.3) H 02/28/19 11:10 - Constitutional Appears: Non-toxic, No Acute Distress - Head Exam Head Exam: NORMAL INSPECTION, NORMOCEPHALIC - Eye Exam Eye Exam: Normal appearance Pupil Exam: NORMAL ACCOMODATION - ENT Exam ENT Exam: Mucous Membranes Moist, Normal Exam - Respiratory Exam Respiratory Exam: Decreased Breath Sounds, Clear to Ausculation Bilateral, NORMAL BREATHING PATTERN - Cardiovascular Exam Cardiovascular Exam: +S1, +S2 Additional comments: AICD/PPM - GI/Abdominal Exam GI & Abdominal Exam: Soft, Normal Bowel Sounds - Extremities Exam Extremities Exam: Full ROM, Normal Capillary Refill - Neurological Exam Neurological Exam: Alert, Awake, Oriented x3 - Psychiatric Exam Psychiatric exam: Normal Affect, Normal Mood - Skin Skin Exam: Dry, Normal Color, Warm Assessment and Plan - Assessment and Plan (Free Text) Assessment: A 78 year old female who came in to the ER due to generalized weakness. History of [place], CHF, TIA/ CVA, coronary artery disease, post CABG and mitral valve replacement 20 years ago, atrial fibrillation, on Coumadin , post stents, hypertension, hypothyroidism,breast cancer, COPD, GI bleed, anemia, and anxiety/depression,AICD/PPM, diabetes, renal insufficiency. Troponin normal. Echo done on 01/31/18 showed LVEF 40-45%, mild aortic regurgitation,moderate valvular aortic stenosis, mechanical mitral valve, normal functioning, trace MR, mild to moderate tricuspid regurgitation RVSP 42 mmHg, mild pulmonary hypertension, no vegetation. Cardiac cath done on 09/09/18 showed tangirnaq triple vessel disease, LVEF 25%, successful PTCA of totally occluded RCA, proximal and distal, and POBA of mid RCA. Recently she had PPM change. Admitted for generalized weakness,poor oral intake. No follow up with Dr. Garrido regarding PPM/AICD ([place]). PPM/AICD and atrial fibrillation baseline heart rhythm, No evidence of Ventricular tachycardia. 5-9 years of battery life. Pulmonary on consult. Cardiac status stable. Clinically improved. Evaluated by Psychiatry.Discharge planning.No further cardiac work up at this time. Plan: Clinically improved Denies chest pain Heart rate stable Blood pressure stable Cardiac status stable On ASA 81 mg daily,Lipitor 40 mg daily, Coreg 3.125 mg BID, Digoxin 0.125 mg daily, Synthroid 100 mcg daily Aldactone 25 mg daily, Warfarin 4 mg daily Continue current treatment Continue current medications Nutritional support Discharge planning No further cardiac work up at this time. Will follow up Plan and treatment discussed with Dr. Naranjo
[2019-03-04] MEDS: Levothyroxine 100 MCG TAB PO SCH (07:04)
[2019-03-04] MEDS: Budesonide 0.5 mg/2 ml Inhal Susp UD IH SCH (07:28)
[2019-03-04] MEDS: Arformoterol 15 mcg/2 ml Inh Sol IH SCH (07:28)
[2019-03-04] MEDS: Pantoprazole 40 mg EC Tab PO SCH (10:40)
[2019-03-04] MEDS: MethylPREDNISolone 40 mg Vial IVP SCH (10:40)
[2019-03-04 11:04] LABS: FREE T4 1.65 ng/dL (0.78-2.19)
[2019-03-04 11:17] LABS: T3 0.82 ng/mL (0.97-1.69)
[2019-03-04 11:54] LABS: CALCIUM 9.2 mg/dL (8.4-10.5)
--- NOTE | 2019-03-04 12:10 | DS ---
HISTORY OF PRESENT ILLNESS: This is a 78-year-old female who had coming to the hospital because of failure to thrive. The patient is trying to feel better. She is able to eat better. She is no complaints of any chest pain. No shortness of breath. No headaches or dizziness. The patient was having abdominal pain who was had a CT of the abdomen done, it shows severe right renal atrophy with lobulated contour of the liver suggesting underlying cirrhosis. The patient is also seen by Psychiatry. The patient most likely has dementia. She is agreeable to go to Transitional Care Unit and we will get services at home with an aide that has been planned by social work and family. PHYSICAL EXAMINATION: VITAL SIGNS: Temperature is 98.2, pulse of 80, blood pressure 141/66, respirations 20 and O2 saturation is 100%. GENERAL: The patient is lying in bed, flat, comfortable. HEENT: No oral lesion. Anicteric sclerae. Moist mucosa. NECK: No JVD, adenopathy, or thyromegaly. CARDIOVASCULAR: S1 and S2, regular. No murmurs, rubs, or gallops. LUNGS: Clear to auscultation bilaterally. No wheeze, rales, or rhonchi. ABDOMEN: Bowel sounds are positive, soft, nontender and nondistended. EXTREMITIES: No cyanosis, clubbing or edema. ASSESSMENT: 1. Failure to thrive. 2. Coronary artery disease, status post coronary artery bypass graft. 3. Mitral valve replacement. 4. Atrial fibrillation on Coumadin. 5. Hypertension. 6. Chronic obstruction pulmonary disease. 7. Chronic anemia. 8. Anxiety. 9. Depression. 10. Hypothyroidism. 11. Severe right renal atrophy. 12. Probable cirrhosis. 13. Dementia, Alzheimer's type. PLAN: The patient is currently comfortable. She is going to be on Aldactone for her cirrhosis. The patient is on Depakote for dementia. The patient is on citalopram for anxiety. She is on Coumadin. She is going to continue with memantine for dementia. She is on Synthroid for hypothyroidism. The patient is on heart healthy diet. Joaquín Lincoln MD
--- NOTE | 2019-03-04 13:27 | PN ---
DATE: 03/04/2019 SUBJECTIVE: The patient is a 78-year-old female who was admitted on the medical side for generalized weakness. The patient has multiple medical issues including coronary artery disease, CABG, mechanical mitral valve, diabetes, hypertension, hypothyroidism, COPD, GI bleed and anemia and many more. Psych consult was called for evaluation of capacity. In regards of disposition plan to make decision about disposition plan. At present moment, Configuration Management Analyst did a great job in regard of arranging family meeting with friends and health care proxy and at present moment, the patient is scheduled to be transferred to transitional care unit for physical therapy and after that the patient will go back home with services for 40 hours and the rest of the time friends and family will help to manage the patient in the community. The patient is happy about this plan and it sounds more realistic and more safe. This short story writer had prolonged conversation with Dr. Lincoln, today. Discussed treatment options as well as after care plan. Discussed with Configuration Management Analyst yesterday. The patient was seen and examined today. The patient presented to be alert, very pleasant. There is no agitation or aggression. The patient knows that she is in the hospital, but she does not know what is the date today. The patient denied any mood symptoms denied feeling of hopelessness denied thoughts of harming herself or others, denied intent or plan. The patient does not present to be depressed, psychotic, or in any distress. PHYSICAL EXAMINATION: VITAL SIGNS: Stable. Temperature 98.0, pulse is 81, blood pressure 133/64, respirations 18, oxygen saturation is 100. MEDICATIONS: Reviewed. From the psychiatric standpoint, this short story writer will discontinue Celexa because it could effect QTC. Also it could affect bleeding time and the patient is already on Coumadin. LABORATORY DATA: Reviewed. Coagulation reviewed. Chemistry reviewed and toxicology reviewed. MENTAL STATUS EXAMINATION: The patient presented to be alert and oriented, pleasant, cooperative. The patient knows that she is in the hospital, but does not know what is the date today. Mood described as okay. Affect was reactive, mood congruent. Thought process was at times confabulating, but not disorganized. Thought content denied any symptoms of depression, denied thoughts of harming herself or others. The patient is not psychotic. Insight and judgment seems to be improving. Impulses are well controlled. IMPRESSION: The patient has history of dementia, delirium cannot be excluded. The patient has multiple medical issues. Please see above. The patient does not present to be depressed or anxious or psychotic. PLAN: Social Service is to follow up. Family is involved. Discussed with Dr. Lincoln. This short story writer discontinued Celexa because it could affect QTC prolongation as well as bleeding time. So far, the patient presented very well not in any imminent danger to self or others. Please re-consult as needed. Eveline Martin MD
[2019-03-04] MEDS ORDERED: Digoxin 125 mcg (0.125 mg) Tab PO SCH (14:00)
[2019-03-04 14:23] VITALS: PULSE 72
--- NOTE | 2019-03-04 15:00 | PN ---
DATE: 03/04/2019 PULMONARY PROGRESS NOTE REFERRING DOCTOR: Dr. Lincoln. SUBJECTIVE: The patient is seen sitting up at the edge of the bed. No acute distress. No overnight events reported. Reports feeling well today. No headaches, rhinitis, cough, shortness of breath, chest pain, abdominal pain, nausea, vomiting, diarrhea, leg pain, or leg swelling reported. PHYSICAL EXAMINATION: GENERAL: No acute distress. VITAL SIGNS: Blood pressure 131/64, pulse 81, temperature 98, oxygen saturation 100% on room air. HEENT: Moist mucous membranes. Crowded airways. Small oral cavity. NECK: Supple. No JVD. LUNGS: Decreased breath sounds. No audible wheezing. CARDIOVASCULAR: S1 and S2. ABDOMEN: Soft, nontender. No distention. No organomegaly. EXTREMITIES: No bilateral lower extremity edema. NEUROLOGICAL: Awake, alert and verbal. Following commands. MEDICATIONS: Reviewed. DuoNeb 3 mL inhalation every 2 hours p.r.n., Xanax 0.25 mg at bedtime p.r.n., Brovana 15 mcg inhalation every 12 hours, aspirin 81 mg daily, Lipitor 40 mg, Pulmicort 0.5 mg inhalation every 12 hours, Coreg 3.125 mg twice a day, digoxin 0.125 mg Saturday, Saturday, and Saturday, Aricept 10 mg daily, Synthroid 100 mcg daily, Megace 40 mg daily, Namenda 10 mg daily, Solu-Medrol 40 mg twice a day, Protonix 40 mg daily, Tramadol 50 mg 3 times a day, spironolactone 25 mg daily, Coumadin 4 Saturday, Saturday, Saturday, Saturday, and Saturday and 2 mg Saturday and . LABORATORY DATA: Reviewed. PT 35, INR 3.27. Sodium 138, potassium 5.7, chloride 108, carbon dioxide 25, anion gap 10, BUN 48, creatinine 1.5, GFR 34, random glucose 108, calcium 9.2, procalcitonin less than 0.05. Free T4 is 1.65, thyroxine 8.9, total T3 is 0.82, and digoxin 2.1. IMPRESSION AND PLAN: Chronic obstructive lung disease, cardiomyopathy, coronary artery disease, history of valve replacement, atrial fibrillation with pacemaker, hypertension, anemia, hypothyroidism, steroid-dependent, history of breast cancer. The patient noted with hyperkalemia today, was given Kayexalate. We will repeat labs in the morning. Pulmonary point of view, continue inhaled bronchodilators. We will decrease Solu-Medrol to 40 mg daily. Head of bed elevated to 45 degrees. Sleep apnea precaution. Careful with sedation. Cardiology followup. Procalcitonin negative. If the patient is discharged, we recommend the patient go on Medrol Dosepak and after completion of Medrol Dosepak, can continue prednisone 5 mg. We will recommend the patient have full pulmonary test as outpatient to evaluate extent of chronic lung disease. Recommend the patient to have sleep study as outpatient to evaluate sleep apnea syndrome. The patient was seen and examined with Dr. Justice. Discussed assessment and plan as described above. The patient was seen and examined by Juan Knutson, nurse practitioner. Discussed assessment and plan as described above. Thank you for this consult. We will follow with you. Zenia Martinez APN Cyril Justice MD
[2019-03-04 16:24] VITALS: RESP 20; O2SAT 99
--- NOTE | 2019-03-05 01:32 | CON ---
DATE OF CONSULTATION: 03/04/2019 REASON FOR CONSULTATION: Hyperkalemia HISTORY OF PRESENTING ILLNESS: A 78-year-old lady was brought into the hospital on 03/01 by family members because of poor p.o. intake, progressive fatigue, anemia. In the emergency room, she reported dizziness while walking. She also complained of some abdominal pain. There was no history of any fever, nausea, vomiting, or diarrhea. In the emergency room, she was found to be alert and oriented. Vital signs were stable. Initial blood work showed WBC of 4.6, hemoglobin of 11.6, BUN 65, creatinine 2.3. The patient was given IV fluids. Her creatinine is nicely coming down, but today her potassium is 5.7. Hence consultation is requested for hyperkalemia. PAST MEDICAL AND SURGICAL HISTORY: CAD, history of stents, permanent pacemaker, history of CABG, mechanical mitral valve, NIDDM, hypertension, hypothyroidism, COPD, GI bleed, anemia, anxiety, depression. FAMILY HISTORY: Noncontributory. SOCIAL HISTORY: No smoking, no alcohol use, no IV drug abuse. ALLERGIES: SULFA. MEDICATIONS AT HOME: Included Coumadin, Aldactone 25 daily, Protonix, Namenda, Synthroid, Aricept, digoxin, Celexa, Coreg, Lipitor, aspirin, Xanax, tramadol, Ambien, Glucophage, Amitiza, Zestril, and furosemide. REVIEW OF SYSTEMS: Currently, the patient denies any shortness of breath, chest pain, fatigue, nausea, vomiting, or diarrhea. She denies any constipation. All other systems are reviewed, and there are unremarkable. PHYSICAL EXAMINATION: GENERAL: Elderly lady, sitting in bed. VITAL SIGNS: Blood pressure 131/64, heart rate 80, respiratory rate 20, temperature 97.4. HEENT: Normocephalic, atraumatic, positive pallor. NECK: Supple, no JVD. LUNGS: Bilateral equal entry, bilateral equal expansion. CARDIAC: S1 and S2, regular rate and rhythm, no murmur, no rub. ABDOMEN: Distended, soft, nontender, bowel sounds present. EXTREMITIES: No lower extremity edema. LABORATORY DATA: WBC 3.8, hemoglobin 10, hematocrit 29.6, platelets 133. Sodium 138, potassium 5.7, chloride 108, CO2 of 25, BUN 48, creatinine 1.5, glucose 108, calcium 9.2. CURRENT MEDICATIONS: Aldactone 25 daily; Aricept; Brovana; Coreg 3.125 b.i.d.; Coumadin; Digoxin 0.125 Saturday, Saturday, Saturday; DuoNeb; Ecotrin; Lipitor; Megace; Namenda; Protonix; Pulmicort; Solu-Medrol; Synthroid; tramadol; Xanax. ASSESSMENT: 1. Hyperkalemia, ?secondary to Aldactone. 2. Coronary artery disease, congestive heart failure. 3. Dementia. 4. Chronic obstructive pulmonary disease, compensated. 5. Acute kidney injury, resolving. 6. Underlying chronic kidney disease stage II/III with a baseline creatinine of 1.1-1.2. PLAN: 1. Hold Aldactone. 2. Avoid Kayexalate. 3. Push p.o. fluids. Litzy Ocasio MD
--- NOTE | 2019-03-05 03:07 | CON ---
DATE OF CONSULTATION: 03/04/2019 ENDOCRINOLOGY CONSULTATION HISTORY OF PRESENT ILLNESS: This is a 78-year-old female with known history of type 2 diabetes and hypertension, significant cardiac vasculopathy, presenting here with generalized body weakness and supervening dizziness and lightheadedness and has been evaluated to have anemia with underlying chronic kidney disease and is now being referred for evaluation of abnormal thyroid function studies. PAST MEDICAL HISTORY: History of longstanding hypothyroidism and has been on levothyroxine at 100 mcg daily, history of hypertension and dyslipidemia, history of coronary artery disease with previous coronary stent placement as noted historically, history of cardiac tachyarrhythmias with a prior pacemaker and defibrillator insertion undertaken, history of coronary artery bypass graft surgery and subsequent mitral valve replacement; history of type 2 diabetes, currently on metformin at 500 mg one daily, history of hypertension and dyslipidemia, history of chronic bronchial asthma and subsequent COPD, and a prior history of GI bleeding and chronic anemia, there is also significant history of generalized anxiety and depression and 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 FAMILY HISTORY: Positive for diabetes and hypertension. SOCIAL HISTORY: The patient has a supportive family. No known substance abuse. REVIEW OF SYSTEMS: As mentioned above, admits to episodic bouts of dizziness and lightheadedness, worse in the last few days prior to admission with concomitant generalized body weakness, easy fatigability and tiredness, and suboptimal energy level. Also admits to occasional bifrontal headache. No recent visual changes noted. No chest pains, but admits to precordial tightness to occasional shortness of breath, especially prominent on exertion. Her oral intake has been variable with nausea and dyspepsia and vague upper abdominal pain. Also admits to habitual constipation. No recent alterations of urinary patterns otherwise. PHYSICAL EXAMINATION: GENERAL: This is an asthenic female, in no apparent distress. VITAL SIGNS: Blood pressure of 140/80, pulse of 100 beats per minute, regular, temperature 98, respirations 20, height 5 feet 2 inches, weight is 110 pounds. HEENT: Head is normocephalic. Eyes anicteric with pink conjunctivae. Funduscopy not possible at this time. Ears, nose, and throat otherwise normal. NECK: Supple. Thyroid gland is normal. No carotid bruits or any cervical adenopathy. CARDIOPULMONARY: Some adynamic precordium. S1, S2 are rapid and regular. LUNGS: Clear to auscultation. ABDOMEN: Flat and soft with positive bowel sounds. EXTREMITIES: No peripheral edema. Pluses are +2 bilaterally. LABORATORY DATA: Chemistries, BUN of 48, sodium 138, potassium 3.7, chloride 108, CO2 of 25, glucose 108, and creatinine 1.5, the initial BUN and creatinine were actually 65 and 2.3 as known. Her thyroid studies showed a T4 of 8.9 with a free T4 of 1.65 and a TSH of 0.09 and a total T3 of 0.82. ASSESSMENT: This is a 78-year-old female with known history of type 2 diabetes and hypertension with underlying chronic kidney disease, presenting here with constitutional symptoms and progressive bouts of dizziness and lightheadedness and is now being referred for endocrine evaluation and management. She remains clinically euthyroid and biochemically has normal thyroxine and free T4 levels with a suppressed TSH, which could be most likely indicative of over replacement of her levothyroxine, especially with recent weight loss and failure to thrive with subsequent lesser levothyroxine requirements thereof, especially with a very low body mass index. However, with the intercurrent IV steroid therapies given, this can also cause a transient TSH suppression with interference of the uptake and release of thyroxine in general causing a transient TSH suppression with superimposed acute sick euthyroid syndrome. PLAN OF MANAGEMENT: Because of the underlying cardiac arrhythmias even with the pacemaker and defibrillator in place, would prudently lower her levothyroxine replacement therapy to 50 mcg once daily in the morning to start in 3 days or so. Would discontinue her medications for now to allow a full therapeutic washout at this time. With her low body mass index, the patient would really just require levothyroxine at 50 mcg once daily as ordered for Saturday. We will obtain serial thyroid studies and also obtain thyroid antibodies to confirm and/or indicate the presence of underlying thyroid autoimmunity. We will follow this. We will also observe her glycemic fluctuations and determine the need to add oral hypoglycemic therapy as indicated. Her hemoglobin A1c has been reported as 5.2 percent, and again, with the presence of anemia, this may not be fully accurate at this time. Emelia Tracey MD
--- NOTE | 2019-03-05 06:52 | CP.PCM.PN ---
Subjective - Date & Time of Evaluation Date of Evaluation: 03/05/19 Time of Evaluation: 06:50 - Subjective Subjective: Awake, alert, no distress, feels okay Reason for consultation and follow up: Cardiac follow up of coronary artery disease, post CABG, post stents, admitted for generalized weakness, history of hypertension, hypothyroidism,, COPD, GI bleed, anemia, and anxiety/depression, Seen and examined by me and Dr. Naranjo Objective - Vital Signs/Intake and Output Vital Signs (last 24 hours): Temp Pulse Resp BP Pulse Ox 97.4 F L 80 20 144/75 99 03/04/19 16:23 03/04/19 18:14 03/04/19 16:23 03/04/19 18:14 03/04/19 16:23 Intake and Output: 03/04/19 03/05/19 18:59 06:59 Intake Total 360 Balance 360 - Medications Medications: Current Medications Albuterol/Ipratropium (Duoneb 3 Mg/0.5 Mg (3 Ml) Ud) 3 ml IH Q2H PRN PRN Reason: Shortness of Breath Last Admin: 03/03/19 11:42 Dose: 3 ml Alprazolam (Xanax) 0.25 mg PO HS PRN; Protocol PRN Reason: Anxiety Stop: 03/08/19 12:38 Arformoterol Tartrate (Brovana) 15 mcg IH [id number] [facility] Last Admin: 03/04/19 07:28 Dose: Not Given Aspirin (Ecotrin) 81 mg PO DAILY [facility] Last Admin: 03/04/19 10:38 Dose: 81 mg Atorvastatin Calcium (Lipitor) 40 mg PO DIN [facility] Last Admin: 03/04/19 18:14 Dose: 40 mg Budesonide (Pulmicort Respules) 0.5 mg IH [id number] [facility] Last Admin: 03/04/19 07:28 Dose: Not Given Carvedilol (Coreg) 3.125 mg PO BID [facility] Last Admin: 03/04/19 18:14 Dose: 3.125 mg Digoxin (Digoxin) 0.125 mg PO MWF@1400 [facility] Last Admin: 03/04/19 14:23 Dose: 0.125 mg Donepezil HCl (Aricept) 10 mg PO DAILY [facility] Last Admin: 03/04/19 10:36 Dose: 10 mg Levothyroxine Sodium (Synthroid) 50 mcg PO ACB [facility] Megestrol Acetate (Megace) 40 mg PO DAILY [facility] Last Admin: 03/04/19 10:38 Dose: 40 mg Memantine (Namenda) 10 mg PO DAILY [facility] Last Admin: 03/04/19 10:38 Dose: 10 mg Methylprednisolone (Solu-Medrol) 40 mg IVP DAILY [facility] Pantoprazole Sodium (Protonix Ec Tab) 40 mg PO DAILY [facility] Last Admin: 03/04/19 10:40 Dose: 40 mg Spironolactone (Aldactone) 25 mg PO DAILY [facility] Last Admin: 03/04/19 10:36 Dose: 25 mg Tramadol HCl (Ultram) 50 mg PO TID [facility] Last Admin: 03/04/19 18:15 Dose: Not Given Warfarin Sodium (Coumadin) 4 mg PO SuMoWeFrSa@1800 [facility]; Protocol Warfarin Sodium (Coumadin) 2 mg PO TuTh@1800 [facility]; Protocol Last Admin: 03/03/19 17:40 Dose: 2 mg - Labs Labs: 03/03/19 07:50 03/04/19 11:20 PT 37.0 SECONDS (9.4-12.5) H 03/04/19 06:30 INR 3.27 03/04/19 06:30 APTT 43.5 Seconds (26.9-38.3) H 02/28/19 11:10 - Constitutional Appears: Non-toxic, No Acute Distress - Head Exam Head Exam: NORMAL INSPECTION, NORMOCEPHALIC - Eye Exam Eye Exam: Normal appearance Pupil Exam: NORMAL ACCOMODATION - ENT Exam ENT Exam: Mucous Membranes Moist, Normal Exam - Respiratory Exam Respiratory Exam: Decreased Breath Sounds, Clear to Ausculation Bilateral, NORMAL BREATHING PATTERN - Cardiovascular Exam Cardiovascular Exam: +S1, +S2 Additional comments: AICD/PPM - GI/Abdominal Exam GI & Abdominal Exam: Soft, Normal Bowel Sounds - Extremities Exam Extremities Exam: Full ROM, Normal Capillary Refill - Neurological Exam Neurological Exam: Alert, Awake, Oriented x3 - Psychiatric Exam Psychiatric exam: Normal Affect, Normal Mood - Skin Skin Exam: Dry, Normal Color, Warm Assessment and Plan - Assessment and Plan (Free Text) Assessment: A 78 year old female who came in to the ER due to generalized weakness. History of [place], CHF, TIA/ CVA, coronary artery disease, post CABG and mitral valve replacement 20 years ago, atrial fibrillation, on Coumadin , post stents, hypertension, hypothyroidism,breast cancer, COPD, GI bleed, anemia, and anxiety/depression,AICD/PPM, diabetes, renal insufficiency. Troponin normal. E cho done on 01/31/18 showed LVEF 40-45%, mild aortic regurgitation,moderate valvular aortic stenosis, mechanical mitral valve, normal functioning, trace MR, mild to moderate tricuspid regurgitation RVSP 42 mmHg, mild pulmonary hypertension, no vegetation. Cardiac cath done on 09/09/18 showed [place] triple vessel disease, LVEF 25%, successful PTCA of totally occluded RCA, proximal and distal, and POBA of mid RCA. Recently she had PPM change. Admitted for generalized weakness,poor oral intake. No follow up with Dr. Garrido regarding PPM/AICD ([place]). PPM/AICD and atrial fibrillation baseline heart rhythm, No evidence of Ventricular tachycardia. 5-9 years of battery life. Pulmonary on c onsult. Cardiac status stable. Clinically improved. Evaluated by Psychiatry.Discharge planning.No further cardiac work up at this time. Seen by endocrine. Adjusted dose of Synthroid. Seen by renal for hyperkalemia, Aldactone discontinued/held. Awaiting transfer to TCU. Plan: Awaiting transfer to TCU Clinically improved Denies chest pain Heart rate stable Blood pressure stable Cardiac status stable On ASA 81 mg daily,Lipitor 40 mg daily, Coreg 3.125 mg BID, Digoxin 0.125 mg daily, Synthroid 50 mcg daily Warfarin 4 mg daily except Saturday and 2 mg daily. Continue current treatment Continue current medications Nutritional support, claimed to be eating okay Discharge planning Evaluated by Renal and Endocrine Will follow up Plan and treatment discussed with Dr. Naranjo
[2019-03-05 08:20] LABS: INR 2.73; PROTHROMBIN TIME 30.8 SECONDS (9.4-12.5)
[2019-03-05 08:22] LABS: CALCIUM 8.2 mg/dL (8.4-10.5)
[2019-03-05] MEDS: Arformoterol 15 mcg/2 ml Inh Sol IH SCH (08:22)
[2019-03-05] MEDS: Budesonide 0.5 mg/2 ml Inhal Susp UD IH SCH (08:23)
--- NOTE | 2019-03-05 08:29 | CP.PCM.PN ---
<RaheemAnderson Cleveland - Last Filed: 03/05/19 08:24> Subjective - Date & Time of Evaluation Date of Evaluation: 03/04/19 Time of Evaluation: 08:24 - Subjective Subjective: Heme/onc progress - Raheem PGY - 2 Patient seen and examined at bedside with no acute overnight events. Patient states she is still fatigued but is feeling better. No new complaints including chest pain, n/v/d. SOB improved Objective - Vital Signs/Intake and Output Vital Signs (last 24 hours): Temp Pulse Resp BP Pulse Ox 97.4 F L 80 20 144/75 99 03/04/19 16:23 03/04/19 18:14 03/04/19 16:23 03/04/19 18:14 03/04/19 16:23 Intake and Output: 03/05/19 03/05/19 06:59 18:59 Intake Total 360 Balance 360 - Medications Medications: Current Medications Albuterol/Ipratropium (Duoneb 3 Mg/0.5 Mg (3 Ml) Ud) 3 ml IH Q2H PRN PRN Reason: Shortness of Breath Last Admin: 03/03/19 11:42 Dose: 3 ml Alprazolam (Xanax) 0.25 mg PO HS PRN; Protocol PRN Reason: Anxiety Stop: 03/08/19 12:38 Arformoterol Tartrate (Brovana) 15 mcg IH [id number] [facility] Last Admin: 03/05/19 08:22 Dose: 15 mcg Aspirin (Ecotrin) 81 mg PO DAILY [facility] Last Admin: 03/04/19 10:38 Dose: 81 mg Atorvastatin Calcium (Lipitor) 40 mg PO DIN [facility] Last Admin: 03/04/19 18:14 Dose: 40 mg Budesonide (Pulmicort Respules) 0.5 mg IH [id number] [facility] Last Admin: 03/05/19 08:23 Dose: 0.5 mg Carvedilol (Coreg) 3.125 mg PO BID [facility] Last Admin: 03/04/19 18:14 Dose: 3.125 mg Digoxin (Digoxin) 0.125 mg PO MWF@1400 [facility] Last Admin: 03/04/19 14:23 Dose: 0.125 mg Donepezil HCl (Aricept) 10 mg PO DAILY [facility] Last Admin: 03/04/19 10:36 Dose: 10 mg Levothyroxine Sodium (Synthroid) 50 mcg PO ACB [facility] Megestrol Acetate (Megace) 40 mg PO DAILY [facility] Last Admin: 03/04/19 10:38 Dose: 40 mg Memantine (Namenda) 10 mg PO DAILY [facility] Last Admin: 03/04/19 10:38 Dose: 10 mg Methylprednisolone (Solu-Medrol) 40 mg IVP DAILY [facility] Pantoprazole Sodium (Protonix Ec Tab) 40 mg PO DAILY [facility] Last Admin: 03/04/19 10:40 Dose: 40 mg Spironolactone (Aldactone) 25 mg PO DAILY [facility] Last Admin: 03/04/19 10:36 Dose: 25 mg Tramadol HCl (Ultram) 50 mg PO TID [facility] Last Admin: 03/04/19 18:15 Dose: Not Given Warfarin Sodium (Coumadin) 4 mg PO SuMoWeFrSa@1800 [facility]; Protocol Warfarin Sodium (Coumadin) 2 mg PO TuTh@1800 [facility]; Protocol Last Admin: 03/03/19 17:40 Dose: 2 mg - Labs Labs: 03/03/19 07:50 03/05/19 08:00 PT 30.8 SECONDS (9.4-12.5) H 03/05/19 08:00 INR 2.73 03/05/19 08:00 APTT 43.5 Seconds (26.9-38.3) H 02/28/19 11:10 - Constitutional Appears: Well - Head Exam Head Exam: ATRAUMATIC, NORMAL INSPECTION, NORMOCEPHALIC - Eye Exam Eye Exam: EOMI, Normal appearance, PERRL Pupil Exam: NORMAL ACCOMODATION, PERRL - ENT Exam ENT Exam: Mucous Membranes Moist, Normal Exam - Neck Exam Neck Exam: Full ROM, Normal Inspection. absent: Lymphadenopathy - Respiratory Exam Respiratory Exam: Clear to Ausculation Bilateral, NORMAL BREATHING PATTERN - Cardiovascular Exam Cardiovascular Exam: REGULAR RHYTHM, +S1, +S2. absent: Murmur - GI/Abdominal Exam GI & Abdominal Exam: Soft, Normal Bowel Sounds. absent: Tenderness - Extremities Exam Extremities Exam: Full ROM, Normal Capillary Refill, Normal Inspection. absent: Joint Swelling, Pedal Edema - Back Exam Back Exam: NORMAL INSPECTION - Neurological Exam Neurological Exam: Alert, Awake, CN II-XII Intact, Normal Gait, Oriented x3 - Psychiatric Exam Psychiatric exam: Normal Affect, Normal Mood - Skin Skin Exam: Dry, Intact, Normal Color, Warm Assessment and Plan - Assessment and Plan (Free Text) Assessment: 78-year-old female with a pertinent history of breast CA s/p right breast mastectomy with compression fractures, anemia, and A. fib and with a mechanical mitral valve (on Coumadin), presented to the ED for shortness of breath, productive cough and weakness. Oncology service consulted for history of breast CA. Given her Afib and mechanical valve, the patient 's goal INR is 2.5- 3.5; she was subtherapeutic on admission but is at 2.65 today. Of note, patient had low B12 on last admission Plan - Stop Vit B12 (new levels were normal) - INR was 3.27 today - hold Coumadin for today - Duonebs, solumederol as per orders <Alexandra Newman P - Last Filed: 03/05/19 21:17> Objective - Vital Signs/Intake and Output Vital Signs (last 24 hours): Temp Pulse Resp BP Pulse Ox 98.5 F 81 20 129/62 99 03/05/19 08:56 03/05/19 09:42 03/05/19 08:56 03/05/19 09:42 03/05/19 08:56 - Labs Labs: 03/03/19 07:50 03/05/19 08:00 PT 30.8 SECONDS (9.4-12.5) H 03/05/19 08:00 INR 2.73 03/05/19 08:00 APTT 43.5 Seconds (26.9-38.3) H 02/28/19 11:10 Attending/Attestation - Attestation I have personally seen and examined this patient.: Yes I have fully participated in the care of the patient.: Yes I have reviewed all pertinent clinical information, including history, physical exam and plan: Yes
--- NOTE | 2019-03-05 08:31 | CP.PCM.PN ---
<RaheemAnderson - Last Filed: 03/05/19 08:29> Subjective - Date & Time of Evaluation Date of Evaluation: 03/04/19 Time of Evaluation: 08:29 - Subjective Subjective: Heme/onc progress note - Raheem PGY - 2 Patient seen and examined at bedside with no new acute overnight events; patient is doing better but is still mildly fatigued. Denies any new complaints including chest pain or n/v/d; SOB improved Objective - Vital Signs/Intake and Output Vital Signs (last 24 hours): Temp Pulse Resp BP Pulse Ox 97.4 F L 80 20 144/75 99 03/04/19 16:23 03/04/19 18:14 03/04/19 16:23 03/04/19 18:14 03/04/19 16:23 Intake and Output: 03/05/19 03/05/19 06:59 18:59 Intake Total 360 Balance 360 - Medications Medications: Current Medications Albuterol/Ipratropium (Duoneb 3 Mg/0.5 Mg (3 Ml) Ud) 3 ml IH Q2H PRN PRN Reason: Shortness of Breath Last Admin: 03/03/19 11:42 Dose: 3 ml Alprazolam (Xanax) 0.25 mg PO HS PRN; Protocol PRN Reason: Anxiety Stop: 03/08/19 12:38 Arformoterol Tartrate (Brovana) 15 mcg IH [id number] [facility] Last Admin: 03/05/19 08:22 Dose: 15 mcg Aspirin (Ecotrin) 81 mg PO DAILY [facility] Last Admin: 03/04/19 10:38 Dose: 81 mg Atorvastatin Calcium (Lipitor) 40 mg PO DIN [facility] Last Admin: 03/04/19 18:14 Dose: 40 mg Budesonide (Pulmicort Respules) 0.5 mg IH [id number] [facility] Last Admin: 03/05/19 08:23 Dose: 0.5 mg Carvedilol (Coreg) 3.125 mg PO BID [facility] Last Admin: 03/04/19 18:14 Dose: 3.125 mg Digoxin (Digoxin) 0.125 mg PO MWF@1400 [facility] Last Admin: 03/04/19 14:23 Dose: 0.125 mg Donepezil HCl (Aricept) 10 mg PO DAILY [facility] Last Admin: 03/04/19 10:36 Dose: 10 mg Levothyroxine Sodium (Synthroid) 50 mcg PO ACB [facility] Megestrol Acetate (Megace) 40 mg PO DAILY [facility] Last Admin: 03/04/19 10:38 Dose: 40 mg Memantine (Namenda) 10 mg PO DAILY [facility] Last Admin: 03/04/19 10:38 Dose: 10 mg Methylprednisolone (Solu-Medrol) 40 mg IVP DAILY [facility] Pantoprazole Sodium (Protonix Ec Tab) 40 mg PO DAILY [facility] Last Admin: 03/04/19 10:40 Dose: 40 mg Spironolactone (Aldactone) 25 mg PO DAILY [facility] Last Admin: 03/04/19 10:36 Dose: 25 mg Tramadol HCl (Ultram) 50 mg PO TID [facility] Last Admin: 03/04/19 18:15 Dose: Not Given Warfarin Sodium (Coumadin) 4 mg PO SuMoWeFrSa@1800 [facility]; Protocol Warfarin Sodium (Coumadin) 2 mg PO TuTh@1800 [facility]; Protocol Last Admin: 03/03/19 17:40 Dose: 2 mg - Labs Labs: 03/03/19 07:50 03/05/19 08:00 PT 30.8 SECONDS (9.4-12.5) H 03/05/19 08:00 INR 2.73 03/05/19 08:00 APTT 43.5 Seconds (26.9-38.3) H 02/28/19 11:10 - Constitutional Appears: Well - Head Exam Head Exam: ATRAUMATIC, NORMAL INSPECTION, NORMOCEPHALIC - Eye Exam Eye Exam: EOMI, Normal appearance, PERRL Pupil Exam: NORMAL ACCOMODATION, PERRL - ENT Exam ENT Exam: Mucous Membranes Moist, Normal Exam - Neck Exam Neck Exam: Full ROM, Normal Inspection. absent: Lymphadenopathy - Respiratory Exam Respiratory Exam: Clear to Ausculation Bilateral, NORMAL BREATHING PATTERN - Cardiovascular Exam Cardiovascular Exam: REGULAR RHYTHM, +S1, +S2. absent: Murmur - GI/Abdominal Exam GI & Abdominal Exam: Soft, Normal Bowel Sounds. absent: Tenderness - Extremities Exam Extremities Exam: Full ROM, Normal Capillary Refill, Normal Inspection. absent: Joint Swelling, Pedal Edema - Back Exam Back Exam: NORMAL INSPECTION - Neurological Exam Neurological Exam: Alert, Awake, CN II-XII Intact, Normal Gait, Oriented x3 - Psychiatric Exam Psychiatric exam: Normal Affect, Normal Mood - Skin Skin Exam: Dry, Intact, Normal Color, Warm Assessment and Plan - Assessment and Plan (Free Text) Assessment: 78-year-old female with a pertinent history of breast CA s/p right breast mastectomy with compression fractures, anemia, and A. fib and with a mechanical mitral valve (on Coumadin), presented to the ED for shortness of breath, productive cough and weakness. Oncology service consulted for history of breast CA. Given her Afib and mechanical valve, the patient 's goal INR is 2.5- 3.5; she was subtherapeutic on admission but is at 2.65 today. Of note, patient had low B12 on last admission Plan - Stop Vit B12 (new levels were normal) - INR was 3.27 today - hold Coumadin for today - Duonebs, solumederol as per orders <Alexandra Newman P - Last Filed: 03/05/19 21:17> Objective - Vital Signs/Intake and Output Vital Signs (last 24 hours): Temp Pulse Resp BP Pulse Ox 98.5 F 81 20 129/62 99 03/05/19 08:56 03/05/19 09:42 03/05/19 08:56 03/05/19 09:42 03/05/19 08:56 - Labs Labs: 03/03/19 07:50 03/05/19 08:00 PT 30.8 SECONDS (9.4-12.5) H 03/05/19 08:00 INR 2.73 03/05/19 08:00 APTT 43.5 Seconds (26.9-38.3) H 02/28/19 11:10 Attending/Attestation - Attestation I have personally seen and examined this patient.: Yes I have fully participated in the care of the patient.: Yes I have reviewed all pertinent clinical information, including history, physical exam and plan: Yes
[2019-03-05 08:57] VITALS: BP 129/62; PULSE 81; TEMP 98.5
[2019-03-05] MEDS: Pantoprazole 40 mg EC Tab PO SCH (09:43)
[2019-03-05] MEDS ORDERED: MethylPREDNISolone 40 mg Vial IVP SCH (10:00)
--- NOTE | 2019-03-05 11:27 | CP.PCM.PN ---
<Romel Loredo - Last Filed: 03/05/19 11:17> Subjective - Date & Time of Evaluation Date of Evaluation: 03/05/19 Time of Evaluation: 07:30 - Subjective Subjective: Romel Loredo D.O. PGY-3, Internal Medicine Resident, Dr. Lincoln's Service, Progress Note 78 year old female with a PMH of CAD s/p CABG and MV replacement, HFrEF @47%, previous CVA, atrial fibrillation on Coumadin, hypertension, hypothyroidism, breast cancer, achondroplasia, COPD, previous GI bleed, chronic anemia, diabetes, and anxiety/depression who presented for weakness after being evaluated by her PMD. Patient was seen and examined at bedside. Eager to go home. States no issues overnight. Objective - Vital Signs/Intake and Output Vital Signs (last 24 hours): Temp Pulse Resp BP Pulse Ox 98.5 F 81 20 129/62 99 03/05/19 08:56 03/05/19 09:42 03/05/19 08:56 03/05/19 09:42 03/05/19 08:56 Intake and Output: 03/05/19 03/05/19 06:59 18:59 Intake Total 360 Balance 360 - Medications Medications: Current Medications Albuterol/Ipratropium (Duoneb 3 Mg/0.5 Mg (3 Ml) Ud) 3 ml IH Q2H PRN PRN Reason: Shortness of Breath Last Admin: 03/03/19 11:42 Dose: 3 ml Alprazolam (Xanax) 0.25 mg PO HS PRN; Protocol PRN Reason: Anxiety Stop: 03/08/19 12:38 Arformoterol Tartrate (Brovana) 15 mcg IH [id number] [facility] Last Admin: 03/05/19 08:22 Dose: 15 mcg Aspirin (Ecotrin) 81 mg PO DAILY [facility] Last Admin: 03/05/19 09:43 Dose: 81 mg Atorvastatin Calcium (Lipitor) 40 mg PO DIN [facility] Last Admin: 03/04/19 18:14 Dose: 40 mg Budesonide (Pulmicort Respules) 0.5 mg IH [id number] [facility] Last Admin: 03/05/19 08:23 Dose: 0.5 mg Carvedilol (Coreg) 3.125 mg PO BID [facility] Last Admin: 03/05/19 09:42 Dose: 3.125 mg Digoxin (Digoxin) 0.125 mg PO MWF@1400 [facility] Last Admin: 03/04/19 14:23 Dose: 0.125 mg Donepezil HCl (Aricept) 10 mg PO DAILY [facility] Last Admin: 03/05/19 09:41 Dose: 10 mg Levothyroxine Sodium (Synthroid) 50 mcg PO ACB [facility] Memantine (Namenda) 10 mg PO DAILY [facility] Last Admin: 03/05/19 09:43 Dose: 10 mg Methylprednisolone (Solu-Medrol) 40 mg IVP DAILY [facility] Last Admin: 03/05/19 09:43 Dose: 40 mg Pantoprazole Sodium (Protonix Ec Tab) 40 mg PO DAILY [facility] Last Admin: 03/05/19 09:43 Dose: 40 mg Spironolactone (Aldactone) 25 mg PO DAILY [facility] Last Admin: 03/04/19 10:36 Dose: 25 mg Tramadol HCl (Ultram) 50 mg PO TID [facility] Last Admin: 03/05/19 09:43 Dose: 50 mg Warfarin Sodium (Coumadin) 2 mg PO 1800 [facility]; Protocol - Labs Labs: 03/03/19 07:50 03/05/19 08:00 PT 30.8 SECONDS (9.4-12.5) H 03/05/19 08:00 INR 2.73 03/05/19 08:00 APTT 43.5 Seconds (26.9-38.3) H 02/28/19 11:10 - Constitutional Appears: Elderly female, Non-toxic, No Acute Distress - Head Exam Head Exam: NORMAL INSPECTION, NORMOCEPHALIC - Eye Exam Eye Exam: Normal appearance, EOMI - ENT Exam ENT Exam: Mucous Membranes Moist, Normal Oropharynx - Respiratory Exam Respiratory Exam: CTAB, no W/R/R - Cardiovascular Exam Cardiovascular Exam: +S1, +S2, AICD on left chest wall - GI/Abdominal Exam GI & Abdominal Exam: Soft, Normal Bowel Sounds - Extremities Exam Extremities Exam: nontender - Neurological Exam Neurological Exam: Alert, Awake - Skin Skin Exam: Dry, Normal Color, Warm Assessment and Plan - Assessment and Plan (Free Text) Assessment: 78 year old female with a PMH of CAD s/p CABG and MV replacement, HFrEF @47%, previous CVA, atrial fibrillation on Coumadin, hypertension, hypothyroidism, breast cancer, achondroplasia, COPD, previous GI bleed, chronic anemia, diabetes, and anxiety/depression who presented for weakness after being evaluated by her PMD. Plan: 1. Weakness/failure to thrive 2. GEORGE 3. CAD s/p CABG and MV replacement 4. Afib 5. HFrEF 6. HTN 7. COPD 8. Chronic anemia 9. Anxiety and depression 10. Hypothyroidism 11. Hyperkalemia - resolved Pending transfer to the transitional care unit. For discharge information please review discharge summary from yesterday. We will continue the patient on nebulizers for COPD as well as after matter and budesonide and Solu-Medrol 40 daily. We will continue as needed Xanax for her anxiety. For her CAD status post CABG continue with aspirin and Lipitor. For her dementia we will continue on donepezil and memantine. For history of heart failure spironolactone is currently on hold but we will continue her carvedilol. For hypothyroidism she has been evaluated by endocrinology who has decreased her dose and is currently holding levothyroxine for a few days and digoxin which is also being used for her atrial fibrillation. Continue warfarin, repeat PT and PTT tomorrow morning. For her acute kidney injury with likely underlying chronic kidney disease as well as hyperkalemia she was seen and evaluated by nephrology. Their recommendations are appreciated. Creatinine has returned to baseline and hyperkalemia has now resolved. Pain is controlled on tramadol. Psychiatry evaluation reviewed and appreciated. Will discontinue megace. We will follow o nce patient transferred physically to TCU. Patient was seen and examined and case was discussed at length with attending physician. <Joaquín Lincoln S - Last Filed: 03/05/19 16:03> Objective - Vital Signs/Intake and Output Vital Signs (last 24 hours): Temp Pulse Resp BP Pulse Ox 98.5 F 81 20 129/62 99 03/05/19 08:56 03/05/19 09:42 03/05/19 08:56 03/05/19 09:42 03/05/19 08:56 Intake and Output: 03/05/19 03/05/19 06:59 18:59 Intake Total 360 Balance 360 - Labs Labs: 03/03/19 07:50 03/05/19 08:00 PT 30.8 SECONDS (9.4-12.5) H 03/05/19 08:00 INR 2.73 03/05/19 08:00 APTT 43.5 Seconds (26.9-38.3) H 02/28/19 11:10 Assessment and Plan - Assessment and Plan (Free Text) Plan: Patient was seen and examined by me. I have reviewed the note of the ophthalmic medical assistant and have gone over the plan of care. I agree with the note. I have r eviewed the medications and the last labs.
--- NOTE | 2019-03-05 15:21 | PN ---
DATE: 03/05/2019 PULMONARY PROGRESS NOTE REFERRING DOCTOR: Dr. Lincoln. SUBJECTIVE: The patient is seen lying in bed. No acute distress. No overnight events reported. Reports feeling well. No headaches, rhinitis, cough, shortness of breath, chest pain, abdominal pain, nausea, vomiting, diarrhea, leg pain or leg swelling reported. PHYSICAL EXAMINATION: VITAL SIGNS: Blood pressure 129/62, pulse 81, temperature 98.5, oxygen saturation 99% on room air. GENERAL: No acute distress HEENT: Moist mucous membranes. Crowded airways. NECK: Supple. No JVD. LUNGS: Fair airflow bilaterally CARDIOVASCULAR: S1 and S2. ABDOMEN: Soft, nontender. No distention. No organomegaly. EXTREMITIES: No bilateral lower extremity edema. NEUROLOGIC: Awake, alert and verbal. Following commands. MEDICATIONS: Reviewed. DuoNeb 3 mL inhalation every 2 hours p.r.n., Xanax 0.25 mg at bedtime p.r.n., Brovana 15 mcg inhalation every 12 hours, aspirin 81 mg daily, Lipitor 40 mg, Pulmicort 0.5 mg inhalation every 12 hours, Coreg 3.125 mg twice a day, digoxin 0.125 mg p.o. Saturday, Saturday, and Saturday, Aricept 10 mg daily, Synthroid 50 mcg in the morning, Namenda 10 mg daily, Solu-Medrol 40 mg IV push daily, Protonix 40 mg daily, spironolactone 25 mg daily, Tramadol 50 mg 3 times a day, Coumadin 2 mg daily. LABORATORY DATA: Reviewed. PT 30.8, INR 2.73. Sodium 139, potassium 4.7, chloride 109, carbon dioxide 23, anion gap 12, BUN 48, creatinine 1.2, GFR 44, random glucose 100, calcium 8.2, total creatinine clearance 25. IMPRESSION AND PLAN: Chronic obstructive lung disease, cardiomyopathy, coronary artery disease, history of valve replacement, atrial fibrillation, pacemaker, hypertension, anemia, hypothyroidism, steroid-dependent, history of breast cancer. Pulmonary point of view, continue inhaled bronchodilators, continue current Solu-Medrol dosing. Head of bed elevated 45 degrees. Sleep apnea precaution. Careful with sedation. We will place the patient on Zithromax 500 mg daily for chronic obstructive lung disease. Recommend the patient to have full pulmonary test as outpatient to evaluate extent of chronic lung disease. Recommend the patient to have sleep study as outpatient to evaluate sleep apnea syndrome. The patient pending TRCU placement. Fall precautions. The patient was seen and examined with Dr. Justice. Discussed assessment and plan as described above. The patient was seen and examined by Juan Knutson, nurse practitioner. Discussed assessment and plan as described above. Thank you for this consult. We will follow with you. Zenia Martinez APN Cyril Justice MD [facility]
--- NOTE | 2019-03-05 19:35 | PN ---
DATE: 03/05/2019 SUBJECTIVE: The patient was admitted to the hospital because of failure to thrive. She is feeling better. The patient has acute kidney injury that has improved. She has coronary artery disease and is status post CABG. She has been on aspirin. She is on Lipitor for dyslipidemia. The patient is going to continue carvedilol for coronary artery disease. She is on medication for her hypothyroidism with levothyroxine. She is also on digoxin for atrial fibrillation. The patient has hyperkalemia that will be followed. The patient was seen by Psychiatry. I did speak to Dr. Mosquera regarding the case. The patient is going to eventually go home, but will have more assistance and does have family involvement. The patient was on Megace. I will discontinue the Megace. The patient has chronic anemia. We will continue to follow her hemoglobin. She has COPD and gets nebulizer as needed. She is going to be discharged to Transitional Care Unit. CONDITION: Stable. ACTIVITY: Increased as tolerated. Joaquín Lincoln MD
--- NOTE | 2019-03-05 22:38 | PN ---
DATE: 03/05/2019 SUBJECTIVE: The patient is seen sitting in bed. She is awake. She is alert. She is comfortable. She denies any pain. She denies any shortness of breath. PHYSICAL EXAMINATION: GENERAL: Elderly lady in bed. VITAL SIGNS: Blood pressure 129/62, heart rate 81, respiratory rate 20, and temperature 98.5. HEENT: Normocephalic and atraumatic. Positive pallor. NECK: Supple. No JVD. LUNGS: Bilateral equal air entry, bilateral equal expansion. CARDIAC: S1 and S2. Regular rate and rhythm. No murmur. No rub. ABDOMEN: Soft, nondistended, and nontender. Bowel sounds present. EXTREMITIES: No lower extremity edema. LABORATORY DATA: WBC 3.8, hemoglobin 10, hematocrit 29.6, and platelets 133. Sodium 139, potassium 4.7, chloride 109, CO2 of 23, BUN 48, creatinine 1.2, glucose 100, and calcium 8.2. MEDICATIONS: Aldactone 25 daily which was discontinued, Aricept 10, Brovana, Coreg 3.125 b.i.d., Coumadin, digoxin 0.125 Saturday, Saturday, and Saturday, Ecotrin, Lipitor, Megace, Namenda, Protonix, Solu-Medrol 40 IV daily, Synthroid, tramadol, Xanax, and Zithromax. ASSESSMENT: 1. Hyperkalemia, likely secondary to Aldactone, now resolved. 2. Cachexia. 3. Congestive heart failure, currently compensated. 4. Chronic obstructive pulmonary disease. 5. Anemia of chronic disease. PLAN: 1. Continue to hold Aldactone. 2. Avoid use of Kayexalate. 3. Push p.o. fluids. 4. Monitor electrolytes. Litzy Ocasio MD
[2019-03-07] MEDS ORDERED: Levothyroxine 50 MCG TAB PO SCH (07:30)
== END 2019-03-05 13:15 | DRG 57 ==
LOC: ED 10:06 → ERH 13:32 → 3RSO 16:28
PROVIDERS: ADMIT Internal Medicine Nephrology; ATTEND Internal Medicine Nephrology
DX: G30.9 Alzheimer's disease, unspecified (principal); N17.9 Acute kidney failure, unspecified; I13.0 Hypertensive heart and chronic kidney disease with heart failure and stage 1 through stage 4 chronic kidney disease, or unspecified chronic kidney disease; I50.20 Unspecified systolic (congestive) heart failure; I42.0 Dilated cardiomyopathy; K50.911 Crohn's disease, unspecified, with rectal bleeding; R64 Cachexia; F02.80 Dementia in other diseases classified elsewhere, unspecified severity, without behavioral disturbance, psychotic disturbance, mood disturbance, and anxiety; E86.0 Dehydration; R62.7 Adult failure to thrive; E11.22 Type 2 diabetes mellitus with diabetic chronic kidney disease; Z79.899 Other long term (current) drug therapy; Z79.890 Hormone replacement therapy; Z79.01 Long term (current) use of anticoagulants; R53.1 Weakness; Z87.891 Personal history of nicotine dependence; R42 Dizziness and giddiness; I25.10 Atherosclerotic heart disease of native coronary artery without angina pectoris; Z95.5 Presence of coronary angioplasty implant and graft; Z86.73 Personal history of transient ischemic attack (TIA), and cerebral infarction without residual deficits; Z85.3 Personal history of malignant neoplasm of breast; D50.0 Iron deficiency anemia secondary to blood loss (chronic); I35.9 Nonrheumatic aortic valve disorder, unspecified; I25.5 Ischemic cardiomyopathy; D64.9 Anemia, unspecified; Z95.1 Presence of aortocoronary bypass graft; I48.91 Unspecified atrial fibrillation; J44.9 Chronic obstructive pulmonary disease, unspecified; Z95.2 Presence of prosthetic heart valve; F41.9 Anxiety disorder, unspecified; K74.60 Unspecified cirrhosis of liver; D63.8 Anemia in other chronic diseases classified elsewhere; E03.9 Hypothyroidism, unspecified; E78.5 Hyperlipidemia, unspecified; E87.5 Hyperkalemia; F32.89 Other specified depressive episodes; F41.1 Generalized anxiety disorder; G47.30 Sleep apnea, unspecified; I25.2 Old myocardial infarction; I25.82 Chronic total occlusion of coronary artery; N18.3 Chronic kidney disease, stage 3 (moderate); N26.1 Atrophy of kidney (terminal); Z79.52 Long term (current) use of systemic steroids; Z79.82 Long term (current) use of aspirin; Z90.11 Acquired absence of right breast and nipple; Z95.0 Presence of cardiac pacemaker

== ENCOUNTER 2019-03-05 13:20 | Inpatient (IN) | payer MEDICARE, MEDICAID ==
--- NOTE | 2019-03-05 15:16 | CP.PCM.PCO ---
Physician Communication Note - Physician Communication Note Physician Communication Note: pt was seen 03/04/19, signed off, discussed with .
[2019-03-05] MEDS: Arformoterol 15 mcg/2 ml Inh Sol IH SCH (21:46)
[2019-03-05] MEDS: Budesonide 0.5 mg/2 ml Inhal Susp UD IH SCH (21:47)
[2019-03-05] MEDS: Insulin Lispro (humaLOG) LOW Coverage SC SCH (22:00)
--- NOTE | 2019-03-05 22:36 | PN ---
DATE: 03/05/2019 ENDOCRINOLOGY FOLLOWUP NOTE LOCATION: Room 319. SUBJECTIVE: This is a 78-year-old female with recent uncontrolled type 2 diabetes, presenting here with generalized body weakness and failure to thrive with marked anorexia and weight loss and generalized body weakness and is now being followed closely for metabolic management. Her glycemic levels are fluctuating, but improved and the glucose values today have ranged from 99 to 121 mg/dL. LABORATORY DATA: Her chemistry showed a BUN of 48, sodium 139, potassium 4.7, chloride 109, CO2 of 23, glucose 121 and creatinine 1.2. ASSESSMENT: This is a 78-year-old female with uncontrolled and decompensated type 2 diabetes, presenting here with failure to thrive and progressive weight loss with marked anorexia, dyspepsia and generalized body weakness and is now being followed closely for metabolic management. She also has acute exacerbation of chronic obstructive pulmonary disease, currently on intravenous steroid therapy as given. She also remains clinically euthyroid and biochemically also with near optimal thyroid indices as noted, on levothyroxine replacement therapy. PLAN OF MANAGEMENT: We will modify her coverage scale to obviate hypoglycemia and detailed orders have been given, especially with the variability of her oral intake as noted. We will order a low-dose correction scale using Humalog insulin as given. We will obtain serial chemistries and supplement accordingly as needed. We will also add a low-dose oral hypoglycemic drug therapy with Amaryl given as 2 mg once daily in the morning as ordered. We will titrate incrementally as indicated to optimize metabolic control. We will obtain serial chemistries and supplement accordingly as needed. We will follow. Emelia Tracey MD
[2019-03-06 06:03] LABS: HEMOGLOBIN 8.9 g/dL (12.0-16.0); LYMPH # 0.5 (1.2-3.4); LYMPH % 9.2 % (22.0-35.0); MEAN CELL VOLUME 95.6 fl (80.0-105.0); MEAN CORPUSCULAR HEMOGLOBIN 32.6 pg (25.0-35.0); MEAN CORPUSCULAR HGB CONC 34.1 g/dl (31.0-37.0); MEAN PLATELET VOLUME 9.9 fl (7.0-11.0); MONO # 0.4 (0.1-0.6); MONO % 6.3 % (1.0-6.0); RBC 2.73 10^6/uL (3.5-6.1); RED CELL DISTRIBUTION WIDTH 13.5 % (11.5-14.5); WHITE BLOOD COUNT 5.5 10^3/uL (4.5-11.0)
[2019-03-06 06:17] LABS: INR 2.14; PARTIAL THROMBOPLASTIN TIME 32.4 Seconds (26.9-38.3); PROTHROMBIN TIME 24.2 SECONDS (9.4-12.5)
[2019-03-06] MEDS: Insulin Lispro (humaLOG) LOW Coverage SC SCH ×4 (06:44→22:22)
[2019-03-06 06:57] LABS: ALB/GLOB RATIO 1.2 (1.1-1.8); ALBUMIN 3.1 g/dL (3.0-4.8); CALCIUM 8.6 mg/dL (8.4-10.5)
[2019-03-06] MEDS: Budesonide 0.5 mg/2 ml Inhal Susp UD IH SCH ×2 (07:20→20:51)
[2019-03-06] MEDS: Arformoterol 15 mcg/2 ml Inh Sol IH SCH ×2 (07:20→20:51)
[2019-03-06] MEDS ORDERED: Pantoprazole 40 mg EC Tab PO SCH (10:00)
[2019-03-06] MEDS ORDERED: MethylPREDNISolone 40 mg Vial IVP SCH ×2 (10:00→11:24)
--- NOTE | 2019-03-06 12:09 | CP.PCM.HP ---
<Romel Loredo - Last Filed: 03/06/19 19:09> History of Present Illness - History of Present Illness History of Present Illness: Romel Loredo D.O. PGY-3, Internal Medicine Resident, Dr. Lincoln's Service, H&P CC: deconditioning 78 year old female with a PMH of CAD s/p CABG and MV replacement, HFrEF @47%, previous CVA, atrial fibrillation on Coumadin, hypertension, hypothyroidism, breast cancer, achondroplasia, COPD, previous GI bleed, chronic anemia, diabetes, and anxiety/depression who presented originally for weakness, now in the TCU for deconditioning. Patient has no acute complaints at this time. Appears comfortable. Appears eager to get started in physical therapy. Wants to get her strength back. Denies any fever, nausea, vomiting, diarrhea, constip ation, lightheadedness, chest pain, shortness of breath or any other worrisome complaints at this time. PMH: As above. PSH: Breast cancer surgery, pacemaker insertion, pacemaker battery change FH: Noncontributory Medications: Reviewed Allergies: Sulfa Present on Admission - Present on Admission Any Indicators Present on Admission: No Review of Systems - Review of Systems All systems: reviewed and no additional remarkable complaints except (as per HPI) Past Patient History - Infectious Disease Hx of Infectious Diseases: None - Tetanus Immunizations Tetanus Immunization: Unknown - Past Social History Smoking Status: Former Smoker - CARDIAC Hx Cardiac Disorders: Yes (5 stents, mi, cad, cp) Hx Pacemaker: Yes (lcw) Other/Comment: open heart double, carotid endarterectomy, r iliac artery stent, left carotid ptca, - PULMONARY Hx Respiratory Disorders: Yes - NEUROLOGICAL HX Cerebrovascular Accident: Yes (L side weakness) - HEENT Hx HEENT Problems: Yes (reading glasses) Hx Cataracts: Yes (b/l sx) - RENAL Hx Renal Failure: No (denied) - ENDOCRINE/METABOLIC Hx Hypothyroidism: Yes (thyroidectomy) - HEMATOLOGICAL/ONCOLOGICAL Hx Blood Disorders: Yes Hx Anemia: Yes (iron deficiency-IRON INFUSIONS Q MONTH) - INTEGUMENTARY Hx Dermatological Problems: Yes Other/Comment: multiple skin discolorations both arms,dry skin and hammertoes both feet, left great toe 1/2 nail missing, r 3rd toe sm dry deep red wound to top of toe, thick toenails both feet - MUSCULOSKELETAL/RHEUMATOLOGICAL Hx Falls: No - GASTROINTESTINAL Hx Gastrointestinal Disorders: Yes (gi bleed) - GENITOURINARY/GYNECOLOGICAL Hx Reproductive Disorders: No - PSYCHIATRIC Hx Substance Use: No - SURGICAL HISTORY Hx Surgeries: Yes Hx Cardiac Catheterization: Yes Hx Coronary Stent: Yes Other/Comment: removal of blockage in both groin, thyroid sx, rcw pac, picc line - ANESTHESIA Hx Anesthesia: No Hx Anesthesia Reactions: No Hx Malignant Hyperthermia: No Meds Allergies/Adverse Reactions: Allergies Allergy/AdvReac Type Severity Reaction Status Date / Time Sulfa (Sulfonamide Allergy Mild RASH Verified 02/06/19 19:41 Antibiotics) Physical Exam - Constitutional Appears: Non-toxic, No Acute Distress - Head Exam Head Exam: ATRAUMATIC, NORMOCEPHALIC - Eye Exam Eye Exam: EOMI. absent: Scleral icterus - ENT Exam ENT Exam: Mucous Membranes Moist, Normal Oropharynx - Neck Exam Neck exam: Positive for: Normal Inspection - Respiratory Exam Respiratory Exam: Clear to Auscultation Bilateral. absent: Rales, Rhonchi, Wheezes - Cardiovascular Exam Cardiovascular Exam: +S1, +S2. absent: Gallop, Rubs - GI/Abdominal Exam GI & Abdominal Exam: Normal Bowel Sounds, Soft. absent: Distended, Tenderness - Extremities Exam Extremities exam: Negative for: calf tenderness, pedal edema - Neurological Exam Neurological exam: Alert - Skin Skin Exam: Dry, Warm Results - Vital Signs Recent Vital Signs: Last Vital Signs Temp 98.3 F 03/05/19 14:22 Pulse 80 03/05/19 14:22 Resp 20 03/05/19 14:22 BP 106/59 L 03/06/19 09:47 Pulse Ox 97 03/05/19 14:00 - Labs Result Diagrams: 03/06/19 05:30 03/06/19 05:30 Labs: Laboratory Results - last 24 hr 03/05/19 03/06/19 03/06/19 22:41 04:46 05:30 WBC 5.5 D RBC 2.73 L Hgb 8.9 L Hct 26.1 L MCV 95.6 MCH 32.6 MCHC 34.1 RDW 13.5 Plt Count 117 L MPV 9.9 Neut % (Auto) 84.5 H Lymph % (Auto) 9.2 L Callahan % (Auto) 6.3 H Eos % (Auto) 0.0 L Baso % (Auto) 0.0 Lymph # (Auto) 0.5 L Callahan # (Auto) 0.4 Eos # (Auto) 0.0 Baso # (Auto) 0.00 Absolute Neuts (auto) 4.66 PT INR APTT Sodium Potassium Chloride Carbon Dioxide Anion Gap BUN Creatinine Est GFR ( Amer) Est GFR (Non-Af Amer) POC Glucose (mg/dL) 112 H 92 Random Glucose Calcium Phosphorus Magnesium Total Bilirubin AST ALT Alkaline Phosphatase Total Protein Albumin Globulin Albumin/Globulin Ratio Thyroxine (T4) TSH 3rd Generation 03/06/19 03/06/19 03/06/19 05:30 05:30 05:30 WBC RBC Hgb Hct MCV MCH MCHC RDW Plt Count MPV Neut % (Auto) Lymph % (Auto) Callahan % (Auto) Eos % (Auto) Baso % (Auto) Lymph # (Auto) Callahan # (Auto) Eos # (Auto) Baso # (Auto) Absolute Neuts (auto) PT 24.2 H INR 2.14 APTT 32.4 Sodium 139 Potassium 5.4 H Chloride 109 H Carbon Dioxide 24 Anion Gap 11 BUN 51 H Creatinine 1.2 Est GFR ( Amer) 53 Est GFR (Non-Af Amer) 44 POC Glucose (mg/dL) Random Glucose 90 Calcium 8.6 Phosphorus 2.5 Magnesium 2.0 Total Bilirubin 0.3 AST 20 ALT 28 Alkaline Phosphatase 99 Total Protein 5.8 Albumin 3.1 Globulin 2.7 Albumin/Globulin Ratio 1.2 Thyroxine (T4) 7.3 TSH 3rd Generation 0.04 L 03/06/19 11:37 WBC RBC Hgb Hct MCV MCH MCHC RDW Plt Count MPV Neut % (Auto) Lymph % (Auto) Callahan % (Auto) Eos % (Auto) Baso % (Auto) Lymph # (Auto) Callahan # (Auto) Eos # (Auto) Baso # (Auto) Absolute Neuts (auto) PT INR APTT Sodium Potassium Chloride Carbon Dioxide Anion Gap BUN Creatinine Est GFR ( Amer) Est GFR (Non-Af Amer) POC Glucose (mg/dL) 212 H Random Glucose Calcium Phosphorus Magnesium Total Bilirubin AST ALT Alkaline Phosphatase Total Protein Albumin Globulin Albumin/Globulin Ratio Thyroxine (T4) TSH 3rd Generation Assessment & Plan - Assessment and Plan (Free Text) Assessment: 78 year old female with a PMH of CAD s/p CABG and MV replacement, HFrEF @47%, previous CVA, atrial fibrillation on Coumadin, hypertension, hypothyroidism, breast cancer, achondroplasia, COPD, previous GI bleed, chronic anemia, diabetes, and anxiety/depression who presented originally for weakness, now in the TCU for deconditioning. Plan: 1. Deconditioning 2. GEORGE 3. CAD s/p CABG and MV replacement 4. Afib 5. HFrEF 6. HTN 7. COPD 8. Chronic anemia 9. Anxiety and depression 10. Hypothyroidism 11. Hyperkalemia Patient will continue with physical therapy in the transitional care unit. We will give her a dose of lactulose for hyperkalemia. Her acute kidney injury has improved. Her dementia we will continue with Aricept and memantine. For heart failure she will can be continued on lisinopril and carvedilol. Levothyroxine will be continued for hypothyroidism. In terms of her COPD pulmonary is following and her methylprednisolone has been decreased to 20 mg daily. We will continue with as needed nebulizer treatments as well as Brovana and Pulmicort. For her CAD she is on aspirin and Lipitor. For atrial fibrillation we will continue with digoxin. For her difficulty with sleeping we will continue with her zolpidem at home. She is on warfarin therapy for atrial fibrillation and is prior to her INR is within range. We will check this every couple of days. We will continue to monitor the patient closely. Patient was seen and examined and case was discussed at length with attending physician. - Date & Time Date: 03/06/19 Time: 07:40 <Joaquín Lincoln S - Last Filed: 03/06/19 19:23> Results - Vital Signs Recent Vital Signs: Last Vital Signs Temp 98.3 F 03/05/19 14:22 Pulse 80 03/05/19 14:22 Resp 20 03/05/19 14:22 BP 112/57 L 03/06/19 17:39 Pulse Ox 97 03/05/19 14:00 - Labs Result Diagrams: 03/06/19 05:30 03/06/19 05:30 Labs: Laboratory Results - last 24 hr 03/05/19 03/06/19 03/06/19 22:41 04:46 05:30 WBC 5.5 D RBC 2.73 L Hgb 8.9 L Hct 26.1 L MCV 95.6 MCH 32.6 MCHC 34.1 RDW 13.5 Plt Count 117 L MPV 9.9 Neut % (Auto) 84.5 H Lymph % (Auto) 9.2 L Callahan % (Auto) 6.3 H Eos % (Auto) 0.0 L Baso % (Auto) 0.0 Lymph # (Auto) 0.5 L Callahan # (Auto) 0.4 Eos # (Auto) 0.0 Baso # (Auto) 0.00 Absolute Neuts (auto) 4.66 PT INR APTT Sodium Potassium Chloride Carbon Dioxide Anion Gap BUN Creatinine Est GFR ( Amer) Est GFR (Non-Af Amer) POC Glucose (mg/dL) 112 H 92 Random Glucose Hemoglobin A1c Calcium Phosphorus Magnesium Total Bilirubin AST ALT Alkaline Phosphatase Total Protein Albumin Globulin Albumin/Globulin Ratio Thyroxine (T4) TSH 3rd Generation 03/06/19 03/06/19 03/06/19 05:30 05:30 05:30 WBC RBC Hgb Hct MCV MCH MCHC RDW Plt Count MPV Neut % (Auto) Lymph % (Auto) Callahan % (Auto) Eos % (Auto) Baso % (Auto) Lymph # (Auto) Callahan # (Auto) Eos # (Auto) Baso # (Auto) Absolute Neuts (auto) PT 24.2 H INR 2.14 APTT 32.4 Sodium 139 Potassium 5.4 H Chloride 109 H Carbon Dioxide 24 Anion Gap 11 BUN 51 H Creatinine 1.2 Est GFR ( Amer) 53 Est GFR (Non-Af Amer) 44 POC Glucose (mg/dL) Random Glucose 90 Hemoglobin A1c 5.7 Calcium 8.6 Phosphorus 2.5 Magnesium 2.0 Total Bilirubin 0.3 AST 20 ALT 28 Alkaline Phosphatase 99 Total Protein 5.8 Albumin 3.1 Globulin 2.7 Albumin/Globulin Ratio 1.2 Thyroxine (T4) TSH 3rd Generation 03/06/19 03/06/19 03/06/19 05:30 11:37 16:42 WBC RBC Hgb Hct MCV MCH MCHC RDW Plt Count MPV Neut % (Auto) Lymph % (Auto) Callahan % (Auto) Eos % (Auto) Baso % (Auto) Lymph # (Auto) Callahan # (Auto) Eos # (Auto) Baso # (Auto) Absolute Neuts (auto) PT INR APTT Sodium Potassium Chloride Carbon Dioxide Anion Gap BUN Creatinine Est GFR ( Amer) Est GFR (Non-Af Amer) POC Glucose (mg/dL) 212 H 128 H Random Glucose Hemoglobin A1c Calcium Phosphorus Magnesium Total Bilirubin AST ALT Alkaline Phosphatase Total Protein Albumin Globulin Albumin/Globulin Ratio Thyroxine (T4) 7.3 TSH 3rd Generation 0.04 L Assessment & Plan - Assessment and Plan (Free Text) Plan: Pt seen and examined by me. I have reviewed the note of the medical dir and I agree with it. I have discussed the assessment and plan with the resident. I have reviewed the medications and the last labs.
--- NOTE | 2019-03-06 12:36 | CON ---
DATE: 03/06/2019 PULMONARY CONSULTATION NOTE REFERRING PHYSICIAN: Joaquín Lincoln MD REASON FOR CONSULTATION: COPD. HISTORY OF PRESENT ILLNESS: This is a 78-year-old female with past medical history significant for coronary artery disease, history of coronary artery bypass surgery, mitral valve replacement, cardiomyopathy with decreased LV function, history of stroke, atrial fibrillation, hypertension, hypothyroidism, history of breast cancer, chronic obstructive lung disease, steroids-dependent, history of anemia, diabetes mellitus, anxiety, depression. The patient urgently came to the hospital complaining of cough and shortness of breath. The patient presently on TR for rehabilitation. Today seen lying in bed. Reports feeling well. Denies any cough, shortness of breath, chest pain, nausea, vomiting, diarrhea. PAST MEDICAL HISTORY: As per history of present illness. ALLERGIES: SULFA. SOCIAL HISTORY: Nonsmoker. No EtOH abuse. No illicit drug use. FAMILY HISTORY: No significant cardiopulmonary disease reported. MEDICATIONS: Reviewed. Albuterol 3 mL inhalation every 12 hours p.r.n., Xanax 0.25 mg at bedtime p.r.n., Brovana 15 mcg inhalation every 12 hours, aspirin 81 mg daily, Lipitor 40 mg at dinner, Pulmicort 0.5 mg inhalation every 12 hours, Coreg 3.125 mg twice a day, digoxin 0.125 mg Saturday, Saturday and Saturday, Aricept 10 mg daily, glimepiride 10 mg daily, Humalog sliding scale a.c. and at bedtime, Synthroid 50 mcg a.c., lisinopril 2.5 mg daily, Namenda 10 mg daily, Solu-Medrol 40 mg IV push daily, Amitiza 24 mcg twice a day, Protonix 40 mg daily, Ultram 50 mg every 8 hours p.r.n. for mild pain, Coumadin 2 mg daily, Ambien 5 mg at bedtime. REVIEW OF SYSTEMS: No headache, rhinitis, cough, shortness of breath, chest pain, abdominal pain, nausea, vomiting, diarrhea, leg pain or leg swelling reported at this time. PHYSICAL EXAMINATION: GENERAL: No acute distress. VITAL SIGNS: Blood pressure 106/59, pulse 80, temperature 98.3, oxygen saturation 97% on room air. HEENT: Moist mucous membranes. Crowded airway. NECK: Supple. No JVD. LUNGS: Fair airflow bilaterally. CARDIOVASCULAR: S1 and S2. ABDOMEN: Soft, nontender. No distention. No organomegaly. EXTREMITIES: No bilateral lower extremity edema. NEUROLOGIC: Awake, alert and verbal. Following commands. LABORATORY DATA: Reviewed. WBC 5.5, RBC 2.73, hemoglobin 8.9, hematocrit 26.1 and platelets 117. PT 24.2 and INR 2.14, APTT 32.4. Sodium 139, potassium 5.4, chloride 109, carbon dioxide 24, anion gap 11, BUN 51, creatinine 1.2, GFR 44, POC glucose 92, random glucose 90, calcium 8.6, phosphorus 2.5, magnesium 2.0, total bilirubin 0.3, AST 20, ALT 28, alkaline phosphatase 99, total protein 5.8, albumin 3.1, globulin 3.7, albumin-globulin ratio 1.2, T4 7.4, TSH 0.04. IMPRESSION AND PLAN: Chronic obstructive lung disease, cardiomyopathy, coronary artery disease, history of valve replacement, atrial fibrillation with pacemaker, hypertension, anemia, hypothyroidism steroid-dependent, history of breast cancer. Pulmonary point of view, continue inhaled bronchodilator. We will Solu-Medrol to 20 mg daily, sleep apnea precaution, head of bed elevated 45 degrees, careful with sedation. We will place the patient back on Zithromax 500 mg daily for chronic obstructive lung disease, fall precautions, continue physical therapy, recommend the patient have full pulmonary function test as outpatient to evaluate extensive chronic lung disease. Recommend the patient have sleep study as outpatient to evaluate sleep apnea syndrome. The patient was seen and examined with Dr. Justice. Discussed assessment and plan as described above. The patient was seen and examined by Juan Knutson, nurse practitioner. Discussed assessment and plan as described above. Thank you for this consult. We will follow with you. Zenia Martinez APN Cyril Justice MD
[2019-03-06] MEDS: Digoxin 125 mcg (0.125 mg) Tab PO SCH (13:16)
--- NOTE | 2019-03-06 18:09 | PN ---
DATE: 03/06/2019 ENDO FOLLOWUP NOTE LOCATION: Room 319. SUBJECTIVE: This is a 78-year-old female with recent uncontrolled type 2 diabetes, presented here with generalized body weakness and supervening glycemic fluctuations and is now being followed closely for metabolic management. Her glycemic levels today have ranged from 92-212 mg/dL. LABORATORY DATA: Her chemistry showed a BUN of 51, sodium 139, potassium 5.4, chloride 109, CO2 of 24, glucose 90 and creatinine 1.2. Her thyroid study shows a T4, thyroxin level of 7.3 mcg/dL with the TSH of 0.04. ASSESSMENT: This is a 78-year-old female with recent uncontrolled type 2 diabetes with fluctuating glycemic profile that is improving accordingly as noted. She also has longstanding history of hypothyroidism, on levothyroxine replacement therapy given the bigger dose as noted thereof. At this time, she has a suppressed TSH with normal thyroxine values as noted. She remains clinically and biochemically euthyroid with possible superimposed acute sick euthyroid syndrome as noted. PLAN OF MANAGEMENT: We will continue the Amaryl given as 2 mg once daily in the morning as ordered, and we will titrate accordingly to optimize metabolic control. We will also continue the low dose correction scale using Humulin insulin as given. Moreover, we will continue the modified the lower dose of the levothyroxine given as 50 mcg daily to start tomorrow as ordered. She was in the higher dosing regimen, which made her eventually slightly suppressed as noted, which is also part of the acute sick euthyroid mechanisms. We will obtain serial chemistries and supplement accordingly as needed. We will also obtain serial thyroid studies and adjust her dose regimen accordingly. Emelia Tracey MD
--- NOTE | 2019-03-06 22:51 | CON ---
DATE: 03/06/2019 This is [facility] visit on TCU. For Dr. Newman. CHIEF COMPLAINT: Deconditioning. SUBJECTIVE: The patient is a 78-year-old female now transferred to TCU after originally being hospitalized for generalized weakness with reported low blood count. At present the patient is sitting up in bed, reporting that she feels stronger and wants to go home, is otherwise in no acute distress. PAST MEDICAL HISTORY: Severe ASCVD status post stenting with bypass surgery, mechanical mitral valve replacement, diabetes mellitus, hypertension, hypothyroidism, COPD, discogenic disease with kyphotic fractures with kyphoplasty in the past, anemia of chronic disease, iron deficiency anemia, chronic kidney injury,depression, anxiety, chronic pain. The patient also has significant history for breast cancer with pacer. MEDICATIONS: Medicines on admission included metformin, Ambien, Amitiza, albuterol, Coumadin, aspirin, carvedilol, Aricept, Lasix, Namenda, Protonix, spironolactone, Xanax, Lipitor, Celexa, Tramadol. FAMILY HISTORY/SOCIAL HISTORY: Noncontributory. REVIEW OF SYSTEMS: A 12-point review of systems was done and was negative to questions except for items mentioned in the history of present illness. PHYSICAL EXAMINATION VITAL SIGNS: Stable. HEENT: Unremarkable. NECK: Supple. HEART: Regular rate, 1/6 systolic ejection murmur. LUNGS: Clear with pacer noted. ABDOMEN: Soft and nontender. EXTREMITIES: No edema. SKIN: Warm and dry. NEUROLOGIC: Awake and alert. LABORATORY DATA: The patient's labs were done earlier today showing a white blood cell count of 5.5, hemoglobin is 8.9, hematocrit 26.1, platelet count is 117,000 with a metabolic panel showing a potassium of 5.4, nonfasting glucose of 212. TSH was 0.04. INR of 2.14 on Coumadin. ASSESSMENT: For this patient is that of anemia of chronic disease/iron deficiency anemia, with a most recent percent iron saturation of 21% on 02/10/2019. Deconditioning, atherosclerotic cardiovascular disease status post stenting, status post coronary artery bypass graft with mechanical mitral valve replacement, diabetes mellitus, hypertension, hypothyroidism, chronic obstructive pulmonary disease, discogenic disease, kyphoplasty history, history of gastrointestinal bleed, depression, questionable early Alzheimer's disease. PLAN: [place] this patient after conversation with Dr. Newman is to continue present medical regimen. We will monitor her clinically with her INR being monitored as she is on Coumadin with consultants recommendations to continue. This is a complex patient with a comprehensive medically necessary and appropriate visit carried out in excess of 40 minutes with the patient questions answered to her satisfaction. Niall Vega MD
--- NOTE | 2019-03-06 23:15 | CON ---
DATE: 03/06/2019 CONSULT SERVICE: Cardiology. REASON FOR CONSULTATION AND FOLLOWUP: Cardiac evaluation, continuity of care in Transitional Care Unit, history of coronary artery disease with CABG, history of cardiomyopathy ischemic, status post AICD, and history of chronic atrial fibrillation, on Coumadin. BRIEF CLINICAL HISTORY: A 78-year-old female with past medical history of coronary artery disease, history of CABG, history of CVA, history of atrial fibrillation, history of mitral valve replacement in the past, history of hypothyroidism, history of multiple stent, and admitted with failure to thrive. The patient's interrogation done pacemaker on 02/25/2019, that shows no arrhythmia except baseline underlying AFib, battery life 5.9 years. PAST MEDICAL HISTORY: Significant for coronary artery disease, CABG 20 years ago, status post MVR, history of atrial fibrillation, on Coumadin, history of hypertension, history of recent cardiac catheterization 09/09/2018 shows [place] triple-vessel disease, LV ejection fraction 25%, successful PTCA of totally occluded RCA, proximal distal RCA and POBA to mid RCA. Recently, the patient had AICD generator changed. SOCIAL HISTORY: Denies any smoking. Denies any history of alcohol abuse. CURRENT MEDICATIONS: The patient is taking at home tramadol, zolpidem, warfarin, spirolactone, metformin, lisinopril, and Aricept. REVIEW OF SYSTEMS: As per HPI. ALLERGIES: SULFA DRUG. PHYSICAL EXAMINATION: GENERAL: As follows; height of the patient 5 feet 2 inches, weight of the patient 110 pounds, and body mass index 20.1 kg/m2. VITAL SIGNS: Temperature afebrile, heart rate 80, and blood pressure 133/60. HEENT: PERRLA. Extraocular muscles intact. NECK: Supple. No carotid bruits or thyromegaly. CHEST: Clear to auscultation. HEART: S1 and S2 regular. ABDOMEN: Soft. EXTREMITIES: Clubbing and cyanosis negative. LABORATORY DATA: WBC 5.5, hemoglobin 8.9, hematocrit 26.1, and platelet count 117. Chemistry shows sodium 130, potassium 5.4, chloride 109, carbon dioxide 24, anion gap of 11, BUN 51, and creatinine 1.2. IMPRESSION: A 78-year-old female with past medical history significant for coronary artery disease, status post mitral valve repair 20 years ago, history of atrial fibrillation, history of cardiomyopathy with ischemic ejection fraction of 25%, status post automatic implantable cardioverter-defibrillator replaced, battery changed 1 year ago, recently status post pacemaker interrogation done 02/25/2019 that shows baseline atrial fibrillation; otherwise, no other , batter life 5.9 years. The patient with history of multiple cerebrovascular accidents, admitted with failure to thrive. RECOMMENDATIONS: Continue anticoagulation. Goal is to keep INR between 2 to 2.5. The patient had mitral valve replacement with history of multiple stents. Continue Coreg. Continue Coumadin. Continue digoxin. Continue lactulose. Continue tramadol. We will follow with you. Thank you Dr. Lincoln for providing us the opportunity in taking care of the patient, Franchesca Ohara. Cyril Naranjo MD
--- NOTE | 2019-03-06 23:23 | HP ---
DATE OF EXAM: 03/06/2019 HISTORY OF PRESENT ILLNESS: The patient was seen and examined. I do agree with the note of the medical accounts receivable specialist. I was involved in the plan of care. The patient was initially admitted to the hospital for failure to thrive. She was given IV fluids. She had a CT scan of the abdomen. The patient had improvement of her symptoms. She also had acute kidney injury that has improved. She has been sent to a subacute rehab for further physical therapy. I did review the records of the hospital. The patient was seen and examined. I do agree with the note of the medical accounts receivable specialist. The patient has coronary artery disease and is going to continue with aspirin. The patient has dyslipidemia and is on Lipitor. The patient is on levothyroxine for the hypothyroidism. The patient has CHF secondary to systolic dysfunction that is stable. She is going to be on Ambien for her sleeping. She is on Coumadin for her atrial fibrillation. She has hypokalemia and is going to be given Kayexalate. She is being followed by Dr. Tracey from Endocrinology, and I appreciate her input. The patient's thyroid was decreased. The patient is on Aricept for dementia. She is on Amaryl for diabetes type 2. She is tramadol for pain. She is on Solu-Medrol for her COPD. Joaquín Lincoln MD
[2019-03-07] MEDS: Pantoprazole 40 mg EC Tab PO SCH (05:30)
[2019-03-07] MEDS ORDERED: Levothyroxine 50 MCG TAB PO SCH (06:00)
[2019-03-07] MEDS: Insulin Lispro (humaLOG) LOW Coverage SC SCH ×3 (06:51→16:29)
[2019-03-07] MEDS: Budesonide 0.5 mg/2 ml Inhal Susp UD IH SCH ×2 (07:16→19:43)
[2019-03-07] MEDS: Arformoterol 15 mcg/2 ml Inh Sol IH SCH ×2 (07:16→19:43)
--- NOTE | 2019-03-07 11:14 | CP.PCM.PN ---
<Romel Loredo - Last Filed: 03/07/19 11:07> Subjective - Date & Time of Evaluation Date of Evaluation: 03/07/19 Time of Evaluation: 07:20 - Subjective Subjective: Romel Loredo D.O. PGY-3, Internal Medicine Resident, Dr. Lincoln's Service, Progress Note 78 year old female with a PMH of CAD s/p CABG and MV replacement, HFrEF @47%, previous CVA, atrial fibrillation on Coumadin, hypertension, hypothyroidism, breast cancer, achondroplasia, COPD, previous GI bleed, chronic anemia, diabetes, and anxiety/depression who presented originally for weakness, now in the TCU for deconditioning. Patient was seen and examined at bedside. Doing well at this time. Eager to go home. Objective - Vital Signs/Intake and Output Vital Signs (last 24 hours): Temp Pulse Resp BP Pulse Ox 98.3 F 81 20 138/64 97 03/05/19 14:22 03/07/19 09:32 03/05/19 14:22 03/07/19 09:32 03/05/19 14:00 - Medications Medications: Current Medications Albuterol/Ipratropium (Duoneb 3 Mg/0.5 Mg (3 Ml) Ud) 3 ml IH Q2H PRN PRN Reason: Shortness of Breath Alprazolam (Xanax) 0.25 mg PO HS PRN; Protocol PRN Reason: Anxiety Stop: 03/12/19 13:28 Last Admin: 03/05/19 22:17 Dose: 0.25 mg Arformoterol Tartrate (Brovana) 15 mcg IH [id number] [facility] Last Admin: 03/07/19 07:16 Dose: 15 mcg Aspirin (Ecotrin) 81 mg PO 0800 [facility] Last Admin: 03/07/19 08:05 Dose: 81 mg Atorvastatin Calcium (Lipitor) 40 mg PO DIN [facility] Last Admin: 03/06/19 17:40 Dose: 40 mg Azithromycin (Zithromax) 500 mg PO DAILY [facility]; Protocol Last Admin: 03/07/19 09:32 Dose: 500 mg Budesonide (Pulmicort Respules) 0.5 mg IH [id number] [facility] Last Admin: 03/07/19 07:16 Dose: 0.5 mg Carvedilol (Coreg) 3.125 mg PO 0800,1730 [facility] Last Admin: 03/07/19 08:05 Dose: 3.125 mg Digoxin (Digoxin) 0.125 mg PO MWF@1400 [facility] Last Admin: 03/06/19 13:16 Dose: 0.125 mg Donepezil HCl (Aricept) 10 mg PO HS [facility] Glimepiride (Amaryl) 2 mg PO 0800 [facility] Last Admin: 03/07/19 08:06 Dose: 2 mg Insulin Human Lispro (Humalog Low) 0 units SC [facility]; Protocol Last Admin: 03/07/19 06:51 Dose: Not Given Levothyroxine Sodium (Synthroid) 25 mcg PO 0600 [facility] Lisinopril (Zestril) 2.5 mg PO DAILY [facility] Last Admin: 03/07/19 09:32 Dose: 2.5 mg Memantine (Namenda) 10 mg PO DAILY [facility] Last Admin: 03/07/19 09:31 Dose: 10 mg Lubiprostone [ Amitiza] 24 Mcg ( Home Med) 24 mcg PO BID PRN PRN Reason: Constipation Pantoprazole Sodium (Protonix Ec Tab) 40 mg PO 0600 [facility] Last Admin: 03/07/19 05:30 Dose: 40 mg Prednisone (Prednisone Tab) 20 mg PO DAILY [facility] Tramadol HCl (Ultram) 50 mg PO Q8 PRN PRN Reason: Pain, Mild (1-3) Warfarin Sodium (Coumadin) 2 mg PO 1800 [facility]; Protocol Last Admin: 03/06/19 17:39 Dose: 2 mg Zolpidem Tartrate (Ambien) 5 mg PO HS [facility]; Protocol Last Admin: 03/06/19 21:12 Dose: 5 mg - Labs Labs: 03/06/19 05:30 03/06/19 05:30 PT 24.2 SECONDS (9.4-12.5) H 03/06/19 05:30 INR 2.14 03/06/19 05:30 APTT 32.4 Seconds (26.9-38.3) 03/06/19 05:30 - Constitutional Appears: Non-toxic, No Acute Distress - Head Exam Head Exam: ATRAUMATIC, NORMOCEPHALIC - Eye Exam Eye Exam: EOMI. absent: Scleral icterus - ENT Exam ENT Exam: Mucous Membranes Moist, Normal Oropharynx - Neck Exam Neck exam: Positive for: Normal Inspection - Respiratory Exam Respiratory Exam: Clear to Auscultation Bilateral. absent: Rales, Rhonchi, Wheezes - Cardiovascular Exam Cardiovascular Exam: +S1, +S2. absent: Gallop, Rubs - GI/Abdominal Exam GI & Abdominal Exam: Normal Bowel Sounds, Soft. absent: Distended, Tenderness - Extremities Exam Extremities exam: Negative for: calf tenderness, pedal edema - Neurological Exam Neurological exam: Alert, Awake - Skin Skin Exam: Dry, Warm Assessment and Plan - Assessment and Plan (Free Text) Assessment: 78 year old female with a PMH of CAD s/p CABG and MV replacement, HFrEF @47%, previous CVA, atrial fibrillation on Coumadin, hypertension, hypothyroidism, breast cancer, achondroplasia, COPD, previous GI bleed, chronic anemia, diabetes, and anxiety/depression who presented originally for weakness, now in the TCU for deconditioning. Plan: 1. Deconditioning 2. Dementia 3. CAD s/p CABG and MV replacement 4. Afib 5. HFrEF 6. HTN 7. COPD 8. Chronic anemia 9. Anxiety and depression 10. Hypothyroidism 11. Hyperkalemia 12. GEORGE - resolved Continue with physical therapy. Currently on Aricept and memantine for dementia. On lisinopril and carvedilol for heart failure. On levothyroxine for hypothyroidism. Pulmonary following for COPD, she is currently on methylprednisolone, will discontinue this and change her to p.o. prednisone. Also continues on azithromycin p.o. This way we can discontinue her IV. Continue with nebulizer treatments and Brovana and Pulmicort. She continues on aspirin and Lipitor for history of CAD. For atrial fibrillation she is currently doing well with digoxin and warfarin. We will continue the patient back on levothyroxine for hypothyroidism. Input and recommendations by endocrinology have been reviewed and appreciated. For her anemia currently hematology is following and their recommendations have also been reviewed and appreciated. For her difficulty sleeping we will continue with zolpidem. For her anxiety we also has as needed alprazolam which the patient has not really required in the last 24 hours. We will discontinue the patient's glimepiride as the last A1c was 5.7. Patient was seen and examined and case was discussed at length with attending physician. <Joaquín Lincoln - Last Filed: 03/07/19 16:25> Objective - Vital Signs/Intake and Output Vital Signs (last 24 hours): Temp Pulse Resp BP Pulse Ox 98.3 F 80 20 138/64 99 03/05/19 14:22 03/07/19 13:27 03/05/19 14:22 03/07/19 09:32 03/07/19 13:27 - Medications Medications: Current Medications Albuterol/Ipratropium (Duoneb 3 Mg/0.5 Mg (3 Ml) Ud) 3 ml IH Q2H PRN PRN Reason: Shortness of Breath Alprazolam (Xanax) 0.25 mg PO HS PRN; Protocol PRN Reason: Anxiety Stop: 03/12/19 13:28 Last Admin: 03/05/19 22:17 Dose: 0.25 mg Arformoterol Tartrate (Brovana) 15 mcg IH [id number] [facility] Last Admin: 03/07/19 07:16 Dose: 15 mcg Aspirin (Ecotrin) 81 mg PO 0800 [facility] Last Admin: 03/07/19 08:05 Dose: 81 mg Atorvastatin Calcium (Lipitor) 40 mg PO DIN [facility] Last Admin: 03/06/19 17:40 Dose: 40 mg Azithromycin (Zithromax) 500 mg PO DAILY [facility]; Protocol Last Admin: 03/07/19 09:32 Dose: 500 mg Budesonide (Pulmicort Respules) 0.5 mg IH [id number] [facility] Last Admin: 03/07/19 07:16 Dose: 0.5 mg Carvedilol (Coreg) 3.125 mg PO 0800,1730 [facility] Last Admin: 03/07/19 08:05 Dose: 3.125 mg Digoxin (Digoxin) 0.125 mg PO MWF@1400 [facility] Last Admin: 03/06/19 13:16 Dose: 0.125 mg Donepezil HCl (Aricept) 10 mg PO HS [facility] Insulin Human Lispro (Humalog Low) 0 units SC [facility]; Protocol Last Admin: 03/07/19 11:48 Dose: Not Given Levothyroxine Sodium (Synthroid) 25 mcg PO 0600 [facility] Lisinopril (Zestril) 2.5 mg PO DAILY [facility] Last Admin: 03/07/19 09:32 Dose: 2.5 mg Memantine (Namenda) 10 mg PO DAILY [facility] Last Admin: 03/07/19 09:31 Dose: 10 mg Lubiprostone [ Amitiza] 24 Mcg ( Home Med) 24 mcg PO BID PRN PRN Reason: Constipation Pantoprazole Sodium (Protonix Ec Tab) 40 mg PO 0600 [facility] Last Admin: 03/07/19 05:30 Dose: 40 mg Prednisone (Prednisone Tab) 20 mg PO DAILY [facility] Tramadol HCl (Ultram) 50 mg PO Q8 PRN PRN Reason: Pain, Mild (1-3) Warfarin Sodium (Coumadin) 2 mg PO 1800 [facility]; Protocol Last Admin: 03/06/19 17:39 Dose: 2 mg Zolpidem Tartrate (Ambien) 5 mg PO HS [facility]; Protocol Last Admin: 03/06/19 21:12 Dose: 5 mg - Labs Labs: 03/06/19 05:30 03/06/19 05:30 PT 24.2 SECONDS (9.4-12.5) H 03/06/19 05:30 INR 2.14 03/06/19 05:30 APTT 32.4 Seconds (26.9-38.3) 03/06/19 05:30 Assessment and Plan - Assessment and Plan (Free Text) Plan: Pt seen and examined by me. I have reviewed the note of the medical collections and I agree with it. I have discussed the assessment and plan with the resident. I have reviewed the medications and the last labs.
--- NOTE | 2019-03-07 13:20 | PN ---
DATE: 03/07/2019 [facility] on [facility]. SUBJECTIVE: The patient is a 78-year-old female seen lying awake in bed with physiotherapist at the bedside, now participating with TCU protocols for reconditioning, in no acute distress. OBJECTIVE/PHYSICAL EXAMINATION: VITAL SIGNS: Temperature 98.3, pulse 81, respirations 20, blood pressure 138/64 with a pulse ox of 97%. HEENT: Unremarkable. NECK: Supple. HEART: Regular rate. LUNGS: Clear. ABDOMEN: Soft. EXTREMITIES: No edema. SKIN: Warm and dry. NEUROLOGIC: Awake and alert. LABORATORY DATA: The patient's labs will be repeated tomorrow. ASSESSMENT: The assessment for this patient is that of deconditioning, atherosclerotic cardiovascular disease, history of atrial fibrillation, cardiomyopathy, anemia of chronic disease, iron-deficiency anemia, history of cerebrovascular accident, diabetes mellitus, hypothyroidism, and depression. PLAN: The plan for this patient after conversation with Dr. Newman is to continue present medical regimen. We will check the labs in the morning as her most recent hemoglobin was noted to be 8.9, dropping from values while on the medical floor. Her TSH is 0.04 from previous labs with her Synthroid to be cut back with repeat testing in the future. This is a complex patient with a comprehensive medical necessary and appropriate visit carried out in excess of 15 minutes with the patient's questions answered to her satisfaction. Niall Vega MD
--- NOTE | 2019-03-07 15:17 | PN ---
DATE: 03/07/2019 ENDO FOLLOWUP NOTE ROOM: 319, TCU. SUBJECTIVE: This is a 78-year-old female with recent acute exacerbation of COPD, currently on a tapering IV steroid dosing and is now being followed closely for metabolic management. Her glycemic levels are fluctuating, but improved and the glucose values have ranged from 106-122 and 128 mg/dL. Her hemoglobin A1c is 5.7%. Her chemistry showed a BUN of 51, sodium 139, potassium 5.4, chloride 109, CO2 of 24, glucose 90 and creatinine 1.2. Her repeat thyroid studies showed a TSH of 0.04 with a T4 or thyroxine level of 7.3. ASSESSMENT: This is a 78-year-old female with recent uncontrolled type 2 diabetes and hypothyroidism with recent generalized body weakness and weight loss with failure to thrive and supervening lesser levothyroxine requirement thereof. She also had acute exacerbation of chronic obstructive pulmonary disease, currently on a tapering steroid dosing as given. PLAN OF MANAGEMENT: We will continue the low-dose oral hypoglycemic therapy given as Amaryl at 2 mg once daily in the morning as ordered. We will continue also the low-dose correction scale using Humalog insulin as given. Moreover, we will continue the modified and much lower levothyroxine replacement therapy with a dose of 50 mcg once daily in the morning as ordered. We will also continue the low-dose oral hypoglycemic therapy with Amaryl given as 2 mg once daily in the morning as ordered. We will obtain serial chemistries and supplement accordingly as needed. We will also obtain serial thyroid studies and titrate her dose regimen accordingly. Emelia Tracey MD
--- NOTE | 2019-03-07 19:56 | PN ---
DATE: 03/07/2019 HOSPITAL COURSE: The patient was seen and examined. I do agree with the note of the medical record assistant. I was involved in the plan of care. The patient is deconditioned. He is on physical therapy on the Transitional Care Unit. She has dementia and is receiving Aricept. She is going to continue with her levothyroxine for her hypothyroidism. She is on lisinopril and carvedilol for her CHF secondary to systolic dysfunction which is stable. She is going to be on Lipitor for her dyslipidemia. She is on Coumadin, , and digoxin for her atrial fibrillation. The patient is on levothyroxine for her hypothyroidism. She is going to continue with Ambien for sleep. She has acute kidney injury that has improved. She is getting physical therapy and improving. She is tolerating her diet. She is on Protonix for her GERD. Joaquín Lincoln MD
--- NOTE | 2019-03-07 22:29 | PN ---
DATE: 03/07/2019 PULMONARY PROGRESS NOTE REFERRING PHYSICIAN: Dr. Lincoln. SUBJECTIVE: The patient is lying in the bed, head at 45 degrees. Night was unremarkable. Feels better. Decreased wheezing and shortness of breath. No nausea, no vomiting, no diarrhea, no leg pain or leg swelling. OBJECTIVE: GENERAL: No acute distress. VITAL SIGNS: Temperature is 98, heart rate is 81, respiratory rate is 18, blood pressure 144/74, and pulse ox 97% on room air. HEENT: Moist mucous membranes. No ulcer or thrush. NECK: Supple. No JVD. LUNGS: Have few scattered rhonchi. HEART: S1 and S2. ABDOMEN: Soft and nontender. No organomegaly. EXTREMITIES: No edema. NEUROLOGIC: Awake, alert, and follows simple commands. CURRENT MEDICATIONS: She is on Ambien 5 mg at bedtime p.r.n, Aricept 10 mg at bedtime, Brovana inhaled twice a day, Coreg 3.125 mg twice a day, Coumadin 2 mg, , digoxin 0.125 mg daily, DuoNeb every 2 hours p.r.n., Ecotrin 81 mg daily, Lipitor 40 mg daily, Amitiza 24 mcg p.o. twice a day, Namenda 10 mg daily, prednisone 20 mg daily, Protonix 40 mg daily, Pulmicort inhaled twice a day, Synthroid 25 mcg daily, Ultram 25 mg every 8 hours p.r.n., Xanax 0.25 mg at bedtime p.r.n., Zestril 2.5 mg daily, and Zithromax 500 mg daily. LABORATORY DATA: Shows blood sugar this morning of 154. IMPRESSION AND PLAN: Obstructive lung disease, cardiomyopathy, coronary artery disease, history of valve replacement, atrial fibrillation, had a pacemaker, hypertension, anemia, hypothyroid, steroid dependent, and a history of breast cancer. Pulmonary point of view, doing well. Continue p.o. and inhaled bronchodilators, gastric prophylaxis, antibiotics, fall precaution, and anticoagulation. Continue therapy. Thank you and we will follow with you. Cyril Justice MD [facility] # [id number]
[2019-03-08] MEDS: Insulin Lispro (humaLOG) LOW Coverage SC SCH ×5 (00:22→22:20)
[2019-03-08] MEDS: Pantoprazole 40 mg EC Tab PO SCH (05:11)
[2019-03-08] MEDS: Levothyroxine 25 MCG TAB PO SCH (05:11)
[2019-03-08] MEDS: Arformoterol 15 mcg/2 ml Inh Sol IH SCH ×2 (07:29→19:36)
[2019-03-08] MEDS: Budesonide 0.5 mg/2 ml Inhal Susp UD IH SCH ×2 (07:30→19:36)
[2019-03-08 08:05] LABS: INR 1.96; PROTHROMBIN TIME 22.1 SECONDS (9.4-12.5)
--- NOTE | 2019-03-08 08:06 | CP.PCM.PN ---
<Romel Loredo - Last Filed: 03/08/19 09:55> Subjective - Date & Time of Evaluation Date of Evaluation: 03/08/19 Time of Evaluation: 05:10 - Subjective Subjective: Romel Loredo D.O. PGY-3, Internal Medicine Resident, Dr. Lincoln's Service, Progress Note 78 year old female with a PMH of CAD s/p CABG and MV replacement, HFrEF @47%, previous CVA, atrial fibrillation on Coumadin, hypertension, hypothyroidism, breast cancer, achondroplasia, COPD, previous GI bleed, chronic anemia, diabetes, and anxiety/depression who presented originally for weakness, now in the TCU for deconditioning. Patient was seen and examined at bedside resting comfortably. No acute complaints at this time. Still eager to get home. No acute overnight events. Objective - Vital Signs/Intake and Output Vital Signs (last 24 hours): Temp Pulse Resp BP Pulse Ox 98 F 81 18 144/74 97 03/07/19 16:00 03/07/19 17:31 03/07/19 16:00 03/07/19 17:31 03/07/19 16:00 - Medications Medications: Current Medications Albuterol/Ipratropium (Duoneb 3 Mg/0.5 Mg (3 Ml) Ud) 3 ml IH Q2H PRN PRN Reason: Shortness of Breath Alprazolam (Xanax) 0.25 mg PO HS PRN; Protocol PRN Reason: Anxiety Stop: 03/12/19 13:28 Last Admin: 03/05/19 22:17 Dose: 0.25 mg Arformoterol Tartrate (Brovana) 15 mcg IH [id number] [facility] Last Admin: 03/08/19 07:29 Dose: Not Given Aspirin (Ecotrin) 81 mg PO 0800 [facility] Last Admin: 03/07/19 08:05 Dose: 81 mg Atorvastatin Calcium (Lipitor) 40 mg PO DIN [facility] Last Admin: 03/07/19 17:30 Dose: 40 mg Azithromycin (Zithromax) 500 mg PO DAILY [facility]; Protocol Last Admin: 03/07/19 09:32 Dose: 500 mg Budesonide (Pulmicort Respules) 0.5 mg IH [id number] [facility] Last Admin: 03/08/19 07:30 Dose: Not Given Carvedilol (Coreg) 3.125 mg PO 0800,1730 [facility] Last Admin: 03/07/19 17:31 Dose: 3.125 mg Digoxin (Digoxin) 0.125 mg PO MWF@1400 [facility] Last Admin: 03/06/19 13:16 Dose: 0.125 mg Donepezil HCl (Aricept) 10 mg PO [facility] Last Admin: 03/07/19 21:35 Dose: 10 mg Insulin Human Lispro (Humalog Low) 0 units SC [facility]; Protocol Last Admin: 03/08/19 06:47 Dose: Not Given Levothyroxine Sodium (Synthroid) 25 mcg PO 0600 [facility] Last Admin: 03/08/19 05:11 Dose: 25 mcg Lisinopril (Zestril) 2.5 mg PO DAILY [facility] Last Admin: 03/07/19 09:32 Dose: 2.5 mg Memantine (Namenda) 10 mg PO DAILY [facility] Last Admin: 03/07/19 09:31 Dose: 10 mg Multivitamins/Minerals (Therapeutic-M Tab) 1 tab PO 0800 [facility] Lubiprostone [ Amitiza] 24 Mcg ( Home Med) 24 mcg PO BID PRN PRN Reason: Constipation Pantoprazole Sodium (Protonix Ec Tab) 40 mg PO 0600 [facility] Last Admin: 03/08/19 05:11 Dose: 40 mg Prednisone (Prednisone Tab) 20 mg PO DAILY [facility] Tramadol HCl (Ultram) 50 mg PO Q8 PRN PRN Reason: Pain, Mild (1-3) Warfarin Sodium (Coumadin) 2 mg PO 1800 [facility]; Protocol Last Admin: 03/07/19 17:30 Dose: 2 mg Zolpidem Tartrate (Ambien) 5 mg PO [facility]; Protocol Last Admin: 03/07/19 21:35 Dose: 5 mg - Labs Labs: 03/06/19 05:30 03/06/19 05:30 PT 22.1 SECONDS (9.4-12.5) H 03/08/19 07:00 INR 1.96 03/08/19 07:00 APTT 32.4 Seconds (26.9-38.3) 03/06/19 05:30 - Constitutional Appears: Non-toxic, No Acute Distress, Elderly [place] female - Head Exam Head Exam: ATRAUMATIC, NORMOCEPHALIC - Eye Exam Eye Exam: EOMI. absent: Scleral icterus - ENT Exam ENT Exam: Mucous Membranes Moist, Normal Oropharynx - Neck Exam Neck exam: Positive for: Normal Inspection - Respiratory Exam Respiratory Exam: Clear to Auscultation Bilateral. absent: Rales, Rhonchi, Wheezes - Cardiovascular Exam Cardiovascular Exam: +S1, +S2. absent: Gallop, Rubs - GI/Abdominal Exam GI & Abdominal Exam: Normal Bowel Sounds, Soft. absent: Distended, Tenderness - Extremities Exam Extremities exam: Negative for: calf tenderness, pedal edema - Neurological Exam Neurological exam: Alert, Awake - Skin Skin Exam: Dry, Warm Assessment and Plan - Assessment and Plan (Free Text) Assessment: 78 year old female with a PMH of CAD s/p CABG and MV replacement, HFrEF @47%, previous CVA, atrial fibrillation on Coumadin, hypertension, hypothyroidism, breast cancer, achondroplasia, COPD, previous GI bleed, chronic anemia, diabetes, and anxiety/depression who presented originally for weakness, now in the TCU for deconditioning. Plan: 1. Deconditioning 2. Dementia 3. CAD s/p CABG and MV replacement 4. Afib 5. HFrEF 6. HTN 7. COPD 8. Chronic anemia 9. Anxiety and depression 10. Hypothyroidism 11. Hyperkalemia 12. GEORGE - resolved 13. History of breast cancer Participating with physical therapy. For her dementia she is currently on [facility] ept and memantine. No acute issues. For her heart failure she continues on lisinopril and carvedilol. For hypothyroidism she is on levothyroxine now at a reduced dose of 50. Input from endocrinology reviewed and appreciated. Her COPD she is currently doing well and was transitioned to p.o. prednisone 20 mg. We will continue with Pulmicort, Brovana, azithromycin, and as needed breathing treatments. Discussed with patient that although she may feel well she should not keep refusing the breathing treatments. Patient states that she is amenable. Recommendations from a pulmonary team reviewed and appreciated. For her atrial fibrillation she is doing well with digoxin and warfarin. For her chronic anemia she is currently being followed by hematology oncology, other note was reviewed and recommendations appreciated. She continues on zolpidem for difficulty with sleep. She also has as needed alprazolam for anxiety but has not required it. At her request I have started her on a multivitamin. Continue to monitor clinical progress. Patient was seen and examined and case was discussed at length with attending physician. <Joaquín Licnoln S - Last Filed: 03/08/19 15:21> Objective - Vital Signs/Intake and Output Vital Signs (last 24 hours): Temp Pulse Resp BP Pulse Ox 98 F 81 18 144/74 97 03/07/19 16:00 03/07/19 17:31 03/07/19 16:00 03/07/19 17:31 03/07/19 16:00 - Medications Medications: Current Medications Albuterol/Ipratropium (Duoneb 3 Mg/0.5 Mg (3 Ml) Ud) 3 ml IH Q2H PRN PRN Reason: Shortness of Breath Last Admin: 03/08/19 13:48 Dose: 3 ml Alprazolam (Xanax) 0.25 mg PO HS PRN; Protocol PRN Reason: Anxiety Stop: 03/12/19 13:28 Last Admin: 03/05/19 22:17 Dose: 0.25 mg Arformoterol Tartrate (Brovana) 15 mcg IH [id number] [facility] Last Admin: 03/08/19 07:29 Dose: Not Given Aspirin (Ecotrin) 81 mg PO 0800 [facility] Last Admin: 03/08/19 08:22 Dose: 81 mg Atorvastatin Calcium (Lipitor) 40 mg PO DIN [facility] Last Admin: 03/07/19 17:30 Dose: 40 mg Azithromycin (Zithromax) 500 mg PO DAILY [facility]; Protocol Last Admin: 03/08/19 10:02 Dose: 500 mg Budesonide (Pulmicort Respules) 0.5 mg IH [id number] [facility] Last Admin: 03/08/19 07:30 Dose: Not Given Carvedilol (Coreg) 3.125 mg PO 0800,1730 [facility] Last Admin: 03/08/19 08:22 Dose: 3.125 mg Digoxin (Digoxin) 0.125 mg PO MWF@1400 [facility] Last Admin: 03/06/19 13:16 Dose: 0.125 mg Donepezil HCl (Aricept) 10 mg PO HS [facility] Last Admin: 03/07/19 21:35 Dose: 10 mg Insulin Human Lispro (Humalog Low) 0 units SC [facility]; Protocol Last Admin: 03/08/19 11:38 Dose: Not Given Levothyroxine Sodium (Synthroid) 25 mcg PO 0600 [facility] Last Admin: 03/08/19 05:11 Dose: 25 mcg Lisinopril (Zestril) 2.5 mg PO DAILY [facility] Last Admin: 03/08/19 10:02 Dose: 2.5 mg Memantine (Namenda) 10 mg PO DAILY [facility] Last Admin: 03/08/19 10:02 Dose: 10 mg Multivitamins/Minerals (Therapeutic-M Tab) 1 tab PO 0800 [facility] Lubiprostone [ Amitiza] 24 Mcg ( Home Med) 24 mcg PO BID PRN PRN Reason: Constipation Pantoprazole Sodium (Protonix Ec Tab) 40 mg PO 0600 [facility] Last Admin: 03/08/19 05:11 Dose: 40 mg Prednisone (Prednisone Tab) 20 mg PO DAILY [facility] Last Admin: 03/08/19 10:01 Dose: 20 mg Tramadol HCl (Ultram) 50 mg PO Q8 PRN PRN Reason: Pain, Mild (1-3) Warfarin Sodium (Coumadin) 2.5 mg PO 1800 [facility]; Protocol Zolpidem Tartrate (Ambien) 5 mg PO HS [facility]; Protocol Last Admin: 03/07/19 21:35 Dose: 5 mg - Labs Labs: 03/08/19 07:00 03/08/19 07:00 PT 22.1 SECONDS (9.4-12.5) H 03/08/19 07:00 INR 1.96 03/08/19 07:00 APTT 32.4 Seconds (26.9-38.3) 03/06/19 05:30 Assessment and Plan - Assessment and Plan (Free Text) Plan: Pt seen and examined by me. I have reviewed the note of the medical data analyst and I agree with it. I have discussed the assessment and plan with the resident. I have reviewed the medications and the last labs.
[2019-03-08 08:09] LABS: EOS % 0.4 % (1.5-5.0); LYMPH # 0.7 (1.2-3.4); LYMPH % 13.2 % (22.0-35.0); MEAN CELL VOLUME 96.4 fl (80.0-105.0); MEAN CORPUSCULAR HGB CONC 33.2 g/dl (31.0-37.0); MEAN PLATELET VOLUME 9.9 fl (7.0-11.0); MONO # 0.4 (0.1-0.6); MONO % 7.9 % (1.0-6.0); RBC 2.81 10^6/uL (3.5-6.1); RED CELL DISTRIBUTION WIDTH 13.6 % (11.5-14.5); WHITE BLOOD COUNT 5.1 10^3/uL (4.5-11.0)
[2019-03-08 08:18] LABS: ALBUMIN 2.9 g/dL (3.0-4.8); CALCIUM 8.4 mg/dL (8.4-10.5)
[2019-03-08 08:32] LABS: ALB/GLOB RATIO 1.1 (1.1-1.8); IRON 71 ug/dL (45-180)
[2019-03-08 08:38] LABS: % IRON SATURATION 27 % (20-55); TOTAL IRON BINDING CAPACITY 257 ug/dL (265-497)
[2019-03-08] MEDS: Multivitamin With Minerals Tab PO SCH (12:44)
[2019-03-08] MEDS: Albuterol-Ipratrop 3 mg / 0.5 (3 ml) UD IH PRN (13:48)
--- NOTE | 2019-03-08 14:59 | PN ---
DATE: 03/08/2019 REASON FOR CONSULTATION AND FOLLOWUP: Cardiac evaluation followup, continuity of care in Transitional Care Unit, history of coronary artery disease, history of CABG, history of MVR, history of cardiomyopathy status post AICD, history of chronic atrial fibrillation on Coumadin. SUBJECTIVE: Patient denies any chest pain, shortness of breath, or any palpitations, wanted to go home. PHYSICAL EXAMINATION: VITAL SIGNS: Temperature afebrile, heart rate 81, and blood pressure 144/74. HEENT: PERRLA. Extraocular muscles intact. NECK: Supple. No carotid bruits or thyromegaly. CHEST: Clear to auscultation. HEART: S1 and S2 regular. ABDOMEN: Soft. EXTREMITIES: Clubbing and cyanosis negative. LABORATORY DATA: WBC 5.0, hemoglobin 9, hematocrit 27.1, and platelet count 137. Chemistry shows sodium 139, potassium 4.5, chloride 117, carbon dioxide 24, anion gap of 99, BUN 47, creatinine 1.2. INR is 1.96 today. Total bilirubin 5.4 and albumin 2.9. Albumin/globulin ratio 1.1. IMPRESSION: A 78-year-old female with history of dementia, history of coronary artery disease, history of coronary artery bypass graft and mitral valve repair 20 years ago, history of atrial fibrillation, history of cardiomyopathy with ischemic ejection fraction of 25% status post automatic implantable cardioverter-defibrillator, battery changed about year ago, recently pacemaker interrogation done on 02/15/2019 that shows baseline atrial fibrillation otherwise no other arrhythmia noted. No . Battery life 5.9 here. Patient has history of cerebrovascular accident admitted with failure to thrive. RECOMMENDATIONS: Continue anticoagulation. Goal is to keep INR between 2 to 2.5. The patient had mitral valve replacement, history of multiple stents, history of stroke. Continue Coreg. Continue Aricept. Continue aspirin. Continue atorvastatin. Continue Namenda. Continue levothyroxine. Continue lisinopril 2.5 mg daily. Patient was at home 2.5 mg. His INR is trending down. Yesterday, it was 2.1, is 2.6, will increase to 2.5 starting from today. History of atrial fibrillation on Coumadin. We will repeat INR and CBC tomorrow. We will increase Coumadin to 2.5. Repeat PT, INR, CBC, and SMA-7 in the morning. We will follow with you. Thank you Dr. Lincoln for providing us the opportunity in taking care of the patient, Franchesca Ohara. Cyril Naranjo MD
--- NOTE | 2019-03-08 18:57 | PN ---
DATE: 03/08/2019 ENDOCRINOLOGY FOLLOWUP NOTE LOCATION: Room 319. SUBJECTIVE: This is a 78-year-old female with recent uncontrolled type 2 diabetes, presenting here with failure to thrive and generalized body weakness with progressive weight loss and is now being followed closely for metabolic management. She remains clinically and biochemically euthyroid at this time, although the TSH suppression persists as expected with a progressive weight loss and constitutional manifestations. LABORATORY DATA: Her latest chemistry showed a BUN of 47, sodium 139, potassium 4.5, chloride 111, CO2 of 24, glucose is 58 and creatinine is 1.2. Her glucose values have been in the lower range ranging from 61 to 87 mg/dL. Her latest thyroid studies showed a T4 of 7.3 with a TSH of 0.04. ASSESSMENT: This is a 78-year-old female with a recent acute exacerbation of chronic obstructive pulmonary disease, now also being followed closely for metabolic management. She has progressive weight loss with failure to thrive and marked anorexia despite the family's efforts to give her food from home and with daily encouragement with the daughter as noted. PLAN OF MANAGEMENT: We will continue the lower dose of the levothyroxine given as 50 mcg daily and we will repeat the thyroid studies tomorrow and observe and determine the need to titrate or adjust her dose regimen accordingly. We will encourage frequent small feedings even if she has to eat 6 times a day at smaller portions and this was discussed with the family at bedside. We will obtain serial chemistries and supplement accordingly as needed. Emelia Tracey MD
--- NOTE | 2019-03-08 19:07 | PN ---
DATE: 03/08/2019 SUBJECTIVE: The patient was seen and examined. I do agree with the note of the spanish medical interpreter that was involved in the plan of care. The patient is deconditioned and is getting physical therapy. She says she is improving. She is asking about going home. The patient has dementia and currently, she has no delirium. She is on levothyroxine for her hypothyroidism. The patient is receiving decreased doses of prednisone, has been weaned off as she has COPD that is controlled. She is on Brovana and Pulmicort for her COPD as well. The patient is on digoxin and Coumadin for the atrial fibrillation. She has CHF secondary to systolic dysfunction and is stable. She has chronic anemia and is being followed by Hematology-Oncology. The patient had acute kidney injury that has resolved. She has a history of breast cancer. She is eating well and currently denies any pain. The note of the spanish medical interpreter reviewed. I do agree with it. I was involved in plan of care. Joaquín Lincoln MD
--- NOTE | 2019-03-08 20:23 | PN ---
DATE: 03/08/2019 This is [facility] visit on TCU floor. For Dr. Newman. SUBJECTIVE: The patient is a 78-year-old female, seen sitting up in bed with family at the bedside, anxious for discharge home, feeling better today except for significant gait disturbance. The patient is very unsteady on her feet, high risk for falls. She continues with TCU protocols. OBJECTIVE/PHYSICAL EXAMINATION: VITAL SIGNS: Temperature 98, pulse 81, respirations 18, blood pressure 144/74, and pulse ox 97%. HEENT: Unremarkable. NECK: Supple. HEART: Regular rate; occasional ectopic beat. LUNGS: Rare rhonchi. ABDOMEN: Soft and nontender. EXTREMITIES: No edema. SKIN: Warm and dry. NEUROLOGIC: Awake and alert with significant gait compromise on standing and ambulation. LABORATORY DATA: The patient's labs were done today. White blood cell count of 5.1, hemoglobin 9, hematocrit 27.1, and platelet count of 137,000 with a metabolic panel showing a iron saturation of 27%. BUN 47, creatinine 1.2 with an INR of 1.96. ASSESSMENT: For this patient is that of deconditioning; anemia of chronic disease; history of breast cancer; atrial fibrillation, on Coumadin; hypertension; hypothyroidism; history of cerebrovascular accident; chronic obstructive pulmonary disease; history of gastrointestinal bleed; diabetes mellitus; anxiety; depression and cardiomyopathy. PLAN: Plan for this patient is to continue present medical regimen with recommendation to continue participation with TCU protocols with further recommendations as per consultants. Niall Vega MD
[2019-03-09] MEDS: Levothyroxine 25 MCG TAB PO SCH (05:05)
[2019-03-09] MEDS: Pantoprazole 40 mg EC Tab PO SCH (05:06)
[2019-03-09] MEDS: Insulin Lispro (humaLOG) LOW Coverage SC SCH ×4 (06:46→23:29)
[2019-03-09] MEDS: Budesonide 0.5 mg/2 ml Inhal Susp UD IH SCH ×3 (07:16→19:51)
[2019-03-09] MEDS: Arformoterol 15 mcg/2 ml Inh Sol IH SCH ×3 (07:16→19:50)
[2019-03-09 07:55] LABS: EOS % 0.6 % (1.5-5.0); HEMOGLOBIN 8.6 g/dL (12.0-16.0); LYMPH # 0.7 (1.2-3.4); LYMPH % 15.1 % (22.0-35.0); MEAN CELL VOLUME 98.2 fl (80.0-105.0); MEAN CORPUSCULAR HEMOGLOBIN 31.5 pg (25.0-35.0); MEAN CORPUSCULAR HGB CONC 32.1 g/dl (31.0-37.0); MEAN PLATELET VOLUME 10.1 fl (7.0-11.0); MONO # 0.4 (0.1-0.6); MONO % 8.5 % (1.0-6.0); RBC 2.73 10^6/uL (3.5-6.1); RED CELL DISTRIBUTION WIDTH 14.1 % (11.5-14.5); WHITE BLOOD COUNT 4.7 10^3/uL (4.5-11.0)
[2019-03-09 08:02] LABS: INR 1.77
[2019-03-09] MEDS: Multivitamin With Minerals Tab PO SCH (08:14)
[2019-03-09] MEDS: Albuterol-Ipratrop 3 mg / 0.5 (3 ml) UD IH PRN (08:43)
--- NOTE | 2019-03-09 09:06 | PN ---
DATE: 03/09/2019 PULMONARY PROGRESS NOTE REFERRING DOCTOR: Dr. Lincoln. SUBJECTIVE: The patient is seen lying in bed. No acute distress. No overnight events reported. The patient reports feeling well today stating that she is ready to go home. No headaches, rhinitis, cough, shortness of breath, chest pain, abdominal pain, nausea, vomiting, diarrhea, leg pain or leg swelling reported. PHYSICAL EXAMINATION: VITAL SIGNS: Blood pressure 140/66, pulse 80, temperature 97.9, oxygen saturation 99% on room air. GENERAL: No acute distress HEENT: Moist mucous membranes. NECK: Supple. No JVD. LUNGS: Fair airflow bilaterally CARDIOVASCULAR: S1 and S2. ABDOMEN: Soft, nontender. No distention. No organomegaly. EXTREMITIES: No bilateral lower extremity edema. NEUROLOGIC: Awake, alert and verbal. Following commands. MEDICATIONS: Reviewed. DuoNeb 3 mL inhalation every 2 hours p.r.n., Xanax 0.25 mg at bedtime p.r.n., Brovana 15 mcg inhalation every 12 hours, aspirin 81 mg daily, Lipitor 40 mg at dinner, Zithromax 500 mg daily, Pulmicort 0.5 mg inhalation every 12 hours, Coreg 3.125 mg twice a day, digoxin 0.125 mg p.o. Saturday, Saturday, and Saturday, Aricept 10 mg at bedtime, Humalog sliding scale before meals and at bedtime, Synthroid 25 mcg daily, lisinopril 2.5 mg daily, Namenda 10 mg daily, multivitamins with minerals one tablet daily, Amitiza 24 mcg twice a day p.r.n., Protonix 40 mg daily, prednisone 20 mg daily, tramadol 50 mg every 8 hours p.r.n., Coumadin 2.5 mg daily, Ambien 5 mg at bedtime. LABORATORY DATA: Reviewed. WBC of 4.7, RBC of 2.73, hemoglobin 8.6, hematocrit 26.8, platelets 129. PT of 20, INR of 1.77. POC glucose 159. IMPRESSION AND PLAN: Obstructive lung disease, cardiomyopathy, history of valve replacement, atrial fibrillation, coronary artery disease, the patient had pacemaker placement, hypertension, anemia, hypothyroidism, steroid-dependent, history of breast cancer. Pulmonary point of view, the patient is doing well. Continue inhaled bronchodilators, continue current steroid dosing. Gastric prophylaxis, antibiotic therapy, and fall precautions. The patient is currently on anticoagulation therapy. Continue physical therapy. Recommendation of pulmonary function test as outpatient. The patient was seen and examined with Dr. Justice. Discussed assessment and plan as described above. The patient was seen and examined by Juan Knutson, nurse practitioner. Discussed assessment and plan as described above. Thank you for this consult. We will follow with you. Zenia Martinez APN Cyril Justice MD
--- NOTE | 2019-03-09 12:31 | CP.PCM.PN ---
<Romel Loredo - Last Filed: 03/09/19 12:25> Subjective - Date & Time of Evaluation Date of Evaluation: 03/09/19 Time of Evaluation: 07:40 - Subjective Subjective: Romel Loredo D.O. PGY-3, Internal Medicine Resident, Dr. Lincoln's Service, Progress Note 78 year old female with a PMH of CAD s/p CABG and MV replacement, HFrEF @47%, previous CVA, atrial fibrillation on Coumadin, hypertension, hypothyroidism, breast cancer, achondroplasia, COPD, previous GI bleed, chronic anemia, diabetes, and anxiety/depression who presented originally for weakness, now in the TCU for deconditioning. Patient was seen and examined at bedside. Undergoing breathing treatment. Still adamant about going home. Is participating with PT. Objective - Vital Signs/Intake and Output Vital Signs (last 24 hours): Temp Pulse Resp BP Pulse Ox 97.9 F 75 20 101/57 L 99 03/09/19 06:00 03/09/19 10:42 03/09/19 06:00 03/09/19 10:42 03/09/19 06:00 - Medications Medications: Current Medications Albuterol/Ipratropium (Duoneb 3 Mg/0.5 Mg (3 Ml) Ud) 3 ml IH Q2H PRN PRN Reason: Shortness of Breath Last Admin: 03/09/19 08:43 Dose: 3 ml Alprazolam (Xanax) 0.25 mg PO HS PRN; Protocol PRN Reason: Anxiety Stop: 03/12/19 13:28 Last Admin: 03/05/19 22:17 Dose: 0.25 mg Arformoterol Tartrate (Brovana) 15 mcg IH [id number] [facility] Last Admin: 03/09/19 08:43 Dose: 15 mcg Aspirin (Ecotrin) 81 mg PO 0800 [facility] Last Admin: 03/09/19 08:14 Dose: 81 mg Atorvastatin Calcium (Lipitor) 40 mg PO DIN [facility] Last Admin: 03/08/19 17:44 Dose: 40 mg Azithromycin (Zithromax) 500 mg PO DAILY [facility]; Protocol Last Admin: 03/09/19 10:41 Dose: 500 mg Budesonide (Pulmicort Respules) 0.5 mg IH [id number] [facility] Last Admin: 03/09/19 08:43 Dose: 0.5 mg Carvedilol (Coreg) 3.125 mg PO 0800,1730 [facility] Last Admin: 03/09/19 08:14 Dose: 3.125 mg Digoxin (Digoxin) 0.125 mg PO MWF@1400 [facility] Last Admin: 03/06/19 13:16 Dose: 0.125 mg Donepezil HCl (Aricept) 10 mg PO [facility] Last Admin: 03/08/19 21:27 Dose: 10 mg Insulin Human Lispro (Humalog Low) 0 units SC [facility]; Protocol Last Admin: 03/09/19 11:15 Dose: 1 units Levothyroxine Sodium (Synthroid) 25 mcg PO 0600 [facility] Last Admin: 03/09/19 05:05 Dose: 25 mcg Lisinopril (Zestril) 2.5 mg PO DAILY [facility] Last Admin: 03/09/19 10:42 Dose: 2.5 mg Memantine (Namenda) 10 mg PO DAILY [facility] Last Admin: 03/09/19 10:42 Dose: 10 mg Multivitamins/Minerals (Therapeutic-M Tab) 1 tab PO 0800 [facility] Last Admin: 03/09/19 08:14 Dose: 1 tab Lubiprostone [ Amitiza] 24 Mcg ( Home Med) 24 mcg PO BID PRN PRN Reason: Constipation Pantoprazole Sodium (Protonix Ec Tab) 40 mg PO 0600 [facility] Last Admin: 03/09/19 05:06 Dose: 40 mg Prednisone (Prednisone Tab) 20 mg PO DAILY [facility] Last Admin: 03/09/19 10:42 Dose: 20 mg Tramadol HCl (Ultram) 50 mg PO Q8 PRN PRN Reason: Pain, Mild (1-3) Warfarin Sodium (Coumadin) 3 mg PO 1800 [facility]; Protocol Zolpidem Tartrate (Ambien) 5 mg PO HS [facility]; Protocol Last Admin: 03/08/19 21:27 Dose: 5 mg - Labs Labs: 03/09/19 07:30 03/08/19 07:00 PT 20.0 SECONDS (9.4-12.5) H 03/09/19 07:30 INR 1.77 03/09/19 07:30 APTT 32.4 Seconds (26.9-38.3) 03/06/19 05:30 - Constitutional Appears: Non-toxic, No Acute Distress, Elderly Maldivian female - Head Exam Head Exam: ATRAUMATIC, NORMOCEPHALIC - Eye Exam Eye Exam: EOMI. absent: Scleral icterus - ENT Exam ENT Exam: Mucous Membranes Moist, Normal Oropharynx - Neck Exam Neck exam: Positive for: Normal Inspection - Respiratory Exam Respiratory Exam: Clear to Auscultation Bilateral. absent: Rales, Rhonchi, Wheezes - Cardiovascular Exam Cardiovascular Exam: +S1, +S2. absent: Gallop, Rubs - GI/Abdominal Exam GI & Abdominal Exam: Normal Bowel Sounds, Soft. absent: Distended, Tenderness - Extremities Exam Extremities exam: Negative for: calf tenderness, pedal edema - Neurological Exam Neurological exam: Alert, Awake - Skin Skin Exam: Dry, Warm Assessment and Plan - Assessment and Plan (Free Text) Assessment: 78 year old female with a PMH of CAD s/p CABG and MV replacement, HFrEF @47%, previous CVA, atrial fibrillation on Coumadin, hypertension, hypothyroidism, breast cancer, achondroplasia, COPD, previous GI bleed, chronic anemia, diabetes, and anxiety/depression who presented originally for weakness, now in the TCU for deconditioning. Plan: 1. Deconditioning 2. Dementia 3. CAD s/p CABG and MV replacement 4. Afib 5. HFrEF 6. HTN 7. COPD 8. Chronic anemia 9. Anxiety and depression 10. Hypothyroidism 11. Hyperkalemia 12. GEORGE - resolved 13. History of breast cancer Active with physical therapy. Continues on Aricept and memantine for dementia. For her heart failure with reduced ejection fraction she continues on carvedilol and lisinopril. For her CAD she continues with her aspirin and Lipitor. Endocrinology is following, the recommendations have been reviewed and appreciated she continues on levothyroxine. For her atrial fibrillation her rate is currently controlled with digoxin and her warfarin was increased to 3 mg by cardio given her subtherapeutic INR. We will follow her values. For her COPD she continues to be on prednisone 20 mg as well as Pulmicort, Brovana, and as needed breathing treatments. Pulmonary recommendations of also been reviewed and appreciated. For her anemia and history of breast cancer she is being followed by hematology oncology. Her hemoglobin has been stable and she is hemodynamically stable as well. For her difficulty with sleeping she is currently on zolpidem. Will speak with case management and social work tomorrow when they return to work on her discharge planning. Patient was seen and examined and case was discussed at length with attending physician. <Joaquín Lincoln S - Last Filed: 03/09/19 16:19> Objective - Vital Signs/Intake and Output Vital Signs (last 24 hours): Temp Pulse Resp BP Pulse Ox 98.7 F 75 14 101/57 L 99 03/09/19 10:00 03/09/19 10:42 03/09/19 10:00 03/09/19 10:42 03/09/19 10:00 - Medications Medications: Current Medications Albuterol/Ipratropium (Duoneb 3 Mg/0.5 Mg (3 Ml) Ud) 3 ml IH Q2H PRN PRN Reason: Shortness of Breath Last Admin: 03/09/19 08:43 Dose: 3 ml Alprazolam (Xanax) 0.25 mg PO HS PRN; Protocol PRN Reason: Anxiety Stop: 03/12/19 13:28 Last Admin: 03/05/19 22:17 Dose: 0.25 mg Arformoterol Tartrate (Brovana) 15 mcg IH [id number] [facility] Last Admin: 03/09/19 08:43 Dose: 15 mcg Aspirin (Ecotrin) 81 mg PO 0800 [facility] Last Admin: 03/09/19 08:14 Dose: 81 mg Atorvastatin Calcium (Lipitor) 40 mg PO DIN [facility] Last Admin: 03/08/19 17:44 Dose: 40 mg Azithromycin (Zithromax) 500 mg PO DAILY [facility]; Protocol Last Admin: 03/09/19 10:41 Dose: 500 mg Budesonide (Pulmicort Respules) 0.5 mg IH [id number] [facility] Last Admin: 03/09/19 08:43 Dose: 0.5 mg Carvedilol (Coreg) 3.125 mg PO 0800,1730 [facility] Last Admin: 03/09/19 08:14 Dose: 3.125 mg Digoxin (Digoxin) 0.125 mg PO MWF@1400 [facility] Last Admin: 03/09/19 13:55 Dose: 0.125 mg Donepezil HCl (Aricept) 10 mg PO HS [facility] Last Admin: 03/08/19 21:27 Dose: 10 mg Insulin Human Lispro (Humalog Low) 0 units SC [facility]; Protocol Last Admin: 03/09/19 11:15 Dose: 1 units Levothyroxine Sodium (Synthroid) 25 mcg PO 0600 [facility] Last Admin: 03/09/19 05:05 Dose: 25 mcg Lisinopril (Zestril) 2.5 mg PO DAILY [facility] Last Admin: 03/09/19 10:42 Dose: 2.5 mg Memantine (Namenda) 10 mg PO DAILY [facility] Last Admin: 03/09/19 10:42 Dose: 10 mg Multivitamins/Minerals (Therapeutic-M Tab) 1 tab PO 0800 [facility] Last Admin: 03/09/19 08:14 Dose: 1 tab Lubiprostone [ Amitiza] 24 Mcg ( Home Med) 24 mcg PO BID PRN PRN Reason: Constipation Pantoprazole Sodium (Protonix Ec Tab) 40 mg PO 0600 [facility] Last Admin: 03/09/19 05:06 Dose: 40 mg Prednisone (Prednisone Tab) 20 mg PO DAILY [facility] Last Admin: 03/09/19 10:42 Dose: 20 mg Tramadol HCl (Ultram) 50 mg PO Q8 PRN PRN Reason: Pain, Mild (1-3) Warfarin Sodium (Coumadin) 3 mg PO 1800 [facility]; Protocol Zolpidem Tartrate (Ambien) 5 mg PO HS [facility]; Protocol Last Admin: 03/08/19 21:27 Dose: 5 mg - Labs Labs: 03/09/19 07:30 03/08/19 07:00 PT 20.0 SECONDS (9.4-12.5) H 03/09/19 07:30 INR 1.77 03/09/19 07:30 APTT 32.4 Seconds (26.9-38.3) 03/06/19 05:30 Assessment and Plan - Assessment and Plan (Free Text) Plan: Pt seen and examined by me. I have reviewed the note of the medical videographer and I agree with it. I have discussed the assessment and plan with the resident. I have reviewed the medications and the last labs.
--- NOTE | 2019-03-09 13:15 | PN ---
DATE: 03/09/2019 ENDO FOLLOWUP NOTE LOCATION: Room 319, [facility]. SUBJECTIVE: This is a 78-year-old female with recent admission for generalized body weakness and [id number] with also supervening early hypothyroidism and is now being followed closely for metabolic management. Her oral intake remains extremely poor and suboptimal with very nil intake of her meal portions as noted. Her glycemic levels are fluctuating, but improved and the glucose values overnight have ranged from 109 to 159 and 295 mg/dL. Her latest thyroid studies showed a T4 of 7.3 with a TSH of 0.04. ASSESSMENT: This is a 78-year-old female with known history of hypothyroidism, most likely related to underlying autoimmune thyroiditis with supervening generalized body weakness and [id number] with marked anorexia and weight loss and clearly has much lower levothyroxine requirement therapy as noted. She also has acute superimposed sick euthyroid syndrome as noted. There was a recent exacerbation of chronic obstructive pulmonary disease as noted and is currently stable hemodynamically. PLAN OF MANAGEMENT: We will continue the modified and lower dosing of the levothyroxine given as 25 mcg once daily as given. We will also continue the low-dose correction scale with Humalog insulin as given. We will obtain serial chemistries and supplement accordingly needed. We will follow. Emelia Tracey MD
--- NOTE | 2019-03-09 13:20 | PN ---
DATE: 03/09/2019 REASON FOR CONSULTATION: Cardiac evaluation and followup, continuity of care in Transitional Care Unit, history of coronary artery disease, history of CABG, history of MVR, history of cardiomyopathy status post AICD, and history of atrial fibrillation, on Coumadin. SUBJECTIVE: The patient denies any chest pain, shortness of breath, or any palpitation. OBJECTIVE: Examination as follows; GENERAL: Not in apparent distress. VITAL SIGNS: Temperature afebrile, heart rate 80, and blood pressure 140/66. HEENT: PERRLA. Extraocular muscles intact. NECK: Supple. No carotid bruits or thyromegaly. CHEST: Clear to auscultation. HEART: S1 and S2 regular. ABDOMEN: Soft. EXTREMITIES: Clubbing and cyanosis, negative. LABORATORY DATA: Blood workup; WBC 4.3, hemoglobin 8.6, hematocrit 26.8, and platelet count 129. Chemistry shows as of yesterday; sodium 130, potassium 4.5, chloride 101, carbon dioxide 24, anion gap of 9, BUN 47, and creatinine 1.2. IMPRESSION: A 78-year-old female with a past medical history significant for dementia, history of coronary artery disease, history of coronary artery bypass surgery, mitral valve repair 20 years ago, history of atrial fibrillation, and history of cardiomyopathy with ischemic ejection fraction of 25%, status post automatic implantable cardioverter-defibrillator, battery change a year ago. Pacemaker interrogation done on 02/15/2019 that shows baseline atrial fibrillation. No arrhythmia. No ventricular tachycardia. No . Battery life is 5.9 years. History of recent coronary intervention a year ago. CVA status is stable. RECOMMENDATIONS: Continue anticoagulation. Goal is to keep INR between 2 to 2.5; INR was 1.77 yesterday. Coumadin was increased to 2.5. We will increase to 3 mg from today. Follow up INR. Possible discharge . We will give 3 mg today. Follow up INR. We will repeat the blood workup in the morning. Cyril Naranjo MD
[2019-03-09] MEDS: Digoxin 125 mcg (0.125 mg) Tab PO SCH (13:55)
[2019-03-09 13:56] VITALS: PULSE 78
[2019-03-09 18:42] VITALS: RESP 18; TEMP 98.9; O2SAT 100
--- NOTE | 2019-03-09 19:25 | PN ---
DATE: 03/09/2019 SUBJECTIVE: The patient was seen and examined. I do agree with the note of the medical management specialist. I was involved in the plan of care. The patient had gait dysfunction and is deconditioned. The patient has dementia, Alzheimer's type and is receiving Aricept. She is on digoxin and Coumadin for her atrial fibrillation. She is on Synthroid for her hypothyroidism. The patient is getting nebulizer treatment for her COPD. The patient has chronic anemia. The patient has continued to work with Physical Therapy. She is known to be on insulin for her diabetes. She is on Lipitor for dyslipidemia. The patient is on tramadol for pain. She is on a heart-healthy diet. Joaquín Lincoln MD
--- NOTE | 2019-03-09 19:30 | PN ---
DATE: 03/09/2019 This is Franchesca Ohara's hospital visit on the TCU floor. For Dr. Newman. SUBJECTIVE: The patient is a 78-year-old female admitted to TCU for reconditioning, reporting that she wants to go home, reporting that she does not think that anyone is helping her here at this facility and that she could do just as well at home. I reported to the patient that this is dependent on her attending doctor, Dr. Garcia's recommendation and that she should participate with the protocols and once she is strong enough, we will likely send her home. Otherwise, she is without complaint this visit with gait disturbance noted in the past. OBJECTIVE/PHYSICAL EXAMINATION: VITAL SIGNS: Temperature 98.7, pulse 75, respirations 14, blood pressure 101/57, pulse ox 99%. HEENT: Unremarkable. Tongue is moist. NECK: Supple. HEART: Regular rate. LUNGS: Clear. ABDOMEN: Soft, nontender. EXTREMITIES: No edema. SKIN: Warm and dry. NEUROLOGIC: Awake and alert. LABORATORY DATA: The patient's labs were done. White blood cell count of 4.7, hemoglobin of 8.6, hematocrit 26.8, platelet count of 129,000. Metabolic panel not done today. Nonfasting glucose of 155. Her INR is 1.77. ASSESSMENT: Deconditioning and atherosclerotic cardiovascular disease, history of coronary artery bypass graft, mitral valve replacement, cardiomyopathy, atrial fibrillation, on Coumadin, anemia of chronic disease, status post defibrillator placement, pacer, diabetes mellitus, hypothyroidism, history of breast cancer, history of cerebrovascular accident, anxiety, depression. PLAN: The plan for this patient is to check her labs in the morning with the dose adjustment of her Coumadin as per Dr. Naranjo. Other recommendations as per consultants. This is a complex patient with a comprehensive medically necessary and appropriate visit carried out in excess of 15 minutes with the patient's questions answered to her satisfaction. Niall Vega MD
[2019-03-10] MEDS: Levothyroxine 25 MCG TAB PO SCH (05:14)
[2019-03-10] MEDS: Pantoprazole 40 mg EC Tab PO SCH (05:14)
[2019-03-10 06:40] LABS: EOS % 0.4 % (1.5-5.0); HEMOGLOBIN 8.7 g/dL (12.0-16.0); LYMPH # 0.7 (1.2-3.4); LYMPH % 12.7 % (22.0-35.0); MEAN CELL VOLUME 97.8 fl (80.0-105.0); MEAN CORPUSCULAR HGB CONC 32.7 g/dl (31.0-37.0); MONO # 0.3 (0.1-0.6); MONO % 5.3 % (1.0-6.0); RBC 2.72 10^6/uL (3.5-6.1); RED CELL DISTRIBUTION WIDTH 14.2 % (11.5-14.5); WHITE BLOOD COUNT 5.3 10^3/uL (4.5-11.0)
[2019-03-10 06:43] LABS: INR 1.92; PROTHROMBIN TIME 21.7 SECONDS (9.4-12.5)
[2019-03-10 07:11] LABS: FREE T4 0.9 ng/dL (0.78-2.19)
[2019-03-10 07:12] LABS: ALB/GLOB RATIO 1.2 (1.1-1.8); CALCIUM 8.5 mg/dL (8.4-10.5)
[2019-03-10] MEDS: Insulin Lispro (humaLOG) LOW Coverage SC SCH (07:28)
[2019-03-10] MEDS: Arformoterol 15 mcg/2 ml Inh Sol IH SCH (07:35)
[2019-03-10] MEDS: Budesonide 0.5 mg/2 ml Inhal Susp UD IH SCH (07:35)
[2019-03-10] MEDS: Multivitamin With Minerals Tab PO SCH (07:47)
--- NOTE | 2019-03-10 09:08 | PN ---
DATE: 03/07/2019 REFERRING PHYSICIAN: Joaquín Lincoln MD. SUBJECTIVE: She is sitting at the side of the bed. The night was unremarkable. She is having lunch. Friend is at bedside. She feels better. Mild cough and short of breath. No nausea. No vomiting. No diarrhea. No leg pain or leg swelling. PHYSICAL EXAMINATION GENERAL: No acute distress. VITAL SIGNS: Temperature is 98, heart rate is 81, respiratory rate is 18, blood pressure 144/74, and pulse ox 97% on room air. HEENT: Moist mucous membranes. Crowded airway. NECK: Supple. No JVD. LUNGS: Few scattered rhonchi. No wheezing. HEART: S1 and S2. ABDOMEN: Soft and nontender. No organomegaly. EXTREMITIES: No edema. NEUROLOGIC: Awake, alert, follows simple commands. LABORATORY DATA: Shows hemoglobin 9, hematocrit 27.1, WBC 5.1, platelet count is 137. INR 1.96. Sodium 139, potassium 4.5, chloride 111, bicarbonate 24, BUN 47, creatinine 1.2, glucose 87, calcium is 8.4. Iron is 71, TIBC 257, transferrin 169, ferritin 903. AST 23, ALT 38, alkaline phosphatase is 94, albumin is 2.9. MEDICATIONS: She is on Ambien 5 mg at bedtime p.r.n., Aricept 10 mg at bedtime, Brovana inhaled twice a day, Coreg 3.125 mg twice a day, Coumadin 2.5 mg daily, digoxin 0.125 mg Saturday, Saturday, and Saturday, DuoNeb every 12 hours p.r.n. Ecotrin 81 mg daily, insulin coverage, Lipitor 40 mg at bedtime, Amitiza 24 mcg p.o. twice a day p.r.n., Namenda 10 mg daily, prednisone 20 mg daily, Protonix 40 mg daily, Pulmicort inhaled twice a day, Synthroid 25 mcg daily, multivitamins daily, Ultram 50 mg every 8 hours p.r.n., Xanax 0.25 mg at bedtime p.r.n., Zestril 2.5 mg daily, Zithromax 500 mg daily. IMPRESSION AND PLAN: Chronic obstructive lung disease, cardiomyopathy, coronary artery disease, history of valvular replacement in the past, atrial fibrillation, has a pacemaker, hypertension, anemia, hypothyroid, steroid dependent, history of blood cancer. From this point of view, doing well. Continue p.o. and inhaled bronchodilator. Gastric prophylaxis. Sleep apnea precautions. Careful with sedation. Continue anticoagulation. Continue therapy. Thank you and we will follow with you. Cyril Justice MD
[2019-03-10 10:12] VITALS: BP 101/61; PULSE 78
--- NOTE | 2019-03-10 11:32 | CP.PCM.DIS ---
<Romel Loredo - Last Filed: 03/10/19 11:42> Provider - Provider Date of Admission: 03/05/19 13:20 Attending physician: Joaquín Lincoln MD Consults: 03/05/19 13:42 Hematology Oncology Consult Routine Comment: Consulting Provider: Alexandra Newman Consulting Physician: Alexandra Newman Reason for Consult: Anemia Psychiatry Consult Routine Comment: Consulting Provider: Eveline Martin Consulting Physician: Eveline Martin Reason for Consult: Decision making Pulmonology Consult Routine Comment: Consulting Provider: Cyril Justice Consulting Physician: Cyril Justice Reason for Consult: COPD 03/05/19 13:44 Case Management Referral Routine Comment: Physician Instructions: Reason For Exam: [facility] SN evaluation for home health services. Reason for Referral: Discharge Planning Social Work Referral Routine Comment: new admit Physician Instructions: Reason For Exam: new admit 03/05/19 13:47 Cardiology Consult Routine Comment: Consulting Provider: Cyril Naranjo Consulting Physician: Cyril Naranjo Reason for Consult: HFrEF Endocrinology Consult Routine Comment: Consulting Provider: Emelia Tracey Consulting Physician: Emelia Tracey Reason for Consult: Hypothyroidism 03/05/19 14:34 Transition In Care/Readmission Reduction Routine Comment: Physician Instructions: Reason For Exam: new admit Time Spent in preparation of Discharge (in minutes): 50 Diagnosis - Discharge Diagnosis (1) Ambulatory dysfunction Status: Acute (2) COPD exacerbation Status: Acute (3) Chronic renal insufficiency Status: Acute (4) CHF (congestive heart failure) Status: Chronic Priority: Medium (5) COPD (chronic obstructive pulmonary disease) Status: Chronic Priority: Medium (6) GEORGE (acute kidney injury) Status: Resolved Priority: Medium Hospital Course - Lab Results Lab Results: Most Recent Lab Values WBC 5.3 10^3/uL (4.5-11.0) 03/10/19 06:15 RBC 2.72 10^6/uL (3.5-6.1) L 03/10/19 06:15 Hgb 8.7 g/dL (12.0-16.0) L 03/10/19 06:15 Hct 26.6 % (36.0-48.0) L 03/10/19 06:15 MCV 97.8 fl (80.0-105.0) 03/10/19 06:15 MCH 32.0 pg (25.0-35.0) 03/10/19 06:15 MCHC 32.7 g/dl (31.0-37.0) 03/10/19 06:15 RDW 14.2 % (11.5-14.5) 03/10/19 06:15 Plt Count 125 10^3/uL (120.0-450.0) 03/10/19 06:15 MPV 10.0 fl (7.0-11.0) 03/10/19 06:15 Neut % (Auto) 81.6 % (50.0-68.0) H 03/10/19 06:15 Lymph % (Auto) 12.7 % (22.0-35.0) L 03/10/19 06:15 Desha % (Auto) 5.3 % (1.0-6.0) 03/10/19 06:15 Eos % (Auto) 0.4 % (1.5-5.0) L 03/10/19 06:15 Baso % (Auto) 0.0 % (0.0-3.0) 03/10/19 06:15 Lymph # (Auto) 0.7 (1.2-3.4) L 03/10/19 06:15 Desha # (Auto) 0.3 (0.1-0.6) 03/10/19 06:15 Eos # (Auto) 0.0 (0.0-0.7) 03/10/19 06:15 Baso # (Auto) 0.00 K/mm3 (0.0-2.0) 03/10/19 06:15 Absolute Neuts (auto) 4.30 (1.4-6.5) 03/10/19 06:15 PT 21.7 SECONDS (9.4-12.5) H 03/10/19 06:15 INR 1.92 03/10/19 06:15 APTT 32.4 Seconds (26.9-38.3) 03/06/19 05:30 Sodium 136 mmol/L (132-148) 03/10/19 06:15 Potassium 4.8 mmol/L (3.6-5.0) 03/10/19 06:15 Chloride 111 mmol/L (98-107) H 03/10/19 06:15 Carbon Dioxide 23 mmol/L (21-33) 03/10/19 06:15 Anion Gap 8 (10-20) L 03/10/19 06:15 BUN 50 mg/dL (7-21) H 03/10/19 06:15 Creatinine 1.3 mg/dl (0.7-1.2) H 03/10/19 06:15 Est GFR ( Amer) 48 03/10/19 06:15 Est GFR (Non-Af Amer) 40 03/10/19 06:15 POC Glucose (mg/dL) 121 mg/dL (65-110) H 03/10/19 04:45 Random Glucose 113 mg/dL (70-110) H 03/10/19 06:15 Hemoglobin A1c 5.7 % (4.2-6.5) 03/06/19 05:30 Calcium 8.5 mg/dL (8.4-10.5) 03/10/19 06:15 Phosphorus 2.5 mg/dL (2.5-4.5) 03/06/19 05:30 Magnesium 1.9 mg/dL (1.7-2.2) 03/10/19 06:15 Iron 71 ug/dL (45-180) 03/08/19 07:00 TIBC 257 ug/dL (265-497) L 03/08/19 07:00 % Saturation 27 % (20-55) 03/08/19 07:00 Transferrin 169.87 mg/dL (206-381) L 03/08/19 07:00 Ferritin 903.0 ng/mL 03/08/19 07:00 Total Bilirubin 0.3 mg/dL (0.2-1.3) 03/10/19 06:15 AST 23 U/L (14-36) 03/10/19 06:15 ALT 42 U/L (7-56) 03/10/19 06:15 Alkaline Phosphatase 88 U/L (38-126) 03/10/19 06:15 Total Protein 5.6 g/dL (5.8-8.3) L 03/10/19 06:15 Albumin 3.0 g/dL (3.0-4.8) 03/10/19 06:15 Globulin 2.6 gm/dL 03/10/19 06:15 Albumin/Globulin Ratio 1.2 (1.1-1.8) 03/10/19 06:15 Free T4 0.90 ng/dL (0.78-2.19) 03/10/19 06:15 Thyroxine (T4) 5.5 ug/dL (5.5-11.0) 03/10/19 06:15 TSH 3rd Generation 0.15 mIU/mL (0.46-4.68) L 03/10/19 06:15 - Hospital Course Hospital Course: Romel Loredo D.O. PGY-3, Internal Medicine Resident, Dr. Lincoln's Service, Discharge Summary 78 year old female with a PMH of CAD s/p CABG and MV replacement, HFrEF @47%, previous CVA, atrial fibrillation on Coumadin, hypertension, hypothyroidism, breast cancer, achondroplasia, COPD, previous GI bleed, chronic anemia, diabetes, and anxiety/depression who presented originally for weakness, who was trasnferred from inpatient to the TCU for deconditioning. Patient participated with physical therapy. Patient had her home medications from aformeterol and budesonide and as needed breathing nebulizers for her COPD. Her steroids were slowly decreased and she was kept on PO prednisone. She was followed by pulmonology. Her pain was well managed with her home tramadol. She was continued on zolpidem for her GERD she was kept on Protonix. For her dementia she was kept on memantine and donepezil. For hypothyroidism she was followed by endocrinology and kept on levothyroxine. For her heart failure with reduced ejection fraction she was followed by cardiology and was kept on carvedilol and lisinopril. For her CAD she was on aspirin and Lipitor. For her anemia she was also followed by pathology oncology. Her GEORGE improved but she still has a degree of CKD. She was evaluated by psychiatry as there was a concern about her capacity to make decisions and long-term planning and she was deemed to be competent. There was a concern from her partner as she is apparently moving back to her home country and will not be able to help take care of the patient. Patient however states that she absolutely does not want to go to any type of facility and that she has other friends and family that can help. Patient was seen and examined today and found to be doing much better. Patient will be discharged home. Discussed all medications. Medication reconciliation was performed. Patient states that she has all her medicines at home. Patient was given clear instructions to follow-up with her primary medical doctor within 1 to 2 weeks. Follow-up with cardiology, endocrinology, hematology oncology, pulmonology, and psychiatry as indicated. Discussed with case management. Discussed with nursing staff. Patient will have a homemaker waiting for her at home. All questions welcomed and answered to her and her partners verbal satisfaction. - Date & Time of H&P Date of H&P: 03/10/19 Time of H&P: 11:30 Discharge Exam - Head Exam Head Exam: ATRAUMATIC, NORMOCEPHALIC - Eye Exam Eye Exam: EOMI. absent: Scleral icterus - ENT Exam ENT Exam: Mucous Membranes Moist, Normal Oropharynx - Neck Exam Neck exam: Normal Inspection - Respiratory Exam Respiratory Exam: Clear to PA & Lateral. absent: Rales, Rhonchi, Wheezes - Cardiovascular Exam Cardiovascular Exam: +S1, +S2. absent: Gallop, Rubs - GI/Abdominal Exam GI & Abdominal Exam: Normal Bowel Sounds, Soft. absent: Distended, Tenderness - Extremities Exam Extremities exam: normal capillary refill - Neurological Exam Neurological exam: Alert, Oriented x3 - Psychiatric Exam Psychiatric exam: Normal Affect, Normal Mood - Skin Skin Exam: Dry, Warm Discharge Plan - Follow Up Plan Condition: GOOD Disposition: HOME/ ROUTINE Instructions: Preventing Falls in the Older Adult, Weakness (GEN) Additional Instructions: 1. Follow up with PMD within 1-2 weeks. 2. Maintain hydration. 3. Maintain physical activity. 4. Refer to medication reconciliation for medication regimen. <Joaquín Lincoln - Last Filed: 03/10/19 14:51> Provider - Provider Date of Admission: 03/05/19 13:20 Attending physician: Joaquín Lincoln MD Consults: 03/05/19 13:42 Hematology Oncology Consult Routine Comment: Consulting Provider: Alexandra Newman Consulting Physician: Alexandra Newman Reason for Consult: Anemia Psychiatry Consult Routine Comment: Consulting Provider: Eveline Martin Consulting Physician: Eveline Martin Reason for Consult: Decision making Pulmonology Consult Routine Comment: Consulting Provider: Cyril Justice Consulting Physician: Cyril Justice Reason for Consult: COPD 03/05/19 13:44 Case Management Referral Routine Comment: Physician Instructions: Reason For Exam: [facility] SN evaluation for home health services. Reason for Referral: Discharge Planning Social Work Referral Routine Comment: new admit Physician Instructions: Reason For Exam: new admit 03/05/19 13:47 Cardiology Consult Routine Comment: Consulting Provider: Cyril Naranjo Consulting Physician: Cyril Naranjo Reason for Consult: HFrEF Endocrinology Consult Routine Comment: Consulting Provider: Emelia Tracey Consulting Physician: Emelia Tracey Reason for Consult: Hypothyroidism 03/05/19 14:34 Transition In Care/Readmission Reduction Routine Comment: Physician Instructions: Reason For Exam: new admit Hospital Course - Lab Results Lab Results: Most Recent Lab Values WBC 5.3 10^3/uL (4.5-11.0) 03/10/19 06:15 RBC 2.72 10^6/uL (3.5-6.1) L 03/10/19 06:15 Hgb 8.7 g/dL (12.0-16.0) L 03/10/19 06:15 Hct 26.6 % (36.0-48.0) L 03/10/19 06:15 MCV 97.8 fl (80.0-105.0) 03/10/19 06:15 MCH 32.0 pg (25.0-35.0) 03/10/19 06:15 MCHC 32.7 g/dl (31.0-37.0) 03/10/19 06:15 RDW 14.2 % (11.5-14.5) 03/10/19 06:15 Plt Count 125 10^3/uL (120.0-450.0) 03/10/19 06:15 MPV 10.0 fl (7.0-11.0) 03/10/19 06:15 Neut % (Auto) 81.6 % (50.0-68.0) H 03/10/19 06:15 Lymph % (Auto) 12.7 % (22.0-35.0) L 03/10/19 06:15 Desha % (Auto) 5.3 % (1.0-6.0) 03/10/19 06:15 Eos % (Auto) 0.4 % (1.5-5.0) L 03/10/19 06:15 Baso % (Auto) 0.0 % (0.0-3.0) 03/10/19 06:15 Lymph # (Auto) 0.7 (1.2-3.4) L 03/10/19 06:15 Desha # (Auto) 0.3 (0.1-0.6) 03/10/19 06:15 Eos # (Auto) 0.0 (0.0-0.7) 03/10/19 06:15 Baso # (Auto) 0.00 K/mm3 (0.0-2.0) 03/10/19 06:15 Absolute Neuts (auto) 4.30 (1.4-6.5) 03/10/19 06:15 PT 21.7 SECONDS (9.4-12.5) H 03/10/19 06:15 INR 1.92 03/10/19 06:15 APTT 32.4 Seconds (26.9-38.3) 03/06/19 05:30 Sodium 136 mmol/L (132-148) 03/10/19 06:15 Potassium 4.8 mmol/L (3.6-5.0) 03/10/19 06:15 Chloride 111 mmol/L (98-107) H 03/10/19 06:15 Carbon Dioxide 23 mmol/L (21-33) 03/10/19 06:15 Anion Gap 8 (10-20) L 03/10/19 06:15 BUN 50 mg/dL (7-21) H 03/10/19 06:15 Creatinine 1.3 mg/dl (0.7-1.2) H 03/10/19 06:15 Est GFR ( Amer) 48 03/10/19 06:15 Est GFR (Non-Af Amer) 40 03/10/19 06:15 POC Glucose (mg/dL) 121 mg/dL (65-110) H 03/10/19 04:45 Random Glucose 113 mg/dL (70-110) H 03/10/19 06:15 Hemoglobin A1c 5.7 % (4.2-6.5) 03/06/19 05:30 Calcium 8.5 mg/dL (8.4-10.5) 03/10/19 06:15 Phosphorus 2.5 mg/dL (2.5-4.5) 03/06/19 05:30 Magnesium 1.9 mg/dL (1.7-2.2) 03/10/19 06:15 Iron 71 ug/dL (45-180) 03/08/19 07:00 TIBC 257 ug/dL (265-497) L 03/08/19 07:00 % Saturation 27 % (20-55) 03/08/19 07:00 Transferrin 169.87 mg/dL (206-381) L 03/08/19 07:00 Ferritin 903.0 ng/mL 03/08/19 07:00 Total Bilirubin 0.3 mg/dL (0.2-1.3) 03/10/19 06:15 AST 23 U/L (14-36) 03/10/19 06:15 ALT 42 U/L (7-56) 03/10/19 06:15 Alkaline Phosphatase 88 U/L (38-126) 03/10/19 06:15 Total Protein 5.6 g/dL (5.8-8.3) L 03/10/19 06:15 Albumin 3.0 g/dL (3.0-4.8) 03/10/19 06:15 Globulin 2.6 gm/dL 03/10/19 06:15 Albumin/Globulin Ratio 1.2 (1.1-1.8) 03/10/19 06:15 Free T4 0.90 ng/dL (0.78-2.19) 03/10/19 06:15 Thyroxine (T4) 5.5 ug/dL (5.5-11.0) 03/10/19 06:15 TSH 3rd Generation 0.15 mIU/mL (0.46-4.68) L 03/10/19 06:15 - Hospital Course Hospital Course: Patient was seen and examined by me. I have reviewed the note of the medical office administrator and have gone over the plan of care. I agree with the note. I have reviewed the medications and the last labs.
--- NOTE | 2019-03-10 13:25 | PN ---
DATE: 03/10/2019 PULMONARY PROGRESS NOTE REFERRING PHYSICIAN: Dr. Lincoln. SUBJECTIVE: The patient is seen sitting at the edge of the bed. No acute distress. No overnight events reported, reports being discharged home today. No headache, rhinitis, cough, shortness of breath, chest pain, abdominal pain, nausea, vomiting, diarrhea, leg pain, or leg swelling reported. OBJECTIVE: VITAL SIGNS: Blood pressure 109/60, pulse 80, temperature 98.9, oxygen saturation 100% on room air. GENERAL: In no acute distress. HEENT: Moist mucous membranes. NECK: Supple. No JVD. LUNGS: Fair air flow bilaterally. CARDIOVASCULAR: S1 and S2. ABDOMEN: Soft, nontender. No distention. No organomegaly. EXTREMITIES: No bilateral lower extremity edema. NEUROLOGIC: Awake, alert, and verbal. Following commands. MEDICATIONS: Reviewed. DuoNeb 3 mL inhalation every 12 hours p.r.n., Xanax 0.25 mg at bedtime p.r.n., Brovana 15 mg inhalation every 12 hours, aspirin 81 mg daily, Lipitor 40 mg at dinner, Zithromax 500 mg daily, Pulmicort 0.5 mg inhalation every 12 hours, Coreg 3.125 mg twice a day, digoxin 0.125 mg Saturday, Saturday and Saturday, Aricept 10 mg at bedtime, Humalog sliding scale a.c. and at bedtime, Synthroid 25 mcg daily, lisinopril 2.5 mg a day, Namenda 10 mg daily, multivitamin and minerals one half daily, Amitiza 24 mcg twice a day p.r.n., Protonix 40 mg daily, prednisone 20 mg daily, Ultram 50 mg every 8 hours p.r.n., Coumadin 3 mg daily, and Ambien 5 mg at bedtime. LABORATORY DATA: Reviewed. WBC 5.3, RBC 2.72, hemoglobin 8.7, hematocrit 26.6, platelets 125, PT 21.7, INR 1.92. Sodium 136, potassium 4.8, chloride 111, carbon dioxide 23, anion gap 8, BUN 50, creatinine 1.3, GFR 40, POC glucose 121, random glucose 113, calcium 8.5, magnesium 1.9, total bilirubin 0.3, AST 23, ALT 42, alkaline phosphatase 88, total protein 5.6, albumin 3, globulin 2.6, albumin globulin ratio 1.2, T4 of 0.9, thyroxine 5.5, and TSH 0.15. IMPRESSION AND PLAN: Obstructive lung disease, cardiomyopathy, history of valve replacement, atrial fibrillation, coronary artery disease, pacemaker placement, hypertension, anemia, hypothyroidism, steroid dependent, history of breast cancer. The patient discharge home today. Pulmonary point of view, continued gastric prophylaxis, currently an anticoagulation therapy, fall precautions. We will recommend tapering the patient's prednisone over the next 4-5 days. Recommend the patient have full pulmonary function test as outpatient evaluated with a chronic lung disease. The patient is seen and examined with Dr. Justice, discussed assessment plan described above. The patient is seen and examined with Zenia Martinez, nurse practitioner. Discussed assessment and plan as described above. Thank you for this consult. We will follow with you. Zenia Martinez APN Cyril Justice MD
--- NOTE | 2019-03-10 17:08 | PN ---
DATE: 03/10/2019 REASON FOR CONSULTATION AND FOLLOWUP: Cardiac evaluation and followup, continuity of care in Transitional Care Unit, history of coronary artery disease, history of CABG, history of MVR, history of cardiomyopathy status post AICD, atrial fibrillation, on Coumadin. SUBJECTIVE: The patient denies any chest pain, shortness of breath, or any palpitations. PHYSICAL EXAMINATION: GENERAL: Not in apparent distress. VITAL SIGNS: Temperature afebrile, heart rate 78, and blood pressure 101/61. HEENT: PERRLA. Extraocular muscles intact. NECK: Supple. No carotid bruits or thyromegaly. CHEST: Clear to auscultation. HEART: S1 and S2 regular. ABDOMEN: Soft. EXTREMITIES: Clubbing and cyanosis negative. LABORATORY DATA: Blood workup: WBC 5.3, hemoglobin 8.3, hematocrit 26.6, and platelet count 125. Chemistry shows sodium 130, potassium 4.3, chloride 101, carbon dioxide 23, anion gap of 8, BUN 50, creatinine 1.3. IMPRESSION: A 78-year-old female with a past medical history significant for coronary artery disease, history of coronary artery bypass, history of mitral valve repair 20 years ago, history of atrial fibrillation, history of cardiomyopathy with ischemic ejection fraction of 25%, history of automatic implantable cardioverter-defibrillator placed, history of pacemaker interrogation on 02/25/2019 that shows a baseline atrial fibrillation, no other arrhythmia except baseline atrial fibrillation. No ventricular tachycardia noted. Battery life is 5.9 years. History of recent coronary intervention a year ago; status post cerebrovascular accident status is stable. RECOMMENDATIONS: Continue anticoagulation. Goal is to keep INR between 2 to 2.5, INR is 1.92. Continue carvedilol. Continue dig. Continue atorvastatin. Possible discharge home. Thank you, Dr. Lincoln, for providing us the opportunity in taking care of the patient, Franchesca Ohara. Cyril Naranjo MD
--- NOTE | 2019-03-10 21:02 | PN ---
DATE: 03/10/2019 ENDOCRINOLOGY FOLLOWUP NOTE LOCATION: Room 319. SUBJECTIVE: This is a 78-year-old female with recent overt generalized body weakness and failure to thrive with marked anorexia and weight loss and is now being followed closely for metabolic management. She remains clinically euthyroid and biochemically had much lower levothyroxine requirements because of the recent weight loss as noted. Her latest thyroid studies showed a thyroxine level of 5.5 with a free T4 of 0.90 and a TSH of 0.15 as noted. ASSESSMENT: This is a 78-year-old female with acute sick euthyroid syndrome with recent generalized body weakness, anorexia and weight loss and failure to thrive with supervening much lesser levothyroxine requirements for her current therapy as noted. PLAN OF MANAGEMENT: We will continue the modified and much lower dosing of levothyroxine given as 25 mcg once daily in the morning as ordered. We will obtain serial chemistries and supplement accordingly needed. We will also request a repeat thyroid study in 4-6 weeks post discharge to allow for full dose equilibration of her recent dose adjustments of the levothyroxine replacement therapy. We will follow. Emelia Tracey MD
--- NOTE | 2019-03-11 02:07 | DS ---
HISTORY OF PRESENT ILLNESS: The patient was seen and examined. I do agree with the note of the biomedical engineering internship. I was involved in the plan of care. The patient was here getting physical therapy. She is going to be discharge home today. She has CHF secondary to diastolic dysfunction. The patient has atrial fibrillation. She is on Coumadin. She has hypothyroidism and is on Synthroid. She has finished her steroids. She does not wish to stay in the hospital any longer. Her acute kidney injury has improved. She will be discharged home to followup with her primary care doctor. CONDITION: Stable. ACTIVITIES: As tolerated. Joaquín Lincoln MD
--- NOTE | 2019-03-11 08:26 | CP.PCM.PN ---
<RaheemAnderson - Last Filed: 03/11/19 08:27> Subjective - Date & Time of Evaluation Date of Evaluation: 03/10/19 Time of Evaluation: 08:26 - Subjective Subjective: Heme/onc progress - Raheem PGY - 2 Patient seen and examined at bedside with no acute overnight events. Patient states she is still fatigued but is feeling better. No new complaints including chest pain, n/v/d. SOB improved; patient is participating well in PT/OT. Is for discharge today. Objective - Vital Signs/Intake and Output Vital Signs (last 24 hours): Temp Pulse Resp BP Pulse Ox 98.9 F 78 18 101/61 100 03/09/19 16:00 03/10/19 10:09 03/09/19 16:00 03/10/19 10:09 03/09/19 16:00 - Labs Labs: 03/10/19 06:15 03/10/19 06:15 PT 21.7 SECONDS (9.4-12.5) H 03/10/19 06:15 INR 1.92 03/10/19 06:15 APTT 32.4 Seconds (26.9-38.3) 03/06/19 05:30 - Constitutional Appears: Well - Head Exam Head Exam: ATRAUMATIC, NORMAL INSPECTION, NORMOCEPHALIC - Eye Exam Eye Exam: EOMI, Normal appearance, PERRL Pupil Exam: NORMAL ACCOMODATION, PERRL - ENT Exam ENT Exam: Mucous Membranes Moist, Normal Exam - Neck Exam Neck Exam: Full ROM, Normal Inspection. absent: Lymphadenopathy - Respiratory Exam Respiratory Exam: Clear to Ausculation Bilateral, NORMAL BREATHING PATTERN - Cardiovascular Exam Cardiovascular Exam: REGULAR RHYTHM, +S1, +S2. absent: Murmur - GI/Abdominal Exam GI & Abdominal Exam: Soft, Normal Bowel Sounds. absent: Tenderness - Extremities Exam Extremities Exam: Full ROM, Normal Capillary Refill, Normal Inspection. absent: Joint Swelling, Pedal Edema - Back Exam Back Exam: NORMAL INSPECTION - Neurological Exam Neurological Exam: Alert, Awake, CN II-XII Intact, Normal Gait, Oriented x3 - Psychiatric Exam Psychiatric exam: Normal Affect, Normal Mood - Skin Skin Exam: Dry, Intact, Normal Color, Warm Assessment and Plan - Assessment and Plan (Free Text) Assessment: 78-year-old female with a pertinent history of breast CA s/p right breast mastectomy with compression fractures, anemia, and A. fib and with a mechanical mitral valve (on Coumadin), presented to the ED for shortness of breath, productive cough and weakness. Oncology service consulted for history of breast CA. Given her Afib and mechanical valve, the patient 's goal INR is 2.5- 3.5; she was subtherapeutic on admission; is at 1.92 today, but takes 4 of coumadin at home. Of note, patient had low B12 on last admission. Deconditioning Dementia CAD s/p CABG and MV replacement Afib HFrEF HTN COPD Chronic anemia Anxiety and depression Hypothyroidism Hyperkalemia GEORGE - resolved History of breast cancer Plan - Continue patient on Coumadin at 4 - Continue pulmonary medications <Alexandra Newman P - Last Filed: 03/11/19 19:41> Objective - Vital Signs/Intake and Output Vital Signs (last 24 hours): Temp Pulse Resp BP Pulse Ox 98.9 F 78 18 101/61 100 03/09/19 16:00 03/10/19 10:09 03/09/19 16:00 03/10/19 10:09 03/09/19 16:00 - Labs Labs: 03/10/19 06:15 03/10/19 06:15 PT 21.7 SECONDS (9.4-12.5) H 03/10/19 06:15 INR 1.92 03/10/19 06:15 APTT 32.4 Seconds (26.9-38.3) 03/06/19 05:30 Attending/Attestation - Attestation I have personally seen and examined this patient.: Yes I have fully participated in the care of the patient.: Yes I have reviewed all pertinent clinical information, including history, physical exam and plan: Yes
== END 2019-03-10 12:06 | disposition home or self-care (01) | DRG 945 ==
LOC: TRCU 13:20
PROVIDERS: ADMIT Internal Medicine Nephrology; ATTEND Internal Medicine Nephrology
PROC: F07Z9FZ Gait Training/Functional Ambulation Treatment using Assistive, Adaptive, Supportive or Protective Equipment (ICD-10-PCS; principal; 2019-03-07)
PROC: F07Z8FZ Transfer Training Treatment using Assistive, Adaptive, Supportive or Protective Equipment (ICD-10-PCS; 2019-03-07)
PROC: F07L6YZ Therapeutic Exercise Treatment of Musculoskeletal System - Lower Back / Lower Extremity using Other Equipment (ICD-10-PCS; 2019-03-07)
PROC: F08Z4FZ Home Management Treatment using Assistive, Adaptive, Supportive or Protective Equipment (ICD-10-PCS; 2019-03-07)
DX: R53.1 Weakness (principal); I13.0 Hypertensive heart and chronic kidney disease with heart failure and stage 1 through stage 4 chronic kidney disease, or unspecified chronic kidney disease; I50.40 Unspecified combined systolic (congestive) and diastolic (congestive) heart failure; J44.1 Chronic obstructive pulmonary disease with (acute) exacerbation; R26.81 Unsteadiness on feet; E11.65 Type 2 diabetes mellitus with hyperglycemia; N18.9 Chronic kidney disease, unspecified; G30.9 Alzheimer's disease, unspecified; F02.80 Dementia in other diseases classified elsewhere, unspecified severity, without behavioral disturbance, psychotic disturbance, mood disturbance, and anxiety; I25.5 Ischemic cardiomyopathy; D63.8 Anemia in other chronic diseases classified elsewhere; E11.22 Type 2 diabetes mellitus with diabetic chronic kidney disease; E07.81 Sick-euthyroid syndrome; E78.5 Hyperlipidemia, unspecified; E87.5 Hyperkalemia; F32.9 Major depressive disorder, single episode, unspecified; F41.9 Anxiety disorder, unspecified; I25.10 Atherosclerotic heart disease of native coronary artery without angina pectoris; I25.82 Chronic total occlusion of coronary artery; I48.2 Chronic atrial fibrillation; R62.7 Adult failure to thrive; K21.9 Gastro-esophageal reflux disease without esophagitis; E89.0 Postprocedural hypothyroidism; D50.9 Iron deficiency anemia, unspecified; Z85.3 Personal history of malignant neoplasm of breast; Z90.11 Acquired absence of right breast and nipple; Z87.891 Personal history of nicotine dependence; Z86.73 Personal history of transient ischemic attack (TIA), and cerebral infarction without residual deficits; Z95.810 Presence of automatic (implantable) cardiac defibrillator; Z95.1 Presence of aortocoronary bypass graft; Z95.2 Presence of prosthetic heart valve; Z95.5 Presence of coronary angioplasty implant and graft; Z79.01 Long term (current) use of anticoagulants; Z79.52 Long term (current) use of systemic steroids; Z79.84 Long term (current) use of oral hypoglycemic drugs